=== PATIENT | male | born 1955 | race African-American/Black ===

== ENCOUNTER 2018-07-22 20:23 | Emergency (ER) | payer OTHER ==
--- OUTSIDE RECORDS SUMMARY | 2018-07-22 20:32 | XMS REPORT | Clinical Summary ---
:1955 Author Organization [facility] Address [address] [place] [address] Care Team Providers Name Role Phone Sharpless Primary Care Provider Allergies No Known Allergies Medications Medication Sig Dispensed Refills Start End Status Date Date PROCTOSOL HC 2.5 % . 0 02/08/20 Active rectal cream 16 amLODIPine (NORVASC) 5 Take 1 tablet 90 tablet 3 03/11/20 Active MG tablet (5 mg total) by 16 mouth daily. atorvastatin (LIPITOR) Take 1 tablet 90 tablet 3 03/11/20 Active 40 MG tablet (40 mg total) 16 by mouth daily. clopidogrel (PLAVIX) Take 1 tablet 90 tablet 3 03/11/20 Active 75 mg tablet (75 mg total) 16 by mouth daily. ranitidine (ZANTAC) Take 1 capsule 180 capsule 3 03/11/20 Active 150 MG capsule (150 mg total) 16 by mouth 2 (two) times daily. carvedilol (COREG) Take 1 tablet 180 tablet 3 03/11/20 Active 12.5 MG tablet (12.5 mg total) 16 by mouth 2 (two) times daily with breakfast and dinner. losartan (COZAAR) 100 Take 1 tablet 90 tablet 3 03/11/20 Active MG tablet (100 mg total) 16 by mouth daily. clopidogrel bisulfate Take 75 mg by 0 Active (PLAVIX ORAL) mouth daily . ranitidine (ZANTAC) Take 150 mg by 0 Active 150 MG tablet mouth 2 (two) times daily. aspirin 81 MG EC Take 81 mg by 0 Active tablet mouth daily. memantine (NAMENDA) 10 Take 10 mg by 0 Active MG tablet mouth 2 (two) times daily. losartan (COZAAR) 100 Take 100 mg by 0 Active MG tablet mouth daily. OXcarbazepine Take 300 mg by 0 Active (TRILEPTAL) 300 MG mouth 2 (two) tablet times daily. cephalexin (KEFLEX) Take 500 mg by 0 Active 500 MG capsule mouth daily Pt. Uses to prevent UTI for chronic catheter use. . QUEtiapine (SEROQUEL) Take 25 mg by 0 Active 25 MG tablet mouth nightly. amLODIPine (NORVASC) Take 10 mg by 0 Active 10 MG tablet mouth daily. levETIRAcetam (KEPPRA) Take 1,000 mg 0 Active 1000 MG tablet by mouth 2 (two) times daily. atorvastatin (LIPITOR) Take 40 mg by 0 Active 40 MG tablet mouth daily At bedtime . hydroCHLOROthiazide Take 1 tablet 0 05/28/20 Active (HYDRODIURIL) 25 MG (25 mg total) 18 019 tablet by mouth daily. carvedilol (COREG) Take 1 tablet 0 05/27/20 Active 3.125 MG tablet (3.125 mg 18 019 total) by mouth 2 (two) times daily. ipratropium-albuterol Take 3 mLs by 0 05/27/20 Active (DUO-NEB) 0.5 mg-3 nebulization 18 019 mg(2.5 mg base)/3 mL every 4 (four) nebulizer solution hours as needed for Wheezing for up to 360 days. cloNIDine HCl Take 0.3 mg by 0 Discontinued (CATAPRES) 0.3 MG mouth 3 (three) 018 tablet times daily. 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, without status epilepticus Essential hypertension 05/20/2018 Acute cystitis without hematuria 05/20/2018 Acute ischemic stroke 05/18/2018 Aphasia as late effect of cerebrovascular accident 03/06/2016 Uncomplicated alcohol dependence 03/06/2016 Focal epilepsy 03/06/2016 VITALY (acute kidney injury) 03/06/2016 Status epilepticus 02/28/2016 Acute encephalopathy 02/28/2016 Stroke (cerebrum) 02/27/2016 Stroke 12/22/2014 Gait disturbance 12/22/2014 STEMI (ST elevation myocardial infarction) 09/23/2014 Encounters Date Type Specialty Care Team Description 05/26/2018 Anesthesia Event Gastroenterology Yvon Sanchez MD 05/26/2018 Surgery Gastroenterology Aleksandr, UPPER ENDOSCOPY,PEG Chandu King MD 05/20/2018 Travel 05/19/2018 Travel 05/18/2018 Hospital General Internal VuKaia, Cerebrovascular accident (CVA), unspecified mechanism (HCC) (Primary Dx); - Encounter Medicine Hypertension, unspecified type; 05/28/2018 Zeynep Dong History of CVA (cerebrovascular accident); MD Aixa Renal insufficiency; Changela, Acute cystitis without hematuria; Laurel Lester MD Aspiration pneumonia, unspecified aspiration pneumonia type, unspecified laterality, unspecified part of lung (HCC); [facility] Essential hypertension; Vita Anthony Stage 3 chronic kidney disease (HCC); Patrizia Chronic systolic congestive heart failure ([facility]) MD 05/18/2018 Orders Only General Internal Medicine after 07/21/2017 Social History Tobacco Use Types Packs/Day Years Used Date Former Smoker Smokeless Tobacco: Never Used Alcohol Use Drinks/Week oz/Week Comments Yes 6 CANS OF BEER A DAY. Sex Assigned at Date Recorded Not on file Job Start Date Occupation Industry Not on file Not on file Not on file Travel History Travel Start Travel End No recent travel history available. Last Filed Vital Signs Vital Sign Reading Time Taken Blood Pressure 125/83 05/28/2018 11:42 AM [facility] Pulse 74 05/28/2018 11:42 AM [facility] Temperature 36.4 C (97.5 F) 05/28/2018 11:42 AM [facility] Respiratory Rate 18 05/28/2018 11:42 AM [facility] Oxygen Saturation 98% 05/28/2018 11:42 AM [facility] Inhaled Oxygen Concentration 30% 05/28/2018 5:00 AM [facility] Weight 109.2 kg (240 lb 11.9 oz) 05/21/2018 6:00 AM CDT Height 180.3 cm (5' 11") 05/19/2018 6:24 PM CDT Body Mass Index 33.58 05/21/2018 6:00 AM CDT Plan of Treatment Not on file Implants Implanted Type Area Broadcast Engineer Device Shelf Model / Identifier Expiration Date Serial / Lot Multi-Link Vision KAY 04/20/2017 [id number] / Implanted: Qty: 1 on 09/23/2014 [facility] / [id number] Procedures Procedure Name Priority Date/Time Associated Comments Diagnosis ARRYTHMIA IMPLANT 05/29/2018 1:00 REPORT - SCAN PM [facility] [employer] [facility] RHYTHM STRIP - SCAN 05/29/2018 1:00 PM [employer] [employer] RHYTHM STRIP - SCAN 05/29/2018 7:01 AM [facility] [employer] ECHOCARDIOGRAM REPORT - 05/29/2018 7:01 SCAN AM [facility] [employer] VASCULAR DIAGRAM -SCAN 05/29/2018 7:01 AM [employer] RHYTHM STRIP - SCAN 05/29/2018 7:01 AM [employer] CARDIAC CATH REPORT - 05/29/2018 7:00 SCAN AM [employer] ECHOCARDIOGRAM REPORT - 05/29/2018 7:00 SCAN AM [employer] RHYTHM STRIP - SCAN 05/29/2018 7:00 AM [employer] RHYTHM STRIP - SCAN 05/29/2018 7:00 AM [facility] [employer] CARDIAC CATH REPORT - 05/29/2018 7:00 SCAN AM [facility] [employer] REPORT OF PROCEDURE - 05/29/2018 7:00 ENDOSCOPY SCAN AM [facility] [employer] VASCULAR DIAGRAM -SCAN 05/29/2018 7:00 AM [facility] [employer] RHYTHM STRIP - SCAN 05/29/2018 7:00 AM [facility] [employer] ECHOCARDIOGRAM REPORT - 05/29/2018 7:00 SCAN AM [facility] [employer] [facility] POCT-GLUCOSE METER Routine 05/28/2018 12:25 Results for this PM [facility] [employer] procedure are in the results section. POCT-GLUCOSE METER Routine 05/28/2018 5:49 Results for this AM [facility] [employer] procedure are in the results section. POCT-GLUCOSE METER Routine 05/27/2018 11:45 Results for this PM [facility] [employer] procedure are in the results section. POCT-GLUCOSE METER Routine 05/27/2018 5:41 Results for this PM [facility] [employer] procedure are in the results section. POCT-GLUCOSE METER Routine 05/27/2018 12:38 Results for this PM [employer] [employer] procedure are in the results section. POCT-GLUCOSE METER Routine 05/27/2018 6:49 Results for this AM [facility] [employer] procedure are in the results section. POCT-GLUCOSE METER Routine 05/27/2018 12:53 Results for this AM [facility] [employer] procedure are in the results section. POCT-GLUCOSE METER Routine 05/26/2018 4:54 Results for this PM [facility] [employer] procedure are in the results section. REPORT OF PROCEDURE - 05/26/2018 11:42 ENDOSCOPY URL AM [facility] [employer] [facility] UPPER ENDOSCOPY,PEG 05/26/2018 11:00 Dysphagia, AM [facility] [employer] unspecified type POCT-GLUCOSE METER Routine 05/26/2018 5:33 Results for this AM [facility] [employer] procedure are in the results section. PHOSPHORUS Routine 05/26/2018 4:37 Results for this AM [facility] [employer] procedure are in the results section. VANCOMYCIN LEVEL, Timed 05/26/2018 4:37 Results for this TROUGH AM [facility] [employer] procedure are in the results section. POCT-GLUCOSE METER Routine 05/25/2018 11:20 Results for this PM [facility] [employer] procedure are in the results section. XR ABDOMEN 1 VIEW Routine 05/25/2018 5:58 Results for this PM [facility] [employer] procedure are in the results section. POCT-GLUCOSE METER Routine 05/25/2018 4:06 Results for this PM [facility] [employer] procedure are in the results section. POCT-GLUCOSE METER Routine 05/25/2018 6:28 Results for this AM [facility] [employer] procedure are in the results section. BASIC METABOLIC PANEL Routine 05/25/2018 5:58 Results for this (7) AM [facility] [employer] [facility] procedure are in the results section. PHOSPHORUS Routine 05/25/2018 5:58 Results for this AM [facility] [employer] [facility] procedure are in the results section. POCT-GLUCOSE METER Routine 05/25/2018 12:03 Results for this AM CDT procedure are in the results section. ECG 12-LEAD Routine 05/24/2018 4:56 Results for this PM CDT procedure are in the results section. ECG 12-LEAD Routine 05/24/2018 4:56 PM CDT Procedure Note - Interface, External Ris In - 05/24/2018 5:14 PM CDT Ventricular Rate 84 BPM Atrial Rate 84 BPM P-R Interval 122 ms QRS Duration 116 ms Q-T Interval 394 ms QTC Calculation(Bazett) 465 ms P Dickens 102 degrees R Dickens -44 degrees T Dickens 216 degrees Normal sinus rhythm Left axis deviation Left ventricular hypertrophy with QRS widening and repolarization abnormality Inferior infarct (cited on or before 18-MAY-2018) Abnormal ECG When compared with ECG of 21-MAY-2018 11:02, Premature ventricular complexes are no longer Present T wave inversion more evident in Inferior leads POCT-GLUCOSE METER Routine 05/24/2018 12:20 PM CDT PHOSPHORUS Routine 05/24/2018 5:40 AM CDT POCT-GLUCOSE METER Routine 05/24/2018 5:29 AM CDT POCT-GLUCOSE METER Routine 05/23/2018 11:30 PM CDT ECHOCARDIOGRAM REPORT - 05/23/2018 4:21 PM CDT SCAN POCT-GLUCOSE METER Routine 05/23/2018 11:45 AM CDT 2D ECHO W/ DOPPLER Routine 05/23/2018 10:50 AM CDT Results for this (CW/PW/COLOR) procedure are in the results section. POCT-GLUCOSE METER Routine 05/23/2018 6:33 AM CDT CBC W/PLT COUNT & AUTO Routine 05/23/2018 3:38 AM CDT Results for this DIFFERENTIAL procedure are in the results section. BASIC METABOLIC PANEL (7) Routine 05/23/2018 3:38 AM CDT CBC W/PLT COUNT & AUTO Routine 05/23/2018 3:38 AM CDT Results for this DIFFERENTIAL procedure are in the results section. POCT-GLUCOSE METER Routine 05/23/2018 12:00 AM CDT SPUTUM CULTURE + GRAM STAIN Routine 05/22/2018 8:19 PM CDT VANCOMYCIN LEVEL, TROUGH Timed 05/22/2018 7:02 PM CDT POCT-GLUCOSE METER Routine 05/22/2018 6:31 PM CDT POCT-GLUCOSE METER Routine 05/22/2018 1:26 PM CDT VITAMIN B12 Routine 05/22/2018 11:08 AM CDT TSH/FREE T4 IF INDICATED Routine 05/22/2018 11:08 AM CDT BLOOD GAS, ARTERIAL Routine 05/22/2018 10:10 AM CDT XR CHEST 1 VIEW Routine 05/22/2018 9:38 AM CDT Results for this PORTABLE/BEDSIDE procedure are in the results section. POCT-GLUCOSE METER Routine 05/22/2018 6:22 AM CDT CBC W/PLT COUNT & AUTO Routine 05/22/2018 3:48 AM CDT Results for this DIFFERENTIAL procedure are in the results section. BASIC METABOLIC PANEL (7) Routine 05/22/2018 3:48 AM CDT CBC W/PLT COUNT & AUTO Routine 05/22/2018 3:48 AM CDT Results for this DIFFERENTIAL procedure are in the results section. POCT-GLUCOSE METER Routine 05/22/2018 12:40 AM CDT POCT-GLUCOSE METER Routine 05/21/2018 6:27 PM CDT POCT-GLUCOSE METER Routine 05/21/2018 12:17 PM CDT ECG 12-LEAD Routine 05/21/2018 11:02 AM CDT CBC W/PLT COUNT & AUTO Routine 05/21/2018 3:15 AM CDT Results for this DIFFERENTIAL procedure are in the results section. CBC W/PLT COUNT & AUTO Routine 05/21/2018 3:15 AM CDT Results for this DIFFERENTIAL procedure are in the results section. BASIC METABOLIC PANEL (7) Routine 05/21/2018 3:15 AM CDT POCT-GLUCOSE METER Routine 05/20/2018 10:14 PM CDT XR ABDOMEN 1 VIEW STAT 05/20/2018 10:13 PM CDT XR ABDOMEN 1 VIEW STAT 05/20/2018 10:13 PM CDT XR ABDOMEN 1 VIEW STAT 05/20/2018 10:13 PM CDT POCT-GLUCOSE METER Routine 05/20/2018 6:10 PM CDT POCT-GLUCOSE METER Routine 05/20/2018 12:47 PM CDT SPUTUM CULTURE + GRAM STAIN STAT 05/20/2018 8:40 AM CDT POCT-GLUCOSE METER Routine 05/20/2018 8:16 AM CDT BLOOD GAS, ARTERIAL STAT 05/20/2018 4:39 AM CDT URINALYSIS W/ REFLEX URINE STAT 05/20/2018 4:07 AM CDT Results for this CULTURE procedure are in the results section. URINE CULTURE STAT 05/20/2018 4:07 AM CDT XR ABDOMEN 1 VIEW Routine 05/20/2018 4:05 AM CDT BLOOD CULTURE Routine 05/20/2018 2:30 AM CDT (CELLAVISION MANUAL DIFF) Routine 05/20/2018 2:18 AM CDT CBC W/PLT COUNT & AUTO Routine 05/20/2018 2:18 AM CDT Results for this DIFFERENTIAL procedure are in the results section. BASIC METABOLIC PANEL (7) Routine 05/20/2018 2:18 AM CDT CBC W/PLT COUNT & AUTO Routine 05/20/2018 2:18 AM CDT Results for this DIFFERENTIAL procedure are in the results section. BLOOD CULTURE Routine 05/20/2018 2:18 AM CDT BLOOD GAS, ARTERIAL STAT 05/20/2018 12:15 AM CDT POCT-GLUCOSE METER Routine 05/19/2018 9:43 PM CDT POCT-GLUCOSE METER Routine 05/19/2018 5:59 PM CDT XR ABDOMEN 1 VIEW STAT 05/19/2018 5:30 PM CDT XR ABDOMEN 1 VIEW STAT 05/19/2018 3:51 PM CDT XR ABDOMEN 1 VIEW STAT 05/19/2018 1:36 PM CDT POCT-GLUCOSE METER Routine 05/19/2018 12:37 PM CDT XR CHEST 1 VIEW Routine 05/19/2018 12:16 PM CDT Results for this PORTABLE/BEDSIDE procedure are in the results section. POCT-GLUCOSE METER Routine 05/19/2018 8:59 AM CDT TROPONIN I Routine 05/19/2018 8:19 AM CDT LIPID PANEL Routine 05/19/2018 5:55 AM CDT POCT-GLUCOSE METER Routine 05/19/2018 1:55 AM CDT CAROTID DOPPLER BILATERAL Routine 05/19/2018 1:12 AM CDT TROPONIN I Routine 05/19/2018 12:00 AM CDT PHOSPHORUS STAT 05/18/2018 6:56 PM CDT CALCIUM, IONIZED STAT 05/18/2018 6:56 PM CDT RPR Routine 05/18/2018 6:49 PM CDT HEMOGLOBIN A1C AP Routine 05/18/2018 6:41 PM CDT URINALYSIS W/ REFLEX URINE STAT 05/18/2018 6:37 PM CDT Results for this CULTURE procedure are in the results section. URINE CULTURE STAT 05/18/2018 6:37 PM CDT MR BRAIN WITHOUT IV STAT 05/18/2018 4:26 PM CDT Results for this CONTRAST procedure are in the results section. MR MRA NECK WITHOUT IV STAT 05/18/2018 4:26 PM CDT Results for this CONTRAST procedure are in the results section. MR MRA HEAD WITHOUT STAT 05/18/2018 4:26 PM CDT Results for this CONTRAST procedure are in the results section. CT/CTA CAROTID STAT 05/18/2018 1:[address]/CTA BRAIN STAT 05/18/2018 1:12 PM CDT CREATINE KINASE (CK), TOTAL STAT 05/18/2018 12:27 PM CDT Results for this AND MB procedure are in the results section. TROPONIN I STAT 05/18/2018 12:27 PM CDT MAGNESIUM STAT 05/18/2018 12:27 PM CDT BASIC METABOLIC PANEL (7) STAT 05/18/2018 12:27 PM CDT ECG 12-LEAD Routine 05/18/2018 11:39 AM CDT Procedure Note - Interface, External Ris In - 05/18/2018 5:21 PM CDT Ventricular Rate 89 BPM Atrial Rate 89 BPM P-R Interval 102 ms QRS Duration 134 ms Q-T Interval 408 ms QTC Calculation(Bazett) 496 ms P Dickens 70 degrees R Dickens -50 degrees T Dickens 263 degrees Sinus rhythm with sinus arrhythmia with short WA with occasional Premature ventricular complexes Left axis deviation Left ventricular hypertrophy with QRS widening Inferior infarct , age undetermined Anterolateral infarct , age undetermined Abnormal ECG No previous ECGs available ECG 12-LEAD STAT 05/18/2018 11:39 AM CDT POCT-GLUCOSE METER Routine 05/18/2018 11:[address] BRAIN WITHOUT IV CONTRAST STAT 05/18/2018 11:37 AM CDT ED ECG INTERPRETATION Routine 05/18/2018 11:30 AM CDT CRITICAL CARE Routine 05/18/2018 11:30 AM CDT CBC W/PLT COUNT & AUTO STAT 05/18/2018 11:18 AM CDT Results for this DIFFERENTIAL procedure are in the results section. PT/APTT STAT 05/18/2018 11:18 AM CDT CBC W/PLT COUNT & AUTO STAT 05/18/2018 11:18 AM CDT Results for this DIFFERENTIAL procedure are in the results section. XR CHEST 1 VIEW STAT 05/18/2018 11:18 AM CDT Results for this PORTABLE/BEDSIDE procedure are in the results section. after 07/21/2017 Results ARRYTHMIA IMPLANT REPORT - SCAN (05/29/2018 1:00 PM [facility]) Narrative Performed At RHYTHM STRIP - SCAN (05/29/2018 1:00 PM [facility] [employer] [facility])Only the most recent of6 resultswithin the time period is included. Narrative Performed At ECHOCARDIOGRAM REPORT - SCAN (05/29/2018 7:01 AM [facility] [employer] [facility]) Narrative Performed At VASCULAR DIAGRAM -SCAN (05/29/2018 7:01 AM [facility] [employer] [facility])Only the most recent of2 resultswithin the time period is included. Narrative Performed At CARDIAC CATH REPORT - SCAN (05/29/2018 7:00 AM [facility] [employer] [facility]) Narrative Performed At ECHOCARDIOGRAM REPORT - SCAN (05/29/2018 7:00 AM [facility] [employer] [facility]) Narrative Performed At CARDIAC CATH REPORT - SCAN (05/29/2018 7:00 AM [facility] [employer] [facility]) Narrative Performed At EKG-SCANNED (05/29/2018 7:00 AM [facility] [employer] [facility]) Narrative Performed At ECHOCARDIOGRAM REPORT - SCAN (05/29/2018 7:00 AM [facility] [employer] [facility]) Narrative Performed At POC-Glucose meter (05/28/2018 12:25 PM [facility] [employer] [facility])Only the most recent of35 resultswithin the time period is included. POC-Glucose Meter 130 (H)Comment: TESTED AT 70 - 110 mg/dL [address] [address] Specimen Blood Performing Organization Address City/[facility]/Zipcode Phone Number [address] [address] [phone] [facility] REPORT OF PROCEDURE - ENDOSCOPY URL (05/26/2018 11:42 AM [facility] [employer] [facility]) Narrative Performed At Phosphorus (05/26/2018 4:37 AM [facility])Only the most recent of4 resultswithin the time period is included. Phosphorus 4.0 2.3 - 4.7 mg/dL [facility] Specimen Blood - Arm, Right Narrative Performed At Check Serum Phosphorus level 4 hours after IV [facility] phosphorus replacement or 8 hours after PO replacement completed. Performing Organization Address City/[facility]/Zipcode Phone Number [address] [address] CENTER Vancomycin level, trough (05/26/2018 4:37 AM [facility] [employer] [facility])Only the most recent of2 resultswithin the time period is included. Vancomycin Tr 17.8 10.0 - 20.0 ug/mL [facility] Specimen Blood - Arm, Right Narrative Performed At Wait for result before giving dose. HOLD [facility] vancomycin if trough >20 Performing Organization Address City/State/Zipcode Phone Number [facility] [address] [place] [address] CENTER XR abdomen / KUB 1 view (05/25/2018 5:58 PM [facility] [employer] [facility])Only the most recent of8 resultswithin the time period is included. Narrative Performed At FINAL REPORT GE RIS INDICATION: Abdominal pain and distention. Evaluate for ileus. COMPARISON: May 20, 2018 TECHNIQUE: Abdomen radiograph one view. FINDINGS / IMPRESSION: There is a feeding tube that courses to the stomach with the tip projecting over the expected location of the duodenal bulb, probably postpyloric. Bowel gas pattern is unremarkable (no ileus or obstruction). Right total hip arthroplasty partially imaged. Signed: Andrea Barrera MD Report Verified Date/Time:05/25/2018 18:05:40 Reading Location: [address] Ortho Consult Reading Room Procedure Note Interface, External Ris In - 05/25/2018 6:07 PM [facility] [employer] [facility] FINAL REPORT INDICATION: Abdominal pain and distention. Evaluate for ileus. COMPARISON: May 20, 2018 TECHNIQUE: Abdomen radiograph one view. FINDINGS / IMPRESSION: There is a feeding tube that courses to the stomach with the tip projecting over the expected location of the duodenal bulb, probably postpyloric. Bowel gas pattern is unremarkable (no ileus or obstruction). Right total hip arthroplasty partially imaged. Signed: Andrea Barrera MD Report Verified Date/Time: 05/25/2018 18:05:40 Reading Location: [facility] B1 [id number] Ortho Consult Reading Room Performing Organization Address City/State/Zipcode Phone Number GE RIS Basic Metabolic Panel (05/25/2018 5:58 AM [facility] [employer] [facility])Only the most recent of6 resultswithin the time period is included. Sodium 137 136 - 145 meq/L [facility] Potassium 4.1 3.5 - 5.1 meq/L [facility] Chloride 102 98 - 107 meq/L [facility] CO2 26 22 - 29 meq/L [facility] BUN 31 (H) 7 - 21 mg/dL [facility] Creatinine 1.71 (H) 0.57 - 1.25 mg/dL [facility] Glucose 110 (H) 70 - 105 mg/dL [facility] Calcium 8.9 8.4 - 10.2 mg/dL [facility] EGFR 49Comment: ESTIMATED GFR IS mL/min/1.73 sq m [facility] NOT ACCURATE CREATININE [facility] CLEARANCE IN PREDICTING GLOMERULAR FILTRATION RATE. ESTIMATED GFR IS NOT APPLICABLE FOR DIALYSIS PATIENTS. Specimen Blood Narrative Performed At Check Serum Phosphorus level 4 hours after IV [facility] phosphorus replacement or 8 hours after PO replacement completed. Performing Organization Address City/State/Zipcode Phone Number [facility] [address] [place] [address] CENTER ECG 12 lead (05/24/2018 4:56 PM CDT)Only the most recent of3 resultswithin the time period is included. Narrative Performed At Ventricular Rate 84 BPM GE MUSE Atrial Rate 84 BPM P-R Interval 122 ms QRS Duration 116 ms Q-T Interval 394 ms QTC Calculation(Bazett) 465 ms P Dickens 102 degrees R Dickens -44 degrees T Dickens 216 degrees Normal sinus rhythmwith short WA interval Left axis deviation Left ventricular hypertrophy with QRS widening and repolarization abnormality Inferior infarct (cited on or before 18-MAY-2018) Nonspecific T wave abnormality Prolonged QT When compared with ECG of 21-MAY-2018 11:02, Premature ventricular complexes are no longer Present T waves no longer negative in V2-V3 Confirmed by MD ALICIA, CHANNING ([id number]) on 05/26/2018 6:51:16 AM Procedure Note Interface, External Ris In - 05/26/2018 6:51 AM [facility] Ventricular Rate 84 BPM Atrial Rate 84 BPM P-R Interval 122 ms QRS Duration 116 ms Q-T Interval 394 ms QTC Calculation(Bazett) 465 ms P Dickens 102 degrees R Dickens -44 degrees T Dickens 216 degrees Normal sinus rhythm with short WA interval Left axis deviation Left ventricular hypertrophy with QRS widening and repolarization abnormality Inferior infarct (cited on or before 18-MAY-2018) Nonspecific T wave abnormality Prolonged QT When compared with ECG of 21-MAY-2018 11:02, Premature ventricular complexes are no longer Present T waves no longer negative in V2-V3 Confirmed by MD ALICIA, CHANNING ([id number]) on 05/26/2018 6:51:16 AM Performing Organization Address City/State/Zipcode Phone Number [email or web address] ECHOCARDIOGRAM REPORT - SCAN (05/23/2018 4:21 PM CDT) Narrative Performed At 2D Echo W/Doppler(CW/PW/Color) (05/23/2018 10:50 AM CDT) Ejection Fraction [facility] Narrative Performed At Transthoracic Echocardiography Report (TTE) [facility] Demographics Patient Name Vinay BOLAÑOS of Study 05/23/2018 [id number] GenderMale Visit Number [id number] RaceUnknown [id number] Room Number 7511 Number Date of Birth1955 Referring Physician Pedro Garrison Age62 year(s) Manager Programming Miguelito Miranda AnalystAlex ZadeInterpreting Royal Winkler Physician Procedure Type of Study TTE procedure:2DECHO W DOPPLER(CW/PW/COLOR) (Routine) Indications:Stroke work up. Clinical History HGB 16.4 HCT 49.7 % PNEUMONIA HTN Height: 71 inches Weight: 108.86 kg (240 lbs) BSA: 2.28 m^2 BMI: 33.47 kg/m^2 HR: 91 bpm BP: 141/91 mmHg Summary IV saline contrast injection was negative for a PFO (patent foramen ovale) at rest and post Valsalva . The left ventricle is chamber size (by vol index) is normal (male - LVED vol - 34-74ml/m2). Normal LV wall thickness. The following segment(s) appear akinetic: basal inferior, inferolateral . The other segments contract normally. Global LV systolic function mildly reduced . Estimated LVEF by qualitative assessment is mildly reduced (40-44%) . Estimated peak systolic PA pressure is 25-30 mmHg . No evidence of pericardial effusion. Signature Findings Technical Quality: Technically adequate exam. Left Ventricle The left ventricle is chamber size (by vol index) is normal (male - LVED vol - 34-74ml/m2). Normal LV wa ll thickness. The following segment(s) appear ak inetic: basal inferior, inferolateral . The other se gments contract normally. Global LV systolic fu nction mildly reduced . Estimated LVEF by qu alitative assessment is mildly reduced (40-44%) . Left AtriumLA size is normal . Right VentricleNormal right ventricle structure and function. Right Atrium Normal right atrium. Atrial SeptumIV saline contrast injection was negative for a PFO (p atent foramen ovale) at rest and post Valsalva . Aortic Valve Mild AoV cusp thickening. A trace of aortic regurgitation. Mitral Valve Mild mitral regurgitation. Mild MV leaflet th ickening. Tricuspid ValveA trace of tricuspid regurgitation. A trace of tricuspid regurgitation. Es timated peak systolic PA pressure is 25-30 mmHg . Pulmonic Valve Normal PV structure and function by limited views an d Doppler. AortaAortic root size (SInus of Valsalva diameter) is no rmal . PericardiumNo evidence of pericardial effusion. IVC/SVC/PA/PV/PleuralThe estimated RA pressure by IVC dynamics 0-5mmHg . Chambers/Structures Left Atrium LA Dimension: 3.04 cmLA Area: 19.98 cm^2 LA Volume: 57.18 ml LA Vol. Index: 25 ml/m^2 Left Ventricle LVIDd: 6.47 cm LVEDV:177.54 ml LV Septum Diastolic: 1.11 cmLVEF 2D Cube: 55.8 % LV PW Diastolic: 1.07 cm LVEDV Gant's:134.16 ml LV Length: 8.29 cm LVESV Gant's:74.2 ml LVEF Gant's: 44.9 %LVEDV I: 59 ml/m^2 LVESVI: 33 ml/m^2 LVOT Diameter: 2.12 cm Aorta Ao Root S of Opal.: 3.3 cm Doppler/Quantitative Measurements Mitral Valve MV Peak E-Wave: 0.56 m/s MV Peak A-Wave: 0.73 m/s E/A Ratio: 0.77 Peak Gradient: 1.26 mmHg Deceleration Time: 139.5 msec MV Sb. Peak: Aortic Valve Peak Velocity: 1.4 m/s Mean Velocity: 0.94 m/s Peak Gradient: 7.85 mmHg Mean Gradient: 3.99 mmHg AV Area (continuity): 2.66 cm^2 AV VTI: 21.9 cm AV DVI: 0.75 LVOT Peak Velocity: 1.03 m/s Peak Gradient: 4.29 mmHg Mean Velocity: 0.66 m/s Mean Gradient: 2.08 mmHg LVOT Diameter: 2.12 cmLVOT VTI: 16.5 cm LVOT Area: 3.53 cm^2LVOT SV:58.21 ml LVOT CO: 5.3 l/minLVOT CI: 2.32 l/min/m^2 Procedure Note Interface, External Ris In - 05/23/2018 3:31 PM CDT Transthoracic Echocardiography Report (TTE) Demographics Patient Name DAKOTAH BOLAÑOS Date of Study 05/23/2018 Gender Male Visit Number [id number] Race Unknown Room Number 7511 Number Date of 1955 Referring Physician Pedro Garrison Age 62 year(s) 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 Clinical History HGB 16.4 HCT 49.7 % PNEUMONIA HTN Height: 71 inches Weight: 108.86 kg (240 lbs) BSA: 2.28 m^2 BMI: 33.47 kg/m^2 HR: 91 bpm BP: 141/91 mmHg Summary IV saline contrast injection was negative for a PFO (patent foramen ovale) at rest and post Valsalva . The left ventricle is chamber size (by vol index) is normal (male - LVED vol - 34-74ml/m2). Normal LV wall thickness. The following segment(s) appear akinetic: basal inferior, inferolateral . The other segments contract normally. Global LV systolic function mildly reduced . Estimated LVEF by qualitative assessment is mildly reduced (40-44%) . Estimated peak systolic PA pressure is 25-30 mmHg . No evidence of pericardial effusion. Signature Findings Technical Quality: Technically adequate exam. Left Ventricle The left ventricle is chamber size (by vol index) is normal (male - LVED vol - 34-74ml/m2). Normal LV wall thickness. The following segment(s) appear akinetic: basal inferior, inferolateral . The other segments contract normally. Global LV systolic function mildly reduced . Estimated LVEF by qualitative assessment is mildly reduced (40-44%) . Left Atrium LA size is normal . Right Ventricle Normal right ventricle structure and function. Right Atrium Normal right atrium. Atrial Septum IV saline contrast injection was negative for a PFO (patent foramen ovale) at rest and post Valsalva . Aortic Valve Mild AoV cusp thickening. A trace of aortic regurgitation. Mitral Valve Mild mitral regurgitation. Mild MV leaflet thickening. Tricuspid Valve A trace of tricuspid regurgitation. A trace of tricuspid regurgitation. Estimated peak systolic PA pressure is 25-30 mmHg . Pulmonic Valve Normal PV structure and function by limited views and Doppler. Aorta Aortic root size (SInus of Valsalva diameter) is normal . Pericardium No evidence of pericardial effusion. IVC/SVC/PA/PV/Pleural The estimated RA pressure by IVC dynamics 0-5mmHg . Chambers/Structures Left Atrium LA Dimension: 3.04 cm LA Area: 19.98 cm^2 LA Volume: 57.18 ml LA Vol. Index: 25 ml/m^2 Left Ventricle LVIDd: 6.47 cm LVEDV:177.54 ml LV Septum Diastolic: 1.11 cm LVEF 2D Cube: 55.8 % LV PW Diastolic: 1.07 cm LVEDV Gant's:134.16 ml LV Length: 8.29 cm LVESV Gant's:74.2 ml LVEF Gant's: 44.9 % LVEDVI: 59 ml/m^2 LVESVI: 33 ml/m^2 LVOT Diameter: 2.12 cm Aorta Ao Root S of Opal.: 3.3 cm Doppler/Quantitative Measurements Mitral Valve MV Peak E-Wave: 0.56 m/s MV Peak A-Wave: 0.73 m/s E/A Ratio: 0.77 Peak Gradient: 1.26 mmHg Deceleration Time: 139.5 msec MV Sb. Peak: Aortic Valve Peak Velocity: 1.4 m/s Mean Velocity: 0.94 m/s Peak Gradient: 7.85 mmHg Mean Gradient: 3.99 mmHg AV Area (continuity): 2.66 cm^2 AV VTI: 21.9 cm AV DVI: 0.75 LVOT Peak Velocity: 1.03 m/s Peak Gradient: 4.29 mmHg Mean Velocity: 0.66 m/s Mean Gradient: 2.08 mmHg LVOT Diameter: 2.12 cm LVOT VTI: 16.5 cm LVOT Area: 3.53 cm^2 LVOT SV:58.21 ml LVOT CO: 5.3 l/min LVOT CI: 2.32 l/min/m^2 Performing Organization Address City/State/Zipcode Phone Number [facility] CBC with platelet count + automated diff (05/23/2018 3:38 AM CDT)Only the most recent of5 resultswithin the time period is included. WBC 9.3 3.5 - 10.5 K/L [facility] RBC 5.23 4.63 - 6.08 M/L [facility] Hemoglobin 16.4 13.7 - 17.5 GM/DL [facility] Hematocrit 49.7 40.1 - 51.0 % [facility] MCV 95.0 (H) 79.0 - 92.2 fL [facility] MCH 31.4 25.7 - 32.2 pg [facility] MCHC 33.0 32.3 - 36.5 GM/DL [facility] RDW 13.2 11.6 - 14.4 % [facility] Platelets 123 (L) 150 - 450 K/CU MM [facility] MPV 11.9 9.4 - 12.4 fL [facility] nRBC 0 0 - 0 /100 WBC [facility] % Neutros 63 % [facility] % Lymphs 17 % [facility] % Monos 15 % [facility] % Eos 3 % [facility] % Baso 1 % [facility] # Neutros 5.86 (H) 1.78 - 5.38 K/L [facility] # Lymphs 1.61 1.32 - 3.57 K/L [facility] # Monos 1.37 (H) 0.30 - 0.82 K/L [facility] # Eos 0.32 0.04 - 0.54 K/L [facility] # Baso 0.07 0.01 - 0.08 K/L [facility] Immature Granulocytes-Relative 1 0 - 1 % [facility] Specimen Blood - Arm, Left Performing Organization Address [facility] Phone Number [address] [address] [place] Sputum Culture + Gram Stain (05/22/2018 8:19 PM CDT)Only the most recent of2 resultswithin the time period is included. Result <1+ Normal respiratory paxton [facility] Gram Stain Result 1+ WBCs [facility] Gram Stain Result >25 epithelial cells [facility] Gram Stain Result No organisms seen [facility] Specimen Sputum - Suctioned Performing Organization Address [facility] Phone Number [address] [address] [place] TSH/Free T4 If Indicated (05/22/2018 11:08 AM CDT) TSH 0.53 0.35 - 4.94 uIU/mL [facility] Specimen Blood Performing Organization Address City/[facility] Phone Number [address] [address] [place] Vitamin B12 (05/22/2018 11:08 AM CDT) Vitamin B12 815 213 - 816 pg/mL [facility] Specimen Blood Performing Organization Address City/[facility] Phone Number [address] [address] [place] Blood gas, arterial (05/22/2018 10:10 AM CDT)Only the most recent of3 resultswithin the time period is included. pH, Arterial 7.45 7.35 - 7.45 [facility] pCO2, Arterial 36 35 - 45 mmHg [facility] pO2, Arterial 110 (H) 80 - 90 mmHg [facility] O2 Sat, Arterial 98.2 (H) 96.0 - 97.0 % [facility] HCO3, Arterial 24 21 - 29 mmol/L [facility] Base Excess, Arterial 0.6 -2.0 - 3.0 mmol/L [facility] Patient Temperature 36.9 C [facility] FIO2 28.0 % [facility] Specimen Blood, Arterial - Arm, Right Performing Organization Address City/State/Zipcode Phone Number [facility] [address] [place], [place] [phone] CENTER XR chest 1 view portable / bedside (05/22/2018 9:38 AM CDT)Only the most recent of3 resultswithin the time period is included. Narrative Performed At FINAL REPORT [facility] Chest one view compared to May 19 Discussion: Cardiac prominence and pulmonary congestion are similar in appearance to the prior study. No focal infiltrate. No effusion or pneumothorax. Feeding tube extends into stomach. Signed: Adin Dumont MD Report Verified Date/Time:05/22/2018 10:34:10 Reading Location: [facility] Radiology Reading Room Procedure Note Interface, External Ris In - 05/22/2018 10:36 AM CDT FINAL REPORT Chest one view compared to May 19 Discussion: Cardiac prominence and pulmonary congestion are similar in appearance to the prior study. No focal infiltrate. No effusion or pneumothorax. Feeding tube extends into stomach. Signed: Adin Dumont MD Report Verified Date/Time: 05/22/2018 10:34:10 Reading Location: [facility] Radiology Reading Room Performing Organization Address City/State/Zipcode Phone Number [facility] Urinalysis w/Microscopic + Reflex to Culture (05/20/2018 4:07 AM CDT)Only the most recent of2 resultswithin the time period is included. Color, UA Yellow [facility] Clarity, UA Hazy [facility] Specific [place], UA 1.023 1.001 - 1.035 [facility] pH, UA 5.5 5.0 - 8.0 [facility] Protein, UA 20 mg/dL (A) Negative [facility] Glucose, UA Negative Negative [facility] Ketones, UA Negative Negative [facility] Bilirubin, UA Negative Negative [facility] Blood, UA Moderate (A) Negative [facility] Nitrite, UA Positive (A) Negative [facility] Leukocytes, UA Large (A) Negative [facility] Urobilinogen, UA 0.2 0.2 - 1.0 mg/dL [facility] RBC, UA 71 /HPF [facility] WBC, UA 88 /HPF [facility] Mucus Rare [facility] Hyaline Casts, UA 4 /LPF [facility] Granular Casts, UA 1 /LPF [facility] Specimen Source [facility] Specimen Urine - Urine, Hernandez Performing Organization Address City/[facility] Phone Number [address] [address] CENTER Urine culture (05/20/2018 4:07 AM CDT)Only the most recent of2 resultswithin the time period is included. Result >100,000 col/mL Same organism has been isolated from cultures(s) of the same body site within 3 days. Repeat identification and susceptibility testing performed only after consultation with the clinical microbiology laboratory. (A) [facility] Comment: [facility] Refer to previous culture of Serratia marcescens Specimen Urine - Urine, Hernandez Performing Organization Address City/[facility] Phone Number [address] [place] [address] [phone] CENTER Blood culture (05/20/2018 2:30 AM CDT)Only the most recent of2 resultswithin the time period is included. Result No growth in 5 days [facility] Specimen Blood - Arm, Left Performing Organization Address City/[facility]/Zipcode Phone Number [address] [address] [phone] [place] Manual Differential (05/20/2018 2:18 AM CDT) % Neutros 77 % [facility] % Lymphs 6 % [facility] % Monos 15 % [facility] % Bands 1 0 - 10 % [facility] % Atypical Lymphs 1 (H) 0 - 0 % [facility] # Neutros 8.78 (H) 1.78 - 5.38 K/ul [facility] # Lymphs 0.68 (L) 1.32 - 3.57 K/ul [facility] # Monos 1.71 (H) 0.30 - 0.82 K/uL [facility] # Bands 0.11 0.00 - 0.80 K/uL [facility] # Atypical Lymphs 0.11 (H) 0.00 - 0.00 K/uL [facility] Total Counted 100 [facility] RBC Morphology Normal [facility] WBC Morphology Normal [facility] Platelet Morphology Normal [facility] Platelet Conc Decreased [facility] Specimen Blood - Arm, Right Narrative Performed At Received comment: [facility] User comments: Slide comments: Performing Organization Address City/[facility]/Zipcode Phone Number [address] [address] [phone] CENTER Troponin I (05/19/2018 8:19 AM CDT)Only the most recent of3 resultswithin the time period is included. Troponin I 0.01 0.00 - 0.03 ng/mL [facility] Specimen Blood - Arm, Left Narrative Performed At Troponin I (TnI) levels must be interpreted [facility] in the context of the presenting symptoms and the clinical findings. Elevated TnI levels indicate myocardial damage, but are not specific for ischemic heart disease. Elevated TnI levels are seen in patients with other cardiac conditions (including myocarditis and congestive heart failure), and slight TnI elevations occur in patients with other conditions, including sepsis, renal failure, acidosis, acute neurological disease, and persistent tachyarrhythmia. Performing Organization Address City/[facility] Phone Number [address] [address] [place] Fasting lipid panel (05/19/2018 5:55 AM CDT) Triglycerides 55Comment: Specimen slightly mg/dL [facility] Cholesterol 131Comment: Specimen slightly mg/dL [facility] HDL 40 mg/dL [facility] LDL Calculated 80 mg/dL [facility] Specimen Blood Narrative Performed At Triglyceride Reference Range: [facility] Low Risk <150 [id number] High Risk 200-499 Very High Risk>=500 Cholesterol Reference Range: Low Risk <200 [id number] High Risk>240 HDL Cholesterol Reference Range: Low Risk >=60 High Risk <40 LDL Cholesterol Reference Range: Optimal<100 Near [id number] Very High >=190 Fasting Performing Organization Address City/[facility] Phone Number [address] [address] [place] Carotid doppler bilateral (05/19/2018 1:12 AM CDT) Ejection Fraction [facility] Impressions Performed At Right Impression [facility] 1. There is <50% diameter reduction (approximately 29% by 2-D measurement) in the internal carotid artery with a peak velocity of 70.3/18.9 cm/sec and heterogeneous plaque. 2. There is non-occluding plaque in the external carotid artery. 3. There is non-occluding plaque in the common carotid artery. 4. The vertebral artery flow is antegrade . 5. The subclavian artery is within normal limits where visualized. Left Impression 1. There is <50% diameter reduction (approximately 23% by 2-D measurement) in the internal carotid artery with a peak velocity of 27.8/8.25 cm/sec and heterogeneous plaque. 2. There is non-occluding plaque in the external carotid artery. 3. There is non-occluding plaque in the common carotid artery. 4. The vertebral artery flow is antegrade . 5. The subclavian artery is within normal limits where visualized. Conclusions Summary Carotid duplex scanning and color flow imaging were performed bilaterally. The exam was technically difficult and the arteries were not well visualized due to patient deep breathing, movement and patient body habitus. The bilateral internal carotid arteries had <50% hemodynamically insignificant stenosis (approximately 29% by 2-D measurement on the right, approximately 23% by 2-D measurement on the left) with heterogeneous plaque. The vertebral artery flow was antegrade where visualized. The subclavian arteries were patent with normal flow bilaterally where visualized. Signature Velocities are measured in cm/s ; Diameters are measured in cm Carotid Right Measurements + +----+----+-----+ +---- + + !Location !PSV !EDV !Angle!%Stenosis 2D!%Stenosis Doppler!Tortuosity ! + +----+----+-----+ +---- + + !Prox CCA !67.4!18.8!60 !! ! ! + +----+----+-----+ +---- + + !Dist CCA !82.1!17!60 !! ! ! + +----+----+-----+ +---- + + !Prox ICA !70.3!18.9!60 !29% !<50% ! ! + +----+----+-----+ +---- + + !Dist ICA !66.8!22.3!60 !! ! ! + +----+----+-----+ +---- + + !Prox ECA !137 !22.8!60 !! ! ! + +----+----+-----+ +---- + + !Vertebral!40!14.1!60 !! ! ! + +----+----+-----+ +---- + + !Prox Subclavian!80.1!!60 !! ! ! + +----+----+-----+ +---- + + - There is antegrade vertebral flow noted on the right side. - Additional Measurements:ICAPSV/CCAPSV 0.86.ICAEDV/CCAEDV 1.19. Carotid Left Measurements + +----+----+-----+ +---- + + !Location !PSV !EDV !Angle!%Stenosis 2D!%Stenosis Doppler!Tortuosity ! + +----+----+-----+ +---- + + !Prox CCA !96.7!21!60 !! ! ! + +----+----+-----+ +---- + + !Dist CCA !60.5!15.7!60 !! ! ! + +----+----+-----+ +---- + + !Prox ICA !27.8!8.25!60 !23% !<50% ! ! + +----+----+-----+ +---- + + !Dist ICA !53.8!20.4!60 !! ! ! + +----+----+-----+ +---- + + !Prox ECA !52.6!11.6!60 !! ! ! + +----+----+-----+ +---- + + !Vertebral!22.3!6.72!60 !! ! ! + +----+----+-----+ +---- + + !Prox Subclavian!138 !!60 !! ! ! + +----+----+-----+ +---- + + - There is antegrade vertebral flow noted on the left side. - Additional Measurements:ICAPSV/CCAPSV 0.89.ICAEDV/CCAEDV 0.97. Narrative Performed At LAB - Carotid Duplex Study [facility] Demographics Patient Name DAKOTAH BOLAÑOS JR.Date of Study 05/19/2018 [id number] Age 62 Visit Number [id number] GenderMale Accession Number [id number] Date of [address] [facility] PRoom Number [id number] Alex SonographerChristoph June Physician Procedure Type of Study: Cerebral: Carotid, CAROTID DOPPLER, BILATERAL. Indications for Study:Cerebrovascular accident . Patient Status:Routine. Study Location:Portable. Technical Quality:Technically Difficult. Risk Factors History of Disease + +----+ + !Diagnosis!Date!Comments ! + +----+ + !History/Risk Factors:!!Obesity, HTN, CAD, HLD, DM, Bipolar, Seizures! + +----+ + Procedure Note Interface, External Ris In - 05/19/2018 8:03 AM CDT [facility] - Carotid Duplex Study Demographics Patient Name DAKOTAH BOLAÑOS JR. Date of Study 05/19/2018 Age 62 Visit Number [id number] Gender Male Accession Number [id number] Date of 1955 Referring VITA Burns Room Number 7511 Physician MECHE Manager Programming Christoph Mera Interpreting Keisha June Physician Procedure Type of Study: Cerebral: Carotid, CAROTID DOPPLER, BILATERAL. Indications for Study:Cerebrovascular accident . Patient Status:Routine. Study Location:Portable. Technical Quality:Technically Difficult. Risk Factors History of Disease + +----+ + !Diagnosis !Date!Comments ! + +----+ + !History/Risk Factors:! !Obesity, HTN, CAD, HLD, DM, Bipolar, Seizures ! + +----+ + Impressions Right Impression 1. There is <50% diameter reduction (approximately 29% by 2-D measurement) in the internal carotid artery with a peak velocity of 70.3/18.9 cm/sec and heterogeneous plaque. 2. There is non-occluding plaque in the external carotid artery. 3. There is non-occluding plaque in the common carotid artery. 4. The vertebral artery flow is antegrade . 5. The subclavian artery is within normal limits where visualized. Left Impression 1. There is <50% diameter reduction (approximately 23% by 2-D measurement) in the internal carotid artery with a peak velocity of 27.8/8.25 cm/sec and heterogeneous plaque. 2. There is non-occluding plaque in the external carotid artery. 3. There is non-occluding plaque in the common carotid artery. 4. The vertebral artery flow is antegrade . 5. The subclavian artery is within normal limits where visualized. Conclusions Summary Carotid duplex scanning and color flow imaging were performed bilaterally. The exam was technically difficult and the arteries were not well visualized due to patient deep breathing, movement and patient body habitus. The bilateral internal carotid arteries had <50% hemodynamically insignificant stenosis (approximately 29% by 2-D measurement on the right, approximately 23% by 2-D measurement on the left) with heterogeneous plaque. The vertebral artery flow was antegrade where visualized. The subclavian arteries were patent with normal flow bilaterally where visualized. Signature Velocities are measured in cm/s ; Diameters are measured in cm Carotid Right Measurements + +----+----+-----+ + + + !Location !PSV !EDV !Angle!%Stenosis 2D!%Stenosis Doppler!Tortuosity ! + +----+----+-----+ + + + !Prox CCA !67.4!18.8!60 ! ! ! ! + +----+----+-----+ + + + !Dist CCA !82.1!17 !60 ! ! ! ! + +----+----+-----+ + + + !Prox ICA !70.3!18.9!60 !29% !<50% ! ! + +----+----+-----+ + + + !Dist ICA !66.8!22.3!60 ! ! ! ! + +----+----+-----+ + + + !Prox ECA !137 !22.8!60 ! ! ! ! + +----+----+-----+ + + + !Vertebral !40 !14.1!60 ! ! ! ! + +----+----+-----+ + + + !Prox Subclavian!80.1! !60 ! ! ! ! + +----+----+-----+ + + + - There is antegrade vertebral flow noted on the right side. - Additional Measurements:ICAPSV/CCAPSV 0.86.ICAEDV/CCAEDV 1.19. Carotid Left Measurements + +----+----+-----+ + + + !Location !PSV !EDV !Angle!%Stenosis 2D!%Stenosis Doppler!Tortuosity ! + +----+----+-----+ + + + !Prox CCA !96.7!21 !60 ! ! ! ! + +----+----+-----+ + + + !Dist CCA !60.5!15.7!60 ! ! ! ! + +----+----+-----+ + + + !Prox ICA !27.8!8.25!60 !23% !<50% ! ! + +----+----+-----+ + + + !Dist ICA !53.8!20.4!60 ! ! ! ! + +----+----+-----+ + + + !Prox ECA !52.6!11.6!60 ! ! ! ! + +----+----+-----+ + + + !Vertebral !22.3!6.72!60 ! ! ! ! + +----+----+-----+ + + + !Prox Subclavian!138 ! !60 ! ! ! ! + +----+----+-----+ + + + - There is antegrade vertebral flow noted on the left side. - Additional Measurements:ICAPSV/CCAPSV 0.89.ICAEDV/CCAEDV 0.97. Performing Organization Address [facility] Hospitalcode Phone Number [facility] [employer] [facility]ART[facility] MKCKESSON CPACS Calcium, Ionized (05/18/2018 6:56 PM CDT) Calcium, Ion 1.09 (L) 1.12 - 1.27 mmol/L [facility] pH, Blood 7.39 [facility] Specimen Blood - Arm, Right Performing Organization Address [facility]/Zipcode Phone Number [address] [address] CENTER RPR (05/18/2018 6:49 PM CDT) RPR Nonreactive Nonreactive [facility] Specimen Blood - Arm, Right Performing Organization Address [facility]/[employer] Phone Number [address] [address] CENTER Hemoglobin A1c (05/18/2018 6:41 PM CDT) Hemoglobin A1C 5.8 4.3 - 6.1 % [facility] Specimen Blood - Arm, Right Performing Organization Address City/State/Zipcode Phone Number AB [facility] [address] [place] [address] [phone] CENTER MR brain without IV contrast (05/18/2018 4:26 PM CDT) Narrative Performed At FINAL REPORT [facility] MRI Brain without contrast Clinical History: Stroke Technique: MRI of the brain utilizing axial T2, FLAIR, GRE, DWI; sagittal and coronal T1-weighted images. Comparisons: CT 05/18/2018 Findings: As noted on the head CT, there is acute infarction of the right frontal lobe with involvement of the insula and operculum. There is no evidence for hemorrhage. A chronic encephalomalacic left temporoparietal infarct is again seen. Chronic left anterior frontal encephalomalacia is again seen. There is a punctate chronic right cerebellar infarct. There is periventricular and subcortical white matter T2 hyperintensity, which is nonspecific but compatible with chronic microvascular ischemic change. There is generalized parenchymal volume loss without hydrocephalus, midline shift, or apparent mass effect. There are no extra-axial fluid collections. The craniocervical junction is preserved. IMPRESSION: Acute right frontal opercular and insular infarct without hemorrhage. Chronic left temporoparietal infarct. Chronic left anterior frontal encephalomalacia. Punctate chronic right cerebellar infarct. Signed: Keith Montiel MD Report Verified Date/Time:05/18/2018 16:21:49 Reading Location: [address] Neuro Reading Room Procedure Note Interface, External Ris In - 05/18/2018 4:27 PM CDT FINAL REPORT MRI Brain without contrast Clinical History: Stroke Technique: MRI of the brain utilizing axial T2, FLAIR, GRE, DWI; sagittal and coronal T1-weighted images. Comparisons: CT 05/18/2018 Findings: As noted on the head CT, there is acute infarction of the right frontal lobe with involvement of the insula and operculum. There is no evidence for hemorrhage. A chronic encephalomalacic left temporoparietal infarct is again seen. Chronic left anterior frontal encephalomalacia is again seen. There is a punctate chronic right cerebellar infarct. There is periventricular and subcortical white matter T2 hyperintensity, which is nonspecific but compatible with chronic microvascular ischemic change. There is generalized parenchymal volume loss without hydrocephalus, midline shift, or apparent mass effect. There are no extra-axial fluid collections. The craniocervical junction is preserved. IMPRESSION: Acute right frontal opercular and insular infarct without hemorrhage. Chronic left temporoparietal infarct. Chronic left anterior frontal encephalomalacia. Punctate chronic right cerebellar infarct. Signed: Keith Montiel MD Report Verified Date/Time: 05/18/2018 16:21:49 Reading Location: [address] Neuro Reading Room Performing Organization Address City/State/Zipcode Phone Number [facility] MRA neck without IV contrast (05/18/2018 4:26 PM CDT) Narrative Performed At FINAL REPORT [facility] MRA Head CLINICAL HISTORY: Stroke TECHNIQUE: MRA of the head utilizing 3-D vkww-wm-nrkifx technique, with 3-D reconstructions. COMPARISON: CTA 05/18/2018 FINDINGS: As on the CTA, there is loss of a few right middle cerebral artery anterior division branch vessels compatible with the distribution of acute infarction. Loss of the left middle cerebral artery posterior division branch vessels is again seen compatible the distribution of chronic infarction. There is no other evidence for a [place] proximal branch vessel occlusion. A right posterior communicating artery is again seen. The left vertebral artery essentially terminates in the posterior inferior cerebellar artery. IMPRESSION: Loss of a few right MCA anterior division M2 distal branch vessels again noted. Loss of the left MCA posterior division branch vessels again noted. MRA Neck CLINICAL HISTORY: Stroke TECHNIQUE: MRA of the neck utilizing 2-D and 3-D hkjf-ea-fbrosf technique, with 3-D reconstructions. COMPARISON: CTA 05/18/2018 FINDINGS: There is mild non-hemodynamically significant atherosclerotic disease of the bilateral carotid bifurcations by NASCET criteria. There is antegrade flow in the vertebral arteries in the neck. IMPRESSION: No evidence of hemodynamically significant stenosis in the cervical carotid or vertebral arteries by NASCET criteria. Signed: Keith Montiel MD Report Verified Date/Time:05/18/2018 16:28:01 Reading Location: [address] Neuro Reading Room Procedure Note Interface, External Ris In - 05/18/2018 4:30 PM CDT FINAL REPORT MRA Head CLINICAL HISTORY: Stroke TECHNIQUE: MRA of the head utilizing 3-D wdxs-hp-sqfkce technique, with 3-D reconstructions. COMPARISON: CTA 05/18/2018 FINDINGS: As on the CTA, there is loss of a few right middle cerebral artery anterior division branch vessels compatible with the distribution of acute infarction. Loss of the left middle cerebral artery posterior division branch vessels is again seen compatible the distribution of chronic infarction. There is no other evidence for a [place] proximal branch vessel occlusion. A right posterior communicating artery is again seen. The left vertebral artery essentially terminates in the posterior inferior cerebellar artery. IMPRESSION: Loss of a few right MCA anterior division M2 distal branch vessels again noted. Loss of the left MCA posterior division branch vessels again noted. MRA Neck CLINICAL HISTORY: Stroke TECHNIQUE: MRA of the neck utilizing 2-D and 3-D iqsl-bh-oireks technique, with 3-D reconstructions. COMPARISON: CTA 05/18/2018 FINDINGS: There is mild non-hemodynamically significant atherosclerotic disease of the bilateral carotid bifurcations by NASCET criteria. There is antegrade flow in the vertebral arteries in the neck. IMPRESSION: No evidence of hemodynamically significant stenosis in the cervical carotid or vertebral arteries by NASCET criteria. Signed: Keith Montiel MD Report Verified Date/Time: 05/18/2018 16:28:01 Reading Location: [address] Neuro Reading Room Performing Organization Address City/State/Zipcode Phone Number [facility] MRA head without IV contrast (05/18/2018 4:26 PM CDT) Narrative Performed At FINAL REPORT [facility] MRA Head CLINICAL HISTORY: Stroke TECHNIQUE: MRA of the head utilizing 3-D ttjv-en-zckwlh technique, with 3-D reconstructions. COMPARISON: CTA 05/18/2018 FINDINGS: As on the CTA, there is loss of a few right middle cerebral artery anterior division branch vessels compatible with the distribution of acute infarction. Loss of the left middle cerebral artery posterior division branch vessels is again seen compatible the distribution of chronic infarction. There is no other evidence for a [place] proximal branch vessel occlusion. A right posterior communicating artery is again seen. The left vertebral artery essentially terminates in the posterior inferior cerebellar artery. IMPRESSION: Loss of a few right MCA anterior division M2 distal branch vessels again noted. Loss of the left MCA posterior division branch vessels again noted. MRA Neck CLINICAL HISTORY: Stroke TECHNIQUE: MRA of the neck utilizing 2-D and 3-D urni-zp-riabnc technique, with 3-D reconstructions. COMPARISON: CTA 05/18/2018 FINDINGS: There is mild non-hemodynamically significant atherosclerotic disease of the bilateral carotid bifurcations by NASCET criteria. There is antegrade flow in the vertebral arteries in the neck. IMPRESSION: No evidence of hemodynamically significant stenosis in the cervical carotid or vertebral arteries by NASCET criteria. Signed: Keith Montiel MD Report Verified Date/Time:05/18/2018 16:28:01 Reading Location: [address] Neuro Reading Room Procedure Note Interface, External Ris In - 05/18/2018 4:30 PM CDT FINAL REPORT MRA Head CLINICAL HISTORY: Stroke TECHNIQUE: MRA of the head utilizing 3-D vngw-gc-bxkrgp technique, with 3-D reconstructions. COMPARISON: CTA 05/18/2018 FINDINGS: As on the CTA, there is loss of a few right middle cerebral artery anterior division branch vessels compatible with the distribution of acute infarction. Loss of the left middle cerebral artery posterior division branch vessels is again seen compatible the distribution of chronic infarction. There is no other evidence for a [place] proximal branch vessel occlusion. A right posterior communicating artery is again seen. The left vertebral artery essentially terminates in the posterior inferior cerebellar artery. IMPRESSION: Loss of a few right MCA anterior division M2 distal branch vessels again noted. Loss of the left MCA posterior division branch vessels again noted. MRA Neck CLINICAL HISTORY: Stroke TECHNIQUE: MRA of the neck utilizing 2-D and 3-D unct-ea-zlzthu technique, with 3-D reconstructions. COMPARISON: CTA 05/18/2018 FINDINGS: There is mild non-hemodynamically significant atherosclerotic disease of the bilateral carotid bifurcations by NASCET criteria. There is antegrade flow in the vertebral arteries in the neck. IMPRESSION: No evidence of hemodynamically significant stenosis in the cervical carotid or vertebral arteries by NASCET criteria. Signed: Keith Montiel MD Report Verified Date/Time: 05/18/2018 16:28:01 Reading Location: [facility] [id number] Neuro Reading Room Performing Organization Address City/State/Zipcode Phone Number [facility] CTA carotid (05/18/2018 1:12 PM CDT) Narrative Performed At FINAL REPORT [facility]SEPH CLINICAL HISTORY: Cerebrovascular malformations, high flow, evaluation Symptoms onset less than 6 hours and NIHSS 6 or greater TECHNIQUE: Initially, noncontrast head CT images were performed. Contiguous contrast-enhanced axial images through the neck followed by axial images through the head with coronal and sagittal reformations to assess the arterial circulation. 3-D reconstructions were performed using a volume rendered technique separately on a workstation. This exam was performed according to the departmental dose optimization program which includes automated exposure control, adjustment of the mA and/or kV according to the patient size, and/or use of an iterative reconstruction technique. COMPARISON: Noncontrast head CT 05/18/2018 FINDINGS: Acute infarct of the right frontal lobe is again seen without hemorrhagic transformation. Chronic left frontal and temporoparietal encephalomalacia is again seen. A small chronic right cerebellar infarct is again seen. There is loss of a few right middle cerebral artery anterior division distal branch vessels, compatible with the distribution of acute infarction. There is moderate atherosclerotic disease of the right MCA M1 segment. There is loss of the left middle cerebral artery posterior division branch vessels, compatible with the chronic infarction. There is a right posterior communicating artery. The major intradural venous sinuses are patent. There is a 33% stenosis of the proximal right internal carotid artery by NASCET criteria. There is no focal significant stenosis of the proximal left internal artery. There is moderate stenosis at the origin of the right vertebral artery. There is a severe stenosis of the right intradural vertebral artery. There is severe stenosis of the origin of the nondominant left vertebral artery which essentially terminates in the posterior inferior cerebellar artery. There are dorsal spondylitic changes in the cervical spine. There are scattered subcentimeter lymph nodes in the neck. The visualized lung apices are clear. IMPRESSION: Acute right MCA distribution infarct without hemorrhage. Right MCA M1 atherosclerotic disease with loss of a few superior division M2 distal branch vessels. 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 Findings were discussed with the neuro interventional service at approximately 1:40 PM Signed: Keith Montiel MD Report Verified Date/Time:05/18/2018 13:51:11 Reading Location: [facility] [id number] Neuro Reading Room Procedure Note Interface, External Ris In - 05/18/2018 1:53 PM CDT FINAL REPORT CLINICAL HISTORY: Cerebrovascular malformations, high flow, evaluation Symptoms onset less than 6 hours and NIHSS 6 or greater TECHNIQUE: Initially, noncontrast head CT images were performed. Contiguous contrast-enhanced axial images through the neck followed by axial images through the head with coronal and sagittal reformations to assess the arterial circulation. 3-D reconstructions were performed using a volume rendered technique separately on a workstation. This exam was performed according to the departmental dose optimization program which includes automated exposure control, adjustment of the mA and/or kV according to the patient size, and/or use of an iterative reconstruction technique. COMPARISON: Noncontrast head CT 05/18/2018 FINDINGS: Acute infarct of the right frontal lobe is again seen without hemorrhagic transformation. Chronic left frontal and temporoparietal encephalomalacia is again seen. A small chronic right cerebellar infarct is again seen. There is loss of a few right middle cerebral artery anterior division distal branch vessels, compatible with the distribution of acute infarction. There is moderate atherosclerotic disease of the right MCA M1 segment. There is loss of the left middle cerebral artery posterior division branch vessels, compatible with the chronic infarction. There is a right posterior communicating artery. The major intradural venous sinuses are patent. There is a 33% stenosis of the proximal right internal carotid artery by NASCET criteria. There is no focal significant stenosis of the proximal left internal artery. There is moderate stenosis at the origin of the right vertebral artery. There is a severe stenosis of the right intradural vertebral artery. There is severe stenosis of the origin of the nondominant left vertebral artery which essentially terminates in the posterior inferior cerebellar artery. There are dorsal spondylitic changes in the cervical spine. There are scattered subcentimeter lymph nodes in the neck. The visualized lung apices are clear. IMPRESSION: Acute right MCA distribution infarct without hemorrhage. Right MCA M1 atherosclerotic disease with loss of a few superior division M2 distal branch vessels. 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 Findings were discussed with the neuro interventional service at approximately 1:40 PM Signed: Keith Montiel MD Report Verified Date/Time: 05/18/2018 13:51:11 Reading Location: [facility] [id number] Neuro Reading Room Performing Organization Address City/State/Zipcode Phone Number [employer] RIS CTA brain (05/18/2018 1:12 PM CDT) Narrative Performed At FINAL REPORT [facility]IS CLINICAL HISTORY: Cerebrovascular malformations, high flow, evaluation Symptoms onset less than 6 hours and NIHSS 6 or greater TECHNIQUE: Initially, noncontrast head CT images were performed. Contiguous contrast-enhanced axial images through the neck followed by axial images through the head with coronal and sagittal reformations to assess the arterial circulation. 3-D reconstructions were performed using a volume rendered technique separately on a workstation. This exam was performed according to the departmental dose optimization program which includes automated exposure control, adjustment of the mA and/or kV according to the patient size, and/or use of an iterative reconstruction technique. COMPARISON: Noncontrast head CT 05/18/2018 FINDINGS: Acute infarct of the right frontal lobe is again seen without hemorrhagic transformation. Chronic left frontal and temporoparietal encephalomalacia is again seen. A small chronic right cerebellar infarct is again seen. There is loss of a few right middle cerebral artery anterior division distal branch vessels, compatible with the distribution of acute infarction. There is moderate atherosclerotic disease of the right MCA M1 segment. There is loss of the left middle cerebral artery posterior division branch vessels, compatible with the chronic infarction. There is a right posterior communicating artery. The major intradural venous sinuses are patent. There is a 33% stenosis of the proximal right internal carotid artery by NASCET criteria. There is no focal significant stenosis of the proximal left internal artery. There is moderate stenosis at the origin of the right vertebral artery. There is a severe stenosis of the right intradural vertebral artery. There is severe stenosis of the origin of the nondominant left vertebral artery which essentially terminates in the posterior inferior cerebellar artery. There are dorsal spondylitic changes in the cervical spine. There are scattered subcentimeter lymph nodes in the neck. The visualized lung apices are clear. IMPRESSION: Acute right MCA distribution infarct without hemorrhage. Right MCA M1 atherosclerotic disease with loss of a few superior division M2 distal branch vessels. 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 Findings were discussed with the neuro interventional service at approximately 1:40 PM Signed: Keith Montiel MD Report Verified Date/Time:05/18/2018 13:51:11 Reading Location: [facility] [id number] Neuro Reading Room Procedure Note Interface, External Ris In - 05/18/2018 1:53 PM CDT FINAL REPORT CLINICAL HISTORY: Cerebrovascular malformations, high flow, evaluation Symptoms onset less than 6 hours and NIHSS 6 or greater TECHNIQUE: Initially, noncontrast head CT images were performed. Contiguous contrast-enhanced axial images through the neck followed by axial images through the head with coronal and sagittal reformations to assess the arterial circulation. 3-D reconstructions were performed using a volume rendered technique separately on a workstation. This exam was performed according to the departmental dose optimization program which includes automated exposure control, adjustment of the mA and/or kV according to the patient size, and/or use of an iterative reconstruction technique. COMPARISON: Noncontrast head CT 05/18/2018 FINDINGS: Acute infarct of the right frontal lobe is again seen without hemorrhagic transformation. Chronic left frontal and temporoparietal encephalomalacia is again seen. A small chronic right cerebellar infarct is again seen. There is loss of a few right middle cerebral artery anterior division distal branch vessels, compatible with the distribution of acute infarction. There is moderate atherosclerotic disease of the right MCA M1 segment. There is loss of the left middle cerebral artery posterior division branch vessels, compatible with the chronic infarction. There is a right posterior communicating artery. The major intradural venous sinuses are patent. There is a 33% stenosis of the proximal right internal carotid artery by NASCET criteria. There is no focal significant stenosis of the proximal left internal artery. There is moderate stenosis at the origin of the right vertebral artery. There is a severe stenosis of the right intradural vertebral artery. There is severe stenosis of the origin of the nondominant left vertebral artery which essentially terminates in the posterior inferior cerebellar artery. There are dorsal spondylitic changes in the cervical spine. There are scattered subcentimeter lymph nodes in the neck. The visualized lung apices are clear. IMPRESSION: Acute right MCA distribution infarct without hemorrhage. Right MCA M1 atherosclerotic disease with loss of a few superior division M2 distal branch vessels. 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 Findings were discussed with the neuro interventional service at approximately 1:40 PM Signed: Keith Montiel MD Report Verified Date/Time: 05/18/2018 13:51:11 Reading Location: [facility] [id number] Neuro Reading Room Performing Organization Address City/[facility] Phone Number GE RIS Magnesium (05/18/2018 12:27 PM CDT) Magnesium 2.1 1.6 - 2.6 mg/dL [facility] Specimen Blood - Arm, Right Performing Organization Address [facility] Hospitalcoar Phone Number [address] [address] CENTER Creatine Kinase (CK), Total and MB (not available at [facility] [place]) (2017 12:27 PM CDT) Total CK 162 29 - 200 U/L [facility] CK-MB 2.3 0.0 - 6.6 ng/mL [facility] MB Relative Index 1.4 % [facility] Specimen Blood - Arm, Right Narrative Performed At CK-MB Reference Range: [facility] <6.7Normal 6.7-10.0Borderline >10.0 Abnormal Performing Organization Address [facility] Phone Number [address] brain without IV contrast (05/18/2018 11:37 AM CDT) Narrative Performed At FINAL REPORT GE RIS CT Head without contrast CLINICAL HISTORY: Confusion/delirium, altered LOC, unexplained altered mental status TECHNIQUE: Contiguous axial images through the head without contrast. This exam was performed according to the departmental dose optimization program which includes automated exposure control, adjustment of the mA and/or kV according to the patient size, and/or use of an iterative reconstruction technique. COMPARISON: None FINDINGS: There is hypodensity in the right frontal operculum and anterior insula suspicious for an acute infarct. There is no hemorrhage. There is a chronic right orbital roof fracture deformity involving the outer table of the right frontal sinus. There is chronic left anterior inferior frontal lobe encephalomalacia. There is chronic left temporoparietal encephalomalacia. There is a small chronic right cerebellar infarct. There is generalized parenchymal volume loss without hydrocephalus or midline shift. There are atherosclerotic calcifications of the intracranial circulation. IMPRESSION: Acute right frontal opercular and insular infarct. Chronic right facial fracture deformities. Chronic left anterior frontal and temporal parietal encephalomalacia. Small chronic right cerebellar infarct. The findings were discussed with Dr. KAIA COLON at the time of dictation. Signed: Keith Montiel MD Report Verified Date/Time:05/18/2018 11:46:09 Reading Location: [address] Neuro Reading Room Procedure Note Interface, External Ris In - 05/18/2018 11:48 AM CDT FINAL REPORT CT Head without contrast CLINICAL HISTORY: Confusion/delirium, altered LOC, unexplained altered mental status TECHNIQUE: Contiguous axial images through the head without contrast. This exam was performed according to the departmental dose optimization program which includes automated exposure control, adjustment of the mA and/or kV according to the patient size, and/or use of an iterative reconstruction technique. COMPARISON: None FINDINGS: There is hypodensity in the right frontal operculum and anterior insula suspicious for an acute infarct. There is no hemorrhage. There is a chronic right orbital roof fracture deformity involving the outer table of the right frontal sinus. There is chronic left anterior inferior frontal lobe encephalomalacia. There is chronic left temporoparietal encephalomalacia. There is a small chronic right cerebellar infarct. There is generalized parenchymal volume loss without hydrocephalus or midline shift. There are atherosclerotic calcifications of the intracranial circulation. IMPRESSION: Acute right frontal opercular and insular infarct. Chronic right facial fracture deformities. Chronic left anterior frontal and temporal parietal encephalomalacia. Small chronic right cerebellar infarct. The findings were discussed with Dr. KAIA COLON at the time of dictation. Signed: Keith Montiel MD Report Verified Date/Time: 05/18/2018 11:46:09 Reading Location: [address] Neuro Reading Room Performing Organization Address City/State/Zipcode Phone Number [facility] ECG/EKG Interpretation (05/18/2018 11:30 AM CDT) Narrative Performed At Kaia Colon MD 05/18/2018 10:39 PM ECG/EKG Interpretation Date/Time: 05/18/2018 1:47 PM Performed by: Kaia Colon MD Authorized by: Kaia Colon MD The ECG was interpreted by ED physician. This ECG was not compared with previous ECG(s).The ECG is interpreted as sinus rhythm. Rate is normal rate. Conduction: conduction normal. ST segments abnormal. T waves normal. Dickens is normal. Other findings: no other findings. Clinical Impression: non-specific ECG and abnormal ECG CRITICAL CARE (05/18/2018 11:30 AM CDT) Narrative Performed At Kaia Colon MD 05/18/2018 10:39 PM Critical Care Performed by: Kaia Colon MD Authorized by: Kaia Colon MD Total critical care time: 45 minutes Critical care time was exclusive of separately billable procedures and treating other patients. Critical care was necessary to treat or prevent imminent or life-threatening deterioration of the following conditions: [employer] failure or compromise. Critical care was time spent personally by me on the following activities: blood draw for specimens, discussions with consultants, evaluation of patient's response to treatment, obtaining history from patient or surrogate, pulse oximetry, ordering and review of laboratory studies, review of old charts, development of treatment plan with patient or surrogate, discussions with primary provider, examination of patient, ordering and performing treatments and interventions, ordering and review of radiographic studies and re-evaluation of patient's condition. PT/PTT (05/18/2018 11:18 AM CDT) Protime 13.7 11.7 - 14.7 seconds [facility] INR 1.0 <=5.9 [facility] PTT 26.3 22.5 - 36.0 seconds [facility] Specimen Blood - Arm, Right Narrative Performed At RECOMMENDED COUMADIN/WARFARIN INR THERAPY [facility] RANGES STANDARD DOSE: 2.0 - 3.0 Includes: PROPHYLAXIS for venous thrombosis, systemic embolization; TREATMENT for venous thrombosis and/or pulmonary embolus. HIGH RISK: Target INR is 2.5-3.5 for patients with mechanical heart valves. Performing Organization Address City/State/Zipcode Phone Number [facility] [address] [place] [address] CENTER after 07/21/2017 Insurance Payer Benefit Plan / Group Subscriber ID Type Phone Address MEDICARE MEDICARE A B xxxxxxxxxx Medicare MEDICARE MEDICARE A B xxxxxxxxxxx Medicare (Home) [address] [place] [phone] Advance Directives For more information, please contact:[facility] [place] [id number] [place], [place] [phone] Code Status Date Activated Date Inactivated Comments Full Code 05/18/2018 5:29 PM This code status was determined by: Patient Full Code 03/03/2016 7:13 PM 03/11/2016 8:26 PM This code status was determined by: Patient Full Code 02/27/2016 8:01 PM 03/02/2016 6:03 PM This code status was determined by: Patient Full Code 12/24/2014 2:47 PM 12/24/2014 4:01 PM This code status was determined by: Patient Full Code 12/22/2014 5:08 PM 12/24/2014 2:47 PM This code status was determined by: Patient
--- OUTSIDE RECORDS SUMMARY | 2018-07-22 20:35 | XMS REPORT | Continuity of Care Document ---
:1955 Author Organization Interface Problems Problem Status Onset Classification Date Comments Source Date Reported STROKE Active 016 [facility] CVA Active 016 [facility] SUSPECTED CVA (R Active SIDED WEAKNESS), 016 [facility] NEW ON ISCHEMIC CVA Active 016 [facility] ISCHEMIC Active [facility] STROKE/SUBACUTE 015 [facility] Anemia<sup>1</sup> Resolved Problem 11/21/2015 TRANSFER [facility]15 [facility] [place] Cerebrovascular Resolved Problem 11/21/2015 D/C 12/06 [facility] accident (<span 015 Medical ID="[id number]">C [place], onfirmed</span>)<s [facility] up>2</sup> Dyslipidemia Active Problem 11/21/2015 [facility] Hypertension Resolved Problem 11/21/2015 [facility] Loss of vision of Resolved Problem 11/21/2015 [facility] right eye [facility] [place] (<span Resolved Problem 11/21/2015 [facility] ID="[id number]"> Medical onfirmed</span>) [facility] ISCHEMIC OPTIC Active [facility] NEUROPTHY [facility] CEREBRAL Active INFARCTION, [facility] UNSPECIFIED OTHER Active CEREBROVASCULAR [facility] DISEASE Medications Medication Details Route Status Patient Ordering Order Source Instructions Provider Date Lovenox 40 mg, 0.4 mL, No Longer Route: SUB-Q, Active 2015 [facility] Drug form: INJ, [id number], Dosing Weight 80.5, kg, Start date: 11/19/15 9:00:00 CDT, Duration: 30 day, Stop date: 12/18/15 9:00:00 CDTNotes: (Same as: Lovenox) Ritalin 5 mg, 1 tab, No Longer Route: PO, Active 2015 [facility] Drug form: TAB, BID, Dosing Weight 87.443, kg, Start date: 11/18/15 7:00:00 CDT, Duration: 30 day, Stop date: 12/17/15 12:00:00 CDTNotes: (Same as:Ritalin) gabapentin 100 mg, 1 cap, No Longer Route: PO, Active 2015 [facility] Drug form: CAP, Q8H, Dosing Weight 87.443, kg, Start date: 11/18/15 0:00:00 CDT, Duration: 30 day, Stop date: 12/17/15 16:00:00 CDTNotes: (Same as: Neurontin) gabapentin 100 MG 100 mg=1 cap, Active Oral Capsule PO, Q8H-06, # 2015 [facility] 90 cap, 0 Refill(s) docusate sodium 100 mg=1 cap, Active 100 mg oral PO, BID, # 60 2015 [facility] capsule cap, 0 Refill(s) Phenytoin sodium 300 mg=3 cap, Active 100 MG Extended PO, QPM, # 90 2015 [facility] Release Capsule cap, 0 [Dilantin] Refill(s) lisinopril 20 mg 20 mg=1 tab, Active oral tablet PO, Daily, # 2015 [facility] 30 tab, 0 Refill(s) amLODIPine 5 mg 5 mg=1 tab, Active oral tablet PO, Daily, # 2015 [facility] 30 tab, 0 Refill(s) Famotidine 20 MG 20 mg=1 tab, Active Oral Tablet PO, Q12H, # 60 2015 [facility] [Pepcid] tab, 0 Refill(s) clopidogrel 75 mg 75 mg=1 tab, Active oral tablet PO, Daily, # 2015 [facility] 30 tab, 0 Refill(s) atorvastatin 40 40 mg=1 tab, Active mg oral tablet PO, Bedtime, # 2015 [facility] 30 tab, 0 Refill(s) Aspirin 81 MG 81 mg=1 tab, Active Enteric Coated PO, Daily, # 2015 [facility] Tablet 30 tab, 0 Refill(s) carvedilol 25 mg 25 mg=1 tab, Active oral tablet PO, Q12H, # 60 2015 tab, 0 Refill(s) Amlodipine 5 mg, 1 tab, No Longer Route: PO, Active 2015 [facility] Drug form: TAB, Daily, Dosing Weight 87.443, kg, Priority: NOW, Start date: 11/17/15 9:20:00 CDT, Duration: 30 day, Stop date: 12/17/15 9:00:00 CDTNotes: (Same as: Norvasc) NS 0.45% IV 1,000 1,000 mL, No Longer mL Rate: 75 2015 [facility] ml/hr, Infuse over: 13.3 hr, Route: IV, Dosing Weight 87.443 kg, Total Volume: 1,000, Start date: 11/16/15 14:08:00 CDT, Duration: 30 day, Stop date: 12/16/15 14:07:00 CDT Ritalin 2.5 mg, 0.5 No Longer tab, Route: Active 2015 [facility] PO, Drug form: TAB, BID, Dosing Weight 87.443, kg, Start date: 11/16/15 7:00:00 CDT, Duration: 30 day, Stop date: 12/15/15 12:00:00 CDTNotes: (Same as:Ritalin) gabapentin 100 mg, Route: No Longer PO, Drug form: Active 2015 [facility] CAP, Q8H, Dosing Weight 87.443, kg, Start date: 11/16/15 0:00:00 CDT, Stop date: 11/18/15 16:00:00 CDT gabapentin 100 mg, 1 cap, No Longer Route: PO, Active 2015 [facility] Drug form: CAP, Q8H-06, Dosing Weight 87.443, kg, Start date: 11/15/15 22:00:00 CDT, Duration: 30 day, Stop date: 12/15/15 14:00:00 CDTNotes: (Same as: Neurontin) Hydralazine 10 mg, 1 tab, No Longer Route: PO, Active 2015 [facility] Drug form: TAB, Q6H, Dosing Weight 87.443, kg, PRN Hypertension, Start date: 11/15/15 17:01:00 CDT, Duration: 30 day, Stop date: 12/15/15 17:00:00 CDTNotes: (Same as: Apresoline) May interfere w/enteral feedings. Take With Food Sodium Chloride 1,000 mL, No Longer 0.154 MEQ/ML Rate: 100 Active 2015 [facility] Injectable ml/hr, Infuse Solution over: 10 hr, Route: IV, Dosing Weight 87.443 kg, Total Volume: 1,000, Start date: 11/14/15 9:42:00 CDT, Duration: 30 day, Stop date: 12/14/15 9:41:00 CDT Coreg 25 mg, 1 tab, No Longer Route: PO, Active 2015 [facility] Drug form: TAB, Q12H, Dosing Weight 92.813, kg, Start date: 11/13/15 21:00:00 CDT, Duration: 30 day, Stop date: 12/13/15 9:00:00 CDTNotes: Give with food. (Same As: Coreg) Coreg 12.5 mg, 1 No Longer tab, Route: Active 2015 [facility] PO, Drug form: TAB, Q12H, Dosing Weight 92.813, kg, Start date: 11/12/15 21:00:00 CDT, Duration: 30 day, Stop date: 12/12/15 9:00:00 CDTNotes: Give with food. (Same As: Coreg) Dilantin 300 mg, 3 cap, No Longer Route: PO, Active 2015 [facility] Drug form: ERCAP, QPM, Dosing Weight 92.813, kg, Start date: 11/12/15 17:00:00 CDT, Duration: 30 day, Stop date: 12/11/15 17:00:00 CDTNotes: (Same as: Dilantin) Do not open, crush, or chew. cloNIDine 0.1 mg 0.1 mg, 1 tab, Inactive oral tablet Route: PO, 2015 [facility] Drug form: TAB, ONCE, Start date: 11/12/15 15:00:00 CDT, Stop date: 11/12/15 15:00:00 CDTNotes: (Same As: Catapres) Clonidine 0.1 mg, 1 tab, No Longer Hydrochloride 0.1 Route: PO, Active 2015 [facility] MG Oral Tablet Drug form: TAB, TID, Dosing Weight 87.443, kg, PRN Elevated BP, SBP > 180 or DBP > 100, Start date: 11/12/15 14:46:00 CDT, Duration: 30 day, Stop date: 12/12/15 14:45:00 CDTNotes: (Same As: Catapres) Lovenox 40 mg, 0.4 mL, No Longer Route: SUB-Q, 2015 [facility] Drug form: INJ, [id number], Dosing Weight 80.5, kg, Start date: 11/12/15 9:00:00 CDT, Duration: 30 day, Stop date: 12/11/15 9:00:00 CDTNotes: (Same as: Lovenox) Docusate 100 mg, 1 cap, No Longer Route: PO, 2015 [facility] Drug form: CAP, BID, Dosing Weight 88.182, kg, Start date: 11/12/15 9:00:00 CDT, Duration: 30 day, Stop date: 12/11/15 17:00:00 CDTNotes: (Same as: Colace) (Do Not Crush) Plavix 75 mg, 1 tab, No Longer Route: PO, 2015 [facility] Drug form: TAB, Daily, Dosing Weight 92.813, kg, Start date: 11/12/15 9:00:00 CDT, Duration: 30 day, Stop date: 12/11/15 9:00:00 CDTNotes: (Same As: Plavix) aspirin 81 mg 81 mg, 1 tab, No Longer tablet, enteric Route: PO, 2015 [facility] coated Drug form: ECTAB, Daily, Dosing Weight 80.5, kg, Start date: 11/12/15 9:00:00 CDT, Duration: 30 day, Stop date: 12/11/15 9:00:00 CDTNotes: Do not crush or chew. (Same As: Ecotrin) Prinivil 20 mg, 1 tab, No Longer Route: PO, 2015 [facility] Drug form: TAB, Daily, Dosing Weight 92.813, kg, Start date: 11/12/15 9:00:00 CDT, Duration: 30 day, Stop date: 12/11/15 9:00:00 CDTNotes: (Same as: Prinivil, Zestril) Saline Flush 0.9% 10 ml, Route: No Longer IVP, Drug Active 2015 [facility] Form: INJ, Dosing Weight 88.182, kg, Q12H, Start date: 11/11/15 21:00:00 CDT, Duration: 30 day, Stop date: 12/11/15 9:00:00 CDTNotes: (Same as: BD Posiflush) Cipro 500 mg, 1 tab, No Longer Route: PO, Active 2015 [facility] Drug form: TAB, [id number], Dosing Weight 92.813, kg, Start date: 11/11/15 21:00:00 CDT, Duration: 7 day, Stop date: 11/18/15 9:00:00 CDTNotes: May interfere w/enteral feedings - Take 1 hr before or 2 hrs after antacids, dairy pdt & minerals. On empty stomach. Pepcid 20 mg, 1 tab, No Longer Route: PO, Active 2015 [facility] Drug form: TAB, Q12H, Dosing Weight 92.813, kg, Start date: 11/11/15 21:00:00 CDT, Duration: 30 day, Stop date: 12/11/15 9:00:00 CDTNotes: (Same as: Pepcid) Coreg 6.25 mg, 1 No Longer tab, Route: 2015 [facility] PO, Drug form: TAB, Q12H, Dosing Weight 92.813, kg, Start date: 11/11/15 21:00:00 CDT, Duration: 30 day, Stop date: 12/11/15 9:00:00 CDTNotes: Give with food. (Same As: Coreg) Lipitor 40 mg, 1 tab, No Longer Route: PO, Active 2015 [facility] Drug form: TAB, Bedtime, Dosing Weight 92.813, kg, Start date: 11/11/15 21:00:00 CDT, Duration: 30 day, Stop date: 12/10/15 21:00:00 CDTNotes: (Same as: Lipitor) Saline Flush 0.9% 10 ml, Route: No Longer IVP, Drug Active 2015 [facility] Form: INJ, Dosing Weight 88.182, kg, PRN, PRN Line Flush, Start date: 11/11/15 20:47:00 CDT, Duration: 30 day, Stop date: 12/11/15 20:46:00 CDTNotes: (Same as: BD Posiflush) Dulcolax Laxative 10 mg, 1 supp, No Longer Route: AK, Active 2015 [facility] Drug form: SUPP, Daily, Dosing Weight 80.5, kg, PRN Constipation, Start date: 11/11/15 19:59:00 CDT, Duration: 30 day, Stop date: 12/11/15 19:58:00 CDTNotes: (Same As: Dulcolax, Bisco-Lax) Tylenol 650 mg, 2 tab, No Longer Route: PO, Active 2015 [facility] Drug form: TAB, Q4H, Dosing Weight 80.5, kg, PRN For Temp > 100.4 F, Start date: 11/11/15 19:58:00 CDT, Duration: 30 day, Stop date: 12/11/15 19:57:00 CDTNotes: Do not exceed 4 gm/day. (Same as: Tylenol) Robitussin-DM 10 mL, Route: No Longer PO, Drug Form: Active 2015 [facility] SYRP, Dosing Weight 80.5, kg, Q4H, PRN Cough, Start date: 11/11/15 19:54:00 CDT, Duration: 30 day, Stop date: 12/11/15 19:53:00 CDTNotes: (dextromethorp krause-guaifenesi n 10-100mg/5ml 10 ml oral SOLN ud) (Same as: Robitussin DM) Phenytoin sodium 300 mg, 3 cap, Inactive 100 MG Extended Route: PO, 2015 [facility] Release Capsule Drug form: [Dilantin] ERCAP, QPM, Dosing Weight 92.813, kg, Start date: 11/11/15 17:00:00 CDT, Duration: 30 day, Stop date: 12/10/15 17:00:00 CDTNotes: (Same as: Dilantin) Do not open, crush, or chew. Aspirin 81 MG 81 mg=1 tab, Active Enteric Coated PO, Daily, 0 2015 [facility] Tablet Refill(s) simethicone 80 mg 80 mg=1 tab, Active oral tablet, PO, Q6H, PRN 2015 [facility] chewable Gas, 0 Refill(s) Phenytoin sodium 300 mg=3 cap, Active 100 MG Extended PO, QPM, 0 2015 [facility] Release Capsule Refill(s) [Dilantin] Famotidine 20 MG 20 mg=1 tab, Active Oral Tablet PO, Q12H, 0 2015 [facility] [Pepcid] Refill(s) Enoxaparin 40 mg=0.4 mL, Active SUB-Q, 2015 [facility] [id number], 0 Refill(s) bisacodyl 10 mg 10 mg=1 supp, Active rectal [place], Daily, PRN 2015 [facility] suppository Constipation, 0 Refill(s) benzonatate 100 100 mg=1 cap, Active mg oral capsule PO, Q8H, PRN 2015 [facility] Cough, 0 Refill(s) acetaminophen 325 650 mg=2 tab, Active mg oral tablet PO, Q4H, PRN 2015 [facility] For Temp > 100.4 F, 0 Refill(s) lisinopril 20 mg 20 mg=1 tab, Active oral tablet PO, Daily, 0 2015 [facility] Refill(s) clopidogrel 75 mg 75 mg=1 tab, Active oral tablet PO, Daily, 0 2015 [facility] Refill(s) carvedilol 6.25 6.25 mg=1 tab, Active mg oral tablet PO, Q12H, 0 2015 [facility] Refill(s) atorvastatin 40 40 mg=1 tab, Active mg oral tablet PO, Bedtime, 0 2015 [facility] Refill(s) Ciprofloxacin 500 mg, 1 tab, Inactive Route: PO, 2015 [facility] Drug form: TAB, [id number], Dosing Weight 92.813, kg, Start date: 11/11/15 12:00:00 CDT, Duration: 30 day, Stop date: 12/11/15 0:00:00 CDTNotes: May interfere w/enteral feedings - Take 1 hr before or 2 hrs after antacids, dairy pdt & minerals. On empty stomach. Lisinopril 20 mg, 1 tab, No Longer Route: PO, Active 2015 [facility] Drug form: TAB, Daily, Dosing Weight 92.813, kg, Start date: 11/10/15 9:30:00 CDT, Duration: 30 day, Stop date: 12/10/15 9:00:00 CDTNotes: (Same as: Prinivil, Zestril) Lipitor 40 mg, 1 tab, No Longer Route: PO, Active 2015 [facility] Drug form: TAB, Bedtime, Dosing Weight 92.813, kg, Start date: 11/09/15 21:00:00 CDT, Duration: 30 day, Stop date: 12/08/15 21:00:00 CDTNotes: (Same as: Lipitor) Zyprexa 5 mg, Route: Inactive IM, Drug form: 2015 [facility] INJ, ONCALL, Dosing Weight 92.813, kg, FOR MRI, Priority: NOW, Start date: 11/09/15 13:58:00 CDTNotes: (Same As: ZyPREXA IM). Reconstitute with 2.1 ml sterile water for injection; use within 1 hour after reconstitution . For IM use only; do not administer IV or SUB-Q. Famotidine 20 MG 20 mg, 1 tab, No Longer Oral Tablet Route: PO, Active 2015 [facility] [Pepcid] Drug form: TAB, Q12H, Dosing Weight 92.813, kg, Start date: 11/09/15 9:00:00 CDT, Duration: 30 day, Stop date: 12/08/15 21:00:00 CDTNotes: (Same as: Pepcid) Plavix 75 mg, 1 tab, No Longer Route: PO, Active 2015 [facility] Drug form: TAB, Daily, Dosing Weight 92.813, kg, Start date: 11/09/15 9:00:00 CDT, Duration: 30 day, Stop date: 12/08/15 9:00:00 CDTNotes: (Same As: Plavix) Coreg 6.25 mg, 1 No Longer tab, Route: Active 2015 [facility] PO, Drug form: TAB, Q12H, Dosing Weight 92.813, kg, Start date: 11/09/15 9:00:00 CDT, Duration: 30 day, Stop date: 12/08/15 21:00:00 CDTNotes: Give with food. (Same As: Coreg) Ativan 1 mg, 0.5 mL, Inactive Route: IVP, 2015 [facility] Drug form: INJ, ONCE, Dosing Weight 92.813, kg, PRN Agitation, Start date: 11/09/15 2:26:00 CDTNotes: (Same as: Ativan) Ciprofloxacin 400 mg, 200 No Longer mL, Route: Active 2015 [facility] IVPB, Drug form: INJ, [id number], Dosing Weight 92.813, kg, Start date: 11/08/15 13:00:00 CDT, Duration: 30 day, Stop date: 12/08/15 1:00:00 CDTNotes: Do not refrigerate Morphine 2 mg, 1 mL, Inactive Route: IVP2015 [facility] Drug form: INJ, ONCE, Dosing Weight 92.813, kg, Start date: 11/08/15 11:22:00 CDT, Stop date: 11/08/15 11:22:00 CDTNotes: (Same as:MORPhine Sulfate) Lorazepam 1 mg, 0.5 mL, Inactive Route: IV, 2015 [facility] Drug form: INJ, ONCE, Dosing Weight 92.813, kg, Priority: NOW, Start date: 11/08/15 10:29:00 CDT, Stop date: 11/08/15 10:29:00 CDTNotes: (Same as: Ativan) Saline Flush 0.9% 10 ml, Route: No Longer IVP, Drug Active 2015 [facility] Form: INJ, Dosing Weight 80.5, kg, Q12H, Start date: 11/08/15 9:00:00 CDT, Duration: 30 day, Stop date: 12/07/15 21:00:00 CDTNotes: (Same as: BD Posiflush) Aspirin 81 MG 81 mg, 1 tab, No Longer Enteric Coated Route: PO, Active 2015 [facility] Tablet Drug form: ECTAB, Daily, Dosing Weight 80.5, kg, Start date: 11/08/15 9:00:00 CDT, Duration: 30 day, Stop date: 12/07/15 9:00:00 CDTNotes: Do not crush or chew. (Same As: Ecotrin) Ativan 1 mg, 0.5 mL, Inactive Route: IV, 2015 [facility] Drug form: INJ, ONCE, Start date: 11/08/15 8:30:00 CDT, Stop date: 11/08/15 8:30:00 CDTNotes: (Same as: Ativan) Dilantin 100 mg, 2 mL, No Longer Route: IVP, Active 2015 [facility] Drug form: INJ, Q8H, Dosing Weight 80.5, kg, Start date: 11/08/15 8:00:00 CDT, Duration: 30 day, Stop date: 12/08/15 0:00:00 CDTNotes: (Same as: Dilantin) Do not infuse greater than 50 mg/min. MEDICATION WASTE Product Size: 100 mg Product Wasted: ___ mg Enoxaparin 40 mg, 0.4 mL, No Longer Route: SUB-Q, Active 2015 [facility] Drug form: INJ, [id number], Dosing Weight 80.5, kg, Start date: 11/08/15 1:00:00 CDT, Stop date: 12/07/15 1:00:00 CDTNotes: (Same as: Lovenox) 1/2 NS 1,000 mL 1,000 mL, No Longer Rate: 100 Active 2015 [facility] ml/hr, Infuse over: 10 hr, Route: IV, Dosing Weight 92.813 kg, Total Volume: 1,000, Start date: 11/08/15 0:55:00 CDT, Duration: 30 day, Stop date: 12/08/15 0:54:00 CDT Sodium Chloride 250 mL, Route: No Longer 0.9% IV IVPB, Start Active 2015 [facility] date: 11/08/15 0:08:00 CDT, Duration: 30 day, Stop date: 12/08/15 0:07:00 CDT, PRN Line Flush BD Normal Saline 10 mL, Route: No Longer Flush IVP, Drug Active 2015 [facility] Form: INJ, PRN, PRN Line Flush, Start date: 11/08/15 0:08:00 CDT, Duration: 30 day, Stop date: 12/08/15 0:07:00 CDTNotes: (Same as: BD Posiflush) Acetaminophen 650 mg, 2 tab, No Longer Route: PO, Active 2015 [facility] Drug form: TAB, Q4H, Dosing Weight 80.5, kg, PRN For Temp > 100.4 F, Start date: 11/08/15 0:04:00 CDT, Duration: 30 day, Stop date: 12/08/15 0:03:00 CDTNotes: Do not exceed 4 gm/day. (Same as: Tylenol) dextromethorphan- 10 mL, Route: No Longer guaiFENesin 10 PO, Drug Form: Active 2015 [facility] mg-100 mg/5 mL SYRP, Dosing oral liquid Weight 80.5, kg, Q4H, PRN Cough, Start date: 11/08/15 0:04:00 CDT, Duration: 30 day, Stop date: 12/08/15 0:03:00 CDTNotes: (dextromethorp krause-guaifenesi n 10-100mg/5ml 10 ml oral SOLN ud) (Same as: Robitussin DM) Diphenhydramine 25 mg, 1 cap, No Longer Route: PO, Active 2015 [facility] Drug form: CAP, Q6H, Dosing Weight 80.5, kg, PRN Itching, Start date: 11/08/15 0:04:00 CDT, Duration: 30 day, Stop date: 12/08/15 0:03:00 CDTNotes: (Same as: Benadryl) Tessalon Perles 100 mg, 1 cap, No Longer Route: PO, Active 2015 [facility] Drug form: CAP, Q8H, Dosing Weight 80.5, kg, PRN Cough, Start date: 11/08/15 0:04:00 CDT, Duration: 30 day, Stop date: 12/08/15 0:03:00 CDTNotes: (Same As: Robinson Colon) "Do Not Crush" Ondansetron 4 mg, 2 mL, No Longer Route: IVP, Active 2015 [facility] Drug form: INJ, Q8H, Dosing Weight 80.5, kg, PRN Nausea & Vomiting, Start date: 11/08/15 0:04:00 CDT, Duration: 30 day, Stop date: 12/08/15 0:03:00 CDTNotes: (Same as: Zofran) MEDICATION WASTE Product Size: 4 mg Product Wasted: ___ mg Simethicone 80 mg, 1 tab, No Longer Route: PO, Active 2015 [facility] Drug form: CHEWTAB, Q6H, Dosing Weight 80.5, kg, PRN Gas, Start date: 11/08/15 0:04:00 CDT, Duration: 2 doses or times, Stop date: Limited # of timesNotes: (Same as: Mylicon) Bisacodyl 10 mg, 1 supp, No Longer Route: AK, 2015 [facility] Drug form: SUPP, Daily, Dosing Weight 80.5, kg, PRN Constipation, Start date: 11/08/15 0:04:00 CDT, Duration: 30 day, Stop date: 12/08/15 0:03:00 CDTNotes: (Same As: Dulcolax, Bisco-Lax) Saline Flush 0.9% 10 ml, Route: No Longer IVP, Drug Active 2015 [facility] Form: INJ, Dosing Weight 80.5, kg, PRN, PRN Line Flush, Start date: 11/08/15 0:02:00 CDT, Duration: 30 day, Stop date: 12/08/15 0:01:00 CDTNotes: (Same as: BD Posiflush) enalapril 0.625 mg, 0.5 No Longer mL, Route: 2015 [facility] IVP, Drug form: INJ, Q6H, Dosing Weight 80.5, kg, PRN Hypertension, Start date: 11/08/15 0:02:00 CDT, Stop date: 12/08/15 0:01:00 CDT, For SBP > 180mmHg and/or DBP > 105mmHgNotes: (Same as: Vasotec-IV) Labetalol 10 mg, 2 mL, No Longer Route: IVP, Active 2015 [facility] form: INJ, Q10Min, Dosing Weight 80.5, kg, PRN Hypertension, For SBP > 180 mmHg and/or DBP > 105 mmHg, Priority: Routine, Start date: 11/08/15 0:02:00 CDT, Duration: 30 day, Stop date: 12/08/15 0:01:00 CDTNotes: (Same as: Normodyne, Trandate) Push over 2 minutes Give bolus over 2-3 minutes. Docusate Sodium 100 mg=1 cap, Active [place] 100 MG Oral PO, BID, # 60 2015 [facility] Capsule [Colace] cap, 0 Center Refill(s) pantoprazole 40 40 mg=1 tab, Active [place] MG Enteric Coated PO, BID, # 30 2015 [facility] Tablet [Protonix] tab, 0 Center Refill(s) Sucralfate 100 1 gm=10 mL, Active [place] MG/ML Oral PO, QID-Before 2015 [facility] Suspension Meals, # 1200 Center mL, 0 Refill(s) Folic Acid 1 MG 1 mg=1 tab, Active [place] Oral Tablet PO, Daily, # 2015 [facility] 30 tab, 0 Center Refill(s) ferrous sulfate 325 mg=1 tab, Active [place] 325 mg oral PO, BID-Meals, 2015 [facility] enteric coated # 60 tab, 0 Center tablet Refill(s) Lipitor 40 mg, 1 tab, No Longer [place] Route: PO, Active 2014 [facility] Drug form: Center TAB, Bedtime, Dosing Weight 80.5, kg, Start date: 01/09/15 21:00:00, Duration: 30 day, Stop date: 02/07/15 21:00:00Notes: (Same as: Lipitor) Carafate 1 gm, 10 mL, No Longer [place] Route: PO, Active 2014 [facility] Drug form: Center SUSP, QID-Before Meals, Dosing Weight 80.5, kg, Start date: 01/09/15 13:00:00, Duration: 30 day, Stop date: 02/08/15 11:30:00Notes: Enteral feeds may interfere with the absorption of this medication. Shake well. Take 1 hr before or 2 hrs after antacids, dairy pdt, minerals & meals. (Same As: Carafate) pneumococcal 0.5 mL, Route: Inactive [facility] capsular IM, Drug Form: 2014 [facility] polysaccharide INJ, Daily, [place] type 1 vaccine / Start date: pneumococcal 01/09/15 capsular 9:00:00, polysaccharide Duration: 1 type 10A vaccine doses or / pneumococcal times, Stop capsular date: 01/09/15 polysaccharide 9:00:00Notes: type 11A vaccine (Same as: / pneumococcal Pneumovax 23) capsular Refrigerate polysaccharide type 12F vaccine / pneumococcal capsular polysacchar pantoprazole 40 mg, Route: No Longer [place] IVP, Drug Active 2014 [facility] form: INJ, [place] Q12H, Dosing Weight 80.5, kg, Start date: 01/09/15 9:00:00, Duration: 30 day, Stop date: 02/07/15 21:00:00Notes: For IV push reconstitute with 10 ml 0.9% sodium chloride and push over 2 minutes. (Same as: Protonix) Docusate Sodium 100 mg, 1 cap, No Longer [place] 100 MG Oral Route: PO, Active 2014 [facility] Capsule [Colace] Drug form: [place] CAP, BID, Dosing Weight 80.5, kg, Start date: 01/09/15 9:00:00, Duration: 30 day, Stop date: 02/07/15 17:00:00Notes: (Same as: Colace) (Do Not Crush) Folic Acid 1 mg, 1 tab, No Longer [place] Route: PO, Active 2014 [facility] Drug form: [place] TAB, Daily, Dosing Weight 80.5, kg, Start date: 01/09/15 9:00:00, Duration: 30 day, Stop date: 02/07/15 9:00:00Notes: (Same as: Folvite) Lisinopril 20 mg, 1 tab, No Longer [place] Route: PO, Active 2014 [facility] Drug form: [place] TAB, Daily, Dosing Weight 80.5, kg, Start date: 01/09/15 9:00:00, Duration: 30 day, Stop date: 02/07/15 9:00:00Notes: (Same as: Prinivil, Zestril) Plavix 75 mg, 1 tab, No Longer [place] Route: PO, Active 2014 [facility] Drug form: [place] TAB, Daily, Dosing Weight 80.5, kg, Start date: 01/09/15 9:00:00, Duration: 30 day, Stop date: 02/07/15 9:00:00Notes: (Same As: Plavix) Aspirin 81 MG 81 mg, 1 tab, No Longer [place] Enteric Coated Route: PO, Active 2014 [facility] Tablet Drug form: [place] ECTAB, Daily, Dosing Weight 80.5, kg, Start date: 01/09/15 9:00:00, Duration: 30 day, Stop date: 02/07/15 9:00:00Notes: Do not crush or chew. (Same As: Ecotrin) ferrous sulfate 325 mg, 1 tab, No Longer [place] Route: PO, Active 2014 [facility] Drug form: [place] ECTAB, BID-Meals, Dosing Weight 80.5, kg, Start date: 01/09/15 8:00:00, Stop date: 02/07/15 17:00:00Notes: Give with food. "Do Not Crush" Coreg 6.25 mg, 1 No Longer [place] tab, Route: Active 2014 [facility] PO, Drug form: [place] TAB, BID-Meals, Dosing Weight 80.5, kg, Start date: 01/09/15 8:00:00, Duration: 30 day, Stop date: 02/07/15 17:00:00Notes: Give with food. (Same As: Coreg) NS 1,000 mL 1,000 mL, No Longer [place] Rate: 75 Active 2014 Medical ml/hr, [facility] over: 13.3 hr, Route: IV, Dosing Weight 80.5 kg, Total Volume: 1,000, Start date: 01/09/15 2:08:00, Duration: 30 day, Stop date: 02/08/15 2:07:00 Acetaminophen 325 mg, 1 tab, No Longer [place] Route: PO, Active 2014 Medical Drug form: Center TAB, Q6H, Dosing Weight 80.5, kg, PRN Pain Score 1-3, Start date: 01/09/15 0:24:00, Duration: 30 day, Stop date: 02/08/15 0:23:00Notes: Do not exceed 4 gm/day. (Same as: Tylenol) Zofran 4 mg, 2 mL, No Longer [place] Route: IVP, Active 2014 Medical Drug form: Center INJ, Q4H, Dosing Weight 80.5, kg, PRN Nausea, Start date: 01/09/15 0:23:00, Duration: 30 day, Stop date: 02/08/15 0:22:00Notes: (Same as: Zofran) MEDICATION WASTE Product Size: 4 mg Product Wasted: ___ mg Ranitidine 150 MG 150 mg=1 cap, No Longer [facility] Oral Capsule PO, BID, # 60 Active 2014 Medical cap, 0 Center Refill(s) lisinopril 20 mg 20 mg=1 tab, Active [facility] oral tablet PO, Daily, # 2014 Medical 30 tab, 0 Center Refill(s) atorvastatin 40 40 mg=1 tab, Active [facility] MG Oral Tablet PO, Bedtime, # 2015 Medical [Lipitor] 30 tab, 0 Center Refill(s) carvedilol 6.25 6.25 mg=1 tab, Active [facility] MG Oral Tablet PO, BID, # 60 2015 Medical [Coreg] tab, 0 Center Refill(s) clopidogrel 75 MG 75 mg=1 tab, Active [facility] Oral Tablet PO, Daily, # 2015 Medical [Plavix] 30 tab, 0 Center Refill(s) Aspirin 81 MG 81 mg=1 tab, Active [facility] Enteric Coated PO, Daily, # 2014 Medical Tablet 90 tab, 3 Center Refill(s) Allergies, Adverse Reactions, Alerts Substance Category Reaction Severity Reaction Status Date Comments Source type Reported Immunizations Immunization Date Site Status Last Comments Source Given Updated pneumococcal Right completed Rolando [facility] 23-valent 5 deltoid Medical vaccine Center,[facility] Results Order Name Results Value Reference Date Interpretation Comments Source Range CHEM PANEL Calcium Lvl 7.9 mg/dL 8.5 - 10.5 11/17 [facility] CHEM PANEL Potassium 3.9 meq/L 3.5 - 5.1 11/17 MH Lvl [facility] CHEM PANEL Chloride Lvl 109 meq/L 95 - 109 11/17 [facility] CHEM PANEL CO2 24 meq/L 24 - 32 11/17 [facility] CHEM PANEL Creatinine 1.60 mg/dL 0.50 - 11/17 MH Lvl 1.40 [facility] CHEM PANEL Sodium Lvl 140 meq/L 135 - 145 11/17 [facility] CHEM PANEL eGFR 46 11/17 Result Comment: The eGFR is calculated using the CKD-EPI formula. In most young, healthy individuals the eGFR will be >90 mL/ min/1.73m2. The eGFR declines with age. An eGFR of 60-89 may be normal in mL/min/1. some populations, particularly the elderly, for whom the CKD-EPI formula has not been extensively validated. Use of the eGFR is not recommended in the following populations: [address] Individuals with unstable creatinine concentrations, including patients and those with serious co-morbid conditions. Patients with extremes in muscle mass or diet. The data above are obtained from the National Kidney Disease Education Program (NKDEP) which additionally recommends that when the eGFR is used in patients with extremes of body mass index for purposes of drug dosing, the eGFR should be multiplied by the estimated BMI. CHEM PANEL Glucose Lvl 88 mg/dL 70 - 99 11/17 [facility] CHEM PANEL BUN 21 mg/dL 7 - 22 11/17 [facility] CHEM PANEL AGAP 10.9 meq/L 10.0 - 11/17 MH 20. [facility] HEMATOLOGY Hgb 14.4 g/dL 14.0 - 11/17 MH 18.0 [facility] HEMATOLOGY RBC 4.50 M/CMM 4.70 - 11/17 MH 6.10 [facility] HEMATOLOGY WBC 5.0 K/CMM 3.7 - 10.4 11/17 [facility] HEMATOLOGY MCHC 33.6 g/dL 32.0 - 11/17 MH 36.0 [facility] HEMATOLOGY RDW 13.7 % 11.5 - 11/17 MH 14. [facility] HEMATOLOGY MCV 95.2 fL 80.0 - 11/17 MH 94.0 [facility] HEMATOLOGY MCH 32.0 pg 27.0 - 11/17 MH 31.0 [facility] HEMATOLOGY Hct 42.8 % 42.0 - 11/17 MH 54.0 [facility] HEMATOLOGY MPV 10.3 fL 7.4 - 10.4 11/17 [facility] HEMATOLOGY Platelet 144 K/CMM 133 - 450 11/17 [facility] HEMATOLOGY Plt Morph Normal 11/17 [facility] (11/18/15 5:49 AM) HEMATOLOGY Segs 44.7 % 45.0 - 11/17 MH 75.0 [facility] HEMATOLOGY Eosinophils 0.2 K/CMM 0.0 - 0.5 11/17 [facility] HEMATOLOGY Monocytes 10.0 % 2.0 - 12.0 11/17 [facility] HEMATOLOGY Eosinophils 3.5 % 0.0 - 4.0 11/17 [facility] HEMATOLOGY Monocytes # 0.5 K/CMM 0.0 - 0.8 11/17 [facility] HEMATOLOGY Lymphocytes 2.0 K/CMM 1.0 - 5.5 11/17 [facility] HEMATOLOGY Segs-Bands # 2.2 K/CMM 1.5 - 8.1 11/17 [facility] HEMATOLOGY Lymphocytes 40.4 % 20.0 - 11/17 MH 40.0 [facility] HEMATOLOGY Basophils 1.4 % 0.0 - 1.0 11/17 [facility] HEMATOLOGY Basophils # 0.1 K/CMM 0.0 - 0.2 11/17 [facility] CHEM PANEL eGFR 50 11/16 Result Comment: The eGFR is calculated using the CKD-EPI formula. In most young, healthy individuals the eGFR will be >90 mL/ min/1.73m2. The eGFR declines with age. An eGFR of 60-89 may be normal in mL/min/1 some populations, particularly the elderly, for whom the CKD-EPI formula has not been extensively validated. Use of the eGFR is not recommended in the following populations: [facility] 3m2 Individuals with unstable creatinine concentrations, including patients and those with serious co-morbid conditions. Patients with extremes in muscle mass or diet. The data above are obtained from the National Kidney Disease Education Program (NKDEP) which additionally recommends that when the eGFR is used in patients with extremes of body mass index for purposes of drug dosing, the eGFR should be multiplied by the estimated BMI. CHEM PANEL Glucose Lvl 84 mg/dL 70 - 99 11/16 [facility] CHEM PANEL Calcium Lvl 8.4 mg/dL 8.5 - 10.5 11/16 [facility] CHEM PANEL AGAP 13.3 meq/L 10.0 - 11/16 MH 20.0 [facility] CHEM PANEL CO2 22 meq/L 24 - 32 11/16 [facility] CHEM PANEL Potassium 4.3 meq/L 3.5 - 5.1 11/16 Lvl [facility] CHEM PANEL Chloride Lvl 109 meq/L 95 - 109 11/16 [facility] CHEM PANEL Sodium Lvl 140 meq/L 135 - 145 11/16 [facility] CHEM PANEL BUN 23 mg/dL 7 - 22 11/16 [facility] CHEM PANEL Creatinine 1.50 mg/dL 0.50 - 11/16 Lvl 1.40 [facility] Retroperit Retroperiton The right kidney coxclvhu66.0 x 4.5 x 5.4 cm. The left kidney measures 10.2 x 5.6 x 5.3 cm. Accentuation of the corticomedullary differentiation is noted at the kidneys bilaterally. The urinary bladder [facility] complete is unremarkable sonographically. Neither ureteral jet is identified within the urinary bladder lumen. [facility] w w Doppler US Doppler US The renal veins are patent bilaterally. Color flow and Doppler arterial flow are noted at the aorta, renal arteries and kidneys bilaterally. Read by: Helio Stanton MD Dictated Date/time: 11/16/15 23:00 Electronically Signed by: Helio Stanton MD 11/16/15 23:11 Peak systolic flow velocity at the abdominal aorta is 58 cm/sec. The resistive index at the abdominal aorta is 0.83. FINAL REPORT Peak systolic flow velocity at the right renal artery is 89 cm/sec. The resistive index at the right renal artery is 0.85. The resistive indices at the arcuate arteries at the right kidney at the superi or, mid and inferior poles are 0.6, 0.77, and 0.56, respectively. Peak systolic flow velocity at the left renal artery is 16.2 cm/sec. The resistive index at the left renal artery is 0.67. The resistive indices at the arcuate arteries at the left kidney at the superio r, mid and inferior poles are 0.49, 0.50, and 0.54, respectively. IMPRESSION: 1. Bilateral medical renal disease. 2. Renal Doppler findings do not suggest renal arterial stenosis; however, there is nonspecific asymmetry of the peak systolic flow velocities at the renal arteries bilaterally. If clinically indicated, abdominal CTA might be helpful for further evaluation. ELECTROLYT Chloride Lvl 110 meq/L 95 - 109 11/15 [facility] ELECTROLYT Sodium Lvl 139 meq/L 135 - 145 11/15 [facility] ELECTROLYT Creatinine 1.80 mg/dL 0.50 - 11/15 ES Lvl 1.40 /2015 [facility] ELECTROLYT eGFR 40 11/15 Result Comment: The eGFR is calculated using the CKD-EPI formula. In most young, healthy individuals the eGFR will be >90 mL/ min/1.73m2. The eGFR declines with age. An eGFR of 60-89 may be normal in [facility] mL/min/1.7 some populations, particularly the elderly, for whom the CKD-EPI formula has not been extensively validated. Use of the eGFR is not recommended in the following populations: [facility] 3m2 Individuals with unstable creatinine concentrations, including patients and those with serious co-morbid conditions. Patients with extremes in muscle mass or diet. The data above are obtained from the National Kidney Disease Education Program (NKDEP) which additionally recommends that when the eGFR is used in patients with extremes of body mass index for purposes of drug dosing, the eGFR should be multiplied by the estimated BMI. ELECTROLYT CO2 22 meq/L 24 - 32 11/15 [facility] ELECTROLYT Calcium Lvl 8.0 mg/dL 8.5 - 10.5 11/15 ES [facility] ELECTROLYT AGAP 11.3 meq/L 10.0 - 11/15 ES 20.0 [facility] ELECTROLYT Potassium 4.3 meq/L 3.5 - 5.1 11/15 ES Lvl [facility] ELECTROLYT BUN 28 mg/dL 7 - 22 11/15 ES [facility] ELECTROLYT Glucose Lvl 87 mg/dL 70 - 99 11/15 [facility] HEMATOLOGY Hct 48.9 % 42.0 - 11/15 54.0 [facility] HEMATOLOGY WBC 6.6 K/CMM 3.7 - 10.4 11/15 /2015 [facility] HEMATOLOGY RBC 5.05 M/CMM 4.70 - 11/15 6.10 /2015 [facility] HEMATOLOGY Hgb 16.2 g/dL 14.0 - 11/15 18.0 /2015 [facility] HEMATOLOGY MPV 10.6 fL 7.4 - 10.4 11/15 [facility] HEMATOLOGY MCH 32.2 pg 27.0 - 11/15 31.0 /2015 [facility] HEMATOLOGY MCHC 33.2 g/dL 32.0 - 11/15 36.0 /2015 [facility] HEMATOLOGY RDW 13.9 % 11.5 - 11/15 14.5 /2015 [facility] HEMATOLOGY Platelet 144 K/CMM 133 - 450 11/15 [facility] HEMATOLOGY MCV 96.9 fL 80.0 - 11/15 94.0 [facility] HEMATOLOGY Eosinophils 4.6 % 0.0 - 4.0 11/15 [facility] HEMATOLOGY Monocytes 15.7 % 2.0 - 12.0 11/15 [facility] HEMATOLOGY Segs-Bands # 2.2 K/CMM 1.5 - 8.1 11/15 [facility] HEMATOLOGY Basophils 1.3 % 0.0 - 1.0 11/15 [facility] HEMATOLOGY Lymphocytes 3.0 K/CMM 1.0 - 5.5 11/15 /2015 [facility] HEMATOLOGY Monocytes # 1.0 K/CMM 0.0 - 0.8 11/15 [facility] HEMATOLOGY Eosinophils 0.3 K/CMM 0.0 - 0.5 11/15 # /2015 [facility] HEMATOLOGY Basophils # 0.1 K/CMM 0.0 - 0.2 11/15 [facility] HEMATOLOGY Lymphocytes 45.6 % 20.0 - 11/15 40.0 /2015 [facility] HEMATOLOGY Segs 32.8 % 45.0 - 11/15 75.0 [facility] URINE AND UA null 0.1 - 1.0 11/15 STOOL Urobilinogen /2015 [facility] URINE AND UA Sq Epi Occasional Few /LPF 11/15 STOOL /LPF /2015 [facility] URINE AND UA WBC 2 /HPF 0 - 5 11/15 STOOL /2015 [facility] URINE AND UA Nitrite Negative Negative 11/15 STOOL /2015 [facility] (11/16/15 1:57 AM) URINE AND UA Leuk Est Negative Negative 11/15 STOOL [facility] (11/16/15 1:57 AM) URINE AND UA RBC 1 /HPF 0 - 2 11/15 STOOL [facility] URINE AND UA Mucus Few /LPF None Seen 11/15 STOOL /LPF /2015 [facility] URINE AND UA Hyal Cast 9 /LPF 0 - 2 11/15 STOOL [facility] URINE AND UA Bacteria Occasional None Seen 11/15 STOOL /HPF /HPF [facility] URINE AND UA Turbidity Clear Clear 11/15 STOOL [facility] (11/16/15 1:57 AM) URINE AND UA pH 5.0 5.0 - 8.0 11/15 STOOL [facility] URINE AND UA Spec Grav 1.015 <=1.030 11/15 STOOL [facility] URINE AND UA Bili Negative Negative 11/15 STOOL [facility] *NA* (11/16/15 1:57 AM) URINE AND UA Protein Negative Negative 11/15 STOOL mg/dL mg/dL [facility] URINE AND UA Glucose 50 mg/dL Negative 11/15 STOOL mg/dL [facility] URINE AND UA Blood Small Negative 11/15 STOOL [facility] *ABN* (11/16/15 1:57 AM) URINE AND UA Ketones Negative Negative 11/15 STOOL mg/dL mg/dL [facility] URINE AND UA Color Light Yellow Yellow 11/15 [facility] *NA* (11/16/15 1:57 AM) URINE CHEM U Prot/Creat 0.2 11/15 [facility] URINE CHEM U Eos None Seen None Seen 11/15 [facility] (11/16/15 1:57 AM) URINE CHEM U Creatinine 140.00 11/15 mg/dL [facility] URINE CHEM U Protein 32.2 mg/dL 11/15 [facility] TOXICOLOGY Phenytoin 0.92 ug/ml 1.00 - 11/14 Free 2.00 [facility] CHEM PANEL Phosphorus 3.5 mg/dL 2.5 - 4.5 11/13 [facility] CHEM PANEL A/G Ratio 0.7 0.7 - 1.6 11/13 [facility] CHEM PANEL Globulin 4.2 g/dL 2.0 - 4.0 11/13 [facility] CHEM PANEL B/C Ratio 16 6 - 25 11/13 [facility] CHEM PANEL ASPARTATE 22 unit/L 0 - 37 11/13 TRANSAMINASE /2015 [facility] CHEM PANEL ALANINE 31 unit/L 0 - 65 11/13 AMINOTRANSFE /2015 [facility] RASE CHEM PANEL Albumin Lvl 3.1 g/dL 3.5 - 5.0 11/13 [facility] CHEM PANEL Total 7.3 g/dL 6.4 - 8.4 11/13 Protein [facility] CHEM PANEL Bili Total 0.4 mg/dL 0.2 - 1.3 11/13 [facility] CHEM PANEL Alk Phos 46 unit/L 39 - 136 11/13 [facility] CHEM PANEL Magnesium 2.1 mg/dL 1.8 - 2.4 11/13 Lvl /2015 [facility] HEMATOLOGY MPV 11.1 fL 7.4 - 10.4 11/13 [facility] HEMATOLOGY MCH 31.9 pg 27.0 - 11/13 31.0 [facility] HEMATOLOGY MCHC 33.1 g/dL 32.0 - 11/13 36.0 [facility] HEMATOLOGY Platelet 99 K/CMM 133 - 450 11/13 [facility] HEMATOLOGY RDW 13.7 % 11.5 - 11/13 14.5 [facility] HEMATOLOGY WBC 4.4 K/CMM 3.7 - 10.4 11/13 [facility] HEMATOLOGY MCV 96.4 fL 80.0 - 11/13 94.0 [facility] HEMATOLOGY RBC 5.03 M/CMM 4.70 - 11/13 MH 6.10 /2015 [facility] HEMATOLOGY Hgb 16.1 g/dL 14.0 - 11/13 18.0 [facility] HEMATOLOGY Hct 48.5 % 42.0 - 11/13 54.0 [facility] HEMATOLOGY Monocytes # 1.0 K/CMM 0.0 - 0.8 11/13 [facility] HEMATOLOGY Eosinophils 0.3 K/CMM 0.0 - 0.5 11/13 MH # /2015 [facility] HEMATOLOGY Lymphocytes 1.0 K/CMM 1.0 - 5.5 11/13 MH # /2015 [facility] HEMATOLOGY Basophils 1.2 % 0.0 - 1.0 11/13 [facility] HEMATOLOGY Eosinophils 6.6 % 0.0 - 4.0 11/13 [facility] HEMATOLOGY Monocytes 23.6 % 2.0 - 12.0 11/13 [facility] HEMATOLOGY Basophils # 0.1 K/CMM 0.0 - 0.2 11/13 [facility] HEMATOLOGY Segs-Bands # 2.1 K/CMM 1.5 - 8.1 11/13 [facility] HEMATOLOGY Segs 46.6 % 45.0 - 11/13 MH 75.0 /2016 [facility] HEMATOLOGY Lymphocytes 22.0 % 20.0 - 11/13 MH 40.0 /2016 [facility] IMMUNOLOGY Prealbumin 21.8 mg/dL 18.0 - 11/13 45.0 2016 [facility] Carotid Carotid Study: Carotid artery Doppler bilat US ; Age: 59 years y/o Male 11/09 - artery - [facility] Doppler Doppler Clinical Indication: Transient cerebral ischem; bilat US bilat US Comparison: None Read by: Severo Alex MD Dictated Date/time: 11/10/15 21:14 Electronically Signed by: Severo Alex MD 11/10/15 21:16 FINAL REPORT TECHNIQUE: Pringle-scale, color Doppler and spectral Doppler of the carotid arteries was performed. Any reported ICA stenoses indirectly reference the distal internal carotid diameter as the denominator f or the stenosis measurement, utilizing consensus panel criteria. FINDINGS: RIGHT: Mild atherosclerotic plaque formation present in the proximal internal carotid artery. ICA PSV 61 cm/sec CCA PSV 100 cm/sec ICA/CCA ratio 0.61 Vertebral flow is antegrade. External carotid artery is patent. LEFT: Mild plaque formation at the carotid bifurcation and carotid bulb region. No significant stenosis suspected. ICA PSV 48 cm/sec CCA PSV 104 cm/sec ICA/CCA ratio 0.46 Vertebral flow is not identified. Area of scan obscured by IV site.. External carotid artery is patent. IMPRESSION: 1. RIGHT: ICA stenosis <50 % by velocity criteria. 1. LEFT: ICA stenosis <50 % by velocity criteria. Consensus panel Doppler US criteria for diagnosis of ICA stenosis: Stenosis (%) ICA PSV (cm/sec) ICA/CCA ratio -- <50 <125 <2.0 50-69 125-230 2.0-4.0 >70 but less than >230 >4.0 near occlusion Near occlusion High, low, or Variable undetectable SL: [id number] CHEM PANEL Phosphorus 3.0 mg/dL 2.5 - 4.5 11/08 [facility] CHEM PANEL eGFR 63 11/08 Result Comment: The eGFR is calculated using the CKD-EPI formula. In most young, healthy individuals the eGFR will be >90 mL/ min/1.73m2. The eGFR declines with age. An eGFR of 60-89 may be normal in mL/min/1.7 some populations, particularly the elderly, for whom the CKD-EPI formula has not been extensively validated. Use of the eGFR is not recommended in the following populations: [place] [address] Individuals with unstable creatinine concentrations, including patients and those with serious co-morbid conditions. Patients with extremes in muscle mass or diet. The data above are obtained from the National Kidney Disease Education Program (NKDEP) which additionally recommends that when the eGFR is used in patients with extremes of body mass index for purposes of drug dosing, the eGFR should be multiplied by the estimated BMI. CHEM PANEL Glucose Lvl 90 mg/dL 70 - 99 11/08 [facility] CHEM PANEL BUN 12 mg/dL 7 - 22 11/08 [facility] CHEM PANEL Albumin Lvl 3.0 g/dL 3.5 - 5.0 11/08 [facility] CHEM PANEL CO2 23 meq/L 24 - 32 11/08 [facility] CHEM PANEL Chloride Lvl 107 meq/L 95 - 109 11/08 [facility] CHEM PANEL Total 7.0 g/dL 6.4 - 8.4 11/08 [facility] CHEM PANEL Calcium Lvl 8.4 mg/dL 8.5 - 10.5 11/08 [facility] CHEM PANEL Creatinine 1.40 mg/dL 0.50 - 11/08 Lvl 1.40 [facility] CHEM PANEL Sodium Lvl 141 meq/L 135 - 145 11/08 [facility] CHEM PANEL Potassium 3.6 meq/L 3.5 - 5.1 11/08 Lvl [facility] CHEM PANEL ASPARTATE 19 unit/L 0 - 37 11/08 TRANSAMINASE [facility] CHEM PANEL ALANINE 18 unit/L 0 - 65 11/08 AMINOTRANSFE /2015 [facility] RASE CHEM PANEL Bili Total 1.2 mg/dL 0.2 - 1.3 11/08 [facility] CHEM PANEL Alk Phos 50 unit/L 39 - 136 11/08 [facility] CHEM PANEL B/C Ratio 9 6 - 25 11/08 [facility] CHEM PANEL A/G Ratio 0.8 0.7 - 1.6 11/08 [facility] CHEM PANEL Globulin 4.0 g/dL 2.0 - 4.0 11/08 [facility] CHEM PANEL AGAP 14.6 meq/L 10.0 - 11/08 MH 20.0 [facility] CHEM PANEL Magnesium 1.8 mg/dL 1.8 - 2.4 11/08 Lvl /2015 [facility] HEMATOLOGY Lymphocytes 31.3 % 20.0 - 11/08 MH 40.0 [facility] HEMATOLOGY Monocytes 12.1 % 2.0 - 12.0 11/08 [facility] HEMATOLOGY Segs 54.5 % 45.0 - 11/08 MH 75.0 [facility] HEMATOLOGY Basophils 0.5 % 0.0 - 1.0 11/08 [facility] HEMATOLOGY Eosinophils 1.6 % 0.0 - 4.0 11/08 [facility] HEMATOLOGY Segs-Bands # 3.5 K/CMM 1.5 - 8.1 11/08 [facility] HEMATOLOGY Eosinophils 0.1 K/CMM 0.0 - 0.5 11/08 MH /2015 [facility] HEMATOLOGY Basophils # 0.0 K/CMM 0.0 - 0.2 11/08 [facility] HEMATOLOGY Monocytes # 0.8 K/CMM 0.0 - 0.8 11/08 [facility] HEMATOLOGY Lymphocytes 2.0 K/CMM 1.0 - 5.5 11/08 MH [facility] HEMATOLOGY Platelet 78 K/CMM 133 - 450 11/08 [facility] HEMATOLOGY MPV 12.0 fL 7.4 - 10.4 11/08 [facility] HEMATOLOGY RDW 14.1 % 11.5 - 11/08 MH 14. [facility] HEMATOLOGY MCH 32.2 pg 27.0 - 11/08 MH 31.0 [facility] HEMATOLOGY MCHC 33.2 g/dL 32.0 - 11/08 MH 36.0 [facility] HEMATOLOGY Hgb 16.3 g/dL 14.0 - 11/08 18.0 /2015 [facility] HEMATOLOGY Hct 49.0 % 42.0 - 11/08 54.0 [facility] HEMATOLOGY MCV 96.9 fL 80.0 - 11/08 94.0 [facility] HEMATOLOGY WBC 6.5 K/CMM 3.7 - 10.4 11/08 [facility] HEMATOLOGY RBC 5.06 M/CMM 4.70 - 11/08 6.10 /2015 [facility] Brain wo Brain wo EXAM: MRI BRAIN WITHOUT CONTRAST 11/08 - contrast contrast MRI /2015 - [facility] MRI DATE: 11/08/2015 12:02 AM CDT Read by: Royal Chi MD Dictated Date/time: 11/09/15 21:31 Electronically Signed by: Royal Chi MD 11/09/15 21:35 FINAL REPORT INDICATION: Facial numbness COMPARISON: None. TECHNIQUE: Multiplanar, mutisequence MRI of the brain without contrast. IV contrast: None. FINDINGS: Marked motion artifact degrades image quality. Diffusion weighted images demonstrate no focal signal abnormality. 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 There are multiple scattered nonspecific foci of T2/FLAIR signal abnormality likely reflecting moderate chronic small vessel ischemic change. No acut e intracranial hemorrhage detected. The ventricles are normal in size and symmetric. No extra-axial fluid collection identified. Pringle-white distinction is preserved. No mass lesion or midline shift detected. The intracranial arterial and venous structures demonstrate normal flow voids. The visible paranasal sinuses and skull base are unremarkable. IMPRESSION: 1. Severely limited study nearly nondiagnostic as above. No definite acute infarct or gross intracranial hemorrhage detected. 2. 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 3. Moderate chronic small vessel ischemic change. SL: JNGUYEN-PC CARDIAC Troponin-I 0.03 ng/mL 0.00 - 11/07 ENZYMES 0.40 /2016 [facility] ELECTROLYT AGAP 14.7 meq/L 10.0 - 11/07 ES 20.0 [facility] ELECTROLYT eGFR 58 11/07 Result Comment: The eGFR is calculated using the CKD-EPI formula. In most young, healthy individuals the eGFR will be >90 mL/ min/1.73m2. The eGFR declines with age. An eGFR of 60-89 may be normal in ES mL/min/1.7 /2015 some populations, particularly the elderly, for whom the CKD-EPI formula has not been extensively validated. Use of the eGFR is not recommended in the following populations: [facility] 3m2 Individuals with unstable creatinine concentrations, including patients and those with serious co-morbid conditions. Patients with extremes in muscle mass or diet. The data above are obtained from the National Kidney Disease Education Program (NKDEP) which additionally recommends that when the eGFR is used in patients with extremes of body mass index for purposes of drug dosing, the eGFR should be multiplied by the estimated BMI. ELECTROLYT Chloride Lvl 110 meq/L 95 - 109 11/07 [facility] ELECTROLYT BUN 18 mg/dL 7 - 22 11/07 [facility] ELECTROLYT Sodium Lvl 143 meq/L 135 - 145 11/07 [facility] ELECTROLYT Creatinine 1.50 mg/dL 0.50 - 11/[address] [facility] Lvl 1.40 [facility] ELECTROLYT Potassium 3.7 meq/L 3.5 - 5.1 11/[address] [facility] Lv [facility] ELECTROLYT CO2 22 meq/L 24 - 32 11/07 [facility] ELECTROLYT Calcium Lvl 8.5 mg/dL 8.5 - 10.5 11/07 [facility] ELECTROLYT Glucose Lvl 96 mg/dL 70 - 99 11/07 [facility] HEMATOLOGY MCH 32.0 pg 27.0 - 11/07 31.0 [facility] HEMATOLOGY RDW 14.0 % 11.5 - 11/07 14. [facility] HEMATOLOGY MCHC 33.2 g/dL 32.0 - 11/07 36.0 [facility] HEMATOLOGY MCV 96.6 fL 80.0 - 11/07 94.0 [facility] HEMATOLOGY Hct 44.4 % 42.0 - 11/07 54.0 [facility] HEMATOLOGY WBC 9.0 K/CMM 3.7 - 10.4 11/07 [facility] HEMATOLOGY Hgb 14.7 g/dL 14.0 - 11/07 18.0 [facility] HEMATOLOGY RBC 4.60 M/CMM 4.70 - 11/07 6.10 [facility] HEMATOLOGY MPV 12.1 fL 7.4 - 10.4 11/07 [facility] HEMATOLOGY Platelet 91 K/CMM 133 - 450 11/07 [facility] HEMATOLOGY Basophils 0.7 % 0.0 - 1.0 11/07 [facility] HEMATOLOGY Eosinophils 0.4 % 0.0 - 4.0 11/07 [facility] HEMATOLOGY Monocytes 8.9 % 2.0 - 12.0 11/07 [facility] HEMATOLOGY RBC Morph Normal 11/07 [facility] (11/08/15 6:00 AM) HEMATOLOGY Plt Morph Normal 11/07 [facility] (11/08/15 6:00 AM) HEMATOLOGY Lymphocytes 1.7 K/CMM 1.0 - 5.5 11/07 MH # /2016 [facility] HEMATOLOGY Monocytes # 0.8 K/CMM 0.0 - 0.8 11/07 [facility] HEMATOLOGY Basophils # 0.1 K/CMM 0.0 - 0.2 11/07 [facility] HEMATOLOGY Segs-Bands # 6.4 K/CMM 1.5 - 8.1 11/07 [facility] HEMATOLOGY Lymphocytes 19.1 % 20.0 - 11/07 40.0 [facility] HEMATOLOGY Segs 70.9 % 45.0 - 11/07 75.0 [facility] CARDIAC Troponin-I 0.03 ng/mL 0.00 - 11/07 ENZYMES 0.40 [facility] CHEM PANEL eGFR 53 11/07 Result Comment: The eGFR is calculated using the CKD-EPI formula. In most young, healthy individuals the eGFR will be >90 mL/ min/1.73m2. The eGFR declines with age. An eGFR of 60-89 may be normal in [facility] mL/min/1. some populations, particularly the elderly, for whom the CKD-EPI formula has not been extensively validated. Use of the eGFR is not recommended in the following populations: [address] Individuals with unstable creatinine concentrations, including patients and those with serious co-morbid conditions. Patients with extremes in muscle mass or diet. The data above are obtained from the National Kidney Disease Education Program (NKDEP) which additionally recommends that when the eGFR is used in patients with extremes of body mass index for purposes of drug dosing, the eGFR should be multiplied by the estimated BMI. CHEM PANEL Calcium Lvl 8.3 mg/dL 8.5 - 10.5 11/07 [facility] CHEM PANEL Chloride Lvl 109 meq/L 95 - 109 11/07 [facility] CHEM PANEL CO2 23 meq/L 24 - 32 11/07 [facility] CHEM PANEL BUN 19 mg/dL 7 - 22 11/07 /2015 [facility] CHEM PANEL Glucose Lvl 100 mg/dL 70 - 99 11/07 /2015 [facility] CHEM PANEL Sodium Lvl 142 meq/L 135 - 145 11/07 [facility] CHEM PANEL Potassium 4.0 meq/L 3.5 - 5.1 11/07 Result MH Lvl /2015 Comment: [facility] Specimen Slightly Hemolyzed. CHEM PANEL Creatinine 1.60 mg/dL 0.50 - 11/07 Lvl 1.40 /2015 [facility] CHEM PANEL AGAP 14.0 meq/L 10.0 - 11/07 MH 20.0 /2015 [facility] DRUG U Benzodia Negative Negative 11/07 SCREEN Scr [facility] *NA* (11/08/15 3:02 AM) DRUG U Dian Scr Negative Negative 11/07 SCREEN [facility] *NA* (11/08/15 3:02 AM) DRUG U Amph Scr Negative Negative 11/07 SCREEN [facility] *NA* (11/08/15 3:02 AM) DRUG U Cannab Scr Positive Negative 11/07 SCREEN [facility] *ABN* (11/08/15 3:02 AM) DRUG U Cocaine Negative Negative 11/07 SCREEN Scr [facility] *NA* (11/08/15 3:02 AM) DRUG U Phencyc Negative Negative 11/07 SCREEN Scr [facility] *NA* (11/08/15 3:02 AM) DRUG U Opiate Scr Negative Negative 11/07 SCREEN [facility] *NA* (11/08/15 3:02 AM) DRUG UDS Note See Note 11/07 SCREEN /2015 [facility] (11/08/15 3:02 AM) IMMUNOLOGY Treponemal Non Reactive Non 11/07 Scr Reactive /2015 [facility] *NA* (11/08/15 3:02 AM) LIPIDS Trig 46 mg/dL <=149 11/07 mg/dL [facility] LIPIDS Chol 88 mg/dL <=199 11/07 mg/dL [facility] LIPIDS HDL 42 mg/dL >=61 mg/dL 11/07 [facility] LIPIDS LDL 37 mg/dL <=99 mg/dL 11/07 (Calculated) /2015 [facility] LIPIDS VLDL 9 11/07 /2015 [facility] LIPIDS CHD Risk 2.10 4.00 - 11/07 7.30 /2015 [facility] SPECIAL Hgb A1C 5.7 % <=5.6 % 11/07 CHEMISTRY [facility] URINE AND UA Ketones Negative Negative 11/07 STOOL mg/dL mg/dL [facility] URINE AND UA Glucose 50 mg/dL Negative 11/07 STOOL mg/dL [facility] URINE AND UA Protein Negative Negative 11/07 STOOL mg/dL mg/dL [facility] URINE AND UA pH 6.0 5.0 - 8.0 11/07 STOOL [facility] URINE AND UA Spec Grav 1.012 <=1.030 11/07 STOOL [facility] URINE AND UA Turbidity Clear Clear 11/07 STOOL [facility] (11/08/15 3:02 AM) URINE AND UA Color Light Yellow Yellow 11/07 STOOL [facility] *NA* (11/08/15 3:02 AM) URINE AND UA Mucus Few /LPF None Seen 11/07 STOOL /LPF [facility] URINE AND UA Bacteria Occasional None Seen 11/07 STOOL /HPF /HPF [facility] URINE AND UA RBC 21 /HPF 0 - 2 11/07 STOOL [facility] URINE AND UA WBC 25 /HPF 0 - 5 11/07 STOOL [facility] URINE AND UA Sq Epi Occasional Few /LPF 11/07 STOOL /LPF [facility] URINE AND UA Leuk Est Negative Negative 11/07 STOOL [facility] (11/08/15 3:02 AM) URINE AND UA Nitrite Negative Negative 11/07 STOOL [facility] (11/08/15 3:02 AM) URINE AND UA Blood Moderate Negative 11/07 [facility] *ABN* (11/08/15 3:02 AM) URINE AND UA Bili Negative Negative 11/07 STOOL [facility] *NA* (11/08/15 3:02 AM) URINE AND UA null 0.1 - 1.0 11/07 [facility] Urobilinogen [facility] CHEM PANEL Magnesium 1.8 mg/dL 1.8 - 2.4 01/10 [facility] Lvl /2014 [facility] CHEM PANEL Phosphorus 3.1 mg/dL 2.5 - 4.5 01/10 [facility]2014 [facility] CHEM PANEL eGFR 84 01/10 1Result Comment: The eGFR is calculated using the CKD-EPI formula. In most young, healthy individuals the eGFR will be >90 mL/ min/1.73m2. The eGFR declines with age. An eGFR of 60-89 may be normal in [facility] mL/min/1. some populations, particularly the elderly, for whom the CKD-EPI formula has not been extensively validated. Use of the eGFR is not recommended in the following populations: [address] Individuals with unstable creatinine concentrations, including patients and those with serious co-morbid conditions. Patients with extremes in muscle mass or diet. The data above are obtained from the National Kidney Disease Education Program (NKDEP) which additionally recommends that when the eGFR is used in patients with extremes of body mass index for purposes of drug dosing, the eGFR should be multiplied by the estimated BMI. CHEM PANEL Creatinine 1.1 mg/dL 0.5 - 1.4 01/10 [facility] CHEM PANEL Potassium 3.6 meq/L 3.5 - 5.1 01/10 [facility] CHEM PANEL Sodium Lvl 141 meq/L 135 - 145 01/10 [facility]2014 [facility] CHEM PANEL Calcium Lvl 8.2 mg/dL 8.5 - 10.5 01/10 [facility]2014 [facility] CHEM PANEL CO2 28 meq/L 24 - 32 01/10 [facility] CHEM PANEL Chloride Lvl 106 meq/L 95 - 109 01/10 [facility] CHEM PANEL AGAP 10.6 meq/L 10.0 - 01/10 [facility] 20.0 [facility] CHEM PANEL Glucose Lvl 87 mg/dL 70 - 99 01/10 3Interpretive Data: Adult reference range values reflect the clinical guidelines of the [place] [employer]. [facility] CHEM PANEL BUN 6 mg/dL - 01/10 [facility] HEMATOLOGY Tear Cell Moderate None Seen 01/10 [facility] [place] (01/10/15 3:59 AM) HEMATOLOGY Basophils # 0.1 K/CMM 0.0 - 0.2 01/10 [facility]2014 [facility] HEMATOLOGY Anisocyte 1+ None Seen 01/10 [facility] [place] (01/10/15 3:59 AM) HEMATOLOGY Microcyte 2+ None Seen 01/10 [facility] (01/10/15 3:59 AM) HEMATOLOGY Hypochrom 1+ None Seen 01/10 [facility] (01/10/15 3:59 AM) Center HEMATOLOGY Polychrom Moderate None Seen 01/10 [facility] *ABN* Center (01/10/15 3:59 AM) HEMATOLOGY Plt Morph Normal 01/10 [facility] (01/10/15 3:59 AM) [place] HEMATOLOGY Segs 68.8 % 45.0 - 01/10 [place] 75.0 /2014 [facility] HEMATOLOGY Lymphocytes 15.6 % 20.0 - 01/10 [place] 40.0 [facility] HEMATOLOGY Eosinophils 0.2 K/CMM 0.0 - 0.5 01/10 # /2014 [facility] HEMATOLOGY Basophils 1.4 % 0.0 - 1.0 01/10 [facility] HEMATOLOGY Segs-Bands # 5.5 K/CMM 1.5 - 8.1 01/10 [facility] HEMATOLOGY Lymphocytes 1.3 K/CMM 1.0 - 5.5 01/10 /2014 [facility] HEMATOLOGY Monocytes # 0.9 K/CMM 0.0 - 0.8 01/10 [facility] HEMATOLOGY Monocytes 11.1 % 2.0 - 12.0 01/10 [facility] HEMATOLOGY Eosinophils 3.1 % 0.0 - 4.0 01/10 [facility] HEMATOLOGY MCHC 31.5 g/dL 32.0 - 01/10 [place] 36.0 [facility] HEMATOLOGY Hct 29.2 % 42.0 - 01/10 54.0 /2014 [facility] HEMATOLOGY MCH 21.7 pg 27.0 - 01/10 [place] 31.0 [facility] HEMATOLOGY Hgb 9.2 g/dL 14.0 - 01/10 [place] 18.0 [facility] HEMATOLOGY MCV 69.0 fL 80.0 - 01/10 [place] 94.0 [facility] HEMATOLOGY WBC 8.0 K/CMM 3.7 - 10.4 01/10 [facility] HEMATOLOGY RBC 4.23 M/CMM 4.70 - 01/10 [place] 6.10 [facility] HEMATOLOGY MPV 9.0 fL 7.4 - 10.4 01/10 [facility] HEMATOLOGY Platelet 288 K/CMM 133 - 450 01/10 [facility] HEMATOLOGY RDW 25.9 % 11.5 - 01/10 14. [facility] HEMATOLOGY Hct 29.1 % 42.0 - 01/09 .0 [facility] HEMATOLOGY Hgb 9.1 g/dL 14.0 - 01/09 . [facility] HEMATOLOGY Hgb 8.8 g/dL 14.0 - 01/09 .0 [facility] HEMATOLOGY Hct 29.0 % 42.0 - 01/09 .0 [facility] CHEM PANEL Magnesium 2.0 mg/dL 1.8 - 2.4 01/09 [facility] ELECTROLYT AGAP 11.7 meq/L 10.0 - 01/09 [facility] . [facility] ELECTROLYT CO2 28 meq/L 24 - 32 01/09 [facility] ELECTROLYT Calcium Lvl 8.3 mg/dL 8.5 - 10.5 01/09 [facility] ELECTROLYT Chloride Lvl 104 meq/L 95 - 109 01/09 [facility] ELECTROLYT eGFR 94 01/09 2Result Comment: The eGFR is calculated using the CKD-EPI formula. In most young, healthy individuals the eGFR will be >90 mL/ min/1.73m2. The eGFR declines with age. An eGFR of 60-89 may be normal in [facility] mL/min/1. some populations, particularly the elderly, for whom the CKD-EPI formula has not been extensively validated. Use of the eGFR is not recommended in the following populations: [address] Individuals with unstable creatinine concentrations, including patients and those with serious co-morbid conditions. Patients with extremes in muscle mass or diet. The data above are obtained from the National Kidney Disease Education Program (NKDEP) which additionally recommends that when the eGFR is used in patients with extremes of body mass index for purposes of drug dosing, the eGFR should be multiplied by the estimated BMI. ELECTROLYT Glucose Lvl 88 mg/dL 70 - 99 01/09 4Interpretive Data: Adult reference range values reflect the clinical guidelines [facility] of the [place] [employer]. [facility] ELECTROLYT Sodium Lvl 140 meq/L 135 - 145 01/09 [facility] ELECTROLYT Potassium 3.7 meq/L 3.5 - 5.1 01/09 [facility] ES Lvl [facility] ELECTROLYT Creatinine 1.0 mg/dL 0.5 - 1.4 01/09 [facility] ES Lv [facility] ELECTROLYT BUN 10 mg/dL 7 - 01/09 [facility] ES [facility] HEMATOLOGY PT 13.9 s 12.0 - 01/09 [place] 14.7 /2014 [facility] HEMATOLOGY PTT 34.2 s 22.9 - 01/09 6Interpretive [facility] 35.8 Data: [facility] Range: 57 - 92 [facility] HEMATOLOGY INR 1.07 0.85 - 01/09 5Interpretive Data: RECOMMENDED RANGES FOR PROTIME INR: [facility] 1. 2.0-3.0 for most medical and surgical thromboembolic states. Medical 2.5-3.5 for artificial heart valves and recurrent embolism. Center INR SHOULD BE USED ONLY FOR PATIENTS ON STABLE ANTICOAGULANT THERAPY. HEMATOLOGY RBC 4.24 M/CMM 4.70 - 01/09 6.10 [facility] HEMATOLOGY MCH 21.2 pg 27.0 - 01/09 31.0 [facility] HEMATOLOGY MCV 68.3 fL 80.0 - 01/09 [place] 94.0 [facility] HEMATOLOGY Platelet 312 K/CMM 133 - 450 01/09 [facility] HEMATOLOGY RDW 25.6 % 11.5 - 01/09 14.5 [facility] HEMATOLOGY MCHC 31.1 g/dL 32.0 - 01/09 [place] 36.0 /2014 [facility] HEMATOLOGY MPV 8.8 fL 7.4 - 10.4 01/09 [facility] HEMATOLOGY WBC 9.9 K/CMM 3.7 - 10.4 01/09 [facility] HEMATOLOGY Hypochrom 1+ None Seen 01/09 /2014 [facility] (01/09/15 1:35 AM) Center HEMATOLOGY Lymphocytes 1.6 K/CMM 1.0 - 5.5 01/09 # /2014 [facility] HEMATOLOGY Lymphocytes 16.6 % 20.0 - 01/09 [place] 40.0 /2014 [facility] HEMATOLOGY Monocytes 9.5 % 2.0 - 12.0 01/09 [facility] HEMATOLOGY Segs 71.1 % 45.0 - 01/09 [place] 75.0 /2014 [facility] HEMATOLOGY Plt Morph Normal 01/09 [facility] (01/09/15 1:35 AM) [place] HEMATOLOGY Segs-Bands # 7.0 K/CMM 1.5 - 8.1 01/09 [facility]2014 [facility] HEMATOLOGY Eosinophils 1.6 % 0.0 - 4.0 01/09 [facility]2014 [facility] HEMATOLOGY Anisocyte 1+ None Seen 01/09 [facility] *ABN* Center (01/09/15 1:35 AM) HEMATOLOGY Basophils 1.2 % 0.0 - 1.0 01/09 2014 [facility] HEMATOLOGY Eosinophils 0.2 K/CMM 0.0 - 0.5 01/09 [facility] /2014 [facility] HEMATOLOGY Microcyte 3+ None Seen 01/09 [facility] *NA* Center (01/09/15 1:35 AM) HEMATOLOGY Basophils # 0.1 K/CMM 0.0 - 0.2 01/09 2014 [facility] HEMATOLOGY Monocytes # 0.9 K/CMM 0.0 - 0.8 01/[address] Vital Signs Vital Sign Value Date Comments Source Heart Rate 66 11/18/2015 [facility] Systolic (mm Hg) 152 11/18/2015 [facility] Diastolic (mm Hg) 108 11/18/2015 [facility] Temperature Oral (F) 98.0 F 11/18/2015 [facility] Respitory Rate 20 11/18/2015 [facility] Diastolic (mm Hg) 107 11/18/2015 [facility] Systolic (mm Hg) 159 11/18/2015 [facility] Heart Rate 64 11/18/2015 [facility] Respitory Rate 20 11/18/2015 [facility] Diastolic (mm Hg) 99 11/18/2015 [facility] Systolic (mm Hg) 150 11/18/2015 [facility] Heart Rate 59 11/18/2015 [facility] Temperature Oral (F) 98.0 F 11/18/2015 [facility] Respitory Rate 20 11/18/2015 [facility] Temperature Oral (F) 98.6 F 11/17/2015 [facility] BMI Calculated 28.47 11/12/2015 [facility] Weight 87.443 11/12/2015 [facility] Height 175.26 cm 11/12/2015 [facility] Systolic (mm Hg) 140 11/11/2015 [facility] Diastolic (mm Hg) 103 11/11/2015 [facility] Temperature Oral (F) 99.2 F 11/11/2015 [facility] Respitory Rate 18 11/11/2015 [facility] Heart Rate 73 11/11/2015 [facility] Respitory Rate 18 11/11/2015 [facility] Systolic (mm Hg) 153 11/11/2015 [facility] Diastolic (mm Hg) 111 11/11/2015 [facility] Heart Rate 73 11/11/2015 [facility] Temperature Oral (F) 98.3 F 11/11/2015 [facility] Temperature Oral (F) 98.4 F 11/11/2015 [facility] Respitory Rate 18 11/11/2015 [facility] Systolic (mm Hg) 136 11/11/2015 [facility] Diastolic (mm Hg) 97 11/11/2015 [facility] Heart Rate 73 11/11/2015 [facility] BMI Calculated 34.05 11/08/2015 [facility] Height 165.1 cm 11/08/2015 [facility] Weight 92.813 11/08/2015 [facility] Temperature Oral (F) 96.6 F 01/10/2015 [facility] Respitory Rate 21 01/10/2015 [facility] Respitory Rate 24 01/10/2015 [facility] Systolic (mm Hg) 127 01/10/2015 [facility] Diastolic (mm Hg) 79 01/10/2015 [facility] Systolic (mm Hg) 157 01/10/2015 [facility] Diastolic (mm Hg) 113 01/10/2015 [facility] Respitory Rate 26 01/10/2015 [facility] Systolic (mm Hg) 144 01/10/2015 [facility] Diastolic (mm Hg) 98 01/10/2015 [facility] Temperature Oral (F) 97.6 F 01/10/2015 [facility] Temperature Oral (F) 95.9 F 01/10/2015 [facility] Height 182.88 cm 01/09/2015 [facility] BMI Calculated 24.07 01/09/2015 [facility] Weight 80.5 01/09/2015 [facility] Encounters Location Location Encounter Encounter Reason Attending ADM DC Status Source Details Type Number For Provider Date Date Visit [facility] [id number] Tobias 01/10 01/10 Melba Lara Observation 1 Jacey /2014 [facility] [id number] Jameel 11/07 11/10 Marco Machado /2015 [facility] Inpatient [id number] Carlos Enrique Allam 11/10 11/17 [facility] Rehabilita ion Procedures Procedure Code Date Perfomer Comments Source Hip replacement [id number] 07/22/2010 [facility] Hip replacement [id number] 07/22/2010 [facility] Stent [id number] 1CARDIAC [facility] placement<sup>1</ [facility] sup> Stent [id number] CARDIAC [facility] placement<sup>1</ sup>
--- OUTSIDE RECORDS SUMMARY | 2018-07-22 20:36 | XMS REPORT | Summary of Care ---
:1955 Author Organization [facility] Address [address] [place] [id number]- Encounter [facility] [employer](SHANNAN) [id number] Date(s): 11/11/15 - 11/18/[address] [address]- [facility] Discharge Disposition: Home Attending Physician: Carlos Enrique Boo MD Admitting Physician: Carlos Enrique Boo MD Vital Signs Most recent to oldest 1 2 3 [Reference Range]: Height 175.26 cm (11/11/15 8:11 PM) Temperature Oral [96.4-99.1 98.0 DegF 98.0 DegF 98.6 DegF DegF] (11/18/15 8:00 AM) (11/18/15 12:00 AM) (11/17/15 4:00 PM) Blood Pressure [90-140/60-90 152/108 mmHg mmHg] *HI* (11/18/15 12:10 PM) Systolic Blood Pressure 159 mmHg 150 mmHg [90-140 mmHg] *HI* *HI* (11/18/15 8:00 AM) (11/18/15 12:00 AM) Diastolic Blood Pressure 107 mmHg 99 mmHg [60-90 mmHg] *HI* *HI* (11/18/15 8:00 AM) (11/18/15 12:00 AM) Respiratory Rate [14-20 20 BRMIN 20 BRMIN 20 BRMIN BRMIN] (11/18/15 8:00 AM) (11/18/15 12:00 AM) (11/17/15 8:00 PM) Peripheral Pulse Rate 66 bpm 64 bpm 59 bpm [60-100 bpm] (11/18/15 12:10 PM) (11/18/15 8:00 AM) *LOW* (11/18/15 12:00 AM) Weight 87.443 kg (11/11/15 8:11 PM) Body Mass Index 28.47 m2 (11/11/15 8:11 PM) Problem List Condition Effective Dates Status Health Status Informant Anemia(Confirmed)1 01/07/15 Resolved Cerebrovascular accident 12/17/14 Resolved (stroke)(Confirmed)2 Dyslipidemia(Confirmed) Active Hypertension(Confirmed) Resolved Hypertension(Confirmed) Active 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) CT (myocardial Resolved infarction)(Confirmed) 1TRANSFER FROM [facility]D/C 12/06 Allergies, Adverse Reactions, Alerts Substance Reaction Severity Status NKDA Active Medications amLODIPine 5 mg, 1 tab, Route: PO, Drug form: TAB, Daily, Dosing Weight 87.443, kg, Priority: NOW, Start date: 11/17/15 9:20:00 CDT, Duration: 30 day, Stop date: 9:00:00 CDT Notes: (Same as: Norvasc) Start Date: 11/17/15 Stop Date: 11/18/15 Status: DiscontinuedamLODIPine 5 mg oral tablet 5 mg=1 tab, PO, Daily, # 30 tab, 0 Refill(s) Start Date: 11/17/15 Status: Orderedaspirin 81 mg tablet, enteric coated 81 mg, 1 tab, Route: PO, Drug form: ECTAB, Daily, Dosing Weight 80.5, kg, Start date: 11/12/15 9:00:00 CDT, Duration: 30 day, Stop date: 12/11/15 9:00:00 CDT Notes: Do not crush or chew.(Same As: Ecotrin) Start Date: 11/12/15 Stop Date: 11/18/15 Status: Discontinuedaspirin 81 mg tablet, enteric coated 81 mg=1 tab, PO, Daily, # 30 tab, 0 Refill(s) Start Date: 11/17/15 Status: Orderedatorvastatin 40 mg oral tablet 40 mg=1 tab, PO, Bedtime, # 30 tab, 0 Refill(s) Start Date: 11/17/15 Status: Orderedcarvedilol 25 mg oral tablet 25 mg=1 tab, PO, Q12H, # 60 tab, 0 Refill(s) Start Date: 11/17/15 Status: OrderedCipro 500 mg, 1 tab, Route: PO, Drug form: TAB, [id number], Dosing Weight 92.813, kg, Start date: 11/11/15 21:00:00 CDT, Duration: 7 day, Stop date: 11/18/15 9:00:00 CDT Notes: May interfere w/enteral feedings - Take 1 hr before or 2 hrs after antacids, dairy pdt & minerals. On empty stomach. Start Date: 11/11/15 Stop Date: 11/14/15 Status: DiscontinuedcloNIDine 0.1 mg oral tablet 0.1 mg, 1 tab, Route: PO, Drug form: TAB, TID, Dosing Weight 87.443, kg, PRN Elevated BP, SBP > 180 or DBP > 100, Start date: 11/12/15 14:46:00 CDT, Duration : 30 day, Stop date: 12/12/15 14:45:00 CDT Notes: (Same As: Ashwin) Start Date: 11/12/15 Stop Date: 11/18/15 Status: DiscontinuedcloNIDine 0.1 mg oral tablet 0.1 mg, 1 tab, Route: PO, Drug form: TAB, ONCE, Start date: 11/12/15 15:00:00 CDT, Stop date: 11/12/15 15:00:00 CDT Notes: (Same As: Ashwin) Start Date: 11/12/15 Stop Date: 11/12/15 Status: Completedclopidogrel 75 mg oral tablet 75 mg=1 tab, PO, Daily, # 30 tab, 0 Refill(s) Start Date: 11/17/15 Status: OrderedCoreg 6.25 mg, 1 tab, Route: PO, Drug form: TAB, Q12H, Dosing Weight 92.813, kg, Start date: 11/11/15 21:00:00 CDT, Duration: 30 day, Stop date: 12/11/15 9:00: 00 CDT Notes: Give with food. (Same As: Patricia) Start Date: 11/11/15 Stop Date: 11/12/15 Status: DiscontinuedCoreg 25 mg, 1 tab, Route: PO, Drug form: TAB, Q12H, Dosing Weight 92.813, kg, Start date: 11/13/15 21:00:00 CDT, Duration: 30 day, Stop date: 12/13/15 9:00:00 CDT Notes: Give with food. (Same As: Coreg) Start Date: 11/13/15 Stop Date: 11/18/15 Status: DiscontinuedCoreg 12.5 mg, 1 tab, Route: PO, Drug form: TAB, Q12H, Dosing Weight 92.813, kg, Start date: 11/12/15 21:00:00 CDT, Duration: 30 day, Stop date: 12/12/15 9:00: 00 CDT Notes: Give with food. (Same As: Coreg) Start Date: 11/12/15 Stop Date: 11/13/15 Status: DiscontinuedDilantin 300 mg, 3 cap, Route: PO, Drug form: ERCAP, QPM, Dosing Weight 92.813, kg, Start date: 11/12/15 17:00:00 CDT, Duration: 30 day, Stop date: 12/11/15 17:00: 00 CDT Notes: (Same as: Dilantin) Do not open, crush, or chew. Start Date: 11/12/15 Stop Date: 11/18/15 Status: DiscontinuedDilantin 100 mg oral capsule, extended release 300 mg=3 cap, PO, QPM, # 90 cap, 0 Refill(s) Start Date: 11/17/15 Status: Ordereddocusate 100 mg, 1 cap, Route: PO, Drug form: CAP, BID, Dosing Weight 88.182, kg, Start date: 11/12/15 9:00:00 CDT, Duration: 30 day, Stop date: 12/11/15 17:00:00 CDT Notes: (Same as: Colace) (Do Not Crush) Start Date: 11/12/15 Stop Date: 11/18/15 Status: Discontinueddocusate sodium 100 mg oral capsule 100 mg=1 cap, PO, BID, # 60 cap, 0 Refill(s) Start Date: 11/17/15 Status: OrderedDulcolax Laxative 10 mg, 1 supp, Route: WA, Drug form: SUPP, Daily, Dosing Weight 80.5, kg, PRN Constipation, Start date: 11/11/15 19:59:00 CDT, Duration: 30 day, Stop date: 19:58:00 CDT Notes: (Same As: Dulcolax, Bisco-Lax) Start Date: 11/11/15 Stop Date: 11/18/15 Status: Discontinuedgabapentin 100 mg, 1 cap, Route: PO, Drug form: CAP, Q8H, Dosing Weight 87.443, kg, Start date: 11/18/15 0:00:00 CDT, Duration: 30 day, Stop date: 12/17/15 16:00:00 CDT Notes: (Same as: Neurontin) Start Date: 11/18/15 Stop Date: 11/15/15 Status: Canceledgabapentin 100 mg, Route: PO, Drug form: CAP, Q8H, Dosing Weight 87.443, kg, Start date: 0:00:00 CDT, Stop date: 11/18/15 16:00:00 CDT Start Date: 11/16/15 Stop Date: 11/15/15 Status: Canceledgabapentin 100 mg, 1 cap, Route: PO, Drug form: CAP, Q8H-06, Dosing Weight 87.443, kg, Start date: 11/15/15 22:00:00 CDT, Duration: 30 day, Stop date: 12/15/15 14:00: 00 CDT Notes: (Same as: Neurontin) Start Date: 11/15/15 Stop Date: 11/18/15 Status: Discontinuedgabapentin 100 mg oral capsule 100 mg=1 cap, PO, Q8H-06, # 90 cap, 0 Refill(s) Start Date: 11/17/15 Status: OrderedhydrALAZINE 10 mg, 1 tab, Route: PO, Drug form: TAB, Q6H, Dosing Weight 87.443, kg, PRN Hypertension, Start date: 11/15/15 17:01:00 CDT, Duration: 30 day, Stop date: 17:00:00 CDT Notes: (Same as: Apresoline) May interfere w/enteral feedings.Take With Food Start Date: 11/15/15 Stop Date: 11/18/15 Status: DiscontinuedLipitor 40 mg, 1 tab, Route: PO, Drug form: TAB, Bedtime, Dosing Weight 92.813, kg, Start date: 11/11/15 21:00:00 CDT, Duration: 30 day, Stop date: 12/10/15 21:00: 00 CDT Notes: (Same as: Lipitor) Start Date: 11/11/15 Stop Date: 11/18/15 Status: Discontinuedlisinopril 20 mg oral tablet 20 mg=1 tab, PO, Daily, # 30 tab, 0 Refill(s) Start Date: 11/17/15 Status: OrderedLovenox 40 mg, 0.4 mL, Route: SUB-Q, Drug form: INJ, [id number], Dosing Weight 80.5, kg, Start date: 11/12/15 9:00:00 CDT, Duration: 30 day, Stop date: 12/11/15 9:00:00 CDT Notes: (Same as: Lovenox) Start Date: 11/12/15 Stop Date: 11/18/15 Status: DiscontinuedLovenox 40 mg, 0.4 mL, Route: SUB-Q, Drug form: INJ, [id number], Dosing Weight 80.5, kg, Start date: 11/19/15 9:00:00 CDT, Duration: 30 day, Stop date: 12/18/15 9:00:00 CDT Notes: (Same as: Lovenox) Start Date: 11/19/15 Stop Date: 11/18/15 Status: CanceledNS 0.45% IV 1,000 mL 1,000 mL, Rate: 75 ml/hr, Infuse over: 13.3 hr, Route: IV, Dosing Weight 87.443 kg, Total Volume: 1,000, Start date: 11/16/15 14:08:00 CDT, Duration: 30 day, Stop date: 12/16/15 14:07:00 CDT Start Date: 11/16/15 Stop Date: 11/18/15 Status: DiscontinuedPepcid 20 mg, 1 tab, Route: PO, Drug form: TAB, Q12H, Dosing Weight 92.813, kg, Start date: 11/11/15 21:00:00 CDT, Duration: 30 day, Stop date: 12/11/15 9:00:00 CDT Notes: (Same as: Pepcid) Start Date: 11/11/15 Stop Date: 11/18/15 Status: DiscontinuedPepcid 20 mg oral tablet 20 mg=1 tab, PO, Q12H, # 60 tab, 0 Refill(s) Start Date: 11/17/15 Status: OrderedPlavix 75 mg, 1 tab, Route: PO, Drug form: TAB, Daily, Dosing Weight 92.813, kg, Start date: 11/12/15 9:00:00 CDT, Duration: 30 day, Stop date: 12/11/15 9:00:00 CDT Notes: (Same As: Plavix) Start Date: 11/12/15 Stop Date: 11/18/15 Status: DiscontinuedPrinivil 20 mg, 1 tab, Route: PO, Drug form: TAB, Daily, Dosing Weight 92.813, kg, Start date: 11/12/15 9:00:00 CDT, Duration: 30 day, Stop date: 12/11/15 9:00:00 CDT Notes: (Same as: Prinivil, Zestril) Start Date: 11/12/15 Stop Date: 11/18/15 Status: DiscontinuedRitalin 5 mg, 1 tab, Route: PO, Drug form: TAB, BID-01-30, Dosing Weight 87.443, kg, Start date: 11/18/15 7:00:00 CDT, Duration: 30 day, Stop date: 12/17/15 12:00: 00 CDT Notes: (Same as:Ritalin) Start Date: 11/18/15 Stop Date: 11/17/15 Status: CanceledRitalin 2.5 mg, 0.5 tab, Route: PO, Drug form: TAB, BID-01-30, Dosing Weight 87.443, kg , Start date: 11/16/15 7:00:00 CDT, Duration: 30 day, Stop date: 12/15/15 12:00: 00 CDT Notes: (Same as:Ritalin) Start Date: 11/16/15 Stop Date: 11/17/15 Status: DiscontinuedRobitussin-DM 10 mL, Route: PO, Drug Form: SYRP, Dosing Weight 80.5, kg, Q4H, PRN Cough, Start date: 11/11/15 19:54:00 CDT, Duration: 30 day, Stop date: 12/11/15 19:53: 00 CDT Notes: (dextromethorphan-guaifenesin 10-100mg/5ml 10 ml oral SOLN ud) (Same as: Robitussin DM) Start Date: 11/11/15 Stop Date: 11/18/15 Status: DiscontinuedSaline Flush 0.9% 10 ml, Route: IVP, Drug Form: INJ, Dosing Weight 88.182, kg, PRN, PRN Line Flush , Start date: 11/11/15 20:47:00 CDT, Duration: 30 day, Stop date: 12/11/15 20:46 :00 CDT Notes: (Same as: BD Posiflush) Start Date: 11/11/15 Stop Date: 11/18/15 Status: DiscontinuedSaline Flush 0.9% 10 ml, Route: IVP, Drug Form: INJ, Dosing Weight 88.182, kg, Q12H, Start date: 11/11/15 21:00:00 CDT, Duration: 30 day, Stop date: 12/11/15 9:00:00 CDT Notes: (Same as: BD Posiflush) Start Date: 11/11/15 Stop Date: 11/18/15 Status: DiscontinuedSodium Chloride 0.9% IV 1,000 mL 1,000 mL, Rate: 100 ml/hr, Infuse over: 10 hr, Route: IV, Dosing Weight 87.443 kg, Total Volume: 1,000, Start date: 11/14/15 9:42:00 CDT, Duration: 30 day, Stop date: 12/14/15 9:41:00 CDT Start Date: 11/14/15 Stop Date: 11/16/15 Status: DiscontinuedTylenol 650 mg, 2 tab, Route: PO, Drug form: TAB, Q4H, Dosing Weight 80.5, kg, PRN For Temp > 100.4 F, Start date: 11/11/15 19:58:00 CDT, Duration: 30 day, Stop date: 12/11/15 19:57:00 CDT Notes: Do not exceed 4 gm/day. (Same as: Tylenol) Start Date: 11/11/15 Stop Date: 11/18/15 Status: Discontinued Results ELECTROLYTES Most recent to oldest 1 2 3 [Reference Range]: Sodium Lvl [135-145 mEq/L] 140 mEq/L 140 mEq/L 139 mEq/L (11/18/15 5:49 AM) (11/17/15 2:46 PM) (11/16/15 12:52 PM) Potassium Lvl [3.5-5.1 3.9 mEq/L 4.3 mEq/L 4.3 mEq/L mEq/L] (11/18/15 5:49 AM) (11/17/15 2:46 PM) (11/16/15 12:52 PM) Chloride Lvl [95-109 mEq/L] 109 mEq/L 109 mEq/L 110 mEq/L (11/18/15 5:49 AM) (11/17/15 2:46 PM) *HI* (11/16/15 12:52 PM) CO2 [24-32 mEq/L] 24 mEq/L 22 mEq/L 22 mEq/L (11/18/15 5:49 AM) *LOW* *LOW* (11/17/15 2:46 PM) (11/16/15 12:52 PM) AGAP [10.0-20.0 mEq/L] 10.9 mEq/L 13.3 mEq/L 11.3 mEq/L (11/18/15 5:49 AM) (11/17/15 2:46 PM) (11/16/15 12:52 PM) CHEM PANEL Most recent to oldest 1 2 3 [Reference Range]: Creatinine Lvl [0.50-1.40 1.60 mg/dL 1.50 mg/dL 1.80 mg/dL mg/dL] *HI* *HI* *HI* (11/18/15 5:49 AM) (11/17/15 2:46 PM) (11/16/15 12:52 PM) eGFR 46 mL/min/1.73m2 1 50 mL/min/1.73m2 2 40 mL/min/1.73m2 3 *NA* *NA* *NA* (11/18/15 5:49 AM) (11/17/15 2:46 PM) (11/16/15 12:52 PM) BUN [7-22 mg/dL] 21 mg/dL 23 mg/dL 28 mg/dL (11/18/15 5:49 AM) *HI* *HI* (4/28/16 2:46 PM) (11/16/15 12:52 PM) B/C Ratio [6-25] 16 (11/14/15 6:31 AM) Glucose Lvl [70-99 mg/dL] 88 mg/dL 84 mg/dL 87 mg/dL (11/18/15 5:49 AM) (11/17/15 2:46 PM) (11/16/15 12:52 PM) Total Protein [6.4-8.4 g/dL] 7.3 g/dL (11/14/15 6:31 AM) Albumin Lvl [3.5-5.0 g/dL] 3.1 g/dL *LOW* (11/14/15 6:31 AM) Globulin [2.0-4.0 g/dL] 4.2 g/dL *HI* (11/14/15 6:31 AM) A/G Ratio [0.7-1.6] 0.7 (11/14/15 6:31 AM) Calcium Lvl [8.5-10.5 mg/dL] 7.9 mg/dL 8.4 mg/dL 8.0 mg/dL *LOW* *LOW* *LOW* (11/18/15 5:49 AM) (11/17/15 2:46 PM) (11/16/15 12:52 PM) Phosphorus [2.5-4.5 mg/dL] 3.5 mg/dL (11/14/15 6:31 AM) Magnesium Lvl [1.8-2.4 2.1 mg/dL mg/dL] (11/14/15 6:31 AM) ALT [0-65 unit/L] 31 unit/L (11/14/15 6:31 AM) AST [0-37 unit/L] 22 unit/L (11/14/15 6:31 AM) Alk Phos [39-136 unit/L] 46 unit/L (11/14/15 6:31 AM) Bili Total [0.2-1.3 mg/dL] 0.4 mg/dL (11/14/15 6:31 AM) 1Result Comment: The eGFR is calculated using the CKD-EPI formula. In most young , healthy individualsthe eGFR will be >90 mL/min/1.73m2. The eGFR declines with age. An eGFR of 60-89 may be normal in some populations, particularly the elderly, for whom the CKD-EPI formula has not been extensively validated. Use of the eGFR is not recommended in the following populations: Individuals with unstable creatinine concentrations, including patients and those with serious co-morbid conditions. Patients with extremes in muscle mass or diet. The data above are obtained from the National Kidney Disease Education Program ( NKDEP) which additionally recommends that when the eGFR is used in patients with extremes of body mass index for purposesof drug dosing, the eGFR should be multiplied by the estimated BMI.2Result Comment: The eGFR is calculated using the CKD-EPI formula. In most young, healthy individualsthe eGFR will be >90 mL/ min/1.73m2. The eGFR declines with age. An eGFR of 60-89 may be normal in some populations, particularly the elderly, for whom the CKD-EPI formula has not been extensively validated. Use of the eGFR is not recommended in the following populations: Individuals with unstable creatinine concentrations, including patients and those with serious co-morbid conditions. Patients with extremes in muscle mass or diet. The data above are obtained from the National Kidney Disease Education Program ( NKDEP) which additionally recommends that when the eGFR is used in patients with extremes of body mass index for purposesof drug dosing, the eGFR should be multiplied by the estimated BMI.3Result Comment: The eGFR is calculated using the CKD-EPI formula. In most young, healthy individualsthe eGFR will be >90 mL/ min/1.73m2. The eGFR declines with age. An eGFR of 60-89 may be normal in some populations, particularly the elderly, for whom the CKD-EPI formula has not been extensively validated. Use of the eGFR is not recommended in the following populations: Individuals with unstable creatinine concentrations, including patients and those with serious co-morbid conditions. Patients with extremes in muscle mass or diet. The data above are obtained from the National Kidney Disease Education Program ( NKDEP) which additionally recommends that when the eGFR is used in patients with extremes of body mass index for purposesof drug dosing, the eGFR should be multiplied by the estimated BMI.TOXICOLOGY Most recent to oldest [Reference Range]: 1 2 3 Phenytoin Free [1.00-2.00 ug/ml] 0.92 ug/ml *LOW* (11/15/15 6:17 AM) URINE CHEM Most recent to oldest [Reference Range]: 1 2 3 U Creatinine 140.00 mg/dL *NA* (11/16/15 1:57 AM) U Protein 32.2 mg/dL *NA* (11/16/15 1:57 AM) U Prot/Creat 0.2 *NA* (11/16/15 1:57 AM) U Eos [None Seen] None Seen (11/16/15 1:57 AM) URINE AND STOOL Most recent to oldest [Reference Range]: 1 2 3 UA Turbidity [Clear] Clear (11/16/15 1:57 AM) UA Color [Yellow] Light Yellow *NA* (11/16/15 1:57 AM) UA pH [5.0-8.0] 5.0 (11/16/15 1:57 AM) UA Spec Grav [<=1.030] 1.015 (11/16/15 1:57 AM) UA Glucose [Negative mg/dL] 50 mg/dL *ABN* (11/16/15 1:57 AM) UA Blood [Negative] Small *ABN* (11/16/15 1:57 AM) UA Ketones [Negative mg/dL] Negative mg/dL *NA* (11/16/15 1:57 AM) UA Protein [Negative mg/dL] Negative mg/dL (11/16/15 1:57 AM) UA Urobilinogen [0.1-1.0 mg/dL] <=1.0 mg/dL *NA* (11/16/15 1:57 AM) UA Bili [Negative] Negative *NA* (11/16/15 1:57 AM) UA Leuk Est [Negative] Negative (11/16/15 1:57 AM) UA Nitrite [Negative] Negative (11/16/15 1:57 AM) UA WBC [0-5 /HPF] 2 /HPF (11/16/15 1:57 AM) UA RBC [0-2 /HPF] 1 /HPF (11/16/15 1:57 AM) UA Bacteria [None Seen /HPF] Occasional /HPF *NA* (11/16/15 1:57 AM) UA Sq Epi [Few /LPF] Occasional /LPF *NA* (11/16/15 1:57 AM) UA Hyal Cast [0-2 /LPF] 9 /LPF *HI* (11/16/15 1:57 AM) UA Mucus [None Seen /LPF] Few /LPF *NA* (11/16/15 1:57 AM) IMMUNOLOGY Most recent to oldest [Reference Range]: 1 2 3 Prealbumin [18.0-45.0 mg/dL] 21.8 mg/dL (11/14/15 6:31 AM) HEMATOLOGY Most recent to oldest 1 2 3 [Reference Range]: WBC [3.7-10.4 K/CMM] 5.0 K/CMM 6.6 K/CMM 4.4 K/CMM (11/18/15 5:49 AM) (11/16/15 7:55 AM) (11/14/15 6:31 AM) RBC [4.70-6.10 M/CMM] 4.50 M/CMM 5.05 M/CMM 5.03 M/CMM *LOW* (11/16/15 7:55 AM) (11/14/15 6:31 AM) (11/18/15 5:49 AM) Hgb [14.0-18.0 g/dL] 14.4 g/dL 16.2 g/dL 16.1 g/dL (11/18/15 5:49 AM) (11/16/15 7:55 AM) (11/14/15 6:31 AM) Hct [42.0-54.0 %] 42.8 % 48.9 % 48.5 % (11/18/15 5:49 AM) (11/16/15 7:55 AM) (11/14/15 6:31 AM) MCV [80.0-94.0 fL] 95.2 fL 96.9 fL 96.4 fL *HI* *HI* *HI* (11/18/15 5:49 AM) (11/16/15 7:55 AM) (11/14/15 6:31 AM) MCH [27.0-31.0 pg] 32.0 pg 32.2 pg 31.9 pg *HI* *HI* *HI* (11/18/15 5:49 AM) (11/16/15 7:55 AM) (11/14/15 6:31 AM) MCHC [32.0-36.0 g/dL] 33.6 g/dL 33.2 g/dL 33.1 g/dL (11/18/15 5:49 AM) (11/16/15 7:55 AM) (11/14/15 6:31 AM) RDW [11.5-14.5 %] 13.7 % 13.9 % 13.7 % (11/18/15 5:49 AM) (11/16/15 7:55 AM) (11/14/15 6:31 AM) Platelet [133-450 K/CMM] 144 K/CMM 144 K/CMM 99 K/CMM (11/18/15 5:49 AM) (11/16/15 7:55 AM) *LOW* (11/14/15 6:31 AM) MPV [7.4-10.4 fL] 10.3 fL 10.6 fL 11.1 fL (11/18/15 5:49 AM) *HI* *HI* (11/16/15 7:55 AM) (11/14/15 6:31 AM) Segs [45.0-75.0 %] 44.7 % 32.8 % 46.6 % *LOW* *LOW* (11/14/15 6:31 AM) (11/18/15 5:49 AM) (11/16/15 7:55 AM) Lymphocytes [20.0-40.0 %] 40.4 % 45.6 % 22.0 % *HI* *HI* (11/14/15 6:31 AM) (11/18/15 5:49 AM) (11/16/15 7:55 AM) Monocytes [2.0-12.0 %] 10.0 % 15.7 % 23.6 % (11/18/15 5:49 AM) *HI* *HI* (11/16/15 7:55 AM) (11/14/15 6:31 AM) Eosinophils [0.0-4.0 %] 3.5 % 4.6 % 6.6 % (11/18/15 5:49 AM) *HI* *HI* (11/16/15 7:55 AM) (11/14/15 6:31 AM) Basophils [0.0-1.0 %] 1.4 % 1.3 % 1.2 % *HI* *HI* *HI* (11/18/15 5:49 AM) (11/16/15 7:55 AM) (11/14/15 6:31 AM) Segs-Bands # [1.5-8.1 K/CMM] 2.2 K/CMM 2.2 K/CMM 2.1 K/CMM (11/18/15 5:49 AM) (11/16/15 7:55 AM) (11/14/15 6:31 AM) Lymphocytes # [1.0-5.5 2.0 K/CMM 3.0 K/CMM 1.0 K/CMM K/CMM] (11/18/15 5:49 AM) (11/16/15 7:55 AM) (11/14/15 6:31 AM) Monocytes # [0.0-0.8 K/CMM] 0.5 K/CMM 1.0 K/CMM 1.0 K/CMM (11/18/15 5:49 AM) *HI* *HI* (11/16/15 7:55 AM) (11/14/15 6:31 AM) Eosinophils # [0.0-0.5 0.2 K/CMM 0.3 K/CMM 0.3 K/CMM K/CMM] (11/18/15 5:49 AM) (11/16/15 7:55 AM) (11/14/15 6:31 AM) Basophils # [0.0-0.2 K/CMM] 0.1 K/CMM 0.1 K/CMM 0.1 K/CMM (11/18/15 5:49 AM) (11/16/15 7:55 AM) (11/14/15 6:31 AM) Plt Morph Normal (11/18/15 5:49 AM) Immunizations Vaccine Date Refusal Reason pneumococcal 23-valent vaccine 01/09/15 Procedures Procedure Date Related Diagnosis Body Site Hip replacement 2011 Stent placement1 1CARDIAC Social History Social History Type Response Substance Abuse Use: Current. Type: Marijuana. Recreational Drug Route: Inhaled. Previous Treatment: None. IV drug use: No. Ready to change: No.1 Alcohol Current, Type Beer. Alcohol use interferes with work or home: No. Drinks more than intended: No. Others hurt by drinking: No. Household alcohol concerns: No. Smoking Status Never smoker; Type: Cigarettes; Previous treatment: None; Ready to change: Yes; Concerns about tobacco use in household: No; Exposure to Tobacco Smoke None; Cigarette Smoking Last 365 Days No; Reg Smoking Cessation Counseling Yes 1USES MARIJUANA Assessment and Plan Extracted from: Title: Rehab Discharge Summary Author: Armani Barker MD Date: 11/18/15 Patient: DAKOTAH JAEGER JR Age: 59 years Sex: Male : 1955 Associated Diagnoses: None Author: Armani Barker MD Discharge Information DISCHARGE DIAGNOSIS CVA History of Present Illness 59yo right hand dominant M with history of CVA and admission for right side weakness and concern for CVA. PMH: CVA, CT, htn, hyperlipidemia # CVA, acute. Patient also reports prior CVA 2014 but regardless he has not been working for many years. 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 On my examination, he has no focal weakness in the muscles I tested. # R hip pain. Patient reports he had a R hip replacement 2011. Follow up possible functional deficits due R hip pain. 11/11 - Patient reports his right hip pain is only occasional, but is not bothering him at present. # Abnormality of gait. Patient with functional deficits due to several impairments. Follow up therapy interventions. 11/11 - Patient noted yesterday to require CGA for ambulating 200 feet with RW. Continue PT to improve gait quality and distance. # Abnormality of posture: 11/11 - Patient noted yesterday to require Min A - CGA for transfers, and Min A for grooming and upper body dressing. Continue PT and OT to improve postural control to improve transfers and ADLs. # Seizure disorder. On dilantin. Follow up transition to [facility] if OK by neurology or primary team. # Cognitive impairment / Aphasia: 11/11 - Patient not oriented to type of building nor the year. He also have impaired fluency > comprehension of speech. Additionally, he has significant difficulty following two-step commands on examination. ST to work on evaluating/treating cognition and aphasia. # GI/: 11/11 - Patient denies incontinence of bowel/bladder, and reports his last BM was this morning. He may, however, have neurogenic bowel/bladder. If noted to be incontinent of bladder, would sta rt timed voids q4h while awake and check PVRs with bladder scanner, with straight catheterization for PVRs > 250 mL. # DVT PPx: 11/11 - Continue Lovenox. Patient has an increased risk for DVT while hospitalized given limited mobility. Histories Past Medical History: Resolved Anemia ([id number]): Onset on 01/07/2015 at 59 years. Resolved. Comments: 01/08/2015 CDT 23:25 Ernesto Alston RN TRANSFER FROM [facility] Cerebrovascular accident (stroke) ([id number]): Onset on 12/17/2014 at 59 years. Resolved. Comments: 01/08/2015 CDT 23:21 Ernesto Alston RN D/C 12/06 CT (myocardial infarction) ([id number]): Resolved. Loss of vision of right eye ([id number]): Resolved. Hypertension ([id number]): Resolved. Family History: Type 1 diabetes mellitus Mother High blood pressure Father Renal disease Mother Procedure history: Hip replacement ([id number]) in 2010 at 55 Years. Stent placement ([id number]). Comments: 01/08/2015 23:33 - Ernesto Jin RN CARDIAC Social History Social & Psychosocial Habits Alcohol 11/11/2015 Use: Current Type: Beer Has alcohol use interfered with work or home life? No Do you ever drink more than intended? No Has anyone been hurt or at risk by your drinking? No Concerns about alcohol use in household: No Substance Abuse 11/11/2015 Use: Current Type: Marijuana Route Inhaled Previous treatment: None IV drug use: No Ready to change: No Comment: USES MARIJUANA - 01/08/2015 23:38 - Ernesto Jin RN Tobacco 11/11/2015 Use: Never smoker Type: Cigarettes Previous treatment: None Ready to change: Yes Concerns about tobacco use in household: No Exposure to Tobacco Smoke None Cigarette Smoking Last 365 Days No Reg Smoking Cessation Counseling Yes . Reviewed as documented in chart. No interval change. Physical Examination VS/Measurements Vital Signs (last 24 hrs) Last Charted Temp Oral 98.0 DegF (NOV 17:) Heart Rate Peripheral 64 bpm (NOV 17:) Resp Rate 20 BRMIN (NOV 17:) SBP H 159mmHg (NOV 17:) DBP H 107mmHg (NOV 17:) General: No acute distress, Lying in bed. HENT: Normocephalic, Moist oral mucosa. Respiratory: Lungs are clear to auscultation, Respirations are non-labored. Cardiovascular: Normal rate, Regular rhythm. Gastrointestinal: Soft, Non-tender, Non-distended. Integumentary: Clean, Dry, Warm, No rash. Psychiatric: Cooperative, Appropriate mood & affect. MSK: 11/23 with bilateral EF, WE, KE and ADF. He has good muscle bulk in the major muscle groups of the limbs. Neuro: Awake and alert, speech with impaired fluency > comprehension. He does not recall seeing me last weekend. Hospital Course # CVA, acute. Patient also reports prior CVA 2014 but regardless he has not been working for many years. # R hip pain. Patient reports he had a R hip replacement 2011. Follow up possible functional deficits due R hip pain. # Hallucinations. 11/13 - Discussed case with psychology and patient. It seems that patient has been seeing persons on his right side that do not exist. Also having some sensory changes. Will consult psychiatry for assistance. 11/14 - Appreciate Psych recs. Will add ritalin low dose. 11/15 - Follow up participation with therapies. # Abnormal sensation. 11/14 - Will add gabapentin. # Renal Failure. 11/14 - Will consult renal for rising Creatinine. 11/15 - Appreciate renal recs. 11/17 - Creatinine stable. Per RN's discussion with NUSRAT Ochoa to discontinue IV fluids. Encouraged patient to drink fluids and to follow up with his primary care physician within one week after discharge for follow up of kidney function. # Abnormality of gait. Patient with functional deficits due to several impairments. Follow up therapy interventions. 11/17 - Most recently noted to be Independent with ambulating 769 feet without assistive device, and Mod I for negotiating 16 steps with bilateral handrails. # Seizure disorder. On dilantin. Follow up transition to [facility] if OK by neurology or primary team. 11/16 - Since patient had witnessed seizure prior to admission, but EEG negative will continue dilantin for now. Patient to follow up with outpatient neurology (Bhaskar) and adjust as tolerated. # Blood in stool: 11/17 - Per my discussion with RN this morning, patient apparently had blood in stool, but patient reports this is ongoing and is due to his hemorrhoids. He denies any lightheadedness. CBC this morning showed Hgb 14.4. Discussed with him to follow up with his primary care physician regarding this within one week after discharge. # HTN: 11/17 - Uncontrolled at times, has occasionally received PRN clonidine, but per my discussion with RN, this was due to him watching "scary movies on TV, " as his BP otherwise has been controlled. Patient will need to follow up with his primary care physician within one week after discharge regarding his BP. # Disposition. Patient will benefit from aggressive inpatient rehab prior to returning home with family support. They live in [facility]. Follow up inpatient rehab choice and approval process. Will likely be a short rehab stay. 11/14 - Impaired sensation and illogical thought patterns. Needing cues for most tasks. Good strength. "Walking wounded". Has word finding. Serious word finding and anomia. Will remain at supervision lev due to cognitive deficits. If 24h care is available, can d/c soon. Impulsive with poor safety awareness. Plan d/c date 11/17. D/c with nurse, TEREOT, HHST, ADMISSIONS ASSISTANT. DME: [facility]. Follow up possibility of capacity assessment. Poor reliability. 11/16 - Appears that patient will have 24h supervision at home. Results Review Admission FIM Scores: OT Current Status OT Treatment Recommendations OT Treatment Recommendations: Pt is a 59 year old male with PMH of CVAs, HTN, CT, vision impairments, and R hip replacement who recently experienced a CVA and tonic clonic seizures and now presents with aphasia, apraxia, and cognitive deficits. Pt was not oriented to date or situation and had difficulty following several testing commands (demonstrations , explanations, WRANGELL assist). Pt is suspected to h ave pre-morbid right homonymous hemianopsia; saccades and smooth pursuits testing WNL and pt denies glasses. Pt was able to perform most ADLs with close supervision/setup and min cueing while using RW w ith CGA to ambulate. Due to persistent hypertension during the evaluation, the RN suggested a bed bath versus shower. Prior to most recent CVA, pt was not working and lives in a 1SH with his son-in-law, responsible for some IADLs and reports that he sometimes drives. Pt to benefit from education regarding vision requirements for driving and mandatory waiting period following seizure activity. BUE AROM and strength WFL. Pt to benefit from skilled OT services to address the above listed impairements in preparation for return to independent living and IADLs. Performed: 11/12/15 11:40 ADL Eating: Supervision or Setup Performed: 11/14/15 15:17 Grooming: Supervision or Setup Performed: 11/14/15 15:17 Grooming Descriptors: Standing Performed: 11/14/15 15:17 Bathing: Supervision or Setup Performed: 11/14/15 15:17 Bathing Descriptors: Standing without support, Supported short sit Performed: 11/14/15 15:17 Bathing Equipment: Grab bars, Hand held shower, Shower chair w/back Performed : 11/14/15 15:17 Upper Extremity Dressing: Supervision or Setup Performed: 11/14/15 15:17 Lower Extremity Dressing: Supervision or Setup Performed: 11/14/15 15:17 Dressing Descriptors: Standing, Unsupported short sit Performed: 11/14/15 15: 17 Toileting: Supervision or Setup Performed: 11/14/15 15:17 Toileting Descriptors: Sitting without back support Performed: 11/14/15 15:17 Toilet Transfer: Supervision or Setup Performed: 11/14/15 15:17 Shower Transfer: Supervision or Setup Performed: 11/14/15 15:17 Vision Vision Status: Impaired Performed: 11/12/15 11:40 PT Current Status PT Treatment Recommendations PT Treatment Recommendations: patient will benefit from skilled P.T. services to improve function prior to d/c home with home health P.T. Performed: 11:30 Mobility Transfer Bed to and From Chair: Minimal contact assistance Performed: 11:30 Ambulation Level Surfaces Ambulation Device: Walker, rolling Performed: 11/14/15 09:43 Ambulation Distance: 356 ft Performed: 11/14/15 09:43 Ambulation Uneven Surfaces Locomotion Walk: Minimal contact assistance Performed: 11/14/15 09:43 Stairs Technique: Step over step Performed: 11/14/15 09:43 Number of Stairs Performed: 12 Performed: 11/14/15 09:43 Locomotion Stair: Minimal contact assistance Performed: 11/14/15 09:43 Bed,Chair,Wheelchair: Supervision or Setup Performed: 11/14/15 09:43 SENIOR ENVIRONMENTAL ENGINEER Current Status Severity Level Comprehension: Maximal prompting Performed: 11/14/15 10:49 Comprehension Mode: Auditory Performed: 11/14/15 10:49 Expression: Moderate prompting Performed: 11/14/15 10:49 Expression Mode: Vocal Performed: 11/14/15 10:49 Memory: Moderate prompting Performed: 11/14/15 10:49 Problem Solving: Maximal prompting Performed: 11/14/15 10:49 Social Interaction: Moderate prompting Performed: 11/14/15 10:49 Discharge FIM Scores: OT Current Status OT Treatment Recommendations OT Treatment Recommendations: Pt is a 59 year old male with PMH of CVAs, HTN, CT, vision impairments, and R hip replacement who recently experienced a CVA and tonic clonic seizures and now presents with aphasia, apraxia, and cognitive deficits. Pt was not oriented to date or situation and had difficulty following several testing commands (demonstrations , explanations, WRANGELL assist). Pt is suspected to h ave pre-morbid right homonymous hemianopsia; saccades and smooth pursuits testing WNL and pt denies glasses. Pt was able to perform most ADLs with close supervision/setup and min cueing while using RW w ith CGA to ambulate. Due to persistent hypertension during the evaluation, the RN suggested a bed bath versus shower. Prior to most recent CVA, pt was not working and lives in a 1SH with his son-in-law, responsible for some IADLs and reports that he sometimes drives. Pt to benefit from education regarding vision requirements for driving and mandatory waiting period following seizure activity. BUE AROM and strength WFL. Pt to benefit from skilled OT services to address the above listed impairements in preparation for return to independent living and IADLs. Performed: 11/12/15 11:40 ADL Eating: Complete independence Performed: 11/17/15 15:09 Grooming: Supervision or Setup Performed: 11/17/15 15:09 Grooming Descriptors: Standing Performed: 11/17/15 15:09 Bathing: Supervision or Setup Performed: 11/17/15 15:09 Bathing Descriptors: Standing without support, Supported short sit Performed: 11/17/15 15:09 Bathing Equipment: Grab bars, Hand held shower, Shower chair w/back Performed : 11/17/15 15:09 Upper Extremity Dressing: Supervision or Setup Performed: 11/17/15 15:09 Lower Extremity Dressing: Supervision or Setup Performed: 11/17/15 15:09 Dressing Descriptors: Standing, Unsupported short sit Performed: 11/17/15 15: 09 Toileting: Supervision or Setup Performed: 11/17/15 15:09 Toileting Descriptors: Sitting without back support Performed: 11/17/15 15:09 Toilet Transfer: Supervision or Setup Performed: 11/17/15 15:09 Shower Transfer: Supervision or Setup Performed: 11/17/15 15:09 Vision Vision Status: Impaired Performed: 11/12/15 11:40 PT Current Status PT Treatment Recommendations PT Treatment Recommendations: patient will benefit from skilled P.T. services to improve function prior to d/c home with home health P.T. Performed: 11:30 Mobility Transfer Bed to and From Chair: Modified independence Performed: 11/17/15 15: 24 Ambulation Level Surfaces Ambulation Device: None Performed: 11/17/15 15:24 Ambulation Distance: 769 ft Performed: 11/17/15 15:24 Ambulation Uneven Surfaces Locomotion Walk: Complete independence Performed: 11/17/15 15:24 Stairs Technique: Step over step Performed: 11/17/15 15:24 Number of Stairs Performed: 16 Performed: 11/17/15 15:24 Locomotion Stair: Modified independence Performed: 11/17/15 15:24 Bed,Chair,Wheelchair: Modified independence Performed: 11/17/15 15:24 SENIOR ENVIRONMENTAL ENGINEER Current Status Severity Level Comprehension: Maximal prompting Performed: 11/17/15 14:24 Comprehension Mode: Auditory Performed: 11/17/15 14:24 Expression: Moderate prompting Performed: 11/17/15 14:24 Expression Mode: Vocal Performed: 11/17/15 14:24 Memory: Moderate prompting Performed: 11/17/15 14:24 Problem Solving: Maximal prompting Performed: 11/17/15 14:24 Social Interaction: Modified independence Performed: 11/17/15 14:24 Discharge Plan Discharge Summary Plan Discharge Status: stable. Discharge instructions given: to patient. Discharge disposition: discharge to home with home health care. Prescriptions: reviewed with patient, written and given to patient. Instructions to patient Physical activity: Activity Allowed : Activity as tolerated, Ambulation allowed, Ambulation as tolerated Discharge Driving : None Discharge Stairs : Other: Permitted using bilateral handrails Discharge Lifting : No heavy lifting. Diet: Diet Adult Regular. Follow-up appt/ continued care: Follow-up with Primary Care Physician within : 1 Week Provider : Irwin Jackson MD PHD Follow-up with Provider within : Other: 4 weeks for stroke rehabilitation needs (call [facility] outpatient medical clinic at [phone]) Provider #2 : Kathleen Muro MD Follow-up with Provider #2 within : 4 Weeks . Go to appropriate followups, take medications as directed. Seek medical attention for severe concerns of fever, chills, pain, new found weakness or numbness, new difficulty speaking or thinking, new di fficulty swallowing, increasing lethargy, or any other concerns. Discharge disposition: Discharge to home: with family. Post discharge services: occupational therapy, speech-language pathology, services provided via home health, director social service. Course Improving. Progressing as expected. Education and Follow-up Counseled: patient, regarding diagnosis, regarding treatment, regarding medications. Discharge Planning: Followup with primary care physician in one week and other follow-ups as above. Addendum by Armani Barker MD on I am covering today for Dr. Boo. I 11/18/2015 09:16 discussed this patient's case with Dr. Boo briefly this morning. Extracted from: Title: Hospitalist Progress Note Author: Shannan Dalal MD Date: 11/18/15 Impression and Plan 59 yo male stroke 1. Hypertension- controlled on meds 2. left parietal temporal infarct-- in rehab for PT. PMR managing-aspirin and plavix 3. Seizure disorder-continue Dilantin 4. Hyperlipidemia-continue Lipitor thrombocytopenia--- plt inc to 144-- continue lovenox hypocalcemia--- need to be oscal daily dvt ppx ARF-- cr trending down--renal on consult nursing was not able to collect stool, appears more to be constipation-- The patient was seen and examined by me with the resident/CALL OR CONTACT CENTRE COACH/PA and I agree with the History/Exam documented. Extracted from: Title: Initial/Consult: Rehab Author: Armani Barker MD Date: Impression and Plan 59yo right hand dominant M with history of CVA and admission for right side weakness and concern for CVA. PMH: CVA, CT, htn, hyperlipidemia # CVA, acute. Patient also reports prior CVA 2014 but regardless he has not been working for many years. 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 On my examination, he has no focal weakness in the muscles I tested. # R hip pain. Patient reports he had a R hip replacement 2011. Follow up possible functional deficits due R hip pain. 11/11 - Patient reports his right hip pain is only occasional, but is not bothering him at present. # Abnormality of gait. Patient with functional deficits due to several impairments. Follow up therapy interventions. 11/11 - Patient noted yesterday to require CGA for ambulating 200 feet with RW. Continue PT to improve gait quality and distance. # Abnormality of posture: 11/11 - Patient noted yesterday to require Min A - CGA for transfers, and Min A for grooming and upper body dressing. Continue PT and OT to improve postural control to improve transfers and ADLs. # Seizure disorder. On dilantin. Follow up transition to [facility] if OK by neurology or primary team. # Cognitive impairment / Aphasia: 11/11 - Patient not oriented to type of building nor the year. He also have impaired fluency > comprehension of speech. Additionally, he has significant difficulty following two-step commands on examination. ST to work on evaluating/treating cognition and aphasia. # GI/: 11/11 - Patient denies incontinence of bowel/bladder, and reports his last BM was this morning. He may, however, have neurogenic bowel/bladder. If noted to be incontinent of bladder, would sta rt timed voids q4h while awake and check PVRs with bladder scanner, with straight catheterization for PVRs > 250 mL. # DVT PPx: 11/11 - Continue Lovenox. Patient has an increased risk for DVT while hospitalized given limited mobility. # Disposition. Patient will benefit from aggressive inpatient rehab prior to returning home with family support. They live in [facility]. Follow up inpatient rehab choice and approval process. Will likely be a short rehab stay. 11/11 - Patient admitted to acute inpatient rehabilitation last night after medical and financial clearance, arriving in stable medical condition. Will discuss discharge planning at initial team conference scheduled for next Saturday. Post Admission Physician Evaluation: Documentation Reviewed: I have reviewed the Preadmission Screen. Functional status documented at preadmission: I agree with the patient's current functional status as documented in the preadmission screening. Risk for complications: I agree with the risk for clinical complications documented in the preadmission screening. Medical conditions: The patient's medical conditions can be managed in the rehab hospital, The plan of treatment is documented above in the history and physical. Patient participation in therapy: The patient can participate in, and will benefit from an intense therapy program at least 3 hours per day / 5 days per week. Therapies/services include:, Physical therapy, Occupational therapy, Speech language pathology, Rehabilitation Nursing, Psychology, Case Management, Felt Cutter.
--- OUTSIDE RECORDS SUMMARY | 2018-07-22 20:36 | XMS REPORT | Summary of Care ---
:1955 Author Encounter LEELA Denis(SHANNAN) [id number] Date(s): 01/10/15 - 01/10/15 [facility] [address] [place] [address] Professional Services provided by [facility] [place] [address]- Discharge Disposition: Home Physician Attending: Kingsley Inman MD Physician Admitting: Kingsley Inman MD Physician_Referring: Tobias Kirby MD Vital Signs Most recent to oldest 1 2 3 [Reference Range]: Height 182.88 cm (01/09/15 12:13 AM) Temperature Oral [96.4-99.1 96.6 DegF 97.6 DegF 95.9 DegF DegF] (01/10/15 12:00 PM) (01/10/15 8:00 AM) *LOW* (01/10/15 4:28 AM) Blood Pressure [90-140/60-90 127/79 mmHg 157/113 mmHg 144/98 mmHg mmHg] (01/10/15 11:00 AM) *HI* *HI* (01/10/15 10:00 AM) (01/10/15 9:00 AM) Respiratory Rate [14-20 21 BRMIN 24 BRMIN 26 BRMIN BRMIN] *HI* *HI* *HI* (01/10/15 11:28 AM) (01/10/15 11:00 AM) (01/10/15 10:00 AM) Weight 80.5 kg (01/09/15 12:13 AM) Body Mass Index 24.07 m2 (01/09/15 12:13 AM) Problem List Condition Effective Dates Status Health Status Informant Anemia(Confirmed)1 01/07/15 Resolved Cerebrovascular accident 12/17/14 Resolved (stroke)(Confirmed)2 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) [place] (myocardial Resolved infarction)(Confirmed) 1[facility]/C 12/06 Allergies, Adverse Reactions, Alerts Substance Reaction Severity Status NKDA Active Medications acetaminophen 325 mg, 1 tab, Route: PO, Drug form: TAB, Q6H, Dosing Weight 80.5, kg, PRN Pain Score 1-3, Start date: 01/09/15 0:24:00, Duration: 30 day, Stop date: 02/08/15 0 :23:00 Notes: Do not exceed 4 gm/day. (Same as: Tylenol) Start Date: 01/09/15 Stop Date: 01/10/15 Status: Discontinuedaspirin 81 mg tablet, enteric coated 81 mg, 1 tab, Route: PO, Drug form: ECTAB, Daily, Dosing Weight 80.5, kg, Start date: 01/09/15 9:00:00, Duration: 30 day, Stop date: 02/07/15 9:00:00 Notes: Do not crush or chew.(Same As: Ecotrin) Start Date: 01/09/15 Stop Date: 01/10/15 Status: Discontinuedaspirin 81 mg tablet, enteric coated 81 mg=1 tab, PO, Daily, # 90 tab, 3 Refill(s) Start Date: 01/09/15 Status: OrderedCarafate 1 gm, 10 mL, Route: PO, Drug form: SUSP, QID-Before Meals, Dosing Weight 80.5, kg, Start date: 01/09/15 13:00:00, Duration: 30 day, Stop date: 02/08/15 11:30: 00 Notes: Enteral feeds may interfere with the absorption of this medication. Shake well. Take 1 hr before or 2 hrs after antacids, dairy pdt, minerals & meals. (Same As: Carafate) Start Date: 01/09/15 Stop Date: 01/10/15 Status: DiscontinuedColace 100 mg oral capsule 100 mg=1 cap, PO, BID, # 60 cap, 0 Refill(s) Start Date: 01/10/15 Status: OrderedColace 100 mg oral capsule 100 mg, 1 cap, Route: PO, Drug form: CAP, BID, Dosing Weight 80.5, kg, Start date: 01/09/15 9:00:00,Duration: 30 day, Stop date: 02/07/15 17:00:00 Notes: (Same as: Colace) (Do Not Crush) Start Date: 01/09/15 Stop Date: 01/10/15 Status: DiscontinuedCoreg 6.25 mg, 1 tab, Route: PO, Drug form: TAB, BID-Meals, Dosing Weight 80.5, kg, Start date: 01/09/15 8:00:00, Duration: 30 day, Stop date: 02/07/15 17:00:00 Notes: Give with food. (Same As: Coreg) Start Date: 01/09/15 Stop Date: 01/10/15 Status: DiscontinuedCoreg 6.25 mg oral tablet 6.25 mg=1 tab, PO, BID, # 60 tab, 0 Refill(s) Start Date: 01/09/15 Status: Orderedferrous sulfate 325 mg, 1 tab, Route: PO, Drug form: ECTAB, BID-Meals, Dosing Weight 80.5, kg, Start date: 01/09/15 8:00:00, Stop date: 02/07/15 17:00:00 Notes: Give with food. "Do Not Crush" Start Date: 01/09/15 Stop Date: 01/10/15 Status: Discontinuedferrous sulfate 325 mg oral enteric coated tablet 325 mg=1 tab, PO, BID-Meals, # 60 tab, 0 Refill(s) Start Date: 01/10/15 Stop Date: 02/09/15 Status: Orderedfolic acid 1 mg, 1 tab, Route: PO, Drug form: TAB, Daily, Dosing Weight 80.5, kg, Start date: 01/09/15 9:00:00,Duration: 30 day, Stop date: 02/07/15 9:00:00 Notes: (Same as: Folvite) Start Date: 01/09/15 Stop Date: 01/10/15 Status: Discontinuedfolic acid 1 mg oral tablet 1 mg=1 tab, PO, Daily, # 30 tab, 0 Refill(s) Start Date: 01/10/15 Stop Date: 02/09/15 Status: OrderedLipitor 40 mg, 1 tab, Route: PO, Drug form: TAB, Bedtime, Dosing Weight 80.5, kg, Start date: 01/09/15 21:00:00, Duration: 30 day, Stop date: 02/07/15 21:00:00 Notes: (Same as: Lipitor) Start Date: 01/09/15 Stop Date: 01/10/15 Status: DiscontinuedLipitor 40 mg oral tablet 40 mg=1 tab, PO, Bedtime, # 30 tab, 0 Refill(s) Start Date: 01/09/15 Status: Orderedlisinopril 20 mg, 1 tab, Route: PO, Drug form: TAB, Daily, Dosing Weight 80.5, kg, Start date: 01/09/15 9:00:00, Duration: 30 day, Stop date: 02/07/15 9:00:00 Notes: (Same as: Prinivil, Zestril) Start Date: 01/09/15 Stop Date: 01/10/15 Status: Discontinuedlisinopril 20 mg oral tablet 20 mg=1 tab, PO, Daily, # 30 tab, 0 Refill(s) Start Date: 01/09/15 Status: OrderedNS 1,000 mL 1,000 mL, Rate: 75 ml/hr, Infuse over: 13.3 hr, Route: IV, Dosing Weight 80.5 kg , Total Volume: 1,000, Start date: 01/09/15 2:08:00, Duration: 30 day, Stop date : 02/08/15 2:07:00 Start Date: 01/09/15 Stop Date: 01/10/15 Status: Discontinuedpantoprazole 40 mg, Route: IVP, Drug form: INJ, Q12H, Dosing Weight 80.5, kg, Start date: 9:00:00, Duration: 30 day, Stop date: 02/07/15 21:00:00 Notes: For IV push reconstitute with 10 ml 0.9% sodium chloride and push over 2 minutes. (Same as: Protonix) Start Date: 01/09/15 Stop Date: 01/10/15 Status: DiscontinuedPlavix 75 mg, 1 tab, Route: PO, Drug form: TAB, Daily, Dosing Weight 80.5, kg, Start date: 01/09/15 9:00:00, Duration: 30 day, Stop date: 02/07/15 9:00:00 Notes: (Same As: Plavix) Start Date: 01/09/15 Stop Date: 01/10/15 Status: DiscontinuedPlavix 75 mg oral tablet 75 mg=1 tab, PO, Daily, # 30 tab, 0 Refill(s) Start Date: 01/09/15 Status: Orderedpneumococcal 23-valent vaccine 0.5 mL, Route: IM, Drug Form: INJ, Daily, Start date: 01/09/15 9:00:00, Duration : 1 doses or times, Stop date: 01/09/15 9:00:00 Notes: (Same as: Pneumovax 23) Refrigerate Start Date: 01/09/15 Stop Date: 01/09/15 Status: CompletedProtonix 40 mg oral enteric coated tablet 40 mg=1 tab, PO, BID, # 30 tab, 0 Refill(s) Start Date: 01/10/15 Status: Orderedranitidine 150 mg oral capsule 150 mg=1 cap, PO, BID, # 60 cap, 0 Refill(s) Start Date: 01/09/15 Stop Date: 01/10/15 Status: Discontinuedsucralfate 1 g/10 mL oral suspension 1 gm=10 mL, PO, QID-Before Meals, # 1200 mL, 0 Refill(s) Start Date: 01/10/15 Stop Date: 02/09/15 Status: OrderedZofran 4 mg, 2 mL, Route: IVP, Drug form: INJ, Q4H, Dosing Weight 80.5, kg, PRN Nausea , Start date: 01/09/15 0:23:00, Duration: 30 day, Stop date: 02/08/15 0:22:00 Notes: (Same as: Zofran) MEDICATION WASTE Product Size: 4 mgProduct Wasted: ___ mg Start Date: 01/09/15 Stop Date: 01/10/15 Status: Discontinued Results ELECTROLYTES Most recent to oldest [Reference Range]: 1 2 3 Sodium Lvl [135-145 mEq/L] 141 mEq/L 140 mEq/L (01/10/15 3:59 AM) (01/09/15 1:35 AM) Potassium Lvl [3.5-5.1 mEq/L] 3.6 mEq/L 3.7 mEq/L (01/10/15 3:59 AM) (01/09/15 1:35 AM) Chloride Lvl [95-109 mEq/L] 106 mEq/L 104 mEq/L (01/10/15 3:59 AM) (01/09/15 1:35 AM) CO2 [24-32 mEq/L] 28 mEq/L 28 mEq/L (01/10/15 3:59 AM) (01/09/15 1:35 AM) AGAP [10.0-20.0 mEq/L] 10.6 mEq/L 11.7 mEq/L (01/10/15 3:59 AM) (01/09/15 1:35 AM) CHEM PANEL Most recent to oldest [Reference Range]: 1 2 3 Creatinine Lvl [0.5-1.4 mg/dL] 1.1 mg/dL 1.0 mg/dL (01/10/15 3:59 AM) (01/09/15 1:35 AM) eGFR 84 mL/min/1.73m2 1 94 mL/min/1.73m2 2 *NA* *NA* (01/10/15 3:59 AM) (01/09/15 1:35 AM) BUN [7-22 mg/dL] 6 mg/dL 10 mg/dL *LOW* (01/09/15 1:35 AM) (01/10/15 3:59 AM) Glucose Lvl [70-99 mg/dL] 87 mg/dL 3 88 mg/dL 4 (01/10/15 3:59 AM) (01/09/15 1:35 AM) Calcium Lvl [8.5-10.5 mg/dL] 8.2 mg/dL 8.3 mg/dL *LOW* *LOW* (01/10/15 3:59 AM) (01/09/15 1:35 AM) Phosphorus [2.5-4.5 mg/dL] 3.1 mg/dL (01/10/15 3:59 AM) Magnesium Lvl [1.8-2.4 mg/dL] 1.8 mg/dL 2.0 mg/dL (01/10/15 3:59 AM) (01/09/15 1:35 AM) 1Result Comment: The eGFR is calculated [...] eGFR should be multiplied by the estimated BMI.3Interpretive Data: Adult reference range values reflect the clinical guidelines of the [place] [employer].4Interpretive Data: Adult reference range values reflect the clinical guidelines of the [place] [employer].HEMATOLOGY Most recent to oldest 1 2 3 [Reference Range]: WBC [3.7-10.4 K/CMM] 8.0 K/CMM 9.9 K/CMM (01/10/15 3:59 AM) (01/09/15 1:35 AM) RBC [4.70-6.10 M/CMM] 4.23 M/CMM 4.24 M/CMM *LOW* *LOW* (01/10/15 3:59 AM) (01/09/15 1:35 AM) Hgb [14.0-18.0 g/dL] 9.2 g/dL 9.1 g/dL 8.8 g/dL *LOW* *LOW* *LOW* (01/10/15 3:59 AM) (01/09/15 3:41 PM) (01/09/15 8:08 AM) Hct [42.0-54.0 %] 29.2 % 29.1 % 29.0 % *LOW* *LOW* *LOW* (01/10/15 3:59 AM) (01/09/15 3:41 PM) (01/09/15 8:08 AM) MCV [80.0-94.0 fL] 69.0 fL 68.3 fL *LOW* *LOW* (01/10/15 3:59 AM) (01/09/15 1:35 AM) MCH [27.0-31.0 pg] 21.7 pg 21.2 pg *LOW* *LOW* (01/10/15 3:59 AM) (01/09/15 1:35 AM) MCHC [32.0-36.0 g/dL] 31.5 g/dL 31.1 g/dL *LOW* *LOW* (01/10/15 3:59 AM) (01/09/15 1:35 AM) RDW [11.5-14.5 %] 25.9 % 25.6 % *HI* *HI* (01/10/15 3:59 AM) (01/09/15 1:35 AM) Platelet [133-450 K/CMM] 288 K/CMM 312 K/CMM (01/10/15 3:59 AM) (01/09/15 1:35 AM) MPV [7.4-10.4 fL] 9.0 fL 8.8 fL (01/10/15 3:59 AM) (01/09/15 1:35 AM) Segs [45.0-75.0 %] 68.8 % 71.1 % (01/10/15 3:59 AM) (01/09/15 1:35 AM) Lymphocytes [20.0-40.0 %] 15.6 % 16.6 % *LOW* *LOW* (01/10/15 3:59 AM) (01/09/15 1:35 AM) Monocytes [2.0-12.0 %] 11.1 % 9.5 % (01/10/15 3:59 AM) (01/09/15 1:35 AM) Eosinophils [0.0-4.0 %] 3.1 % 1.6 % (01/10/15 3:59 AM) (01/09/15 1:35 AM) Basophils [0.0-1.0 %] 1.4 % 1.2 % *HI* *HI* (01/10/15 3:59 AM) (01/09/15 1:35 AM) Segs-Bands # [1.5-8.1 K/CMM] 5.5 K/CMM 7.0 K/CMM (01/10/15 3:59 AM) (01/09/15 1:35 AM) Lymphocytes # [1.0-5.5 K/CMM] 1.3 K/CMM 1.6 K/CMM (01/10/15 3:59 AM) (01/09/15 1:35 AM) Monocytes # [0.0-0.8 K/CMM] 0.9 K/CMM 0.9 K/CMM *HI* *HI* (01/10/15 3:59 AM) (01/09/15 1:35 AM) Eosinophils # [0.0-0.5 K/CMM] 0.2 K/CMM 0.2 K/CMM (01/10/15 3:59 AM) (01/09/15 1:35 AM) Basophils # [0.0-0.2 K/CMM] 0.1 K/CMM 0.1 K/CMM (01/10/15 3:59 AM) (01/09/15 1:35 AM) Anisocyte [None Seen] 1+ 1+ *ABN* *ABN* (01/10/15 3:59 AM) (01/09/15 1:35 AM) Polychrom [None Seen] Moderate *ABN* (01/10/15 3:59 AM) Hypochrom [None Seen] 1+ 1+ (01/10/15 3:59 AM) (01/09/15 1:35 AM) Microcyte [None Seen] 2+ 3+ *ABN* *NA* (01/10/15 3:59 AM) (01/09/15 1:35 AM) Tear Cell [None Seen] Moderate *ABN* (01/10/15 3:59 AM) Plt Morph Normal Normal (01/10/15 3:59 AM) (01/09/15 1:35 AM) PT [12.0-14.7 seconds] 13.9 seconds (01/09/15 1:35 AM) INR [0.85-1.17] 1.07 5 (01/09/15 1:35 AM) PTT [22.9-35.8 seconds] 34.2 seconds 6 (01/09/15 1:35 AM) 5Interpretive Data: RECOMMENDED RANGES FOR PROTIME INR: 2.0-3.0 for most medical and surgical thromboembolic states. 2.5-3.5 for artificial heart valves and recurrent embolism. INR SHOULD BE USED ONLY FOR PATIENTS ON STABLE ANTICOAGULANT THERAPY.6Interpretive Data: Heparin Therapeutic Range: 57 - 92 Seconds Immunizations Vaccine Date Refusal Reason pneumococcal 23-valent vaccine 01/09/15 Procedures Procedure Date Related Diagnosis Body Site Hip replacement 2011 Stent placement1 1CARDIAC Social History Social History Type Response Substance Abuse Use: Current. Type: Cocaine. Recreational Drug Route: Inhaled. Previous Treatment: None. IV drug use: No. Ready to change: Yes.1 Alcohol Past Smoking Status Never smoker; Type: Cigarettes; Previous treatment: None; Ready to change: Yes; Concerns about tobacco use in household: No; Exposure to Tobacco Smoke None; Cigarette Smoking Last 365 Days No; Reg Smoking Cessation Counseling No 1USES MARIJUANA Assessment and Plan Extracted from: Title: Hospitalist Progress Note Author: Cynthia Zhang MD Date: 01/09/15 Assessment/Plan 1.Upper GI bleed s/p EGD showed duodenal ulcer PPI, carafate started 2.Duodenal ulcer as above 3.Duodenitis as above 4.Acute blood loss anemia h/h unchanged, no further bleeding cbc in am 5.Iron deficiency continue iron 6.Deficiency of folic acid continue FA 7.CVA (cerebral infarction), SubAcute Left MCA territory known, continue ASA/PLAVIX/statin 8.CAD (coronary artery disease) s/p stents, asa, bb, acei, statin 9.HTN (hypertension) bb/acei 10.Hyperlipidemia statin 11.Chronic CHF euvolemic, compensated Orders: MD to Nurse Order, Misc Prophylaxis scd 2 to GI bleed Disposition pending clinical stability on anti coagulation therapy
--- OUTSIDE RECORDS SUMMARY | 2018-07-22 20:37 | XMS REPORT | Summary of Care ---
:1955 Author Name Elfego Jo R.N. Address Unavailable Unavailable , Care Team Providers Name Role Phone GARO Portillo, MARIA ELENA Unavailable Unavailable GARO LIU, MARIA ELENA Unavailable Unavailable Unavailable Unavailable Unavailable Functional Status Name Dates Details Functional status health issues are not documented Status: Name Dates Details Cognitive status health issues are not documented Status: Problems Name Dates Details Hypertension (401.9, I10) Status: Active Type 2 diabetes mellitus with other neurologic complication, with long-term current use of insulin (250.60, E11.49) Status: Active Diabetes (250.00, E11.9) Status: Active Dementia (294.20, F03.90) Status: Active CVA (cerebral vascular accident) (434.91, I63.9) Status: Active Peripheral vascular disease (443.9, I73.9) Status: Active Coronary artery disease (414.00, I25.10) Status: Active Indwelling Hernandez catheter present (V53.6, Z96.0) Status: Active Status post placement of implantable loop recorder (V45.09, Z95.818) Status : Active Medications Name Dates Details HydroCHLOROthiazide 25 MG Oral Tablet TAKE 1 TABLET DAILY Quantity: 90 Refills: 0 Active Carvedilol 3.125 MG Oral Tablet TAKE 1 TABLET TWICE DAILY Refills: 0 Active Tamsulosin HCl - 0.4 MG Oral Capsule Take one tablet daily Quantity: 90 Refills: 3 Active Cephalexin 500 MG Oral Capsule Take one capsule daily Refills: 0 Active AmLODIPine Besylate 10 MG Oral Tablet TAKE 1 TABLET DAILY Quantity: 90 Refills: 0 Active LevETIRAcetam 1000 MG Oral Tablet TAKE 1 TABLET TWICE DAILY. Refills: 0 Active Memantine HCl - 10 MG Oral Tablet TAKE 1 TABLET TWICE DAILY Refills: 0 Active Atorvastatin Calcium 20 MG Oral Tablet TAKE 1 TABLET AT BEDTIME. Quantity: 90 Refills: 1 Active Aspirin 81 MG TABS Refills: 0 Active Losartan Potassium 100 MG Oral Tablet TAKE 1 TABLET DAILY Quantity: 90 Refills: 3 Active Allergies and Adverse Reactions Name Dates Details No Known Drug Allergies (Allergy) Status: Active Past Medical History Name Dates Details History of Heart disease (429.9, I51.9) Status: Resolved History of myocardial infarction (412, I25.2) Status: Resolved History of Stroke (434.91, I63.9) Status: Resolved Procedures Procedure Dates Details History of Total Hip Replacement Right Completed History of Total Hip Replacement Left Completed History of Percutaneous endoscopic gastrostomy tube insertion Completed Immunization Name Dates Details Immunizations not documented Social History Name Dates Details - Status: Name Dates Details Unknown if ever smoked Vital Signs Date Test Result Details 28-Jun-20189:53 BP Systolic 96 mm[Hg] Status: Comments: Location: RUE; Position: Sitting BP Diastolic 66 mm[Hg] Status: Comments: Location: RUE; Position: Sitting Height 70 in Status: Weight 215 lb Status: Body Mass Index Calculated 30.85 kg/m2 Status: Body Surface Area Calculated 2.15 m2 Status: Temperature 98.1 f Status: Comments: Method: Oral Heart Rate 87 /min Status: Comments: Location: R Brachial Artery; Results Date Description Value Details Results not documented Plan of Care Name Dates Details Planned Observations Planned Goals not documented Planned Encounters Appointment; MARIA ELENA WYMAN M.D. On: 30-Sep-2018 9:20 Interventions Provided Plan-- Need his records from [facility] to determine his medical history . Will not change care at this time-- Refer to for loop recorder interrogation and follow up-- He want to transfer care to [place] - needs to establish Neurology Primary-- follow up in 3 months Instructions Name Dates Details Instructions not documented Encounters Appointment; MARIA ELENA WYMAN M.D. On: 28-Jun-2018 9:20 Encounter Diagnosis: Problem not documented
--- OUTSIDE RECORDS SUMMARY | 2018-07-22 20:37 | XMS REPORT | Summary of Care ---
:1955 Author Organization [facility] Address [address] [place] [id number]- Encounter [facility](SHANNAN) [id number] Date(s): 11/07/15 - 11/11/[address] [address]- Discharge Disposition: DC/DISC TO REHAB Attending Physician: Jameel Teran MD Admitting Physician: Jameel Teran MD Vital Signs Most recent to oldest 1 2 3 [Reference Range]: Height 165.1 cm (11/08/15 12:27 AM) Temperature Oral [96.4-99.1 99.2 DegF 98.3 DegF 98.4 DegF DegF] *HI* (11/11/15 12:03 PM) (11/11/15 8:21 AM) (11/11/15 4:18 PM) Blood Pressure [90-140/60-90 140/103 mmHg 153/111 mmHg 136/97 mmHg mmHg] (11/11/15 4:18 PM) *HI* (11/11/15 8:21 AM) (11/11/15 12:03 PM) Respiratory Rate [14-20 18 BRMIN 18 BRMIN 18 BRMIN BRMIN] (11/11/15 4:18 PM) (11/11/15 12:03 PM) (11/11/15 8:21 AM) Peripheral Pulse Rate [60-100 73 bpm 73 bpm 73 bpm bpm] (11/11/15 4:18 PM) (11/11/15 12:03 PM) (11/11/15 8:21 AM) Weight 92.813 kg (11/08/15 12:27 AM) Body Mass Index 34.05 m2 (11/08/15 12:27 AM) Problem List Condition Effective Dates Status Health Status Informant Anemia(Confirmed)1 01/07/15 Resolved Cerebrovascular accident 12/17/14 Resolved (stroke)(Confirmed)2 Dyslipidemia(Confirmed) Active Hypertension(Confirmed) Resolved Hypertension(Confirmed) Active 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) [place] (myocardial Resolved infarction)(Confirmed) 1TRANSFER [facility]/C 12/06 Allergies, Adverse Reactions, Alerts Substance Reaction Severity Status NKDA Active Medications 1/2 NS 1,000 mL 1,000 mL, Rate: 100 ml/hr, Infuse over: 10 hr, Route: IV, Dosing Weight 92.813 kg, Total Volume: 1,000, Start date: 11/08/15 0:55:00 CDT, Duration: 30 day, Stop date: 12/08/15 0:54:00 CDT Start Date: 11/08/15 Stop Date: 11/09/15 Status: Discontinuedacetaminophen 650 mg, 2 tab, Route: PO, Drug form: TAB, Q4H, Dosing Weight 80.5, kg, PRN For Temp > 100.4 F, Start date: 11/08/15 0:04:00 CDT, Duration: 30 day, Stop date: 12/08/15 0:03:00 CDT Notes: Do not exceed 4 gm/day. (Same as: Tylenol) Start Date: 11/08/15 Stop Date: 11/11/15 Status: Discontinuedacetaminophen 325 mg oral tablet 650 mg=2 tab, PO, Q4H, PRN For Temp > 100.4 F, 0 Refill(s) Start Date: 11/11/15 Status: Orderedaspirin 81 mg tablet, enteric coated 81 mg=1 tab, PO, Daily, 0 Refill(s) Start Date: 11/11/15 Status: Orderedaspirin 81 mg tablet, enteric coated 81 mg, 1 tab, Route: PO, Drug form: ECTAB, Daily, Dosing Weight 80.5, kg, Start date: 11/08/15 9:00:00 CDT, Duration: 30 day, Stop date: 12/07/15 9:00:00 CDT Notes: Do not crush or chew.(Same As: Ecotrin) Start Date: 11/08/15 Stop Date: 11/11/15 Status: DiscontinuedAtivan 1 mg, 0.5 mL, Route: IVP, Drug form: INJ, ONCE, Dosing Weight 92.813, kg, PRN Agitation, Start date:11/09/15 2:26:00 CDT Notes: (Same as: Ativan) Start Date: 11/09/15 Stop Date: 11/09/15 Status: CompletedAtivan 1 mg, 0.5 mL, Route: IV, Drug form: INJ, ONCE, Start date: 11/08/15 8:30:00 CDT , Stop date: 168:30:00 CDT Notes: (Same as: Ativan) Start Date: 11/08/15 Stop Date: 11/08/15 Status: Completedatorvastatin 40 mg oral tablet 40 mg=1 tab, PO, Bedtime, 0 Refill(s) Start Date: 11/11/15 Status: OrderedBD Normal Saline Flush 10 mL, Route: IVP, Drug Form: INJ, PRN, PRN Line Flush, Start date: 11/08/15 0: 08:00 CDT, Duration: 30 day, Stop date: 12/08/15 0:07:00 CDT Notes: (Same as: BD Posiflush) Start Date: 11/08/15 Stop Date: 11/11/15 Status: Discontinuedbenzonatate 100 mg oral capsule 100 mg=1 cap, PO, Q8H, PRN Cough, 0 Refill(s) Start Date: 11/11/15 Status: Orderedbisacodyl 10 mg, 1 supp, Route: NH, Drug form: SUPP, Daily, Dosing Weight 80.5, kg, PRN Constipation, Start date: 11/08/15 0:04:00 CDT, Duration: 30 day, Stop date: 0:03:00 CDT Notes: (Same As: Dulcolax, Bisco-Lax) Start Date: 11/08/15 Stop Date: 11/11/15 Status: Discontinuedbisacodyl 10 mg rectal suppository 10 mg=1 supp, NH, Daily, PRN Constipation, 0 Refill(s) Start Date: 11/11/15 Status: Orderedcarvedilol 6.25 mg oral tablet 6.25 mg=1 tab, PO, Q12H, 0 Refill(s) Start Date: 11/11/15 Status: Orderedciprofloxacin 500 mg, 1 tab, Route: PO, Drug form: TAB, [id number], Dosing Weight 92.813, kg, Start date: 11/11/15 12:00:00 CDT, Duration: 30 day, Stop date: 12/11/15 0:00: 00 CDT Notes: May interfere w/enteral feedings - Take 1 hr before or 2 hrs after antacids, dairy pdt & minerals. On empty stomach. Start Date: 11/11/15 Stop Date: 11/11/15 Status: Discontinuedciprofloxacin 400 mg, 200 mL, Route: IVPB, Drug form: INJ, [id number], Dosing Weight 92.813, kg, Start date: 11/07/1612:00:00 CDT, Duration: 30 day, Stop date: 12/08/15 1:00:00 CDT Notes: Do not refrigerate Start Date: 11/08/15 Stop Date: 11/11/15 Status: Discontinuedclopidogrel 75 mg oral tablet 75 mg=1 tab, PO, Daily, 0 Refill(s) Start Date: 11/11/15 Status: OrderedCoreg 6.25 mg, 1 tab, Route: PO, Drug form: TAB, Q12H, Dosing Weight 92.813, kg, Start date: 11/09/15 9:00:00 CDT, Duration: 30 day, Stop date: 12/08/15 21:00: 00 CDT Notes: Give with food. (Same As: Coreg) Start Date: 11/09/15 Stop Date: 11/11/15 Status: Discontinueddextromethorphan-guaiFENesin 10 mg-100 mg/5 mL oral liquid 10 mL, Route: PO, Drug Form: SYRP, Dosing Weight 80.5, kg, Q4H, PRN Cough, Start date: 11/08/15 0:04:00 CDT, Duration: 30 day, Stop date: 12/08/15 0:03:00 CDT Notes: (dextromethorphan-guaifenesin 10-100mg/5ml 10 ml oral SOLN ud) (Same as: Robitussin DM) Start Date: 11/08/15 Stop Date: 11/11/15 Status: DiscontinuedDilantin 100 mg, 2 mL, Route: IVP, Drug form: INJ, Q8H, Dosing Weight 80.5, kg, Start date: 11/08/15 8:00:00 CDT, Duration: 30 day, Stop date: 12/08/15 0:00:00 CDT Notes: (Same as: Dilantin) Do not infuse greater than 50 mg/min. MEDICATION WASTE Product Size: 100 mgProduct Wasted: ___ mg Start Date: 11/08/15 Stop Date: 11/10/15 Status: DiscontinuedDilantin 100 mg oral capsule, extended release 300 mg=3 cap, PO, QPM, 0 Refill(s) Start Date: 11/11/15 Status: OrderedDilantin 100 mg oral capsule, extended release 300 mg, 3 cap, Route: PO, Drug form: ERCAP, QPM, Dosing Weight 92.813, kg, Start date: 11/11/15 17:00:00 CDT, Duration: 30 day, Stop date: 12/10/15 17:00: 00 CDT Notes: (Same as: Dilantin) Do not open, crush, or chew. Start Date: 11/11/15 Stop Date: 11/11/15 Status: DiscontinueddiphenhydrAMINE 25 mg, 1 cap, Route: PO, Drug form: CAP, Q6H, Dosing Weight 80.5, kg, PRN Itching, Start date: 11/08/15 0:04:00 CDT, Duration: 30 day, Stop date: 0:03:00 CDT Notes: (Same as: Benadryl) Start Date: 11/08/15 Stop Date: 11/11/15 Status: Discontinuedenalapril 0.625 mg, 0.5 mL, Route: IVP, Drug form: INJ, Q6H, Dosing Weight 80.5, kg, PRN Hypertension, Start date: 11/08/15 0:02:00 CDT, Stop date: 12/08/15 0:01:00 CDT , For SBP > 180mmHg and/or DBP > 105mmHg Notes: (Same as: Vasotec-IV) Start Date: 11/08/15 Stop Date: 11/11/15 Status: Discontinuedenoxaparin 40 mg, 0.4 mL, Route: SUB-Q, Drug form: INJ, [id number], Dosing Weight 80.5, kg, Start date: 11/08/15 1:00:00 CDT, Stop date: 12/07/15 1:00:00 CDT Notes: (Same as: Lovenox) Start Date: 11/08/15 Stop Date: 11/11/15 Status: Discontinuedenoxaparin 40 mg=0.4 mL, SUB-Q, [id number], 0 Refill(s) Start Date: 11/11/15 Status: Orderedlabetalol 10 mg, 2 mL, Route: IVP, Drug form: INJ, Q10Min, Dosing Weight 80.5, kg, PRN Hypertension, For SBP > 180 mmHg and/or DBP > 105 mmHg, Priority: Routine, Start date: 11/08/15 0:02:00 CDT, Duration: 30 day, Stop date: 12/08/15 0:01:00 CDT Notes: (Same as: Normodyne, Trandate)Push over 2 minutes Give bolus over 2-3 minutes. Start Date: 11/08/15 Stop Date: 11/11/15 Status: DiscontinuedLipitor 40 mg, 1 tab, Route: PO, Drug form: TAB, Bedtime, Dosing Weight 92.813, kg, Start date: 11/09/15 21:00:00 CDT, Duration: 30 day, Stop date: 12/08/15 21:00: 00 CDT Notes: (Same as: Lipitor) Start Date: 11/09/15 Stop Date: 11/11/15 Status: Discontinuedlisinopril 20 mg, 1 tab, Route: PO, Drug form: TAB, Daily, Dosing Weight 92.813, kg, Start date: 11/10/15 9:30:00 CDT, Duration: 30 day, Stop date: 12/10/15 9:00:00 CDT Notes: (Same as: Prinivil, Zestril) Start Date: 11/10/15 Stop Date: 11/11/15 Status: Discontinuedlisinopril 20 mg oral tablet 20 mg=1 tab, PO, Daily, 0 Refill(s) Start Date: 11/11/15 Status: OrderedLORazepam 1 mg, 0.5 mL, Route: IV, Drug form: INJ, ONCE, Dosing Weight 92.813, kg, Priority: NOW, Start date: 11/08/15 10:29:00 CDT, Stop date: 11/08/15 10:29:00 CDT Notes: (Same as: Ativan) Start Date: 11/08/15 Stop Date: 11/08/15 Status: Completedmorphine Sulfate 2 mg, 1 mL, Route: IVP, Drug form: INJ, ONCE, Dosing Weight 92.813, kg, Start date: 11/08/15 11:22:00 CDT, Stop date: 11/08/15 11:22:00 CDT Notes: (Same as:MORPhine Sulfate) Start Date: 11/08/15 Stop Date: 11/08/15 Status: Completedondansetron 4 mg, 2 mL, Route: IVP, Drug form: INJ, Q8H, Dosing Weight 80.5, kg, PRN Nausea & Vomiting, Start date: 11/08/15 0:04:00 CDT, Duration: 30 day, Stop date: 12/08/15 0:03:00 CDT Notes: (Same as: Elisabeth) MEDICATION WASTE Product Size: 4 mgProduct Wasted: ___ mg Start Date: 11/08/15 Stop Date: 11/11/15 Status: DiscontinuedPepcid 20 mg oral tablet 20 mg, 1 tab, Route: PO, Drug form: TAB, Q12H, Dosing Weight 92.813, kg, Start date: 11/09/15 9:00:00 CDT, Duration: 30 day, Stop date: 12/08/15 21:00:00 CDT Notes: (Same as: Pepcid) Start Date: 11/09/15 Stop Date: 11/11/15 Status: DiscontinuedPepcid 20 mg oral tablet 20 mg=1 tab, PO, Q12H, 0 Refill(s) Start Date: 11/11/15 Status: OrderedPlavix 75 mg, 1 tab, Route: PO, Drug form: TAB, Daily, Dosing Weight 92.813, kg, Start date: 11/09/15 9:00:00 CDT, Duration: 30 day, Stop date: 12/08/15 9:00:00 CDT Notes: (Same As: Plavix) Start Date: 11/09/15 Stop Date: 11/11/15 Status: DiscontinuedSaline Flush 0.9% 10 ml, Route: IVP, Drug Form: INJ, Dosing Weight 80.5, kg, Q12H, Start date: 9:00:00 CDT, Duration: 30 day, Stop date: 12/07/15 21:00:00 CDT Notes: (Same as: BD Posiflush) Start Date: 11/08/15 Stop Date: 11/11/15 Status: DiscontinuedSaline Flush 0.9% 10 ml, Route: IVP, Drug Form: INJ, Dosing Weight 80.5, kg, PRN, PRN Line Flush, Start date: 160:02:00 CDT, Duration: 30 day, Stop date: 12/08/15 0:01:00 CDT Notes: (Same as: BD Posiflush) Start Date: 11/08/15 Stop Date: 11/11/15 Status: Discontinuedsimethicone 80 mg, 1 tab, Route: PO, Drug form: CHEWTAB, Q6H, Dosing Weight 80.5, kg, PRN Gas, Start date: 11/08/15 0:04:00 CDT, Duration: 2 doses or times, Stop date: Limited # of times Notes: (Same as: Mylicon) Start Date: 11/08/15 Stop Date: 11/11/15 Status: Discontinuedsimethicone 80 mg oral tablet, chewable 80 mg=1 tab, PO, Q6H, PRN Gas, 0 Refill(s) Start Date: 11/11/15 Status: OrderedSodium Chloride 0.9% IV 250 mL, Route: IVPB, Start date: 11/08/15 0:08:00 CDT, Duration: 30 day, Stop date: 12/08/15 0:07:00CDT, PRN Line Flush Start Date: 11/08/15 Stop Date: 11/11/15 Status: DiscontinuedTessalon Perles 100 mg, 1 cap, Route: PO, Drug form: CAP, Q8H, Dosing Weight 80.5, kg, PRN Cough , Start date: 11/08/15 0:04:00 CDT, Duration: 30 day, Stop date: 12/08/15 0:03: 00 CDT Notes: (Same As: Robinson Colon)"Do Not Crush" Start Date: 11/08/15 Stop Date: 11/11/15 Status: DiscontinuedZyPREXA 5 mg, Route: IM, Drug form: INJ, ONCALL, Dosing Weight 92.813, kg, FOR MRI, Priority: NOW, Start date: 11/09/15 13:58:00 CDT Notes: (Same As: ZyPREXA IM). Reconstitute with 2.1 ml sterile water for injection; use within 1 hour after reconstitution. For IM use only; do not administer IV or SUB-Q. Start Date: 11/09/15 Stop Date: 11/09/15 Status: Completed Results ELECTROLYTES Most recent to oldest 1 2 3 [Reference Range]: Sodium Lvl [135-145 mEq/L] 141 mEq/L 143 mEq/L 142 mEq/L (11/09/15 6:33 AM) (11/08/15 6:00 AM) (11/08/15 3:02 AM) Potassium Lvl [3.5-5.1 3.6 mEq/L 3.7 mEq/L 4.0 mEq/L 1 mEq/L] (11/09/15 6:33 AM) (11/08/15 6:00 AM) (11/08/15 3:02 AM) Chloride Lvl [95-109 mEq/L] 107 mEq/L 110 mEq/L 109 mEq/L (11/09/15 6:33 AM) *HI* (11/08/15 3:02 AM) (11/08/15 6:00 AM) CO2 [24-32 mEq/L] 23 mEq/L 22 mEq/L 23 mEq/L *LOW* *LOW* *LOW* (11/09/15 6:33 AM) (11/08/15 6:00 AM) (11/08/15 3:02 AM) AGAP [10.0-20.0 mEq/L] 14.6 mEq/L 14.7 mEq/L 14.0 mEq/L (11/09/15 6:33 AM) (11/08/15 6:00 AM) (11/08/15 3:02 AM) 1Result Comment: Specimen Slightly Hemolyzed.CHEM PANEL Most recent to oldest 1 2 3 [Reference Range]: Creatinine Lvl [0.50-1.40 1.40 mg/dL 1.50 mg/dL 1.60 mg/dL mg/dL] (11/09/15 6:33 AM) *HI* *HI* (11/08/15 6:00 AM) (11/08/15 3:02 AM) eGFR 63 mL/min/1.73m2 1 58 mL/min/1.73m2 2 53 mL/min/1.73m2 3 *NA* *NA* *NA* (11/09/15 6:33 AM) (11/08/15 6:00 AM) (11/08/15 3:02 AM) BUN [7-22 mg/dL] 12 mg/dL 18 mg/dL 19 mg/dL (11/09/15 6:33 AM) (11/08/15 6:00 AM) (11/08/15 3:02 AM) B/C Ratio [6-25] 9 (11/09/15 6:33 AM) Glucose Lvl [70-99 mg/dL] 90 mg/dL 96 mg/dL 100 mg/dL (11/09/15 6:33 AM) (11/08/15 6:00 AM) *HI* (11/08/15 3:02 AM) Total Protein [6.4-8.4 g/dL] 7.0 g/dL (11/09/15 6:33 AM) Albumin Lvl [3.5-5.0 g/dL] 3.0 g/dL *LOW* (11/09/15 6:33 AM) Globulin [2.0-4.0 g/dL] 4.0 g/dL (11/09/15 6:33 AM) A/G Ratio [0.7-1.6] 0.8 (11/09/15 6:33 AM) Calcium Lvl [8.5-10.5 mg/dL] 8.4 mg/dL 8.5 mg/dL 8.3 mg/dL *LOW* (11/08/15 6:00 AM) *LOW* (11/09/15 6:33 AM) (11/08/15 3:02 AM) Phosphorus [2.5-4.5 mg/dL] 3.0 mg/dL (11/09/15 6:33 AM) Magnesium Lvl [1.8-2.4 1.8 mg/dL mg/dL] (11/09/15 6:33 AM) ALT [0-65 unit/L] 18 unit/L (11/09/15 6:33 AM) AST [0-37 unit/L] 19 unit/L (11/09/15 6:33 AM) Alk Phos [39-136 unit/L] 50 unit/L (11/09/15 6:33 AM) Bili Total [0.2-1.3 mg/dL] 1.2 mg/dL (11/09/15 6:33 AM) 1Result Comment: The eGFR is calculated [...] eGFR should be multiplied by the estimated BMI.CARDIAC ENZYMES Most recent to oldest [Reference Range]: 1 2 3 Troponin-I [0.00-0.40 ng/mL] 0.03 ng/mL 0.03 ng/mL (11/08/15 1:47 PM) (11/08/15 3:02 AM) LIPIDS Most recent to oldest [Reference Range]: 1 2 3 CHD Risk [4.00-7.30] 2.10 *LOW* (11/08/15 3:02 AM) Chol [<=199 mg/dL] 88 mg/dL (11/08/15 3:02 AM) Trig [<=149 mg/dL] 46 mg/dL (11/08/15 3:02 AM) HDL [>=61 mg/dL] 42 mg/dL *LOW* (11/08/15 3:02 AM) LDL (Calculated) [<=99 mg/dL] 37 mg/dL (11/08/15 3:02 AM) VLDL 9 *NA* (11/08/15 3:02 AM) SPECIAL CHEMISTRY Most recent to oldest [Reference Range]: 1 2 3 Hgb A1C [<=5.6 %] 5.7 % *HI* (11/08/15 3:02 AM) DRUG SCREEN Most recent to oldest [Reference Range]: 1 2 3 U Amph Scr [Negative] Negative *NA* (11/08/15 3:02 AM) U Dian Scr [Negative] Negative *NA* (11/08/15 3:02 AM) U Benzodia Scr [Negative] Negative *NA* (11/08/15 3:02 AM) U Cocaine Scr [Negative] Negative *NA* (11/08/15 3:02 AM) U Opiate Scr [Negative] Negative *NA* (11/08/15 3:02 AM) U Phencyc Scr [Negative] Negative *NA* (11/08/15 3:02 AM) U Cannab Scr [Negative] Positive *ABN* (11/08/15 3:02 AM) UDS Note See Note (11/08/15 3:02 AM) URINE AND STOOL Most recent to oldest [Reference Range]: 1 2 3 UA Turbidity [Clear] Clear (11/08/15 3:02 AM) UA Color [Yellow] Light Yellow *NA* (11/08/15 3:02 AM) UA pH [5.0-8.0] 6.0 (11/08/15 3:02 AM) UA Spec Grav [<=1.030] 1.012 (11/08/15 3:02 AM) UA Glucose [Negative mg/dL] 50 mg/dL *ABN* (11/08/15 3:02 AM) UA Blood [Negative] Moderate *ABN* (11/08/15 3:02 AM) UA Ketones [Negative mg/dL] Negative mg/dL *NA* (11/08/15 3:02 AM) UA Protein [Negative mg/dL] Negative mg/dL (11/08/15 3:02 AM) UA Urobilinogen [0.1-1.0 mg/dL] <=1.0 mg/dL *NA* (11/08/15 3:02 AM) UA Bili [Negative] Negative *NA* (11/08/15 3:02 AM) UA Leuk Est [Negative] Negative (11/08/15 3:02 AM) UA Nitrite [Negative] Negative (11/08/15 3:02 AM) UA WBC [0-5 /HPF] 25 /HPF *HI* (11/08/15 3:02 AM) UA RBC [0-2 /HPF] 21 /HPF *HI* (11/08/15 3:02 AM) UA Bacteria [None Seen /HPF] Occasional /HPF *NA* (11/08/15 3:02 AM) UA Sq Epi [Few /LPF] Occasional /LPF *NA* (11/08/15 3:02 AM) UA Mucus [None Seen /LPF] Few /LPF *NA* (11/08/15 3:02 AM) IMMUNOLOGY Most recent to oldest [Reference Range]: 1 2 3 Treponemal Scr [Non Reactive] Non Reactive *NA* (11/08/15 3:02 AM) HEMATOLOGY Most recent to oldest [Reference Range]: 1 2 3 WBC [3.7-10.4 K/CMM] 6.5 K/CMM 9.0 K/CMM (11/09/15 6:33 AM) (11/08/15 6:00 AM) RBC [4.70-6.10 M/CMM] 5.06 M/CMM 4.60 M/CMM (11/09/15 6:33 AM) *LOW* (11/08/15 6:00 AM) Hgb [14.0-18.0 g/dL] 16.3 g/dL 14.7 g/dL (11/09/15 6:33 AM) (11/08/15 6:00 AM) Hct [42.0-54.0 %] 49.0 % 44.4 % (11/09/15 6:33 AM) (11/08/15 6:00 AM) MCV [80.0-94.0 fL] 96.9 fL 96.6 fL *HI* *HI* (11/09/15 6:33 AM) (11/08/15 6:00 AM) MCH [27.0-31.0 pg] 32.2 pg 32.0 pg *HI* *HI* (11/09/15 6:33 AM) (11/08/15 6:00 AM) MCHC [32.0-36.0 g/dL] 33.2 g/dL 33.2 g/dL (11/09/15 6:33 AM) (11/08/15 6:00 AM) RDW [11.5-14.5 %] 14.1 % 14.0 % (11/09/15 6:33 AM) (11/08/15 6:00 AM) Platelet [133-450 K/CMM] 78 K/CMM 91 K/CMM *LOW* *LOW* (11/09/15 6:33 AM) (11/08/15 6:00 AM) MPV [7.4-10.4 fL] 12.0 fL 12.1 fL *HI* *HI* (11/09/15 6:33 AM) (11/08/15 6:00 AM) Segs [45.0-75.0 %] 54.5 % 70.9 % (11/09/15 6:33 AM) (11/08/15 6:00 AM) Lymphocytes [20.0-40.0 %] 31.3 % 19.1 % (11/09/15 6:33 AM) *LOW* (11/08/15 6:00 AM) Monocytes [2.0-12.0 %] 12.1 % 8.9 % *HI* (11/08/15 6:00 AM) (11/09/15 6:33 AM) Eosinophils [0.0-4.0 %] 1.6 % 0.4 % (11/09/15 6:33 AM) (11/08/15 6:00 AM) Basophils [0.0-1.0 %] 0.5 % 0.7 % (11/09/15 6:33 AM) (11/08/15 6:00 AM) Segs-Bands # [1.5-8.1 K/CMM] 3.5 K/CMM 6.4 K/CMM (11/09/15 6:33 AM) (11/08/15 6:00 AM) Lymphocytes # [1.0-5.5 K/CMM] 2.0 K/CMM 1.7 K/CMM (11/09/15 6:33 AM) (11/08/15 6:00 AM) Monocytes # [0.0-0.8 K/CMM] 0.8 K/CMM 0.8 K/CMM (11/09/15 6:33 AM) (11/08/15 6:00 AM) Eosinophils # [0.0-0.5 K/CMM] 0.1 K/CMM (11/09/15 6:33 AM) Basophils # [0.0-0.2 K/CMM] 0.0 K/CMM 0.1 K/CMM (11/09/15 6:33 AM) (11/08/15 6:00 AM) RBC Morph Normal (11/08/15 6:00 AM) Plt Morph Normal (11/08/15 6:00 AM) Immunizations Vaccine Date Refusal Reason pneumococcal [...] MARIJUANA Assessment and Plan Extracted from: Title: Progress Note Author: Kathleen Muro MD Date: 11/11/15 Assessment/Plan A 59-year-old -[place] woman with past medical history significant for hypertension, hyperlipidemia, coronary artery disease, CVA with mild right- sided weakness as residual presented with acu te onset of right-sided weakness and slurred speech and seizure. Recommendations: - Possible TIA -Cotninue with ASA 81 mg PO daily and Plavix 75 mg daily - Telemetry and Neurocheck Per protocol - MRI of the brain: Negative for acute stroke - Cardiac ECHO: EF45% - PT/OT, Speech consults. - HTN: - Management per primary team recommendations. - Seizure: -Continue with Dilantin 300 QHS - EEG: No seizure. - LDL: 37, no indication for statin at this time. - DM: - A1C : 5.9, - Prophylaxis: - Lovenox, PPI Thank you. I have no further recommendation at this point. Please call with questions. Extracted from: Title: PM&R Consult Note Author: Carlos Enrique Boo MD Date: 11/11/15 Assessment/Plan Cerebrovascular accident (stroke) Seizure 59yo M with history ofCVAand admission for right side weakness and concern forCVA. PMH:CVA,KS,htn, hyperlipidemia #CVA, acute. Patient also reports [id number] but regardless he has not been working for many years. # R hip pain. Patient reports he had a R hip replacement 2011. Follow up possible functional deficits due R hip pain. # Abnormality of gait. Patient with functional deficits due to several impairments. Follow up therapy interventions. # Seizure disorder. On dilantin. Follow up transition tokeppraif [place] by neurology or primary team. # Disposition. Patient will benefit from aggressive inpatientrehabprior to returning home with [place] support[place] [facility] [place] Follow up inpatientrehabchoice and approval process. Will likely be a shortrehab stay. Thank you for allowing us to participate in the care of this patient. Please do not hesitate to call with questions or concerns. Carlos Enrique Boo MD Physical Medicine & Rehabilitation
[2018-07-22 22:15] LABS: Absolute Lymphocytes (CBC) 1.9 K/uL (0.7-4.9); Absolute Monocytes 0.7 K/uL (0.1-1.3); Absolute Neutrophil 3.4 K/uL (1.8-8.0); Basophils % 1.2 % (0-1.3); Eosinophils % 2.3 % (0-4.4); Hematocrit 46.2 % (39.6-49.0); Lymphocytes % 30.3 % (15.3-44.8); MPV 10.1 fL (7.6-11.3); Monocytes % 10.6 % (3.3-12.3); RBC Red Blood Cell Count 4.88 M/uL (4.33-5.43)
[2018-07-22 22:33] LABS: Albumin 3.6 g/dL (3.4-5.0); Bilirubin Direct 0.2 mg/dL (0-0.2); Bilirubin Total 0.7 mg/dL (0.2-1.0); Potassium 3.9 mmol/L (3.5-5.1); Protein, Total 7.2 g/dL (6.4-8.2)
--- NOTE | 2018-07-23 00:11 | EDPHYS ---
Physician Documentation [facility] Name: Francheska Bolaños Jr Age: 62 yrs Sex: Male : 1955 Arrival Date: 07/22/2018 Time: 20:26 Bed 15 Private MD: Alexandre Cannon V ED Physician Carroll Amin HPI: 07/22 21:07 This 62 yrs old Black Male presents to ER via Ambulatory with complaints of Problem jmm With Feeding Tube. 21:07 The patient presents with abdominal pain. Onset: The symptoms/episode began/occurred jmm gradually, today. The symptoms do not radiate. Associated signs and symptoms: Pertinent negatives: fever, vomiting. This is a 62 year old male with a history of CVA, GERD, HLP that presents to the ED with abdominal pain, drainage from feeding tube beginning today. Denies vomiting, fever. . Historical: - Allergies: 20:31 No Known Allergies; jb4 - Home Meds: 20:31 memantine 10 mg Oral tab 1 tab 2 times per day [Active]; aspirin 81 mg Oral TbEC 1 tab jb4 once daily [Active]; carvedilol 3.125 mg oral tab 1 tab 2 times per day [Active]; atorvastatin 20 mg oral tab 1 tab once daily [Active]; levetiracetam 1,000 mg Oral tab 1 tab every 12 hours [Active]; hydrochlorothiazide 25 mg Oral tab [Active]; tamsulosin 0.4 mg oral cp24 1 cap once daily [Active]; amlodipine 10 mg tab 1 tab once daily [Active]; losartan 100 mg oral tab 1 tab once daily [Active]; cephalexin 800mg Oral cap 1 tab [Active]; - PMHx: 20:31 CVA; GERD; High Cholesterol; Seizures; Hypertension; jb4 - PSHx: 20:31 RICARDA hip replacement; Leg stents; Loop recorder; jb4 - Immunization history:: Adult Immunizations up to date, Flu vaccine is up to date. - Social history:: Smoking status: Patient/guardian denies using tobacco, Patient/guardian denies using alcohol. - Ebola Screening: : No symptoms or risks identified at this time. ROS: 21:07 Constitutional: Negative for fever, chills, and weight loss, Cardiovascular: Negative jmm for chest pain, palpitations, and edema, Respiratory: Negative for shortness of breath, cough, wheezing, and pleuritic chest pain. 21:07 Abdomen/GI: Positive for abdominal pain. 21:07 All other systems are negative. Exam: 21:07 Head/Face: atraumatic. Chest/axilla: Normal chest wall appearance and motion. [facility] Cardiovascular: Regular rate and rhythm. No edema appreciated Respiratory: Normal respirations, no respiratory distress appreciated 21:07 Constitutional: The patient appears in no acute distress, alert, awake. 21:07 Abdomen/GI: Inspection: PEG tube noted with drainage, non purulent. No bleeding is appreciated. Abdomen is soft, non gaurding or rebound is appreciated. . 21:07 Back: ROM is normal. 21:07 Musculoskeletal/extremity: ROM: intact in all extremities. 21:07 Skin: Appearance: Color: normal in color, drainage noted from the PEG tube site. 21:07 Neuro: Orientation: is normal, Mentation: is normal, Memory: is normal. 21:07 Psych: Behavior/mood is pleasant, cooperative. Vital Signs: 20:31 BP 124 / 90; Pulse 77; Resp 16; Temp 98.5(O); Pulse Ox 100% on R/A; Weight 98.88 kg jb4 (R); Height 5 ft. 11 in. (180.34 cm) (R); Pain 2/10; 22:30 BP 115 / 86; Pulse 62; Resp 16; Pulse Ox 98% on R/A; jb4 23:21 BP 114 / 81; Pulse 76; Resp 16; Pulse Ox 98% on R/A; [facility] 07/23 00:00 BP 109 / 67; Pulse 69; Resp 16; Pulse Ox 99% on R/A; 4 07/22 20:31 Body Mass Index 30.40 (98.88 kg, 180.34 cm) [facility] MDM: 07/22 20:58 Patient medically screened. [facility] 07/23 00:00 Data reviewed: radiologic studies, CT scan. [facility] 00:00 Counseling: I had a detailed discussion with the patient and/or guardian regarding: lab [facility] results, radiology results. ED course: Will follow up with GI tomorrow. 00:07 Data reviewed: vital signs, nurses notes, lab test result(s). Counseling: I had a [facility] detailed discussion with the patient and/or guardian regarding: the historical points, exam findings, and any diagnostic results supporting the discharge/admit diagnosis, the need for outpatient follow up, to return to the emergency department if symptoms worsen or persist or if there are any questions or concerns that arise at home. 07/22 21:06 Order name: Basic Metabolic Panel; Complete Time: 22:37 [facility] 07/22 21:06 Order name: CBC with Diff; Complete Time: 22:33 [facility] 07/22 21:06 Order name: Creatinine for Radiology; Complete Time: 22:33 [facility] 07/22 21:06 Order name: Hepatic Function; Complete Time: 22:37 [facility] 07/22 21:06 Order name: Lipase; Complete Time: 22:37 [facility] 07/22 21:06 Order name: IV Saline Lock; Complete Time: 21:47 [facility] 07/22 21:06 Order name: Labs collected and sent; Complete Time: 22:01 [facility] 07/22 22:35 Order name: Abdomen EDNJ Administered Medications: No medications were administered Disposition: :36 Co-signature as Attending Physician, Carroll Amin MD. maria esther Disposition: 07/23/18 00:09 Discharged to Home. Impression: Encounter for attention to gastrostomy. - Condition is Stable. - Discharge Instructions: Gastrostomy Tube Home Guide, Adult. - Medication Reconciliation Form, Thank You Letter, Antibiotic Education, Prescription Opioid Use form. - Follow up: Private Physician; When: 1 - 2 days; Reason: Recheck today's complaints, Continuance of care, Re-evaluation by your physician. Signatures: Dispatcher [facility] Carroll Amin MD MD pkl Mickail, Joel, PA PA Ryder Montesinos, RN RN jb4 Corrections: (The following items were deleted from the chart) 07/22 22:35 21:06 Abdomen Pelvis W Con+CT.RAD.BRZ ordered. [facility] 07/23 00:31 00:09 07/23/2018 00:09 Discharged to Home. Impression: Encounter for attention to jb4 gastrostomy. Condition is Stable. Forms are Medication Reconciliation Form, Thank You Letter, Antibiotic Education, Prescription Opioid Use. Follow up: Private Physician; When: 1 - 2 days; Reason: Recheck today's complaints, Continuance of care, Re-evaluation by your physician. paula
--- NOTE | 2018-07-23 00:11 | ER ---
Nurse's Notes [facility] Name: Francheska Bolaños Jr Age: 62 yrs Sex: Male : 1955 Arrival Date: 07/22/2018 Time: 20:26 Bed 15 Private MD: Alexandre Cannon V Diagnosis: Encounter for attention to gastrostomy Presentation: 07/22 20:31 Presenting complaint: He has had drainage coming from his feeding tube that is bloody jb4 and started complaining of pain today, and it is bleeding around the tube. 20:31 Transition of care: patient was not received from another setting of care. Onset of jb4 symptoms was July 22, 2018. Risk Assessment: Do you want to hurt yourself or someone else? Patient reports no desire to harm self or others. Initial Sepsis Screen: Does the patient meet any 2 criteria? No. Patient's initial sepsis screen is negative. Does the patient have a suspected source of infection? No. Patient's initial sepsis screen is negative. Care prior to arrival: None. 20:31 Method Of Arrival: Ambulatory jb4 20:31 Acuity: MAGI 3 jb4 Historical: - Allergies: 20:31 No Known Allergies; jb4 - Home Meds: 20:31 memantine 10 mg Oral tab 1 tab 2 times per day [Active]; aspirin 81 mg Oral TbEC 1 tab jb4 once daily [Active]; carvedilol 3.125 mg oral tab 1 tab 2 times per day [Active]; atorvastatin 20 mg oral tab 1 tab once daily [Active]; levetiracetam 1,000 mg Oral tab 1 tab every 12 hours [Active]; hydrochlorothiazide 25 mg Oral tab [Active]; tamsulosin 0.4 mg oral cp24 1 cap once daily [Active]; amlodipine 10 mg tab 1 tab once daily [Active]; losartan 100 mg oral tab 1 tab once daily [Active]; cephalexin 800mg Oral cap 1 tab [Active]; - PMHx: 20:31 CVA; GERD; High Cholesterol; Seizures; Hypertension; jb4 - PSHx: 20:31 RICARDA hip replacement; Leg stents; Loop recorder; jb4 - Immunization history:: Adult Immunizations up to date, Flu vaccine is up to date. - Social history:: Smoking status: Patient/guardian denies using tobacco, Patient/guardian denies using alcohol. - Ebola Screening: : No symptoms or risks identified at this time. Screenin:31 Abuse screen: Denies threats or abuse. Nutritional screening: No deficits noted. jb4 Tuberculosis screening: No symptoms or risk factors identified. Fall Risk None identified. Assessment: 21:31 General: Appears in no apparent distress. comfortable, Behavior is calm, cooperative, jb4 appropriate for age. Pain: Complains of pain in abdomen Pain does not radiate. Pain currently is 2 out of 10 on a pain scale. Neuro: Level of Consciousness is awake, alert, obeys commands, Oriented to person, place, time, situation. Cardiovascular: Patient's skin is warm and dry. Respiratory: Airway is patent Respiratory effort is even, unlabored, Respiratory pattern is regular, symmetrical. GI: PEG tube in place, clamped. Bowel sounds present X 4 quads. Abd is soft X 4 quads Abd is non tender in right upper quadrant and right lower quadrant Abdomen is tender to palpation in left upper quadrant and left lower quadrant. : Hernandez in place. EENT: No signs and/or symptoms were reported regarding the EENT system. Derm: Skin is intact, Skin is dry, Skin is normal, Skin temperature is warm. Musculoskeletal: Circulation, motion, and sensation intact. 22:34 Reassessment: Patient appears in no apparent distress at this time. Patient and/or jb4 family updated on plan of care and expected duration. Pain level reassessed. Patient is alert, oriented x 3, equal unlabored respirations, skin warm/dry/pink. 23:21 Reassessment: Patient appears in no apparent distress at this time. Patient and/or jb4 family updated on plan of care and expected duration. Pain level reassessed. Patient is alert, oriented x 3, equal unlabored respirations, skin warm/dry/pink. 07/23 00:28 Reassessment: Patient appears in no apparent distress at this time. Patient and/or jb4 family updated on plan of care and expected duration. Pain level reassessed. Patient is alert, oriented x 3, equal unlabored respirations, skin warm/dry/pink. Vital Signs: 07/22 20:31 BP 124 / 90; Pulse 77; Resp 16; Temp 98.5(O); Pulse Ox 100% on R/A; Weight 98.88 kg jb4 (R); Height 5 ft. 11 in. (180.34 cm) (R); Pain 2/10; 22:30 BP 115 / 86; Pulse 62; Resp 16; Pulse Ox 98% on R/A; jb4 23:21 BP 114 / 81; Pulse 76; Resp 16; Pulse Ox 98% on R/A; jb4 07/23 00:00 BP 109 / 67; Pulse 69; Resp 16; Pulse Ox 99% on R/A; jb4 07/22 20:31 Body Mass Index 30.40 (98.88 kg, 180.34 cm) jb4 ED Course: 07/22 20:26 Patient arrived in ED. dl4 20:26 Alexandre Cannon MD is Private Physician. dl4 20:31 Arm band placed on left wrist. jb4 20:31 Patient has correct armband on for positive identification. Bed in low position. Call jb4 light in reach. Side rails up X 1. Pulse ox on. NIBP on. 20:47 Ryder Esparza, RN is Primary Nurse. jb4 20:49 Triage completed. jb4 20:50 Inserted saline lock: 22 gauge in right hand, using aseptic technique. jb4 20:55 Lucius Forrest PA is PHCP. jmm 20:55 Carroll Amin MD is Attending Physician. jmm 21:08 Radiology exam delayed due to lab results not completed at this time. (BUN/Creatinine). vr 21:59 Radiology exam delayed due to lab results not completed at this time. (BUN/Creatinine). vm2 22:28 Radiology exam delayed due to lab results not completed at this time. (BUN/Creatinine). vm2 22:30 Inserted saline lock: 20 gauge in right antecubital area, using aseptic technique. bb Missed attempt(s): 20 gauge in left antecubital area. Bleeding controlled, band aid applied, catheter tip intact. 23:00 Abdomen In Process Unspecified. EDMS 07/23 00:00 No provider procedures requiring assistance completed. IV discontinued, intact, jb4 bleeding controlled. Administered Medications: No medications were administered Outcome: 00:09 Discharge ordered by . [facility] 00:30 Discharged to home via wheelchair. jb4 00:30 Condition: stable 00:30 Discharge instructions given to patient, family, Instructed on discharge instructions, follow up and referral plans. Demonstrated understanding of instructions, follow-up care. 00:31 Patient left the ED. jb4 Signatures: Dispatcher [employer] EDMS Lucius Forrest PA PA jmm Ballard, Brenda, RN RN bb Davis, Victoria vr Bryson, James, RN RN jb4 McGuire, Victoria vm2 Luna, David [facility]
[2018-07-23 01:12] VITALS: TEMP 98.5
[2018-07-23 01:16] VITALS: BP 109/67; O2SAT 99
--- NOTE | 2018-07-23 08:09 | RAD REPORT ---
EXAM DESCRIPTION: CT - Abdomen Pelvis Wo Contrast - 07/23/2018 5:40 am CLINICAL HISTORY: Abdominal pain, drainage from feeding tube A preliminary report was provided at the time of the study and reviewed prior to final report. COMPARISON: CT study March 2017 TECHNIQUE: Axial [address] imaging of the abdomen and pelvis was performed without IV contrast. No IV contrast was given because of allergy, abnormal renal function, patient refusal or physician re quest. Approximately 60 cc of diluted Gastrografin injected via the feeding tube All CT scans are performed using dose optimization technique as appropriate and may include automated exposure control or mA/KV adjustment according to patient size. FINDINGS: No suspicious findings in the lung bases. The liver, spleen and pancreas show no suspicious findings on non-contrast imaging. Gallbladder and b iliary tree are also without suspicious finding. No hydronephrosis or suspicious renal mass. Approximately 2 centimeter round low-density mass lateral mid right kidney is most likely a cyst. Full assessment is limited in the absence of IV contrast. No significant adrenal finding. Isodense renal masses and pyelonephritis cannot be excluded in the abse nce of IV contrast. No gross abnormality of the urinary bladder. Hernandez catheter is in place. No gastric dilatation or wall thickening. No extravasation of the injected contrast. No abnormalities seen along the course of the PEG tube. No dilated large or small bowel. Stool distends the rectum. N o free air, free fluid or inflammatory stranding. No hernia, mass or bulky lymphadenopathy. Disc and bony degenerative changes are present. Right hip surgical changes are noted. Prominent lower lumbar facet degenerative change is present. No pathologic bone process. IMPRESSION: No abscess or inflammatory changes along the course of the PEG tube and there is no extr avasation of the injected contrast. The remainder the study, as detailed above, is without acute or emergent finding. Full assessment is limited is the absence of IV contrast.
== END 2018-07-23 00:31 | disposition home or self-care (01) ==
LOC: ER 20:23
DX: Z43.1 Encounter for attention to gastrostomy (principal); I10 Essential (primary) hypertension; K21.9 Gastro-esophageal reflux disease without esophagitis; G40.909 Epilepsy, unspecified, not intractable, without status epilepticus; E78.00 Pure hypercholesterolemia, unspecified; Z79.82 Long term (current) use of aspirin; Z86.73 Personal history of transient ischemic attack (TIA), and cerebral infarction without residual deficits
CPT/HCPCS: 36415; 74176; 80048; 80076; 83690; 85025; 99284

== ENCOUNTER 2018-08-29 12:03 | Emergency (ER) | payer OTHER ==
--- OUTSIDE RECORDS SUMMARY | 2018-08-29 12:10 | XMS REPORT | Continuity of Care Document ---
:1955 Author Organization Interface Problems Problem Status Onset Classification Date Comments Source Date Reported STROKE Active 016 [facility] CVA Active 016 [facility] ISCHEMIC CVA Active [address] SUSPECTED CVA (R Active SIDED WEAKNESS), 016 [facility] NEW ON ISCHEMIC Active [facility] STROKE/SUBACUTE 015 [facility] Anemia<sup>1</sup> Resolved Problem 11/21/2015 TRANSFER [facility] [place] Cerebrovascular Resolved Problem 11/21/2015 D/C 12/06 [facility] accident (<span 015 Medical ID="[id number]">C [facility] onfirmed</span>)<s [facility] up>2</sup> Dyslipidemia Active Problem 11/21/2015 [facility] Hypertension Resolved Problem 11/21/2015 [facility] Loss of vision of Resolved Problem 11/21/2015 [facility] right eye [facility] [place] (<span Resolved Problem 11/21/2015 [facility] ID="[id number]"> Medical onfirmed</span>) [facility] ISCHEMIC OPTIC Active [facility] NEUROPTHY [facility] CEREBRAL Active INFARCTION, [facility] UNSPECIFIED OTHER Active CEREBROVASCULAR [facility] DISEASE Medications Medication Details Route Status Patient Ordering Order Source Instructions Provider Date Lovenox 40 mg, 0.4 mL, No Longer Route: SUB-Q, Active 2015 [facility] Drug form: INJ, [id number], Dosing Weight 80.5, kg, Start date: 11/19/15 9:00:00 CDT, Duration: 30 day, Stop date: 12/18/15 9:00:00 CDTNotes: (Same as: Lovenox) Ritalin 5 mg, 1 tab, No Longer Route: PO, Active 2015 [facility] Drug form: TAB, BID, Dosing Weight 87.443, kg, Start date: 11/18/15 7:00:00 CDT, Duration: 30 day, Stop date: 12/17/15 12:00:00 CDTNotes: (Same as:Ritalin) gabapentin 100 mg, 1 cap, No Longer Route: PO, Active 2015 [facility] Drug form: CAP, Q8H, Dosing Weight 87.443, kg, Start date: 11/18/15 0:00:00 CDT, Duration: 30 day, Stop date: 12/17/15 16:00:00 CDTNotes: (Same as: Neurontin) gabapentin 100 MG 100 mg=1 cap, Active Oral Capsule PO, Q8H-06, # 2015 [facility] 90 cap, 0 Refill(s) docusate sodium 100 mg=1 cap, Active 100 mg oral PO, BID, # 60 2015 [facility] capsule cap, 0 Refill(s) Phenytoin sodium 300 mg=3 cap, Active 100 MG Extended PO, QPM, # 90 2015 [facility] Release Capsule cap, 0 [Dilantin] Refill(s) lisinopril 20 mg 20 mg=1 tab, Active oral tablet PO, Daily, # 2015 [facility] 30 tab, 0 Refill(s) amLODIPine 5 mg 5 mg=1 tab, Active oral tablet PO, Daily, # 2015 [facility] 30 tab, 0 Refill(s) Famotidine 20 MG 20 mg=1 tab, Active Oral Tablet PO, Q12H, # 60 2015 [facility] [Pepcid] tab, 0 Refill(s) clopidogrel 75 mg 75 mg=1 tab, Active oral tablet PO, Daily, # 2015 [facility] 30 tab, 0 Refill(s) atorvastatin 40 40 mg=1 tab, Active mg oral tablet PO, Bedtime, # 2015 [facility] 30 tab, 0 Refill(s) Aspirin 81 MG 81 mg=1 tab, Active Enteric Coated PO, Daily, # 2015 [facility] Tablet 30 tab, 0 Refill(s) carvedilol 25 mg 25 mg=1 tab, Active oral tablet PO, Q12H, # 60 2015 tab, 0 Refill(s) Amlodipine 5 mg, 1 tab, No Longer Route: PO, Active 2015 [facility] Drug form: TAB, Daily, Dosing Weight 87.443, kg, Priority: NOW, Start date: 11/17/15 9:20:00 CDT, Duration: 30 day, Stop date: 12/17/15 9:00:00 CDTNotes: (Same as: Norvasc) NS 0.45% IV 1,000 1,000 mL, No Longer mL Rate: 75 2015 [facility] ml/hr, Infuse over: 13.3 hr, Route: IV, Dosing Weight 87.443 kg, Total Volume: 1,000, Start date: 11/16/15 14:08:00 CDT, Duration: 30 day, Stop date: 12/16/15 14:07:00 CDT Ritalin 2.5 mg, 0.5 No Longer tab, Route: Active 2015 [facility] PO, Drug form: TAB, BID, Dosing Weight 87.443, kg, Start date: 11/16/15 7:00:00 CDT, Duration: 30 day, Stop date: 12/15/15 12:00:00 CDTNotes: (Same as:Ritalin) gabapentin 100 mg, Route: No Longer PO, Drug form: Active 2015 [facility] CAP, Q8H, Dosing Weight 87.443, kg, Start date: 11/16/15 0:00:00 CDT, Stop date: 11/18/15 16:00:00 CDT gabapentin 100 mg, 1 cap, No Longer Route: PO, Active 2015 [facility] Drug form: CAP, Q8H-06, Dosing Weight 87.443, kg, Start date: 11/15/15 22:00:00 CDT, Duration: 30 day, Stop date: 12/15/15 14:00:00 CDTNotes: (Same as: Neurontin) Hydralazine 10 mg, 1 tab, No Longer Route: PO, Active 2015 [facility] Drug form: TAB, Q6H, Dosing Weight 87.443, kg, PRN Hypertension, Start date: 11/15/15 17:01:00 CDT, Duration: 30 day, Stop date: 12/15/15 17:00:00 CDTNotes: (Same as: Apresoline) May interfere w/enteral feedings. Take With Food Sodium Chloride 1,000 mL, No Longer 0.154 MEQ/ML Rate: 100 Active 2015 [facility] Injectable ml/hr, Infuse Solution over: 10 hr, Route: IV, Dosing Weight 87.443 kg, Total Volume: 1,000, Start date: 11/14/15 9:42:00 CDT, Duration: 30 day, Stop date: 12/14/15 9:41:00 CDT Coreg 25 mg, 1 tab, No Longer Route: PO, Active 2015 [facility] Drug form: TAB, Q12H, Dosing Weight 92.813, kg, Start date: 11/13/15 21:00:00 CDT, Duration: 30 day, Stop date: 12/13/15 9:00:00 CDTNotes: Give with food. (Same As: Coreg) Coreg 12.5 mg, 1 No Longer tab, Route: Active 2015 [facility] PO, Drug form: TAB, Q12H, Dosing Weight 92.813, kg, Start date: 11/12/15 21:00:00 CDT, Duration: 30 day, Stop date: 12/12/15 9:00:00 CDTNotes: Give with food. (Same As: Coreg) Dilantin 300 mg, 3 cap, No Longer Route: PO, Active 2015 [facility] Drug form: ERCAP, QPM, Dosing Weight 92.813, kg, Start date: 11/12/15 17:00:00 CDT, Duration: 30 day, Stop date: 12/11/15 17:00:00 CDTNotes: (Same as: Dilantin) Do not open, crush, or chew. cloNIDine 0.1 mg 0.1 mg, 1 tab, Inactive oral tablet Route: PO, 2015 [facility] Drug form: TAB, ONCE, Start date: 11/12/15 15:00:00 CDT, Stop date: 11/12/15 15:00:00 CDTNotes: (Same As: Catapres) Clonidine 0.1 mg, 1 tab, No Longer Hydrochloride 0.1 Route: PO, Active 2015 [facility] MG Oral Tablet Drug form: TAB, TID, Dosing Weight 87.443, kg, PRN Elevated BP, SBP > 180 or DBP > 100, Start date: 11/12/15 14:46:00 CDT, Duration: 30 day, Stop date: 12/12/15 14:45:00 CDTNotes: (Same As: Catapres) Lovenox 40 mg, 0.4 mL, No Longer Route: SUB-Q, 2015 [facility] Drug form: INJ, [id number], Dosing Weight 80.5, kg, Start date: 11/12/15 9:00:00 CDT, Duration: 30 day, Stop date: 12/11/15 9:00:00 CDTNotes: (Same as: Lovenox) Docusate 100 mg, 1 cap, No Longer Route: PO, 2015 [facility] Drug form: CAP, BID, Dosing Weight 88.182, kg, Start date: 11/12/15 9:00:00 CDT, Duration: 30 day, Stop date: 12/11/15 17:00:00 CDTNotes: (Same as: Colace) (Do Not Crush) Plavix 75 mg, 1 tab, No Longer Route: PO, 2015 [facility] Drug form: TAB, Daily, Dosing Weight 92.813, kg, Start date: 11/12/15 9:00:00 CDT, Duration: 30 day, Stop date: 12/11/15 9:00:00 CDTNotes: (Same As: Plavix) aspirin 81 mg 81 mg, 1 tab, No Longer tablet, enteric Route: PO, 2015 [facility] coated Drug form: ECTAB, Daily, Dosing Weight 80.5, kg, Start date: 11/12/15 9:00:00 CDT, Duration: 30 day, Stop date: 12/11/15 9:00:00 CDTNotes: Do not crush or chew. (Same As: Ecotrin) Prinivil 20 mg, 1 tab, No Longer Route: PO, 2015 [facility] Drug form: TAB, Daily, Dosing Weight 92.813, kg, Start date: 11/12/15 9:00:00 CDT, Duration: 30 day, Stop date: 12/11/15 9:00:00 CDTNotes: (Same as: Prinivil, Zestril) Saline Flush 0.9% 10 ml, Route: No Longer IVP, Drug Active 2015 [facility] Form: INJ, Dosing Weight 88.182, kg, Q12H, Start date: 11/11/15 21:00:00 CDT, Duration: 30 day, Stop date: 12/11/15 9:00:00 CDTNotes: (Same as: BD Posiflush) Cipro 500 mg, 1 tab, No Longer Route: PO, Active 2015 [facility] Drug form: TAB, [id number], Dosing Weight 92.813, kg, Start date: 11/11/15 21:00:00 CDT, Duration: 7 day, Stop date: 11/18/15 9:00:00 CDTNotes: May interfere w/enteral feedings - Take 1 hr before or 2 hrs after antacids, dairy pdt & minerals. On empty stomach. Pepcid 20 mg, 1 tab, No Longer Route: PO, Active 2015 [facility] Drug form: TAB, Q12H, Dosing Weight 92.813, kg, Start date: 11/11/15 21:00:00 CDT, Duration: 30 day, Stop date: 12/11/15 9:00:00 CDTNotes: (Same as: Pepcid) Coreg 6.25 mg, 1 No Longer tab, Route: 2015 [facility] PO, Drug form: TAB, Q12H, Dosing Weight 92.813, kg, Start date: 11/11/15 21:00:00 CDT, Duration: 30 day, Stop date: 12/11/15 9:00:00 CDTNotes: Give with food. (Same As: Coreg) Lipitor 40 mg, 1 tab, No Longer Route: PO, Active 2015 [facility] Drug form: TAB, Bedtime, Dosing Weight 92.813, kg, Start date: 11/11/15 21:00:00 CDT, Duration: 30 day, Stop date: 12/10/15 21:00:00 CDTNotes: (Same as: Lipitor) Saline Flush 0.9% 10 ml, Route: No Longer IVP, Drug Active 2015 [facility] Form: INJ, Dosing Weight 88.182, kg, PRN, PRN Line Flush, Start date: 11/11/15 20:47:00 CDT, Duration: 30 day, Stop date: 12/11/15 20:46:00 CDTNotes: (Same as: BD Posiflush) Dulcolax Laxative 10 mg, 1 supp, No Longer Route: UT, Active 2015 [facility] Drug form: SUPP, Daily, Dosing Weight 80.5, kg, PRN Constipation, Start date: 11/11/15 19:59:00 CDT, Duration: 30 day, Stop date: 12/11/15 19:58:00 CDTNotes: (Same As: Dulcolax, Bisco-Lax) Tylenol 650 mg, 2 tab, No Longer Route: PO, Active 2015 [facility] Drug form: TAB, Q4H, Dosing Weight 80.5, kg, PRN For Temp > 100.4 F, Start date: 11/11/15 19:58:00 CDT, Duration: 30 day, Stop date: 12/11/15 19:57:00 CDTNotes: Do not exceed 4 gm/day. (Same as: Tylenol) Robitussin-DM 10 mL, Route: No Longer PO, Drug Form: Active 2015 [facility] SYRP, Dosing Weight 80.5, kg, Q4H, PRN Cough, Start date: 11/11/15 19:54:00 CDT, Duration: 30 day, Stop date: 12/11/15 19:53:00 CDTNotes: (dextromethorp krause-guaifenesi n 10-100mg/5ml 10 ml oral SOLN ud) (Same as: Robitussin DM) Phenytoin sodium 300 mg, 3 cap, Inactive 100 MG Extended Route: PO, 2015 [facility] Release Capsule Drug form: [Dilantin] ERCAP, QPM, Dosing Weight 92.813, kg, Start date: 11/11/15 17:00:00 CDT, Duration: 30 day, Stop date: 12/10/15 17:00:00 CDTNotes: (Same as: Dilantin) Do not open, crush, or chew. Aspirin 81 MG 81 mg=1 tab, Active Enteric Coated PO, Daily, 0 2015 [facility] Tablet Refill(s) simethicone 80 mg 80 mg=1 tab, Active oral tablet, PO, Q6H, PRN 2015 [facility] chewable Gas, 0 Refill(s) Phenytoin sodium 300 mg=3 cap, Active 100 MG Extended PO, QPM, 0 2015 [facility] Release Capsule Refill(s) [Dilantin] Famotidine 20 MG 20 mg=1 tab, Active Oral Tablet PO, Q12H, 0 2015 [facility] [Pepcid] Refill(s) Enoxaparin 40 mg=0.4 mL, Active SUB-Q, 2015 [facility] [id number], 0 Refill(s) bisacodyl 10 mg 10 mg=1 supp, Active rectal UT, Daily, PRN 2015 [facility] suppository Constipation, 0 Refill(s) benzonatate 100 100 mg=1 cap, Active mg oral capsule PO, Q8H, PRN 2015 [facility] Cough, 0 Refill(s) acetaminophen 325 650 mg=2 tab, Active mg oral tablet PO, Q4H, PRN 2015 [facility] For Temp > 100.4 F, 0 Refill(s) lisinopril 20 mg 20 mg=1 tab, Active oral tablet PO, Daily, 0 2015 [facility] Refill(s) clopidogrel 75 mg 75 mg=1 tab, Active oral tablet PO, Daily, 0 2015 [facility] Refill(s) carvedilol 6.25 6.25 mg=1 tab, Active mg oral tablet PO, Q12H, 0 2015 [facility] Refill(s) atorvastatin 40 40 mg=1 tab, Active mg oral tablet PO, Bedtime, 0 2015 [facility] Refill(s) Ciprofloxacin 500 mg, 1 tab, Inactive Route: PO, 2015 [facility] Drug form: TAB, [id number], Dosing Weight 92.813, kg, Start date: 11/11/15 12:00:00 CDT, Duration: 30 day, Stop date: 12/11/15 0:00:00 CDTNotes: May interfere w/enteral feedings - Take 1 hr before or 2 hrs after antacids, dairy pdt & minerals. On empty stomach. Lisinopril 20 mg, 1 tab, No Longer Route: PO, Active 2015 [facility] Drug form: TAB, Daily, Dosing Weight 92.813, kg, Start date: 11/10/15 9:30:00 CDT, Duration: 30 day, Stop date: 12/10/15 9:00:00 CDTNotes: (Same as: Prinivil, Zestril) Lipitor 40 mg, 1 tab, No Longer Route: PO, Active 2015 [facility] Drug form: TAB, Bedtime, Dosing Weight 92.813, kg, Start date: 11/09/15 21:00:00 CDT, Duration: 30 day, Stop date: 12/08/15 21:00:00 CDTNotes: (Same as: Lipitor) Zyprexa 5 mg, Route: Inactive IM, Drug form: 2015 [facility] INJ, ONCALL, Dosing Weight 92.813, kg, FOR MRI, Priority: NOW, Start date: 11/09/15 13:58:00 CDTNotes: (Same As: ZyPREXA IM). Reconstitute with 2.1 ml sterile water for injection; use within 1 hour after reconstitution . For IM use only; do not administer IV or SUB-Q. Famotidine 20 MG 20 mg, 1 tab, No Longer Oral Tablet Route: PO, Active 2015 [facility] [Pepcid] Drug form: TAB, Q12H, Dosing Weight 92.813, kg, Start date: 11/09/15 9:00:00 CDT, Duration: 30 day, Stop date: 12/08/15 21:00:00 CDTNotes: (Same as: Pepcid) Plavix 75 mg, 1 tab, No Longer Route: PO, Active 2015 [facility] Drug form: TAB, Daily, Dosing Weight 92.813, kg, Start date: 11/09/15 9:00:00 CDT, Duration: 30 day, Stop date: 12/08/15 9:00:00 CDTNotes: (Same As: Plavix) Coreg 6.25 mg, 1 No Longer tab, Route: Active 2015 [facility] PO, Drug form: TAB, Q12H, Dosing Weight 92.813, kg, Start date: 11/09/15 9:00:00 CDT, Duration: 30 day, Stop date: 12/08/15 21:00:00 CDTNotes: Give with food. (Same As: Coreg) Ativan 1 mg, 0.5 mL, Inactive Route: IVP, 2015 [facility] Drug form: INJ, ONCE, Dosing Weight 92.813, kg, PRN Agitation, Start date: 11/09/15 2:26:00 CDTNotes: (Same as: Ativan) Ciprofloxacin 400 mg, 200 No Longer mL, Route: Active 2015 [facility] IVPB, Drug form: INJ, [id number], Dosing Weight 92.813, kg, Start date: 11/08/15 13:00:00 CDT, Duration: 30 day, Stop date: 12/08/15 1:00:00 CDTNotes: Do not refrigerate Morphine 2 mg, 1 mL, Inactive Route: IVP2015 [facility] Drug form: INJ, ONCE, Dosing Weight 92.813, kg, Start date: 11/08/15 11:22:00 CDT, Stop date: 11/08/15 11:22:00 CDTNotes: (Same as:MORPhine Sulfate) Lorazepam 1 mg, 0.5 mL, Inactive Route: IV, 2015 [facility] Drug form: INJ, ONCE, Dosing Weight 92.813, kg, Priority: NOW, Start date: 11/08/15 10:29:00 CDT, Stop date: 11/08/15 10:29:00 CDTNotes: (Same as: Ativan) Saline Flush 0.9% 10 ml, Route: No Longer IVP, Drug Active 2015 [facility] Form: INJ, Dosing Weight 80.5, kg, Q12H, Start date: 11/08/15 9:00:00 CDT, Duration: 30 day, Stop date: 12/07/15 21:00:00 CDTNotes: (Same as: BD Posiflush) Aspirin 81 MG 81 mg, 1 tab, No Longer Enteric Coated Route: PO, Active 2015 [facility] Tablet Drug form: ECTAB, Daily, Dosing Weight 80.5, kg, Start date: 11/08/15 9:00:00 CDT, Duration: 30 day, Stop date: 12/07/15 9:00:00 CDTNotes: Do not crush or chew. (Same As: Ecotrin) Ativan 1 mg, 0.5 mL, Inactive Route: IV, 2015 [facility] Drug form: INJ, ONCE, Start date: 11/08/15 8:30:00 CDT, Stop date: 11/08/15 8:30:00 CDTNotes: (Same as: Ativan) Dilantin 100 mg, 2 mL, No Longer Route: IVP, Active 2015 [facility] Drug form: INJ, Q8H, Dosing Weight 80.5, kg, Start date: 11/08/15 8:00:00 CDT, Duration: 30 day, Stop date: 12/08/15 0:00:00 CDTNotes: (Same as: Dilantin) Do not infuse greater than 50 mg/min. MEDICATION WASTE Product Size: 100 mg Product Wasted: ___ mg Enoxaparin 40 mg, 0.4 mL, No Longer Route: SUB-Q, Active 2015 [facility] Drug form: INJ, [id number], Dosing Weight 80.5, kg, Start date: 11/08/15 1:00:00 CDT, Stop date: 12/07/15 1:00:00 CDTNotes: (Same as: Lovenox) 1/2 NS 1,000 mL 1,000 mL, No Longer Rate: 100 Active 2015 [facility] ml/hr, Infuse over: 10 hr, Route: IV, Dosing Weight 92.813 kg, Total Volume: 1,000, Start date: 11/08/15 0:55:00 CDT, Duration: 30 day, Stop date: 12/08/15 0:54:00 CDT Sodium Chloride 250 mL, Route: No Longer 0.9% IV IVPB, Start Active 2015 [facility] date: 11/08/15 0:08:00 CDT, Duration: 30 day, Stop date: 12/08/15 0:07:00 CDT, PRN Line Flush BD Normal Saline 10 mL, Route: No Longer Flush IVP, Drug Active 2015 [facility] Form: INJ, PRN, PRN Line Flush, Start date: 11/08/15 0:08:00 CDT, Duration: 30 day, Stop date: 12/08/15 0:07:00 CDTNotes: (Same as: BD Posiflush) Acetaminophen 650 mg, 2 tab, No Longer Route: PO, Active 2015 [facility] Drug form: TAB, Q4H, Dosing Weight 80.5, kg, PRN For Temp > 100.4 F, Start date: 11/08/15 0:04:00 CDT, Duration: 30 day, Stop date: 12/08/15 0:03:00 CDTNotes: Do not exceed 4 gm/day. (Same as: Tylenol) dextromethorphan- 10 mL, Route: No Longer guaiFENesin 10 PO, Drug Form: Active 2015 [facility] mg-100 mg/5 mL SYRP, Dosing oral liquid Weight 80.5, kg, Q4H, PRN Cough, Start date: 11/08/15 0:04:00 CDT, Duration: 30 day, Stop date: 12/08/15 0:03:00 CDTNotes: (dextromethorp krause-guaifenesi n 10-100mg/5ml 10 ml oral SOLN ud) (Same as: Robitussin DM) Diphenhydramine 25 mg, 1 cap, No Longer Route: PO, Active 2015 [facility] Drug form: CAP, Q6H, Dosing Weight 80.5, kg, PRN Itching, Start date: 11/08/15 0:04:00 CDT, Duration: 30 day, Stop date: 12/08/15 0:03:00 CDTNotes: (Same as: Benadryl) Tessalon Perles 100 mg, 1 cap, No Longer Route: PO, Active 2015 [facility] Drug form: CAP, Q8H, Dosing Weight 80.5, kg, PRN Cough, Start date: 11/08/15 0:04:00 CDT, Duration: 30 day, Stop date: 12/08/15 0:03:00 CDTNotes: (Same As: Robinson Colon) "Do Not Crush" Ondansetron 4 mg, 2 mL, No Longer Route: IVP, Active 2015 [facility] Drug form: INJ, Q8H, Dosing Weight 80.5, kg, PRN Nausea & Vomiting, Start date: 11/08/15 0:04:00 CDT, Duration: 30 day, Stop date: 12/08/15 0:03:00 CDTNotes: (Same as: Zofran) MEDICATION WASTE Product Size: 4 mg Product Wasted: ___ mg Simethicone 80 mg, 1 tab, No Longer Route: PO, Active 2015 [facility] Drug form: CHEWTAB, Q6H, Dosing Weight 80.5, kg, PRN Gas, Start date: 11/08/15 0:04:00 CDT, Duration: 2 doses or times, Stop date: Limited # of timesNotes: (Same as: Mylicon) Bisacodyl 10 mg, 1 supp, No Longer Route: UT, 2015 [facility] Drug form: SUPP, Daily, Dosing Weight 80.5, kg, PRN Constipation, Start date: 11/08/15 0:04:00 CDT, Duration: 30 day, Stop date: 12/08/15 0:03:00 CDTNotes: (Same As: Dulcolax, Bisco-Lax) Saline Flush 0.9% 10 ml, Route: No Longer IVP, Drug Active 2015 [facility] Form: INJ, Dosing Weight 80.5, kg, PRN, PRN Line Flush, Start date: 11/08/15 0:02:00 CDT, Duration: 30 day, Stop date: 12/08/15 0:01:00 CDTNotes: (Same as: BD Posiflush) enalapril 0.625 mg, 0.5 No Longer mL, Route: 2015 [facility] IVP, Drug form: INJ, Q6H, Dosing Weight [...] Lipitor 40 mg, 1 tab, No Longer [place] Route: PO, Active 2014 [facility] Drug form: Center TAB, Bedtime, Dosing Weight 80.5, kg, Start date: 01/09/15 21:00:00, Duration: 30 day, Stop date: 02/07/15 21:00:00Notes: (Same as: Lipitor) Carafate 1 gm, 10 mL, No Longer [place] Route: PO, Active 2014 [facility] Drug form: [...] Drug Form: 2014 [facility] polysaccharide INJ, Daily, [place] type 1 vaccine / Start date: pneumococcal 01/09/15 capsular 9:00:00, polysaccharide Duration: 1 type 10A vaccine doses or / pneumococcal times, Stop capsular date: 01/09/15 polysaccharide 9:00:00Notes: type 11A vaccine (Same as: / pneumococcal Pneumovax 23) capsular Refrigerate polysaccharide type 12F vaccine / pneumococcal capsular polysacchar pantoprazole 40 mg, Route: No Longer Melba IVP, Drug Active 2014 [facility] form: INJ, [place] Q12H, Dosing Weight 80.5, kg, Start date: 01/09/15 9:00:00, Duration: 30 day, Stop date: 02/07/15 21:00:00Notes: For IV push reconstitute with 10 ml 0.9% sodium chloride and push over 2 minutes. (Same as: Protonix) Docusate Sodium 100 mg, 1 cap, No Longer Melba 100 MG Oral Route: PO, Active 2014 [facility] Capsule [Colace] Drug form: [place] CAP, BID, Dosing Weight 80.5, kg, Start date: 01/09/15 9:00:00, Duration: 30 day, Stop date: 02/07/15 17:00:00Notes: (Same as: Colace) (Do Not Crush) Folic Acid 1 mg, 1 tab, No Longer [place] Route: PO, Active 2014 [facility] Drug form: [place] TAB, Daily, Dosing Weight 80.5, kg, Start date: 01/09/15 9:00:00, Duration: 30 day, Stop date: 02/07/15 9:00:00Notes: (Same as: Folvite) Lisinopril 20 mg, 1 tab, No Longer [place] Route: PO, Active 2014 [facility] Drug form: [place] TAB, Daily, Dosing Weight 80.5, kg, Start date: 01/09/15 9:00:00, Duration: 30 day, Stop date: 02/07/15 9:00:00Notes: (Same as: Prinivil, Zestril) Plavix 75 mg, 1 tab, No Longer [place] Route: PO, Active 2014 [facility] Drug form: [place] TAB, Daily, Dosing Weight 80.5, kg, Start date: 01/09/15 9:00:00, Duration: 30 day, Stop date: 02/07/15 9:00:00Notes: (Same As: Plavix) Aspirin 81 MG 81 mg, 1 tab, No Longer [place] Enteric Coated Route: PO, Active 2014 [facility] Tablet Drug form: [place] ECTAB, Daily, Dosing Weight 80.5, kg, Start date: 01/09/15 9:00:00, Duration: 30 day, Stop date: 02/07/15 9:00:00Notes: Do not crush or chew. (Same As: Ecotrin) ferrous sulfate 325 mg, 1 tab, No Longer [place] Route: PO, Active 2014 [facility] Drug form: [place] ECTAB, BID-Meals, Dosing Weight 80.5, kg, Start date: 01/09/15 8:00:00, Stop date: 02/07/15 17:00:00Notes: Give with food. "Do Not Crush" Coreg 6.25 mg, 1 No Longer [place] tab, Route: Active 2014 [facility] PO, Drug form: [place] TAB, BID-Meals, Dosing Weight 80.5, kg, Start date: 01/09/15 8:00:00, Duration: 30 day, Stop date: 02/07/15 17:00:00Notes: Give with food. (Same As: Coreg) NS 1,000 mL 1,000 mL, No Longer [place] Rate: 75 Active 2014 [facility] ml/hr, Infuse Center over: 13.3 hr, Route: IV, Dosing Weight 80.5 kg, Total Volume: 1,000, Start date: 01/09/15 2:08:00, Duration: 30 day, Stop date: 02/08/15 2:07:00 Acetaminophen 325 mg, 1 tab, No Longer [place] Route: PO, Active 2014 [facility] Drug form: Center TAB, Q6H, Dosing Weight 80.5, kg, PRN Pain Score 1-3, Start date: 01/09/15 0:24:00, Duration: 30 day, Stop date: 02/08/15 0:23:00Notes: Do not exceed 4 gm/day. (Same as: Tylenol) Zofran 4 mg, 2 mL, No Longer [place] Route: IVP, Active 2014 [facility] Drug form: Center INJ, Q4H, Dosing Weight 80.5, kg, PRN Nausea, Start date: 01/09/15 0:23:00, Duration: 30 day, Stop date: 02/08/15 0:22:00Notes: (Same as: Zofran) MEDICATION WASTE Product Size: 4 mg Product Wasted: ___ mg Ranitidine 150 MG 150 mg=1 cap, No Longer [facility] Oral Capsule PO, BID, # 60 Active 2014 [facility] cap, 0 Center Refill(s) lisinopril 20 mg 20 mg=1 tab, Active [facility] oral tablet PO, Daily, # 2014 [facility] 30 tab, 0 [facility] Refill(s) atorvastatin 40 40 mg=1 tab, Active [facility] MG Oral Tablet PO, Bedtime, # 2015 [facility] [Lipitor] 30 tab, 0 [facility] Refill(s) carvedilol 6.25 6.25 mg=1 tab, Active [facility] MG Oral Tablet PO, BID, # 60 2015 [facility] [Coreg] tab, 0 Center Refill(s) clopidogrel 75 MG 75 mg=1 tab, Active [facility] Oral Tablet PO, Daily, # 2015 [facility] [Plavix] 30 tab, 0 [facility] Refill(s) Aspirin 81 MG 81 mg=1 tab, Active [facility] Enteric Coated PO, Daily, # 2014 Medical Tablet 90 tab, 3 Center Refill(s) Allergies, Adverse Reactions, Alerts Substance Category Reaction Severity Reaction Status Date Comments Source type Reported Immunizations Immunization Date Site Status Last Comments Source Given Updated pneumococcal Right completed Rolando [facility] 23-valent 5 deltoid Medical vaccine Center,[facility] Results Order Name Results Value Reference Date Interpretation Comments Source Range CHEM PANEL Calcium Lvl 7.9 mg/dL 8.5 - 10.5 11/17 [facility] CHEM PANEL Potassium 3.9 meq/L 3.5 - 5.1 11/17 [facility] CHEM PANEL Chloride Lvl 109 meq/L 95 - 109 11/17 [facility] CHEM PANEL CO2 24 meq/L 24 - 32 11/17 [facility] CHEM PANEL Creatinine 1.60 mg/dL 0.50 - 11/17 [facility] 1.40 [facility] CHEM PANEL Sodium Lvl 140 meq/L 135 - 145 11/17 [facility] CHEM PANEL eGFR 46 11/17 Result Comment: [...] is not recommended in the following populations: [address] Individuals with unstable creatinine concentrations, including [...] Lvl 88 mg/dL 70 - 99 11/17 [facility] CHEM PANEL BUN 21 mg/dL 7 - 22 11/17 [facility] CHEM PANEL AGAP 10.9 meq/L 10.0 - 11/17 MH 20. [facility] HEMATOLOGY Hgb 14.4 g/dL 14.0 - 11/17 MH 18.0 [facility] HEMATOLOGY RBC 4.50 M/CMM 4.70 - 11/17 MH 6.10 [facility] HEMATOLOGY WBC 5.0 K/CMM 3.7 - 10.4 11/17 [facility] HEMATOLOGY MCHC 33.6 g/dL 32.0 - 11/17 MH 36.0 [facility] HEMATOLOGY RDW 13.7 % 11.5 - 11/17 MH 14. [facility] HEMATOLOGY MCV 95.2 fL 80.0 - 11/17 MH 94.0 [facility] HEMATOLOGY MCH 32.0 pg 27.0 - 11/17 MH 31.0 [facility] HEMATOLOGY Hct 42.8 % 42.0 - 11/17 MH 54.0 [facility] HEMATOLOGY MPV 10.3 fL 7.4 - 10.4 11/17 [facility] HEMATOLOGY Platelet 144 K/CMM 133 - 450 11/17 [facility] HEMATOLOGY Plt Morph Normal 11/17 [facility] (11/18/15 5:49 AM) HEMATOLOGY Segs 44.7 % 45.0 - 11/17 MH 75.0 [facility] HEMATOLOGY Eosinophils 0.2 K/CMM 0.0 - 0.5 11/17 [facility] HEMATOLOGY Monocytes 10.0 % 2.0 - 12.0 11/17 [facility] HEMATOLOGY Eosinophils 3.5 % 0.0 - 4.0 11/17 [facility] HEMATOLOGY Monocytes # 0.5 K/CMM 0.0 - 0.8 11/17 [facility] HEMATOLOGY Lymphocytes 2.0 K/CMM 1.0 - 5.5 11/17 [facility] HEMATOLOGY Segs-Bands # 2.2 K/CMM 1.5 - 8.1 11/17 [facility] HEMATOLOGY Lymphocytes 40.4 % 20.0 - 11/17 MH 40.0 [facility] HEMATOLOGY Basophils 1.4 % 0.0 - 1.0 11/17 [facility] HEMATOLOGY Basophils # 0.1 K/CMM 0.0 - 0.2 11/17 [facility] CHEM PANEL eGFR 50 11/16 Result Comment: [...] is not recommended in the following populations: [facility] 3m2 Individuals with unstable creatinine concentrations, including [...] Lvl 84 mg/dL 70 - 99 11/16 [facility] CHEM PANEL Calcium Lvl 8.4 mg/dL 8.5 - 10.5 11/16 [facility] CHEM PANEL AGAP 13.3 meq/L 10.0 - 11/16 MH 20.0 [facility] CHEM PANEL CO2 22 meq/L 24 - 32 11/16 [facility] CHEM PANEL Potassium 4.3 meq/L 3.5 - 5.1 11/16 Lvl [facility] CHEM PANEL Chloride Lvl 109 meq/L 95 - 109 11/16 [facility] CHEM PANEL Sodium Lvl 140 meq/L 135 - 145 11/16 [facility] CHEM PANEL BUN 23 mg/dL 7 - 22 11/16 [facility] CHEM PANEL Creatinine 1.50 mg/dL 0.50 - 11/16 Lvl 1.40 [facility] Retroperit Retroperiton The right kidney [id number] x 4.5 x 5.4 cm. The left kidney measures 10.2 x 5.6 x 5.3 cm. Accentuation of the corticomedullary differentiation is noted at the kidneys bilaterally. The urinary bladder [facility] complete is unremarkable sonographically. Neither ureteral jet is identified within the urinary bladder lumen. [facility] w w Doppler US Doppler US The [...] Lvl 110 meq/L 95 - 109 11/15 [facility] ELECTROLYT Sodium Lvl 139 meq/L 135 - 145 11/15 [facility] ELECTROLYT Creatinine 1.80 mg/dL 0.50 - 11/15 ES Lvl 1.40 /2015 [facility] ELECTROLYT eGFR 40 11/15 Result Comment: The eGFR is calculated using the CKD-EPI formula. In most young, healthy individuals the eGFR will be >90 mL/ min/1.73m2. The eGFR declines with age. An eGFR of 60-89 may be normal in [facility] mL/min/1.7 some populations, particularly the elderly, for whom the CKD-EPI formula has not been extensively validated. Use of the eGFR is not recommended in the following populations: [facility] 3m2 Individuals with unstable creatinine concentrations, including [...] CO2 22 meq/L 24 - 32 11/15 [facility] ELECTROLYT Calcium Lvl 8.0 mg/dL 8.5 - 10.5 11/15 ES [facility] ELECTROLYT AGAP 11.3 meq/L 10.0 - 11/15 ES 20.0 [facility] ELECTROLYT Potassium 4.3 meq/L 3.5 - 5.1 11/15 ES Lvl [facility] ELECTROLYT BUN 28 mg/dL 7 - 22 11/15 ES [facility] ELECTROLYT Glucose Lvl 87 mg/dL 70 - 99 11/15 [facility] HEMATOLOGY Hct 48.9 % 42.0 - 11/15 54.0 [facility] HEMATOLOGY WBC 6.6 K/CMM 3.7 - 10.4 11/15 /2015 [facility] HEMATOLOGY RBC 5.05 M/CMM 4.70 - 11/15 6.10 /2015 [facility] HEMATOLOGY Hgb 16.2 g/dL 14.0 - 11/15 18.0 /2015 [facility] HEMATOLOGY MPV 10.6 fL 7.4 - 10.4 11/15 [facility] HEMATOLOGY MCH 32.2 pg 27.0 - 11/15 31.0 /2015 [facility] HEMATOLOGY MCHC 33.2 g/dL 32.0 - 11/15 36.0 /2015 [facility] HEMATOLOGY RDW 13.9 % 11.5 - 11/15 14.5 /2015 [facility] HEMATOLOGY Platelet 144 K/CMM 133 - 450 11/15 [facility] HEMATOLOGY MCV 96.9 fL 80.0 - 11/15 94.0 [facility] HEMATOLOGY Eosinophils 4.6 % 0.0 - 4.0 11/15 [facility] HEMATOLOGY Monocytes 15.7 % 2.0 - 12.0 11/15 [facility] HEMATOLOGY Segs-Bands # 2.2 K/CMM 1.5 - 8.1 11/15 [facility] HEMATOLOGY Basophils 1.3 % 0.0 - 1.0 11/15 [facility] HEMATOLOGY Lymphocytes 3.0 K/CMM 1.0 - 5.5 11/15 /2015 [facility] HEMATOLOGY Monocytes # 1.0 K/CMM 0.0 - 0.8 11/15 [facility] HEMATOLOGY Eosinophils 0.3 K/CMM 0.0 - 0.5 11/15 # /2015 [facility] HEMATOLOGY Basophils # 0.1 K/CMM 0.0 - 0.2 11/15 [facility] HEMATOLOGY Lymphocytes 45.6 % 20.0 - 11/15 40.0 /2015 [facility] HEMATOLOGY Segs 32.8 % 45.0 - 11/15 75.0 [facility] URINE AND UA null 0.1 - 1.0 11/15 STOOL Urobilinogen /2015 [facility] URINE AND UA Sq Epi Occasional Few /LPF 11/15 STOOL /LPF /2015 [facility] URINE AND UA WBC 2 /HPF 0 - 5 11/15 STOOL /2015 [facility] URINE AND UA Nitrite Negative Negative 11/15 STOOL /2015 [facility] (11/16/15 1:57 AM) URINE AND UA Leuk Est Negative Negative 11/15 STOOL [facility] (11/16/15 1:57 AM) URINE AND UA RBC 1 /HPF 0 - 2 11/15 STOOL [facility] URINE AND UA Mucus Few /LPF None Seen 11/15 STOOL /LPF /2015 [facility] URINE AND UA Hyal Cast 9 /LPF 0 - 2 11/15 STOOL [facility] URINE AND UA Bacteria Occasional None Seen 11/15 STOOL /HPF /HPF [facility] URINE AND UA Turbidity Clear Clear 11/15 STOOL [facility] (11/16/15 1:57 AM) URINE AND UA pH 5.0 5.0 - 8.0 11/15 STOOL [facility] URINE AND UA Spec Grav 1.015 <=1.030 11/15 STOOL [facility] URINE AND UA Bili Negative Negative 11/15 STOOL [facility] *NA* (11/16/15 1:57 AM) URINE AND UA Protein Negative Negative 11/15 STOOL mg/dL mg/dL [facility] URINE AND UA Glucose 50 mg/dL Negative 11/15 STOOL mg/dL [facility] URINE AND UA Blood Small Negative 11/15 STOOL [facility] *ABN* (11/16/15 1:57 AM) URINE AND UA Ketones Negative Negative 11/15 STOOL mg/dL mg/dL [facility] URINE AND UA Color Light Yellow Yellow 11/15 [facility] *NA* (11/16/15 1:57 AM) URINE CHEM U Prot/Creat 0.2 11/15 [facility] URINE CHEM U Eos None Seen None Seen 11/15 [facility] (11/16/15 1:57 AM) URINE CHEM U Creatinine 140.00 11/15 mg/dL [facility] URINE CHEM U Protein 32.2 mg/dL 11/15 [facility] TOXICOLOGY Phenytoin 0.92 ug/ml 1.00 - 11/14 Free 2.00 [facility] CHEM PANEL Phosphorus 3.5 mg/dL 2.5 - 4.5 11/13 [facility] CHEM PANEL A/G Ratio 0.7 0.7 - 1.6 11/13 [facility] CHEM PANEL Globulin 4.2 g/dL 2.0 - 4.0 11/13 [facility] CHEM PANEL B/C Ratio 16 6 - 25 11/13 [facility] CHEM PANEL ASPARTATE 22 unit/L 0 - 37 11/13 TRANSAMINASE /2015 [facility] CHEM PANEL ALANINE 31 unit/L 0 - 65 11/13 AMINOTRANSFE /2015 [facility] RASE CHEM PANEL Albumin Lvl 3.1 g/dL 3.5 - 5.0 11/13 [facility] CHEM PANEL Total 7.3 g/dL 6.4 - 8.4 11/13 Protein [facility] CHEM PANEL Bili Total 0.4 mg/dL 0.2 - 1.3 11/13 [facility] CHEM PANEL Alk Phos 46 unit/L 39 - 136 11/13 [facility] CHEM PANEL Magnesium 2.1 mg/dL 1.8 - 2.4 11/13 Lvl /2015 [facility] HEMATOLOGY MPV 11.1 fL 7.4 - 10.4 11/13 [facility] HEMATOLOGY MCH 31.9 pg 27.0 - 11/13 31.0 [facility] HEMATOLOGY MCHC 33.1 g/dL 32.0 - 11/13 36.0 [facility] HEMATOLOGY Platelet 99 K/CMM 133 - 450 11/13 [facility] HEMATOLOGY RDW 13.7 % 11.5 - 11/13 14.5 [facility] HEMATOLOGY WBC 4.4 K/CMM 3.7 - 10.4 11/13 [facility] HEMATOLOGY MCV 96.4 fL 80.0 - 11/13 94.0 [facility] HEMATOLOGY RBC 5.03 M/CMM 4.70 - 11/13 MH 6.10 /2015 [facility] HEMATOLOGY Hgb 16.1 g/dL 14.0 - 11/13 18.0 [facility] HEMATOLOGY Hct 48.5 % 42.0 - 11/13 54.0 [facility] HEMATOLOGY Monocytes # 1.0 K/CMM 0.0 - 0.8 11/13 [facility] HEMATOLOGY Eosinophils 0.3 K/CMM 0.0 - 0.5 11/13 MH # /2015 [facility] HEMATOLOGY Lymphocytes 1.0 K/CMM 1.0 - 5.5 11/13 MH # /2015 [facility] HEMATOLOGY Basophils 1.2 % 0.0 - 1.0 11/13 [facility] HEMATOLOGY Eosinophils 6.6 % 0.0 - 4.0 11/13 [facility] HEMATOLOGY Monocytes 23.6 % 2.0 - 12.0 11/13 [facility] HEMATOLOGY Basophils # 0.1 K/CMM 0.0 - 0.2 11/13 [facility] HEMATOLOGY Segs-Bands # 2.1 K/CMM 1.5 - 8.1 11/13 [facility] HEMATOLOGY Segs 46.6 % 45.0 - 11/13 MH 75.0 /2016 [facility] HEMATOLOGY Lymphocytes 22.0 % 20.0 - 11/13 MH 40.0 /2016 [facility] IMMUNOLOGY Prealbumin 21.8 mg/dL 18.0 - 11/13 45.0 2016 [facility] Carotid Carotid Study: Carotid artery Doppler bilat US ; Age: 59 years y/o Male 11/09 - artery - [facility] Doppler Doppler Clinical Indication: Transient cerebral ischem; [...] occlusion High, low, or Variable undetectable SL: [id number] CHEM PANEL Phosphorus 3.0 mg/dL 2.5 - 4.5 11/08 [facility] CHEM PANEL eGFR 63 11/08 Result Comment: [...] is not recommended in the following populations: [place] [address] Individuals with unstable creatinine concentrations, including patients [...] Lvl 90 mg/dL 70 - 99 11/08 [facility] CHEM PANEL BUN 12 mg/dL 7 - 22 11/08 [facility] CHEM PANEL Albumin Lvl 3.0 g/dL 3.5 - 5.0 11/08 [facility] CHEM PANEL CO2 23 meq/L 24 - 32 11/08 [facility] CHEM PANEL Chloride Lvl 107 meq/L 95 - 109 11/08 [facility] CHEM PANEL Total 7.0 g/dL 6.4 - 8.4 11/08 [facility] CHEM PANEL Calcium Lvl 8.4 mg/dL 8.5 - 10.5 11/08 [facility] CHEM PANEL Creatinine 1.40 mg/dL 0.50 - 11/08 Lvl 1.40 [place] CHEM PANEL Sodium Lvl 141 meq/L 135 - 145 11/08 [facility] CHEM PANEL Potassium 3.6 meq/L 3.5 - 5.1 11/08 Lvl [facility] CHEM PANEL ASPARTATE 19 unit/L 0 - 37 11/08 TRANSAMINASE [facility] CHEM PANEL ALANINE 18 unit/L 0 - 65 11/08 AMINOTRANSFE /2015 [facility] RASE CHEM PANEL Bili Total 1.2 mg/dL 0.2 - 1.3 11/08 [facility] CHEM PANEL Alk Phos 50 unit/L 39 - 136 11/08 [facility] CHEM PANEL B/C Ratio 9 6 - 25 11/08 [facility] CHEM PANEL A/G Ratio 0.8 0.7 - 1.6 11/08 [facility] CHEM PANEL Globulin 4.0 g/dL 2.0 - 4.0 11/08 [facility] CHEM PANEL AGAP 14.6 meq/L 10.0 - 11/08 MH 20.0 [facility] CHEM PANEL Magnesium 1.8 mg/dL 1.8 - 2.4 11/08 Lvl /2015 [facility] HEMATOLOGY Lymphocytes 31.3 % 20.0 - 11/08 MH 40.0 [facility] HEMATOLOGY Monocytes 12.1 % 2.0 - 12.0 11/08 [facility] HEMATOLOGY Segs 54.5 % 45.0 - 11/08 MH 75.0 [facility] HEMATOLOGY Basophils 0.5 % 0.0 - 1.0 11/08 [facility] HEMATOLOGY Eosinophils 1.6 % 0.0 - 4.0 11/08 [facility] HEMATOLOGY Segs-Bands # 3.5 K/CMM 1.5 - 8.1 11/08 [facility] HEMATOLOGY Eosinophils 0.1 K/CMM 0.0 - 0.5 11/08 MH /2015 [facility] HEMATOLOGY Basophils # 0.0 K/CMM 0.0 - 0.2 11/08 [facility] HEMATOLOGY Monocytes # 0.8 K/CMM 0.0 - 0.8 11/08 [facility] HEMATOLOGY Lymphocytes 2.0 K/CMM 1.0 - 5.5 11/08 MH [facility] HEMATOLOGY Platelet 78 K/CMM 133 - 450 11/08 [facility] HEMATOLOGY MPV 12.0 fL 7.4 - 10.4 11/08 [facility] HEMATOLOGY RDW 14.1 % 11.5 - 11/08 MH 14. [facility] HEMATOLOGY MCH 32.2 pg 27.0 - 11/08 MH 31.0 [facility] HEMATOLOGY MCHC 33.2 g/dL 32.0 - 11/08 MH 36.0 [facility] HEMATOLOGY Hgb 16.3 g/dL 14.0 - 11/08 18.0 /2015 [facility] HEMATOLOGY Hct 49.0 % 42.0 - 11/08 54.0 [facility] HEMATOLOGY MCV 96.9 fL 80.0 - 11/08 94.0 [facility] HEMATOLOGY WBC 6.5 K/CMM 3.7 - 10.4 11/08 [facility] HEMATOLOGY RBC 5.06 M/CMM 4.70 - 11/08 6.10 /2015 [facility] Brain wo Brain wo EXAM: MRI BRAIN WITHOUT CONTRAST 11/08 - contrast contrast MRI /2015 - [facility] MRI DATE: 11/08/2015 12:02 AM CDT Read [...] ng/mL 0.00 - 11/07 ENZYMES 0.40 /2016 [facility] ELECTROLYT AGAP 14.7 meq/L 10.0 - 11/07 ES 20.0 [facility] ELECTROLYT eGFR 58 11/07 Result Comment: The [...] is not recommended in the following populations: [facility] 3m2 Individuals with unstable creatinine concentrations, including [...] Lvl 110 meq/L 95 - 109 11/07 [facility] ELECTROLYT BUN 18 mg/dL 7 - 22 11/07 [facility] ELECTROLYT Sodium Lvl 143 meq/L 135 - 145 11/07 [facility] ELECTROLYT Creatinine 1.50 mg/dL 0.50 - 11/07 [facility] Lvl 1.40 [facility] ELECTROLYT Potassium 3.7 meq/L 3.5 - 5.1 11/07 [facility] Lv [facility] ELECTROLYT CO2 22 meq/L 24 - 32 11/07 [facility] ELECTROLYT Calcium Lvl 8.5 mg/dL 8.5 - 10.5 11/07 [facility] ELECTROLYT Glucose Lvl 96 mg/dL 70 - 99 11/07 [facility] HEMATOLOGY MCH 32.0 pg 27.0 - 11/07 31.0 [facility] HEMATOLOGY RDW 14.0 % 11.5 - 11/07 14. [facility] HEMATOLOGY MCHC 33.2 g/dL 32.0 - 11/07 36.0 [facility] HEMATOLOGY MCV 96.6 fL 80.0 - 11/07 94.0 [facility] HEMATOLOGY Hct 44.4 % 42.0 - 11/07 54.0 [facility] HEMATOLOGY WBC 9.0 K/CMM 3.7 - 10.4 11/07 [facility] HEMATOLOGY Hgb 14.7 g/dL 14.0 - 11/07 18.0 [facility] HEMATOLOGY RBC 4.60 M/CMM 4.70 - 11/07 6.10 [facility] HEMATOLOGY MPV 12.1 fL 7.4 - 10.4 11/07 [facility] HEMATOLOGY Platelet 91 K/CMM 133 - 450 11/07 [facility] HEMATOLOGY Basophils 0.7 % 0.0 - 1.0 11/07 [facility] HEMATOLOGY Eosinophils 0.4 % 0.0 - 4.0 11/07 [facility] HEMATOLOGY Monocytes 8.9 % 2.0 - 12.0 11/07 [facility] HEMATOLOGY RBC Morph Normal 11/07 [facility] (11/08/15 6:00 AM) HEMATOLOGY Plt Morph Normal 11/07 [facility] (11/08/15 6:00 AM) HEMATOLOGY Lymphocytes 1.7 K/CMM 1.0 - 5.5 11/07 MH # /2016 [facility] HEMATOLOGY Monocytes # 0.8 K/CMM 0.0 - 0.8 11/07 [facility] HEMATOLOGY Basophils # 0.1 K/CMM 0.0 - 0.2 11/07 [facility] HEMATOLOGY Segs-Bands # 6.4 K/CMM 1.5 - 8.1 11/07 [facility] HEMATOLOGY Lymphocytes 19.1 % 20.0 - 11/07 40.0 [facility] HEMATOLOGY Segs 70.9 % 45.0 - 11/07 75.0 [facility] CARDIAC Troponin-I 0.03 ng/mL 0.00 - 11/07 ENZYMES 0.40 [facility] CHEM PANEL eGFR 53 11/07 Result Comment: [...] is not recommended in the following populations: [address] Individuals with unstable creatinine concentrations, including [...] Lvl 8.3 mg/dL 8.5 - 10.5 11/07 [facility] CHEM PANEL Chloride Lvl 109 meq/L 95 - 109 11/07 [facility] CHEM PANEL CO2 23 meq/L 24 - 32 11/07 [facility] CHEM PANEL BUN 19 mg/dL 7 - 22 11/07 /2015 [facility] CHEM PANEL Glucose Lvl 100 mg/dL 70 - 99 11/07 /2015 [facility] CHEM PANEL Sodium Lvl 142 meq/L 135 - 145 11/07 [facility] CHEM PANEL Potassium 4.0 meq/L 3.5 - 5.1 11/07 Result MH Lvl /2015 Comment: [facility] Specimen Slightly Hemolyzed. CHEM PANEL Creatinine 1.60 mg/dL 0.50 - 11/07 Lvl 1.40 /2015 [facility] CHEM PANEL AGAP 14.0 meq/L 10.0 - 11/07 MH 20.0 /2015 [facility] DRUG U Benzodia Negative Negative 11/07 SCREEN Scr [facility] *NA* (11/08/15 3:02 AM) DRUG U Dian Scr Negative Negative 11/07 SCREEN [facility] *NA* (11/08/15 3:02 AM) DRUG U Amph Scr Negative Negative 11/07 SCREEN [facility] *NA* (11/08/15 3:02 AM) DRUG U Cannab Scr Positive Negative 11/07 SCREEN [facility] *ABN* (11/08/15 3:02 AM) DRUG U Cocaine Negative Negative 11/07 SCREEN Scr [facility] *NA* (11/08/15 3:02 AM) DRUG U Phencyc Negative Negative 11/07 SCREEN Scr [facility] *NA* (11/08/15 3:02 AM) DRUG U Opiate Scr Negative Negative 11/07 SCREEN [facility] *NA* (11/08/15 3:02 AM) DRUG UDS Note See Note 11/07 SCREEN /2015 [facility] (11/08/15 3:02 AM) IMMUNOLOGY Treponemal Non Reactive Non 11/07 Scr Reactive /2015 [facility] *NA* (11/08/15 3:02 AM) LIPIDS Trig 46 mg/dL <=149 11/07 mg/dL [facility] LIPIDS Chol 88 mg/dL <=199 11/07 mg/dL [facility] LIPIDS HDL 42 mg/dL >=61 mg/dL 11/07 [facility] LIPIDS LDL 37 mg/dL <=99 mg/dL 11/07 (Calculated) /2015 [facility] LIPIDS VLDL 9 11/07 /2015 [facility] LIPIDS CHD Risk 2.10 4.00 - 11/07 7.30 /2015 [facility] SPECIAL Hgb A1C 5.7 % <=5.6 % 11/07 CHEMISTRY [facility] URINE AND UA Ketones Negative Negative 11/07 STOOL mg/dL mg/dL [facility] URINE AND UA Glucose 50 mg/dL Negative 11/07 STOOL mg/dL [facility] URINE AND UA Protein Negative Negative 11/07 STOOL mg/dL mg/dL [facility] URINE AND UA pH 6.0 5.0 - 8.0 11/07 STOOL [facility] URINE AND UA Spec Grav 1.012 <=1.030 11/07 STOOL [facility] URINE AND UA Turbidity Clear Clear 11/07 STOOL [facility] (11/08/15 3:02 AM) URINE AND UA Color Light Yellow Yellow 11/07 STOOL [facility] *NA* (11/08/15 3:02 AM) URINE AND UA Mucus Few /LPF None Seen 11/07 STOOL /LPF [facility] URINE AND UA Bacteria Occasional None Seen 11/07 STOOL /HPF /HPF [facility] URINE AND UA RBC 21 /HPF 0 - 2 11/07 STOOL [facility] URINE AND UA WBC 25 /HPF 0 - 5 11/07 STOOL [facility] URINE AND UA Sq Epi Occasional Few /LPF 11/07 STOOL /LPF [facility] URINE AND UA Leuk Est Negative Negative 11/07 STOOL [facility] (11/08/15 3:02 AM) URINE AND UA Nitrite Negative Negative 11/07 STOOL [facility] (11/08/15 3:02 AM) URINE AND UA Blood Moderate Negative 11/07 [facility] *ABN* (11/08/15 3:02 AM) URINE AND UA Bili Negative Negative 11/07 STOOL [facility] *NA* (11/08/15 3:02 AM) URINE AND UA null 0.1 - 1.0 11/07 [facility] Urobilinogen [facility] CHEM PANEL Magnesium 1.8 mg/dL 1.8 - 2.4 01/10 [facility] Lvl /2014 [facility] CHEM PANEL Phosphorus 3.1 mg/dL 2.5 - 4.5 01/10 [facility]2014 [facility] CHEM PANEL eGFR 84 01/10 1Result Comment: The eGFR is calculated using the CKD-EPI formula. In most young, healthy individuals the eGFR will be >90 mL/ min/1.73m2. The eGFR declines with age. An eGFR of 60-89 may be normal in [facility] mL/min/1. some populations, particularly the elderly, for whom the CKD-EPI formula has not been extensively validated. Use of the eGFR is not recommended in the following populations: [address] Individuals with unstable creatinine concentrations, including [...] Creatinine 1.1 mg/dL 0.5 - 1.4 01/10 [facility] CHEM PANEL Potassium 3.6 meq/L 3.5 - 5.1 01/10 [facility] CHEM PANEL Sodium Lvl 141 meq/L 135 - 145 01/10 [facility]2014 [facility] CHEM PANEL Calcium Lvl 8.2 mg/dL 8.5 - 10.5 01/10 [facility]2014 [facility] CHEM PANEL CO2 28 meq/L 24 - 32 01/10 [facility] CHEM PANEL Chloride Lvl 106 meq/L 95 - 109 01/10 [facility] CHEM PANEL AGAP 10.6 meq/L 10.0 - 01/10 [facility] 20.0 [facility] CHEM PANEL Glucose Lvl 87 mg/dL 70 - 99 01/10 3Interpretive Data: Adult reference range values reflect the clinical guidelines of the [place] [employer]. [facility] CHEM PANEL BUN 6 mg/dL - 01/10 [facility] HEMATOLOGY Tear Cell Moderate None Seen 01/10 [facility] [place] (01/10/15 3:59 AM) HEMATOLOGY Basophils # 0.1 K/CMM 0.0 - 0.2 01/10 [facility]2014 [facility] HEMATOLOGY Anisocyte 1+ None Seen 01/10 [facility] [place] (01/10/15 3:59 AM) HEMATOLOGY Microcyte 2+ None Seen 01/10 [facility] (01/10/15 3:59 AM) HEMATOLOGY Hypochrom 1+ None Seen 01/10 MH [facility] (01/10/15 3:59 AM) Center HEMATOLOGY Polychrom Moderate None Seen 01/10 [facility] *ABN* Center (01/10/15 3:59 AM) HEMATOLOGY Plt Morph Normal 01/10 [facility] (01/10/15 3:59 AM) [place] HEMATOLOGY Segs 68.8 % 45.0 - 01/10 [place] 75.0 /2014 [facility] HEMATOLOGY Lymphocytes 15.6 % 20.0 - 01/10 [place] 40.0 [facility] HEMATOLOGY Eosinophils 0.2 K/CMM 0.0 - 0.5 01/10 # /2014 [facility] HEMATOLOGY Basophils 1.4 % 0.0 - 1.0 01/10 [facility] HEMATOLOGY Segs-Bands # 5.5 K/CMM 1.5 - 8.1 01/10 [facility] HEMATOLOGY Lymphocytes 1.3 K/CMM 1.0 - 5.5 01/10 /2014 [facility] HEMATOLOGY Monocytes # 0.9 K/CMM 0.0 - 0.8 01/10 [facility] HEMATOLOGY Monocytes 11.1 % 2.0 - 12.0 01/10 [facility] HEMATOLOGY Eosinophils 3.1 % 0.0 - 4.0 01/10 [facility] HEMATOLOGY MCHC 31.5 g/dL 32.0 - 01/10 [place] 36.0 [facility] HEMATOLOGY Hct 29.2 % 42.0 - 01/10 54.0 /2014 [facility] HEMATOLOGY MCH 21.7 pg 27.0 - 01/10 [place] 31.0 [facility] HEMATOLOGY Hgb 9.2 g/dL 14.0 - 01/10 [place] 18.0 [facility] HEMATOLOGY MCV 69.0 fL 80.0 - 01/10 [place] 94.0 [facility] HEMATOLOGY WBC 8.0 K/CMM 3.7 - 10.4 01/10 [facility] HEMATOLOGY RBC 4.23 M/CMM 4.70 - 01/10 [place] 6.10 [facility] HEMATOLOGY MPV 9.0 fL 7.4 - 10.4 01/10 [facility] HEMATOLOGY Platelet 288 K/CMM 133 - 450 01/10 [facility] HEMATOLOGY RDW 25.9 % 11.5 - 01/10 14. [facility] HEMATOLOGY Hct 29.1 % 42.0 - 01/09 .0 [facility] HEMATOLOGY Hgb 9.1 g/dL 14.0 - 01/09 . [facility] HEMATOLOGY Hgb 8.8 g/dL 14.0 - 01/09 .0 [facility] HEMATOLOGY Hct 29.0 % 42.0 - 01/09 .0 [facility] CHEM PANEL Magnesium 2.0 mg/dL 1.8 - 2.4 01/09 [facility] ELECTROLYT AGAP 11.7 meq/L 10.0 - 01/09 [facility] . [facility] ELECTROLYT CO2 28 meq/L 24 - 32 01/09 [facility] ELECTROLYT Calcium Lvl 8.3 mg/dL 8.5 - 10.5 01/09 [facility] ELECTROLYT Chloride Lvl 104 meq/L 95 - 109 01/09 [facility] ELECTROLYT eGFR 94 01/09 2Result Comment: The eGFR is calculated using the CKD-EPI formula. In most young, healthy individuals the eGFR will be >90 mL/ min/1.73m2. The eGFR declines with age. An eGFR of 60-89 may be normal in [facility] mL/min/1. some populations, particularly the elderly, for whom the CKD-EPI formula has not been extensively validated. Use of the eGFR is not recommended in the following populations: [address] Individuals with unstable creatinine concentrations, including [...] reference range values reflect the clinical guidelines [facility] of the [place] [employer]. [facility] ELECTROLYT Sodium Lvl 140 meq/L 135 - 145 01/09 [facility] ELECTROLYT Potassium 3.7 meq/L 3.5 - 5.1 01/09 [facility] ES Lvl [facility] ELECTROLYT Creatinine 1.0 mg/dL 0.5 - 1.4 01/09 [facility] ES Lv [facility] ELECTROLYT BUN 10 mg/dL 7 - 01/09 [facility] ES [facility] HEMATOLOGY PT 13.9 s 12.0 - 01/09 [place] 14.7 /2014 [facility] HEMATOLOGY PTT 34.2 s 22.9 - 01/09 6Interpretive [facility] 35.8 Data: [facility] Range: 57 - 92 [facility] HEMATOLOGY INR 1.07 0.85 - 01/09 5Interpretive Data: RECOMMENDED RANGES FOR PROTIME INR: [facility] 1. 2.0-3.0 for most medical and surgical thromboembolic states. Medical 2.5-3.5 for artificial heart valves and recurrent embolism. Center INR SHOULD BE USED ONLY FOR PATIENTS ON STABLE ANTICOAGULANT THERAPY. HEMATOLOGY RBC 4.24 M/CMM 4.70 - 01/09 6.10 [facility] HEMATOLOGY MCH 21.2 pg 27.0 - 01/09 31.0 [facility] HEMATOLOGY MCV 68.3 fL 80.0 - 01/09 [place] 94.0 [facility] HEMATOLOGY Platelet 312 K/CMM 133 - 450 01/09 [facility] HEMATOLOGY RDW 25.6 % 11.5 - 01/09 14.5 [facility] HEMATOLOGY MCHC 31.1 g/dL 32.0 - 01/09 [place] 36.0 /2014 [facility] HEMATOLOGY MPV 8.8 fL 7.4 - 10.4 01/09 [facility] HEMATOLOGY WBC 9.9 K/CMM 3.7 - 10.4 01/09 [facility] HEMATOLOGY Hypochrom 1+ None Seen 01/09 /2014 [facility] (01/09/15 1:35 AM) Center HEMATOLOGY Lymphocytes 1.6 K/CMM 1.0 - 5.5 01/09 # /2014 [facility] HEMATOLOGY Lymphocytes 16.6 % 20.0 - 01/09 [place] 40.0 /2014 [facility] HEMATOLOGY Monocytes 9.5 % 2.0 - 12.0 01/09 [facility] HEMATOLOGY Segs 71.1 % 45.0 - 01/09 [place] 75.0 /2014 [facility] HEMATOLOGY Plt Morph Normal 01/09 [facility] (01/09/15 1:35 AM) [place] HEMATOLOGY Segs-Bands # 7.0 K/CMM 1.5 - 8.1 01/09 [facility]2014 [facility] HEMATOLOGY Eosinophils 1.6 % 0.0 - 4.0 01/09 [facility]2014 [facility] HEMATOLOGY Anisocyte 1+ None Seen 01/09 [facility] *ABN* Center (01/09/15 1:35 AM) HEMATOLOGY Basophils 1.2 % 0.0 - 1.0 01/09 2014 [facility] HEMATOLOGY Eosinophils 0.2 K/CMM 0.0 - 0.5 01/09 [facility] /2014 [facility] HEMATOLOGY Microcyte 3+ None Seen 01/09 [facility] *NA* Center (01/09/15 1:35 AM) HEMATOLOGY Basophils # 0.1 K/CMM 0.0 - 0.2 01/09 2014 [facility] HEMATOLOGY Monocytes # 0.9 K/CMM 0.0 - 0.8 01/[address] Vital Signs Vital Sign Value Date Comments Source Heart Rate 66 11/18/2015 [facility] Systolic (mm Hg) 152 11/18/2015 [facility] Diastolic (mm Hg) 108 11/18/2015 [facility] Temperature Oral (F) 98.0 F 11/18/2015 [facility] Respitory Rate 20 11/18/2015 [facility] Diastolic (mm Hg) 107 11/18/2015 [facility] Systolic (mm Hg) 159 11/18/2015 [facility] Heart Rate 64 11/18/2015 [facility] Respitory Rate 20 11/18/2015 [facility] Diastolic (mm Hg) 99 11/18/2015 [facility] Systolic (mm Hg) 150 11/18/2015 [facility] Heart Rate 59 11/18/2015 [facility] Temperature Oral (F) 98.0 F 11/18/2015 [facility] Respitory Rate 20 11/18/2015 [facility] Temperature Oral (F) 98.6 F 11/17/2015 [facility] BMI Calculated 28.47 11/12/2015 [facility] Weight 87.443 11/12/2015 [facility] Height 175.26 cm 11/12/2015 [facility] Systolic (mm Hg) 140 11/11/2015 [facility] Diastolic (mm Hg) 103 11/11/2015 [facility] Temperature Oral (F) 99.2 F 11/11/2015 [facility] Respitory Rate 18 11/11/2015 [facility] Heart Rate 73 11/11/2015 [facility] Respitory Rate 18 11/11/2015 [facility] Systolic (mm Hg) 153 11/11/2015 [facility] Diastolic (mm Hg) 111 11/11/2015 [facility] Heart Rate 73 11/11/2015 [facility] Temperature Oral (F) 98.3 F 11/11/2015 [facility] Temperature Oral (F) 98.4 F 11/11/2015 [facility] Respitory Rate 18 11/11/2015 [facility] Systolic (mm Hg) 136 11/11/2015 [facility] Diastolic (mm Hg) 97 11/11/2015 [facility] Heart Rate 73 11/11/2015 [facility] BMI Calculated 34.05 11/08/2015 [facility] Height 165.1 cm 11/08/2015 [facility] Weight 92.813 11/08/2015 [facility] Temperature Oral (F) 96.6 F 01/10/2015 [facility] Respitory Rate 21 01/10/2015 [facility] Respitory Rate 24 01/10/2015 [facility] Systolic (mm Hg) 127 01/10/2015 [facility] Diastolic (mm Hg) 79 01/10/2015 [facility] Systolic (mm Hg) 157 01/10/2015 [facility] Diastolic (mm Hg) 113 01/10/2015 [facility] Respitory Rate 26 01/10/2015 [facility] Systolic (mm Hg) 144 01/10/2015 [facility] Diastolic (mm Hg) 98 01/10/2015 [facility] Temperature Oral (F) 97.6 F 01/10/2015 [facility] Temperature Oral (F) 95.9 F 01/10/2015 [facility] Height 182.88 cm 01/09/2015 [facility] BMI Calculated 24.07 01/09/2015 [facility] Weight 80.5 01/09/2015 [facility] Encounters Location Location Encounter Encounter Reason Attending ADM DC Status Source Details Type Number For Provider Date Date Visit [facility] [id number] Tobias 01/10 01/10 Melba Lara Observation 1 Jacey /2014 [facility] [id number] Jameel 11/07 11/10 Marco Machado /2015 [facility] Inpatient [id number] Carlos Enrique Allam 11/10 11/17 [facility] Rehab [facility] Rehabilita ion Procedures Procedure Code Date Perfomer Comments Source Hip replacement [id number] 07/22/2010 [facility] Hip replacement [id number] 07/22/2010 [facility] Stent [id number] 1CARDIAC [facility] placement<sup>1</ [facility] sup> Stent [id number] CARDIAC [facility] placement<sup>1</ sup>
--- NOTE | 2018-08-29 13:03 | RAD REPORT ---
EXAM DESCRIPTION: CT - Head Brain Wo Cont - 08/29/2018 12:51 pm CLINICAL HISTORY: Seizure, transient alteration of awareness COMPARISON: March 2017 TECHNIQUE: Axial 5 mm thick images of the head were obtained without IV contrast. All CT scans are performed using dose optimization technique as appropriate and may include automated exposure control or mA/KV adjustment according to patient size. FINDINGS: No intracranial hemorrhage is present. No mass, edema or shift of midline structures. Ther e is a large area of encephalomalacia involving the left parietal lobe extending into the left tempor al lobe. This is stable from the comparison. Left lateral ventricle has enlarged in proportion to thi s volume loss. There is a 3 centimeter area of diminished attenuation now present in the lateral righ t frontal lobe. This was not present in 2017. Diminished attenuation would support a subacute infarct ion. Acute component along the margin cannot be excluded. Underlying atrophy and chronic ischemic emerson nges are present with ventricles in proportion. Dense arterial tree calcifications are present. Mastoid air cells and visualized portions of the paranasal sinuses are clear. No acute bony findings. IMPRESSION: No intracranial hemorrhage, mass or edema. Approximately 3 centimeter area of diminished attenuation lateral right frontal lobe favored to be ham bacute nonhemorrhagic infarction. Acute components are possible and MR could be used for confirmation or exclusion of acute CVA. 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
--- NOTE | 2018-08-29 13:17 | RAD REPORT ---
EXAM DESCRIPTION: Shira Single View08/29/2018 1:08 pm CLINICAL HISTORY: Seizure COMPARISON: 2017 FINDINGS: The lungs appear clear of acute infiltrate. The heart is normal size IMPRESSION: No acute abnormalities displayed
[2018-08-29 13:58] LABS: Potassium 4.1 mmol/L (3.5-5.1)
[2018-08-29 14:23] LABS: Absolute Lymphocytes (CBC) 1.3 K/uL (0.7-4.9); Absolute Monocytes 0.8 K/uL (0.1-1.3); Absolute Neutrophil 4.7 K/uL (1.8-8.0); Basophils % 1.2 % (0-1.3); Eosinophils % 1.3 % (0-4.4); Hematocrit 47.3 % (39.6-49.0); Lymphocytes % 19.3 % (15.3-44.8); MPV 10.9 fL (7.6-11.3); Monocytes % 11.1 % (3.3-12.3); RBC Red Blood Cell Count 5.04 M/uL (4.33-5.43)
--- NOTE | 2018-08-29 15:48 | RAD REPORT ---
EXAM DESCRIPTION: MRI - Brain Wo Cont - 08/29/2018 3:24 pm CLINICAL HISTORY: Seizure, stroke-like symptoms, abnormal CT study COMPARISON: CT scan August 29, MR brain December 2016 TECHNIQUE: Sagittal T1-weighted images were obtained along with axial PD, heavily T2-weighted and T2 -FLAIR images. Axial DWI and ADC mapping sequences were also obtained along with coronal heavily T2-w eighted images. FINDINGS: The 3 centimeter area of abnormal attenuation in the lateral right frontal lobe on the CT study is seen has predominantly hyperintense on diffusion-weighted imaging as well as hyperintense on ADC mapping sequence. Proton density, T2 and T2 FLAIR signal is hyperintense in this region. T1 sign al is hypointense. Old left parietal and temporal CVA changes are present as detailed on prior imaging. Atrophy and quality control analyst radha ischemic changes are noted as a baseline. There is no edema or shift of midline structures. Signa l voids are seen as a normal finding in the major intracranial vessels. No globe or orbital content acute abnormality. Mastoid air cells and paranasal sinuses are clear. IMPRESSION: Approximately 3 centimeter area of subacute nonhemorrhagic infarction lateral right fron rafael lobe, superior margin of the sylvian fissure. No intracranial hemorrhage. No acute CVA changes.
--- NOTE | 2018-08-29 16:11 | ER ---
Nurse's Notes [facility] Name: Francheska Bolaños Jr Age: 62 yrs Sex: Male : 1955 Arrival Date: 08/29/2018 Time: 12:06 Bed 19 Private MD: Diagnosis: Epilepsy and recurrent seizures Presentation: 08/29 12:06 Presenting complaint: EMS states: Sister on scene reports generalized seizure lasting hb approx 2 minutes. Hx seizures, CVA w/left sided weakness. Last seizure was 06/1018. Upon arrival pt was post ictal, BGL 114, BP 136/86, HR 92, SPO2 100% on RA. Transition of care: patient was not received from another setting of care. Onset of symptoms was August 29, 2018. Risk Assessment: Do you want to hurt yourself or someone else? Patient reports no desire to harm self or others. Care prior to arrival: None. 12:06 Method Of Arrival: EMS: [facility] hb 12:06 Acuity: MAGI 3 hb 12:18 Initial Sepsis Screen: Does the patient meet any 2 criteria? No. Patient's initial em sepsis screen is negative. Does the patient have a suspected source of infection? No. Patient's initial sepsis screen is negative. Historical: - Allergies: 12:12 No Known Drug Allergies; hb - Home Meds: 12:12 amlodipine 10 mg tab 1 tab once daily [Active]; aspirin 81 mg Oral TbEC 1 tab once hb daily [Active]; atorvastatin 20 mg Oral tab 1 tab once daily [Active]; carvedilol 3.125 mg Oral tab 1 tab 2 times per day [Active]; cephalexin 800mg Oral cap 1 tab [Active]; citalopram 20 mg tab 1 tab once daily [Active]; clonidine HCl 0.1 mg Oral tab 1 tab 2 times per day [Active]; clopidogrel 75 mg Oral tab 1 tab once daily [Active]; hydralazine 100 mg Oral tab 1 tab 2 times per day [Active]; hydrochlorothiazide 25 mg Oral tab [Active]; Keppra 1,000 mg Oral tab 1 tab every 12 hours [Active]; levetiracetam 1,000 mg Oral tab 1 tab every 12 hours [Active]; losartan 100 mg Oral tab 1 tab once daily [Active]; losartan potassium 100 mg daily [Active]; memantine 10 mg Oral tab 1 tab 2 times per day [Active]; oxycarbazepine 300 mg BID [Active]; ranitidine HCl 150 mg Oral tab 1 tab 2 times per day [Active]; quietap fum 25 mg bedtime [Active]; tamsulosin 0.4 mg Oral cp24 1 cap once daily [Active]; vit B-1 100 mg daily [Active]; - PMHx: 12:12 CVA; High Cholesterol; GERD; Hypertension; Seizures; hb - PSHx: 12:12 RICARDA hip replacement; Leg stents; Loop recorder; hb - Immunization history:: Adult Immunizations up to date. - Social history:: Smoking status: Patient/guardian denies using tobacco. - Ebola Screening: : No symptoms or risks identified at this time. Screenin:12 Abuse screen: Denies threats or abuse. Denies injuries from another. Nutritional hb screening: No deficits noted. Tuberculosis screening: No symptoms or risk factors identified. Fall Risk None identified. Assessment: 12:18 General: Appears comfortable, Behavior is calm, flat. Pain: Denies pain. Neuro: Level em of Consciousness is awake, alert, obeys commands, Oriented to person, place, Roustabout Supervisor are weak on left Weakness hand(s) Speech is slurred, Facial symmetry appears normal, Pupils are PERRLA, Denies headache. Cardiovascular: Patient's skin is warm and dry. Respiratory: Airway is patent Respiratory effort is even, unlabored, Respiratory pattern is regular, symmetrical. GI: PEG tube in place, clamped. Site clean. Derm: Skin is intact, Skin is pink, warm \T\ dry. Musculoskeletal: Range of motion: intact in all extremities. 12:18 Reassessment: I agree with assessment completed by Arias Vick LVN. aa5 13:30 Reassessment: Patient appears in no apparent distress at this time. Patient and/or em family updated on plan of care and expected duration. Pain level reassessed. Patient is alert, oriented x 3, equal unlabored respirations, skin warm/dry/pink. 14:21 Reassessment: Patient and/or family updated on plan of care and expected duration. Pain em level reassessed. pt wheeled to MRI via stretcher, sister reports pt symptoms are from previous stroke, reports she thinks he sounds better, provider notified. 15:45 Reassessment: Patient appears in no apparent distress at this time. returned from MRI. em 16:12 Reassessment: Patient appears in no apparent distress at this time. Patient and/or em family updated on plan of care and expected duration. Pain level reassessed. Patient is alert, oriented x 3, equal unlabored respirations, skin warm/dry/pink. Vital Signs: 12:21 BP 140 / 98; Pulse 81; Resp 18; Temp 97.8(O); Pulse Ox 100% on R/A; Pain 0/10; em 13:30 BP 124 / 82; Pulse 78; Resp 16; Pulse Ox 99% on R/A; Pain 0/10; em 15:45 BP 129 / 94; Pulse 78; Resp 18; Pulse Ox 99% on R/A; em 16:30 BP 134 / 95; Pulse 74; Resp 18; Pulse Ox 99% on R/A; Pain 0/10; em ED Course: 12:06 Patient arrived in ED. hb 12:09 Scott Kellogg MD is Attending Physician. kdr 12:09 Triage completed. hb 12:09 Arm band placed on. hb 12:19 Arias Vick LVN is Primary Nurse. em 12:22 Patient has correct armband on for positive identification. Placed in gown. Bed in low em position. Call light in reach. security monitor on. Pulse ox on. NIBP on. 12:22 Seizure precautions initiated. em 12:[address] via stretcher. em2 12:52 CT completed. Patient tolerated procedure well. Patient moved to radiology. em2 12:52 CT Head Brain wo Cont In Process Unspecified. EDMS 13:08 CXR XRAY In Process Unspecified. EDMS 13:30 Missed attempt(s): 24 gauge in left hand. Bleeding controlled, band aid applied, em catheter tip intact. 14:17 Patient moved to MRI via stretcher. em2 15:08 Brain Wo Cont In Process Unspecified. EDMS 15:40 MRI completed. Patient tolerated well. Patient moved back from MRI. em2 17:12 No provider procedures requiring assistance completed. Patient did not have IV access em during this emergency room visit. Administered Medications: No medications were administered Point of Care Testing: Blood Glucose: 12:21 Blood Glucose: 92 mg/dL; em Ranges: Outcome: 16:10 Discharge ordered by . kdr 17:14 Discharged to home via wheelchair. em 17:14 Condition: good 17:14 Discharge instructions given to patient, family, Instructed on discharge instructions, follow up and referral plans. Demonstrated understanding of instructions, follow-up care. 17:16 Patient left the ED. em Signatures: Dispatcher [employer] Scott Cosby MD MD kdr Arias Vick, EDUCATIONAL PSYCHOLOGY TEACHER EDUCATIONAL PSYCHOLOGY TEACHER em Verito Stock RN RN aa5 Artur Townsend em2 Kelly Gonzales RN RN Corrections: (The following items were deleted from the chart) 12:52 12:51 Patient moved to [place] via stretcher. em2 em2
--- NOTE | 2018-08-29 16:11 | EDPHYS ---
Physician Documentation [facility] Name: Francheska Bolaños Jr Age: 62 yrs Sex: Male : 1955 Arrival Date: 08/29/2018 Time: 12:06 Bed 19 Private MD: ED Physician Scott Kellogg HPI: 08/29 15:55 This 62 yrs old Black Male presents to ER via EMS with complaints of Seizure. kdr 15:55 The patient presents after having a single isolated seizure, that lasted an unknown kdr period of time, the episode(s) was witnessed, by a bystander. Character of seizure(s): Motor activity: generalized. Seizure onset: just prior to arrival. Context: the seizure(s) was witnessed, by a bystander, occurred at home, occurred while the patient was. Seizure Hx: Cause: previous CVA. Associated injury: The patient did not suffer any apparent associated injury. EMS care: none. The patient has experienced similar episodes in the past, multiple times. It is unknown whether or not the patient has recently seen a physician. Historical: - Allergies: 12:12 No Known Drug Allergies; hb - Home Meds: 12:12 amlodipine 10 mg tab 1 tab once daily [Active]; aspirin 81 mg Oral TbEC 1 tab once hb daily [Active]; atorvastatin 20 mg Oral tab 1 tab once daily [Active]; carvedilol 3.125 mg Oral tab 1 tab 2 times per day [Active]; cephalexin 800mg Oral cap 1 tab [Active]; citalopram 20 mg tab 1 tab once daily [Active]; clonidine HCl 0.1 mg Oral tab 1 tab 2 times per day [Active]; clopidogrel 75 mg Oral tab 1 tab once daily [Active]; hydralazine 100 mg Oral tab 1 tab 2 times per day [Active]; hydrochlorothiazide 25 mg Oral tab [Active]; Keppra 1,000 mg Oral tab 1 tab every 12 hours [Active]; levetiracetam 1,000 mg Oral tab 1 tab every 12 hours [Active]; losartan 100 mg Oral tab 1 tab once daily [Active]; losartan potassium 100 mg daily [Active]; memantine 10 mg Oral tab 1 tab 2 times per day [Active]; oxycarbazepine 300 mg BID [Active]; ranitidine HCl 150 mg Oral tab 1 tab 2 times per day [Active]; quietap fum 25 mg bedtime [Active]; tamsulosin 0.4 mg Oral cp24 1 cap once daily [Active]; vit B-1 100 mg daily [Active]; - PMHx: 12:12 CVA; High Cholesterol; GERD; Hypertension; Seizures; hb - PSHx: 12:12 RICARDA hip replacement; Leg stents; Loop recorder; hb - Immunization history:: Adult Immunizations up to date. - Social history:: Smoking status: Patient/guardian denies using tobacco. - Ebola Screening: : No symptoms or risks identified at this time. ROS: 15:55 Constitutional: Negative for fever, chills, and weight loss, Eyes: Negative for injury, kdr pain, redness, and discharge, Neck: Negative for injury, pain, and swelling, Cardiovascular: Negative for chest pain, palpitations, and edema, Respiratory: Negative for shortness of breath, cough, wheezing, and pleuritic chest pain, Abdomen/GI: Negative for abdominal pain, nausea, vomiting, diarrhea, and constipation, Back: Negative for injury and pain, : Negative for injury, bleeding, discharge, and swelling, MS/Extremity: Negative for injury and deformity, Skin: Negative for injury, rash, and discoloration, Allergy/Immunology: Negative for hives, rash, and allergies, Endocrine: Negative for neck swelling, polydipsia, polyuria, polyphagia, and marked weight changes, Hematologic/Lymphatic: Negative for swollen nodes, abnormal bleeding, and unusual bruising. 15:55 Neuro: Positive for No changes from baseline per family. Exam: 15:55 Constitutional: This is a well developed, well nourished patient who is awake, alert, kdr and in no acute distress. Head/Face: Normocephalic, atraumatic. Eyes: Pupils equal round and reactive to light, extra-ocular motions intact. Lids and lashes normal. Conjunctiva and sclera are non-icteric and not injected. Cornea within normal limits. Periorbital areas with no swelling, redness, or edema. Neck: Trachea midline, no thyromegaly or masses palpated, and no cervical lymphadenopathy. Supple, full range of motion without nuchal rigidity, or vertebral point tenderness. No Meningismus. Chest/axilla: Normal chest wall appearance and motion. Nontender with no deformity. No lesions are appreciated. Cardiovascular: Regular rate and rhythm with a normal S1 and S2. No gallops, murmurs, or rubs. Normal PMI, no JVD. No pulse deficits. Respiratory: Lungs have equal breath sounds bilaterally, clear to auscultation and percussion. No rales, rhonchi or wheezes noted. No increased work of breathing, no retractions or nasal flaring. Back: No spinal tenderness. No costovertebral tenderness. Full range of motion. Skin: Warm, dry with normal turgor. Normal color with no rashes, no lesions, and no evidence of cellulitis. 15:55 Neuro: At base line per family - follows commands and moves everything. Vital Signs: 12:21 BP 140 / 98; Pulse 81; Resp 18; Temp 97.8(O); Pulse Ox 100% on R/A; Pain 0/10; em 13:30 BP 124 / 82; Pulse 78; Resp 16; Pulse Ox 99% on R/A; Pain 0/10; em 15:45 BP 129 / 94; Pulse 78; Resp 18; Pulse Ox 99% on R/A; em 16:30 BP 134 / 95; Pulse 74; Resp 18; Pulse Ox 99% on R/A; Pain 0/10; em MDM: 15:55 Data reviewed: vital signs, nurses notes, lab test result(s), radiologic studies. kdr Counseling: I had a detailed discussion with the patient and/or guardian regarding: the historical points, exam findings, and any diagnostic results supporting the discharge/admit diagnosis, lab results, radiology results, the need for outpatient follow up. 16:10 Patient medically screened. [facility] 08/29 12:30 Order name: CBC with Diff; Complete Time: 15:33 kdr 08/29 12:30 Order name: Chem 7; Complete Time: 15:33 kdr 08/29 12:30 Order name: CT Head Brain wo Cont; Complete Time: 13:23 kdr 08/29 12:30 Order name: CXR XRAY; Complete Time: 13:23 kdr 08/29 13:54 Order name: Brain Wo Cont; Complete Time: 15:55 EDMS 08/29 12:30 Order name: EKG - Nurse/Tech; Complete Time: 16:00 kdr 08/29 13:33 Order name: Labs - recollect needed; Complete Time: 16:00 eb Administered Medications: No medications were administered Point of Care Testing: Blood Glucose: 12:21 Blood Glucose: 92 mg/dL; em Ranges: Critical Glucose Levels:Adult <50 mg/dl or >400 mg/dl <40 mg/dl or >180 mg/dl Disposition: 08/29/18 16:10 Discharged to Home. Impression: Epilepsy and recurrent seizures. - Condition is Stable. - Discharge Instructions: Seizure, Adult, [id number]. - Medication Reconciliation Form, Thank You Letter form. - Follow up: Private Physician; When: 2 - 3 days; Reason: If symptoms return, Further diagnostic work-up, Recheck today's complaints, Continuance of care, Re-evaluation by your physician. - Problem is an acute exacerbation. - Symptoms have improved. Signatures: Dispatcher [employer] [facility] Scott Kellogg MD MD kdr Arias Vick, PLUMBING AND HEATING MECHANIC PLUMBING AND HEATING MECHANIC em Kelly Gonzales, RN RN Nancy Red Corrections: (The following items were deleted from the chart) 13:53 13:28 MR STROKE PROTOCOL+MRI.RAD.BRZ ordered. [facility] 17:16 16:10 08/29/2018 16:10 Discharged to Home. Impression: Epilepsy and recurrent seizures. em Condition is Stable. Forms are Medication Reconciliation Form, Thank You Letter, Antibiotic Education, Prescription Opioid Use. Follow up: Private Physician; When: 2 - 3 days; Reason: If symptoms return, Further diagnostic work-up, Recheck today's complaints, Continuance of care, Re-evaluation by your physician. Problem is an acute exacerbation. Symptoms have improved. kdr
[2018-08-29 17:36] VITALS: TEMP 97.8
[2018-08-29 17:40] VITALS: O2SAT 99
[2018-08-29 17:43] VITALS: BP 134/95
--- NOTE | 2018-08-30 06:34 | EKG ---
Test Date: 2018-08-29 Test Time: 15:41:28 [employer]: BABAR MEASUREMENT RESULTS: Intervals: Rate: 73 [place]: 130 QRSD: 96 QT: 418 QTc: 460 [place]: P: 62 [place]: 130 QRS: -24 T: -60 INTERPRETIVE STATEMENTS: Normal sinus rhythm Minimal voltage criteria for LVH, may be normal variant Inferior infarct, age undetermined T wave abnormality, consider lateral ischemia Abnormal ECG Compared to ECG 04/06/2017 06:40:28 T-wave abnormality now present Sinus tachycardia no longer present Atrial premature complex(es) no longer present Ventricular premature complex(es) no longer present Short [place] interval no longer present Myocardial infarct finding still present Electronically Signed On 08-30-18 06:29:08 [employer] by You Corrales
== END 2018-08-29 17:16 | disposition home or self-care (01) ==
LOC: ER 12:03
DX: G40.802 Other epilepsy, not intractable, without status epilepticus (principal); I10 Essential (primary) hypertension; K21.9 Gastro-esophageal reflux disease without esophagitis; E78.00 Pure hypercholesterolemia, unspecified; Z79.82 Long term (current) use of aspirin; Z86.73 Personal history of transient ischemic attack (TIA), and cerebral infarction without residual deficits
CPT/HCPCS: 36415; 70450; 70551; 71045; 80048; 82962; 85025; 93005; 99285

== ENCOUNTER 2019-01-03 15:28 | Inpatient (IN) | payer OTHER ==
--- OUTSIDE RECORDS SUMMARY | 2019-01-03 15:36 | XMS REPORT | Continuity of Care Document ---
:1955 Author Organization Interface Problems Problem Status Onset Classification Date Comments Source Date Reported STROKE Active 016 [facility] CVA Active 016 [facility] ISCHEMIC CVA Active [address] SUSPECTED CVA (R Active SIDED WEAKNESS), 016 [facility] NEW ON ISCHEMIC Active [facility] STROKE/SUBACUTE 015 [facility] Anemia<sup>1</sup> Resolved Problem 11/21/2015 [facility]ER [facility] [place] Cerebrovascular Resolved Problem 11/21/2015 D/C 12/06 [facility] accident (<span 015 Medical ID="[id number]">C [facility] onfirmed</span>)<s [facility] up>2</sup> Dyslipidemia Active Problem 11/21/2015 [facility] Hypertension Resolved Problem 11/21/2015 [facility] Loss of vision of Resolved Problem 11/21/2015 [facility] right eye [facility] [place] (<span Resolved Problem 11/21/2015 [facility] ID="[id number]"> Medical onfirmed</span>) [facility] ISCHEMIC OPTIC Active [facility] NEUROPTHY [facility] CEREBRAL Active INFARCTION, [facility] UNSPECIFIED OTHER Active CEREBROVASCULAR [facility] DISEASE Medications Medication Details Route Status Patient Ordering Order Source Instructions Provider Date Lovenox 40 mg, 0.4 mL, No Longer Route: SUB-Q, Active 2015 [facility] Drug form: INJ, [id number], Dosing Weight 80.5, kg, Start date: 11/19/15 9:00:00 CDT, Duration: 30 day, Stop date: 12/18/15 9:00:00 CDTNotes: (Same as: Lovenox) Ritalin 5 mg, 1 tab, No Longer Route: PO, Active 2015 [facility] Drug form: TAB, BID, Dosing Weight 87.443, kg, Start date: 11/18/15 7:00:00 CDT, Duration: 30 day, Stop date: 12/17/15 12:00:00 CDTNotes: (Same as:Ritalin) gabapentin 100 mg, 1 cap, No Longer Route: PO, Active 2015 [facility] Drug form: CAP, Q8H, Dosing Weight 87.443, kg, Start date: 11/18/15 0:00:00 CDT, Duration: 30 day, Stop date: 12/17/15 16:00:00 CDTNotes: (Same as: Neurontin) gabapentin 100 MG 100 mg=1 cap, Active Oral Capsule PO, Q8H-06, # 2015 [facility] 90 cap, 0 Refill(s) docusate sodium 100 mg=1 cap, Active 100 mg oral PO, BID, # 60 2015 [facility] capsule cap, 0 Refill(s) Phenytoin sodium 300 mg=3 cap, Active 100 MG Extended PO, QPM, # 90 2015 [facility] Release Capsule cap, 0 [Dilantin] Refill(s) lisinopril 20 mg 20 mg=1 tab, Active oral tablet PO, Daily, # 2015 [facility] 30 tab, 0 Refill(s) amLODIPine 5 mg 5 mg=1 tab, Active oral tablet PO, Daily, # 2015 [facility] 30 tab, 0 Refill(s) Famotidine 20 MG 20 mg=1 tab, Active Oral Tablet PO, Q12H, # 60 2015 [facility] [Pepcid] tab, 0 Refill(s) clopidogrel 75 mg 75 mg=1 tab, Active oral tablet PO, Daily, # 2015 [facility] 30 tab, 0 Refill(s) atorvastatin 40 40 mg=1 tab, Active mg oral tablet PO, Bedtime, # 2015 [facility] 30 tab, 0 Refill(s) Aspirin 81 MG 81 mg=1 tab, Active Enteric Coated PO, Daily, # 2015 [facility] Tablet 30 tab, 0 Refill(s) carvedilol 25 mg 25 mg=1 tab, Active oral tablet PO, Q12H, # 60 2015 tab, 0 Refill(s) Amlodipine 5 mg, 1 tab, No Longer Route: PO, Active 2015 [facility] Drug form: TAB, Daily, Dosing Weight 87.443, kg, Priority: NOW, Start date: 11/17/15 9:20:00 CDT, Duration: 30 day, Stop date: 12/17/15 9:00:00 CDTNotes: (Same as: Norvasc) NS 0.45% IV 1,000 1,000 mL, No Longer mL Rate: 75 2015 [facility] ml/hr, Infuse over: 13.3 hr, Route: IV, Dosing Weight 87.443 kg, Total Volume: 1,000, Start date: 11/16/15 14:08:00 CDT, Duration: 30 day, Stop date: 12/16/15 14:07:00 CDT Ritalin 2.5 mg, 0.5 No Longer tab, Route: Active 2015 [facility] PO, Drug form: TAB, BID, Dosing Weight 87.443, kg, Start date: 11/16/15 7:00:00 CDT, Duration: 30 day, Stop date: 12/15/15 12:00:00 CDTNotes: (Same as:Ritalin) gabapentin 100 mg, Route: No Longer PO, Drug form: Active 2015 [facility] CAP, Q8H, Dosing Weight 87.443, kg, Start date: 11/16/15 0:00:00 CDT, Stop date: 11/18/15 16:00:00 CDT gabapentin 100 mg, 1 cap, No Longer Route: PO, Active 2015 [facility] Drug form: CAP, Q8H-06, Dosing Weight 87.443, kg, Start date: 11/15/15 22:00:00 CDT, Duration: 30 day, Stop date: 12/15/15 14:00:00 CDTNotes: (Same as: Neurontin) Hydralazine 10 mg, 1 tab, No Longer Route: PO, Active 2015 [facility] Drug form: TAB, Q6H, Dosing Weight 87.443, kg, PRN Hypertension, Start date: 11/15/15 17:01:00 CDT, Duration: 30 day, Stop date: 12/15/15 17:00:00 CDTNotes: (Same as: Apresoline) May interfere w/enteral feedings. Take With Food Sodium Chloride 1,000 mL, No Longer 0.154 MEQ/ML Rate: 100 Active 2015 [facility] Injectable ml/hr, Infuse Solution over: 10 hr, Route: IV, Dosing Weight 87.443 kg, Total Volume: 1,000, Start date: 11/14/15 9:42:00 CDT, Duration: 30 day, Stop date: 12/14/15 9:41:00 CDT Coreg 25 mg, 1 tab, No Longer Route: PO, Active 2015 [facility] Drug form: TAB, Q12H, Dosing Weight 92.813, kg, Start date: 11/13/15 21:00:00 CDT, Duration: 30 day, Stop date: 12/13/15 9:00:00 CDTNotes: Give with food. (Same As: Coreg) Coreg 12.5 mg, 1 No Longer tab, Route: Active 2015 [facility] PO, Drug form: TAB, Q12H, Dosing Weight 92.813, kg, Start date: 11/12/15 21:00:00 CDT, Duration: 30 day, Stop date: 12/12/15 9:00:00 CDTNotes: Give with food. (Same As: Coreg) Dilantin 300 mg, 3 cap, No Longer Route: PO, Active 2015 [facility] Drug form: ERCAP, QPM, Dosing Weight 92.813, kg, Start date: 11/12/15 17:00:00 CDT, Duration: 30 day, Stop date: 12/11/15 17:00:00 CDTNotes: (Same as: Dilantin) Do not open, crush, or chew. cloNIDine 0.1 mg 0.1 mg, 1 tab, Inactive oral tablet Route: PO, 2015 [facility] Drug form: TAB, ONCE, Start date: 11/12/15 15:00:00 CDT, Stop date: 11/12/15 15:00:00 CDTNotes: (Same As: Catapres) Clonidine 0.1 mg, 1 tab, No Longer Hydrochloride 0.1 Route: PO, Active 2015 [facility] MG Oral Tablet Drug form: TAB, TID, Dosing Weight 87.443, kg, PRN Elevated BP, SBP > 180 or DBP > 100, Start date: 11/12/15 14:46:00 CDT, Duration: 30 day, Stop date: 12/12/15 14:45:00 CDTNotes: (Same As: Catapres) Lovenox 40 mg, 0.4 mL, No Longer Route: SUB-Q, 2015 [facility] Drug form: INJ, [id number], Dosing Weight 80.5, kg, Start date: 11/12/15 9:00:00 CDT, Duration: 30 day, Stop date: 12/11/15 9:00:00 CDTNotes: (Same as: Lovenox) Docusate 100 mg, 1 cap, No Longer Route: PO, 2015 [facility] Drug form: CAP, BID, Dosing Weight 88.182, kg, Start date: 11/12/15 9:00:00 CDT, Duration: 30 day, Stop date: 12/11/15 17:00:00 CDTNotes: (Same as: Colace) (Do Not Crush) Plavix 75 mg, 1 tab, No Longer Route: PO, 2015 [facility] Drug form: TAB, Daily, Dosing Weight 92.813, kg, Start date: 11/12/15 9:00:00 CDT, Duration: 30 day, Stop date: 12/11/15 9:00:00 CDTNotes: (Same As: Plavix) aspirin 81 mg 81 mg, 1 tab, No Longer tablet, enteric Route: PO, 2015 [facility] coated Drug form: ECTAB, Daily, Dosing Weight 80.5, kg, Start date: 11/12/15 9:00:00 CDT, Duration: 30 day, Stop date: 12/11/15 9:00:00 CDTNotes: Do not crush or chew. (Same As: Ecotrin) Prinivil 20 mg, 1 tab, No Longer Route: PO, 2015 [facility] Drug form: TAB, Daily, Dosing Weight 92.813, kg, Start date: 11/12/15 9:00:00 CDT, Duration: 30 day, Stop date: 12/11/15 9:00:00 CDTNotes: (Same as: Prinivil, Zestril) Saline Flush 0.9% 10 ml, Route: No Longer IVP, Drug Active 2015 [facility] Form: INJ, Dosing Weight 88.182, kg, Q12H, Start date: 11/11/15 21:00:00 CDT, Duration: 30 day, Stop date: 12/11/15 9:00:00 CDTNotes: (Same as: BD Posiflush) Cipro 500 mg, 1 tab, No Longer Route: PO, Active 2015 [facility] Drug form: TAB, [id number], Dosing Weight 92.813, kg, Start date: 11/11/15 21:00:00 CDT, Duration: 7 day, Stop date: 11/18/15 9:00:00 CDTNotes: May interfere w/enteral feedings - Take 1 hr before or 2 hrs after antacids, dairy pdt & minerals. On empty stomach. Pepcid 20 mg, 1 tab, No Longer Route: PO, Active 2015 [facility] Drug form: TAB, Q12H, Dosing Weight 92.813, kg, Start date: 11/11/15 21:00:00 CDT, Duration: 30 day, Stop date: 12/11/15 9:00:00 CDTNotes: (Same as: Pepcid) Coreg 6.25 mg, 1 No Longer tab, Route: 2015 [facility] PO, Drug form: TAB, Q12H, Dosing Weight 92.813, kg, Start date: 11/11/15 21:00:00 CDT, Duration: 30 day, Stop date: 12/11/15 9:00:00 CDTNotes: Give with food. (Same As: Coreg) Lipitor 40 mg, 1 tab, No Longer Route: PO, Active 2015 [facility] Drug form: TAB, Bedtime, Dosing Weight 92.813, kg, Start date: 11/11/15 21:00:00 CDT, Duration: 30 day, Stop date: 12/10/15 21:00:00 CDTNotes: (Same as: Lipitor) Saline Flush 0.9% 10 ml, Route: No Longer IVP, Drug Active 2015 [facility] Form: INJ, Dosing Weight 88.182, kg, PRN, PRN Line Flush, Start date: 11/11/15 20:47:00 CDT, Duration: 30 day, Stop date: 12/11/15 20:46:00 CDTNotes: (Same as: BD Posiflush) Dulcolax Laxative 10 mg, 1 supp, No Longer Route: AR, Active 2015 [facility] Drug form: SUPP, Daily, Dosing Weight 80.5, kg, PRN Constipation, Start date: 11/11/15 19:59:00 CDT, Duration: 30 day, Stop date: 12/11/15 19:58:00 CDTNotes: (Same As: Dulcolax, Bisco-Lax) Tylenol 650 mg, 2 tab, No Longer Route: PO, Active 2015 [facility] Drug form: TAB, Q4H, Dosing Weight 80.5, kg, PRN For Temp > 100.4 F, Start date: 11/11/15 19:58:00 CDT, Duration: 30 day, Stop date: 12/11/15 19:57:00 CDTNotes: Do not exceed 4 gm/day. (Same as: Tylenol) Robitussin-DM 10 mL, Route: No Longer PO, Drug Form: Active 2015 [facility] SYRP, Dosing Weight 80.5, kg, Q4H, PRN Cough, Start date: 11/11/15 19:54:00 CDT, Duration: 30 day, Stop date: 12/11/15 19:53:00 CDTNotes: (dextromethorp krause-guaifenesi n 10-100mg/5ml 10 ml oral SOLN ud) (Same as: Robitussin DM) Phenytoin sodium 300 mg, 3 cap, Inactive 100 MG Extended Route: PO, 2015 [facility] Release Capsule Drug form: [Dilantin] ERCAP, QPM, Dosing Weight 92.813, kg, Start date: 11/11/15 17:00:00 CDT, Duration: 30 day, Stop date: 12/10/15 17:00:00 CDTNotes: (Same as: Dilantin) Do not open, crush, or chew. Aspirin 81 MG 81 mg=1 tab, Active Enteric Coated PO, Daily, 0 2015 [facility] Tablet Refill(s) simethicone 80 mg 80 mg=1 tab, Active oral tablet, PO, Q6H, PRN 2015 [facility] chewable Gas, 0 Refill(s) Phenytoin sodium 300 mg=3 cap, Active 100 MG Extended PO, QPM, 0 2015 [facility] Release Capsule Refill(s) [Dilantin] Famotidine 20 MG 20 mg=1 tab, Active Oral Tablet PO, Q12H, 0 2015 [facility] [Pepcid] Refill(s) Enoxaparin 40 mg=0.4 mL, Active SUB-Q, 2015 [facility] [id number], 0 Refill(s) bisacodyl 10 mg 10 mg=1 supp, Active rectal AR, Daily, PRN 2015 [facility] suppository Constipation, 0 Refill(s) benzonatate 100 100 mg=1 cap, Active mg oral capsule PO, Q8H, PRN 2015 [facility] Cough, 0 Refill(s) acetaminophen 325 650 mg=2 tab, Active mg oral tablet PO, Q4H, PRN 2015 [facility] For Temp > 100.4 F, 0 Refill(s) lisinopril 20 mg 20 mg=1 tab, Active oral tablet PO, Daily, 0 2015 [facility] Refill(s) clopidogrel 75 mg 75 mg=1 tab, Active oral tablet PO, Daily, 0 2015 [facility] Refill(s) carvedilol 6.25 6.25 mg=1 tab, Active mg oral tablet PO, Q12H, 0 2015 [facility] Refill(s) atorvastatin 40 40 mg=1 tab, Active mg oral tablet PO, Bedtime, 0 2015 [facility] Refill(s) Ciprofloxacin 500 mg, 1 tab, Inactive Route: PO, 2015 [facility] Drug form: TAB, [id number], Dosing Weight 92.813, kg, Start date: 11/11/15 12:00:00 CDT, Duration: 30 day, Stop date: 12/11/15 0:00:00 CDTNotes: May interfere w/enteral feedings - Take 1 hr before or 2 hrs after antacids, dairy pdt & minerals. On empty stomach. Lisinopril 20 mg, 1 tab, No Longer Route: PO, Active 2015 [facility] Drug form: TAB, Daily, Dosing Weight 92.813, kg, Start date: 11/10/15 9:30:00 CDT, Duration: 30 day, Stop date: 12/10/15 9:00:00 CDTNotes: (Same as: Prinivil, Zestril) Lipitor 40 mg, 1 tab, No Longer Route: PO, Active 2015 [facility] Drug form: TAB, Bedtime, Dosing Weight 92.813, kg, Start date: 11/09/15 21:00:00 CDT, Duration: 30 day, Stop date: 12/08/15 21:00:00 CDTNotes: (Same as: Lipitor) Zyprexa 5 mg, Route: Inactive IM, Drug form: 2015 [facility] INJ, ONCALL, Dosing Weight 92.813, kg, FOR MRI, Priority: NOW, Start date: 11/09/15 13:58:00 CDTNotes: (Same As: ZyPREXA IM). Reconstitute with 2.1 ml sterile water for injection; use within 1 hour after reconstitution . For IM use only; do not administer IV or SUB-Q. Famotidine 20 MG 20 mg, 1 tab, No Longer Oral Tablet Route: PO, Active 2015 [facility] [Pepcid] Drug form: TAB, Q12H, Dosing Weight 92.813, kg, Start date: 11/09/15 9:00:00 CDT, Duration: 30 day, Stop date: 12/08/15 21:00:00 CDTNotes: (Same as: Pepcid) Plavix 75 mg, 1 tab, No Longer Route: PO, Active 2015 [facility] Drug form: TAB, Daily, Dosing Weight 92.813, kg, Start date: 11/09/15 9:00:00 CDT, Duration: 30 day, Stop date: 12/08/15 9:00:00 CDTNotes: (Same As: Plavix) Coreg 6.25 mg, 1 No Longer tab, Route: Active 2015 [facility] PO, Drug form: TAB, Q12H, Dosing Weight 92.813, kg, Start date: 11/09/15 9:00:00 CDT, Duration: 30 day, Stop date: 12/08/15 21:00:00 CDTNotes: Give with food. (Same As: Coreg) Ativan 1 mg, 0.5 mL, Inactive Route: IVP, 2015 [facility] Drug form: INJ, ONCE, Dosing Weight 92.813, kg, PRN Agitation, Start date: 11/09/15 2:26:00 CDTNotes: (Same as: Ativan) Ciprofloxacin 400 mg, 200 No Longer mL, Route: Active 2015 [facility] IVPB, Drug form: INJ, [id number], Dosing Weight 92.813, kg, Start date: 11/08/15 13:00:00 CDT, Duration: 30 day, Stop date: 12/08/15 1:00:00 CDTNotes: Do not refrigerate Morphine 2 mg, 1 mL, Inactive Route: IVP2015 [facility] Drug form: INJ, ONCE, Dosing Weight 92.813, kg, Start date: 11/08/15 11:22:00 CDT, Stop date: 11/08/15 11:22:00 CDTNotes: (Same as:MORPhine Sulfate) Lorazepam 1 mg, 0.5 mL, Inactive Route: IV, 2015 [facility] Drug form: INJ, ONCE, Dosing Weight 92.813, kg, Priority: NOW, Start date: 11/08/15 10:29:00 CDT, Stop date: 11/08/15 10:29:00 CDTNotes: (Same as: Ativan) Saline Flush 0.9% 10 ml, Route: No Longer IVP, Drug Active 2015 [facility] Form: INJ, Dosing Weight 80.5, kg, Q12H, Start date: 11/08/15 9:00:00 CDT, Duration: 30 day, Stop date: 12/07/15 21:00:00 CDTNotes: (Same as: BD Posiflush) Aspirin 81 MG 81 mg, 1 tab, No Longer Enteric Coated Route: PO, Active 2015 [facility] Tablet Drug form: ECTAB, Daily, Dosing Weight 80.5, kg, Start date: 11/08/15 9:00:00 CDT, Duration: 30 day, Stop date: 12/07/15 9:00:00 CDTNotes: Do not crush or chew. (Same As: Ecotrin) Ativan 1 mg, 0.5 mL, Inactive Route: IV, 2015 [facility] Drug form: INJ, ONCE, Start date: 11/08/15 8:30:00 CDT, Stop date: 11/08/15 8:30:00 CDTNotes: (Same as: Ativan) Dilantin 100 mg, 2 mL, No Longer Route: IVP, Active 2015 [facility] Drug form: INJ, Q8H, Dosing Weight 80.5, kg, Start date: 11/08/15 8:00:00 CDT, Duration: 30 day, Stop date: 12/08/15 0:00:00 CDTNotes: (Same as: Dilantin) Do not infuse greater than 50 mg/min. MEDICATION WASTE Product Size: 100 mg Product Wasted: ___ mg Enoxaparin 40 mg, 0.4 mL, No Longer Route: SUB-Q, Active 2015 [facility] Drug form: INJ, [id number], Dosing Weight 80.5, kg, Start date: 11/08/15 1:00:00 CDT, Stop date: 12/07/15 1:00:00 CDTNotes: (Same as: Lovenox) 1/2 NS 1,000 mL 1,000 mL, No Longer Rate: 100 Active 2015 [facility] ml/hr, Infuse over: 10 hr, Route: IV, Dosing Weight 92.813 kg, Total Volume: 1,000, Start date: 11/08/15 0:55:00 CDT, Duration: 30 day, Stop date: 12/08/15 0:54:00 CDT Sodium Chloride 250 mL, Route: No Longer 0.9% IV IVPB, Start Active 2015 [facility] date: 11/08/15 0:08:00 CDT, Duration: 30 day, Stop date: 12/08/15 0:07:00 CDT, PRN Line Flush BD Normal Saline 10 mL, Route: No Longer Flush IVP, Drug Active 2015 [facility] Form: INJ, PRN, PRN Line Flush, Start date: 11/08/15 0:08:00 CDT, Duration: 30 day, Stop date: 12/08/15 0:07:00 CDTNotes: (Same as: BD Posiflush) Acetaminophen 650 mg, 2 tab, No Longer Route: PO, Active 2015 [facility] Drug form: TAB, Q4H, Dosing Weight 80.5, kg, PRN For Temp > 100.4 F, Start date: 11/08/15 0:04:00 CDT, Duration: 30 day, Stop date: 12/08/15 0:03:00 CDTNotes: Do not exceed 4 gm/day. (Same as: Tylenol) dextromethorphan- 10 mL, Route: No Longer guaiFENesin 10 PO, Drug Form: Active 2015 [facility] mg-100 mg/5 mL SYRP, Dosing oral liquid Weight 80.5, kg, Q4H, PRN Cough, Start date: 11/08/15 0:04:00 CDT, Duration: 30 day, Stop date: 12/08/15 0:03:00 CDTNotes: (dextromethorp krause-guaifenesi n 10-100mg/5ml 10 ml oral SOLN ud) (Same as: Robitussin DM) Diphenhydramine 25 mg, 1 cap, No Longer Route: PO, Active 2015 [facility] Drug form: CAP, Q6H, Dosing Weight 80.5, kg, PRN Itching, Start date: 11/08/15 0:04:00 CDT, Duration: 30 day, Stop date: 12/08/15 0:03:00 CDTNotes: (Same as: Benadryl) Tessalon Perles 100 mg, 1 cap, No Longer Route: PO, Active 2015 [facility] Drug form: CAP, Q8H, Dosing Weight 80.5, kg, PRN Cough, Start date: 11/08/15 0:04:00 CDT, Duration: 30 day, Stop date: 12/08/15 0:03:00 CDTNotes: (Same As: Robinson Colon) "Do Not Crush" Ondansetron 4 mg, 2 mL, No Longer Route: IVP, Active 2015 [facility] Drug form: INJ, Q8H, Dosing Weight 80.5, kg, PRN Nausea & Vomiting, Start date: 11/08/15 0:04:00 CDT, Duration: 30 day, Stop date: 12/08/15 0:03:00 CDTNotes: (Same as: Zofran) MEDICATION WASTE Product Size: 4 mg Product Wasted: ___ mg Simethicone 80 mg, 1 tab, No Longer Route: PO, Active 2015 [facility] Drug form: CHEWTAB, Q6H, Dosing Weight 80.5, kg, PRN Gas, Start date: 11/08/15 0:04:00 CDT, Duration: 2 doses or times, Stop date: Limited # of timesNotes: (Same as: Mylicon) Bisacodyl 10 mg, 1 supp, No Longer Route: AR, 2015 [facility] Drug form: SUPP, Daily, Dosing Weight 80.5, kg, PRN Constipation, Start date: 11/08/15 0:04:00 CDT, Duration: 30 day, Stop date: 12/08/15 0:03:00 CDTNotes: (Same As: Dulcolax, Bisco-Lax) Saline Flush 0.9% 10 ml, Route: No Longer IVP, Drug Active 2015 [facility] Form: INJ, Dosing Weight 80.5, kg, PRN, PRN Line Flush, Start date: 11/08/15 0:02:00 CDT, Duration: 30 day, Stop date: 12/08/15 0:01:00 CDTNotes: (Same as: BD Posiflush) enalapril 0.625 mg, 0.5 No Longer mL, Route: 2015 [facility] IVP, Drug form: INJ, Q6H, Dosing Weight [...] Lipitor 40 mg, 1 tab, No Longer [place] Route: PO, Active 2014 [facility] Drug form: Center TAB, Bedtime, Dosing Weight 80.5, kg, Start date: 01/09/15 21:00:00, Duration: 30 day, Stop date: 02/07/15 21:00:00Notes: (Same as: Lipitor) Carafate 1 gm, 10 mL, No Longer [place] Route: PO, Active 2014 [facility] Drug form: [...] Drug Form: 2014 [facility] polysaccharide INJ, Daily, [place] type 1 vaccine / Start date: pneumococcal 01/09/15 capsular 9:00:00, polysaccharide Duration: 1 type 10A vaccine doses or / pneumococcal times, Stop capsular date: 01/09/15 polysaccharide 9:00:00Notes: type 11A vaccine (Same as: / pneumococcal Pneumovax 23) capsular Refrigerate polysaccharide type 12F vaccine / pneumococcal capsular polysacchar pantoprazole 40 mg, Route: No Longer [place] IVP, Drug Active 2014 [facility] form: INJ, [place] Q12H, Dosing Weight 80.5, kg, Start date: 01/09/15 9:00:00, Duration: 30 day, Stop date: 02/07/15 21:00:00Notes: For IV push reconstitute with 10 ml 0.9% sodium chloride and push over 2 minutes. (Same as: Protonix) Docusate Sodium 100 mg, 1 cap, No Longer [place] 100 MG Oral Route: PO, Active 2014 [facility] Capsule [Colace] Drug form: [place] CAP, BID, Dosing Weight 80.5, kg, Start date: 01/09/15 9:00:00, Duration: 30 day, Stop date: 02/07/15 17:00:00Notes: (Same as: Colace) (Do Not Crush) Folic Acid 1 mg, 1 tab, No Longer [place] Route: PO, Active 2014 [facility] Drug form: [place] TAB, Daily, Dosing Weight 80.5, kg, Start date: 01/09/15 9:00:00, Duration: 30 day, Stop date: 02/07/15 9:00:00Notes: (Same as: Folvite) Lisinopril 20 mg, 1 tab, No Longer [place] Route: PO, Active 2014 [facility] Drug form: [place] TAB, Daily, Dosing Weight 80.5, kg, Start date: 01/09/15 9:00:00, Duration: 30 day, Stop date: 02/07/15 9:00:00Notes: (Same as: Prinivil, Zestril) Plavix 75 mg, 1 tab, No Longer [place] Route: PO, Active 2014 [facility] Drug form: [place] TAB, Daily, Dosing Weight 80.5, kg, Start date: 01/09/15 9:00:00, Duration: 30 day, Stop date: 02/07/15 9:00:00Notes: (Same As: Plavix) Aspirin 81 MG 81 mg, 1 tab, No Longer [place] Enteric Coated Route: PO, Active 2014 [facility] Tablet Drug form: [place] ECTAB, Daily, Dosing Weight 80.5, kg, Start date: 01/09/15 9:00:00, Duration: 30 day, Stop date: 02/07/15 9:00:00Notes: Do not crush or chew. (Same As: Ecotrin) ferrous sulfate 325 mg, 1 tab, No Longer [place] Route: PO, Active 2014 [facility] Drug form: [place] ECTAB, BID-Meals, Dosing Weight 80.5, kg, Start date: 01/09/15 8:00:00, Stop date: 02/07/15 17:00:00Notes: Give with food. "Do Not Crush" Coreg 6.25 mg, 1 No Longer [place] tab, Route: Active 2014 [facility] PO, Drug form: [place] TAB, BID-Meals, Dosing Weight 80.5, kg, Start date: 01/09/15 8:00:00, Duration: 30 day, Stop date: 02/07/15 17:00:00Notes: Give with food. (Same As: Coreg) NS 1,000 mL 1,000 mL, No Longer [place] Rate: 75 Active 2014 [facility] ml/hr, Infuse Center over: 13.3 hr, Route: IV, Dosing Weight 80.5 kg, Total Volume: 1,000, Start date: 01/09/15 2:08:00, Duration: 30 day, Stop date: 02/08/15 2:07:00 Acetaminophen 325 mg, 1 tab, No Longer [place] Route: PO, Active 2014 [facility] Drug form: [facility] TAB, Q6H, Dosing Weight 80.5, kg, PRN Pain Score 1-3, Start date: 01/09/15 0:24:00, Duration: 30 day, Stop date: 02/08/15 0:23:00Notes: Do not exceed 4 gm/day. (Same as: Tylenol) Zofran 4 mg, 2 mL, No Longer [place] Route: IVP, Active 2014 [facility] Drug form: [facility] INJ, Q4H, Dosing Weight 80.5, kg, PRN Nausea, Start date: 01/09/15 0:23:00, Duration: 30 day, Stop date: 02/08/15 0:22:00Notes: (Same as: Zofran) MEDICATION WASTE Product Size: 4 mg Product Wasted: ___ mg Ranitidine 150 MG 150 mg=1 cap, No Longer [facility] Oral Capsule PO, BID, # 60 Active 2014 Medical cap, 0 Center Refill(s) lisinopril 20 mg 20 mg=1 tab, Active [facility] oral tablet PO, Daily, # 2014 [facility] 30 tab, 0 Center Refill(s) atorvastatin 40 40 mg=1 tab, Active [facility] MG Oral Tablet PO, Bedtime, # 2015 Medical [Lipitor] 30 tab, 0 Center Refill(s) carvedilol 6.25 6.25 mg=1 tab, Active [facility] MG Oral Tablet PO, BID, # 60 2015 [facility] [Coreg] tab, 0 Center Refill(s) clopidogrel 75 MG 75 mg=1 tab, Active [facility] Oral Tablet PO, Daily, # 2015 [facility] [Plavix] 30 tab, 0 Center Refill(s) Aspirin 81 MG 81 mg=1 tab, Active [facility] Enteric Coated PO, Daily, # 2014 Medical Tablet 90 tab, 3 Center Refill(s) Allergies, Adverse Reactions, Alerts Substance Category Reaction Severity Reaction Status Date Comments Source type Reported Immunizations Immunization Date Site Status Last Comments Source Given Updated pneumococcal Right completed [facility] 23-valent 5 [facility] Results Order Name Results Value Reference Date Interpretation Comments Source Range CHEM PANEL Calcium Lvl 7.9 mg/dL 8.5 - 10.5 11/17 [facility] CHEM PANEL Potassium 3.9 meq/L 3.5 - 5.1 11/17 MH Lvl [facility] CHEM PANEL Chloride Lvl 109 meq/L 95 - 109 11/17 [facility] CHEM PANEL CO2 24 meq/L 24 - 32 11/17 [facility] CHEM PANEL Creatinine 1.60 mg/dL 0.50 - 11/17 MH Lvl 1.40 [facility] CHEM PANEL Sodium Lvl 140 meq/L 135 - 145 11/17 [facility] CHEM PANEL eGFR 46 11/17 Result Comment: [...] is not recommended in the following populations: [address] Individuals with unstable creatinine concentrations, including [...] Lvl 88 mg/dL 70 - 99 11/17 [facility] CHEM PANEL BUN 21 mg/dL 7 - 22 11/17 [facility] CHEM PANEL AGAP 10.9 meq/L 10.0 - 11/17 MH 20. [facility] HEMATOLOGY Hgb 14.4 g/dL 14.0 - 11/17 MH 18.0 [facility] HEMATOLOGY RBC 4.50 M/CMM 4.70 - 11/17 MH 6.10 [facility] HEMATOLOGY WBC 5.0 K/CMM 3.7 - 10.4 11/17 [facility] HEMATOLOGY MCHC 33.6 g/dL 32.0 - 11/17 MH 36.0 [facility] HEMATOLOGY RDW 13.7 % 11.5 - 11/17 MH 14. [facility] HEMATOLOGY MCV 95.2 fL 80.0 - 11/17 MH 94.0 [facility] HEMATOLOGY MCH 32.0 pg 27.0 - 11/17 MH 31.0 [facility] HEMATOLOGY Hct 42.8 % 42.0 - 11/17 MH 54.0 [facility] HEMATOLOGY MPV 10.3 fL 7.4 - 10.4 11/17 [facility] HEMATOLOGY Platelet 144 K/CMM 133 - 450 11/17 [facility] HEMATOLOGY Plt Morph Normal 11/17 [facility] (11/18/15 5:49 AM) HEMATOLOGY Segs 44.7 % 45.0 - 11/17 MH 75.0 [facility] HEMATOLOGY Eosinophils 0.2 K/CMM 0.0 - 0.5 11/17 [facility] HEMATOLOGY Monocytes 10.0 % 2.0 - 12.0 11/17 [facility] HEMATOLOGY Eosinophils 3.5 % 0.0 - 4.0 11/17 [facility] HEMATOLOGY Monocytes # 0.5 K/CMM 0.0 - 0.8 11/17 [facility] HEMATOLOGY Lymphocytes 2.0 K/CMM 1.0 - 5.5 11/17 [facility] HEMATOLOGY Segs-Bands # 2.2 K/CMM 1.5 - 8.1 11/17 [facility] HEMATOLOGY Lymphocytes 40.4 % 20.0 - 11/17 MH 40.0 [facility] HEMATOLOGY Basophils 1.4 % 0.0 - 1.0 11/17 [facility] HEMATOLOGY Basophils # 0.1 K/CMM 0.0 - 0.2 11/17 [facility] CHEM PANEL eGFR 50 11/16 Result Comment: [...] is not recommended in the following populations: [facility] 3m2 Individuals with unstable creatinine concentrations, including [...] Lvl 84 mg/dL 70 - 99 11/16 [facility] CHEM PANEL Calcium Lvl 8.4 mg/dL 8.5 - 10.5 11/16 [facility] CHEM PANEL AGAP 13.3 meq/L 10.0 - 11/16 MH 20.0 [facility] CHEM PANEL CO2 22 meq/L 24 - 32 11/16 [facility] CHEM PANEL Potassium 4.3 meq/L 3.5 - 5.1 11/16 Lvl [facility] CHEM PANEL Chloride Lvl 109 meq/L 95 - 109 11/16 [facility] CHEM PANEL Sodium Lvl 140 meq/L 135 - 145 11/16 [facility] CHEM PANEL BUN 23 mg/dL 7 - 22 11/16 [facility] CHEM PANEL Creatinine 1.50 mg/dL 0.50 - 11/16 Lvl 1.40 [facility] Retroperit Retroperiton The right kidney [id number] x 4.5 x 5.4 cm. The left kidney measures 10.2 x 5.6 x 5.3 cm. Accentuation of the corticomedullary differentiation is noted at the kidneys bilaterally. The urinary bladder [facility] complete is unremarkable sonographically. Neither ureteral jet is identified within the urinary bladder lumen. [facility] w w Doppler US Doppler US [...] Lvl 110 meq/L 95 - 109 11/15 [facility] ELECTROLYT Sodium Lvl 139 meq/L 135 - 145 11/15 [facility] ELECTROLYT Creatinine 1.80 mg/dL 0.50 - 11/15 ES Lvl 1.40 /2015 [facility] ELECTROLYT eGFR 40 11/15 Result Comment: The eGFR is calculated using the CKD-EPI formula. In most young, healthy individuals the eGFR will be >90 mL/ min/1.73m2. The eGFR declines with age. An eGFR of 60-89 may be normal in [facility] mL/min/1.7 some populations, particularly the elderly, for whom the CKD-EPI formula has not been extensively validated. Use of the eGFR is not recommended in the following populations: [facility] 3m2 Individuals with unstable creatinine concentrations, including [...] CO2 22 meq/L 24 - 32 11/15 [facility] ELECTROLYT Calcium Lvl 8.0 mg/dL 8.5 - 10.5 11/15 ES [facility] ELECTROLYT AGAP 11.3 meq/L 10.0 - 11/15 ES 20.0 [facility] ELECTROLYT Potassium 4.3 meq/L 3.5 - 5.1 11/15 ES Lvl [facility] ELECTROLYT BUN 28 mg/dL 7 - 22 11/15 ES [facility] ELECTROLYT Glucose Lvl 87 mg/dL 70 - 99 11/15 [facility] HEMATOLOGY Hct 48.9 % 42.0 - 11/15 54.0 [facility] HEMATOLOGY WBC 6.6 K/CMM 3.7 - 10.4 11/15 /2015 [facility] HEMATOLOGY RBC 5.05 M/CMM 4.70 - 11/15 6.10 /2015 [facility] HEMATOLOGY Hgb 16.2 g/dL 14.0 - 11/15 18.0 /2015 [facility] HEMATOLOGY MPV 10.6 fL 7.4 - 10.4 11/15 [facility] HEMATOLOGY MCH 32.2 pg 27.0 - 11/15 31.0 /2015 [facility] HEMATOLOGY MCHC 33.2 g/dL 32.0 - 11/15 36.0 /2015 [facility] HEMATOLOGY RDW 13.9 % 11.5 - 11/15 14.5 /2015 [facility] HEMATOLOGY Platelet 144 K/CMM 133 - 450 11/15 [facility] HEMATOLOGY MCV 96.9 fL 80.0 - 11/15 94.0 [facility] HEMATOLOGY Eosinophils 4.6 % 0.0 - 4.0 11/15 [facility] HEMATOLOGY Monocytes 15.7 % 2.0 - 12.0 11/15 [facility] HEMATOLOGY Segs-Bands # 2.2 K/CMM 1.5 - 8.1 11/15 [facility] HEMATOLOGY Basophils 1.3 % 0.0 - 1.0 11/15 [facility] HEMATOLOGY Lymphocytes 3.0 K/CMM 1.0 - 5.5 11/15 /2015 [facility] HEMATOLOGY Monocytes # 1.0 K/CMM 0.0 - 0.8 11/15 [facility] HEMATOLOGY Eosinophils 0.3 K/CMM 0.0 - 0.5 11/15 # /2015 [facility] HEMATOLOGY Basophils # 0.1 K/CMM 0.0 - 0.2 11/15 [facility] HEMATOLOGY Lymphocytes 45.6 % 20.0 - 11/15 40.0 /2015 [facility] HEMATOLOGY Segs 32.8 % 45.0 - 11/15 75.0 [facility] URINE AND UA null 0.1 - 1.0 11/15 STOOL Urobilinogen /2015 [facility] URINE AND UA Sq Epi Occasional Few /LPF 11/15 STOOL /LPF /2015 [facility] URINE AND UA WBC 2 /HPF 0 - 5 11/15 STOOL /2015 [facility] URINE AND UA Nitrite Negative Negative 11/15 STOOL /2015 [facility] (11/16/15 1:57 AM) URINE AND UA Leuk Est Negative Negative 11/15 STOOL [facility] (11/16/15 1:57 AM) URINE AND UA RBC 1 /HPF 0 - 2 11/15 STOOL [facility] URINE AND UA Mucus Few /LPF None Seen 11/15 STOOL /LPF /2015 [facility] URINE AND UA Hyal Cast 9 /LPF 0 - 2 11/15 STOOL [facility] URINE AND UA Bacteria Occasional None Seen 11/15 STOOL /HPF /HPF [facility] URINE AND UA Turbidity Clear Clear 11/15 STOOL [facility] (11/16/15 1:57 AM) URINE AND UA pH 5.0 5.0 - 8.0 11/15 STOOL [facility] URINE AND UA Spec Grav 1.015 <=1.030 11/15 STOOL [facility] URINE AND UA Bili Negative Negative 11/15 STOOL [facility] *NA* (11/16/15 1:57 AM) URINE AND UA Protein Negative Negative 11/15 STOOL mg/dL mg/dL [facility] URINE AND UA Glucose 50 mg/dL Negative 11/15 STOOL mg/dL [facility] URINE AND UA Blood Small Negative 11/15 STOOL [facility] *ABN* (11/16/15 1:57 AM) URINE AND UA Ketones Negative Negative 11/15 STOOL mg/dL mg/dL [facility] URINE AND UA Color Light Yellow Yellow 11/15 [facility] *NA* (11/16/15 1:57 AM) URINE CHEM U Prot/Creat 0.2 11/15 [facility] URINE CHEM U Eos None Seen None Seen 11/15 [facility] (11/16/15 1:57 AM) URINE CHEM U Creatinine 140.00 11/15 mg/dL [facility] URINE CHEM U Protein 32.2 mg/dL 11/15 [facility] TOXICOLOGY Phenytoin 0.92 ug/ml 1.00 - 11/14 Free 2.00 [facility] CHEM PANEL Phosphorus 3.5 mg/dL 2.5 - 4.5 11/13 [facility] CHEM PANEL A/G Ratio 0.7 0.7 - 1.6 11/13 [facility] CHEM PANEL Globulin 4.2 g/dL 2.0 - 4.0 11/13 [facility] CHEM PANEL B/C Ratio 16 6 - 25 11/13 [facility] CHEM PANEL ASPARTATE 22 unit/L 0 - 37 11/13 TRANSAMINASE /2015 [facility] CHEM PANEL ALANINE 31 unit/L 0 - 65 11/13 AMINOTRANSFE /2015 [facility] RASE CHEM PANEL Albumin Lvl 3.1 g/dL 3.5 - 5.0 11/13 [facility] CHEM PANEL Total 7.3 g/dL 6.4 - 8.4 11/13 Protein [facility] CHEM PANEL Bili Total 0.4 mg/dL 0.2 - 1.3 11/13 [facility] CHEM PANEL Alk Phos 46 unit/L 39 - 136 11/13 [facility] CHEM PANEL Magnesium 2.1 mg/dL 1.8 - 2.4 11/13 Lvl /2015 [facility] HEMATOLOGY MPV 11.1 fL 7.4 - 10.4 11/13 [facility] HEMATOLOGY MCH 31.9 pg 27.0 - 11/13 31.0 [facility] HEMATOLOGY MCHC 33.1 g/dL 32.0 - 11/13 36.0 [facility] HEMATOLOGY Platelet 99 K/CMM 133 - 450 11/13 [facility] HEMATOLOGY RDW 13.7 % 11.5 - 11/13 14.5 [facility] HEMATOLOGY WBC 4.4 K/CMM 3.7 - 10.4 11/13 [facility] HEMATOLOGY MCV 96.4 fL 80.0 - 11/13 94.0 [facility] HEMATOLOGY RBC 5.03 M/CMM 4.70 - 11/13 MH 6.10 /2015 [facility] HEMATOLOGY Hgb 16.1 g/dL 14.0 - 11/13 18.0 [facility] HEMATOLOGY Hct 48.5 % 42.0 - 11/13 54.0 [facility] HEMATOLOGY Monocytes # 1.0 K/CMM 0.0 - 0.8 11/13 [facility] HEMATOLOGY Eosinophils 0.3 K/CMM 0.0 - 0.5 11/13 MH # /2015 [facility] HEMATOLOGY Lymphocytes 1.0 K/CMM 1.0 - 5.5 11/13 MH # /2015 [facility] HEMATOLOGY Basophils 1.2 % 0.0 - 1.0 11/13 [facility] HEMATOLOGY Eosinophils 6.6 % 0.0 - 4.0 11/13 [facility] HEMATOLOGY Monocytes 23.6 % 2.0 - 12.0 11/13 [facility] HEMATOLOGY Basophils # 0.1 K/CMM 0.0 - 0.2 11/13 [facility] HEMATOLOGY Segs-Bands # 2.1 K/CMM 1.5 - 8.1 11/13 [facility] HEMATOLOGY Segs 46.6 % 45.0 - 11/13 MH 75.0 /2016 [facility] HEMATOLOGY Lymphocytes 22.0 % 20.0 - 11/13 MH 40.0 /2016 [facility] IMMUNOLOGY Prealbumin 21.8 mg/dL 18.0 - 11/13 45.0 2016 [facility] Carotid Carotid Study: Carotid artery Doppler bilat US ; Age: 59 years y/o Male 11/09 - artery - [facility] Doppler Doppler Clinical Indication: Transient cerebral ischem; [...] occlusion High, low, or Variable undetectable SL: [id number] CHEM PANEL Phosphorus 3.0 mg/dL 2.5 - 4.5 11/08 [facility] CHEM PANEL eGFR 63 11/08 Result Comment: [...] is not recommended in the following populations: [place] [address] Individuals with unstable creatinine concentrations, including patients [...] Lvl 90 mg/dL 70 - 99 11/08 [facility] CHEM PANEL BUN 12 mg/dL 7 - 22 11/08 [facility] CHEM PANEL Albumin Lvl 3.0 g/dL 3.5 - 5.0 11/08 [facility] CHEM PANEL CO2 23 meq/L 24 - 32 11/08 [facility] CHEM PANEL Chloride Lvl 107 meq/L 95 - 109 11/08 [facility] CHEM PANEL Total 7.0 g/dL 6.4 - 8.4 11/08 [facility] CHEM PANEL Calcium Lvl 8.4 mg/dL 8.5 - 10.5 11/08 [facility] CHEM PANEL Creatinine 1.40 mg/dL 0.50 - 11/08 Lvl 1.40 [facility] CHEM PANEL Sodium Lvl 141 meq/L 135 - 145 11/08 [facility] CHEM PANEL Potassium 3.6 meq/L 3.5 - 5.1 11/08 Lvl [facility] CHEM PANEL ASPARTATE 19 unit/L 0 - 37 11/08 TRANSAMINASE [facility] CHEM PANEL ALANINE 18 unit/L 0 - 65 11/08 AMINOTRANSFE /2015 [facility] RASE CHEM PANEL Bili Total 1.2 mg/dL 0.2 - 1.3 11/08 [facility] CHEM PANEL Alk Phos 50 unit/L 39 - 136 11/08 [facility] CHEM PANEL B/C Ratio 9 6 - 25 11/08 [facility] CHEM PANEL A/G Ratio 0.8 0.7 - 1.6 11/08 [facility] CHEM PANEL Globulin 4.0 g/dL 2.0 - 4.0 11/08 [facility] CHEM PANEL AGAP 14.6 meq/L 10.0 - 11/08 MH 20.0 [facility] CHEM PANEL Magnesium 1.8 mg/dL 1.8 - 2.4 11/08 Lvl /2015 [facility] HEMATOLOGY Lymphocytes 31.3 % 20.0 - 11/08 MH 40.0 [facility] HEMATOLOGY Monocytes 12.1 % 2.0 - 12.0 11/08 [facility] HEMATOLOGY Segs 54.5 % 45.0 - 11/08 MH 75.0 [facility] HEMATOLOGY Basophils 0.5 % 0.0 - 1.0 11/08 [facility] HEMATOLOGY Eosinophils 1.6 % 0.0 - 4.0 11/08 [facility] HEMATOLOGY Segs-Bands # 3.5 K/CMM 1.5 - 8.1 11/08 [facility] HEMATOLOGY Eosinophils 0.1 K/CMM 0.0 - 0.5 11/08 MH /2015 [facility] HEMATOLOGY Basophils # 0.0 K/CMM 0.0 - 0.2 11/08 [facility] HEMATOLOGY Monocytes # 0.8 K/CMM 0.0 - 0.8 11/08 [facility] HEMATOLOGY Lymphocytes 2.0 K/CMM 1.0 - 5.5 11/08 MH [facility] HEMATOLOGY Platelet 78 K/CMM 133 - 450 11/08 [facility] HEMATOLOGY MPV 12.0 fL 7.4 - 10.4 11/08 [facility] HEMATOLOGY RDW 14.1 % 11.5 - 11/08 MH 14. [facility] HEMATOLOGY MCH 32.2 pg 27.0 - 11/08 MH 31.0 [facility] HEMATOLOGY MCHC 33.2 g/dL 32.0 - 11/08 MH 36.0 [facility] HEMATOLOGY Hgb 16.3 g/dL 14.0 - 11/08 18.0 /2015 [facility] HEMATOLOGY Hct 49.0 % 42.0 - 11/08 54.0 [facility] HEMATOLOGY MCV 96.9 fL 80.0 - 11/08 94.0 [facility] HEMATOLOGY WBC 6.5 K/CMM 3.7 - 10.4 11/08 [facility] HEMATOLOGY RBC 5.06 M/CMM 4.70 - 11/08 6.10 /2015 [facility] Brain wo Brain wo EXAM: MRI BRAIN WITHOUT CONTRAST 11/08 - contrast contrast MRI /2015 - [facility] MRI DATE: 11/08/2015 12:02 AM CDT Read [...] ng/mL 0.00 - 11/07 ENZYMES 0.40 /2016 [facility] ELECTROLYT AGAP 14.7 meq/L 10.0 - 11/07 ES 20.0 [facility] ELECTROLYT eGFR 58 11/07 Result Comment: The [...] is not recommended in the following populations: [facility] 3m2 Individuals with unstable creatinine concentrations, including [...] Lvl 110 meq/L 95 - 109 11/07 [facility] ELECTROLYT BUN 18 mg/dL 7 - 22 11/07 [facility] ELECTROLYT Sodium Lvl 143 meq/L 135 - 145 11/07 [facility] ELECTROLYT Creatinine 1.50 mg/dL 0.50 - 11/07 [facility] Lvl 1.40 [facility] ELECTROLYT Potassium 3.7 meq/L 3.5 - 5.1 11/07 [facility] Lv [facility] ELECTROLYT CO2 22 meq/L 24 - 32 11/07 [facility] ELECTROLYT Calcium Lvl 8.5 mg/dL 8.5 - 10.5 11/07 [facility] ELECTROLYT Glucose Lvl 96 mg/dL 70 - 99 11/07 [facility] HEMATOLOGY MCH 32.0 pg 27.0 - 11/07 31.0 [facility] HEMATOLOGY RDW 14.0 % 11.5 - 11/07 14. [facility] HEMATOLOGY MCHC 33.2 g/dL 32.0 - 11/07 36.0 [facility] HEMATOLOGY MCV 96.6 fL 80.0 - 11/07 94.0 [facility] HEMATOLOGY Hct 44.4 % 42.0 - 11/07 54.0 [facility] HEMATOLOGY WBC 9.0 K/CMM 3.7 - 10.4 11/07 [facility] HEMATOLOGY Hgb 14.7 g/dL 14.0 - 11/07 18.0 [facility] HEMATOLOGY RBC 4.60 M/CMM 4.70 - 11/07 6.10 [facility] HEMATOLOGY MPV 12.1 fL 7.4 - 10.4 11/07 [facility] HEMATOLOGY Platelet 91 K/CMM 133 - 450 11/07 [facility] HEMATOLOGY Basophils 0.7 % 0.0 - 1.0 11/07 [facility] HEMATOLOGY Eosinophils 0.4 % 0.0 - 4.0 11/07 [facility] HEMATOLOGY Monocytes 8.9 % 2.0 - 12.0 11/07 [facility] HEMATOLOGY RBC Morph Normal 11/07 [facility] (11/08/15 6:00 AM) HEMATOLOGY Plt Morph Normal 11/07 [facility] (11/08/15 6:00 AM) HEMATOLOGY Lymphocytes 1.7 K/CMM 1.0 - 5.5 11/07 MH # /2016 [facility] HEMATOLOGY Monocytes # 0.8 K/CMM 0.0 - 0.8 11/07 [facility] HEMATOLOGY Basophils # 0.1 K/CMM 0.0 - 0.2 11/07 [facility] HEMATOLOGY Segs-Bands # 6.4 K/CMM 1.5 - 8.1 11/07 [facility] HEMATOLOGY Lymphocytes 19.1 % 20.0 - 11/07 40.0 [facility] HEMATOLOGY Segs 70.9 % 45.0 - 11/07 75.0 [facility] CARDIAC Troponin-I 0.03 ng/mL 0.00 - 11/07 ENZYMES 0.40 [facility] CHEM PANEL eGFR 53 11/07 Result Comment: [...] is not recommended in the following populations: [address] Individuals with unstable creatinine concentrations, including [...] Lvl 8.3 mg/dL 8.5 - 10.5 11/07 [facility] CHEM PANEL Chloride Lvl 109 meq/L 95 - 109 11/07 [facility] CHEM PANEL CO2 23 meq/L 24 - 32 11/07 [facility] CHEM PANEL BUN 19 mg/dL 7 - 22 11/07 /2015 [facility] CHEM PANEL Glucose Lvl 100 mg/dL 70 - 99 11/07 /2015 [facility] CHEM PANEL Sodium Lvl 142 meq/L 135 - 145 11/07 [facility] CHEM PANEL Potassium 4.0 meq/L 3.5 - 5.1 11/07 Result MH Lvl /2015 Comment: [facility] Specimen Slightly Hemolyzed. CHEM PANEL Creatinine 1.60 mg/dL 0.50 - 11/07 Lvl 1.40 /2015 [facility] CHEM PANEL AGAP 14.0 meq/L 10.0 - 11/07 MH 20.0 /2015 [facility] DRUG U Benzodia Negative Negative 11/07 SCREEN Scr [facility] *NA* (11/08/15 3:02 AM) DRUG U Dian Scr Negative Negative 11/07 SCREEN [facility] *NA* (11/08/15 3:02 AM) DRUG U Amph Scr Negative Negative 11/07 SCREEN [facility] *NA* (11/08/15 3:02 AM) DRUG U Cannab Scr Positive Negative 11/07 SCREEN [facility] *ABN* (11/08/15 3:02 AM) DRUG U Cocaine Negative Negative 11/07 SCREEN Scr [facility] *NA* (11/08/15 3:02 AM) DRUG U Phencyc Negative Negative 11/07 SCREEN Scr [facility] *NA* (11/08/15 3:02 AM) DRUG U Opiate Scr Negative Negative 11/07 SCREEN [facility] *NA* (11/08/15 3:02 AM) DRUG UDS Note See Note 11/07 SCREEN /2015 [facility] (11/08/15 3:02 AM) IMMUNOLOGY Treponemal Non Reactive Non 11/07 Scr Reactive /2015 [facility] *NA* (11/08/15 3:02 AM) LIPIDS Trig 46 mg/dL <=149 11/07 mg/dL [facility] LIPIDS Chol 88 mg/dL <=199 11/07 mg/dL [facility] LIPIDS HDL 42 mg/dL >=61 mg/dL 11/07 [facility] LIPIDS LDL 37 mg/dL <=99 mg/dL 11/07 (Calculated) /2015 [facility] LIPIDS VLDL 9 11/07 /2015 [facility] LIPIDS CHD Risk 2.10 4.00 - 11/07 7.30 /2015 [facility] SPECIAL Hgb A1C 5.7 % <=5.6 % 11/07 CHEMISTRY [facility] URINE AND UA Ketones Negative Negative 11/07 STOOL mg/dL mg/dL [facility] URINE AND UA Glucose 50 mg/dL Negative 11/07 STOOL mg/dL [facility] URINE AND UA Protein Negative Negative 11/07 STOOL mg/dL mg/dL [facility] URINE AND UA pH 6.0 5.0 - 8.0 11/07 STOOL [facility] URINE AND UA Spec Grav 1.012 <=1.030 11/07 STOOL [facility] URINE AND UA Turbidity Clear Clear 11/07 STOOL [facility] (11/08/15 3:02 AM) URINE AND UA Color Light Yellow Yellow 11/07 STOOL [facility] *NA* (11/08/15 3:02 AM) URINE AND UA Mucus Few /LPF None Seen 11/07 STOOL /LPF [facility] URINE AND UA Bacteria Occasional None Seen 11/07 STOOL /HPF /HPF [facility] URINE AND UA RBC 21 /HPF 0 - 2 11/07 STOOL [facility] URINE AND UA WBC 25 /HPF 0 - 5 11/07 STOOL [facility] URINE AND UA Sq Epi Occasional Few /LPF 11/07 STOOL /LPF [facility] URINE AND UA Leuk Est Negative Negative 11/07 STOOL [facility] (11/08/15 3:02 AM) URINE AND UA Nitrite Negative Negative 11/07 STOOL [facility] (11/08/15 3:02 AM) URINE AND UA Blood Moderate Negative 11/07 [facility] *ABN* (11/08/15 3:02 AM) URINE AND UA Bili Negative Negative 11/07 STOOL [facility] *NA* (11/08/15 3:02 AM) URINE AND UA null 0.1 - 1.0 11/07 [facility] Urobilinogen [facility] CHEM PANEL Magnesium 1.8 mg/dL 1.8 - 2.4 01/10 [facility] Lvl /2014 [facility] CHEM PANEL Phosphorus 3.1 mg/dL 2.5 - 4.5 01/10 [facility]2014 [facility] CHEM PANEL eGFR 84 01/10 1Result Comment: The eGFR is calculated using the CKD-EPI formula. In most young, healthy individuals the eGFR will be >90 mL/ min/1.73m2. The eGFR declines with age. An eGFR of 60-89 may be normal in [facility] mL/min/1. some populations, particularly the elderly, for whom the CKD-EPI formula has not been extensively validated. Use of the eGFR is not recommended in the following populations: [address] Individuals with unstable creatinine concentrations, including [...] Creatinine 1.1 mg/dL 0.5 - 1.4 01/10 [facility] CHEM PANEL Potassium 3.6 meq/L 3.5 - 5.1 01/10 [facility] CHEM PANEL Sodium Lvl 141 meq/L 135 - 145 01/10 [facility]2014 [facility] CHEM PANEL Calcium Lvl 8.2 mg/dL 8.5 - 10.5 01/10 [facility]2014 [facility] CHEM PANEL CO2 28 meq/L 24 - 32 01/10 [facility] CHEM PANEL Chloride Lvl 106 meq/L 95 - 109 01/10 [facility] CHEM PANEL AGAP 10.6 meq/L 10.0 - 01/10 [facility] 20.0 [facility] CHEM PANEL Glucose Lvl 87 mg/dL 70 - 99 01/10 3Interpretive Data: Adult reference range values reflect the clinical guidelines of the [employer]. [facility] CHEM PANEL BUN 6 mg/dL - 01/10 [facility] HEMATOLOGY Tear Cell Moderate None Seen 01/10 [facility] [place] (01/10/15 3:59 AM) HEMATOLOGY Basophils # 0.1 K/CMM 0.0 - 0.2 01/10 [facility]2014 [facility] HEMATOLOGY Anisocyte 1+ None Seen 01/10 [facility] [place] (01/10/15 3:59 AM) HEMATOLOGY Microcyte 2+ None Seen 01/10 [facility] (01/10/15 3:59 AM) HEMATOLOGY Hypochrom 1+ None Seen 01/10 [facility] (01/10/15 3:59 AM) Center HEMATOLOGY Polychrom Moderate None Seen 01/10 [facility] *ABN* Center (01/10/15 3:59 AM) HEMATOLOGY Plt Morph Normal 01/10 [facility] (01/10/15 3:59 AM) [place] HEMATOLOGY Segs 68.8 % 45.0 - 01/10 [place] 75.0 /2014 [facility] HEMATOLOGY Lymphocytes 15.6 % 20.0 - 01/10 [place] 40.0 [facility] HEMATOLOGY Eosinophils 0.2 K/CMM 0.0 - 0.5 01/10 # /2014 [facility] HEMATOLOGY Basophils 1.4 % 0.0 - 1.0 01/10 [facility] HEMATOLOGY Segs-Bands # 5.5 K/CMM 1.5 - 8.1 01/10 [facility] HEMATOLOGY Lymphocytes 1.3 K/CMM 1.0 - 5.5 01/10 /2014 [facility] HEMATOLOGY Monocytes # 0.9 K/CMM 0.0 - 0.8 01/10 [facility] HEMATOLOGY Monocytes 11.1 % 2.0 - 12.0 01/10 [facility] HEMATOLOGY Eosinophils 3.1 % 0.0 - 4.0 01/10 [facility] HEMATOLOGY MCHC 31.5 g/dL 32.0 - 01/10 [place] 36.0 [facility] HEMATOLOGY Hct 29.2 % 42.0 - 01/10 54.0 /2014 [facility] HEMATOLOGY MCH 21.7 pg 27.0 - 01/10 [place] 31.0 [facility] HEMATOLOGY Hgb 9.2 g/dL 14.0 - 01/10 [place] 18.0 [facility] HEMATOLOGY MCV 69.0 fL 80.0 - 01/10 [place] 94.0 [facility] HEMATOLOGY WBC 8.0 K/CMM 3.7 - 10.4 01/10 [facility] HEMATOLOGY RBC 4.23 M/CMM 4.70 - 01/10 [place] 6.10 [facility] HEMATOLOGY MPV 9.0 fL 7.4 - 10.4 01/10 [facility] HEMATOLOGY Platelet 288 K/CMM 133 - 450 01/10 [facility] HEMATOLOGY RDW 25.9 % 11.5 - 01/10 14. [facility] HEMATOLOGY Hct 29.1 % 42.0 - 01/09 .0 [facility] HEMATOLOGY Hgb 9.1 g/dL 14.0 - 01/09 . [facility] HEMATOLOGY Hgb 8.8 g/dL 14.0 - 01/09 .0 [facility] HEMATOLOGY Hct 29.0 % 42.0 - 01/09 .0 [facility] CHEM PANEL Magnesium 2.0 mg/dL 1.8 - 2.4 01/09 [facility] ELECTROLYT AGAP 11.7 meq/L 10.0 - 01/09 [facility] . [facility] ELECTROLYT CO2 28 meq/L 24 - 32 01/09 [facility] ELECTROLYT Calcium Lvl 8.3 mg/dL 8.5 - 10.5 01/09 [facility] ELECTROLYT Chloride Lvl 104 meq/L 95 - 109 01/09 [facility] ELECTROLYT eGFR 94 01/09 2Result Comment: The eGFR is calculated using the CKD-EPI formula. In most young, healthy individuals the eGFR will be >90 mL/ min/1.73m2. The eGFR declines with age. An eGFR of 60-89 may be normal in [facility] mL/min/1. some populations, particularly the elderly, for whom the CKD-EPI formula has not been extensively validated. Use of the eGFR is not recommended in the following populations: [address] Individuals with unstable creatinine concentrations, including [...] reference range values reflect the clinical guidelines [facility] of the [employer]. [facility] ELECTROLYT Sodium Lvl 140 meq/L 135 - 145 01/09 [facility] ELECTROLYT Potassium 3.7 meq/L 3.5 - 5.1 01/09 [facility] ES Lvl [facility] ELECTROLYT Creatinine 1.0 mg/dL 0.5 - 1.4 01/09 [facility] ES Lv [facility] ELECTROLYT BUN 10 mg/dL 7 - 01/09 [facility] ES [facility] HEMATOLOGY PT 13.9 s 12.0 - 01/09 [place] 14.7 /2014 [facility] HEMATOLOGY PTT 34.2 s 22.9 - 01/09 6Interpretive [facility] 35.8 Data: [facility] Range: 57 - 92 [facility] HEMATOLOGY INR 1.07 0.85 - 01/09 5Interpretive Data: RECOMMENDED RANGES FOR PROTIME INR: [facility] 1. 2.0-3.0 for most medical and surgical thromboembolic states. Medical 2.5-3.5 for artificial heart valves and recurrent embolism. Center INR SHOULD BE USED ONLY FOR PATIENTS ON STABLE ANTICOAGULANT THERAPY. HEMATOLOGY RBC 4.24 M/CMM 4.70 - 01/09 6.10 [facility] HEMATOLOGY MCH 21.2 pg 27.0 - 01/09 31.0 [facility] HEMATOLOGY MCV 68.3 fL 80.0 - 01/09 [place] 94.0 [facility] HEMATOLOGY Platelet 312 K/CMM 133 - 450 01/09 [facility] HEMATOLOGY RDW 25.6 % 11.5 - 01/09 14.5 [facility] HEMATOLOGY MCHC 31.1 g/dL 32.0 - 01/09 [place] 36.0 /2014 [facility] HEMATOLOGY MPV 8.8 fL 7.4 - 10.4 01/09 [facility] HEMATOLOGY WBC 9.9 K/CMM 3.7 - 10.4 01/09 [facility] HEMATOLOGY Hypochrom 1+ None Seen 01/09 /2014 Medical (01/09/15 1:35 AM) Center HEMATOLOGY Lymphocytes 1.6 K/CMM 1.0 - 5.5 01/09 # /2014 [facility] HEMATOLOGY Lymphocytes 16.6 % 20.0 - 01/09 [place] 40.0 /2014 [facility] HEMATOLOGY Monocytes 9.5 % 2.0 - 12.0 01/09 [facility] HEMATOLOGY Segs 71.1 % 45.0 - 01/09 [place] 75.0 /2014 [facility] HEMATOLOGY Plt Morph Normal 01/09 [facility] (01/09/15 1:35 AM) [place] HEMATOLOGY Segs-Bands # 7.0 K/CMM 1.5 - 8.1 01/09 [facility]2014 [facility] HEMATOLOGY Eosinophils 1.6 % 0.0 - 4.0 01/09 [facility]2014 [facility] HEMATOLOGY Anisocyte 1+ None Seen 01/09 [facility] *ABN* Center (01/09/15 1:35 AM) HEMATOLOGY Basophils 1.2 % 0.0 - 1.0 01/09 2014 [facility] HEMATOLOGY Eosinophils 0.2 K/CMM 0.0 - 0.5 01/09 [facility] /2014 [facility] HEMATOLOGY Microcyte 3+ None Seen 01/09 [facility] *NA* Center (01/09/15 1:35 AM) HEMATOLOGY Basophils # 0.1 K/CMM 0.0 - 0.2 01/09 2014 [facility] HEMATOLOGY Monocytes # 0.9 K/CMM 0.0 - 0.8 01/[address] Vital Signs Vital Sign Value Date Comments Source Heart Rate 66 11/18/2015 [facility] Systolic (mm Hg) 152 11/18/2015 [facility] Diastolic (mm Hg) 108 11/18/2015 [facility] Temperature Oral (F) 98.0 F 11/18/2015 [facility] Respitory Rate 20 11/18/2015 [facility] Diastolic (mm Hg) 107 11/18/2015 [facility] Systolic (mm Hg) 159 11/18/2015 [facility] Heart Rate 64 11/18/2015 [facility] Respitory Rate 20 11/18/2015 [facility] Diastolic (mm Hg) 99 11/18/2015 [facility] Systolic (mm Hg) 150 11/18/2015 [facility] Heart Rate 59 11/18/2015 [facility] Temperature Oral (F) 98.0 F 11/18/2015 [facility] Respitory Rate 20 11/18/2015 [facility] Temperature Oral (F) 98.6 F 11/17/2015 [facility] BMI Calculated 28.47 11/12/2015 [facility] Weight 87.443 11/12/2015 [facility] Height 175.26 cm 11/12/2015 [facility] Systolic (mm Hg) 140 11/11/2015 [facility] Diastolic (mm Hg) 103 11/11/2015 [facility] Temperature Oral (F) 99.2 F 11/11/2015 [facility] Respitory Rate 18 11/11/2015 [facility] Heart Rate 73 11/11/2015 [facility] Respitory Rate 18 11/11/2015 [facility] Systolic (mm Hg) 153 11/11/2015 [facility] Diastolic (mm Hg) 111 11/11/2015 [facility] Heart Rate 73 11/11/2015 [facility] Temperature Oral (F) 98.3 F 11/11/2015 [facility] Temperature Oral (F) 98.4 F 11/11/2015 [facility] Respitory Rate 18 11/11/2015 [facility] Systolic (mm Hg) 136 11/11/2015 [facility] Diastolic (mm Hg) 97 11/11/2015 [facility] Heart Rate 73 11/11/2015 [facility] BMI Calculated 34.05 11/08/2015 [facility] Height 165.1 cm 11/08/2015 [facility] Weight 92.813 11/08/2015 [facility] Temperature Oral (F) 96.6 F 01/10/2015 [facility] Respitory Rate 21 01/10/2015 [facility] Respitory Rate 24 01/10/2015 [facility] Systolic (mm Hg) 127 01/10/2015 [facility] Diastolic (mm Hg) 79 01/10/2015 [facility] Systolic (mm Hg) 157 01/10/2015 [facility] Diastolic (mm Hg) 113 01/10/2015 [facility] Respitory Rate 26 01/10/2015 [facility] Systolic (mm Hg) 144 01/10/2015 [facility] Diastolic (mm Hg) 98 01/10/2015 [facility] Temperature Oral (F) 97.6 F 01/10/2015 [facility] Temperature Oral (F) 95.9 F 01/10/2015 [facility] Height 182.88 cm 01/09/2015 [facility] BMI Calculated 24.07 01/09/2015 [facility] Weight 80.5 01/09/2015 [facility] Encounters Location Location Encounter Encounter Reason Attending ADM DC Status Source Details Type Number For Provider Date Date Visit [facility] [id number] Tobias 01/10 01/10 Mel[facility] L[facility] Observation 1 Jacey /2014 [facility] [id number] Jameel 11/07 11/10 Marco Machado /2015 Pending sale to [facility] Inpatient [id number] Carlos Enrique Allam 11/10 11/17 [facility] ion Procedures Procedure Code Date Perfomer Comments Source Hip replacement [id number] 07/22/2010 [facility] Hip replacement [id number] 07/22/2010 [facility] Stent [id number] 1CARDIAC [facility] placement<sup>1</ [facility] sup> Stent [id number] CARDIAC [facility] placement<sup>1</ sup>
[2019-01-03 16:49] LABS: Urine Amorphous Sediment 2+ /HPF (NONE SEEN); Urine Bacteria LOADED /HPF (NONE SEEN); Urine Culture Reflex Order NOT NEEDED; Urine RBC TNTC /HPF (NONE SEEN)
[2019-01-03 17:13] LABS: Absolute Lymphocytes (CBC) 0.7 K/uL (0.7-4.9); Basophils % 0.5 % (0-1.3); Hematocrit 53.1 % (39.6-49.0); Lymphocytes % 7.3 % (15.3-44.8); MPV 10.8 fL (7.6-11.3); Monocytes % 4.3 % (3.3-12.3); RBC Red Blood Cell Count 5.62 M/uL (4.33-5.43)
[2019-01-03] MEDS ORDERED: CIPROFLOXACIN HCL 500 MG TAB ONE (17:30)
[2019-01-03 17:52] LABS: Arterial Blood Carboxyhemoglob 0.9 % (0-1.5); Blood Gas Oxyhemoglobin 95.1 % (94-97); Blood O2 Saturation 96.6 % (92-98.5)
[2019-01-03] MEDS ORDERED: NA CHLORIDE 0.9% 1,000 ML ONE (18:05)
--- NOTE | 2019-01-03 18:05 | RAD REPORT ---
EXAM DESCRIPTION: US - Renal Ultrasound-Complete - 01/03/2019 5:25 pm CLINICAL HISTORY: blocked duncan;Pain Flank pain COMPARISON: Abdomen Pelvis Wo Contrast dated 07/22/2018 FINDINGS: Both kidneys are normal in size, shape and echotexture. The right kidney measures 10.7 x 5.6 x 5.3 cm. Mild right hydronephrosis. Small benign right renal cy sts. The left kidney measures 10.5 x 4.5 x 4.5 cm. No hydronephrosis, focal mass or perinephric fluid. The urinary bladder is incompletely distended without gross abnormality seen. IMPRESSION: Mild right hydronephrosis.
[2019-01-03 18:38] LABS: Albumin 3.3 g/dL (3.4-5.0); Bilirubin Direct 0.6 mg/dL (0-0.2); Bilirubin Total 1.8 mg/dL (0.2-1.0); Protein, Total 7.5 g/dL (6.4-8.2)
[2019-01-03] MEDS ORDERED: ACETAMINOPHEN 500 MG TAB ONE (19:03)
[2019-01-03 19:27] LABS: Platelet Estimate ADEQ; Urine White Blood Cell Casts OK
[2019-01-03 19:28] LABS: Blood Morphology Comment NOT SEEN (NOT SEEN)
--- NOTE | 2019-01-03 19:32 | ER ---
Nurse's Notes [facility] Name: Francheska Bolaños Jr Age: 63 yrs Sex: Male : 1955 Arrival Date: 01/03/2019 Time: 15:32 Bed 19 Private MD: Alexandre Cannon V Diagnosis: Retention of urine;Renal failure from postobstructive process, catheter malfunction;Dehydration;Urinary tract infection, site not specified Presentation: 01/03 16:03 Presenting complaint: Child states: had catheter placed on at Dr. Beltran's iw office, has not been having much urine out and has seemed to be in a lot of pain, daughter states pt has needed intermittent duncan placement since he had his stroke. 16:04 Transition of care: patient was not received from another setting of care. Onset of iw symptoms was January 03, 2019. Risk Assessment: Do you want to hurt yourself or someone else? Patient reports no desire to harm self or others. Initial Sepsis Screen: Does the patient meet any 2 criteria? No. Patient's initial sepsis screen is negative. Does the patient have a suspected source of infection? No. Patient's initial sepsis screen is negative. Care prior to arrival: None. 16:04 Method Of Arrival: Wheelchair iw 16:04 Acuity: MAGI 3 iw Historical: - Allergies: 16:26 No Known Allergies; iw - Home Meds: 16:28 aspirin 81 mg Oral TbEC 1 tab once daily [Active]; losartan 100 mg oral tab 1 tab once iw daily [Active]; carvedilol 3.125 mg oral tab 1 tab 2 times per day [Active]; atorvastatin 20 mg oral tab 1 tab once daily [Active]; cephalexin 500 mg Oral cap daily [Active]; levetiracetam 1,000 mg oral tab 1 tab every 12 hours [Active]; - PMHx: 16:28 CVA; High Cholesterol; Hypertension; GERD; Seizures; iw - PSHx: 16:28 RICARDA hip replacement; Leg stents; Loop recorder; iw - Immunization history:: Adult Immunizations unknown. - Social history:: Smoking status: unknown. - Ebola Screening: : Patient negative for fever greater than or equal to 101.5 degrees Fahrenheit, and additional compatible Ebola Virus Disease symptoms Patient denies exposure to infectious person Patient denies travel to an Ebola-affected area in the 21 days before illness onset No symptoms or risks identified at this time. Screenin:00 Abuse screen: Denies threats or abuse. Nutritional screening: No deficits noted. em Tuberculosis screening: No symptoms or risk factors identified. Fall Risk Secondary diagnosis (15 points) impaired mobility, CVA, Ambulatory Aid- None/Bed Rest/Nurse Assist (0 pts). Gait- Weak (10 pts.). Mental Status- Overestimates/Forgets Limitations (15 pts.). Total Thomas Fall Scale indicates High Risk Score (45 or more points). Side Rails Up X 2 Placed Close to Nursing Station Frequent Obs/Assessments Occuring. Assessment: 16:00 General: Appears in no apparent distress. uncomfortable, Behavior is calm, cooperative, em Denies fever. Pain: Complains of pain in suprapubic area. Neuro: Level of Consciousness is awake, alert, obeys commands, Oriented to person, place, time, situation, Weakness Gait is unsteady, Speech is slurred, Facial symmetry appears normal. Cardiovascular: Capillary refill < 3 seconds Patient's skin is warm and dry. Respiratory: Airway is patent Respiratory effort is even, unlabored, Respiratory pattern is regular, symmetrical. : Duncan in place Parent/caregiver report the patient having inability to void. Derm: Skin is intact, is healthy with good turgor, Skin is pink, warm \T\ dry. Musculoskeletal: Capillary refill < 3 seconds, Range of motion: intact in all extremities. 17:00 Reassessment: Patient appears in no apparent distress at this time. I agree with above iw assessment by Arias Vick LVN. 17:25 Reassessment: Patient appears in no apparent distress at this time. Patient and/or em family updated on plan of care and expected duration. Pain level reassessed. Patient is alert, oriented x 3, equal unlabored respirations, skin warm/dry/pink. unable to get IV at this time, provider notified, will hold medications until lab work returns. 18:25 Reassessment: Patient appears in no apparent distress at this time. Patient and/or em family updated on plan of care and expected duration. Pain level reassessed. Patient is alert, oriented x 3, equal unlabored respirations, skin warm/dry/pink. family at bedside. 20:08 Reassessment: Patient and/or family updated on plan of care and expected duration. Pain ed1 level reassessed. Neuro: Level of Consciousness is awake, alert, obeys commands, Oriented to person. 21:07 Reassessment: Patient appears in no apparent distress at this time. Patient and/or ed1 family updated on plan of care and expected duration. Pain level reassessed. [place] [phone]; [place] [phone]. 21:07 Neuro: Level of Consciousness is awake, alert, obeys commands, Oriented to person, ed1 place, situation. 22:42 Reassessment: Attempted to notify family member Kathy of patients admission. No ed1 answer when called. 22:44 Reassessment: Patient appears in no apparent distress at this time. Patient and/or ed1 family updated on plan of care and expected duration. Pain level reassessed. Patient denies pain at this time. Neuro: Level of Consciousness is awake, alert, obeys commands, Oriented to person, place, time, situation, pt answers yes or no to questions asked. Respiratory: Airway is patent Respiratory effort is even, unlabored, Respiratory pattern is regular, symmetrical, Breath sounds are clear bilaterally. : 3-way catheter in place to gravity drainage Urine is cloudy. Vital Signs: 16:05 BP 179 / 116; Pulse 110; Resp 30 S; Pulse Ox 96% on R/A; Weight 98.88 kg; Height 5 ft. iw 11 in. (180.34 cm); Pain 10/10; 16:28 BP 139 / 98; Pulse 100; Resp 20 S; Temp 98.6(TE); Pulse Ox 98% on R/A; iw 16:29 BP 139 / 98; Pulse 112; Resp 20; Temp 98.6(TE); Pulse Ox 98% on R/A; mh5 17:10 BP 123 / 87; Pulse 111; Resp 16; Pulse Ox 96% on R/A; em 18:36 BP 108 / 88; Pulse 115; Resp 18; Temp 98.3(TE); Pulse Ox 98% on R/A; mh5 18:46 Temp 100.6(O); em 19:36 BP 107 / 61; Pulse 104; Resp 20; Pulse Ox 99% on R/A; mt 20:08 BP 88 / 64; Pulse 95; Resp 28; Temp 99.8; Pulse Ox 98% on R/A; Pain 0/10; ed1 20:32 BP 99 / 70; Pulse 85; Resp 23; Pulse Ox 98% on R/A; ed1 21:00 BP 97 / 76; Pulse 83; Resp 23; Temp 98.9(O); Pulse Ox 99% on R/A; Pain 0/10; ed1 22:08 BP 101 / 71; Pulse 94; Resp 17; Temp 97.8(TE); Pulse Ox 96% on R/A; Pain 0/10; ed1 22:44 BP 98 / 67; Pulse 86; Resp 27; Temp 97.9(TE); Pulse Ox 98% on R/A; Pain 0/10; ed1 16:05 Body Mass Index 30.40 (98.88 kg, 180.34 cm) iw 16:05 . iw 20:08 Dr. Romero notified, new orders received. ed1 ED Course: 15:32 Patient arrived in ED. ag5 15:33 Alexandre Cannon MD is Private Physician. ag5 15:44 Katherin Talley [facility]-C [facility] snw 15:44 Guero Cedillo MD is Attending Physician. snw 15:47 Arias Vick LVN is Primary Nurse. em 16:00 Arm band placed on. em 16:05 Triage completed. iw 16:25 Patient tolerated well. 3-way catheter Returned cloudy urine. bloody urine. iw 16:27 Urine collected: Duncan catheter specimen, michael colored, Amount Returned: 240mL. mh5 16:28 Patient has correct armband on for positive identification. Placed in gown. Bed in low mh5 position. Call light in reach. Side rails up X2. Adult w/ patient. Warm blanket given. Pulse ox on. NIBP on. 17:25 Ultrasound completed. Patient tolerated well. Notified GRIEF COUNSELOR/YOVANNY carrasco. sg3 17:25 US Rp Exam Complete In Process Unspecified. EDMS 17:45 Lab(s) recollected, by ED staff, sent to lab. iw 19:08 Primary Nurse role handed off by Arias Vick LVN ed1 19:08 Meme Mendoza, RN is Primary Nurse. ed1 19:26 Alexandre Cannon MD is Hospitalizing Provider. snw 19:27 Tammie Valenzuela MD is Hospitalizing Provider. snw 20:31 No provider procedures requiring assistance completed. Patient admitted, IV remains in ed1 place. intact, No redness/swelling at site. Administered Medications: 17:22 Drug: Cipro 500 mg Route: PO; em 19:29 Follow up: Response: No adverse reaction ed1 18:24 Drug: NS 0.9% 1000 ml Route: IV; Rate: 75 ml/hr; Site: right jugular; iw 19:38 Follow up: Rate change 100 ml/hr ed1 22:52 Follow up: IV Status: Infusion continued upon admission ed1 18:38 Not Given (Physician Discretion): fentaNYL (PF) 50 mcg IVP once em 18:53 Drug: Tylenol 1000 mg Route: PO; em 21:01 Follow up: Response: No adverse reaction; Temperature is decreased ed1 19:00 Drug: NS 0.9% 250 ml Route: IV; Rate: bolus; Site: right jugular; ed1 19:40 Follow up: IV Status: Completed infusion; IV Intake: 250ml ed1 20:08 Drug: NS 0.9% 500 ml Route: IV; Rate: bolus; Site: right jugular; ed1 21:01 Follow up: IV Status: Completed infusion; IV Intake: 500ml ed1 Intake: 19:40 IV: 250ml; Total: 250ml. ed1 21:01 IV: 500ml; Total: 750ml. ed1 Output: 16:31 Urine: 1300ml (Duncan); Total: 1300ml. iw 22:40 Urine: 800ml (Duncan); Total: 2100ml. ed1 Outcome: 19:30 Decision to Hospitalize by Provider. snw 22:40 Admitted to Med/surg accompanied by tech, via stretcher, room 221, with chart, Report ed1 called to LINDY Farnsworth 22:40 Condition: stable 22:40 Discharge instructions given to patient, family, Instructed on the need for admit, Demonstrated understanding of instructions. 22:51 Patient left the ED. ed1 Signatures: Dispatcher [employer] EDMS Katherin Talley, GISELA-C CLOTH DYE RANGE OPERATOR-Csnw Arias Vick, POSTAL TRANSPORTATION CLERK POSTAL TRANSPORTATION CLERK em Danielle Galan RN RN iw Riggs, Erika RN RN ed1 Leni Olmos 5 [place], [place] mt Isaac, Deborah sg3 Leisa Tran 5 Corrections: (The following items were deleted from the chart) 16:30 16:28 BP 139 / 98; Pulse 100bpm; Resp 26bpm; Spontaneous; Pulse Ox 98% RA; Temp 98.6F iw Temporal; iw 16:30 16:28 BP 139 / 98; Pulse 100bpm; Resp 22bpm; Spontaneous; Pulse Ox 98% RA; Temp 98.6F iw Temporal; iw 19:40 16:05 BP 179 / 116; Pulse 110bpm; Resp 30bpm; Spontaneous; Pulse Ox 96% RA; Pain 10/10; iw .; iw 19:41 16:10 Reassessment: Patient appears in no apparent distress at this time. I agree with iw above assessment by Arias Vick LVN iw 22:43 21:07 Reassessment: [place] [phone]; [place] [phone] ed1 ed1
--- NOTE | 2019-01-03 19:32 | EDPHYS ---
Physician Documentation [facility] Name: Francheska Bolaños Jr Age: 63 yrs Sex: Male : 1955 Arrival Date: 01/03/2019 Time: 15:32 Bed 19 Private MD: Alexandre Cannon V ED Physician Guero Cedillo HPI: 01/03 19:22 This 63 yrs old Black Male presents to ER via Wheelchair with complaints of Problem snw With Urinary Catheter. 19:22 The patient presents with a Duncan catheter problem, is not draining. Onset: The snw symptoms/episode began/occurred gradually, 3 day(s) ago, and became persistent. Associated signs and symptoms: Pertinent positives: abdominal pain. Severity of symptoms: At their worst the symptoms were severe, earlier today. The patient has not experienced similar symptoms in the past. Historical: - Allergies: 16:26 No Known Allergies; iw - Home Meds: 16:28 aspirin 81 mg Oral TbEC 1 tab once daily [Active]; losartan 100 mg oral tab 1 tab once iw daily [Active]; carvedilol 3.125 mg oral tab 1 tab 2 times per day [Active]; atorvastatin 20 mg oral tab 1 tab once daily [Active]; cephalexin 500 mg Oral cap daily [Active]; levetiracetam 1,000 mg oral tab 1 tab every 12 hours [Active]; - PMHx: 16:28 CVA; High Cholesterol; Hypertension; GERD; Seizures; iw - PSHx: 16:28 RICARDA hip replacement; Leg stents; Loop recorder; iw - Immunization history:: Adult Immunizations unknown. - Social history:: Smoking status: unknown. - Ebola Screening: : Patient negative for fever greater than or equal to 101.5 degrees Fahrenheit, and additional compatible Ebola Virus Disease symptoms Patient denies exposure to infectious person Patient denies travel to an Ebola-affected area in the 21 days before illness onset No symptoms or risks identified at this time. ROS: 19:21 Constitutional: Negative for fever, chills, and weight loss, Eyes: Negative for injury, snw pain, redness, and discharge, ENT: Negative for injury, pain, and discharge, Neck: Negative for injury, pain, and swelling, Cardiovascular: Negative for chest pain, palpitations, and edema, Respiratory: Negative for shortness of breath, cough, wheezing, and pleuritic chest pain, Abdomen/GI: Negative for abdominal pain, nausea, vomiting, diarrhea, and constipation, Back: Negative for injury and pain, MS/Extremity: Negative for injury and deformity, Skin: Negative for injury, rash, and discoloration, Neuro: Negative for headache, weakness, numbness, tingling, and seizure. 19:21 : Positive for small amounts, hematuria. Exam: 19:17 Constitutional: This is a well developed, well nourished patient who is awake, alert, snw and in no acute distress. Head/Face: Normocephalic, atraumatic. Eyes: Pupils equal round and reactive to light, extra-ocular motions intact. Lids and lashes normal. Conjunctiva and sclera are non-icteric and not injected. Cornea within normal limits. Periorbital areas with no swelling, redness, or edema. ENT: Nares patent. No nasal discharge, no septal abnormalities noted. Tympanic membranes are normal and external auditory canals are clear. Oropharynx with no redness, swelling, or masses, exudates, or evidence of obstruction, uvula midline. Mucous membranes moist. Neck: Trachea midline, no thyromegaly or masses palpated, and no cervical lymphadenopathy. Supple, full range of motion without nuchal rigidity, or vertebral point tenderness. No Meningismus. Chest/axilla: Normal chest wall appearance and motion. Nontender with no deformity. No lesions are appreciated. Cardiovascular: Tachycardic rate and rhythm with a normal S1 and S2. No gallops, murmurs, or rubs. Normal PMI, no JVD. No pulse deficits. Respiratory: Lungs have equal breath sounds bilaterally, clear to auscultation and percussion. No rales, rhonchi or wheezes noted. No increased work of breathing, no retractions or nasal flaring. Abdomen/GI: Distended -tender, with normal bowel sounds. No guarding or rebound. + evidence of tenderness throughout. +bladder scanner of 850ml in bladder Back: No spinal tenderness. No costovertebral tenderness. Full range of motion. Male : Normal genitalia with no discharge or lesions. Cath in place without urine. Changed in ED to three way, large clot expressed with removal and cath placed with return of watermelon colored urine. Skin: Warm, dry with normal turgor. Normal color with no rashes, no lesions, and no evidence of cellulitis. MS/ Extremity: Pulses equal, no cyanosis. Neurovascular intact. Full, normal range of motion. Neuro: Awake, slow to respond, GCS 15, oriented to person, place, time. S/p CVA, able to swallow but has a g-tube, has been having urinary retention and was intermittently being cathed for urine output. Vital Signs: 16:05 BP 179 / 116; Pulse 110; Resp 30 S; Pulse Ox 96% on R/A; Weight 98.88 kg; Height 5 ft. iw 11 in. (180.34 cm); Pain 10/10; 16:28 BP 139 / 98; Pulse 100; Resp 20 S; Temp 98.6(TE); Pulse Ox 98% on R/A; iw 16:29 BP 139 / 98; Pulse 112; Resp 20; Temp 98.6(TE); Pulse Ox 98% on R/A; mh5 17:10 BP 123 / 87; Pulse 111; Resp 16; Pulse Ox 96% on R/A; em 18:36 BP 108 / 88; Pulse 115; Resp 18; Temp 98.3(TE); Pulse Ox 98% on R/A; mh5 18:46 Temp 100.6(O); em 19:36 BP 107 / 61; Pulse 104; Resp 20; Pulse Ox 99% on R/A; mt 20:08 BP 88 / 64; Pulse 95; Resp 28; Temp 99.8; Pulse Ox 98% on R/A; Pain 0/10; ed1 20:32 BP 99 / 70; Pulse 85; Resp 23; Pulse Ox 98% on R/A; ed1 21:00 BP 97 / 76; Pulse 83; Resp 23; Temp 98.9(O); Pulse Ox 99% on R/A; Pain 0/10; ed1 22:08 BP 101 / 71; Pulse 94; Resp 17; Temp 97.8(TE); Pulse Ox 96% on R/A; Pain 0/10; ed1 22:44 BP 98 / 67; Pulse 86; Resp 27; Temp 97.9(TE); Pulse Ox 98% on R/A; Pain 0/10; ed1 16:05 Body Mass Index 30.40 (98.88 kg, 180.34 cm) iw 16:05 . iw 20:08 Dr. Romero notified, new orders received. ed1 MDM: 16:08 Patient medically screened. snw 19:31 Data reviewed: vital signs, nurses notes. Data interpreted: Pulse oximetry: on room air snw is 98 %. Interpretation: normal. Counseling: I had a detailed discussion with the patient and/or guardian regarding: the historical points, exam findings, and any diagnostic results supporting the discharge/admit diagnosis, the presence of at least one elevated blood pressure reading (>120/80) during this emergency department visit, lab results, radiology results, the need for further work-up and treatment in the hospital. Response to treatment: the patient's symptoms have markedly improved after treatment. Physician consultation: Tammie Valenzuela MD was called at 19:32, was contacted at 19:32, regarding admission, to the telemetry unit. 01/03 16:08 Order name: Basic Metabolic Panel snw 01/03 16:08 Order name: CBC with Diff snw 01/03 16:08 Order name: Creatinine for Radiology snw 01/03 16:08 Order name: Hepatic Function snw 01/03 16:08 Order name: Lipase; Complete Time: 18:55 snw 01/03 16:08 Order name: Urine Culture snw 01/03 16:08 Order name: Urine Microscopic Only; Complete Time: 16:57 snw 01/03 16:08 Order name: Blood Culture Adult (2) snw 01/03 16:11 Order name: Basic Metabolic Panel; Complete Time: 18:55 EDMS 01/03 16:11 Order name: CBC with Automated Diff; Complete Time: 19:33 EDMS 01/03 16:11 Order name: Creatinine (Radiology Only); Complete Time: 17:56 EDMS 01/03 16:11 Order name: Liver (Hepatic) Function; Complete Time: 18:55 EDMS 01/03 16:28 Order name: Urine Dipstick--Ancillary (enter results); Complete Time: 21:46 ms 01/03 17:39 Order name: Phosphorus; Complete Time: 18:28 iw 01/03 16:08 Order name: IV Saline Lock; Complete Time: 18:27 snw 01/03 16:08 Order name: Labs collected and sent; Complete Time: 17:04 snw 01/03 16:08 Order name: Duncan-Three way; Complete Time: 16:29 snw 01/03 16:08 Order name: Misc. Order: replace duncan; Complete Time: 16:29 snw 01/03 16:08 Order name: US Rp Exam Complete; Complete Time: 18:10 snw 01/03 17:48 Order name: ABG; Complete Time: 17:56 em 01/03 18:22 Order name: Lactic Dehydrogenase; Complete Time: 18:55 EDMS 01/03 19:29 Order name: CBC Smear Scan; Complete Time: 19:33 EDMS 01/03 16:08 Order name: Urine Dipstick-Ancillary (obtain specimen); Complete Time: 16:29 snw 01/03 19:33 Order name: Misc. Order: please change IVF rate to 100ml/hr; Complete Time: 19:38 snw Administered Medications: 17:22 Drug: Cipro 500 mg Route: PO; em 19:29 Follow up: Response: No adverse reaction ed1 18:24 Drug: NS 0.9% 1000 ml Route: IV; Rate: 75 ml/hr; Site: right jugular; iw 19:38 Follow up: Rate change 100 ml/hr ed1 22:52 Follow up: IV Status: Infusion continued upon admission ed1 18:38 Not Given (Physician Discretion): fentaNYL (PF) 50 mcg IVP once em 18:53 Drug: Tylenol 1000 mg Route: PO; em 21:01 Follow up: Response: No adverse reaction; Temperature is decreased ed1 19:00 Drug: NS 0.9% 250 ml Route: IV; Rate: bolus; Site: right jugular; ed1 19:40 Follow up: IV Status: Completed infusion; IV Intake: 250ml ed1 20:08 Drug: NS 0.9% 500 ml Route: IV; Rate: bolus; Site: right jugular; ed1 21:01 Follow up: IV Status: Completed infusion; IV Intake: 500ml ed1 Disposition: 01/04 12:52 Co-signature as Attending Physician, Guero Cedillo MD. Disposition: 01/03/19 19:30 Hospitalization ordered by Tammie Valenzuela for Inpatient Admission. Preliminary diagnosis are Retention of urine, Renal failure from postobstructive process, catheter malfunction, Dehydration, Urinary tract infection, site not specified. - Bed requested for Telemetry/MedSurg (Inpatient). - Status is Inpatient Admission. ed1 - Condition is Stable. - Problem is new. - Symptoms have improved. UTI on Admission? Yes Signatures: Dispatcher [employer] [facility] Katherin Talley, SCALE ATTENDANT-C SCALE ATTENDANT-Csnw Vick, Arias, HAND PACKER HAND PACKER em Danielle Galan, RN RN Meme Mendoza RN RN ed1 Amanda Mesa RN RN Guero Cedillo MD MD Corrections: (The following items were deleted from the chart) 01/03 18:23 18:00 LACTIC DEHYDROGENASE+C.LAB.BRZ ordered. [facility] EDPR 19:03 18:00 ACUTE HEPATITIS PANEL+R.LAB.BRZ ordered. [facility] 19:54 19:30 Hospitalization Ordered by Tammie Valenzuela MD for Inpatient Admission. Preliminary cg diagnosis is Retention of urine; Renal failure from postobstructive process, catheter malfunction; Dehydration; Urinary tract infection, site not specified. Bed requested for Telemetry/MedSurg (Inpatient). Status is Inpatient Admission. Condition is Stable. Problem is new. Symptoms have improved. UTI on Admission? Yes. sn 22:51 19:54 01/03/2019 19:30 Hospitalization Ordered by Tammie Valenzuela MD for Inpatient ed1 Admission. Preliminary diagnosis is Retention of urine; Renal failure from postobstructive process, catheter malfunction; Dehydration; Urinary tract infection, site not specified. Bed requested for Telemetry/MedSurg (Inpatient). Status is Inpatient Admission. Condition is Stable. Problem is new. Symptoms have improved. UTI on Admission? Yes. cg
--- NOTE | 2019-01-03 20:02 | P.HP ---
Certification for Inpatient Patient admitted to: Inpatient With expected LOS: >2 Midnights Practitioner: I am a practitioner with admitting privileges, knowledge of patient current condition, hospital course, and medical plan of care. Services: Services provided to patient in accordance with Admission requirements found in Title 42 Section 412.3 of the Code of Federal Regulations Patient History Date of Service: 01/03/19 Reason for admission: urinary retention, catheter related UTI, acute renal injury History of Present Illness: Mr Bolaños is a 63 years old male with history of HTN, CVA with residual aphasia and dysphagia, S/P PEG tube placement, BPH, with history of urinary retention, S/P Chronic indwelling catheter placement, who start about 3 days ago with progressive abdominal pain and low urine output. No history of fever or chills. At arrival hi had a bladder scan, showing about 800 cc of urine. His Duncan catheter was removed, it was noted to have a clot obstructing its flow. A new duncan catheter was replaced, then, removing more than 800 ml of urine. Abdominal US shows incomplete bladder distention, with mild right hydronephrosis. Lab work remarkable shows normal WBC, creatinine 5.35, ( previous 1.53). fever 100.6. UA abnormal. Allergies No Known Drug Allergies Allergy (Verified 01/07/17 02:30) Unknown No Allergy (Uncoded 01/07/17 02:30) Unknown No K Allergy (Uncoded 04/05/17 03:20) Unknown No Known Al Allergy (Uncoded 03/17/17 21:00) Unknown No Known Allerg Allergy (Uncoded 01/07/17 02:43) Unknown Home medications list reviewed: Yes Home Medications: Amlodipine [Norvasc*] 10 mg PO DAILY 01/07/17 Atorvastatin Calcium 40 mg PO BEDTIME 01/07/17 Carvedilol 25 mg PO Q12HR 01/07/17 Citalopram [Celexa*] 20 mg PO DAILY 01/07/17 Clopidogrel Bisulfate [Plavix*] 75 mg PO DAILY 01/07/17 Losartan Potassium 100 mg PO DAILY 01/07/17 Memantine HCl 10 mg PO BID 01/07/17 Oxcarbazepine [Trileptal] 300 mg PO BID 01/07/17 Quetiapine [Seroquel*] 25 mg PO BEDTIME 01/07/17 cloNIDine HCl [Clonidine HCl] 0.1 mg PO BID 01/07/17 levETIRAcetam [Levetiracetam] 1,000 mg PO Q12HR 01/07/17 raNITIdine HCl [Ranitidine HCl] 150 mg PO BID 01/07/17 Thiamine HCl [Vitamin B-1] 100 mg PO DAILY 04/05/17 Cephalexin [Keflex] 500 mg PO BID #60 cap 04/09/17 Tamsulosin [Flomax*] 0.4 mg PO BEDTIME #30 cap 04/09/17 - Past Medical/Surgical History Diabetic: No -: CVA -: HTN -: high Cholesterol -: Seizures -: GERD -: Femoral stent - Family History Mother -: Stroke, Kidney disease Notes: On Dialysis - Social History Alcohol use: No CD- Drugs: No Caffeine use: No Place of Residence: Home Review of Systems 10-point ROS is otherwise unremarkable Physical Examination - Physical Exam General: Alert, In no apparent distress HEENT: Atraumatic, PERRLA, Mucous membr. moist/pink, EOMI, Sclerae nonicteric Neck: Supple, 2+ carotid pulse no bruit, No LAD, Without JVD or thyroid abnormality Respiratory: Clear to auscultation bilaterally, Normal air movement Cardiovascular: Regular rate/rhythm, Normal S1 S2 Gastrointestinal: Normal bowel sounds, Other (PEG tube in place) Musculoskeletal: No tenderness Integumentary: No rashes Neurological: Normal tone, Normal affect, Abnormal speech (aphasia) Lymphatics: No axilla or inguinal lymphadenopathy - Studies Laboratory Data (last 24 hrs) 01/03/19 17:45: Phosphorus 2.4 L 01/03/19 17:45: Sodium 146 H, Potassium 4.0, BUN 47 H, Creatinine 4.79 H, Glucose 116 H, Total Bilirubin 1.8 H, AST 34, ALT 23, Alkaline Phosphatase 55, Lipase 59 L 01/03/19 16:45: Creatinine 5.35 H* 01/03/19 16:45: WBC 10.2, Hgb 17.6, Hct 53.1 H, Plt Count 130 L Assessment and Plan - Problems (Diagnosis) (1) History of CVA (cerebrovascular accident) Current Visit: Yes Status: Acute (2) VITALY (acute kidney injury) Onset Date: ~04/05/17 Current Visit: No Status: Acute (3) UTI (urinary tract infection) Onset Date: ~04/05/17 Current Visit: No Status: Acute Qualifiers: Urinary tract infection type: urethritis Qualified Code(s): N34.2 - Other urethritis (4) Urinary retention Current Visit: No Status: Acute (5) Hypertension Onset Date: Unknown Current Visit: No Status: Chronic Qualifiers: Hypertension type: essential hypertension Qualified Code(s): I10 - Essential (primary) hypertension - Plan The patient will be admitted to the hospital due to acute on chronic renal injury secondary to Duncan catheter obstruction, also indwelling catheter induce UTI. Duncan catheter already replaced, and has a good flow. Will continue with aggressive volume replacement, start empiric antibiotic treatment. Urine and blood culture in process. - Advance Directives Does patient have a Living Will: No Does patient have a Durable POA for Healthcare: No - Code Status/Comfort Care Code Status Assessed: Yes Code Status: Full Code
[2019-01-03 21:06] LABS: Urine Blood 3+ (NEG); Urine Glucose NEGATIVE (NEG); Urine Protein 3+ (NEG); Urine Specific Gravity 1.015 (1.005-1.030); Urine pH >8.5 (5.0-7.0)
[2019-01-03] MEDS ORDERED: OXcarbazepine 150 MG TAB PO SCH (23:07)
[2019-01-03] MEDS: QUETIAPINE 25 MG TAB PO SCH (23:07)
[2019-01-03] MEDS ORDERED: ONDANSETRON 4 MG/2 ML VIAL IV PRN (23:07)
[2019-01-04 00:08] VITALS: BMI 30.4
[2019-01-04] MEDS: TAMSULOSIN 0.4 MG SR CAP PO SCH ×2 (00:35→20:53)
[2019-01-04] MEDS: NA CHLORIDE 0.9% 1,000 ML IV SCH ×3 (00:35→16:57)
[2019-01-04] MEDS: QUETIAPINE 25 MG TAB PO SCH (00:35)
[2019-01-04] MEDS: ATORVASTATIN 40 MG TAB PO SCH ×2 (00:35→20:54)
[2019-01-04] MEDS: PIPER/TAZO/NS 2.25gm 2.25 GM/50 ML BAG IVPB SCH ×2 (01:00→09:14)
[2019-01-04] MEDS ORDERED: PIPERACIL/TAZO 2.25 GM VIAL IV ONE (02:01)
[2019-01-04] MEDS: levETIRAcetam 500 MG TAB PO SCH ×3 (02:05→20:53)
[2019-01-04] MEDS ORDERED: NA CHLORIDE 0.9% 100 ML ONE (02:12)
[2019-01-04 05:31] LABS: Absolute Lymphocytes (CBC) 1.6 K/uL (0.7-4.9); Basophils % 0.3 % (0-1.3); Eosinophils % 0.1 % (0-4.4); Hematocrit 44.2 % (39.6-49.0); MPV 10.3 fL (7.6-11.3); Monocytes % 15.7 % (3.3-12.3); RBC Red Blood Cell Count 4.65 M/uL (4.33-5.43)
[2019-01-04 05:55] LABS: Potassium 4.1 mmol/L (3.5-5.1)
--- NOTE | 2019-01-04 10:30 | EKG ---
Test Date: 2019-01-04 Test Time: 04:48:46 Coat Fitter: RT-O MEASUREMENT RESULTS: Intervals: Rate: 84 NH: QRSD: 110 QT: 446 QTc: 527 [place]: P: NH: QRS: -15 T: 224 INTERPRETIVE STATEMENTS: Sinus rhythm with frequent premature atrial complexes Inferior infarct, age undetermined ST & T wave abnormality, consider lateral ischemia Prolonged QT Abnormal ECG Compared to ECG 08/29/2018 15:41:28 Prolonged QT interval now present Myocardial infarct finding still present Electronically Signed On 01-04-19 10:29:50 CDT by You Corrales
[2019-01-04 12:32] LABS: Blood Morphology Comment NOT SEEN (NOT SEEN); Platelet Estimate DECR
[2019-01-04] MEDS: ENOXAPARIN 30 MG/0.3 ML SQ SCH (16:57)
[2019-01-04] MEDS: Meropenem 500 MG in NA CHLORIDE 0.9% 100 ML IV SCH ×2 (16:57→20:54)
--- NOTE | 2019-01-04 17:15 | PN ---
Date of Progress Note: 01/04/2019 Subjective: The patient seen and examined. Chart reviewed and case discussed with RN. The patient is not greatest historian due to his past medical history of cerebrovascular accident. Does not report any complaints. Per nursing staff the patient had Hernandez catheter change in the ER with good urinary output due to catheter exchange due to obstruction. Medications: List reviewed. Code Status: Full. Physical Examination: Vital Signs: Temperature 97.3, heart rate 20, blood pressure 104/65, respirations 18, O2 93% on room air. General: Awake, alert x1. Some mild distress, ill-appearing male. CV: S1, S2. Regular rate and rhythm. Peripheral pulses present. Respiratory: Moving air well bilaterally. No wheezing or stridor. Gastrointestinal: Abdomen is soft, nontender, nondistended. Positive bowel sounds. No guarding or rigidity. Extremities: No clubbing, cyanosis, or edema. Neuro: The patient has minimally abnormal speech, however, it is comprehensible. Laboratory Data: Sodium 142, potassium 4.1, chloride 115, CO2 21, BUN 46, creatinine 3.8, glucose 120, calcium 7.8. WBC 14.4, H and H 14.8 and 44.2, platelets 103, neutrophils 72%. UA is positive. Blood culture is pending. Urine culture greater than 100,000 colony-forming units of gram-negative rods. Assessment And Plan: 1. Acute metabolic encephalopathy, likely due to urinary tract infection. 2. Acute cystitis with hematuria secondary to gram-negative rods. The patient has history of multi drug-resistant Klebsiella. We will switch to meropenem. 3. Acute kidney injury with hydronephrosis. The patient's creatinine is improving. We will follow up with Nephrology recommendations. Continue IV fluid hydration likely secondary to obstruction. 4. Urinary retention. The patient's Hernandez catheter has been changed out, making good urinary output. 5. Essential hypertension. We will resume home medications as appropriate. 6. History of cerebrovascular accident with dysphagia and aphagia. 7. Mixed hyperlipidemia, continue statin. 8. History of seizure disorders. Continue Keppra. 9. Gastroesophageal reflux disease, on ranitidine. 10. Deep vein thrombosis prophylaxis with Lovenox renally dosed. Plan: We will continue to monitor for signs of sepsis. Follow up on urine cultures and blood cultures. ID and sensitivities pending. Continue to monitor kidney function. Dr. Cannon to resume care of the patient in am. /KALLIE Voice ID: [id number] Report ID: [id number] MTDD
[2019-01-04] MEDS: CARVEDILOL 3.125 MG TAB PO SCH (20:54)
[2019-01-04] MEDS ORDERED: Meropenem 500 MG VIAL IV SCH (21:00)
[2019-01-05] MEDS: NA CHLORIDE 0.9% 1,000 ML IV SCH ×4 (00:02→22:30)
[2019-01-05 04:17] LABS: Absolute Lymphocytes (CBC) 1.5 K/uL (0.7-4.9); Basophils % 0.4 % (0-1.3); Eosinophils % 1.5 % (0-4.4); Hematocrit 40.9 % (39.6-49.0); Lymphocytes % 14.7 % (15.3-44.8); MPV 10.9 fL (7.6-11.3); RBC Red Blood Cell Count 4.32 M/uL (4.33-5.43)
[2019-01-05 04:35] LABS: Albumin 2.3 g/dL (3.4-5.0); Bilirubin Total 1.1 mg/dL (0.2-1.0); Magnesium 2.1 mg/dL (1.8-2.4); Potassium 3.9 mmol/L (3.5-5.1); Protein, Total 5.8 g/dL (6.4-8.2)
[2019-01-05] MEDS: levETIRAcetam 500 MG TAB PO SCH ×2 (08:26→20:33)
[2019-01-05] MEDS: LOSARTAN POTASSIUM 50 MG TABLET PO SCH (08:27)
[2019-01-05] MEDS: CARVEDILOL 3.125 MG TAB PO SCH ×2 (08:27→20:33)
[2019-01-05] MEDS: Meropenem 500 MG in NA CHLORIDE 0.9% 100 ML IV SCH ×2 (08:27→20:33)
[2019-01-05] MEDS: ASPIRIN EC 81 MG TAB PO SCH (08:27)
[2019-01-05] MEDS ORDERED: POTASSIUM CL SA 10 MEQ TAB PO ONE (09:00)
[2019-01-05] MEDS ORDERED: HOME MED 1 EA UNK (Losartan Potassium [Losartan Potassium] 100 MG) PO SCH (09:00)
[2019-01-05] MEDS: ACETAMINOPHEN 500 MG TAB PO PRN (12:32)
[2019-01-05] MEDS: ENOXAPARIN 30 MG/0.3 ML SQ SCH (16:35)
[2019-01-05] MEDS: ATORVASTATIN 40 MG TAB PO SCH (20:33)
[2019-01-05] MEDS: TAMSULOSIN 0.4 MG SR CAP PO SCH (20:34)
--- NOTE | 2019-01-05 21:36 | P.PN ---
Subjective Date of Service: 01/05/19 Chief Complaint: urinary retention, catheter related UTI, acute renal injury Subjective: Improving MR. JAEGER LOOKS GOOD AND STABLE. HE DENIES ANY CHEST PAIN. Review of Systems 10-point ROS is otherwise unremarkable General: Weakness, Malaise Physical Examination - Vital Signs Temperature: 98.7 F Blood Pressure: 136/90 Pulse: 76 Respirations: 17 Pulse Ox (%): 96 - Physical Exam General: Alert, In no apparent distress HEENT: Atraumatic, PERRLA, EOMI Neck: Supple, JVD not distended Respiratory: Clear to auscultation bilaterally, Normal air movement Cardiovascular: Regular rate/rhythm, Normal S1 S2 Gastrointestinal: Normal bowel sounds, No tenderness Musculoskeletal: No tenderness Integumentary: No rashes Neurological: Abnormal speech (CHRONIC, UNCHAGED APHASIA SINCE MANY STROKES.) Lymphatics: No axilla or inguinal lymphadenopathy - Studies Microbiology Data (last 24 hrs): 01/03/19 16:35 Blood - Blood Anaerobic Blood Culture - Final 01/03/19 16:50 Blood - Blood Anaerobic Blood Culture - Final Medications List Reviewed: Yes Assessment And Plan - Current Problems (Diagnosis) (1) Obstructed, uropathy Current Visit: Yes Status: Acute Plan: MARY CLOGGED. HE HAD OB UROPATHY. HE IS ALMOST BACK TO HIS BASELINE. I AM NOT SURE ABOUT INFECTION. ALL CATHETERIZED PATIENTS WILL COLONISE WITH BACTERI. I WILL BE MORE SPECIFIC WITH LOWER SPECTRUM ABX LIKE CIPRO. (2) CVA (cerebral vascular accident) Onset Date: Unknown Current Visit: No Status: Chronic Plan: OLD, NO CHANGES. SEIZURES BY HISTORY. Qualifiers: CVA mechanism: embolism Precerebral and cerebral artery: unspecified precerebral artery Qualified Code(s): I63.10 - Cerebral infarction due to embolism of unspecified precerebral artery
--- NOTE | 2019-01-05 22:44 | P.CNS ---
Date of Consult: 01/05/19 Reason for Consult: VITALY Requesting Physician: Alexandre Cannon V Chief Complaint: urinary retention, catheter related UTI, acute renal injury History of Present Illness: Mr Bolaños is a 63 years old male with history of HTN, CVA with residual aphasia and dysphagia, S/P PEG tube placement, BPH, with history of urinary retention, S/P Chronic indwelling catheter placement, who start about 3 days ago with progressive abdominal pain and low urine output. No history of fever or chills. At arrival hi had a bladder scan, showing about 800 cc of urine. His Duncan catheter was removed, it was noted to have a clot obstructing its flow. A new duncan catheter was replaced, then, removing more than 800 ml of urine. Abdominal US shows incomplete bladder distention, with mild right hydronephrosis. Lab work remarkable shows normal WBC, creatinine 5.35, ( previous 1.53). fever 100.6. UA abnormal. 19:22 This 63 yrs old Black Male presents to ER via Wheelchair with complaints of Problem snw With Urinary Catheter. 19:22 The patient presents with a Duncan catheter problem, is not draining. Onset : The snw symptoms/episode began/occurred gradually, 3 day(s) ago, and became persistent. Associated signs and symptoms: Pertinent positives: abdominal pain. Severity of symptoms: At their worst the symptoms were severe, earlier today. The patient has not experienced similar symptoms in the past. Allergies No Known Drug Allergies Allergy (Verified 01/07/17 02:30) Unknown No Allergy (Uncoded 01/07/17 02:30) Unknown No K Allergy (Uncoded 04/05/17 03:20) Unknown No Known Al Allergy (Uncoded 03/17/17 21:00) Unknown No Known Allerg Allergy (Uncoded 01/07/17 02:43) Unknown Home medications list reviewed: Yes Home Medications: Atorvastatin Calcium 20 mg PO BEDTIME 01/07/17 Losartan Potassium 100 mg PO DAILY 01/07/17 levETIRAcetam [Levetiracetam] 1,000 mg PO Q12HR 01/07/17 Cephalexin [Keflex] 500 mg PO BID #60 cap 04/09/17 Aspirin [Aspirin EC 81 MG] 1 tab PO DAILY 01/04/19 Carvedilol 1 tab PO BID 01/04/19 - Past Medical/Surgical History Diabetic: No -: CVA -: HTN -: high Cholesterol -: Seizures -: GERD -: Femoral stent -: peg tube placement - Family History Mother Medical History: Stroke, Kidney disease Notes: On Dialysis - Social History Smoking Status: Unknown if ever smoked Alcohol use: No CD- Drugs: No Caffeine use: No Place of Residence: Home Review of Systems 10-point ROS is otherwise unremarkable General: Weakness, Malaise Neurological: Weakness, Change in Speech Physical Examination Temp Pulse Resp BP Pulse Ox 98.7 F 76 17 136/90 96 01/05/19 21:38 01/05/19 21:38 01/05/19 21:38 01/05/19 21:38 01/05/19 21:38 General: In no apparent distress, Oriented x3, Cooperative HEENT: Atraumatic, Mucous membr. moist/pink Neck: Supple Respiratory: Clear to auscultation bilaterally Cardiovascular: No edema, Regular rate/rhythm Gastrointestinal: Soft and benign, Non-distended Musculoskeletal: No clubbing, No contractures Integumentary: No rashes, No cyanosis Neurological: Abnormal speech Blood work reviewed in the chart. Cr 5.35 Imagings Data: EXAM DESCRIPTION: US - Renal Ultrasound-Complete - 01/03/2019 5:25 pm CLINICAL HISTORY: blocked duncan;Pain Flank pain COMPARISON: Abdomen Pelvis Wo Contrast dated 07/22/2018 FINDINGS: Both kidneys are normal in size, shape and echotexture. The right kidney measures 10.7 x 5.6 x 5.3 cm. Mild right hydronephrosis. Small benign right renal cysts. The left kidney measures 10.5 x 4.5 x 4.5 cm. No hydronephrosis, focal mass or perinephric fluid. The urinary bladder is incompletely distended without gross abnormality seen. IMPRESSION: Mild right hydronephrosis. Conclusions/Impression: A/ VITALY due to obstructive uropathy sp duncan. Hypernatremia. CKD III with proteinuria. Hypocalcemia. HypoPO4. Thrombocytopenia. Moderate malnutrition. Proteus Bacteremia/ Sepsis. Acute/ Chronic cystitis, Morganella & Entercoccus. P/ Continue current POC and Medications. Agree with duncan. Follow up with urology. Agree with Abx. Replete potassium as needed. No NSAIDs. AM labs. Daily weight. Thank you kindly for the consultation.
[2019-01-06] MEDS: NA CHLORIDE 0.9% 1,000 ML IV SCH ×2 (05:12→18:00)
[2019-01-06 06:29] LABS: Potassium 3.8 mmol/L (3.5-5.1)
[2019-01-06] MEDS ORDERED: CIPROFLOXACIN HCL 250 MG TAB PO SCH (09:00)
[2019-01-06] MEDS ORDERED: POTASSIUM CL SA 10 MEQ TAB PO ONE (09:00)
[2019-01-06] MEDS: ASPIRIN EC 81 MG TAB PO SCH (09:25)
[2019-01-06] MEDS: CARVEDILOL 3.125 MG TAB PO SCH ×2 (09:25→21:43)
[2019-01-06] MEDS: levETIRAcetam 500 MG TAB PO SCH ×2 (09:25→21:43)
[2019-01-06] MEDS: LOSARTAN POTASSIUM 50 MG TABLET PO SCH (09:26)
[2019-01-06] MEDS: Meropenem 500 MG in NA CHLORIDE 0.9% 100 ML IV SCH ×2 (09:26→21:43)
[2019-01-06] MEDS: ENOXAPARIN 30 MG/0.3 ML SQ SCH (19:41)
--- NOTE | 2019-01-06 21:32 | P.PN ---
Subjective Date of Service: 01/06/19 Chief Complaint: urinary retention, catheter related UTI, acute renal injury Subjective: Improving MR. JAEGER LOOKS GOOD AND STABLE. HE DENIES ANY CHEST PAIN. HE HAS NO NEW ISSUES. HE HAS HAD MANY STROKES IN THE PAST. Review of Systems 10-point ROS is otherwise unremarkable General: Weakness Physical Examination - Vital Signs Temperature: 98.4 F Blood Pressure: 139/96 Pulse: 72 Respirations: 16 Pulse Ox (%): 98 - Physical Exam General: Alert, In no apparent distress HEENT: Atraumatic, PERRLA, EOMI Neck: Supple, JVD not distended Respiratory: Clear to auscultation bilaterally, Normal air movement Cardiovascular: Regular rate/rhythm, Normal S1 S2 Gastrointestinal: Normal bowel sounds, No tenderness Musculoskeletal: No tenderness Integumentary: No rashes Neurological: Abnormal speech (UNCHANGE.) Lymphatics: No axilla or inguinal lymphadenopathy - Studies Microbiology Data (last 24 hrs): 01/03/19 16:25 Catheterized Urine [place] Count - Final >100,000 CFU/ML. 01/03/19 16:25 Catheterized Urine - Final Morganella Morganii Enterococcus Faecalis 01/03/19 16:50 Blood - Blood Aerobic Blood Culture - Final Proteus Mirabilis Esbl 01/03/19 16:50 Blood - Blood Gram Stain - Final 01/03/19 16:50 Blood - Blood Anaerobic Blood Culture - Final 01/03/19 16:35 Blood - Blood Aerobic Blood Culture - Final Proteus Mirabilis Esbl 01/03/19 16:35 Blood - Blood Gram Stain - Final 01/03/19 16:35 Blood - Blood Anaerobic Blood Culture - Final Medications List Reviewed: Yes Assessment And Plan - Current Problems (Diagnosis) (1) Obstructed, uropathy Current Visit: Yes Status: Acute Plan: MARY CLOGGED. HE HAD OB UROPATHY. HE IS ALMOST BACK TO HIS BASELINE. I AM NOT SURE ABOUT INFECTION. ALL CATHETERIZED PATIENTS WILL COLONISE WITH BACTERI. I WILL BE MORE SPECIFIC WITH LOWER SPECTRUM ABX LIKE CIPRO. (2) CVA (cerebral vascular accident) Onset Date: Unknown Current Visit: No Status: Chronic Plan: OLD, NO CHANGES. SEIZURES BY HISTORY. Qualifiers: CVA mechanism: embolism Precerebral and cerebral artery: unspecified precerebral artery Qualified Code(s): I63.10 - Cerebral infarction due to embolism of unspecified precerebral artery (3) Proteus septicemia Current Visit: Yes Status: Acute Plan: IT IS UNCLEAR ABOUT THE SOURCE OF THIS BACTERIA. HIS URINE DOES NOT GROW THIS ONE. I WILL ORDER CT CHEST ABDOMEN AND PELVIS TO FIND A GRAM NEGATIVE SOURCE. ALSO ECHO. ORDER PICC LINE AND 2 WEEKS OF TOTAL ABX.
[2019-01-06] MEDS: ATORVASTATIN 40 MG TAB PO SCH (21:43)
[2019-01-06] MEDS: TAMSULOSIN 0.4 MG SR CAP PO SCH (21:43)
--- NOTE | 2019-01-06 22:39 | P.PN ---
Date of Service: 01/06/19 Vital Signs Temp Pulse Resp BP Pulse Ox 98.4 F 80 16 133/87 98 01/06/19 21:32 01/06/19 21:43 01/06/19 21:32 01/06/19 21:43 01/06/19 21:32 Medications Acetaminophen (Tylenol -Extra Strength) 500 mg PO Q4HP PRN PRN Reason: TEMP > 100' F Stop: 02/02/19 23:08 Last Admin: 01/05/19 12:32 Dose: 500 mg Aspirin (Aspirin Ec) 81 mg PO DAILY YO Stop: 02/04/19 09:01 Last Admin: 01/06/19 09:25 Dose: 81 mg Atorvastatin Calcium (Lipitor) 40 mg PO BEDTIME YO Stop: 02/02/19 23:08 Last Admin: 01/06/19 21:43 Dose: 40 mg Carvedilol (Coreg) 3.125 mg PO BID YO Stop: 02/03/19 21:01 Last Admin: 01/06/19 21:43 Dose: 3.125 mg Enoxaparin Sodium (Lovenox 30 Mg Inj) 30 mg SQ DAILY 5 PM YO Stop: 02/03/19 17:01 Last Admin: 01/06/19 19:41 Dose: 30 mg Sodium Chloride (Ns 1000 Ml Ivbag) 1,000 mls @ 50 mls/hr IV .Q20H YO Stop: 02/04/19 22:01 Last Admin: 01/06/19 05:12 Dose: 1,000 mls Meropenem 500 mg/ Sodium (Chloride) 100 mls @ 100 mls/hr IV Q12HR YO Stop: 02/05/19 09:01 Last Admin: 01/06/19 21:43 Dose: 100 mls Levetiracetam (Keppra Tab) 1,000 mg PO Q12HR YO Stop: 02/03/19 09:01 Last Admin: 01/06/19 21:43 Dose: 1,000 mg Losartan Potassium (Cozaar) 100 mg PO DAILY YO Stop: 02/04/19 09:01 Last Admin: 01/06/19 09:26 Dose: 100 mg Ondansetron HCl (Zofran) 4 mg IV Q6HP PRN PRN Reason: NAUSEA / VOMITING Stop: 02/02/19 23:08 Sodium Chloride (Normal Saline Flush) 10 ml IV BID YO Stop: 02/02/19 23:08 Last Admin: 01/06/19 21:00 Dose: Not Given Tamsulosin HCl (Flomax) 0.4 mg PO BEDTIME YO Stop: 02/02/19 23:08 Last Admin: 01/06/19 21:43 Dose: 0.4 mg Microbiology Results 01/03/19 16:25 Catheterized Urine [place] Count - Final >100,000 CFU/ML. 01/03/19 16:25 Catheterized Urine - Final Morganella Morganii Enterococcus Faecalis 01/03/19 16:50 Blood - Blood Aerobic Blood Culture - Final Proteus Mirabilis Esbl 01/03/19 16:50 Blood - Blood Gram Stain - Final 01/03/19 16:50 Blood - Blood Anaerobic Blood Culture - Final 01/03/19 16:35 Blood - Blood Aerobic Blood Culture - Final Proteus Mirabilis Esbl 01/03/19 16:35 Blood - Blood Gram Stain - Final 01/03/19 16:35 Blood - Blood Anaerobic Blood Culture - Final Assessment/ Plan: Nephrology. Feeling better today. CPS improved without CP or SOB. No acute events overnight. Case discussed with his . Vitals, medications, blood work and imaging reviewed in the chart. General: In no apparent distress, Oriented x3, Cooperative HEENT: Atraumatic, Mucous membr. moist/pink Neck: Supple Respiratory: Clear to auscultation bilaterally Cardiovascular: No edema, Regular rate/rhythm Gastrointestinal: Soft and benign, Non-distended Musculoskeletal: No clubbing, No contractures Integumentary: No rashes, No cyanosis Neurological: Abnormal speech Blood work reviewed in the chart. Cr 5.35 Imagings Data: EXAM DESCRIPTION: US - Renal Ultrasound-Complete - 01/03/2019 5:25 pm CLINICAL HISTORY: blocked duncan;Pain Flank pain COMPARISON: Abdomen Pelvis Wo Contrast dated 07/22/2018 FINDINGS: Both kidneys are normal in size, shape and echotexture. The right kidney measures 10.7 x 5.6 x 5.3 cm. Mild right hydronephrosis. Small benign right renal cysts. The left kidney measures 10.5 x 4.5 x 4.5 cm. No hydronephrosis, focal mass or perinephric fluid. The urinary bladder is incompletely distended without gross abnormality seen. IMPRESSION: Mild right hydronephrosis. Conclusions/Impression: A/ VITALY due to obstructive uropathy sp duncan. Hypernatremia. CKD III with proteinuria. Hypocalcemia. HypoPO4. Thrombocytopenia. Moderate malnutrition. CVD. Hx CVA. Proteus Bacteremia/ Sepsis. Acute/ Chronic cystitis, Morganella & Entercoccus. P/ Continue current POC and Medications. Agree with duncan. Follow up with urology. Agree with Abx. Encourage nutrition. No NSAIDs. AM labs. Daily weight. Plan for CT scan.
[2019-01-07] MEDS: ACETAMINOPHEN 500 MG TAB PO PRN ×3 (00:29→17:04)
[2019-01-07] MEDS: NA CHLORIDE 0.9% 1,000 ML IV SCH ×2 (00:30→14:00)
[2019-01-07 05:57] LABS: Absolute Lymphocytes (CBC) 1.8 K/uL (0.7-4.9); Basophils % 0.6 % (0-1.3); Eosinophils % 2.2 % (0-4.4); Hematocrit 41.4 % (39.6-49.0); Lymphocytes % 18.5 % (15.3-44.8); MPV 9.9 fL (7.6-11.3); Monocytes % 12.4 % (3.3-12.3)
[2019-01-07 06:05] LABS: Urine Appearance CLEAR; Urine Bilirubin NEGATIVE (NEG); Urine Blood 3+ (NEG); Urine Color YELLOW; Urine Glucose NEGATIVE (NEG); Urine Protein NEGATIVE (NEG)
[2019-01-07 06:08] LABS: UR MICROALBUMIN 5.7 mg/dL (< 1.9); Urine Culture Reflex Order NOT NEEDED; Urine Volume 1 ML
[2019-01-07 06:09] LABS: Urine Bacteria <20 /HPF (NONE SEEN)
[2019-01-07 06:12] LABS: Phosphorus 3.2 mg/dL (2.5-4.9); Potassium 3.9 mmol/L (3.5-5.1); Uric Acid 3.9 mg/dL (3.5-7.2)
[2019-01-07] MEDS ORDERED: POTASSIUM CL SA 10 MEQ TAB PO ONE (09:00)
[2019-01-07] MEDS: ASPIRIN EC 81 MG TAB PO SCH (09:35)
[2019-01-07] MEDS: CALCITROL 0.25 MCG CAP PO SCH (09:35)
[2019-01-07] MEDS: levETIRAcetam 500 MG TAB PO SCH ×2 (09:35→21:18)
[2019-01-07] MEDS: Meropenem 500 MG in NA CHLORIDE 0.9% 100 ML IV SCH ×2 (09:36→21:18)
[2019-01-07] MEDS: CARVEDILOL 3.125 MG TAB PO SCH ×2 (09:36→21:19)
[2019-01-07] MEDS: LOSARTAN POTASSIUM 50 MG TABLET PO SCH (09:36)
[2019-01-07] MEDS: VITAMIN D 5,000 UNIT CAP PO SCH (09:37)
--- NOTE | 2019-01-07 10:50 | RAD REPORT ---
EXAM DESCRIPTION: CT - Chest Abdomen Pelvis W Cont - 01/07/2019 9:30 am CLINICAL HISTORY: Chest and abdomen pain. UNCLEAR SOURCE OF PROTEUS COMPARISON: Abdomen Pelvis Wo Contrast dated 07/22/2018; Abdomen Pelvis Wo Contrast dated 7 TECHNIQUE: Approximately 100 mL nonionic IV contrast was administered to the patient. All CT scans are performed using dose optimization technique as appropriate and may include automated exposure control or mA/KV adjustment according to patient size. FINDINGS: Mild linear subsegmental atelectasis is seen in both posterior lung bases.No focal pulmona ry nodule, mass or infiltrate.No pleural or pericardial effusion.Mild bilateral pleural thickening.No intrathoracic adenopathy. The liver, spleen, pancreas, adrenal glands and kidneys are within normal limits. 14 mm cyst is prese nt mid-pole right kidney. No bowel obstruction, free air, free fluid or abscess. Normal appendix. No pathologic lymphadenopath y in the abdomen or pelvis. Urinary bladder is decompressed by means of a Hernandez catheter with air wit hin the urinary bladder. Sclerotic changes with small erosions noted involving both sacroiliac joints suggesting sacroiliitis. No lytic or blastic bone lesion. IMPRESSION: Mild bilateral sacroiliitis is suspected. Elsewhere, no pathologic finding discerned.
--- NOTE | 2019-01-07 11:38 | RAD REPORT ---
EXAM DESCRIPTION: XR Chest, 1 View CLINICAL HISTORY: The patient is 63 years old and is Male; picc line placement TECHNIQUE: Frontal view of the chest. COMPARISON: No relevant prior studies available. FINDINGS: LUNGS: There are low lung volumes. No lobar consolidation. PLEURAL SPACE: Unremarkable. No pneumothorax. HEART: Unremarkable. No cardiomegaly. MEDIASTINUM: Unremarkable. BONES/JOINTS: Unremarkable. TUBES, LINES AND DEVICES: A right upper extremity PICC is present with the tip at the superior a spect of the SVC. A loop recorder is noted. IMPRESSION: A right upper extremity PICC is present with the tip at the superior aspect of the SVC. Electronically signed by: Whit Alcala MD 01/07/2019 12:37 AM CDT Due to temporary technical issues with the PACS/Fluency reporting system, reports are being signed by the in house radiologist as a courtesy to ensure prompt reporting. The interpreting radiologist is f ully responsible for the content of the report.
--- NOTE | 2019-01-07 12:57 | ECHO ---
HEIGHT: 5 ft 11 in WEIGHT: 217 lb 13.067 oz DATE OF STUDY: 01/07/[address]: Alexandre Cannon MD 2-DIMENSIONAL: YES M.MODE: YES DOPPLER: YES COLOR FLOW: YES TDS: NO PORTABLE: NO DEFINITY: NO BUBBLE STUDY: NO DIAGNOSIS: SEPTICEMIA SOURCE CARDIAC HISTORY: CATHERIZATION: NO SURGERY: NO PROSTHETIC VALVE: NO PACEMAKER: NO MEASUREMENTS (cm) DIASTOLIC (NORMALS) SYSTOLIC (NORMALS) IVSd 1.0 (0.6-1.2) LA Diam 3.4 (1.9-4.0) LVEF 50-55% LVIDd 5.1 (3.5-5.7) LVIDs 4.1 (2.0-3.5) %FS 19% LVPWd 1.1 (0.6-1.2) Ao Diam 2.9 (2.0-3.7) 2 DIMENSIONAL ASSESSMENT: RIGHT ATRIUM: NORMAL LEFT ATRIUM: NORMAL RIGHT VENTRICLE: NORMAL LEFT VENTRICLE: NORMAL TRICUSPID VALVE: NORMAL MITRAL VALVE: NORMAL PULMONIC VALVE: NORMAL AORTIC VALVE: NORMAL PERICARDIAL EFFUSION: NONE AORTIC ROOT: NORMAL LEFT VENTRICULAR WALL MOTION: HYPOKINESIS OF POSTERO BASAL SEGMENT. DOPPLER/COLOR FLOW: MILD MITRAL AND TRICUSPID REGURGITATION. RIGHT VENTRICULAR SYSTOLIC PRESSURE. COMMENTS: NORMAL LEFT VENTRICULAR EJECTION FRACTION WITH WALL MOTION ABNORMALITY. MILD MITRAL AND TRICUSPID REGURGITATION. TECHNOLOGIST: SIDDHARTH BOBBY
[2019-01-07] MEDS: ENOXAPARIN 30 MG/0.3 ML SQ SCH (17:04)
[2019-01-07] MEDS: ATORVASTATIN 40 MG TAB PO SCH (21:18)
[2019-01-07] MEDS: TAMSULOSIN 0.4 MG SR CAP PO SCH (21:18)
--- NOTE | 2019-01-07 21:24 | P.PN ---
Subjective Date of Service: 01/07/19 Chief Complaint: urinary retention, catheter related UTI, acute renal injury Subjective: Improving MR. JAEGER LOOKS GOOD AND STABLE. HE DENIES ANY CHEST PAIN. HE HAS NO NEW ISSUES. HE HAS HAD MANY STROKES IN THE PAST. HE IS LAYING IN BED , HAS NO CMPLAINTS. Review of Systems 10-point ROS is otherwise unremarkable General: Weakness, Malaise Physical Examination - Vital Signs Temperature: 99.8 F Blood Pressure: 133/81 Pulse: 75 Respirations: 20 Pulse Ox (%): 97 - Physical Exam General: In no apparent distress HEENT: Atraumatic, PERRLA, EOMI Neck: Supple, JVD not distended Respiratory: Clear to auscultation bilaterally, Normal air movement Cardiovascular: Regular rate/rhythm, Normal S1 S2 Gastrointestinal: Normal bowel sounds, No tenderness Musculoskeletal: No tenderness Integumentary: No rashes Neurological: Other (NEURO DEFICITS AT BASELINE.) Lymphatics: No axilla or inguinal lymphadenopathy - Studies Medications List Reviewed: Yes Assessment And Plan - Current Problems (Diagnosis) (1) Obstructed, uropathy Current Visit: Yes Status: Acute Plan: MARY CLOGGED. HE HAD OB UROPATHY. HE IS ALMOST BACK TO HIS BASELINE. I AM NOT SURE ABOUT INFECTION. ALL CATHETERIZED PATIENTS WILL COLONISE WITH BACTERI. I WILL BE MORE SPECIFIC WITH LOWER SPECTRUM ABX LIKE CIPRO. (2) CVA (cerebral vascular accident) Onset Date: Unknown Current Visit: No Status: Chronic Plan: OLD, NO CHANGES. SEIZURES BY HISTORY. Qualifiers: CVA mechanism: embolism Precerebral and cerebral artery: unspecified precerebral artery Qualified Code(s): I63.10 - Cerebral infarction due to embolism of unspecified precerebral artery (3) Proteus septicemia Current Visit: Yes Status: Acute Plan: IT IS UNCLEAR ABOUT THE SOURCE OF THIS BACTERIA. HIS URINE DOES NOT GROW THIS ONE. I WILL ORDER CT CHEST ABDOMEN AND PELVIS TO FIND A GRAM NEGATIVE SOURCE. ALSO ECHO. ORDER PICC LINE AND 2 WEEKS OF TOTAL ABX. THIS AM I HAD LEFT A MESSAGE TO CALL ME IF ABX AT HOME OR NH HAVE BEEN APPROVED. I DID NOTGET A CALL FROM NURSE. LOOKING AT NOTES HE CAN HAVE ABX AT HOME. CT SCANS SHOW NO SIGNS OF ORIGIN OF SEPSIS. MOST LIKELY THIS BACTERIA CAN COME FROM URINE BUT URINE CULTURE DOES NOT SHOW THE SAME BACTERIA.
--- NOTE | 2019-01-07 22:13 | P.PN ---
Date of Service: 01/07/19 Vital Signs Temp Pulse Resp BP Pulse Ox 99.8 F 75 20 133/81 97 01/07/19 21:24 01/07/19 21:24 01/07/19 21:24 01/07/19 21:24 01/07/19 21:24 Medications Acetaminophen (Tylenol -Extra Strength) 500 mg PO Q4HP PRN PRN Reason: TEMP > 100' F Stop: 02/02/19 23:08 Last Admin: 01/07/19 17:04 Dose: 500 mg Aspirin (Aspirin Ec) 81 mg PO DAILY YO Stop: 02/04/19 09:01 Last Admin: 01/07/19 09:35 Dose: 81 mg Atorvastatin Calcium (Lipitor) 40 mg PO BEDTIME YO Stop: 02/02/19 23:08 Last Admin: 01/07/19 21:18 Dose: 40 mg Calcitriol (Rocaltrol) 0.5 mcg PO DAILY YO Stop: 02/06/19 09:01 Last Admin: 01/07/19 09:35 Dose: 0.5 mcg Carvedilol (Coreg) 3.125 mg PO BID YO Stop: 02/03/19 21:01 Last Admin: 01/07/19 21:19 Dose: 3.125 mg Cholecalciferol (Vitamin D 5,000 Iu Cap) 5,000 unit PO DAILY YO Stop: 02/06/19 09:01 Last Admin: 01/07/19 09:37 Dose: 5,000 unit Enoxaparin Sodium (Lovenox 30 Mg Inj) 30 mg SQ DAILY 5 PM YO Stop: 02/03/19 17:01 Last Admin: 01/07/19 17:04 Dose: 30 mg Sodium Chloride (Ns 1000 Ml Ivbag) 1,000 mls @ 50 mls/hr IV .Q20H YO Stop: 02/04/19 22:01 Last Admin: 01/07/19 00:30 Dose: 1,000 mls Meropenem 500 mg/ Sodium (Chloride) 100 mls @ 100 mls/hr IV Q12HR YO Stop: 02/05/19 09:01 Last Admin: 01/07/19 21:18 Dose: 100 mls Levetiracetam (Keppra Tab) 1,000 mg PO Q12HR YO Stop: 02/03/19 09:01 Last Admin: 01/07/19 21:18 Dose: 1,000 mg Losartan Potassium (Cozaar) 100 mg PO DAILY YO Stop: 02/04/19 09:01 Last Admin: 01/07/19 09:36 Dose: 100 mg Ondansetron HCl (Zofran) 4 mg IV Q6HP PRN PRN Reason: NAUSEA / VOMITING Stop: 02/02/19 23:08 Sodium Chloride (Normal Saline Flush) 10 ml IV BID YO Stop: 02/02/19 23:08 Last Admin: 01/07/19 21:19 Dose: 10 ml Tamsulosin HCl (Flomax) 0.4 mg PO BEDTIME YO Stop: 02/02/19 23:08 Last Admin: 01/07/19 21:18 Dose: 0.4 mg Microbiology Results 01/03/19 16:25 Catheterized Urine [place] Count - Final >100,000 CFU/ML. 01/03/19 16:25 Catheterized Urine - Final Morganella Morganii Enterococcus Faecalis 01/03/19 16:50 Blood - Blood Aerobic Blood Culture - Final Proteus Mirabilis Esbl 01/03/19 16:50 Blood - Blood Gram Stain - Final 01/03/19 16:50 Blood - Blood Anaerobic Blood Culture - Final 01/03/19 16:35 Blood - Blood Aerobic Blood Culture - Final Proteus Mirabilis Esbl 01/03/19 16:35 Blood - Blood Gram Stain - Final 01/03/19 16:35 Blood - Blood Anaerobic Blood Culture - Final Assessment/ Plan: Nephrology. Doing well. CPS improved without CP or SOB. No acute events overnight. Vitals, medications, blood work and imaging reviewed in the chart. General: In no apparent distress, Oriented x3, Cooperative HEENT: Atraumatic, Mucous membr. moist/pink Neck: Supple Respiratory: Clear to auscultation bilaterally Cardiovascular: No edema, Regular rate/rhythm Gastrointestinal: Soft and benign, Non-distended Musculoskeletal: No clubbing, No contractures Integumentary: No rashes, No cyanosis Neurological: Abnormal speech Blood work reviewed in the chart. Cr 5.35 Imagings Data: EXAM DESCRIPTION: US - Renal Ultrasound-Complete - 01/03/2019 5:25 pm CLINICAL HISTORY: blocked duncan;Pain Flank pain COMPARISON: Abdomen Pelvis Wo Contrast dated 07/22/2018 FINDINGS: Both kidneys are normal in size, shape and echotexture. The right kidney measures 10.7 x 5.6 x 5.3 cm. Mild right hydronephrosis. Small benign right renal cysts. The left kidney measures 10.5 x 4.5 x 4.5 cm. No hydronephrosis, focal mass or perinephric fluid. The urinary bladder is incompletely distended without gross abnormality seen. IMPRESSION: Mild right hydronephrosis. Conclusions/Impression: A/ VITALY due to obstructive uropathy sp duncan. Hypernatremia. CKD III with proteinuria. Hypocalcemia. HypoPO4. Thrombocytopenia. Moderate malnutrition. CVD. Hx multiple CVA. ESBL Proteus Bacteremia/ Sepsis. Acute/ Chronic cystitis, Morganella & Entercoccus. P/ Continue current POC and Medications. Agree with duncan. Follow up with urology. Agree with Abx. Gentle IVF. Encourage nutrition. No NSAIDs. AM labs. Daily weight. EXAM DESCRIPTION: CT - Chest Abdomen Pelvis W Cont - 01/07/2019 9:30 am CLINICAL HISTORY: Chest and abdomen pain. UNCLEAR SOURCE OF PROTEUS COMPARISON: Abdomen Pelvis Wo Contrast dated 07/22/2018; Abdomen Pelvis Wo Contrast dated 04/05/2017 TECHNIQUE: Approximately 100 mL nonionic IV contrast was administered to the patient. All CT scans are performed using dose optimization technique as appropriate and may include automated exposure control or mA/KV adjustment according to patient size. FINDINGS: Mild linear subsegmental atelectasis is seen in both posterior lung bases.No focal pulmonary nodule, mass or infiltrate.No pleural or pericardial effusion.Mild bilateral pleural thickening.No intrathoracic adenopathy. The liver, spleen, pancreas, adrenal glands and kidneys are within normal limits. 14 mm cyst is present mid-pole right kidney. No bowel obstruction, free air, free fluid or abscess. Normal appendix. No pathologic lymphadenopathy in the abdomen or pelvis. Urinary bladder is decompressed by means of a Duncan catheter with air within the urinary bladder. Sclerotic changes with small erosions noted involving both sacroiliac joints suggesting sacroiliitis. No lytic or blastic bone lesion. IMPRESSION: Mild bilateral sacroiliitis is suspected.
[2019-01-08] MEDS: NA CHLORIDE 0.9% 1,000 ML IV SCH (03:55)
[2019-01-08 05:27] LABS: Absolute Lymphocytes (CBC) 1.8 K/uL (0.7-4.9); Basophils % 0.8 % (0-1.3); Eosinophils % 2.1 % (0-4.4); Hematocrit 41.9 % (39.6-49.0); MPV 9.7 fL (7.6-11.3); Monocytes % 12.7 % (3.3-12.3)
[2019-01-08] MEDS: Meropenem 500 MG in NA CHLORIDE 0.9% 100 ML IV SCH ×2 (09:27→20:52)
[2019-01-08] MEDS: levETIRAcetam 500 MG TAB PO SCH ×2 (09:28→20:49)
[2019-01-08] MEDS: VITAMIN D 5,000 UNIT CAP PO SCH (09:28)
[2019-01-08] MEDS: CARVEDILOL 3.125 MG TAB PO SCH ×2 (09:28→20:49)
[2019-01-08] MEDS: CALCITROL 0.25 MCG CAP PO SCH (09:28)
[2019-01-08] MEDS: LOSARTAN POTASSIUM 50 MG TABLET PO SCH (09:29)
[2019-01-08] MEDS: ASPIRIN EC 81 MG TAB PO SCH (09:29)
[2019-01-08] MEDS: ENOXAPARIN 30 MG/0.3 ML SQ SCH (17:27)
--- NOTE | 2019-01-08 20:04 | P.PN ---
Date of Service: 01/08/19 Vital Signs Temp Pulse Resp BP Pulse Ox 98.4 F 85 20 139/80 95 01/08/19 16:00 01/08/19 16:00 01/08/19 16:00 01/08/19 16:00 01/08/19 16:00 Medications Acetaminophen (Tylenol -Extra Strength) 500 mg PO Q4HP PRN PRN Reason: TEMP > 100' F Stop: 02/02/19 23:08 Last Admin: 01/07/19 17:04 Dose: 500 mg Aspirin (Aspirin Ec) 81 mg PO DAILY YO Stop: 02/04/19 09:01 Last Admin: 01/08/19 09:29 Dose: 81 mg Atorvastatin Calcium (Lipitor) 40 mg PO BEDTIME YO Stop: 02/02/19 23:08 Last Admin: 01/07/19 21:18 Dose: 40 mg Calcitriol (Rocaltrol) 0.5 mcg PO DAILY YO Stop: 02/06/19 09:01 Last Admin: 01/08/19 09:28 Dose: 0.5 mcg Carvedilol (Coreg) 3.125 mg PO BID YO Stop: 02/03/19 21:01 Last Admin: 01/08/19 09:28 Dose: 3.125 mg Cholecalciferol (Vitamin D 5,000 Iu Cap) 5,000 unit PO DAILY YO Stop: 02/06/19 09:01 Last Admin: 01/08/19 09:28 Dose: 5,000 unit Enoxaparin Sodium (Lovenox 30 Mg Inj) 30 mg SQ DAILY 5 PM OY Stop: 02/03/19 17:01 Last Admin: 01/08/19 17:27 Dose: 30 mg Sodium Chloride (Ns 1000 Ml Ivbag) 1,000 mls @ 50 mls/hr IV .Q20H YO Stop: 02/04/19 22:01 Last Admin: 01/08/19 03:55 Dose: 1,000 mls Meropenem 500 mg/ Sodium (Chloride) 100 mls @ 100 mls/hr IV Q12HR YO Stop: 02/05/19 09:01 Last Admin: 01/08/19 09:27 Dose: 100 mls Levetiracetam (Keppra Tab) 1,000 mg PO Q12HR YO Stop: 02/03/19 09:01 Last Admin: 01/08/19 09:28 Dose: 1,000 mg Losartan Potassium (Cozaar) 100 mg PO DAILY YO Stop: 02/04/19 09:01 Last Admin: 01/08/19 09:29 Dose: 100 mg Ondansetron HCl (Zofran) 4 mg IV Q6HP PRN PRN Reason: NAUSEA / VOMITING Stop: 02/02/19 23:08 Sodium Chloride (Normal Saline Flush) 10 ml IV BID YO Stop: 02/02/19 23:08 Last Admin: 01/08/19 09:29 Dose: 10 ml Tamsulosin HCl (Flomax) 0.4 mg PO BEDTIME YO Stop: 02/02/19 23:08 Last Admin: 01/07/19 21:18 Dose: 0.4 mg Microbiology Results 01/03/19 16:25 Catheterized Urine [place]innatus Count - Final >100,000 CFU/ML. 01/03/19 16:25 Catheterized Urine - Final Morganella Morganii Enterococcus Faecalis 01/03/19 16:50 Blood - Blood Aerobic Blood Culture - Final Proteus Mirabilis Esbl 01/03/19 16:50 Blood - Blood Gram Stain - Final 01/03/19 16:50 Blood - Blood Anaerobic Blood Culture - Final 01/03/19 16:35 Blood - Blood Aerobic Blood Culture - Final Proteus Mirabilis Esbl 01/03/19 16:35 Blood - Blood Gram Stain - Final 01/03/19 16:35 Blood - Blood Anaerobic Blood Culture - Final Assessment/ Plan: Nephrology. Doing well. CPS stable without CP or SOB. No acute events overnight. Vitals, medications, blood work and imaging reviewed in the chart. General: In no apparent distress, Oriented x3, Cooperative HEENT: Atraumatic, Mucous membr. moist/pink Neck: Supple Respiratory: Clear to auscultation bilaterally Cardiovascular: No edema, Regular rate/rhythm Gastrointestinal: Soft and benign, Non-distended Musculoskeletal: No clubbing, No contractures Integumentary: No rashes, No cyanosis Neurological: Abnormal speech Blood work reviewed in the chart. Cr 5.35 Imagings Data: EXAM DESCRIPTION: US - Renal Ultrasound-Complete - 01/03/2019 5:25 pm CLINICAL HISTORY: blocked duncan;Pain Flank pain COMPARISON: Abdomen Pelvis Wo Contrast dated 07/22/2018 FINDINGS: Both kidneys are normal in size, shape and echotexture. The right kidney measures 10.7 x 5.6 x 5.3 cm. Mild right hydronephrosis. Small benign right renal cysts. The left kidney measures 10.5 x 4.5 x 4.5 cm. No hydronephrosis, focal mass or perinephric fluid. The urinary bladder is incompletely distended without gross abnormality seen. IMPRESSION: Mild right hydronephrosis. Conclusions/Impression: A/ VITALY due to obstructive uropathy sp duncan. Hypernatremia. CKD III with proteinuria. Hypocalcemia. HypoPO4. Thrombocytopenia. Moderate malnutrition. CVD. Hx multiple CVA. ESBL Proteus Bacteremia/ Sepsis. Acute/ Chronic cystitis, Morganella & Entercoccus. P/ Continue current POC and Medications. Continue duncan. Follow up with urology. Agree with Abx. Gentle IVF. Encourage nutrition. No NSAIDs. AM labs. Daily weight. EXAM DESCRIPTION: CT - Chest Abdomen Pelvis W Cont - 01/07/2019 9:30 am CLINICAL HISTORY: Chest and abdomen pain. UNCLEAR SOURCE OF PROTEUS COMPARISON: Abdomen Pelvis Wo Contrast dated 07/22/2018; Abdomen Pelvis Wo Contrast dated 04/05/2017 TECHNIQUE: Approximately 100 mL nonionic IV contrast was administered to the patient. All CT scans are performed using dose optimization technique as appropriate and may include automated exposure control or mA/KV adjustment according to patient size. FINDINGS: Mild linear subsegmental atelectasis is seen in both posterior lung bases.No focal pulmonary nodule, mass or infiltrate.No pleural or pericardial effusion.Mild bilateral pleural thickening.No intrathoracic adenopathy. The liver, spleen, pancreas, adrenal glands and kidneys are within normal limits. 14 mm cyst is present mid-pole right kidney. No bowel obstruction, free air, free fluid or abscess. Normal appendix. No pathologic lymphadenopathy in the abdomen or pelvis. Urinary bladder is decompressed by means of a Duncan catheter with air within the urinary bladder. Sclerotic changes with small erosions noted involving both sacroiliac joints suggesting sacroiliitis. No lytic or blastic bone lesion. IMPRESSION: Mild bilateral sacroiliitis is suspected.
[2019-01-08] MEDS: ATORVASTATIN 40 MG TAB PO SCH (20:49)
[2019-01-08] MEDS: TAMSULOSIN 0.4 MG SR CAP PO SCH (20:49)
--- NOTE | 2019-01-08 21:32 | P.DS ---
Admission Date: 01/03/19 Discharge Date: 01/08/19 Disposition: DC HOME/HOME HEALTH CARE Discharge Condition: FAIR Reason for Admission: urinary retention, catheter related UTI, acute renal injury - Problems (1) Obstructed, uropathy Current Visit: Yes Status: Acute (2) CVA (cerebral vascular accident) Onset Date: Unknown Current Visit: No Status: Chronic Qualifiers: CVA mechanism: embolism Precerebral and cerebral artery: unspecified precerebral artery Qualified Code(s): I63.10 - Cerebral infarction due to embolism of unspecified precerebral artery (3) Proteus septicemia Current Visit: Yes Status: Acute Hospital Course: MR. JAEGER IS DOING GREAT. I WAITING FOR TWO DAYS FOR PLANNING FOR HOME ANTIBIOTICS BY [employer] INSURANCE COMPANY. I ADVISED HALFWAY BUT FAMILY CHOSE HOME ANTIBIOTICS. HE HAS PROTEUS ESBL SEPTICEMIA . I SUSPECT MOST LIKLEY TO BE URINE IN ORIGIN. HIS CT SCANS OF CHEST , ABDOMEN ARE NEGATIVE AND ECHO IS NEGATIVE. PROTEUS IS A BACTERIA USUALLY FROM GI OR URINARY TRACT. HE HAS NO SIGNS OF ENDOCARDITIS. I WILL GIVE ABX FOR 14 DAYS AND THEN WATCH HIM CLINICALLY. Vital Signs/Physical Exam: Temp Pulse Resp BP Pulse Ox 97.8 F 74 18 120/59 L 96 01/08/19 20:00 01/08/19 20:49 01/08/19 20:00 01/08/19 20:49 01/08/19 20:00 General: Alert, In no apparent distress HEENT: Atraumatic, PERRLA, EOMI Neck: Supple, JVD not distended Respiratory: Clear to auscultation bilaterally, Normal air movement Cardiovascular: Regular rate/rhythm, Normal S1 S2 Gastrointestinal: Normal bowel sounds, No tenderness Musculoskeletal: No tenderness Integumentary: No rashes Neurological: Normal speech, Normal tone, Normal affect Lymphatics: No axilla or inguinal lymphadenopathy Laboratory Data at Discharge: WBC 10.8 K/uL (4.3-10.9) 01/08/19 05:05 Hgb 14.2 g/dL (13.6-17.9) 01/08/19 05:05 Hct 41.9 % (39.6-49.0) 01/08/19 05:05 Plt Count 168 K/uL (152-406) D 01/08/19 05:05 Sodium 140 mmol/L (136-145) 01/08/19 05:05 Potassium 4.0 mmol/L (3.5-5.1) 01/08/19 05:05 BUN 15 mg/dL (7-18) 01/08/19 05:05 Creatinine 1.18 mg/dL (0.55-1.3) 01/08/19 05:05 Glucose 97 mg/dL (74-106) 01/08/19 05:05 Uric Acid 3.9 mg/dL (3.5-7.2) 01/07/19 04:32 Phosphorus 3.2 mg/dL (2.5-4.9) 01/07/19 04:32 Magnesium Cancelled 01/05/19 05:00 Total Bilirubin 1.1 mg/dL (0.2-1.0) H 01/05/19 03:40 AST 27 U/L (15-37) 01/05/19 03:40 ALT 27 U/L (12-78) 01/05/19 03:40 Alkaline Phosphatase 47 U/L (45-117) 01/05/19 03:40 Lipase 59 U/L (73-393) L 01/03/19 17:45 Home Medications: Atorvastatin Calcium 20 mg PO BEDTIME 01/07/17 Losartan Potassium 100 mg PO DAILY 01/07/17 levETIRAcetam [Levetiracetam] 1,000 mg PO Q12HR 01/07/17 Aspirin [Aspirin EC 81 MG] 1 tab PO DAILY 01/04/19 Carvedilol 1 tab PO BID 01/04/19 Diet: [facility] Followup: Alexandre Cannon MD [Primary Care Provider] - (follow up with Dr. Cannon in 10 days. )
[2019-01-09] MEDS: NA CHLORIDE 0.9% 1,000 ML IV SCH (02:21)
[2019-01-09 05:07] LABS: Basophils % 0.7 % (0-1.3); Eosinophils % 1.9 % (0-4.4); Hematocrit 39.7 % (39.6-49.0); Lymphocytes % 20.2 % (15.3-44.8); MPV 10.2 fL (7.6-11.3); Monocytes % 12.1 % (3.3-12.3); RBC Red Blood Cell Count 4.23 M/uL (4.33-5.43)
[2019-01-09] MEDS: CARVEDILOL 3.125 MG TAB PO SCH (08:24)
[2019-01-09] MEDS: Meropenem 500 MG in NA CHLORIDE 0.9% 100 ML IV SCH (08:24)
[2019-01-09] MEDS: levETIRAcetam 500 MG TAB PO SCH (08:25)
[2019-01-09] MEDS: VITAMIN D 5,000 UNIT CAP PO SCH (08:25)
[2019-01-09] MEDS: CALCITROL 0.25 MCG CAP PO SCH (08:25)
[2019-01-09] MEDS: LOSARTAN POTASSIUM 50 MG TABLET PO SCH (08:25)
[2019-01-09] MEDS: ASPIRIN EC 81 MG TAB PO SCH (08:26)
[2019-01-09 12:51] VITALS: O2SAT 97
[2019-01-09 13:13] VITALS: BP 113/71; TEMP 98.4
--- NOTE | 2019-01-09 14:34 | P.DS ---
Admission Date: 01/03/19 Discharge Date: 01/09/19 Disposition: DC HOME/HOME HEALTH CARE Discharge Condition: FAIR Reason for Admission: urinary retention, catheter related UTI, acute renal injury - Problems (1) Obstructed, uropathy Current Visit: Yes Status: Acute (2) CVA (cerebral vascular accident) Onset Date: Unknown Current Visit: No Status: Chronic Qualifiers: CVA mechanism: embolism Precerebral and cerebral artery: unspecified precerebral artery Qualified Code(s): I63.10 - Cerebral infarction due to embolism of unspecified precerebral artery (3) Proteus septicemia Current Visit: Yes Status: Acute Hospital Course: MR. JAEGER IS DOING GREAT. I WAITING FOR TWO DAYS FOR PLANNING FOR HOME ANTIBIOTICS BY [employer]. I ADVISED RESIDENTIAL BUT FAMILY CHOSE HOME ANTIBIOTICS. HE HAS PROTEUS ESBL SEPTICEMIA . I SUSPECT MOST LIKLEY TO BE URINE IN ORIGIN. HIS CT SCANS OF CHEST , ABDOMEN ARE NEGATIVE AND ECHO IS NEGATIVE. PROTEUS IS A BACTERIA USUALLY FROM GI OR URINARY TRACT. HE HAS NO SIGNS OF ENDOCARDITIS. I WILL GIVE ABX FOR 14 DAYS AND THEN WATCH HIM CLINICALLY. MR. JAEGER HAS PROTEUS SEPSIS. SOURCE IS UNCLEAR ON FULL INESTIGATION BUT POINTS TOWARDS UTI EVENTHOUGH URINE CULTURE DOES NOT GROW THIS BACTERIA. HE HAD POST OBST UROPATHY. HE HAS IMPROVED CLINICALLY BACK TO BASELINE. I SAW THE DAUGHTER TODAY. I EXPLAINED THAT HE NEEDS PROSTATECTOMY PER DR. BURNS BUT HE DOES NOT WANT TO DO IT. WITH INDWE[facility]ING MARY HE WILL GET INFECTION SOMETIME. GIVING KEFLEX ORALLY TO PREVENT, DOES WORK FOR SOME TIME BUT LATER PATIENT GETS RESISTANT INFECTION. THAT IS WHAT HAPPEND TO HIM. THEY WILL GO BACK TO DR. BURNS AND DISCUSS SURGERY. I CALLED DR. BURNS AND DISCUSSED. HE TOLD ME THAT HE HAS ASKED HIM AND FAMILY TO CONSIDER SURGERY MULTIPLE TIMES BUT THEY HAVE REFUSED TO DO SO. Vital Signs/Physical Exam: Temp Pulse Resp BP Pulse Ox 98.4 F 85 16 113/71 97 01/09/19 12:00 01/09/19 12:00 01/09/19 12:00 01/09/19 12:00 01/09/19 12:00 Laboratory Data at Discharge: WBC 9.8 K/uL (4.3-10.9) 01/09/19 04:10 Hgb 13.4 g/dL (13.6-17.9) L 01/09/19 04:10 Hct 39.7 % (39.6-49.0) 01/09/19 04:10 Plt Count 179 K/uL (152-406) 01/09/19 04:10 Sodium 140 mmol/L (136-145) 01/08/19 05:05 Potassium 4.0 mmol/L (3.5-5.1) 01/08/19 05:05 BUN 15 mg/dL (7-18) 01/08/19 05:05 Creatinine 1.18 mg/dL (0.55-1.3) 01/08/19 05:05 Glucose 97 mg/dL (74-106) 01/08/19 05:05 Uric Acid 3.9 mg/dL (3.5-7.2) 01/07/19 04:32 Phosphorus 3.2 mg/dL (2.5-4.9) 01/07/19 04:32 Magnesium Cancelled 01/05/19 05:00 Total Bilirubin 1.1 mg/dL (0.2-1.0) H 01/05/19 03:40 AST 27 U/L (15-37) 01/05/19 03:40 ALT 27 U/L (12-78) 01/05/19 03:40 Alkaline Phosphatase 47 U/L (45-117) 01/05/19 03:40 Lipase 59 U/L (73-393) L 01/03/19 17:45 Home Medications: Atorvastatin Calcium 20 mg PO BEDTIME 01/07/17 Losartan Potassium 100 mg PO DAILY 01/07/17 levETIRAcetam [Levetiracetam] 1,000 mg PO Q12HR 01/07/17 Aspirin [Aspirin EC 81 MG] 1 tab PO DAILY 01/04/19 Carvedilol 1 tab PO BID 01/04/19 Diet: [facility] Followup: Alexandre Cannon MD [Primary Care Provider] - (follow up with Dr. Cannon in 10 days. )
--- NOTE | 2019-01-09 22:52 | P.PN ---
Date of Service: 01/09/19 Vital Signs Temp Pulse Resp BP Pulse Ox 98.4 F 85 16 113/71 97 01/09/19 12:00 01/09/19 12:00 01/09/19 12:00 01/09/19 12:00 01/09/19 12:00 Microbiology Results 01/03/19 16:25 Catheterized Urine [place] Count - Final >100,000 CFU/ML. 01/03/19 16:25 Catheterized Urine - Final Morganella Morganii Enterococcus Faecalis 01/03/19 16:50 Blood - Blood Aerobic Blood Culture - Final Proteus Mirabilis Esbl 01/03/19 16:50 Blood - Blood Gram Stain - Final 01/03/19 16:50 Blood - Blood Anaerobic Blood Culture - Final 01/03/19 16:35 Blood - Blood Aerobic Blood Culture - Final Proteus Mirabilis Esbl 01/03/19 16:35 Blood - Blood Gram Stain - Final 01/03/19 16:35 Blood - Blood Anaerobic Blood Culture - Final Assessment/ Plan: Nephrology. Doing well. CPS stable without CP or SOB. No acute events overnight. Vitals, medications, blood work and imaging reviewed in the chart. General: In no apparent distress, Oriented x3, Cooperative HEENT: Atraumatic, Mucous membr. moist/pink Neck: Supple Respiratory: Clear to auscultation bilaterally Cardiovascular: No edema, Regular rate/rhythm Gastrointestinal: Soft and benign, Non-distended Musculoskeletal: No clubbing, No contractures Integumentary: No rashes, No cyanosis Neurological: Abnormal speech Blood work reviewed in the chart. Cr 5.35 Imagings Data: EXAM DESCRIPTION: US - Renal Ultrasound-Complete - 01/03/2019 5:25 pm CLINICAL HISTORY: blocked duncan;Pain Flank pain COMPARISON: Abdomen Pelvis Wo Contrast dated 07/22/2018 FINDINGS: Both kidneys are normal in size, shape and echotexture. The right kidney measures 10.7 x 5.6 x 5.3 cm. Mild right hydronephrosis. Small benign right renal cysts. The left kidney measures 10.5 x 4.5 x 4.5 cm. No hydronephrosis, focal mass or perinephric fluid. The urinary bladder is incompletely distended without gross abnormality seen. IMPRESSION: Mild right hydronephrosis. Conclusions/Impression: A/ VITALY due to obstructive uropathy sp duncan. Hypernatremia. CKD III with proteinuria. Hypocalcemia. HypoPO4. Thrombocytopenia. Moderate malnutrition. CVD. Hx multiple CVA. ESBL Proteus Bacteremia/ Sepsis. Acute/ Chronic cystitis, Morganella & Entercoccus. P/ Continue current POC and Medications. Continue duncan. Follow up with urology. Agree with Abx. Discontinue IVF. Encourage nutrition. No NSAIDs. AM labs. Daily weight. EXAM DESCRIPTION: CT - Chest Abdomen Pelvis W Cont - 01/07/2019 9:30 am CLINICAL HISTORY: Chest and abdomen pain. UNCLEAR SOURCE OF PROTEUS COMPARISON: Abdomen Pelvis Wo Contrast dated 07/22/2018; Abdomen Pelvis Wo Contrast dated 04/05/2017 TECHNIQUE: Approximately 100 mL nonionic IV contrast was administered to the patient. All CT scans are performed using dose optimization technique as appropriate and may include automated exposure control or mA/KV adjustment according to patient size. FINDINGS: Mild linear subsegmental atelectasis is seen in both posterior lung bases.No focal pulmonary nodule, mass or infiltrate.No pleural or pericardial effusion.Mild bilateral pleural thickening.No intrathoracic adenopathy. The liver, spleen, pancreas, adrenal glands and kidneys are within normal limits. 14 mm cyst is present mid-pole right kidney. No bowel obstruction, free air, free fluid or abscess. Normal appendix. No pathologic lymphadenopathy in the abdomen or pelvis. Urinary bladder is decompressed by means of a Duncan catheter with air within the urinary bladder. Sclerotic changes with small erosions noted involving both sacroiliac joints suggesting sacroiliitis. No lytic or blastic bone lesion. IMPRESSION: Mild bilateral sacroiliitis is suspected.
== END 2019-01-09 15:30 | disposition home health service (06) | DRG 698 ==
LOC: ER 15:28 → ERHOLD 20:18 → 2ND 22:26
PROVIDERS: ADMIT Family Medicine; ATTEND Internal Medicine
PROC: 02HV33Z Insertion of Infusion Device into Superior Vena Cava, Percutaneous Approach (ICD-10-PCS; principal; 2019-01-06)
DX: T83.511A Infection and inflammatory reaction due to indwelling urethral catheter, initial encounter (principal); A41.59 Other Gram-negative sepsis; G93.41 Metabolic encephalopathy; N17.9 Acute kidney failure, unspecified; N13.6 Pyonephrosis; E44.0 Moderate protein-calorie malnutrition; E87.0 Hyperosmolality and hypernatremia; T83.098A Other mechanical complication of other urinary catheter, initial encounter; N34.2 Other urethritis; Y84.6 Urinary catheterization as the cause of abnormal reaction of the patient, or of later complication, without mention of misadventure at the time of the procedure; R33.9 Retention of urine, unspecified; I12.9 Hypertensive chronic kidney disease with stage 1 through stage 4 chronic kidney disease, or unspecified chronic kidney disease; N18.3 Chronic kidney disease, stage 3 (moderate); B95.2 Enterococcus as the cause of diseases classified elsewhere; Z16.12 Extended spectrum beta lactamase (ESBL) resistance; E78.2 Mixed hyperlipidemia; E78.00 Pure hypercholesterolemia, unspecified; G40.909 Epilepsy, unspecified, not intractable, without status epilepticus; D69.6 Thrombocytopenia, unspecified; E83.51 Hypocalcemia; K21.9 Gastro-esophageal reflux disease without esophagitis; Z68.30 Body mass index [BMI] 30.0-30.9, adult; Z86.73 Personal history of transient ischemic attack (TIA), and cerebral infarction without residual deficits
CPT/HCPCS: 36415; 71045; 71260; 74177; 76770; 80048; 80053; 80076; 81001; 81003; 81015; 82043; 82570; 82805; 83615; 83690; 83735; 84100; 84145; 84550; 85025; 85652; 86335; 87040; 87077; 87086; 87088; 87186; 87205; 93005; 93306; 96360; 96361; 97116; 97163; 99285; J1650; J2543; J7030; Q9967

== ENCOUNTER 2019-10-30 12:12 | Emergency (ER) | payer OTHER ==
[2019-10-30 15:07] LABS: Urine Bacteria <20 /HPF (NONE SEEN)
[2019-10-30 15:08] LABS: Urine Blood 3+ (NEG); Urine Glucose NEGATIVE (NEG); Urine Protein 1+ (NEG); Urine Specific Gravity 1.025 (1.005-1.030)
[2019-10-30 15:08] LABS: Urine Culture Reflex Order NOT NEEDED
--- NOTE | 2019-10-30 15:47 | ER ---
Nurse's Notes [facility] Name: Francheska Bolaños Jr Age: 63 yrs Sex: Male : 1955 Arrival Date: 10/30/2019 Time: 12:18 Bed 8 Private MD: Alexandre Cannon V Diagnosis: Obstructed duncan Catheter - resolved Presentation: 10/29 12:18 Chief complaint: Patient's son or daughter states: "normally he gets his duncan replaced aa5 at Dr. Beltran's office but since all this virus thing is going on yesterday a nurse came to the house to change it but instead of the 19Fr that he normally gets the nurse placed a 18Fr and it hasn't been draining urine since she put it in yesterday around 5pm". Pt's daughter states "this happened before and he had a UTI". Upon assessment Duncan catheter was noted to be without a duncan bag and with an anti-reflux valve preventing urine flow, placed Duncan bag and small amount of urine started to flow. 12:18 Coronavirus screen: Proceed with normal triage. Ebola Screen: Patient negative for aa5 fever greater than or equal to 101.5 degrees Fahrenheit, and additional compatible Ebola Virus Disease symptoms. Risk Assessment: Do you want to hurt yourself or someone else? Unable to obtain. Onset of symptoms was October 30, 2019. 12:18 Acuity: MAGI 3 aa5 12:18 Method Of Arrival: Wheelchair aa5 12:18 Initial Sepsis Screen: Does the patient meet any 2 criteria? No. Patient's initial aa5 sepsis screen is negative. Does the patient have a suspected source of infection? Yes:. Historical: - Allergies: 12:42 No Known Allergies; aa5 - Home Meds: 12:18 aspirin 81 mg Oral TbEC 1 tab once daily [Active]; atorvastatin 20 mg Oral tab 1 tab aa5 once daily [Active]; carvedilol 3.125 mg Oral tab 1 tab 2 times per day [Active]; cephalexin 500 mg Oral cap daily [Active]; levetiracetam 1,000 mg Oral tab 1 tab every 12 hours [Active]; losartan 100 mg Oral tab 1 tab once daily [Active]; - PMHx: 12:18 CVA; GERD; High Cholesterol; Hypertension; Seizures; aa5 - PSHx: 12:18 RICARDA hip replacement; Leg stents; Loop recorder; aa5 Screenin:13 Abuse screen: Denies threats or abuse. Nutritional screening: No deficits noted. em Tuberculosis screening: No symptoms or risk factors identified. Fall Risk None identified. Assessment: 13:07 Reassessment: notified 2nd floor to bring bladder scanner to ED. em 13:12 General: Appears in no apparent distress. comfortable, Behavior is calm, cooperative, em appropriate for age, Denies fever. Pain: Denies pain. Neuro: Level of Consciousness is awake, alert, obeys commands, Oriented to person, place, time, situation, Appropriate for age Speech is slurred, pt reports hx of CVA. Cardiovascular: Capillary refill < 3 seconds Patient's skin is warm and dry. Respiratory: Airway is patent Respiratory effort is even, unlabored, Respiratory pattern is regular, symmetrical. GI: Abdomen is flat, PEG tube in place, clamped. Site clean. Site with drainage. Abd is soft and non tender X 4 quads. Patient currently denies abdominal pain. : Duncan in place to gravity drainage Urine is clear, and tea color Genitalia appear normal. Derm: Skin is intact, is healthy with good turgor, Skin is pink, warm \\T\\ dry. Musculoskeletal: Capillary refill < 3 seconds, Range of motion: intact in all extremities. 14:20 Reassessment: Patient appears in no apparent distress at this time. Patient and/or em family updated on plan of care and expected duration. Pain level reassessed. Patient is alert, oriented x 3, equal unlabored respirations, skin warm/dry/pink. 15:45 Reassessment: Patient appears in no apparent distress at this time. Patient and/or em family updated on plan of care and expected duration. Pain level reassessed. Patient is alert, oriented x 3, equal unlabored respirations, skin warm/dry/pink. Vital Signs: 12:18 BP 168 / 110; Pulse 83; Resp 18 S; Temp 98.3(O); Pulse Ox 98% on R/A; aa5 13:15 BP 123 / 95; Pulse 84; Resp 18; Pulse Ox 97% on R/A; em 14:45 BP 126 / 94; Pulse 70; Resp 18; Pulse Ox 98% on R/A; em 16:02 BP 127 / 96; Pulse 68; Resp 18; Pulse Ox 98% on R/A; em ED Course: 12:18 Patient arrived in ED. am2 12:18 Alexandre Cannon MD is Private Physician. am2 12:18 Arm band placed on. aa5 12:19 Scott Kellogg MD is Attending Physician. kdr 12:21 Arias Vick, RN is Primary Nurse. em 12:40 Triage completed. aa5 13:13 Patient has correct armband on for positive identification. Bed in low position. Call em light in reach. Side rails up X2. Pulse ox on. NIBP on. 14:08 Bladder scan completed. 303 mL after Duncan irrigation, flushed with NS, pt tolerated em well, provider notified, received new orders. 14:26 Duncan cath removed intact, balloon deflated. em 14:30 Duncan cath inserted, using sterile technique, 18 Fr., by ky, balloon inflated, returned em clear yellow urine. Patient tolerated well. 14:34 Bladder scan completed. 36 mL after reinsertion of new Duncan catheter, Dr. Kellogg em notified. 15:41 Alexandre Cannon MD is Referral Physician. kdr 16:40 No provider procedures requiring assistance completed. Patient did not have IV access aa5 during this emergency room visit. Administered Medications: 15:49 Not Given (Physician Discretion): Cipro 500 mg PO once em Outcome: 15:47 Discharge ordered by . kdr 16:40 Discharged to home via wheelchair, with daughter aa5 16:40 Condition: improved 16:40 Discharge instructions given to Pt's daughter Instructed on discharge instructions, follow up and referral plans. Demonstrated understanding of instructions, follow-up care. 16:43 Patient left the ED. aa5 Addendum: 11/03/2019 08:53 Addendum: Culture Results: Positive urine culture. Phone call Attempt #1 Unable to a a5 leave voicemail. Faxed results to Dr. Cannon (pt's PCP). Signatures: Scott Kellogg MD MD kdr Arias Vick, RN RN em Verito Stock RN RN aa5 Andreia Arroyo am2 Corrections: (The following items were deleted from the chart) 10/29 12:45 12:18 Chief complaint: Patient's son or daughter states: "normally he gets his duncan aa[address] Beltran's office but since all this virus thing is going on yesterday a nurse came to the house to change it but instead of the 19Fr that he normally gets the nurse placed a 18Fr and it hasn't been draining urine since she put it in yesterday around 5pm". aa5 14:33 13:12 GI: Abdomen is flat, Abd is soft and non tender X 4 quads. Patient currently em denies abdominal pain, em
--- NOTE | 2019-10-30 15:47 | EDPHYS ---
Physician Documentation [facility] Name: Francheska Bolaños Jr Age: 63 yrs Sex: Male : 1955 Arrival Date: 10/30/2019 Time: 12:18 Bed 8 Private MD: Alexandre Cannon V ED Physician Scott Kellogg HPI: 10/29 13:58 This 63 yrs old Black Male presents to ER via Wheelchair with complaints of Problem kdr With Urinary Catheter, Urinary Retention. 13:58 The patient presents with a Duncan catheter problem, is not draining, states that kdr he had his Duncan was changed out yesterday and that he has c/o pain in the suprapubic area. states that the Duncan they repacked the prior cath with was a 18F, one sise to small. Onset: The symptoms/episode began/occurred gradually, today. Modifying factors: The symptoms are alleviated by nothing, the symptoms are aggravated by nothing. Associated signs and symptoms: Pertinent positives: abdominal pain, Pertinent negatives: constipation, diarrhea, dysuria, fever, hematuria, nausea, vomiting. Severity of symptoms: At their worst the symptoms were mild, in the emergency department the symptoms are unchanged. The patient has not experienced similar symptoms in the past. The patient has not recently seen a physician. Historical: - Allergies: 12:42 No Known Allergies; aa5 - Home Meds: 12:18 aspirin 81 mg Oral TbEC 1 tab once daily [Active]; atorvastatin 20 mg Oral tab 1 tab aa5 once daily [Active]; carvedilol 3.125 mg Oral tab 1 tab 2 times per day [Active]; cephalexin 500 mg Oral cap daily [Active]; levetiracetam 1,000 mg Oral tab 1 tab every 12 hours [Active]; losartan 100 mg Oral tab 1 tab once daily [Active]; - PMHx: 12:18 CVA; GERD; High Cholesterol; Hypertension; Seizures; aa5 - PSHx: 12:18 RICARDA hip replacement; Leg stents; Loop recorder; aa5 ROS: 13:58 Constitutional: Negative for fever, chills, and weight loss, Eyes: Negative for injury, kdr pain, redness, and discharge, Neck: Negative for injury, pain, and swelling, Cardiovascular: Negative for chest pain, palpitations, and edema, Respiratory: Negative for shortness of breath, cough, wheezing, and pleuritic chest pain, Back: Negative for injury and pain, : Negative for injury, bleeding, discharge, and swelling, MS/Extremity: Negative for injury and deformity, Skin: Negative for injury, rash, and discoloration, Neuro: Negative for headache, weakness, numbness, tingling, and seizure activity. Psych: Negative for depression, anxiety, suicide ideation, homicidal ideation, and hallucinations, Allergy/Immunology: Negative for hives, rash, and allergies, Endocrine: Negative for neck swelling, polydipsia, polyuria, polyphagia, and marked weight changes, Hematologic/Lymphatic: Negative for swollen nodes, abnormal bleeding, and unusual bruising. 13:58 Abdomen/GI: Positive for abdominal pain, Suprapubic pain. Exam: 13:58 Constitutional: This is a well developed, well nourished patient who is awake, alert, kdr and in no acute distress. Head/Face: Normocephalic, atraumatic. Eyes: Pupils equal round and reactive to light, extra-ocular motions intact. Lids and lashes normal. Conjunctiva and sclera are non-icteric and not injected. Cornea within normal limits. Periorbital areas with no swelling, redness, or edema. Neck: Trachea midline, no thyromegaly or masses palpated, and no cervical lymphadenopathy. Supple, full range of motion without nuchal rigidity, or vertebral point tenderness. No Meningismus. Chest/axilla: Normal chest wall appearance and motion. Nontender with no deformity. No lesions are appreciated. Cardiovascular: Regular rate and rhythm with a normal S1 and S2. No gallops, murmurs, or rubs. Normal PMI, no JVD. No pulse deficits. Respiratory: Lungs have equal breath sounds bilaterally, clear to auscultation and percussion. No rales, rhonchi or wheezes noted. No increased work of breathing, no retractions or nasal flaring. Back: No spinal tenderness. No costovertebral tenderness. Full range of motion. Skin: Warm, dry with normal turgor. Normal color with no rashes, no lesions, and no evidence of cellulitis. MS/ Extremity: Pulses equal, no cyanosis. Neurovascular intact. Full, normal range of motion. 13:58 Neuro: Mentation: lucid, able to follow commands, slow to respond, Appears to be at baseline. Vital Signs: 12:18 BP 168 / 110; Pulse 83; Resp 18 S; Temp 98.3(O); Pulse Ox 98% on R/A; aa5 13:15 BP 123 / 95; Pulse 84; Resp 18; Pulse Ox 97% on R/A; em 14:45 BP 126 / 94; Pulse 70; Resp 18; Pulse Ox 98% on R/A; em 16:02 BP 127 / 96; Pulse 68; Resp 18; Pulse Ox 98% on R/A; em MDM: 15:47 Patient medically screened. kdr 16:08 Data reviewed: vital signs, nurses notes, lab test result(s). Counseling: I had a kdr detailed discussion with the patient and/or guardian regarding: the historical points, exam findings, and any diagnostic results supporting the discharge/admit diagnosis, lab results, the need for outpatient follow up. 16:10 Physician consultation: Alexandre Cannon MD regarding consult, patient's condition, kdr outpatient follow-up, next week, No abx. 10/29 14:49 Order name: Urine Microscopic Only; Complete Time: 15:38 em 10/29 14:49 Order name: Urine Culture em 10/29 14:15 Order name: Misc. Order: replace duncan; Complete Time: 14:32 em 10/29 15:06 Order name: Urine Dipstick--Ancillary (enter results); Complete Time: 15:38 eb Administered Medications: 15:49 Not Given (Physician Discretion): Cipro 500 mg PO once em Disposition: 10/30/19 15:47 Discharged to Home. Impression: Obstructed duncan Catheter - resolved. - Condition is Stable. - Medication Reconciliation Form, Thank You Letter, Antibiotic Education, Prescription Opioid Use form. - Follow up: Alexandre Cannon MD; When: 2 - 3 days; Reason: If symptoms return, Further diagnostic work-up, Recheck today's complaints, Continuance of care, Re-evaluation by your physician. - Problem is new. - Symptoms have improved. Signatures: Dispatcher [employer] EDMS Scott Kellogg MD MD [facility] Arias Vick RN RN Verito Stock RN RN aa5 Corrections: (The following items were deleted from the chart) 16:43 15:47 10/30/2019 15:47 Discharged to Home. Impression: Obstructed duncan Catheter - aa5 resolved. Condition is Stable. Forms are Medication Reconciliation Form, Thank You Letter, Antibiotic Education, Prescription Opioid Use. Follow up: Alexandre Cannon; When: 2 - 3 days; Reason: If symptoms return, Further diagnostic work-up, Recheck today's complaints, Continuance of care, Re-evaluation by your physician. Problem is new. Symptoms have improved. kdr
[2019-10-30 16:58] VITALS: TEMP 98.3
[2019-10-30 17:01] VITALS: O2SAT 98
[2019-10-30 17:02] VITALS: BP 127/96
== END 2019-10-30 16:43 | disposition home or self-care (01) ==
LOC: ER 12:12
PROC: 0T2BX0Z Change Drainage Device in Bladder, External Approach (ICD-10-PCS; principal; 2019-10-30)
DX: T83.098A Other mechanical complication of other urinary catheter, initial encounter (principal); I10 Essential (primary) hypertension; E78.00 Pure hypercholesterolemia, unspecified; G40.909 Epilepsy, unspecified, not intractable, without status epilepticus; Z79.82 Long term (current) use of aspirin
CPT/HCPCS: 51702; 81003; 81015; 87077; 87086; 87088; 87186; 99284

== ENCOUNTER 2020-11-23 17:30 | Inpatient (IN) | payer OTHER ==
[2020-11-23] MEDS ORDERED: NA CHLORIDE 0.9% 1,000 ML ONE (18:42)
[2020-11-23] MEDS ORDERED: ONDANSETRON 4 MG/2 ML VIAL ONE (18:42)
[2020-11-23] MEDS ORDERED: FAMOTIDINE 20 MG/2 ML VIAL IV ONE (18:42)
--- NOTE | 2020-11-23 18:59 | RAD REPORT ---
EXAM DESCRIPTION: RAD - Chest Single View - 11/23/2020 6:52 pm CLINICAL HISTORY: nausea/vomiting COMPARISON: Portable December 2018 TECHNIQUE: AP portable chest image was obtained 11/23/2020 6:52 pm . FINDINGS: Patient is in lordotic positioning and shallow inspiration. Interstitial pattern is simila r to comparison. No peripheral mass or consolidation. Cardiac device overlies the lower left chest. H eart and vasculature are normal. No measurable pleural effusion and no pneumothorax. No acute bony ab normality seen. No acute aortic findings suspected. IMPRESSION: Limited portable chest with no acute cardiopulmonary process.
[2020-11-23 20:16] LABS: Absolute Lymphocytes (CBC) 0.9 K/uL (0.7-4.9); Basophils % 0.1 % (0-1.3); Lymphocytes % 5.7 % (15.3-44.8); MPV 11.1 fL (7.6-11.3); RBC Red Blood Cell Count 4.97 M/uL (4.33-5.43)
[2020-11-23 20:18] LABS: Protime INR 1.28
[2020-11-23 20:35] LABS: Albumin 2.8 g/dL (3.4-5.0); Bilirubin Direct 1.3 mg/dL (0-0.2); Bilirubin Total 2.4 mg/dL (0.2-1.0); Magnesium 2.2 mg/dL (1.8-2.4); Potassium 4.7 mmol/L (3.5-5.1); Protein, Total 7.3 g/dL (6.4-8.2); Troponin (Emerg Dept Use Only) 0.04 ng/mL (0.0-0.045)
--- NOTE | 2020-11-23 21:13 | RAD REPORT ---
EXAM DESCRIPTION: CT - Head Brain Wo Cont - 11/23/2020 8:48 pm CLINICAL HISTORY: WEAKNESS, CVA, seizures COMPARISON: Head Brain Wo Cont dated 08/29/2018 TECHNIQUE: Axial 5 mm thick images of the head were obtained without IV contrast. All CT scans are performed using dose optimization technique as appropriate and may include automated exposure control or mA/KV adjustment according to patient size. FINDINGS: No intracranial hemorrhage, mass, edema or shift of mid-line structures. No acute cortical based infarction. Advanced for age atrophy changes are present. Large area of gliosis from old CVA i nvolving the left parietal lobe and lateral temporal lobe. posterolateral right frontal lobe old CVA changes are present. There is old CVA changed in the deep periventricular white matter left frontal l obe. Ventricles are in proportion to volume loss. Very dense arterial tree calcifications are present . No abnormal extra-axial fluid collections. Intracranial findings are similar to comparison. Mastoid air cells and visualized portions of the paranasal sinuses are clear. No acute bony findings. IMPRESSION: Negative non-contrast CT head examination for acute finding. Multifocal old infarction changes are present along with advanced for age atrophy. Intracranial findi ngs are similar to 2019.
--- NOTE | 2020-11-23 21:18 | RAD REPORT ---
EXAM DESCRIPTION: CT - Abdomen Pelvis Wo Contrast - 11/23/2020 8:50 pm CLINICAL HISTORY: nausea/vomiting/diarrhea COMPARISON: Abdomen Pelvis Wo Contrast dated 07/22/2018 TECHNIQUE: Axial [address] imaging of the abdomen and pelvis was performed without IV contrast. No IV contrast was given because of allergy, abnormal renal function, patient refusal or physician re quest. No oral contrast administered. All CT scans are performed using dose optimization technique as appropriate and may include automated exposure control or mA/KV adjustment according to patient size. FINDINGS: No suspicious findings in the lung bases. Borderline cardiomegaly is present with no lul cardial effusion. The liver, spleen and pancreas show no suspicious findings on non-contrast imaging. Gallbladder and b iliary tree are also without suspicious finding. Moderate severity bilateral hydronephrosis present. No obstructing or nonobstructing calculi seen. Re nal cyst present lateral mid right kidney unchanged from comparison. Bilateral perinephric stranding is present. No significant adrenal finding. Isodense renal masses and pyelonephritis cannot be exclu ded in the absence of IV contrast. Hernandez catheter present within the urinary bladder. No bladder ston e identified. No UVJ mass identifiable. Pelvic floor assessment is limited somewhat by right hip pros thesis spray artifact. No dilated bowel loops or bowel wall thickening. Appendicitis is not suspected. There is limitation i n bowel assessment due to the extent of motion. No free air, free fluid or inflammatory stranding. No hernia, mass or bulky lymphadenopathy. Bony degenerative changes are present. Advanced degenerative changes are present at the L1-2 and L3-4 disc spaces. IMPRESSION: Moderate severity bilateral hydronephrosis and hydroureter down to the UVJ level. No obs tructing calculus or mass identifiable. Perinephric stranding is present. Pyelonephritis is certainly a possibility. There could be blood or inflammatory debris is a source for the hydronephrosis. Hernandez catheter is in place in the bladder. No bladder wall thickening or mass identifiable. No acute GI process identifiable though assessment is limited due to the extent of motion. There is n o free air. Full assessment is limited is the absence of IV contrast.
[2020-11-23] MEDS ORDERED: CEFEPIME 2 GM VIAL ONE (21:50)
[2020-11-23] MEDS ORDERED: NA CHLORIDE 0.9% 500 ML ONE (21:51)
[2020-11-23] MEDS ORDERED: NA CHLORIDE 0.9% 2,000 ML ONE (21:51)
[2020-11-23 21:54] LABS: Urine Bacteria LOADED /HPF (NONE SEEN)
[2020-11-23 21:55] LABS: Urine RBC <5 /HPF (NONE SEEN); Urine Urothelial Cells <5 /HPF (NONE SEEN)
--- NOTE | 2020-11-23 22:21 | EDPHYS ---
Physician Documentation [facility] Name: Francheska Bolaños Jr Age: 65 yrs Sex: Male : 1955 Arrival Date: 11/23/2020 Time: 18:02 Bed 20 Private MD: ED Physician Kane Floyd HPI: 11/23 18:15 This 65 yrs old Black Male presents to ER via EMS with complaints of cp Nausea/Vomiting/Diarrhea. 18:15 The patient presents to the emergency department with vomiting, that is intermittent, 2 cp times since yesterday, diarrhea, that is intermittent. 18:15 Onset: The symptoms/episode began/occurred yesterday. Possible causes: unknown. cp Associated signs and symptoms: Pertinent positives: altered mental status, Pertinent negatives: constipation, fever, active vomiting. Unable to obtain HPI due to baseline dementia. Historical: - Allergies: 20:28 No Known Allergies; jm8 - PMHx: 20:28 CVA; GERD; High Cholesterol; Hypertension; Seizures; jm8 - Immunization history:: Adult Immunizations up to date. - Social history:: Smoking status: unknown. ROS: 18:20 Constitutional: Positive for poor PO intake, Negative for fever. cp 18:20 Neuro: Positive for altered mental status. 18:20 Cardiovascular: Negative for chest pain. cp 18:20 Respiratory: Negative for wheezing. 18:20 Abdomen/GI: Positive for vomiting, diarrhea. 18:20 Unable to obtain ROS due to altered mental status, baseline dementia. Exam: 20:20 Constitutional: The patient appears in no acute distress, non-toxic, well developed, cp well nourished. 20:20 Head/Face: Normocephalic, atraumatic. cp 20:20 Eyes: Periorbital structures: appear normal, Pupils: equal, round, and reactive to light and accomodation, Conjunctiva: normal, no exudate, no injection, Sclera: no appreciated abnormality, Lids and lashes: appear normal, bilaterally. 20:20 ENT: External ear(s): are unremarkable, Nose: is normal, Mouth: Lips: dry, Oral mucosa: dry, Posterior pharynx: Airway: no evidence of obstruction, patent. 20:20 Neck: ROM/movement: Meningeal signs: are not present, nuchal rigidity, is not appreciated. 20:20 Chest/axilla: Inspection: normal, Palpation: is normal, no crepitus, no tenderness. 20:20 Cardiovascular: Rate: normal, Rhythm: regular, Edema: is not appreciated, JVD: is not appreciated. 20:20 Respiratory: the patient does not display signs of respiratory distress, Respirations: normal, no use of accessory muscles, no retractions, labored breathing, is not present, Breath sounds: are clear throughout, no decreased breath sounds, no stridor, no wheezing. 20:20 Abdomen/GI: Inspection: gastrostomy tube noted LUQ, Bowel sounds: active, all quadrants, Palpation: soft, in all quadrants, nontender, in all quadrants, rebound tenderness, is not appreciated, involuntary guarding, is not appreciated. 20:20 Musculoskeletal/extremity: Exam is negative for decreased range of motion, deformity, injury. 20:20 Skin: cellulitis, is not appreciated, no rash present. 20:20 Neuro: Mentation: responsive to voice sleepy, Motor: moves all fours. 20:24 ECG was reviewed by the Attending Physician. Vital Signs: 18:24 BP 100 / 66; Pulse 89; Resp 20; Pulse Ox 100% ; 6 19:30 BP 75 / 65; Pulse 94; Resp 16; Pulse Ox 100% on R/A; [facility] 20:07 BP 109 / 77; Pulse 83; Resp 16; Pulse Ox 100% ; [facility] 21:27 BP 110 / 79; Pulse 74; Resp 16; Temp 98.1(O); Pulse Ox 98% on R/A; Weight 81.65 kg; [facility] Height 5 ft. 11 in. (180.34 cm); 21:27 Body Mass Index 25.10 (81.65 kg, 180.34 cm) [facility] MDM: 18:03 Patient medically screened. emerson 19:00 Differential diagnosis: gastritis, pancreatitis, viral gastroenteritis, cp gastroenteritis, dehydration, sepsis, UTI. 22:15 Data reviewed: vital signs, nurses notes, lab test result(s), EKG, radiologic studies, cp CT scan, plain films. 22:15 Test interpretation: by ED physician or midlevel provider: ECG, plain radiologic cp studies. Physician consultation: Alexandre Cannon MD was called at 22:15, was contacted at 22:15, regarding admission, to the medical/surgical unit. patient's condition. 11/23 18:10 Order name: Urine Microscopic Only; Complete Time: 22:13 cp 05/ 00:38 Interpretation: Normal except: UWBC 5-10; UBACT LOADED. cp 05/05 18:10 Order name: Basic Metabolic Panel; Complete Time: 20:47 cp 05/05 20:47 Interpretation: Normal except: CL 113; GLUC 137; BUN 61; CRE 6.07; GFR 11; CA 8.3. cp 05/05 18:10 Order name: CBC with Diff; Complete Time: 20:26 cp 05/05 21:24 Interpretation: Normal except: WBC 16.10; PLT 89; CONNOR% 83.0; LYM% 5.7; NEUT A 13.3; MNA cp 1.8. 05/ 18:10 Order name: LFT's; Complete Time: 20:47 cp / 21:49 Interpretation: Normal except: AST 129; ALT 82; BILIT 2.4; BILID 1.3; ALB 2.8; GLOB cp 4.5; A/G 0.6. 05/ 18:10 Order name: Magnesium; Complete Time: 20:47 cp 05/05 18:10 Order name: NT PRO-BNP; Complete Time: 20:47 cp 05/05 21:49 Interpretation: Abnormal: NT PRO-BNP 4993. cp 05/05 18:10 Order name: PT-INR; Complete Time: 20:26 cp 05/05 21:50 Interpretation: Abnormal: PT 14.8. cp 05/05 18:10 Order name: Troponin (emerg Dept Use Only); Complete Time: 20:47 cp 05/05 18:10 Order name: Lactate; Complete Time: 20:47 cp 05/05 21:50 Interpretation: Abnormal: LAC 3.0. cp 05/05 18:10 Order name: Procalcitonin; Complete Time: 21:21 cp 05/05 21:21 Interpretation: Abnormal: Procalcitonin 131.31. cp 05/05 18:10 Order name: Blood Culture Adult (2) cp 05/05 20:27 Order name: Occult Blood cp 05/05 20:27 Order name: Fecal Leukocyte Stain cp 05/05 20:27 Order name: Rotavirus Antigen cp 05/05 18:10 Order name: CT Head Brain wo Cont; Complete Time: 21:21 cp 05/05 18:10 Order name: XRAY Chest (1 view); Complete Time: 20:26 11/23 20:27 Order name: Stool Culture 11/23 20:27 Order name: CDIFF 11/23 20:37 Order name: Abdomen ; Complete Time: 21:21 [facility] 11/23 22:12 Order name: COVID-19 : Document "Date of Symptom Onset" if Symptomatic. 11/23 22:12 Order name: Urine Culture [facility] 11/23 22:13 Order name: CORONAVIRUS [facility] 11/24 00:26 Order name: Lactate Sepsis 2 HR Follow-up; Complete Time: 00:38 EDAR 11/24 00:38 Interpretation: Abnormal: LACTATE SEPSIS 2.7. 11/24 00:56 Order name: SARS-COV-2 RT PCR [facility] 11/23 18:10 Order name: Urine Dipstick-Ancillary (obtain specimen) 11/23 18:10 Order name: EKG; Complete Time: 18:12 11/23 18:10 Order name: Cardiac monitoring; Complete Time: 18:21 11/23 18:10 Order name: EKG - Nurse/Tech; Complete Time: 20:27 11/23 18:10 Order name: IV Saline Lock; Complete Time: 18:24 11/23 18:10 Order name: Labs collected and sent; Complete Time: 20:27 11/23 18:10 Order name: O2 Per Protocol; Complete Time: 18:21 11/23 18:10 Order name: O2 Sat Monitoring; Complete Time: 18:21 11/23 20:49 Order name: Hernandez; Complete Time: 21:25 cp EC:24 Rate is 80 beats/min. Rhythm is regular. ND interval is normal. QRS interval is normal. cp QT interval is prolonged at 408 msec. T waves are Inverted in leads II, III, aVF, V4, V5, V6. Interpreted by me. Reviewed by me. Administered Medications: Discontinued: NS 0.9% 1000 ml IV at 1 bolus Per protocol; 1000 mL bolus 18:28 Drug: NS 0.9% 1000 ml Route: IV; Rate: 1 bolus; Site: right forearm; tr6 18:28 Drug: Zofran (Ondansetron) 4 mg Route: IVP; Site: right forearm; tr6 21:40 Follow up: Response: No adverse reaction; Nausea is decreased 8 18:28 Drug: Pepcid (famotidine) 20 mg Route: IVP; Site: right forearm; tr6 21:39 Follow up: Response: No adverse reaction 8 21:38 Drug: NS 0.9% (30 ml/kg) 30 ml/kg Route: IV; Rate: bolus; Site: right antecubital; jm8 21:38 Drug: Cefepime 2 grams Route: IVPB; Rate: 200 ml/hr; Infused Over: 30 mins; Site: right jm8 antecubital; Disposition: 22:30 Chart complete. 11/24 09:30 Co-signature as Attending Physician, Kane Floyd MD I agree with the assessment and emerson plan of care. Disposition: 11/23/20 22:20 Hospitalization ordered by Alexandre Cannon for Inpatient Admission. Preliminary diagnosis are Acute tubulo-interstitial nephritis, Other sepsis, Altered mental status, unspecified, Acute kidney failure. - Bed requested for Telemetry/MedSurg (Inpatient). - Status is Inpatient Admission. 8 - Condition is Stable. - Problem is new. - Symptoms have improved. Signatures: Dispatcher [employer] EDMS Kane Floyd MD MD cha Lasagna, Tonya RN RN tl1 Kane Chacon PA PA Royal Castillo RN RN jm8 Renee Soto RN RN tr6 Corrections: (The following items were deleted from the chart) 11/23 20:37 18:12 Abdomen Pelvis W Con+CT.RAD.BRZ ordered. EDAR EDMS 20:47 20:47 Normal except: CL 113; GLUC 137; BUN 61; CRE 6.07; GFR 11. cp cp 21:24 20:26 Normal except: WBC 16.10; PLT 89; CONNOR% 83.0; LYM% 5.7; NEUT A 13.3. cp cp 21:49 21:49 Normal except: AST 129; ALT 82; BILIT 2.4; BILID 1.3; ALB 2.8; GLOB 4.5. cp cp 11/24 01:52 11/23 22:20 Hospitalization Ordered by Alexandre Cannon MD for Inpatient Admission. tl1 Preliminary diagnosis is Acute tubulo-interstitial nephritis; Other sepsis; Altered mental status, unspecified; Acute kidney failure. Bed requested for Telemetry/MedSurg (Inpatient). Status is Inpatient Admission. Condition is Stable. Problem is new. Symptoms have improved. cp 11/24 01:59 01:52 11/23/2020 22:20 Hospitalization Ordered by Alexandre Cannon MD for Inpatient tl1 Admission. Preliminary diagnosis is Acute tubulo-interstitial nephritis; Other sepsis; Altered mental status, unspecified; Acute kidney failure. Bed requested for Telemetry/MedSurg (Inpatient). Status is Inpatient Admission. Condition is Stable. Problem is new. Symptoms have improved. tl1 02:34 01:59 11/23/2020 22:20 Hospitalization Ordered by Alexandre Cannon MD for Inpatient jm8 Admission. Preliminary diagnosis is Acute tubulo-interstitial nephritis; Other sepsis; Altered mental status, unspecified; Acute kidney failure. Bed requested for Telemetry/MedSurg (Inpatient). Status is Inpatient Admission. Condition is Stable. Problem is new. Symptoms have improved. tl1
--- NOTE | 2020-11-23 22:21 | ER ---
Nurse's Notes [facility] Name: Francheska Bolaños Jr Age: 65 yrs Sex: Male : 1955 Arrival Date: 11/23/2020 Time: 18:02 Bed 20 Private MD: Diagnosis: Acute tubulo-interstitial nephritis;Other sepsis;Altered mental status, unspecified;Acute kidney failure Presentation: 11/23 18:24 Chief complaint: EMS states: n/v/d x2days. Coronavirus screen: Client denies travel out tr6 of the [place] in the last 14 days. Ebola Screen: Patient negative for fever greater than or equal to 101.5 degrees Fahrenheit, and additional compatible Ebola Virus Disease symptoms Patient denies exposure to infectious person. Patient denies travel to an Ebola-affected area in the 21 days before illness onset. Initial Sepsis Screen: Does the patient meet any 2 criteria? No. Patient's initial sepsis screen is negative. Does the patient have a suspected source of infection? No. Patient's initial sepsis screen is negative. Risk Assessment: Do you want to hurt yourself or someone else? Unable to obtain. 18:24 Method Of Arrival: EMS: [facility] tr6 18:24 Acuity: MAGI 3 tr6 20:06 Onset of symptoms was November 21, 2020. jm8 Triage Assessment: 18:24 General: Appears in no apparent distress. Behavior is calm, cooperative, appropriate tr6 for age. Pain: Unable to use pain scale. GI: Reports pt nonverbal per EMS report pt c/o n/v/d. Historical: - Allergies: 20:28 No Known Allergies; jm8 - PMHx: 20:28 CVA; GERD; High Cholesterol; Hypertension; Seizures; jm8 - Immunization history:: Adult Immunizations up to date. - Social history:: Smoking status: unknown. Screenin:34 Abuse screen: Denies threats or abuse. Denies injuries from another. Nutritional jm8 screening: No deficits noted. Tuberculosis screening: No symptoms or risk factors identified. Fall Risk Secondary diagnosis (15 points) impaired mobility, IV access (20 points). Assessment: 18:27 General: Appears see triage assessment. tr6 20:03 General: Appears in no apparent distress. comfortable, Behavior is calm, cooperative, jm8 appropriate for age. Pain: Denies pain. Neuro: Level of Consciousness is awake, Oriented to Reports nonverbal. Cardiovascular: No deficits noted. Respiratory: No deficits noted. Airway is patent Trachea midline Respiratory effort is even, unlabored. GI: Abdomen is round PEG tube in place, Site clean. Bowel sounds present X 4 quads. GI: Reports lower abdominal pain, upper abdominal pain, nausea, vomiting. Vital Signs: 18:24 BP 100 / 66; Pulse 89; Resp 20; Pulse Ox 100% ; tr6 19:30 BP 75 / 65; Pulse 94; Resp 16; Pulse Ox 100% on R/A; jm8 20:07 BP 109 / 77; Pulse 83; Resp 16; Pulse Ox 100% ; jm8 21:27 BP 110 / 79; Pulse 74; Resp 16; Temp 98.1(O); Pulse Ox 98% on R/A; Weight 81.65 kg; jm8 Height 5 ft. 11 in. (180.34 cm); 21:27 Body Mass Index 25.10 (81.65 kg, 180.34 cm) 8 ED Course: 18:02 Patient arrived in ED. aa5 18:03 Kane Floyd MD is Attending Physician. emerson 18:06 Kane Chacon PA is PHCP. cp 18:25 Triage completed. tr6 18:46 No provider procedures requiring assistance completed. Inserted saline lock: 24 gauge tr6 in left hand, using aseptic technique. 18:52 XRAY Chest (1 view) In Process Unspecified. EDMS 19:35 Arm band placed on right wrist. jm8 20:02 Inserted saline lock: 18 gauge in right upper arm, using aseptic technique. jm8 20:02 Patient has correct armband on for positive identification. Bed in low position. Call 8 light in reach. Side rails up X2. 20:27 EKG done, by ED staff, reviewed by Kane HAIRSTON. jm8 20:48 CT Head Brain wo Cont In Process Unspecified. EDMS 20:49 Abdomen In Process Unspecified. EDMS 21:00 Hernandez cath inserted, using sterile technique, 16 Fr., by ar, balloon inflated, to jm8 gravity drainage, urine specimen collected. 22:16 Alexandre Cannon MD is Hospitalizing Provider. cp 11/24 02:33 Patient admitted, IV remains in place. jm8 Administered Medications: Discontinued: NS 0.9% 1000 ml IV at 1 bolus Per protocol; 1000 mL bolus 11/23 18:28 Drug: NS 0.9% 1000 ml Route: IV; Rate: 1 bolus; Site: right forearm; tr6 18:28 Drug: Zofran (Ondansetron) 4 mg Route: IVP; Site: right forearm; tr6 21:40 Follow up: Response: No adverse reaction; Nausea is decreased [facility] 18:28 Drug: Pepcid (famotidine) 20 mg Route: IVP; Site: right forearm; tr6 21:39 Follow up: Response: No adverse reaction [facility] 21:38 Drug: NS 0.9% (30 ml/kg) 30 ml/kg Route: IV; Rate: bolus; Site: right antecubital; jm8 21:38 Drug: Cefepime 2 grams Route: IVPB; Rate: 200 ml/hr; Infused Over: 30 mins; Site: right 8 antecubital; Outcome: 22:20 Decision to Hospitalize by Provider. [place] 11/24 02:32 Admitted to Med/surg accompanied by nurse, via stretcher, with chart, Report called to chris Fernandez RN Condition: good Instructed on the need for admit. 02:34 Patient left the ED. chris Signatures: Dispatcher [employer] EDMS Kane Floyd MD MD cha Calderon, Audri, RN RN [email or web address] Kane Chacon PA PA Royal Fraire, RN RN [email or web address] Renee Soto RN RN tr6
[2020-11-23] MEDS ORDERED: ONDANSETRON 4 MG/2 ML VIAL IV PRN (22:25)
[2020-11-23] MEDS: NA CHLORIDE 0.9% 1,000 ML IV SCH (23:00)
[2020-11-24] MEDS ORDERED: NA CHLORIDE 0.9% 1,000 ML ONE (01:32)
[2020-11-24] MEDS: NA CHLORIDE 0.9% 1,000 ML IV SCH (03:21)
[2020-11-24 06:01] LABS: Absolute Lymphocytes (CBC) 0.7 K/uL (0.7-4.9); Basophils % 0.1 % (0-1.3); Hematocrit 46.8 % (39.6-49.0); Lymphocytes % 5.8 % (15.3-44.8); MPV 11.1 fL (7.6-11.3); RBC Red Blood Cell Count 4.77 M/uL (4.33-5.43)
[2020-11-24 06:26] LABS: Albumin 2.3 g/dL (3.4-5.0); Bilirubin Direct 1.4 mg/dL (0-0.2); Bilirubin Total 2.5 mg/dL (0.2-1.0); Potassium 4.8 mmol/L (3.5-5.1); Protein, Total 6.3 g/dL (6.4-8.2)
[2020-11-24] MEDS: D5W 1,000 ML IV SCH ×3 (06:47→21:06)
[2020-11-24 06:51] VITALS: BMI 29.2
[2020-11-24] MEDS ORDERED: D5W 1,000 ML IV ONE (07:05)
--- NOTE | 2020-11-24 07:18 | EKG ---
Test Date: 2020-11-23 Test Time: 20:19:37 Research Investigator: MEASUREMENT RESULTS: Intervals: Rate: 80 KS: 118 QRSD: 90 QT: 408 QTc: 470 [place]: P: 66 KS: 118 QRS: 3 T: -84 INTERPRETIVE STATEMENTS: * Pediatric ECG analysis * Sinus bradycardia with premature atrial complexes Left axis deviation Low voltage QRS Possible Inferior infarct T wave inversion in Lateral leads Borderline Prolonged QT Compared to ECG 01/04/2019 04:48:46 Left-axis deviation now present Low QRS voltage now present T-wave abnormality now present Sinus rhythm no longer present ST (T wave) deviation no longer present Possible ischemia no longer present Myocardial infarct finding still present Electronically Signed On 11-24-20 07:17:31 CDT by Ernesto Blue
[2020-11-24 08:39] LABS: Blood Morphology Comment NOT SEEN (NOT SEEN); Platelet Estimate DECR; White Blood Cell Scan OK (OK)
[2020-11-24] MEDS ORDERED: CEFEPIME 1 GM/10 ML SYR IV SCH (09:00)
[2020-11-24] MEDS: CEFEPIME/SWI 1gm 10 ML IV SCH (09:41)
--- NOTE | 2020-11-24 10:09 | P.CNS ---
Date of Consult: 11/24/20 Reason for Consult: VITALY Requesting Physician: Alexandre Cannon V Chief Complaint: N/V and Diarrhea History of Present Illness: 18:15 This 65 yrs old Black Male presents to ER via EMS with complaints of Nausea/Vomiting/Diarrhea. Allergies No Known Drug Allergies Allergy (Verified 01/07/17 02:30) Unknown Home medications list reviewed: Yes Home Medications: Aspirin [Aspirin EC 81 MG] 81 mg PO DAILY 11/24/20 Atorvastatin Calcium [Lipitor*] 20 mg PO DAILY 11/24/20 Carvedilol [Coreg] 3.125 mg PO BID 11/24/20 Cephalexin [Keflex*] 500 mg PO DAILY 11/24/20 Donepezil [Aricept*] 5 mg PO DAILY 11/24/20 Levetiracetam [Keppra] 1,000 mg PO BID 11/24/20 Losartan Potassium [Cozaar] 100 mg PO DAILY 11/24/20 Memantine HCl [Namenda*] 10 mg PO BID 11/24/20 - Past Medical/Surgical History Diabetic: No -: CVA -: HTN -: high Cholesterol -: Seizures -: GERD -: Femoral stent -: peg tube placement - Family History Mother Medical History: Stroke, Kidney disease Notes: On Dialysis - Social History Smoking Status: Unknown if ever smoked Alcohol use: No CD- Drugs: No Caffeine use: No Place of Residence: Home Review of Systems General: Weakness, Malaise Neurological: Weakness Physical Examination Temp Pulse Resp BP Pulse Ox 98.6 F 88 16 126/80 99 11/24/20 04:00 11/24/20 04:00 11/24/20 04:00 11/24/20 04:00 11/24/20 04:00 General: In no apparent distress, Cooperative HEENT: Atraumatic Neck: Supple Respiratory: Clear to auscultation bilaterally Cardiovascular: No edema, Regular rate/rhythm Gastrointestinal: Soft and benign, Non-distended Musculoskeletal: No clubbing, No contractures Integumentary: No rashes, No cyanosis Laboratory Data (last 24 hrs) 11/23/20 19:56: PT 14.8 H, INR 1.28 11/23/20 19:56: WBC 16.10 H, Hgb 16.2, Hct 48.0, Plt Count 89 L 11/23/20 19:56: Sodium 144, Potassium 4.7, BUN 61 H, Creatinine 6.07 H*, Glucose 137 H, Magnesium 2.2, Total Bilirubin 2.4 H, AST 129 H, ALT 82 H, Alkaline Phosphatase 54 Imagings Data: EXAM DESCRIPTION: RAD - Chest Single View - 11/23/2020 6:52 pm CLINICAL HISTORY: nausea/vomiting COMPARISON: Portable December 2018 TECHNIQUE: AP portable chest image was obtained 11/23/2020 6:52 pm . FINDINGS: Patient is in lordotic positioning and shallow inspiration. Interstitial pattern is similar to comparison. No peripheral mass or consolidation. Cardiac device overlies the lower left chest. Heart and vasculature are normal. No measurable pleural effusion and no pneumothorax. No acute bony abnormality seen. No acute aortic findings suspected. IMPRESSION: Limited portable chest with no acute cardiopulmonary process. EXAM DESCRIPTION: CT - Abdomen Pelvis Wo Contrast - 11/23/2020 8:50 pm CLINICAL HISTORY: nausea/vomiting/diarrhea COMPARISON: Abdomen Pelvis Wo Contrast dated 07/22/2018 TECHNIQUE: Axial [address] imaging of the abdomen and pelvis was performed without IV contrast. No IV contrast was given because of allergy, abnormal renal function, patient refusal or physician request. No oral contrast administered. All CT scans are performed using dose optimization technique as appropriate and may include automated exposure control or mA/KV adjustment according to patient size. FINDINGS: No suspicious findings in the lung bases. Borderline cardiomegaly is present with no pericardial effusion. The liver, spleen and pancreas show no suspicious findings on non-contrast imaging. Gallbladder and biliary tree are also without suspicious finding. Moderate severity bilateral hydronephrosis present. No obstructing or nonobstructing calculi seen. Renal cyst present lateral mid right kidney unchanged from comparison. Bilateral perinephric stranding is present. No significant adrenal finding. Isodense renal masses and pyelonephritis cannot be excluded in the absence of IV contrast. Duncan catheter present within the urinary bladder. No bladder stone identified. No UVJ mass identifiable. Pelvic floor assessment is limited somewhat by right hip prosthesis spray artifact. No dilated bowel loops or bowel wall thickening. Appendicitis is not suspected. There is limitation in bowel assessment due to the extent of motion. No free air, free fluid or inflammatory stranding. No hernia, mass or bulky lymphadenopathy. Bony degenerative changes are present. Advanced degenerative changes are present at the L1-2 and L3-4 disc spaces. IMPRESSION: Moderate severity bilateral hydronephrosis and hydroureter down to the UVJ level. No obstructing calculus or mass identifiable. Perinephric stranding is present. Pyelonephritis is certainly a possibility. There could be blood or inflammatory debris is a source for the hydronephrosis. Duncan catheter is in place in the bladder. No bladder wall thickening or mass identifiable. No acute GI process identifiable though assessment is limited due to the extent of motion. There is no free air. Full assessment is limited is the absence of IV contrast. Conclusions/Impression: VITALY likely due to obstruction CKD III BL Hydronephosis and hydroureter. Case reviewed with radiology and appears to be a bladder outlet obstruction. -No NSAIDs -Continue IVF -Continue duncan -May benefit from a urology evaluation Hypernatremia -Change IVF D5W Acidosis Hypocalcemia -Start Vitamin D Moderate malnutritrion -NPO -Advance diet as tolerated Acute cystitis Pyelonephritis -Continue Cefepime -Follow up culture Thank you kindly for the consultation.
[2020-11-24] MEDS: LACTOBACILLUS/ACIDOPHILUS TAB PO SCH ×3 (14:00→20:59)
[2020-11-24] MEDS: MEMANTINE HCL 10 MG TABLET PO SCH (20:59)
[2020-11-24] MEDS: levETIRAcetam 500 MG TAB PO SCH (20:59)
[2020-11-24] MEDS: carvediloL 3.125 MG TAB PO SCH (20:59)
--- NOTE | 2020-11-24 21:17 | P.HP ---
Certification for Inpatient Patient admitted to: Inpatient With expected LOS: >2 Midnights Practitioner: I am a practitioner with admitting privileges, knowledge of patient current condition, hospital course, and medical plan of care. Services: Services provided to patient in accordance with Admission requirements found in Title 42 Section 412.3 of the Code of Federal Regulations Patient History Date of Service: 11/24/20 Reason for admission: N/V and Diarrhea History of Present Illness: MR. JAEGER COMES WITH NAUSEA, VOMITING, DIARRHEA AND WEAKNESS. HIS CREATNINE IS 6.4 NOW DOWN TO 4.4. ON SCAN HE SHOWS HYDRONEPHROSIS. HE HAS LOW GRADE PROSTATE CANCER. HIS PSA HAS BEEN 5.5. DR. BURNS IS NOT ABLE TO DO BIOSPY OR SURGERY BECAUSE OF HIS POOR GENERAL CONDITION WITH HISTORY OF STROKE, SEIZURE AND RELATED DEEMNTIA. HE HAS A G TUBE AND GI DOCTOR WAS TO REMOVE IT BUT IT HAS NOT HAPPENED YET. HE HAS RETENTION OF URINE AND DR. BURNS HAS MARY CATHETER FOR HIM LIFETIME AND GIVES HIM KEFLEX ON DAILY BASIS TO PREVENT INFECTION. Allergies No Known Drug Allergies Allergy (Verified 01/07/17 02:30) Unknown Home medications list reviewed: Yes Home Medications: Aspirin [Aspirin EC 81 MG] 81 mg PO DAILY 11/24/20 Atorvastatin Calcium [Lipitor*] 20 mg PO DAILY 11/24/20 Carvedilol [Coreg] 3.125 mg PO BID 11/24/20 Cephalexin [Keflex*] 500 mg PO DAILY 11/24/20 Donepezil [Aricept*] 5 mg PO DAILY 11/24/20 Levetiracetam [Keppra] 1,000 mg PO BID 11/24/20 Losartan Potassium [Cozaar] 100 mg PO DAILY 11/24/20 Memantine HCl [Namenda*] 10 mg PO BID 11/24/20 - Past Medical/Surgical History Diabetic: No -: CVA -: HTN -: high Cholesterol -: Seizures -: GERD -: Femoral stent -: peg tube placement - Family History Mother -: Stroke, Kidney disease Notes: On Dialysis - Social History Smoking Status: Unknown if ever smoked Alcohol use: No CD- Drugs: No Caffeine use: No Place of Residence: Home Review of Systems 10-point ROS is otherwise unremarkable General: Weakness, Malaise Physical Examination - Vital Signs Temperature: 100.2 F Blood Pressure: 111/61 Pulse: 79 Respirations: 20 Pulse Ox (%): 100 - Physical Exam General: Oriented x2, Mild distress HEENT: Atraumatic, PERRLA, Mucous membr. moist/pink, EOMI, Sclerae nonicteric Neck: Supple, 2+ carotid pulse no bruit, No LAD, Without JVD or thyroid abnormality Respiratory: Clear to auscultation bilaterally, Normal air movement Cardiovascular: Regular rate/rhythm, Normal S1 S2 Gastrointestinal: Normal bowel sounds, No tenderness Musculoskeletal: No tenderness Integumentary: No rashes Neurological: Normal gait, Normal speech, Normal strength at 5/5 x4 extr, Normal tone, Normal affect Lymphatics: No axilla or inguinal lymphadenopathy - Studies Microbiology Data (last 24 hrs): 11/23/20 19:40 Blood - Blood Blood Culture Gram Stain - Final 11/23/20 19:40 Blood - Blood Gram Stain - Final 11/23/20 19:56 Blood - Blood Blood Culture Gram Stain - Final 11/23/20 19:56 Blood - Blood Gram Stain - Final 11/23/20 20:27 Stool Stool Occult Blood (EZEQUIEL) - Final SENIOR STAFF PSYCHOLOGIST Assessment and Plan - Problems (Diagnosis) (1) Acute on chronic renal failure Current Visit: Yes Status: Acute Plan: HIS BASE LINE CREATININE IS ABOUT 1.62 IN JUL 2020. IT HAS NOW RAISED TO 6 AND DOWN TO 4.4 NOW. 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 HE WILL BEENEFIT BY SUPRAPUBIC CATHTER. DR. BURNS IS NO MORE WORKING HERE. HE MAY BENEFIT BY DR. Jose J PANDYA UROLOGY. Qualifiers: Chronic kidney disease stage: stage 4 (severe) (2) Elevated PSA Current Visit: Yes Status: Acute Plan: CHRONIC AND MAY HAVE LOW GRADE CANCER. DR. BURNS AND FAMILY DID NOT PURSUE THIS FURTHER HIS CONDITION IS POOR. (3) Urinary retention Current Visit: No Status: Chronic (4) CVA (cerebral vascular accident) Onset Date: Unknown Current Visit: No Status: Chronic Plan: STABLE. NO SEIZURES HE TAKES MEDS. Qualifiers: CVA mechanism: embolism Precerebral and cerebral artery: unspecified precerebral artery Qualified Code(s): I63.10 - Cerebral infarction due to embolism of unspecified precerebral artery (5) Seizure Onset Date: 01/07/17 Current Visit: No Status: Chronic Plan: CONTINUE KEPPRA. - Advance Directives Does patient have a Living Will: No Does patient have a Durable POA for Healthcare: No
[2020-11-25] MEDS: D5W 1,000 ML IV SCH ×4 (02:10→23:00)
[2020-11-25] MEDS: DONEPEZIL HCL 5 MG TAB PO SCH (09:00)
[2020-11-25] MEDS: MEMANTINE HCL 10 MG TABLET PO SCH ×2 (09:27→21:01)
[2020-11-25] MEDS: carvediloL 3.125 MG TAB PO SCH ×2 (09:27→21:01)
[2020-11-25] MEDS: CEFEPIME/SWI 1gm 10 ML IV SCH (09:27)
[2020-11-25] MEDS: VITAMIN D 5,000 UNIT CAP PO SCH (09:28)
[2020-11-25] MEDS: ATORVASTATIN 20 MG TAB PO SCH (09:28)
[2020-11-25] MEDS: LACTOBACILLUS/ACIDOPHILUS TAB PO SCH ×3 (09:28→21:01)
[2020-11-25] MEDS: levETIRAcetam 500 MG TAB PO SCH ×2 (09:30→21:01)
[2020-11-25] MEDS: CALCITROL 0.25 MCG CAP PO SCH (09:30)
--- NOTE | 2020-11-25 19:35 | P.PN ---
Subjective Date of Service: 11/25/20 Chief Complaint: N/V and Diarrhea Subjective: Improving HE IS MUCH MORE AWAKE. HE IS TOLERATING FOOD. FAMILY IS TRYING TO GET G TUBE REMOVAL BUT GI CENTER NEEDED COVID TEST BEFORE THE VISIT THEY NEVER WENT THERE. I TALKED TO DR. GOMEZ AND HE WILL DO SO ON SATURDAY. HE IS ABLE TO EAT FOR LONG DURATION. HIS DAUGHTER IS AWARE OF G TUBE REMOVAL. THEY ALSO HAS BEEN TO DR. BURNS FOR YEARS AND DECISION WAS TO CONTINUE MARY BUT I SUSPECT SUPRAPUBIC CATH WILL BE A BETTER IDEA. I WILL CONSULT DR. PANDYA TO GET SECOND OPINION. Review of Systems General: Weakness Physical Examination - Vital Signs Temperature: 99.2 F Blood Pressure: 110/70 Pulse: 72 Respirations: 16 Pulse Ox (%): 99 - Physical Exam General: Oriented x2, Mild distress, Confused (AT BASELINE SINCE MANY STROKES. ) HEENT: Atraumatic, PERRLA, EOMI Neck: Supple, JVD not distended Respiratory: Clear to auscultation bilaterally, Normal air movement Cardiovascular: Regular rate/rhythm, Normal S1 S2 Gastrointestinal: Normal bowel sounds, No tenderness Musculoskeletal: No tenderness Integumentary: No rashes Neurological: Normal speech, Normal tone, Normal affect Lymphatics: No axilla or inguinal lymphadenopathy - Studies Microbiology Data (last 24 hrs): 11/23/20 19:40 Blood - Blood Blood Culture Gram Stain - Final 11/23/20 19:40 Blood - Blood Gram Stain - Final 11/23/20 19:56 Blood - Blood Blood Culture Gram Stain - Final 11/23/20 19:56 Blood - Blood Gram Stain - Final Medications List Reviewed: Yes Assessment And Plan - Current Problems (Diagnosis) (1) Acute on chronic renal failure Current Visit: Yes Status: Acute Plan: HIS BASE LINE CREATININE IS ABOUT 1.62 IN JUL 2020. IT HAS NOW RAISED TO 6 AND DOWN TO 4.4 NOW. 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 HE WILL BEENEFIT BY SUPRAPUBIC CATHTER. DR. BURNS IS NO MORE WORKING HERE. HE MAY BENEFIT BY DR. Jose J PANDYA UROLOGY. FAMILY IS TRYING TO GET G TUBE REMOVAL BUT GI CENTER NEEDED COVID TEST BEFORE THE VISIT THEY NEVER WENT THERE. I TALKED TO DR. GOMEZ AND HE WILL DO SO ON SATURDAY. HE IS ABLE TO EAT FOR LONG DURATION. HIS DAUGHTER IS AWARE OF G TUBE REMOVAL. THEY ALSO HAS BEEN TO DR. BURNS FOR YEARS AND DECISION WAS TO CONTINUE MARY BUT I SUSPECT SUPRAPUBIC CATH WILL BE A BETTER IDEA. I WILL CONSULT DR. PANDYA TO GET SECOND OPINION Qualifiers: Chronic kidney disease stage: stage 4 (severe) (2) Elevated PSA Current Visit: Yes Status: Acute Plan: CHRONIC AND MAY HAVE LOW GRADE CANCER. DR. BURNS AND FAMILY DID NOT PURSUE THIS FURTHER HIS CONDITION IS POOR. (3) Urinary retention Current Visit: No Status: Chronic (4) CVA (cerebral vascular accident) Onset Date: Unknown Current Visit: No Status: Chronic Plan: STABLE. NO SEIZURES HE TAKES MEDS. Qualifiers: CVA mechanism: embolism Precerebral and cerebral artery: unspecified precerebral artery Qualified Code(s): I63.10 - Cerebral infarction due to embolism of unspecified precerebral artery (5) Seizure Onset Date: 01/07/17 Current Visit: No Status: Chronic Plan: CONTINUE KEPPRA.
--- NOTE | 2020-11-25 21:25 | P.PN ---
Date of Service: 11/25/20 Vital Signs Temp Pulse Resp BP Pulse Ox 98.8 F 71 18 111/66 94 11/25/20 20:00 11/25/20 21:01 11/25/20 20:00 11/25/20 21:01 11/25/20 20:00 Medications Atorvastatin Calcium (Atorvastatin 20 Mg Tab) 20 mg PO DAILY [facility] Last Admin: 11/25/20 09:28 Dose: 20 mg Documented by: Calcitriol (Calcitrol 0.25 Mcg Cap) 0.5 mcg PO DAILY [facility] Last Admin: 11/25/20 09:30 Dose: 0.5 mcg Documented by: Carvedilol (Carvedilol 3.125 Mg Tab) 3.125 mg PO BID [facility] Last Admin: 11/25/20 21:01 Dose: 3.125 mg Documented by: Cholecalciferol (Vitamin D 5,000 Unit Cap) 5,000 unit PO DAILY [facility] Last Admin: 11/25/20 09:28 Dose: 5,000 unit Documented by: Donepezil HCl (Donepezil Hcl 5 Mg Tab) 5 mg PO DAILY [facility] Last Admin: 11/25/20 09:00 Dose: 5 mg Documented by: Enoxaparin Sodium (Enoxaparin 30 Mg/0.3 Ml) 30 mg SQ DAILY 5 PM [facility] Dextrose/Water (Dextrose In Water (1-Liter)) 1,000 mls @ 100 mls/hr IV .Q10H [facility] Last Admin: 11/25/20 19:52 Dose: 1,000 mls Documented by: Cefepime HCl (Maxipime 1 Gm/10 Ml Ivp) 10 mls @ 200 mls/hr IV DAILY [facility] Last Admin: 11/25/20 09:27 Dose: 10 mls Documented by: Lactobacillus Acidoph/Bulgaricus (Lactobacillus/Acidophilus Tab) 1 tab PO TID [facility] Last Admin: 11/25/20 21:01 Dose: 1 tab Documented by: Levetiracetam (Levetiracetam 500 Mg Tab) 1,000 mg PO BID [facility] Last Admin: 11/25/20 21:01 Dose: 1,000 mg Documented by: Memantine (Memantine Hcl 10 Mg Tablet) 10 mg PO BID [facility] Last Admin: 11/25/20 21:01 Dose: 10 mg Documented by: Ondansetron HCl (Ondansetron 4 Mg/2 Ml Vial) 4 mg IV Q6H PRN PRN Reason: NAUSEA / VOMITING Microbiology Results 11/23/20 21:17 Clean Catch Urine [place] Count - Preliminary >100,000 CFU/ML. 11/23/20 21:17 Clean Catch Urine - Preliminary 11/23/20 19:40 Blood - Blood Aerobic Blood Culture - Preliminary 11/23/20 19:40 Blood - Blood Blood Culture Gram Stain - Final 11/23/20 19:40 Blood - Blood Anaerobic Blood Culture - Preliminary 11/23/20 19:40 Blood - Blood Gram Stain - Final 11/23/20 19:56 Blood - Blood Aerobic Blood Culture - Preliminary 11/23/20 19:56 Blood - Blood Blood Culture Gram Stain - Final 11/23/20 19:56 Blood - Blood Anaerobic Blood Culture - Preliminary 11/23/20 19:56 Blood - Blood Gram Stain - Final 11/23/20 20:27 Stool Stool Occult Blood (EZEQUIEL) - Final RN REHABILITATION Assessment/ Plan: Nephrology No acute cardiac or pulmonary complaints. No CP or SOB. No acute events overnight. Vitals, medications, blood work and imaging reviewed in the chart. General: In no apparent distress, Cooperative HEENT: Atraumatic Neck: Supple Respiratory: Clear to auscultation bilaterally Cardiovascular: No edema, Regular rate/rhythm Gastrointestinal: Soft and benign, Non-distended Musculoskeletal: No clubbing, No contractures Integumentary: No rashes, No cyanosis Laboratory Data (last 24 hrs) 11/23/20 19:56: PT 14.8 H, INR 1.28 11/23/20 19:56: WBC 16.10 H, Hgb 16.2, Hct 48.0, Plt Count 89 L 11/23/20 19:56: Sodium 144, Potassium 4.7, BUN 61 H, Creatinine 6.07 H*, Glucose 137 H, Magnesium 2.2, Total Bilirubin 2.4 H, AST 129 H, ALT 82 H, Alkaline Phosphatase 54 Imagings Data: EXAM DESCRIPTION: RAD - Chest Single View - 11/23/2020 6:52 pm CLINICAL HISTORY: nausea/vomiting COMPARISON: Portable December 2018 TECHNIQUE: AP portable chest image was obtained 11/23/2020 6:52 pm . FINDINGS: Patient is in lordotic positioning and shallow inspiration. Interstitial pattern is similar to comparison. No peripheral mass or consolidation. Cardiac device overlies the lower left chest. Heart and vasculature are normal. No measurable pleural effusion and no pneumothorax. No acute bony abnormality seen. No acute aortic findings suspected. IMPRESSION: Limited portable chest with no acute cardiopulmonary process. EXAM DESCRIPTION: CT - Abdomen Pelvis Wo Contrast - 11/23/2020 8:50 pm CLINICAL HISTORY: nausea/vomiting/diarrhea COMPARISON: Abdomen Pelvis Wo Contrast dated 07/22/2018 TECHNIQUE: Axial [address] imaging of the abdomen and pelvis was performed without IV contrast. No IV contrast was given because of allergy, abnormal renal function, patient refusal or physician request. No oral contrast administered. All CT scans are performed using dose optimization technique as appropriate and may include automated exposure control or mA/KV adjustment according to patient size. FINDINGS: No suspicious findings in the lung bases. Borderline cardiomegaly is present with no pericardial effusion. The liver, spleen and pancreas show no suspicious findings on non-contrast imaging. Gallbladder and biliary tree are also without suspicious finding. Moderate severity bilateral hydronephrosis present. No obstructing or nonobstructing calculi seen. Renal cyst present lateral mid right kidney unchanged from comparison. Bilateral perinephric stranding is present. No significant adrenal finding. Isodense renal masses and pyelonephritis cannot be excluded in the absence of IV contrast. Duncan catheter present within the urinary bladder. No bladder stone identified. No UVJ mass identifiable. Pelvic floor assessment is limited somewhat by right hip prosthesis spray artifact. No dilated bowel loops or bowel wall thickening. Appendicitis is not suspected. There is limitation in bowel assessment due to the extent of motion. No free air, free fluid or inflammatory stranding. No hernia, mass or bulky lymphadenopathy. Bony degenerative changes are present. Advanced degenerative changes are present at the L1-2 and L3-4 disc spaces. IMPRESSION: Moderate severity bilateral hydronephrosis and hydroureter down to the UVJ level. No obstructing calculus or mass identifiable. Perinephric stranding is present. Pyelonephritis is certainly a possibility. There could be blood or inflammatory debris is a source for the hydronephrosis. Duncan catheter is in place in the bladder. No bladder wall thickening or mass identifiable. No acute GI process identifiable though assessment is limited due to the extent of motion. There is no free air. Full assessment is limited is the absence of IV contrast. Conclusions/Impression: VITALY likely due to obstruction CKD III BL Hydronephosis and hydroureter. Case reviewed with radiology and appears to be a bladder outlet obstruction. -No NSAIDs -Continue IVF -Continue duncan -May benefit from a urology evaluation Hypernatremia -Continue IVF Acidosis Hypocalcemia -Continue Vitamin D Moderate malnutritrion -Advance diet as tolerated Acute cystitis Pyelonephritis -Continue Cefepime -Follow up culture
[2020-11-26 06:12] LABS: Absolute Lymphocytes (CBC) 1.4 K/uL (0.7-4.9); Basophils % 0.6 % (0-1.3); Hematocrit 43.4 % (39.6-49.0); Lymphocytes % 12.2 % (15.3-44.8); MPV 11.2 fL (7.6-11.3); RBC Red Blood Cell Count 4.51 M/uL (4.33-5.43)
[2020-11-26 06:30] LABS: Albumin 2.1 g/dL (3.4-5.0); Bilirubin Direct 0.4 mg/dL (0-0.2); Bilirubin Total 1.4 mg/dL (0.2-1.0); Potassium 3.6 mmol/L (3.5-5.1); Protein, Total 6.5 g/dL (6.4-8.2); Uric Acid 5.6 mg/dL (3.5-7.2)
[2020-11-26] MEDS: DONEPEZIL HCL 5 MG TAB PO SCH (09:00)
[2020-11-26] MEDS: D5W 1,000 ML IV SCH ×2 (09:00→17:25)
[2020-11-26] MEDS: ATORVASTATIN 20 MG TAB PO SCH (10:28)
[2020-11-26] MEDS: levETIRAcetam 500 MG TAB PO SCH ×2 (10:28→20:26)
[2020-11-26] MEDS: VITAMIN D 5,000 UNIT CAP PO SCH (10:28)
[2020-11-26] MEDS ORDERED: POTASSIUM CL SA 10 MEQ TAB PO ONE (10:28)
[2020-11-26] MEDS: carvediloL 3.125 MG TAB PO SCH ×2 (10:29→20:26)
[2020-11-26] MEDS: MEMANTINE HCL 10 MG TABLET PO SCH ×2 (10:29→20:26)
[2020-11-26] MEDS: LACTOBACILLUS/ACIDOPHILUS TAB PO SCH ×3 (10:29→20:26)
[2020-11-26] MEDS: CEFEPIME/SWI 1gm 10 ML IV SCH ×2 (10:29→20:26)
[2020-11-26] MEDS: CALCITROL 0.25 MCG CAP PO SCH (10:29)
--- NOTE | 2020-11-26 10:31 | P.PN ---
Date of Service: 11/26/20 Vital Signs Temp Pulse Resp BP Pulse Ox 98.0 F 64 24 H 107/80 100 11/26/20 08:00 11/26/20 08:00 11/26/20 08:00 11/26/20 08:00 11/26/20 08:00 Medications Atorvastatin Calcium (Atorvastatin 20 Mg Tab) 20 mg PO DAILY [facility] Last Admin: 11/25/20 09:28 Dose: 20 mg Documented by: Calcitriol (Calcitrol 0.25 Mcg Cap) 0.5 mcg PO DAILY [facility] Last Admin: 11/25/20 09:30 Dose: 0.5 mcg Documented by: Carvedilol (Carvedilol 3.125 Mg Tab) 3.125 mg PO BID [facility] Last Admin: 11/25/20 21:01 Dose: 3.125 mg Documented by: Cholecalciferol (Vitamin D 5,000 Unit Cap) 5,000 unit PO DAILY [facility] Last Admin: 11/25/20 09:28 Dose: 5,000 unit Documented by: Donepezil HCl (Donepezil Hcl 5 Mg Tab) 5 mg PO DAILY [facility] Last Admin: 11/25/20 09:00 Dose: 5 mg Documented by: Enoxaparin Sodium (Enoxaparin 30 Mg/0.3 Ml) 30 mg SQ DAILY 5 PM [facility] Dextrose/Water (Dextrose In Water (1-Liter)) 1,000 mls @ 100 mls/hr IV .Q10H [facility] Last Admin: 11/25/20 23:00 Dose: Not Given Documented by: Cefepime HCl (Maxipime 1 Gm/10 Ml Ivp) 10 mls @ 200 mls/hr IV DAILY [facility] Last Admin: 11/25/20 09:27 Dose: 10 mls Documented by: Lactobacillus Acidoph/Bulgaricus (Lactobacillus/Acidophilus Tab) 1 tab PO TID [facility] Last Admin: 11/25/20 21:01 Dose: 1 tab Documented by: Levetiracetam (Levetiracetam 500 Mg Tab) 1,000 mg PO BID [facility] Last Admin: 11/25/20 21:01 Dose: 1,000 mg Documented by: Memantine (Memantine Hcl 10 Mg Tablet) 10 mg PO BID [facility] Last Admin: 11/25/20 21:01 Dose: 10 mg Documented by: Ondansetron HCl (Ondansetron 4 Mg/2 Ml Vial) 4 mg IV Q6H PRN PRN Reason: NAUSEA / VOMITING Microbiology Results 11/23/20 21:17 Clean Catch Urine [place] Count - Final >100,000 CFU/ML. 11/23/20 21:17 Clean Catch Urine - Final Proteus Mirabilis 11/23/20 19:40 Blood - Blood Aerobic Blood Culture - Final Proteus Mirabilis 11/23/20 19:40 Blood - Blood Blood Culture Gram Stain - Final 11/23/20 19:40 Blood - Blood Anaerobic Blood Culture - Final Proteus Mirabilis 11/23/20 19:40 Blood - Blood Gram Stain - Final 11/23/20 19:56 Blood - Blood Aerobic Blood Culture - Final Proteus Mirabilis 11/23/20 19:56 Blood - Blood Blood Culture Gram Stain - Final 11/23/20 19:56 Blood - Blood Anaerobic Blood Culture - Final Proteus Mirabilis 11/23/20 19:56 Blood - Blood Gram Stain - Final 11/23/20 20:27 Stool Stool Occult Blood (EZEQUIEL) - Final [employer] Assessment/ Plan: Nephrology No acute cardiac or pulmonary complaints. No CP or SOB. No acute events overnight. Vitals, medications, blood work and imaging reviewed in the chart. General: In no apparent distress, Cooperative HEENT: Atraumatic Neck: Supple Respiratory: Clear to auscultation bilaterally Cardiovascular: No edema, Regular rate/rhythm Gastrointestinal: Soft and benign, Non-distended Musculoskeletal: No clubbing, No contractures Integumentary: No rashes, No cyanosis Laboratory Data (last 24 hrs) 11/23/20 19:56: PT 14.8 H, INR 1.28 11/23/20 19:56: WBC 16.10 H, Hgb 16.2, Hct 48.0, Plt Count 89 L 11/23/20 19:56: Sodium 144, Potassium 4.7, BUN 61 H, Creatinine 6.07 H*, Glucose 137 H, Magnesium 2.2, Total Bilirubin 2.4 H, AST 129 H, ALT 82 H, Alkaline Phosphatase 54 Imagings Data: EXAM DESCRIPTION: RAD - Chest Single View - 11/23/2020 6:52 pm CLINICAL HISTORY: nausea/vomiting COMPARISON: Portable December 2018 TECHNIQUE: AP portable chest image was obtained 11/23/2020 6:52 pm . FINDINGS: Patient is in lordotic positioning and shallow inspiration. Interstitial pattern is similar to comparison. No peripheral mass or consolidation. Cardiac device overlies the lower left chest. Heart and vasculature are normal. No measurable pleural effusion and no pneumothorax. No acute bony abnormality seen. No acute aortic findings suspected. IMPRESSION: Limited portable chest with no acute cardiopulmonary process. EXAM DESCRIPTION: CT - Abdomen Pelvis Wo Contrast - 11/23/2020 8:50 pm CLINICAL HISTORY: nausea/vomiting/diarrhea COMPARISON: Abdomen Pelvis Wo Contrast dated 07/22/2018 TECHNIQUE: Axial [address] imaging of the abdomen and pelvis was performed without IV contrast. No IV contrast was given because of allergy, abnormal renal function, patient refusal or physician request. No oral contrast administered. All CT scans are performed using dose optimization technique as appropriate and may include automated exposure control or mA/KV adjustment according to patient size. FINDINGS: No suspicious findings in the lung bases. Borderline cardiomegaly is present with no pericardial effusion. The liver, spleen and pancreas show no suspicious findings on non-contrast imaging. Gallbladder and biliary tree are also without suspicious finding. Moderate severity bilateral hydronephrosis present. No obstructing or nonobstructing calculi seen. Renal cyst present lateral mid right kidney unchanged from comparison. Bilateral perinephric stranding is present. No significant adrenal finding. Isodense renal masses and pyelonephritis cannot be excluded in the absence of IV contrast. Duncan catheter present within the urinary bladder. No bladder stone identified. No UVJ mass identifiable. Pelvic floor assessment is limited somewhat by right hip prosthesis spray artifact. No dilated bowel loops or bowel wall thickening. Appendicitis is not suspected. There is limitation in bowel assessment due to the extent of motion. No free air, free fluid or inflammatory stranding. No hernia, mass or bulky lymphadenopathy. Bony degenerative changes are present. Advanced degenerative changes are present at the L1-2 and L3-4 disc spaces. IMPRESSION: Moderate severity bilateral hydronephrosis and hydroureter down to the UVJ level. No obstructing calculus or mass identifiable. Perinephric stranding is present. Pyelonephritis is certainly a possibility. There could be blood or inflammatory debris is a source for the hydronephrosis. Duncan catheter is in place in the bladder. No bladder wall thickening or mass identifiable. No acute GI process identifiable though assessment is limited due to the extent of motion. There is no free air. Full assessment is limited is the absence of IV contrast. Conclusions/Impression: VITALY likely due to obstruction CKD III BL Hydronephosis and hydroureter. Case reviewed with radiology and appears to b e a bladder outlet obstruction. -No NSAIDs -Continue IVF -Continue duncan -May benefit from a urology evaluation Hypernatremia -Continue IVF Hypokalemia -Replete oral potassium Acidosis Hypocalcemia -Continue Vitamin D Moderate malnutritrion -Advance diet as tolerated -Continue probiotic Acute cystitis Pyelonephritis Proteus Mirabilis bacteremia -Increase Cefepime 1g q12 due to improving renal fx
--- NOTE | 2020-11-26 10:44 | P.PN ---
Subjective Date of Service: 11/26/20 Chief Complaint: N/V and Diarrhea Subjective: Improving HE IS MUCH MORE AWAKE. HE IS TOLERATING FOOD. FAMILY IS TRYING TO GET G TUBE REMOVAL BUT GI [facility]ENTER NEEDED COVID TEST BEFORE THE VISIT THEY NEVER WENT THERE. I TALKED TO DR. GOMEZ AND HE WILL DO SO ON SATURDAY. HE IS ABLE TO EAT FOR LONG DURATION. HIS DAUGHTER IS AWARE OF G TUBE REMOVAL. THEY ALSO HAS BEEN TO DR. BURNS FOR YEARS AND DECISION WAS TO CONTINUE MARY BUT I SUSPECT SUPRAPUBIC CATH WILL BE A BETTER IDEA. I WILL CONSULT DR. PANDYA TO GET SECOND OPINION. 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 NO ACUTE COMPLAINTS. CAN'T COME UNTIL SATURDAY. Review of Systems 10-point ROS is otherwise unremarkable General: Weakness Physical Examination - Vital Signs Temperature: 98.0 F Blood Pressure: 107/80 Pulse: 64 Respirations: 24 Pulse Ox (%): 100 - Physical Exam General: Oriented x2, Mild distress, Obese HEENT: Atraumatic, PERRLA, EOMI Neck: Supple, JVD not distended Respiratory: Clear to auscultation bilaterally, Normal air movement Cardiovascular: Regular rate/rhythm, Normal S1 S2 Gastrointestinal: Normal bowel sounds, No tenderness, Other (G TUBE IN PLACE, NOT FUNCTIONAL FOR YEARS. NEEDS TO COME OUT.) Musculoskeletal: No tenderness Integumentary: No rashes Neurological: Normal speech, Normal tone, Normal affect Lymphatics: No axilla or inguinal lymphadenopathy - Studies Microbiology Data (last 24 hrs): 11/23/20 21:17 Clean Catch Urine [place] Count - Final >100,000 CFU/ML. 11/23/20 21:17 Clean Catch Urine - Final Proteus Mirabilis 11/23/20 19:40 Blood - Blood Aerobic Blood Culture - Final Proteus Mirabilis 11/23/20 19:40 Blood - Blood Blood Culture Gram Stain - Final 11/23/20 19:40 Blood - Blood Anaerobic Blood Culture - Final Proteus Mirabilis 11/23/20 19:40 Blood - Blood Gram Stain - Final 11/23/20 19:56 Blood - Blood Aerobic Blood Culture - Final Proteus Mirabilis 11/23/20 19:56 Blood - Blood Blood Culture Gram Stain - Final 11/23/20 19:56 Blood - Blood Anaerobic Blood Culture - Final Proteus Mirabilis 11/23/20 19:56 Blood - Blood Gram Stain - Final Medications List Reviewed: Yes Assessment And Plan - Current Problems (Diagnosis) (1) Acute on chronic renal failure Current Visit: Yes Status: Acute Plan: HIS BASE LINE CREATININE IS ABOUT 1.62 IN JUL 2020. IT HAS NOW RAISED TO 6 AND DOWN TO 4.4 NOW. 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 HE WILL BEENEFIT BY SUPRAPUBIC CATHTER. DR. BURNS IS NO MORE WORKING HERE. HE MAY BENEFIT BY DR. Jose J PANDYA UROLOGY. FAMILY IS TRYING TO GET G TUBE REMOVAL BUT GI CENTER NEEDED COVID TEST BEFORE THE VISIT THEY NEVER WENT THERE. I TALKED TO DR. GOMEZ AND HE WILL DO SO ON SATURDAY. HE IS ABLE TO EAT FOR LONG DURATION. HIS DAUGHTER IS AWARE OF G TUBE REMOVAL. THEY ALSO HAS BEEN TO DR. BURNS FOR YEARS AND DECISION WAS TO CONTINUE MARY BUT I SUSPECT SUPRAPUBIC CATH WILL BE A BETTER IDEA. I WILL CONSULT DR. PANDYA TO GET SECOND OPINION CREAT DOWN TO 2.1. WILL DO OUTPATIENT SUPRAPUBIC CATH OR HERE IF DR. PANDYA CAN DO THIS WEEK. Qualifiers: Chronic kidney disease stage: stage 4 (severe) (2) Elevated PSA Current Visit: Yes Status: Acute Plan: CHRONIC AND MAY HAVE LOW GRADE CANCER. DR. BURNS AND FAMILY DID NOT PURSUE THIS FURTHER HIS CONDITION IS POOR. (3) Urinary retention Current Visit: No Status: Chronic (4) CVA (cerebral vascular accident) Onset Date: Unknown Current Visit: No Status: Chronic Plan: STABLE. NO SEIZURES HE TAKES MEDS. PROGNOSIS IS OVERALL GUARDED WITH MULTIPLE ISSUES. Qualifiers: CVA mechanism: embolism Precerebral and cerebral artery: unspecified precerebral artery Qualified Code(s): I63.10 - Cerebral infarction due to embolism of unspecified precerebral artery (5) Seizure Onset Date: 01/07/17 Current Visit: No Status: Chronic Plan: CONTINUE KEPPRA.
[2020-11-26 11:44] LABS: Urine Appearance CLEAR (Clear); Urine Bilirubin NEGATIVE (Negative); Urine Blood 2+ (Negative); Urine Color YELLOW (Yellow); Urine Glucose NEGATIVE (Negative); Urine Protein TRACE (Negative); Urine Specific Gravity 1.015 (1.005-1.030); Urine pH 5.5 (5.0-7.0)
[2020-11-26 11:53] LABS: Urine Bacteria <20 /HPF (NONE SEEN); Urine RBC <5 /HPF (NONE SEEN)
[2020-11-26] MEDS: ENOXAPARIN 30 MG/0.3 ML SQ SCH (17:23)
[2020-11-27] MEDS: D5W 1,000 ML IV SCH ×2 (03:25→16:01)
[2020-11-27 07:04] LABS: Absolute Lymphocytes (CBC) 1.5 K/uL (0.7-4.9); Basophils % 0.5 % (0-1.3); Hematocrit 44.9 % (39.6-49.0); Lymphocytes % 12.6 % (15.3-44.8); MPV 11.1 fL (7.6-11.3); RBC Red Blood Cell Count 4.61 M/uL (4.33-5.43)
[2020-11-27 07:21] LABS: Potassium 3.5 mmol/L (3.5-5.1); Uric Acid 4.9 mg/dL (3.5-7.2)
[2020-11-27] MEDS: levETIRAcetam 500 MG TAB PO SCH ×2 (08:42→21:19)
[2020-11-27] MEDS: VITAMIN D 5,000 UNIT CAP PO SCH (08:42)
[2020-11-27] MEDS: LACTOBACILLUS/ACIDOPHILUS TAB PO SCH ×3 (08:42→21:20)
[2020-11-27] MEDS: carvediloL 3.125 MG TAB PO SCH ×2 (08:42→21:19)
[2020-11-27] MEDS: ATORVASTATIN 20 MG TAB PO SCH (08:42)
[2020-11-27] MEDS: CALCITROL 0.25 MCG CAP PO SCH (08:42)
[2020-11-27] MEDS: MEMANTINE HCL 10 MG TABLET PO SCH ×2 (08:42→21:25)
[2020-11-27] MEDS: DONEPEZIL HCL 5 MG TAB PO SCH (08:42)
[2020-11-27] MEDS: CEFEPIME/SWI 1gm 10 ML IV SCH (08:43)
[2020-11-27] MEDS: POTASS/SODIUM PHOSPHATE 1 PKT POWD.PACK PO SCH ×3 (12:31→14:35)
--- NOTE | 2020-11-27 14:21 | P.PN ---
Subjective Date of Service: 11/27/20 Chief Complaint: N/V and Diarrhea Subjective: Improving HE IS MUCH MORE AWAKE. HE IS TOLERATING FOOD. FAMILY IS TRYING TO GET G TUBE REMOVAL BUT GI CENTER NEEDED COVID TEST BEFORE THE VISIT THEY NEVER WENT THERE. I TALKED TO DR. GOMEZ AND HE WILL DO SO ON SATURDAY. HE IS ABLE TO EAT FOR LONG DURATION. HIS DAUGHTER IS AWARE OF G TUBE REMOVAL. THEY ALSO HAS BEEN TO DR. BURNS FOR YEARS AND DECISION WAS TO CONTINUE MARY BUT I SUSPECT SUPRAPUBIC CATH WILL BE A BETTER IDEA. I WILL CONSULT DR. PANDYA TO GET SECOND OPINION. 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 NO ACUTE COMPLAINTS. CAN'T COME UNTIL SATURDAY. HE IS AWAKE,HAS NO NEW COMPLAINTS. EATING WELL. Physical Examination - Vital Signs Temperature: 98.2 F Blood Pressure: 128/82 Pulse: 64 Respirations: 17 Pulse Ox (%): 93 - Physical Exam General: Oriented x3, Mild distress HEENT: Atraumatic, PERRLA, EOMI Neck: Supple, JVD not distended Respiratory: Clear to auscultation bilaterally, Normal air movement Cardiovascular: Regular rate/rhythm, Normal S1 S2 Gastrointestinal: Normal bowel sounds, No tenderness, Other (G TUBE NOT FUNCTIONAL.) Musculoskeletal: No tenderness Integumentary: No rashes Neurological: Normal speech, Normal tone, Normal affect Lymphatics: No axilla or inguinal lymphadenopathy - Studies Microbiology Data (last 24 hrs): 11/23/20 21:17 Clean Catch Urine [place] Count - Final >100,000 CFU/ML. 11/23/20 21:17 Clean Catch Urine - Final Proteus Mirabilis Medications List Reviewed: Yes Assessment And Plan - Current Problems (Diagnosis) (1) Acute on chronic renal failure Current Visit: Yes Status: Acute Plan: HIS BASE LINE CREATININE IS ABOUT 1.62 IN JUL 2020. IT HAS NOW RAISED TO 6 AND DOWN TO 4.4 NOW. 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 HE WILL BEENEFIT BY SUPRAPUBIC CATHTER. DR. BURNS IS NO MORE WORKING HERE. HE MAY BENEFIT BY DR. Jose J PANDYA [facility]OLOGY. FAMILY IS TRYING TO GET G TUBE REMOVAL BUT GI CENTER NEEDED COVID TEST BEFORE THE VISIT THEY NEVER WENT THERE. I TALKED TO DR. GOMEZ AND HE WILL DO SO ON SATURDAY. HE IS ABLE TO EAT FOR LONG DURATION. HIS DAUGHTER IS AWARE OF G TUBE RE MOVAL. THEY ALSO HAS BEEN TO DR. BURNS FOR YEARS AND DECISION WAS TO CONTINUE MARY BUT I SUSPECT SUPRAPUBIC CATH WILL BE A BETTER IDEA. I WILL CONSULT DR. PANDYA TO GET SECOND OPINION CREAT DOWN TO 2.1. WILL DO OUTPATIENT SUPRAPUBIC CATH OR HERE IF DR. PANDYA CAN DO THIS WEEK. CREAT CAME DOWN TO 1.8. Qualifiers: Chronic kidney disease stage: stage 4 (severe) (2) Elevated PSA Current Visit: Yes Status: Acute Plan: CHRONIC AND MAY HAVE LOW GRADE CANCER. DR. BURNS AND FAMILY DID NOT PURSUE THIS FURTHER HIS CONDITION IS POOR. (3) Urinary retention Current Visit: No Status: Chronic (4) CVA (cerebral vascular accident) Onset Date: Unknown Current Visit: No Status: Chronic Plan: STABLE. NO SEIZURES HE TAKES MEDS. PROGNOSIS IS OVERALL GUARDED WITH MULTIPLE ISSUES. Qualifiers: CVA mechanism: embolism Precerebral and cerebral artery: unspecified precerebral artery Qualified Code(s): I63.10 - Cerebral infarction due to embolism of unspecified precerebral artery (5) Seizure Onset Date: 01/07/17 Current Visit: No Status: Chronic Plan: CONTINUE KEPPRA. (6) Dementia, vascular Current Visit: Yes Status: Acute (7) Urinary tract infection due to Proteus Current Visit: Yes Status: Acute Plan: CHANGED FROM CEFEPIME TO ROCEPHIN [address] RD GENERATION ABX. HE HAS PROTEUS SEPSIS. (8) Positive blood culture Current Visit: Yes Status: Acute
[2020-11-27] MEDS: ENOXAPARIN 30 MG/0.3 ML SQ SCH (17:01)
[2020-11-28] MEDS: D5W 1,000 ML IV SCH ×2 (01:00→03:06)
[2020-11-28 06:06] LABS: Absolute Lymphocytes (CBC) 1.7 K/uL (0.7-4.9); Basophils % 0.6 % (0-1.3); Hematocrit 43.7 % (39.6-49.0); Lymphocytes % 15.2 % (15.3-44.8); MPV 11.1 fL (7.6-11.3); RBC Red Blood Cell Count 4.54 M/uL (4.33-5.43)
[2020-11-28 06:31] LABS: Potassium 3.7 mmol/L (3.5-5.1)
[2020-11-28] MEDS: LACTOBACILLUS/ACIDOPHILUS TAB PO SCH ×3 (09:00→20:17)
[2020-11-28] MEDS: DONEPEZIL HCL 5 MG TAB PO SCH (09:00)
[2020-11-28] MEDS: CALCITROL 0.25 MCG CAP PO SCH ×2 (09:00→09:12)
[2020-11-28] MEDS: levETIRAcetam 500 MG TAB PO SCH ×3 (09:00→20:17)
[2020-11-28] MEDS: VITAMIN D 5,000 UNIT CAP PO SCH ×2 (09:00→09:14)
[2020-11-28] MEDS: carvediloL 3.125 MG TAB PO SCH ×2 (09:00→20:18)
[2020-11-28] MEDS: ATORVASTATIN 20 MG TAB PO SCH ×2 (09:00→09:13)
[2020-11-28] MEDS: MEMANTINE HCL 10 MG TABLET PO SCH ×3 (09:00→20:18)
[2020-11-28] MEDS: CEFTRIAXONE/SWI 1gm 1 GM/10 ML SYR IV SCH (09:11)
[2020-11-28] MEDS: D5 0.45 NS 1,000 ML IV SCH ×2 (11:00→20:16)
--- NOTE | 2020-11-28 14:51 | PN ---
Date of Progress Note: 11/28/2020 Subjective: The patient is alert, awake, but not able to answer questions, question is baseline vasc ular dementia. The patient is unable to tell where he is or his name. He seems to be stable. Objective: Vital Signs: His blood pressure is 122/75 on last check, pulse is 77, respirations aroun d 14. He is afebrile, O2 sats are between 93% and 98% without oxygen. Lungs: Clear to auscultation. Abdomen: Soft. Extremities: Revealed trace edema. Heart: Sounds are regular. Laboratory Data: Reviewed. WBC count is improved from 16.1 on November 23 to 11.4, hemoglobin and hemat ocrit are 14.9 and 43.7, platelet count is 146. Chemistry shows sodium 140, potassium 3.7, chloride 107, bicarb is 25, BUN is 22, creatinine 1.43, calcium level of 8.0, phosphorus 2.4. Assessment And Plan: The patient is looking overall stable. His level of mentation seems to be clos e to baseline. He does seem to have documented dementia. On evaluation today, he seems to be improv ed in his hydration. His sodium level has improved down to 140. He does not have hyponatremia at th is point. We will go ahead and change his IV fluids to D5 half-normal saline at 50 mL an hour for ab out another L or so for tonight to reassess with chem-7 tomorrow. May not need further hydration as his kidney function is close to baseline. If he continues to take proper p.o. intake, further plans for nutrition as per Dr. Cannon. Dr. Cannon is also planning on getting evaluation with Dr. Oshea to evaluate the patient's future status with a Hernandez catheter versus a suprapubic catheter. In summary ; acute kidney injury improved baseline chronic kidney disease, urinary tract infection with Rocephin seems to be proper antibiotic as the sensitivities are good with that. The patient is clinically im proving. We will do D5 half-normal saline at 50 mL an hour and plan on may be discontinuing tomorrow. His breathing status is good right now and he seems to be close to euvolemic and improved. /KALLIE Voice ID: [id number] Report ID: [id number]
--- NOTE | 2020-11-28 20:44 | P.PN ---
Subjective Date of Service: 11/28/20 Chief Complaint: N/V and Diarrhea Subjective: Improving HE IS MUCH MORE AWAKE. HE IS TOLERATING FOOD. FAMILY IS TRYING TO GET G TUBE REMOVAL BUT GI CENTER NEEDED COVID TEST BEFORE THE VISIT THEY NEVER WENT THERE. I TALKED TO DR. GOMEZ AND HE WILL DO SO ON SATURDAY. HE IS ABLE TO EAT FOR LONG DURATION. HIS DAUGHTER IS AWARE OF G TUBE REMOVAL. THEY ALSO HAS BEEN TO DR. BURNS FOR YEARS AND DECISION WAS TO CONTINUE MARY BUT I SUSPECT SUPRAPUBIC CATH WILL BE A BETTER IDEA. I WILL CONSULT DR. PANDYA TO GET SECOND OPINION. 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 NO ACUTE COMPLAINTS. CAN'T COME UNTIL SATURDAY. HE IS AWAKE,HAS NO NEW COMPLAINTS. EATING WELL. SECONDS HANDLER HAS CALLED FAMILY TO FIND NH AND NOT ABLE TO FIND DAUGHTER YET. Physical Examination - Vital Signs Temperature: 99.1 F Blood Pressure: 118/70 Pulse: 86 Respirations: 16 Pulse Ox (%): 96 - Physical Exam General: Oriented x3, Mild distress HEENT: Atraumatic, PERRLA, EOMI Neck: Supple, JVD not distended Respiratory: Clear to auscultation bilaterally, Normal air movement Cardiovascular: Regular rate/rhythm, Normal S1 S2 Gastrointestinal: Normal bowel sounds, No tenderness Musculoskeletal: No tenderness Integumentary: No rashes Neurological: Normal speech, Normal tone, Normal affect Lymphatics: No axilla or inguinal lymphadenopathy - Studies Medications List Reviewed: Yes Assessment And Plan - Current Problems (Diagnosis) (1) Acute on chronic renal failure Current Visit: Yes Status: Acute Plan: HIS BASE LINE CREATININE IS ABOUT 1.62 IN JUL 2020. IT HAS NOW RAISED TO 6 AND DOWN TO 4.4 NOW. 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 HE WILL BEENEFIT BY SUPRAPUBIC CATHTER. DR. BURNS IS NO MORE WORKING HERE. HE MAY BENEFIT BY DR. Jose J PANDYA UROLOGY. FAMILY IS TRYING TO GET G TUBE REMOVAL BUT GI CENTER NEEDED COVID TEST BEFORE THE VISIT THEY NEVER WENT THERE. I TALKED TO DR. GOMEZ AND HE WILL DO SO ON SATURDAY. HE IS ABLE TO EAT FOR LONG DURATION. HIS DAUGHTER IS AWARE OF G TUBE REMOVAL. THEY ALSO HAS BEEN TO DR. BURNS FOR YEARS AND DECISION WAS TO CONTINUE MARY BUT I SUSPECT SUPRAPUBIC CATH WILL BE A BETTER IDEA. I WILL CONSULT DR. PANDYA TO GET SECOND OPINION CREAT DOWN TO 2.1. WILL DO OUTPATIENT SUPRAPUBIC CATH OR HERE IF DR. PANDYA CAN DO THIS WEEK. CREAT CAME DOWN TO 1.8. Qualifiers: Chronic kidney disease stage: stage 4 (severe) (2) Elevated PSA Current Visit: Yes Status: Acute Plan: CHRONIC AND MAY HAVE LOW GRADE CANCER. DR. BURNS AND FAMILY DID NOT PURSUE THIS FURTHER HIS CONDITION IS POOR. (3) Urinary retention Current Visit: No Status: Chronic (4) CVA (cerebral vascular accident) Onset Date: Unknown Current Visit: No Status: Chronic Plan: STABLE. NO SEIZURES HE TAKES MEDS. PROGNOSIS IS OVERALL GUARDED WITH MULTIPLE ISSUES. Qualifiers: CVA mechanism: embolism Precerebral and cerebral artery: unspecified precerebral artery Qualified Code(s): I63.10 - Cerebral infarction due to embolism of unspecified precerebral artery (5) Seizure Onset Date: 01/07/17 Current Visit: No Status: Chronic Plan: CONTINUE KEPPRA. (6) Dementia, vascular Current Visit: Yes Status: Acute (7) Urinary tract infection due to Proteus Current Visit: Yes Status: Acute Plan: CHANGED FROM CEFEPIME TO ROCEPHIN [address] RD GENERATION ABX. HE HAS PROTEUS SEPSIS. (8) Positive blood culture Current Visit: Yes Status: Acute
[2020-11-29 05:55] LABS: Hematocrit 44.3 % (39.6-49.0); Lymphocytes % 18.9 % (15.3-44.8); MPV 10.4 fL (7.6-11.3); RBC Red Blood Cell Count 4.66 M/uL (4.33-5.43)
[2020-11-29 06:07] LABS: Potassium 3.7 mmol/L (3.5-5.1)
[2020-11-29] MEDS: D5 0.45 NS 1,000 ML IV SCH (06:23)
[2020-11-29 06:52] LABS: Blood Morphology Comment NOT SEEN (NOT SEEN); Platelet Estimate ADEQ
[2020-11-29] MEDS: DONEPEZIL HCL 5 MG TAB PO SCH (09:00)
[2020-11-29] MEDS: CALCITROL 0.25 MCG CAP PO SCH (09:13)
[2020-11-29] MEDS: LACTOBACILLUS/ACIDOPHILUS TAB PO SCH ×2 (09:13→15:00)
[2020-11-29] MEDS: carvediloL 3.125 MG TAB PO SCH (09:14)
[2020-11-29] MEDS: MEMANTINE HCL 10 MG TABLET PO SCH (09:14)
[2020-11-29] MEDS: CEFTRIAXONE/SWI 1gm 1 GM/10 ML SYR IV SCH (09:14)
[2020-11-29] MEDS: VITAMIN D 5,000 UNIT CAP PO SCH (09:14)
[2020-11-29] MEDS: levETIRAcetam 500 MG TAB PO SCH (09:14)
[2020-11-29] MEDS: ATORVASTATIN 20 MG TAB PO SCH (09:14)
[2020-11-29 09:28] VITALS: O2SAT 97
--- NOTE | 2020-11-29 12:14 | P.DS ---
Admission Date: 11/23/20 Discharge Date: 11/29/20 Disposition: TRANSFER TO RETIREMENT Reason for Admission: N/V and Diarrhea - Problems (1) Acute on chronic renal failure Current Visit: Yes Status: Acute Qualifiers: Chronic kidney disease stage: stage 4 (severe) (2) Elevated PSA Current Visit: Yes Status: Acute (3) Urinary retention Current Visit: No Status: Chronic (4) CVA (cerebral vascular accident) Onset Date: Unknown Current Visit: No Status: Chronic Qualifiers: CVA mechanism: embolism Precerebral and cerebral artery: unspecified precerebral artery Qualified Code(s): I63.10 - Cerebral infarction due to embolism of unspecified precerebral artery (5) Seizure Onset Date: 01/07/17 Current Visit: No Status: Chronic (6) Dementia, vascular Current Visit: Yes Status: Acute (7) Urinary tract infection due to Proteus Current Visit: Yes Status: Acute (8) Positive blood culture Current Visit: Yes Status: Acute Brief History of Present Illness: MR. JAEGER COMES WITH NAUSEA, VOMITING, DIARRHEA AND WEAKNESS. HIS CREATNINE IS 6.4 NOW DOWN TO 4.4. ON SCAN HE SHOWS HYDRONEPHROSIS. HE HAS LOW GRADE PROSTATE CANCER. HIS PSA HAS BEEN 5.5. DR. BURNS IS NOT ABLE TO DO BIOSPY OR SURGERY BECAUSE OF HIS POOR GENERAL CONDITION WITH HISTORY OF STROKE, SEIZURE AND RELATED DEEMNTIA. HE HAS A G TUBE AND GI DOCTOR WAS TO REMOVE IT BUT IT HAS NOT HAPPENED YET. HE HAS RETENTION OF URINE AND DR. BURNS HAS MARY CATHETER FOR HIM LIFETIME AND GIVES HIM KEFLEX ON DAILY BASIS TO PREVENT INFECTION. Hospital Course: MR JAEGER CAME WITH DEHYDRATION, OBTUNDATION, IMPROVED ON HYDRATION AND IV ABX. HE HAD ACUTE ON CHRONIC RENAL FAILURE, POST OBSTRUCTIVE UTOPATHY. HE IS STABLE TO GO TO [place]. G TUBE WAS TAKEN OUT. HIS RENAL FUNCTION HAS IMPROVED. CRATININE CAME DOWN FROM 6 TO 1.4. HE WILL FU WITH DR. Jose J PANDYA FOR CATHTER FU. HE HAS PROTEUS UTI AND I STOPPED KEFLEX HE WAS ON FOR LIFE TIME IT JUST CREATES RESISTANT BUGS. FAMILY UNDERSTANDS. Vital Signs/Physical Exam: Temp Pulse Resp BP Pulse Ox 97.2 F 64 18 117/73 97 11/29/20 08:00 11/29/20 09:14 11/29/20 08:00 11/29/20 09:14 11/29/20 08:00 Laboratory Data at Discharge: WBC 10.40 K/uL (4.3-10.9) 11/29/20 05:22 Hgb 15.0 g/dL (13.6-17.9) 11/29/20 05:22 Hct 44.3 % (39.6-49.0) 11/29/20 05:22 Plt Count 182 K/uL (152-406) D 11/29/20 05:22 PT 14.8 SECONDS (9.5-12.5) H 11/23/20 19:56 INR 1.28 11/23/20 19:56 Sodium Cancelled 11/29/20 Unknown Potassium Cancelled 11/29/20 Unknown BUN Cancelled 11/29/20 Unknown Creatinine Cancelled 11/29/20 Unknown Glucose Cancelled 11/29/20 Unknown Uric Acid 4.9 mg/dL (3.5-7.2) 11/27/20 05:30 Phosphorus Cancelled 11/29/20 06:30 Magnesium 2.2 mg/dL (1.8-2.4) 11/23/20 19:56 Total Bilirubin 1.4 mg/dL (0.2-1.0) H 11/26/20 05:49 AST 70 U/L (15-37) H 11/26/20 05:49 ALT 82 U/L (12-78) H 11/26/20 05:49 Alkaline Phosphatase 57 U/L (45-117) 11/26/20 05:49 Lipase 577 U/L (73-393) H 11/24/20 05:36 Home Medications: Aspirin [Aspirin EC 81 MG] 81 mg PO DAILY 11/24/20 Atorvastatin Calcium [Lipitor*] 20 mg PO DAILY 11/24/20 Carvedilol [Coreg] 3.125 mg PO BID 11/24/20 Donepezil [Aricept*] 5 mg PO DAILY 11/24/20 Levetiracetam [Keppra] 1,000 mg PO BID 11/24/20 Losartan Potassium [Cozaar] 100 mg PO DAILY 11/24/20 Memantine HCl [Namenda*] 10 mg PO BID 11/24/20 Followup: NONE,NONE [Primary Care Provider] -
--- NOTE | 2020-11-29 16:00 | PN ---
Date of Progress Note: 11/29/2020 Subjective: The patient is alert, awake, unable to answer questions which seems to be his baseline. He does not look like he is in any pain. He seems well hydrated. When asked if he has been eating food, he nods in affirmative and answers yes. He is able to follow some basic commands, but not able to answer any questions or give me any history which seems to be his baseline. Objective: Vital Signs: His blood pressure is 117/73 last, before that 123/80, before that 134/69. His pulse is about 60 to 70 on my examination, about 65 and regular. His respirations are around 14 on my examination. Temperature 97.2. O2 sats are in mid 90s on last, 197% on room air. Lungs: Clear to auscultation. Abdomen: Soft. Extremities: Reveal no edema. Heart: Sounds are regular. The patient is listed to be taking p.o. intake in the range of about 1500 to 2000 mL comfortably ever y 24 hours. His oral p.o. intake has been about 400 to 720 mL. His IV fluid intake has been about 1 200 mL with 50 mL an hour. Laboratory Data: Reviewed. WBC count 10.4, hemoglobin and hematocrit 15 and 44.3, platelet count of 182. Sodium 140, potassium 3.7, chloride 108, bicarb is 26, BUN and creatinine are 19/1.4, glucose 123, calcium 7.9. Assessment And Plan: A 65-year-old male with vascular dementia. At this point, he is looking comfor table. He seems to be reasonably well hydrated. He still does not seem to be taking any good p.o. i ntake, but has been eating and drinking much better overall. His labs have improved. His kidney fun ction seems to have stabilized. At this point, continue with D5 half-normal saline at 50 mL an hour for 1 more day and reassess tomorrow. May be able to discontinue his IV fluids completely tomorrow a s the patient is improving his p.o. intake and eating and drinking well, his renal function seems to have stabilized. For a long-term plan of his bladder and his p.o. intake, will need outpatient follo wup perhaps with Dr. Oshea and also plan for encouraging p.o. intake and monitoring that closely in a monitored setting. From the kidney point of view, his renal function seems to have stabilized. Annita brock does seem to have some chronic kidney disease, which needs to be monitored. Once his acute issues are completely resolved or stabilized renal function is, going forward he may need a supra pubic catheter and Dr. Oshea is going to plan on that if that would be a feasible option going forw ruben for this patient. /KALLIE Voice ID: [id number] Report ID: [id number]
[2020-11-29] MEDS: ENOXAPARIN 30 MG/0.3 ML SQ SCH (16:26)
[2020-11-29 16:59] VITALS: BP 120/69; TEMP 98.4
[2020-11-29 18:06] LABS: HBsAG Nonreactive (Nonreactive)
--- NOTE | 2020-12-29 14:04 | CON ---
Reason For Consultation: PEG removal. History Of Presenting Illness: The patient is a 65-year-old gentleman with history of CVA, hypertens ion, dyslipidemia, seizure disorder, gastroesophageal reflux disease, who had a PEG placed due to str tremayne and also related to dementia. He presented to the hospital with nausea, vomiting, diarrhea, weak ness, and acute renal failure which is improving. He also has history of prostate cancer. The patie nt has been eating for the last several months p.o. and Dr. Cannon had wanted him to remove his feedin g tube; however, he was not able to come to us in the clinic. Now, he is in the hospital and eating properly as well. I was requested to see the PEG tube can be removed while he is in the hospital. Allergies: NO KNOWN DRUG ALLERGIES. Home Medications: As in the chart. Past Medical History: As above. Past Surgical History: Femoral stent, PEG tube placement. Family History: Noncontributory. Social History: No known toxic habits. Review of Systems: General: As in HPI. GI: As in HPI. Otherwise, negative. Remainder of 10-point review of systems negative. Physical Examination: HEENT: He is afebrile, normotensive, not tachycardic, not tachypneic. Head: Atraumatic, normocephalic. Pupils equally reactive. Neck: Supple. Chest: Bilateral air entry. Abdomen: Soft, nontender, nondistended. Bowel sounds present. He has PEG tube seen in place with h ruben debris in the tubing, likely due to lack of use. Laboratory Data: Reviewed. Impression: A 65-year-old gentleman with history of dementia, history of stroke, who subsequently jaffe d a PEG placed; however, dysphagia resolved and was able to eat p.o. Dr. Cannon and the patient also would request a PEG removal, which I believe would be appropriate . Plan: We will proceed with PEG removal. The patient will only be n.p.o. and in a supine position wi th constant gentle traction, I was able to remove the feeding tube without any complications. I also placed a dressing at the site of the stoma, which we would close soon. We will keep n.p.o. for 6 ho urs, from then on clear liquid diet from today and regular diet from tomorrow. US/MODL Voice ID: [id number] Report ID: [id number]
== END 2020-11-29 17:03 | DRG 872 ==
LOC: ER 17:30 → ERHOLD 22:31 → 2ND 11-24 02:27
PROVIDERS: ADMIT Internal Medicine; ATTEND Internal Medicine
DX: A41.89 Other specified sepsis (principal); N17.9 Acute kidney failure, unspecified; E87.0 Hyperosmolality and hypernatremia; E87.2 Acidosis; E44.0 Moderate protein-calorie malnutrition; N30.00 Acute cystitis without hematuria; N12 Tubulo-interstitial nephritis, not specified as acute or chronic; N18.4 Chronic kidney disease, stage 4 (severe); N13.6 Pyonephrosis; I12.9 Hypertensive chronic kidney disease with stage 1 through stage 4 chronic kidney disease, or unspecified chronic kidney disease; E83.51 Hypocalcemia; F01.50 Vascular dementia, unspecified severity, without behavioral disturbance, psychotic disturbance, mood disturbance, and anxiety; E86.0 Dehydration; C61 Malignant neoplasm of prostate; K21.9 Gastro-esophageal reflux disease without esophagitis; B96.4 Proteus (mirabilis) (morganii) as the cause of diseases classified elsewhere; R33.9 Retention of urine, unspecified; Z79.82 Long term (current) use of aspirin; Z68.29 Body mass index [BMI] 29.0-29.9, adult; Z86.73 Personal history of transient ischemic attack (TIA), and cerebral infarction without residual deficits; Z79.899 Other long term (current) drug therapy; Z93.1 Gastrostomy status; Z20.822 Contact with and (suspected) exposure to COVID-19
CPT/HCPCS: 36415; 51702; 70450; 71045; 74176; 80048; 80076; 81001; 81015; 82947; 83605; 83690; 83735; 83880; 84100; 84145; 84484; 84550; 85025; 85610; 86317; 86704; 87040; 87077; 87086; 87088; 87186; 87205; 87340; 93005; 97116; 97161; 97530; 99285; J0692; J0696; J1650; J2405; J7030; J7040; J7799; U0003

== ENCOUNTER 2021-03-23 17:57 | Inpatient (IN) | payer OTHER ==
[~2021-03-23 17:57] MED LIST: LEVALBUTEROL 1.25 MG/3 ML NEB ONE; MAGNESIUM SULFATE 1 gm IVPB 1 GM/100 ML BAG IV ONE
--- NOTE | 2021-03-23 18:55 | RAD REPORT ---
EXAM DESCRIPTION: RAD - Chest Single View - 03/23/2021 6:49 pm CLINICAL HISTORY: COUGH Chest pain. COMPARISON: Chest Single View dated 11/23/2020; Chest Single View dated 01/07/2019; Chest Single View d ated 08/29/2018; Chest Single View dated 04/05/2017 FINDINGS: Portable technique limits examination quality. Mild to moderate bilateral pulmonary opacities are present, which probably represent pulmonary infect ion/viral infection. The heart is upper limit of normal in size. No displaced fractures.
[2021-03-23] MEDS ORDERED: NA CHLORIDE 0.9% 1,000 ML ONE ×2 (19:22→20:39)
[2021-03-23 19:39] LABS: Absolute Lymphocytes (CBC) 1.1 K/uL (0.7-4.9); Basophils % 0.1 % (0-1.3); Lymphocytes % 13.4 % (15.3-44.8); MPV 9.6 fL (7.6-11.3); RBC Red Blood Cell Count 4.92 M/uL (4.33-5.43)
--- NOTE | 2021-03-23 19:44 | ER ---
Nurse's Notes [facility] Name: Francheska Bolaños Jr Age: 65 yrs Sex: Male : 1955 Arrival Date: 03/23/2021 Time: 18:00 Bed 20 Private MD: Diagnosis: Severe sepsis with septic shock;Dehydration;Coronavirus infection, unspecified;Pneumonia due to SARS-associated coronavirus;Hypoxemia Presentation: 03/23 18:23 Chief complaint: EMS states: PT from nursing facility c/o sob per EMS. EMS states pt kh1 was DX with covid 5 days ago. Pt is non verbal resp even and labored. placed on O2 4L NC. Hernandez in place PROPERTY MANAGEMENT ACCOUNTANT. Dark cloudy urine with sediments noted in catheter. Coronavirus screen: difficulty breathing, fatigue. Ebola Screen: No symptoms or risks identified at this time. 18:23 Method Of Arrival: EMS: [place] [id number] 18:29 Initial Sepsis Screen: Does the patient meet any 2 criteria? RR > 20 per min. Systolic [facility] BP < 90 mmHg. Altered Mental Status. Yes. Risk Assessment: Do you want to hurt yourself or someone else? Unable to obtain. Onset of symptoms is unknown. 18:29 Acuity: MAGI 2 [facility] 18:34 Initial Sepsis Screen: Does the patient have a suspected source of infection?. [facility] Triage Assessment: 18:30 General: Appears distressed, uncomfortable, unkempt, Behavior is calm, drowsy, kh1 inappropriate for age. Pain: Denies pain. - Social history:: pt is non verbal. - Family history:: not pertinent. Screenin:32 Abuse screen: Denies threats or abuse. Nutritional screening: poor historian. [facility] Tuberculosis screening: No symptoms or risk factors identified. Fall Risk Secondary diagnosis (15 points) Alzheimer's, impaired mobility, IV access (20 points). Gait- Impaired (20 pts.). Mental Status- Overestimates/Forgets Limitations (15 pts.). Assessment: 18:32 Visitor restriction implemented due to in-person visitations may lead to the [facility] transmission of an infectious agent. Restricted visitation is valid for not more than 5 days unless renewed by the attending provider. Visitor restrictions were implemented on: March 23, 2021. 19:46 General: Appears. kc4 Vital Signs: 18:23 BP 80 / 66; Pulse 101; Resp 35; Temp 98.6(A); Pulse Ox 91% on 4 lpm NC; kh1 18:31 BP 91 / ???; Pulse 96; Resp 65; Pulse Ox 94% on 4 lpm NC; kh1 19:44 BP 98 / 67; Pulse 82; Resp 40; Temp 98.9(A); Pulse Ox 92% on 5 lpm NC; Pain 0/10; kh1 20:27 BP 94 / 64 LA (auto/); Pulse 84; Resp 26; Temp 98.9; Pulse Ox 90% on R/A; kc4 22:56 BP 92 / 64 Sitting (man/reg); Pulse 77; Resp 28; Temp 98.9; Pulse Ox 96% on 5 lpm NC; kc4 Pain 0/10; ED Course: 18:00 Patient arrived in ED. ss 18:03 Kane Floyd MD is Attending Physician. [facility] 18:23 Elsy Corrales is Primary Nurse. 1 18:30 Triage completed. 1 18:30 Arm band placed on right wrist. kh1 18:32 Patient has correct armband on for positive identification. Bed in low position. Call [facility] light in reach. Side rails up X 1. 18:32 No provider procedures requiring assistance completed. Inserted saline lock: 22 gauge kh1 in left hand, using aseptic technique. 18:49 XRAY Chest (1 view) In Process Unspecified. EDNV 19:43 Pablo Cooper DO is Hospitalizing Provider. [facility] 03/24 01:45 Blood Culture Adult (2) Sent. kc4 Administered Medications: 03/23 20:25 Discontinued: NS 0.9% 1000 ml IV at 125 ml/hr continuous la1 19:20 Drug: NS 0.9% 1000 ml Route: IV; Rate: 1 bolus; Site: right femoral; kc4 19:43 Drug: SOLU-Medrol (methylPrednisoLONE) 125 mg Route: IVP; Site: left hand; kh1 19:43 Drug: Pepcid (famotidine) 20 mg Route: IVP; Site: left hand; kh1 20:26 Follow up: Response: No adverse reaction kc4 19:44 Drug: Rocephin (cefTRIAXone) 1 grams Route: IV; Rate: per protocol; Site: left hand; kh1 20:21 Drug: NS 0.9% 1000 ml Route: IV; Rate: 1 bolus; Site: left hand; kc4 20:22 Drug: NS 0.9% 1000 ml Route: IV; Rate: 125 ml/hr; Site: left hand; kc4 20:49 Follow up: IV Status: Order to discontinue infusion kc4 20:26 Drug: Lovenox (enoxaparin) 40 mg Route: Sub-Q; Site: abdomen; kc4 21:04 Follow up: Response: No adverse reaction kc4 22:52 Follow up: Response: No adverse reaction kc4 20:46 Drug: D5W 1000 ml Route: IV; Rate: 75 ml/hr; Site: right femoral; kc4 22:52 Follow up: IV Status: Infusion continued kc4 22:45 CANCELLED (not avalible. cancelled by providerr): Aspirin Suppository 300 mg CA once kc4 Outcome: 19:44 Decision to Hospitalize by Provider. emerson 03/24 15:46 Patient left the ED. iw Signatures: Dispatcher [employer] EDNV Kane Floyd MD MD cha Williams, Irene, RN Tamiko Coleman RN RN ss Harris, Kecia kh Glory Cruz kc4 Corrections: (The following items were deleted from the chart) 03/23 18:30 18:30 PMHx: CVA; 1 kh1 18:30 18:30 PMHx: High Cholesterol; kh1 kh1 18:30 18:30 PMHx: Hypertension; kh1 kh1 18:30 18:30 PMHx: GERD; kh1 kh1 18:30 18:30 PMHx: Seizures; kh1 kh1
[2021-03-23] MEDS ORDERED: FAMOTIDINE 20 MG/2 ML VIAL IV ONE (19:45)
[2021-03-23] MEDS ORDERED: CEFTRIAXONE 1000 MG/VIAL ONE (19:45)
[2021-03-23] MEDS ORDERED: METHYLPREDNISOLONE 125 MG INJ ONE (19:45)
--- NOTE | 2021-03-23 19:45 | EDPHYS ---
Physician Documentation [facility] Name: Francheska Bolaños Jr Age: 65 yrs Sex: Male : 1955 Arrival Date: 03/23/2021 Time: 18:00 Bed 20 Private MD: ED Physician Kane Floyd HPI: 03/23 18:29 This 65 yrs old Black Male presents to ER via Unassigned with complaints of SOB, COVID emerson AND HYPOXIA. 18:29 The patient has shortness of breath at rest. Onset: The symptoms/episode began/occurred emerson 3 day(s) ago. Duration: The symptoms are continuous, and are steadily getting worse. The patient's shortness of breath is aggravated by coughing. The patient or guardian reports airway noise, cough, that is intermittent, difficulty breathing. Modifying factors: The symptoms are alleviated by nothing. the symptoms are aggravated by nothing. HYPOXIA, 5 DAYS SYMPTOMS. Associated signs and symptoms: Pertinent positives: non-productive cough, nausea. Severity of symptoms: At their worst the symptoms were mild moderate in the emergency department the symptoms are unchanged. Associated signs and symptoms: The patient has no apparent associated signs or symptoms. - Social history:: pt is non verbal. - Family history:: not pertinent. ROS: 18:29 Constitutional: Negative for fever, chills, and weight loss, Eyes: Negative for injury, emerson pain, redness, and discharge, ENT: Negative for injury, pain, and discharge, Neck: Negative for injury, pain, and swelling, Cardiovascular: Negative for chest pain, palpitations, and edema, Abdomen/GI: Negative for abdominal pain, nausea, vomiting, diarrhea, and constipation, Back: Negative for injury and pain, : Negative for injury, bleeding, discharge, and swelling, MS/Extremity: Negative for injury and deformity, Skin: Negative for injury, rash, and discoloration, Psych: Negative for depression, anxiety, suicide ideation, homicidal ideation, and hallucinations, Allergy/Immunology: Negative for hives, rash, and allergies, Endocrine: Negative for neck swelling, polydipsia, polyuria, polyphagia, and marked weight changes, Hematologic/Lymphatic: Negative for swollen nodes, abnormal bleeding, and unusual bruising. 18:29 Respiratory: Positive for cough, shortness of breath, at rest. 18:29 Neuro: Positive for weakness. Exam: 18:29 Constitutional: This is a well developed, well nourished patient who is awake, alert, emerson and in no acute distress. Head/Face: Normocephalic, atraumatic. Eyes: Pupils equal round and reactive to light, extra-ocular motions intact. Lids and lashes normal. Conjunctiva and sclera are non-icteric and not injected. Cornea within normal limits. Periorbital areas with no swelling, redness, or edema. ENT: Nares patent. No nasal discharge, no septal abnormalities noted. Tympanic membranes are normal and external auditory canals are clear. Oropharynx with no redness, swelling, or masses, exudates, or evidence of obstruction, uvula midline. Mucous membranes moist. Neck: Trachea midline, no thyromegaly or masses palpated, and no cervical lymphadenopathy. Supple, full range of motion without nuchal rigidity, or vertebral point tenderness. No Meningismus. Chest/axilla: Normal chest wall appearance and motion. Nontender with no deformity. No lesions are appreciated. Cardiovascular: Regular rate and rhythm with a normal S1 and S2. No gallops, murmurs, or rubs. Normal PMI, no JVD. No pulse deficits. Back: No spinal tenderness. No costovertebral tenderness. Full range of motion. Male : Normal genitalia with no discharge or lesions. Skin: Warm, dry with normal turgor. Normal color with no rashes, no lesions, and no evidence of cellulitis. 18:29 Respiratory: mild respiratory distress is noted, moderate respiratory distress is noted, Respirations: labored breathing, that is mild, intercostal retractions, that is mild, Breath sounds: bronchial sounds, that are mild, decreased breath sounds, that are mild, are scattered, rhonchi, that are mild, stridor, is not appreciated, + upper airway congestion. Respiratory rate: 40 Vital Signs: 18:23 BP 80 / 66; Pulse 101; Resp 35; Temp 98.6(A); Pulse Ox 91% on 4 lpm NC; kh1 18:31 BP 91 / ???; Pulse 96; Resp 65; Pulse Ox 94% on 4 lpm NC; kh1 19:44 BP 98 / 67; Pulse 82; Resp 40; Temp 98.9(A); Pulse Ox 92% on 5 lpm NC; Pain 0/10; kh1 20:27 BP 94 / 64 LA (auto/); Pulse 84; Resp 26; Temp 98.9; Pulse Ox 90% on R/A; kc4 22:56 BP 92 / 64 Sitting (man/reg); Pulse 77; Resp 28; Temp 98.9; Pulse Ox 96% on 5 lpm NC; kc4 Pain 0/10; Procedures: 19:39 Central Line: the site was prepped with Betadine, in sterile fashion, a triple lumen emerson catheter was inserted, in the right femoral vein, in 1 attempts. placement was verified, by blood return, the site was dressed with using sterile technique, the patient tolerated the procedure, well. MDM: 18:03 Patient medically screened. emerson 18:35 Differential diagnosis: Anemia asthma, Bronchitis CHF exacerbation, Chronic Obstructive emerson Pulmonary Disease bronchitis, flu, URI, pneumonia, pulmonary edema. Antibiotic administration: Rocephin and Zithromax given. Differential Diagnosis altered mental status, sepsis, flu. The patient's Wells Deep Vein Thrombosis Score was calculated as follows: Total Score: 0-2 Pts- Low Risk. The patient's pulmonary embolism risk score was calculated as follows: Total Score: 0-2 points. This patient was found to be at low risk for a pulmonary embolism by using the Well's assessment criteria. Immunization status: Pneumococcal vaccine: Influenza vaccine: Data reviewed: vital signs, nurses notes, lab test result(s), EKG, radiologic studies, plain films. Data interpreted: pharmacy delivery driver: rate is 96 beats/min, rhythm is regular, Pulse oximetry: on room air is 94 %. Test interpretation: by ED physician or midlevel provider: ECG, plain radiologic studies. Counseling: I had a detailed discussion with the patient and/or guardian regarding: the historical points, exam findings, and any diagnostic results supporting the discharge/admit diagnosis, lab results, radiology results, the need for further work-up and treatment in the hospital. 03/23 18:29 Order name: Basic Metabolic Panel [facility] 03/23 18:29 Order name: CBC with Diff; Complete Time: 19:46 [facility] 03/23 18:29 Order name: LFT's [facility] 03/23 18:29 Order name: Magnesium [facility] 03/23 18:29 Order name: NT PRO-BNP [facility] 03/23 18:29 Order name: PT-INR; Complete Time: 19:50 [facility] 03/23 18:29 Order name: Troponin (emerg Dept Use Only) [facility] 03/23 18:29 Order name: Blood Culture Adult (2) [facility] 03/23 18:29 Order name: CRP [facility] 03/23 18:29 Order name: Ferritin [facility] 03/23 18:29 Order name: Lactate; Complete Time: 21:38 [facility] 03/23 18:29 Order name: D-Dimer; Complete Time: 19:50 [facility] 03/23 19:21 Order name: Procalcitonin [facility] 03/23 18:29 Order name: XRAY Chest (1 view); Complete Time: 19:16 [facility] 03/23 21:21 Order name: Head Brain Wo Cont CT la 03/24 02:33 Order name: Urinalysis [facility] 03/24 03:18 Order name: Urine Microscopic Only [facility] 03/24 04:03 Order name: D-Dimer [facility] 03/24 04:04 Order name: CBC with Automated Diff [facility] 03/24 04:38 Order name: Comprehensive Metabolic Panel [facility] 03/24 04:38 Order name: C-Reactive Protein [facility] 03/24 04:38 Order name: T4 Free [facility] 03/24 04:38 Order name: Thyroid Stimulating Hormone [facility] 03/24 04:38 Order name: Ferritin [facility] 03/24 04:39 Order name: Uric Acid [facility] 03/24 04:39 Order name: Creatine Phosphokinase [facility] 03/24 04:39 Order name: Troponin I [facility] 03/24 09:39 Order name: Troponin I [facility] 03/24 10:06 Order name: CT [facility] 03/23 18:29 Order name: EKG; Complete Time: 18:29 [facility] 03/23 18:29 Order name: Cardiac monitoring; Complete Time: 18:34 [facility] 03/23 18:29 Order name: EKG - Nurse/Tech [facility] 03/23 18:29 Order name: IV Saline Lock [facility] 03/23 18:29 Order name: Labs collected and sent [facility] 03/23 18:29 Order name: O2 Per Protocol; Complete Time: 18:34 [facility] 03/23 18:29 Order name: O2 Sat Monitoring; Complete Time: 18:34 [facility] 03/23 18:29 Order name: Urine Dipstick-Ancillary (obtain specimen); Complete Time: 01:45 [facility] Administered Medications: 20:25 Discontinued: NS 0.9% 1000 ml IV at 125 ml/hr continuous la1 19:20 Drug: NS 0.9% 1000 ml Route: IV; Rate: 1 bolus; Site: right femoral; kc4 19:43 Drug: SOLU-Medrol (methylPrednisoLONE) 125 mg Route: IVP; Site: left hand; kh1 19:43 Drug: Pepcid (famotidine) 20 mg Route: IVP; Site: left hand; kh1 20:26 Follow up: Response: No adverse reaction kc4 19:44 Drug: Rocephin (cefTRIAXone) 1 grams Route: IV; Rate: per protocol; Site: left hand; kh1 20:21 Drug: NS 0.9% 1000 ml Route: IV; Rate: 1 bolus; Site: left hand; kc4 20:22 Drug: NS 0.9% 1000 ml Route: IV; Rate: 125 ml/hr; Site: left hand; kc4 20:49 Follow up: IV Status: Order to discontinue infusion kc4 20:26 Drug: Lovenox (enoxaparin) 40 mg Route: Sub-Q; Site: abdomen; kc4 21:04 Follow up: Response: No adverse reaction kc4 22:52 Follow up: Response: No adverse reaction kc4 20:46 Drug: D5W 1000 ml Route: IV; Rate: 75 ml/hr; Site: right femoral; kc4 22:52 Follow up: IV Status: Infusion continued kc4 22:45 CANCELLED (not avalible. cancelled by providerr): Aspirin Suppository 300 mg CO once kc4 Disposition Summary: 03/23/21 19:44 Hospitalization Ordered Hospitalization Status: Inpatient Admission emerson Provider: Pablo Cooper emerson Condition: Stable emerson Problem: new emerson Symptoms: have improved emerson Bed/Room Type: Standard emerson Location: Intensive Care Unit(03/24/21 12:45) mt Room Assignment: 6-(03/24/21 12:45) mt Diagnosis - Severe sepsis with septic shock emerson - Dehydration emerson - Coronavirus infection, unspecified emerson - Pneumonia due to SARS-associated coronavirus emerson - Hypoxemia emerson Forms: - Medication Reconciliation Form emerson - SBAR form emerson Signatures: Dispatcher [employer] Kane Santana MD MD cha Attema, Lee, CONVENTIONS ASSISTANT-C CONVENTIONS ASSISTANT-ClaAmanda Shaw, RN RN cg [facility] [place], Elsy [facility] Cruz kc4 Corrections: (The following items were deleted from the chart) 18:30 18:30 PMHx: CVA; 1 kh1 18:30 18:30 PMHx: High Cholesterol; kh1 kh1 18:30 18:30 PMHx: Hypertension; 1 kh1 18:30 18:30 PMHx: GERD; 1 kh1 18:30 18:30 PMHx: Seizures; [place] [id number] 20:46 19:44 Telemetry/MedSurg (Inpatient) [facility] 20:46 19:44 [facility] 22:45 19:50 Aspirin Suppository 300 mg CO once ordered. [place] [id number] 03/24 12:45 03/23 20:46 [facility] ER HOLD [facility] 03/24 12:45 03/23 20:46 ERHOLD- [facility]
[2021-03-23 19:47] LABS: Protime INR 1.17
[2021-03-23 20:19] LABS: Albumin 2.1 g/dL (3.4-5.0); Bilirubin Direct 0.4 mg/dL (0-0.2); Magnesium 3.1 mg/dL (1.8-2.4); Potassium 4.5 mmol/L (3.5-5.1); Protein, Total 6.7 g/dL (6.4-8.2); Troponin (Emerg Dept Use Only) 0.13 ng/mL (0.0-0.045)
[2021-03-23] MEDS ORDERED: ENOXAPARIN 40 MG/0.4 ML SQ ONE (20:49)
[2021-03-23] MEDS ORDERED: D5 0.9 NS 0 ML IV ONE (20:57)
[2021-03-23] MEDS ORDERED: D5W 1,000 ML IV ONE (21:02)
--- NOTE | 2021-03-23 22:32 | P.HP ---
Certification for Inpatient Patient admitted to: Inpatient With expected LOS: >2 Midnights Patient will require the following post-hospital care: None Practitioner: I am a practitioner with admitting privileges, knowledge of patient current condition, hospital course, and medical plan of care. Services: Services provided to patient in accordance with Admission requirements found in Title 42 Section 412.3 of the Code of Federal Regulations Patient History Date of Service: 03/23/21 Primary Care Provider: intermediate doctor Reason for admission: Respiratory failure, COVID-19 History of Present Illness: 65-year-old currently residing at [facility] was transported to the emergency department for respiratory distress. Patient tested positive for Covid on 03/13/2021, is not vaccinated. Upon arrival to the emergency department patient was hypoxic saturating in 80s and hypotensive with a blood pressure of 80/66, patient had difficult venous access and therefore central line was inserted. Further evaluation revealed labs significant for D-dimer 1026 sodium 147 chloride 118 creatinine 3.3 BUN 56 GFR 23 glucose 141 ferritin 1668 magnesium 3.1 AST 110 alk phos 33 troponin 0 0.13 C-reactive protein 154 BNP 1102 procalcitonin 0.65 chest x-ray demonstrates mild to moderate bilateral pulmonary opacities. Attempted to reach out to halfway, staff unavailable for questioning, spoke with sister who informed that patient usually communicates verbally and will feed himself, at this time patient not following any verbal commands or communicating verbally, CT head ordered and pending. Patient currently on nasal cannula at 6 to 7 L saturating the low 90s, ED provider wishes to admit for further evaluation and management. Allergies No Known Drug Allergies Allergy (Verified 01/07/17 02:30) Unknown Home Medications: Aspirin [Aspirin EC 81 MG] 81 mg PO DAILY 11/24/20 Atorvastatin Calcium [Lipitor*] 20 mg PO DAILY 11/24/20 Carvedilol [Coreg] 3.125 mg PO BID 11/24/20 Donepezil [Aricept*] 5 mg PO DAILY 11/24/20 Levetiracetam [Keppra] 1,000 mg PO BID 11/24/20 Losartan Potassium [Cozaar] 100 mg PO DAILY 11/24/20 Memantine HCl [Namenda*] 10 mg PO BID 11/24/20 - Past Medical/Surgical History Diabetic: No -: CVA -: HTN -: high Cholesterol -: Seizures -: GERD -: Femoral stent -: peg tube placement Psychosocial/ Personal History: Patient is currently halfway resident, disabled. - Family History Mother -: Stroke, Kidney disease Notes: On Dialysis - Social History Alcohol use: No CD- Drugs: No Caffeine use: No Place of Residence: Custodial Review of Systems is unable to be obtained Physical Examination - Physical Exam General: Demented HEENT: Other (Mucous membranes dry) Neck: Supple Respiratory: Diminished Cardiovascular: No edema, Normal S1 S2 Capillary refill: <2 Seconds Gastrointestinal: Normal bowel sounds, Soft and benign Musculoskeletal: No contractures, No erythema, No tenderness Integumentary: No tenderness/swelling, No erythema Neurological: Other (Patient currently alert but will not follow commands or communicate verbally.) - Studies Laboratory Data (last 24 hrs) 03/23/21 19:15: PT 13.5 H, INR 1.17 03/23/21 19:15: WBC 8.10, Hgb 15.6, Hct 47.0, Plt Count 151 L 03/23/21 19:15: Sodium 147 H, Potassium 4.5, BUN 56 H, Creatinine 3.30 H, Glucose 141 H, Magnesium 3.1 H D, Total Bilirubin 1.0, AST 110 H, ALT 45, Alkaline Phosphatase 33 L Assessment and Plan - Plan Assessment: Acute hypoxic respiratory failure secondary to COVID-19 pneumonia Hypotension Acute renal failure superimposed on CKD3 Elevated troponin History of CVA/dementia Hypernatremia Plan: Acute hypoxic respiratory failure secondary to COVID-19 pneumonia: Continue with IV steroids, IV supplements, patient n.p.o. at this time as he is not communicating verbally or following commands, speech therapy consult ordered for further evaluation. Supplemental oxygen as needed, daily room air saturations, respiratory therapy and pulmonology consult in place. Trend CRP, ferritin, D- dimer levels. Anticipate prolonged hospitalization Hypotension: Patient appears dry, in acute renal failure patient was given fluid boluses in the emergency department currently blood pressure around 90-100 systolic continue with IV fluids overnight. Acute renal failure superimposed on CKD3: Nephrology consulted, renal ultrasound ordered, baseline GFR appears to be around 60, CPK, uric acid levels ordered as well nephrology consult appreciated. Elevated troponin: Likely demand ischemia, trend troponins, monitor on telemetry. Consult cardiology as necessary. History of CVA/dementia: Obtain and continue medications when appropriate/tolerating p.o. Hypernatremia: Continue with D5W, recheck with morning labs. DVT PPX: Lovenox Code status: Full Discharge Plan: Custodial Plan to discharge in: Greater than 2 days - Advance Directives Does patient have a Living Will: No Does patient have a Durable POA for Healthcare: No - Code Status/Comfort Care Code Status Assessed: Yes (Full code) Critical Care: No Time Spent Managing Pts Care (In Minutes): 55
[2021-03-24] MEDS ORDERED: ONDANSETRON 4 MG/2 ML VIAL IV PRN (00:28)
[2021-03-24] MEDS ORDERED: ACETAMINOPHEN 650MG/RECT SUPP PR PRN (00:28)
[2021-03-24] MEDS ORDERED: D5W 1,000 ML IV SCH (00:28)
[2021-03-24 02:27] LABS: Urine Appearance CLOUDY (Clear); Urine Blood 3+ (Negative); Urine Color DK YELLOW (Yellow); Urine Glucose NEGATIVE (Negative); Urine Protein 1+ (Negative); Urine Specific Gravity 1.015 (1.005-1.030); Urine pH 5.5 (5.0-7.0)
[2021-03-24 02:33] LABS: Urine Bilirubin NEGATIVE (Negative); Urine Microscopic Reflex ORDER UMIC
[2021-03-24] MEDS: NOREPINEPHRINE 4 MG in D5W 250 ML IV PRN (02:50)
[2021-03-24] MEDS ORDERED: NOREPINEPHRINE 4 MG/4 ML VIAL ONE (02:56)
[2021-03-24] MEDS ORDERED: D5W 250 ML IV ONE (02:57)
[2021-03-24 03:17] LABS: Urine Bacteria >50 /HPF (NONE SEEN); Urine Coarse Granular Casts 0-5 /LPF (NONE SEEN); Urine Mucus 2+ /HPF (NONE SEEN)
[2021-03-24 03:54] LABS: Absolute Lymphocytes (CBC) 0.9 K/uL (0.7-4.9); Basophils % 0.3 % (0-1.3); Hematocrit 44.8 % (39.6-49.0); Lymphocytes % 13.8 % (15.3-44.8); MPV 9.6 fL (7.6-11.3); RBC Red Blood Cell Count 4.64 M/uL (4.33-5.43)
[2021-03-24 04:37] LABS: Albumin 1.9 g/dL (3.4-5.0); Bilirubin Total 0.6 mg/dL (0.2-1.0); Ferritin 1641.6 ng/mL (26-388); Potassium 4.3 mmol/L (3.5-5.1); Protein, Total 6.4 g/dL (6.4-8.2); Thyroid Stimulating Hormone 0.075 uIU/mL (0.360-3.740); Troponin I 0.1 ng/mL (0.0-0.045)
--- NOTE | 2021-03-24 06:29 | P.PN ---
Subjective Date of Service: 03/24/21 Primary Care Provider: half-way doctor Chief Complaint: Respiratory failure, COVID-19 Subjective: Other (Patient overall stable.) Physical Examination - Vital Signs Temperature: 98.8 F Blood Pressure: 108/80 Pulse: 60 Respirations: 26 Pulse Ox (%): 93 - Studies Laboratory Data (last 24 hrs) 03/23/21 19:15: PT 13.5 H, INR 1.17 03/23/21 19:15: WBC 8.10, Hgb 15.6, Hct 47.0, Plt Count 151 L 03/23/21 19:15: Sodium 147 H, Potassium 4.5, BUN 56 H, Creatinine 3.30 H, Glucose 141 H, Magnesium 3.1 H D, Total Bilirubin 1.0, AST 110 H, ALT 45, Alkaline Phosphatase 33 L Assessment & Plan Discharge Plan: Assisted Plan to discharge in: Greater than 2 days Physician Review Additional Text: COVID: Positive CXR: COMPARISON: Chest Single View dated 11/23/2020; Chest Single View dated 01/07/2019; Chest Single View dated 08/29/2018; Chest Single View dated 04/05/2017 FINDINGS: Portable technique limits examination quality. Mild to moderate bilateral pulmonary opacities are present, which probably represent pulmonary infection/viral infection. The heart is upper limit of normal in size. No displaced fractures. CT Head: COMPARISON: Report from 11/23/2020 TECHNIQUE: Axial CT of the head obtained from the skull apex to the skull base without contrast. This exam was performed according to our departmental dose- optimization program, which includes automated exposure control, adjustment of the mA and/or kV according to patient size and/or use of iterative reconstruction technique. FINDINGS: No acute intracranial hemorrhage identified. No mass, mass effect, shift of the midline, abnormal extra-axial fluid collection or CT evidence of acute ischemic change identified. The ventricular system and sulcal spaces are mildly enlarged compatible with mild cerebral atrophy. Scattered areas of hyp odensity throughout the supratentorial white matter are nonspecific and may be related to chronic small vessel ischemic change. Bifrontal and left temporoparietal encephalomalacia compatible with remote infarctions. Bilateral basal ganglia lacunar type infarctions. Mild mucosal thickening of the right maxillary sinus. Mastoid air cells are well aerated. No skull fracture identified. Visualized orbits and globes are unremarkable. Atherosclerotic calcification of the intracranial internal carotid arteries. IMPRESSION: 1. No acute intracranial abnormality by CT criteria. ECHO: MEASUREMENTS (cm) DIASTOLIC (NORMALS) SYSTOLIC (NORMALS) IVSd 1.1 (0.6-1.2) LA Diam 2.8 (1.9-4.0) LVEF 36% LVIDd 5.9 (3.5-5.7) LVIDs 4.8 (2.0-3.5) %FS 18% LVPWd 1.1 (0.6-1.2) Ao Diam 2.5 (2.0-3.7) DIMENSIONAL ASSESSMENT: RIGHT ATRIUM: NORMAL LEFT ATRIUM: NORMAL RIGHT VENTRICLE: NORMAL LEFT VENTRICLE: NORMAL TRICUSPID VALVE: NORMAL MITRAL VALVE: NORMAL PULMONIC VALVE: NORMAL AORTIC VALVE: NORMAL PERICARDIAL EFFUSION: NONE AORTIC ROOT: NORMAL LEFT VENTRICULAR WALL MOTION: MODERATE GLOBAL HYPOKINESIS. DOPPLER/COLOR FLOW: COMMENTS: MODERATE GLOBAL HYPOKINESIS. LEFT VENTRICULAR EJECTION FRACTION 40%. AORTIC SCLEROSIS WITH NO STENOSIS. NO EFFUSION. Physical Exam: General: Demented HEENT: Other (Mucous membranes dry) Neck: Supple Respiratory: Diminished Cardiovascular: No edema, Normal S1 S2 Capillary refill: <2 Seconds Gastrointestinal: Normal bowel sounds, Soft and benign Musculoskeletal: No contractures, No erythema, No tenderness Integumentary: No tenderness/swelling, No erythema Neurological: Other (Patient currently alert but will not follow commands or communicate verbally.) Impression: Acute hypoxic respiratory failure secondary to COVID-19 pneumonia complicated with UTI Hypotension Acute renal failure superimposed on CKD3 Elevated troponin likely ischemic demand History of CVA/dementia with CT scan showing Bifrontal and left temporoparietal encephalomalacia compatible with remote infarctions and Bilateral basal ganglia lacunar type infarctions Hypernatremia Plan: Acute hypoxic respiratory failure secondary to COVID-19 pneumonia complicated with UTI: Continue IV steroids, supplements. Patient remains n.p.o. Await speech evaluation. Continue physical therapy and Occupational Therapy. Continue with pulmonology recommendations. Continue monitor CRP and ferritin. Patient with UTI. Will start Rocephin. Await culture results. Patient with history of Proteus in the past. Continue IV fluids. Await further recommendations from nephrology. Wean off Levophed. Spoke with daughter at length. Daughter does not want patient to go back to [facility]. Will have social work help in transfer of patient to a different longterm at discharge. Hypotension: Continue IV fluids. Renal function improved. Continue with above plan of care. Acute renal failure superimposed on CKD3: Nephrology consulted, renal ultrasound ordered, baseline GFR appears to be around 60. Continue IV fluids. Continue with above plan of care Elevated troponin likely ischemic demand: Likely demand ischemia, trend troponins, monitor on telemetry. Echocardiogram shows global hypokinesis. Ejection fraction 40% History of CVA/dementia with CT scan showing Bifrontal and left temporoparietal encephalomalacia compatible with remote infarctions and Bilateral basal ganglia lacunar type infarctions: Patient with underlying dementia. Prior CVAs noted. Continue with above plan. Hypernatremia: Continue with IV fluids.. DVT PPX: Lovenox Code status: Full Discharge Plan: Daughter wants patient to go to a different longterm. Time Spent Managing Pts Care (In Minutes): 55
--- NOTE | 2021-03-24 07:43 | EKG ---
Test Date: 2021-03-23 Test Time: 18:57:43 Equipment Operating Engineer: ANDREA MEASUREMENT RESULTS: Intervals: Rate: 96 RI: 112 QRSD: 98 QT: 404 QTc: 510 [place]: P: 63 RI: 112 QRS: -41 T: 234 INTERPRETIVE STATEMENTS: Sinus rhythm with occasional premature ventricular complexes and premature atrial complexes Left axis deviation Inferior infarct, age undetermined ST & T wave abnormality, consider lateral ischemia Prolonged QT Abnormal ECG Compared to ECG 11/23/2020 20:19:37 Ventricular premature complex(es) now present ST (T wave) deviation now present Possible ischemia now present Sinus bradycardia no longer present T-wave abnormality no longer present Myocardial infarct finding still present Electronically Signed On 03-24-21 07:41:51 CDT by Ernesto Blue
[2021-03-24] MEDS: METHYLPREDNISOLONE 40 MG INJ IV SCH ×2 (09:00→20:49)
[2021-03-24] MEDS: THIAMINE 200 MG/2 ML INJ IVP SCH (09:00)
[2021-03-24] MEDS ORDERED: Enoxaparin 120 MG/0.8 ML SYR SQ SCH (09:00)
--- NOTE | 2021-03-24 10:06 | RAD REPORT ---
EXAM DESCRIPTION: CT of the head without contrast CLINICAL HISTORY: CONFUSED COMPARISON: Report from 11/23/2020 TECHNIQUE: Axial CT of the head obtained from the skull apex to the skull base without contrast. Thi s exam was performed according to our departmental dose-optimization program, which includes automate d exposure control, adjustment of the mA and/or kV according to patient size and/or use of iterative reconstruction technique. FINDINGS: No acute intracranial hemorrhage identified. No mass, mass effect, shift of the midline, a bnormal extra-axial fluid collection or CT evidence of acute ischemic change identified. The ventricu lar system and sulcal spaces are mildly enlarged compatible with mild cerebral atrophy. Scattered a reas of hypodensity throughout the supratentorial white matter are nonspecific and may be related to chronic small vessel ischemic change. Bifrontal and left temporoparietal encephalomalacia compatible with remote infarctions. Bilateral basal ganglia lacunar type infarctions. Mild mucosal thickening of the right maxillary sinus. Mastoid air cells are well aerated. No skull fracture identified. Visualized orbits and globes are unremarkable. Atherosclerotic calcification of the intracranial internal carotid arteries. IMPRESSION: 1. No acute intracranial abnormality by CT criteria. Electronically signed by: Aleksey Grajeda 03/23/2021 10:35 PM CDT Due to temporary technical issues with the PACS/Fluency reporting system, reports are being signed by the in house radiologist without review as a courtesy to ensure prompt reporting. The interpreting r adiologist is fully responsible for the content of the report.
[2021-03-24] MEDS ORDERED: METHYLPREDNISOLONE 40 MG INJ ONE (10:09)
[2021-03-24] MEDS ORDERED: ENOXAPARIN 60 MG/0.6 ML SQ ONE (10:09)
[2021-03-24] MEDS ORDERED: THIAMINE 200 MG/2 ML INJ ONE (10:09)
[2021-03-24] MEDS ORDERED: NA CHLORIDE 0.9% 1,000 ML ONE (11:05)
--- NOTE | 2021-03-24 11:31 | ECHO ---
HEIGHT: 6 ft 1 in WEIGHT: 235 lb 0 oz DATE OF STUDY: 03/24/[address]: Valentino Enriquez NP 2-DIMENSIONAL: YES M.MODE: YES DOPPLER: YES COLOR FLOW: YES TDS: NO PORTABLE: YES DEFINITY: NO BUBBLE STUDY: NO DIAGNOSIS: ELEVATED TROPONIN, COVID, HYPOTENSION CARDIAC HISTORY: CATHERIZATION: NO SURGERY: NO PROSTHETIC VALVE: NO PACEMAKER: NO MEASUREMENTS (cm) DIASTOLIC (NORMALS) SYSTOLIC (NORMALS) IVSd 1.1 (0.6-1.2) LA Diam 2.8 (1.9-4.0) LVEF 36% LVIDd 5.9 (3.5-5.7) LVIDs 4.8 (2.0-3.5) %FS 18% LVPWd 1.1 (0.6-1.2) Ao Diam 2.5 (2.0-3.7) 2 DIMENSIONAL ASSESSMENT: RIGHT ATRIUM: NORMAL LEFT ATRIUM: NORMAL RIGHT VENTRICLE: NORMAL LEFT VENTRICLE: NORMAL TRICUSPID VALVE: NORMAL MITRAL VALVE: NORMAL PULMONIC VALVE: NORMAL AORTIC VALVE: NORMAL PERICARDIAL EFFUSION: NONE AORTIC ROOT: NORMAL LEFT VENTRICULAR WALL MOTION: MODERATE GLOBAL HYPOKINESIS. DOPPLER/COLOR FLOW: COMMENTS: MODERATE GLOBAL HYPOKINESIS. LEFT VENTRICULAR EJECTION FRACTION 40%. AORTIC SCLEROSIS WITH NO STENOSIS. NO EFFUSION. TECHNOLOGIST: Jet BOBBY
[2021-03-24] MEDS ORDERED: ENOXAPARIN 40 MG/0.4 ML SQ ONE (13:33)
--- NOTE | 2021-03-24 13:33 | P.CNS ---
Date of Consult: 03/24/21 Primary Care Provider: [facility] doctor Chief Complaint: Respiratory failure, COVID-19 History of Present Illness: Patient is 65 years of age admitted with respiratory failure diagnosis of coronavirus pneumonia [facility] Valentino on nasal cannula oxygen Allergies No Known Drug Allergies Allergy (Verified 01/07/17 02:30) Unknown Home Medications: Aspirin [Aspirin EC 81 MG] 81 mg PO DAILY 11/24/20 Atorvastatin Calcium [Lipitor*] 20 mg PO DAILY 11/24/20 Carvedilol [Coreg] 3.125 mg PO BID 11/24/20 Donepezil [Aricept*] 5 mg PO DAILY 11/24/20 Levetiracetam [Keppra] 1,000 mg PO BID 11/24/20 Losartan Potassium [Cozaar] 100 mg PO DAILY 11/24/20 Memantine HCl [Namenda*] 10 mg PO BID 11/24/20 - Past Medical/Surgical History Diabetic: No -: CVA -: HTN -: high Cholesterol -: Seizures -: GERD -: Femoral stent -: peg tube placement Psychosocial/ Personal History: Patient is currently [facility] resident, disabled. - Family History Mother Medical History: Stroke, Kidney disease Notes: On Dialysis - Social History Smoking Status: Unknown if ever smoked Alcohol use: No CD- Drugs: No Caffeine use: No Place of Residence: [place] Review of Systems is unable to be obtained Physical Examination Temp Pulse Resp BP Pulse Ox 97.5 F 66 37 H 108/73 93 03/24/21 13:00 03/24/21 13:00 03/24/21 13:00 03/24/21 13:00 03/24/21 13:00 Laboratory Data (last 24 hrs) 03/23/21 19:15: PT 13.5 H, INR 1.17 03/23/21 19:15: WBC 8.10, Hgb 15.6, Hct 47.0, Plt Count 151 L 03/23/21 19:15: Sodium 147 H, Potassium 4.5, BUN 56 H, Creatinine 3.30 H, Glucose 141 H, Magnesium 3.1 H D, Total Bilirubin 1.0, AST 110 H, ALT 45, Alkaline Phosphatase 33 L - Problems (1) 2019 novel coronavirus-infected pneumonia (NCIP) Current Visit: Yes Status: Acute Plan: Patient is 65 years of age admitted with respiratory failure from coronavirus renal function is improving chest x-ray shows diffuse coronavirus pneumonia vital signs stable continue with steroids does not qualify for Barcitinib yet he is on 4 L of nasal cannula oxygen changed to Lovenox 40 mg subcu daily
[2021-03-24] MEDS: CEFTRIAXONE/SWI 1gm 1 GM/10 ML SYR IVP SCH (17:57)
[2021-03-24] MEDS: FOLIC ACID 1 MG in NA CHLORIDE 0.9% 50 ML IV SCH (17:57)
[2021-03-24] MEDS: NACHLORIDE 0.45% 1,000 ML IV SCH (17:58)
[2021-03-24] MEDS ORDERED: LORazepam 2 MG/ML VIAL IV PRN (18:09)
[2021-03-24] MEDS: levETIRAcetam 1,000 MG in NA CHLORIDE 0.9% 100 ML IV SCH (20:49)
--- NOTE | 2021-03-24 21:13 | P.CNS ---
Date of Consult: 03/24/21 Reason for Consult: VITALY/ CKD Requesting Physician: Pablo Cooper Primary Care Provider: prison doctor Chief Complaint: Respiratory failure, COVID-19 History of Present Illness: 65-year-old currently residing at [facility] was transported to the emergency department for respiratory distress. Patient tested positive for Covid on 03/13/2021, is not vaccinated. Upon arrival to the emergency department patient was hypoxic saturating in 80s and hypotensive with a blood pressure of 80/66, patient had difficult venous access and therefore central line was inserted. Further evaluation revealed labs significant for D-dimer 1026 sodium 147 chloride 118 creatinine 3.3 BUN 56 GFR 23 glucose 141 ferritin 1668 magnesium 3.1 AST 110 alk phos 33 troponin 0 0.13 C-reactive protein 154 BNP 1102 procalcitonin 0.65 chest x-ray demonstrates mild to moderate bilateral pulmonary opacities. Attempted to reach out to prison, staff unavailable for questioning, spoke with sister who informed that patient usually communicates verbally and will feed himself, at this time patient not following any verbal commands or communicating verbally, CT head ordered and pending. Patient currently on nasal cannula at 6 to 7 L saturating the low 90s, ED provider wishes to admit for further evaluation and management. 18:29 This 65 yrs old Black Male presents to ER via Unassigned with complaints of SOB, COVID emerson AND HYPOXIA. 18:29 The patient has shortness of breath at rest. Onset: The symptoms/episode began/occurred emerson 3 day(s) ago. Duration: The symptoms are continuous, and are steadily getting worse. The patient's shortness of breath is aggravated by coughing. The patient or guardian reports airway noise, cough, that is intermittent, difficulty breathing. Modifying factors: The symptoms are alleviated by nothing. the symptoms are aggravated by nothing. HYPOXIA, 5 DAYS SYMPTOMS. Associated signs and symptoms: Pertinent positives: non-productive cough, nausea. Severity of symptoms: At their worst the symptoms were mild moderate in the emergency department the symptoms are unchanged. Associated signs and symptoms: The patient has no apparent associated signs or symptoms. Allergies No Known Drug Allergies Allergy (Verified 01/07/17 02:30) Unknown Home medications list reviewed: Yes Home Medications: Aspirin [Aspirin EC 81 MG] 81 mg PO DAILY 11/24/20 Atorvastatin Calcium [Lipitor*] 20 mg PO DAILY 11/24/20 Carvedilol [Coreg] 3.125 mg PO BID 11/24/20 Donepezil [Aricept*] 5 mg PO DAILY 11/24/20 Levetiracetam [Keppra] 1,000 mg PO BID 11/24/20 Losartan Potassium [Cozaar] 100 mg PO DAILY 11/24/20 Memantine HCl [Namenda*] 10 mg PO BID 11/24/20 - Past Medical/Surgical History Diabetic: No -: CVA -: HTN -: high Cholesterol -: Seizures -: GERD -: Femoral stent -: peg tube placement Psychosocial/ Personal History: Patient is currently prison resident, disabled. - Family History Mother Medical History: Stroke, Kidney disease Notes: On Dialysis - Social History Smoking Status: Unknown if ever smoked Alcohol use: No CD- Drugs: No Caffeine use: No Place of Residence: [facility] Review of Systems is unable to be obtained Respiratory: SOB with Excertion Neurological: Weakness Physical Examination Temp Pulse Resp BP Pulse Ox 98.7 F 67 31 H 101/78 90 L 03/24/21 16:00 03/24/21 18:45 03/24/21 18:45 03/24/21 18:45 03/24/21 18:45 General: Cooperative, Mild distress, Confused HEENT: Atraumatic Neck: Supple Respiratory: Diminished Cardiovascular: No edema, Regular rate/rhythm Gastrointestinal: Soft and benign, Non-distended Musculoskeletal: No clubbing, No contractures Integumentary: No rashes, No cyanosis Neurological: Abnormal speech External genitalia: No edema Blood work reviewed in the chart. Imagings Data: EXAM DESCRIPTION: RAD - Chest Single View - 03/23/2021 6:49 pm CLINICAL HISTORY: COUGH Chest pain. COMPARISON: Chest Single View dated 11/23/2020; Chest Single View dated 01/07/2019; Chest Single View dated 08/29/2018; Chest Single View dated 04/05/2017 FINDINGS: Portable technique limits examination quality. Mild to moderate bilateral pulmonary opacities are present, which probably represent pulmonary infection/viral infection. The heart is upper limit of normal in size. No displaced fractures. EXAM DESCRIPTION: CT of the head without contrast CLINICAL HISTORY: CONFUSED COMPARISON: Report from 11/23/2020 TECHNIQUE: Axial CT of the head obtained from the skull apex to the skull base without contrast. This exam was performed according to our departmental dose- optimization program, which includes automated exposure control, adjustment of the mA and/or kV according to patient size and/or use of iterative reconstruction technique. FINDINGS: No acute intracranial hemorrhage identified. No mass, mass effect, shift of the midline, abnormal extra-axial fluid collection or CT evidence of acute ischemic change identified. The ventricular system and sulcal spaces are mildly enlarged compatible with mild cerebral atrophy. Scattered areas of hypodensity throughout the supratentorial white matter are nonspecific and may be related to chronic small vessel ischemic change. Bifrontal and left temporoparietal encephalomalacia compatible with remote infarctions. Bilateral basal ganglia lacunar type infarctions. Mild mucosal thickening of the right maxillary sinus. Mastoid air cells are well aerated. No skull fracture identified. Visualized orbits and globes are unremarkable. Atherosclerotic calcification of the intracranial internal carotid arteries. IMPRESSION: 1. No acute intracranial abnormality by CT criteria. LEFT VENTRICULAR WALL MOTION: MODERATE GLOBAL HYPOKINESIS. DOPPLER/COLOR FLOW: COMMENTS: MODERATE GLOBAL HYPOKINESIS. LEFT VENTRICULAR EJECTION FRACTION 40%. AORTIC SCLEROSIS WITH NO STENOSIS. NO EFFUSION. Conclusions/Impression: VITALY in the setting of sepsis/ hypotension CKD III with proteinuria -No NSAIDs -Continue IVF with 1/2NS Hypernatremia -IVF with 1/2NS Septic Shock/ Hypotension -Continue IVF -Continue Norepi to maintain perfusion Rhabdomyolysis -Continue IVF Systolic CHF, chronic -Low sodium diet -Daily weight Hyperglycemia secondary steroids -Consider RISS Severe malnutrition -Encourage nutrition -Recommend protein supplementation COVID-19 PNA -Continue Solumedrol -Continue Rocephin Thank you kindly for the consultation. Case reviewed with Dr. Cooper Critical Care: Yes (>30min)
[2021-03-25 05:07] LABS: Absolute Lymphocytes (CBC) 0.8 K/uL (0.7-4.9); Basophils % 0.2 % (0-1.3); Hematocrit 44.7 % (39.6-49.0); Lymphocytes % 6.8 % (15.3-44.8); MPV 9.6 fL (7.6-11.3)
--- NOTE | 2021-03-25 06:01 | P.PN ---
Subjective Date of Service: 03/25/21 Primary Care Provider: long term doctor Chief Complaint: Respiratory failure, COVID-19 Subjective: Other (Patient more alert today. Overall stable. Oxygen requirement now up to 15 L) Physical Examination - Vital Signs Temperature: 96.9 F Blood Pressure: 107/66 Pulse: 70 Respirations: 31 Pulse Ox (%): 97 Assessment & Plan Discharge Plan: [facility] Plan to discharge in: Greater than 2 days Physician Review Additional Text: COVID: Positive CXR: COMPARISON: Chest Single View dated 11/23/2020; Chest Single View dated 01/07/2019; Chest Single View dated 08/29/2018; Chest Single View dated 04/05/2017 FINDINGS: Portable technique limits examination quality. Mild to moderate bilateral pulmonary opacities are present, which probably represent pulmonary infection/viral infection. The heart is upper limit of normal in size. No displaced fractures. CT Head: COMPARISON: Report from 11/23/2020 TECHNIQUE: Axial CT of the head obtained from the skull apex to the skull base without contrast. This exam was performed according to our departmental dose- optimization program, which includes automated exposure control, adjustment of the mA and/or kV according to patient size and/or use of iterative reconstruction technique. FINDINGS: No acute intracranial hemorrhage identified. No mass, mass effect, shift of the midline, abnormal extra-axial fluid collection or CT evidence of acute ischemic change identified. The ventricular system and sulcal spaces are mildly enlarged compatible with mild cerebral atrophy. Scattered areas of hypodensity throughout the supratentorial white matter are nonspecific and may be related to chronic small vessel ischemic change. Bifrontal and left te mporoparietal encephalomalacia compatible with remote infarctions. Bilateral basal ganglia lacunar type infarctions. Mild mucosal thickening of the right maxillary sinus. Mastoid air cells are well aerated. No skull fracture identified. Visualized orbits and globes are unremarkable. Atherosclerotic calcification of the intracranial internal carotid arteries. IMPRESSION: 1. No acute intracranial abnormality by CT criteria. ECHO: MEASUREMENTS (cm) DIASTOLIC (NORMALS) SYSTOLIC (NORMALS) IVSd 1.1 (0.6-1.2) LA Diam 2.8 (1.9-4.0) LVEF 36% LVIDd 5.9 (3.5-5.7) LVIDs 4.8 (2.0-3.5) %FS 18% LVPWd 1.1 (0.6-1.2) Ao Diam 2.5 (2.0-3.7) DIMENSIONAL ASSESSMENT: RIGHT ATRIUM: NORMAL LEFT ATRIUM: NORMAL RIGHT VENTRICLE: NORMAL LEFT VENTRICLE: NORMAL TRICUSPID VALVE: NORMAL MITRAL VALVE: NORMAL PULMONIC VALVE: NORMAL AORTIC VALVE: NORMAL PERICARDIAL EFFUSION: NONE AORTIC ROOT: NORMAL LEFT VENTRICULAR WALL MOTION: MODERATE GLOBAL HYPOKINESIS. DOPPLER/COLOR FLOW: COMMENTS: MODERATE GLOBAL HYPOKINESIS. LEFT VENTRICULAR EJECTION FRACTION 40%. AORTIC SCLEROSIS WITH NO STENOSIS. NO EFFUSION. Follow up CXR: COMPARISON: March 23 FINDINGS: Mild improvement bilateral pulmonary opacities Heart remains enlarged IMPRESSION: Mild improvement in bilateral pulmonary opacities probably pneumoniae Physical Exam: General: Demented. Patient more alert HEENT: Neck supple Respiratory: Diminished. Currently on 15 L Cardiovascular: No edema, Normal S1 S2 Capillary refill: <2 Seconds Gastrointestinal: Normal bowel sounds, Soft and benign Musculoskeletal: No contractures, No erythema, No tenderness Integumentary: No tenderness/swelling, No erythema Neurological: Patient more alert. Dementia noted Impression: Acute hypoxic respiratory failure secondary to COVID-19 pneumonia complicated with UTI Hypotension Acute renal failure superimposed on CKD3 Elevated troponin likely ischemic demand History of CVA/dementia with CT scan showing Bifrontal and left temporoparietal encephalomalacia compatible with remote infarctions and Bilateral basal ganglia lacunar type infarctions Hypernatremia Seizure disorder Plan: Acute hypoxic respiratory failure secondary to COVID-19 pneumonia complicated with UTI: IV fluids adjusted by pulmonology. Continue with continue IV steroids, supplements. Patient remains n.p.o. Await speech evaluation. Continue physical therapy and Occupational Therapy. long term medications restarted. Patient off Levophed. Bolus IV fluid given. Await further recommendations from nephrology. Daughter wants patient to go to a different group home. Social work consulted to help with this. Hypotension: Continue IV fluids. Renal function improved. Continue with above plan of care. Acute renal failure superimposed on CKD3: Nephrology consulted, renal ultrasound ordered, baseline GFR appears to be around 60. Continue IV fluids. Continue with above plan of care Elevated troponin likely ischemic demand: Likely demand ischemia, trend troponins, monitor on telemetry. Echocardiogram shows global hypokinesis. Ejection fraction 40% History of CVA/dementia with CT scan showing Bifrontal and left temporoparietal encephalomalacia compatible with remote infarctions and Bilateral basal ganglia lacunar type infarctions: Patient with underlying dementia. Prior CVAs noted. Continue with above plan. Hypernatremia: Continue with IV fluids.. Seizure disorder: Continue with medication DVT PPX: Lovenox Code status: Full Discharge Plan: Daughter wants patient to go to a different group home. Time Spent Managing Pts Care (In Minutes): 55
[2021-03-25 06:17] LABS: Albumin 2.1 g/dL (3.4-5.0); Bilirubin Total 0.6 mg/dL (0.2-1.0); C-Reactive Protein 68.4 mg/L (<3.00); Ferritin 2015.7 ng/mL (26-388); Potassium 4.2 mmol/L (3.5-5.1); Protein, Total 6.6 g/dL (6.4-8.2)
[2021-03-25] MEDS: NACHLORIDE 0.45% 1,000 ML IV SCH (06:30)
--- NOTE | 2021-03-25 07:39 | RAD REPORT ---
EXAM DESCRIPTION: Shira Single View03/25/2021 7:11 am CLINICAL HISTORY: Shortness breath COMPARISON: March 23 FINDINGS: Mild improvement bilateral pulmonary opacities Heart remains enlarged IMPRESSION: Mild improvement in bilateral pulmonary opacities probably pneumoniae
[2021-03-25] MEDS: THIAMINE 200 MG/2 ML INJ IVP SCH (09:00)
[2021-03-25] MEDS ORDERED: FOLIC ACID 5 MG/ML VIAL IVP SCH (09:00)
[2021-03-25] MEDS: CEFTRIAXONE/SWI 1gm 1 GM/10 ML SYR IVP SCH (09:00)
[2021-03-25] MEDS: levETIRAcetam 1,000 MG in NA CHLORIDE 0.9% 100 ML IV SCH ×2 (09:00→20:27)
[2021-03-25] MEDS: METHYLPREDNISOLONE 40 MG INJ IV SCH ×2 (09:00→20:28)
[2021-03-25] MEDS: FOLIC ACID 1 MG in NA CHLORIDE 0.9% 50 ML IV SCH (09:00)
--- NOTE | 2021-03-25 12:12 | P.PN ---
Subjective Date of Service: 03/25/21 Primary Care Provider: skilled nursing doctor Chief Complaint: Respiratory failure, COVID-19 No significant change still very hypoxic Review of Systems is unable to be obtained Physical Examination - Vital Signs Temperature: 97.1 F Blood Pressure: 96/72 Pulse: 79 Respirations: 34 Pulse Ox (%): 89 - Physical Exam General: Unresponsive Assessment & Plan - Problems (Diagnosis) (1) 2018 novel coronavirus-infected pneumonia (NCIP) Current Visit: Yes Status: Acute Plan: Respiratory failure patient is hyponatremic patient is hypernatremic patient will qualify it now for Barcitinib I have changed his fluids to D5 half-normal saline prognosis poor renal function is improving Physician Review Additional Text: COVID: Positive CXR: COMPARISON: Chest Single View dated 11/23/2020; Chest Single View dated 12/20; Chest Single View dated 08/29/2018; Chest Single View dated 04/05/2017 FINDINGS: Portable technique limits examination quality. Mild to moderate bilateral pulmonary opacities are present, which probably represent pulmonary infection/viral infection. The heart is upper limit of normal in size. No displaced fractures. CT Head: COMPARISON: Report from 11/23/2020 TECHNIQUE: Axial CT of the head obtained from the skull apex to the skull base without contrast. This exam was performed according to our departmental dose- optimization program, which includes automated exposure control, adjustment of the mA and/or kV according to patient size and/or use of iterative reconstruction technique. FINDINGS: No acute intracranial hemorrhage identified. No mass, mass effect, shift of the midline, abnormal extra-axial fluid collection or CT evidence of acute ischemic change identified. The ventricular system and sulcal spaces are mildly enlarged compatible with mild cerebral atrophy. Scattered areas of hypodensity throughout the supratentorial white matter are nonspecific and may be related to chronic small vessel ischemic change. Bifrontal and left temporoparietal encephalomalacia compatible with remote infarctions. Bilateral basal ganglia lacunar type infarctions. Mild mucosal thickening of the right maxillary sinus. Mastoid air cells are well aerated. No skull fracture identified. Visualized orbits and globes are unremarkable. Atherosclerotic calcification of the intracranial internal carotid arteries. IMPRESSION: 1. No acute intracranial abnormality by CT criteria. ECHO: MEASUREMENTS (cm) DIASTOLIC (NORMALS) SYSTOLIC (NORMALS) IVSd 1.1 (0.6-1.2) LA Diam 2.8 (1.9-4.0) LVEF 36% LVIDd 5.9 (3.5-5.7) LVIDs 4.8 (2.0-3.5) %FS 18% LVPWd 1.1 (0.6-1.2) Ao Diam 2.5 (2.0-3.7) DIMENSIONAL ASSESSMENT: RIGHT ATRIUM: NORMAL LEFT ATRIUM: NORMAL RIGHT VENTRICLE: NORMAL LEFT VENTRICLE: NORMAL TRICUSPID VALVE: NORMAL MITRAL VALVE: NORMAL PULMONIC VALVE: NORMAL AORTIC VALVE: NORMAL PERICARDIAL EFFUSION: NONE AORTIC ROOT: NORMAL LEFT VENTRICULAR WALL MOTION: MODERATE GLOBAL HYPOKINESIS. DOPPLER/COLOR FLOW: COMMENTS: MODERATE GLOBAL HYPOKINESIS. LEFT VENTRICULAR EJECTION FRACTION 40%. AORTIC SCLEROSIS WITH NO STENOSIS. NO EFFUSION. Physical Exam: General: Demented HEENT: Other (Mucous membranes dry) Neck: Supple Respiratory: Diminished Cardiovascular: No edema, Normal S1 S2 Capillary refill: <2 Seconds Gastrointestinal: Normal bowel sounds, Soft and benign Musculoskeletal: No contractures, No erythema, No tenderness Integumentary: No tenderness/swelling, No erythema Neurological: Other (Patient currently alert but will not follow commands or communicate verbally.) Impression: Acute hypoxic respiratory failure secondary to COVID-19 pneumonia complicated with UTI Hypotension Acute renal failure superimposed on CKD3 Elevated troponin likely ischemic demand History of CVA/dementia with CT scan showing Bifrontal and left temporoparietal encephalomalacia compatible with remote infarctions and Bilateral basal ganglia lacunar type infarctions Hypernatremia Plan: Acute hypoxic respiratory failure secondary to COVID-19 pneumonia complicated with UTI: Continue IV steroids, supplements. Patient remains n.p.o. Await speech evaluation. Continue physical therapy and Occupational Therapy. Continue with pulmonology recommendations. Continue monitor CRP and ferritin. Patient with UTI. Will start Rocephin. Await culture results. Patient with history of Proteus in the past. Continue IV fluids. Await further recommendations from nephrology. Wean off Levophed. Spoke with daughter at length. Daughter does not want patient to go back to [facility]. Will have social work help in transfer of patient to a different senior care at discharge. Hypotension: Continue IV fluids. Renal function improved. Continue with above plan of care. Acute renal failure superimposed on CKD3: Nephrology consulted, renal ultrasound ordered, baseline GFR appears to be around 60. Continue IV fluids. Continue with above plan of care Elevated troponin likely ischemic demand: Likely demand ischemia, trend troponins, monitor on telemetry. Echocardiogram shows global hypokinesis. Ejection fraction 40% History of CVA/dementia with CT scan showing Bifrontal and left temporoparietal encephalomalacia compatible with remote infarctions and Bilateral basal ganglia lacunar type infarctions: Patient with underlying dementia. Prior CVAs noted. Continue with above plan. Hypernatremia: Continue with IV fluids.. DVT PPX: Lovenox Code status: Full Discharge Plan: Daughter wants patient to go to a different senior care.
[2021-03-25] MEDS: D5 0.45 NS 1,000 ML IV SCH (14:37)
--- NOTE | 2021-03-25 15:13 | PN ---
Date of Progress Note: 03/25/2021 Subjective: The patient was seen and examined in the ICU. He remains confused and he is mildly trem leena. Physical Examination: Vital Signs: Showing temperature of 96.9, pulse rate of 82, respiratory rate of 20 to 30, blood pres sure 96/78. He has half-normal saline going at 75 mL an hour. He is off all pressors. General: He is tremulous. HEENT: Atraumatic head. Lungs: Auscultation of lungs revealed bilateral crackles with diminished breath sounds overall. Extremities: Showed no evidence of edema. Abdomen: Soft and nontender. Neurologic: He is alert, but confused. Laboratory Data: At this time showing sodium of 149, potassium of 4.2, chloride of 118, bicarb of 22 , BUN of 49, and creatinine of 1.87. His ferritin is elevated to 2015. C-reactive protein has impro arley from 127 down to 68 and CBC showing stable hemoglobin, hematocrit, and platelet count. Current Medications: Have been reviewed in detail. Impression: 1.Acute renal failure secondary to acute tubular necrosis from ongoing COVID-19 pneumonia. The marilee ent's renal function is improving at this time. 2.Hypernatremia. The patient is on D5 half NS at 100 mL an hour. The nurse is planning to place a Dobhoff tube in him. I will plan to initiate free water at 200 mL every 4 hours and we will also get the tube feeds started at that time. 3.COVID-19 pneumonia, remains on antibiotics and also on Solu-Medrol for treatment. 4.Hypotension, currently stable. Off all pressors at this time. Plan: Overall the patient is doing okay at this time. Continue to monitor closely. Inflammatory ma rkers are improving. Hypernatremia will be corrected with free water through the Dobhoff tube as joshua erated. Continue management for COVID-19 pneumonia and follow up closely. VV/MODL Voice ID: [id number] Report ID: [id number]
--- NOTE | 2021-03-25 15:45 | RAD REPORT ---
EXAM DESCRIPTION: RAD - Abdomen 1 View (KUB) - 03/25/2021 3:30 pm CLINICAL HISTORY: Device placement nasogastric tube placement FINDINGS: Nasogastric tube is coiled within the esophagus. The tip is pointing cranially and lies w ithin the proximal esophagus
--- NOTE | 2021-03-25 16:16 | RAD REPORT ---
EXAM DESCRIPTION: RAD - Abdomen Single View - 03/25/2021 4:06 pm CLINICAL HISTORY: Device placement NG tube placement FINDINGS: A nasogastric tube is coiled within the stomach. The tip lies within the gastric fundus
[2021-03-25] MEDS: LORazepam 2 MG/ML VIAL IV PRN (18:09)
[2021-03-25] MEDS: BARICITINIB 2 MG TABLET PO SCH (18:09)
[2021-03-25] MEDS: NEPRO 1,000 ML BOT FT SCH (18:12)
[2021-03-25] MEDS: MEMANTINE HCL 10 MG TABLET PO SCH (20:27)
[2021-03-25] MEDS ORDERED: DONEPEZIL HCL 5 MG TAB PO SCH (21:00)
[2021-03-26] MEDS: D5 0.45 NS 1,000 ML IV SCH ×2 (00:13→10:46)
[2021-03-26] MEDS: LORazepam 2 MG/ML VIAL IV PRN ×2 (03:21→18:15)
--- NOTE | 2021-03-26 05:55 | P.PN ---
Subjective Date of Service: 03/26/21 Primary Care Provider: half-way doctor Chief Complaint: Respiratory failure, COVID-19 Subjective: Demented, Other (Overall stable on 15 liters and nonrebreather) Physical Examination - Vital Signs Temperature: 97 F Blood Pressure: 107/76 Pulse: 84 Respirations: 34 Pulse Ox (%): 94 Assessment & Plan Discharge Plan: Intermediate Plan to discharge in: Greater than 2 days Physician Review Additional Text: COVID: Positive CXR: COMPARISON: Chest Single View dated 11/23/2020; Chest Single View dated 01/07/2019; Chest Single View dated 08/29/2018; Chest Single View dated 04/05/2017 FINDINGS: Portable technique limits examination quality. Mild to moderate bilateral pulmonary opacities are present, which probably represent pulmonary infection/viral infection. The heart is upper limit of normal in size. No displaced fractures. CT Head: COMPARISON: Report from 11/23/2020 TECHNIQUE: Axial CT of the head obtained from the skull apex to the skull base without contrast. This exam was performed according to our departmental dose- optimization program, which includes automated exposure control, adjustment of the mA and/or kV according to patient size and/or use of iterative reconstruction technique. FINDINGS: No acute intracranial hemorrhage identified. No mass, mass effect, shift of the midline, abnormal extra-axial fluid collection or CT evidence of acute ischemic change identified. The ventricular system and sulcal spaces are mildly enlarged compatible with mild cerebral atrophy. Scattered areas of hypodensity throughout the supratentorial white matter are nonspecific and may be related to chronic small vessel ischemic change. Bifrontal and left temporoparietal encephalomalacia compatible with remote infarctions. Bilateral basal ganglia lacunar type infarctions. Mild mucosal thickening of the right maxillary sinus. Mastoid air cells are well aerated. No skull fracture identified. Visualized orbits and globes are unremarkable. Atherosclerotic calcification of the intracranial internal carotid arteries. IMPRESSION: 1. No acute intracranial abnormality by CT criteria. ECHO: MEASUREMENTS (cm) DIASTOLIC (NORMALS) SYSTOLIC (NORMALS) IVSd 1.1 (0.6-1.2) LA Diam 2.8 (1.9-4.0) LVEF 36% LVIDd 5.9 (3.5-5.7) LVIDs 4.8 (2.0-3.5) %FS 18% LVPWd 1.1 (0.6-1.2) Ao Diam 2.5 (2.0-3.7) DIMENSIONAL ASSESSMENT: RIGHT ATRIUM: NORMAL LEFT ATRIUM: NORMAL RIGHT VENTRICLE: NORMAL LEFT VENTRICLE: NORMAL TRICUSPID VALVE: NORMAL MITRAL VALVE: NORMAL PULMONIC VALVE: NORMAL AORTIC VALVE: NORMAL PERICARDIAL EFFUSION: NONE AORTIC ROOT: NORMAL LEFT VENTRICULAR WALL MOTION: MODERATE GLOBAL HYPOKINESIS. DOPPLER/COLOR FLOW: COMMENTS: MODERATE GLOBAL HYPOKINESIS. LEFT VENTRICULAR EJECTION FRACTION 40%. AORTIC SCLEROSIS WITH NO STENOSIS. NO EFFUSION. Follow up CXR: COMPARISON: March 23 FINDINGS: Mild improvement bilateral pulmonary opacities Heart remains enlarged IMPRESSION: Mild improvement in bilateral pulmonary opacities probably pneumoniae Physical Exam: General: Demented. Patient more alert HEENT: Neck supple Respiratory: Diminished. Currently on 15 L Cardiovascular: No edema, Normal S1 S2 Capillary refill: <2 Seconds Gastrointestinal: Normal bowel sounds, Soft and benign. Dobhoff in place Musculoskeletal: No contractures, No erythema, No tenderness Integumentary: No tenderness/swelling, No erythema Neurological: Patient more alert. Dementia noted Impression: Acute hypoxic respiratory failure secondary to COVID-19 pneumonia complicated with UTI Hypotension Acute renal failure superimposed on CKD3 Elevated troponin likely ischemic demand History of CVA/dementia with CT scan showing Bifrontal and left temporoparietal encephalomalacia compatible with remote infarctions and Bilateral basal ganglia lacunar type infarctions Hypernatremia Seizure disorder Plan: Acute hypoxic respiratory failure secondary to COVID-19 pneumonia complicated with UTI: Overall stable. Currently on 15 liters and nonrebreather. Continue with IV fluids. Continue with continue IV steroids, supplements. Patient remains n.p.o. Await speech evaluation. Continue physical therapy and Occupational T herapy. half-way medications restarted. Patient off Levophed. Continue with Dobhoff feeds. Daughter wants patient to go to a different alf. Social work consulted to help with this. I will turn the service over to the hospitalist team tomorrow. I will go over the plan of care with him. Hypotension: Continue IV fluids. Renal function improved. Continue with above plan of care. Acute renal failure superimposed on CKD3: Renal function improved. Nephrology consulted. Baseline GFR appears to be around 60. Continue IV fluids. Continue with above plan of care Elevated troponin likely ischemic demand: Likely demand ischemia, trend troponins, monitor on telemetry. Echocardiogram shows global hypokinesis. Eje ction fraction 40%. No cardiac intervention needed. History of CVA/dementia with CT scan showing Bifrontal and left temporoparietal encephalomalacia compatible with remote infarctions and Bilateral basal ganglia lacunar type infarctions: Patient with underlying dementia. Prior CVAs noted. Continue with above plan. Speech to assess. Continue with PT/OT. Continue with IV fluids and Dobhoff feeds. Hypernatremia: Improving. Continue with IV fluids.. Seizure disorder: Continue with medication DVT PPX: Lovenox Code status: Full Discharge Plan: Daughter wants patient to go to a different alf. Time Spent Managing Pts Care (In Minutes): 55
[2021-03-26 05:59] LABS: Absolute Lymphocytes (CBC) 0.4 K/uL (0.7-4.9); Basophils % 0.2 % (0-1.3); Hematocrit 43.2 % (39.6-49.0); Lymphocytes % 3.9 % (15.3-44.8); MPV 9.3 fL (7.6-11.3); RBC Red Blood Cell Count 4.51 M/uL (4.33-5.43)
[2021-03-26 06:30] LABS: Albumin 1.9 g/dL (3.4-5.0); Bilirubin Total 0.4 mg/dL (0.2-1.0); C-Reactive Protein 48.9 mg/L (<3.00); Ferritin 1528.2 ng/mL (26-388); Potassium 4.3 mmol/L (3.5-5.1); Protein, Total 6.2 g/dL (6.4-8.2)
[2021-03-26 08:24] LABS: Blood Morphology Comment NOT SEEN (NOT SEEN); Platelet Estimate ADEQ; White Blood Cell Scan OK (OK)
[2021-03-26] MEDS: BARICITINIB 2 MG TABLET PO SCH (08:51)
[2021-03-26] MEDS: METHYLPREDNISOLONE 40 MG INJ IV SCH ×2 (08:51→20:11)
[2021-03-26] MEDS: MEMANTINE HCL 10 MG TABLET PO SCH (08:51)
[2021-03-26] MEDS: ATORVASTATIN 20 MG TAB PO SCH (08:51)
[2021-03-26] MEDS: THIAMINE 200 MG/2 ML INJ IVP SCH (08:51)
[2021-03-26] MEDS: ASPIRIN EC 81 MG TAB PO SCH (08:51)
[2021-03-26] MEDS: levETIRAcetam 1,000 MG in NA CHLORIDE 0.9% 100 ML IV SCH ×2 (08:52→20:11)
[2021-03-26] MEDS: CEFTRIAXONE/SWI 1gm 1 GM/10 ML SYR IVP SCH (08:54)
[2021-03-26] MEDS ORDERED: DONEPEZIL HCL 5 MG TAB PO SCH (09:00)
[2021-03-26] MEDS: FOLIC ACID 1 MG in NA CHLORIDE 0.9% 50 ML IV SCH (10:26)
--- NOTE | 2021-03-26 19:02 | PN ---
Date of Progress Note: 03/26/2021 Subjective: The patient was seen and examined at bedside. Physical Examination: Vital Signs: Have been reviewed. Blood pressures are stable; however, he remains on high-flow oxyge n and on BiPAP. General: He appears cachectic and malnourished. HEENT: Atraumatic head. Lungs: Diminished breath sounds overall. Extremities: No evidence of edema. Laboratory Data: Showing a BUN of 44, creatinine of 1.47, and sodium persistently elevated to 149. CBC showing stable hemoglobin, hematocrit, and platelet count. Current Medications: Have been reviewed in detail. Impression: 1.Acute renal failure, secondary to acute tubular necrosis and dehydration, improving. 2.Hypernatremia. Remains on free water and also on half normal saline. 3.Respiratory failure, secondary to COVID-19 pneumonia. 4.Hypotension, stable. 5.History of cerebrovascular accident and dementia. Plan: The patient's renal function is slowly improving. I will go ahead and change the IV fluids fr om half NS to D5 water and monitor him closely. Continue free water through the NG tube as well and follow up closely. VV/MODL Voice ID: [id number] Report ID: [id number]
--- NOTE | 2021-03-26 19:13 | P.PN ---
Subjective Date of Service: 03/26/21 Primary Care Provider: skilled nursing doctor Chief Complaint: Respiratory failure, COVID-19 No significant change still very hypoxic/NC Review of Systems is unable to be obtained Physical Examination - Vital Signs Temperature: 96.9 F Blood Pressure: 102/13 Pulse: 89 Respirations: 34 Pulse Ox (%): 87 - Physical Exam General: Unresponsive Assessment & Plan - Problems (Diagnosis) (1) 2019 novel coronavirus-infected pneumonia (NCIP) Current Visit: Yes Status: Acute Plan: Resp failure hypernatremia./ on D5 W/ Renal functin improving/ prog poor/ on 15 l of o2/ Dementia /CXRy on 03/25 mild improvement
[2021-03-26] MEDS: D5W 1,000 ML IV SCH (20:12)
[2021-03-26] MEDS ORDERED: D5W 1,000 ML IV ONE (20:23)
[2021-03-27] MEDS: NEPRO 1,000 ML BOT FT SCH ×2 (00:30→21:04)
[2021-03-27] MEDS: LORazepam 2 MG/ML VIAL IV PRN ×2 (02:47→09:43)
[2021-03-27 05:32] LABS: Absolute Lymphocytes (CBC) 0.6 K/uL (0.7-4.9); Basophils % 0.2 % (0-1.3); Hematocrit 43.9 % (39.6-49.0); MPV 9.4 fL (7.6-11.3); RBC Red Blood Cell Count 4.59 M/uL (4.33-5.43)
[2021-03-27 05:55] LABS: Albumin 1.9 g/dL (3.4-5.0); Bilirubin Total 0.4 mg/dL (0.2-1.0); C-Reactive Protein 23.8 mg/L (<3.00); Ferritin 1241.4 ng/mL (26-388); Potassium 4.2 mmol/L (3.5-5.1); Protein, Total 6.3 g/dL (6.4-8.2)
[2021-03-27] MEDS: FOLIC ACID 1 MG in NA CHLORIDE 0.9% 50 ML IV SCH (09:14)
[2021-03-27] MEDS: levETIRAcetam 1,000 MG in NA CHLORIDE 0.9% 100 ML IV SCH ×2 (09:14→21:01)
[2021-03-27] MEDS: METHYLPREDNISOLONE 40 MG INJ IV SCH ×2 (09:15→21:00)
[2021-03-27] MEDS: ASPIRIN EC 81 MG TAB PO SCH (09:15)
[2021-03-27] MEDS: CEFTRIAXONE/SWI 1gm 1 GM/10 ML SYR IVP SCH (09:15)
[2021-03-27] MEDS: BARICITINIB 2 MG TABLET PO SCH (09:15)
[2021-03-27] MEDS: THIAMINE 200 MG/2 ML INJ IVP SCH (09:15)
[2021-03-27] MEDS: ATORVASTATIN 20 MG TAB PO SCH (09:16)
[2021-03-27] MEDS: D5W 1,000 ML IV SCH ×3 (09:41→20:39)
--- NOTE | 2021-03-27 11:03 | P.PN ---
Subjective Date of Service: 03/27/21 Primary Care Provider: half-way doctor Chief Complaint: Respiratory failure, COVID-19 Not doing well very hypoxic on maximum oxygen white count is elevated patient unresponsive Review of Systems is unable to be obtained Physical Examination - Vital Signs Temperature: 97.9 F Blood Pressure: 129/81 Pulse: 106 Respirations: 39 Pulse Ox (%): 91 - Physical Exam General: Unresponsive Assessment & Plan - Problems (Diagnosis) (1) 2018 novel coronavirus-infected pneumonia (NCIP) Current Visit: Yes Status: Acute Plan: Respiratory failure hyponatremia no change renal function is improving increase IV fluid 200 cc an hour blood cultures negative Physician Review Additional Text: COVID: Positive CXR: COMPARISON: Chest Single View dated 11/23/2020; Chest Single View dated 01/07/2019; Chest Single View dated 08/29/2018; Chest Single View dated 04/05/2017 FINDINGS: Portable technique limits examination quality. Mild to moderate bilateral pulmonary opacities are present, which probably represent pulmonary infection/viral infection. The heart is upper limit of normal in size. No displaced fractures. CT Head: COMPARISON: Report from 11/23/2020 TECHNIQUE: Axial CT of the head obtained from the skull apex to the skull base without contrast. This exam was performed according to our departmental dose- optimization program, which includes automated exposure control, adjustment of the mA and/or kV according to patient size and/or use of iterative reconstruction technique. FINDINGS: No acute intracranial hemorrhage identified. No mass, mass effect, shift of the midline, abnormal extra-axial fluid collection or CT evidence of acute ischemic change identified. The ventricular system and sulcal spaces are mildly enlarged compatible with mild cerebral atrophy. Scattered areas of hypodensity throughout the supratentorial white matter are nonspecific and may be related to chronic small vessel ischemic change. Bifrontal and left temporoparietal encephalomalacia compatible with remote infarctions. Bilateral basal ganglia lacunar type infarctions. Mild mucosal thickening of the right maxillary sinus. Mastoid air cells are well aerated. No skull fracture identified. Visualized orbits and globes are unremarkable. Atherosclerotic calcification of the intracranial internal carotid arteries. IMPRESSION: 1. No acute intracranial abnormality by CT criteria. ECHO: MEASUREMENTS (cm) DIASTOLIC (NORMALS) SYSTOLIC (NORMALS) IVSd 1.1 (0.6-1.2) LA Diam 2.8 (1.9-4.0) LVEF 36% LVIDd 5.9 (3.5-5.7) LVIDs 4.8 (2.0-3.5) %FS 18% LVPWd 1.1 (0.6-1.2) Ao Diam 2.5 (2.0-3.7) DIMENSIONAL ASSESSMENT: RIGHT ATRIUM: NORMAL LEFT ATRIUM: NORMAL RIGHT VENTRICLE: NORMAL LEFT VENTRICLE: NORMAL TRICUSPID VALVE: NORMAL MITRAL VALVE: NORMAL PULMONIC VALVE: NORMAL AORTIC VALVE: NORMAL PERICARDIAL EFFUSION: NONE AORTIC ROOT: NORMAL LEFT VENTRICULAR WALL MOTION: MODERATE GLOBAL HYPOKINESIS. DOPPLER/COLOR FLOW: COMMENTS: MODERATE GLOBAL HYPOKINESIS. LEFT VENTRICULAR EJECTION FRACTION 40%. AORTIC SCLEROSIS WITH NO STENOSIS. NO EFFUSION. Follow up CXR: COMPARISON: March 23 FINDINGS: Mild improvement bilateral pulmonary opacities Heart remains enlarged IMPRESSION: Mild improvement in bilateral pulmonary opacities probably pneumoniae Physical Exam: General: Demented. Patient more alert HEENT: Neck supple Respiratory: Diminished. Currently on 15 L Cardiovascular: No edema, Normal S1 S2 Capillary refill: <2 Seconds Gastrointestinal: Normal bowel sounds, Soft and benign. Dobhoff in place Musculoskeletal: No contractures, No erythema, No tenderness Integumentary: No tenderness/swelling, No erythema Neurological: Patient more alert. Dementia noted Impression: Acute hypoxic respiratory failure secondary to COVID-19 pneumonia complicated with UTI Hypotension Acute renal failure superimposed on CKD3 Elevated troponin likely ischemic demand History of CVA/dementia with CT scan showing Bifrontal and left temporoparietal encephalomalacia compatible with remote infarctions and Bilateral basal ganglia lacunar type infarctions Hypernatremia Seizure disorder Plan: Acute hypoxic respiratory failure secondary to COVID-19 pneumonia complicated with UTI: Overall stable. Currently on 15 liters and nonrebreather. Continue with IV fluids. Continue with continue IV steroids, supplements. Patient remains n.p.o. Await speech evaluation. Continue physical therapy and Occupational Therapy. half-way medications restarted. Patient off Levophed. Continue with Dobhoff feeds. Daughter wants patient to go to a different [facility]. Social work consulted to help with this. I will turn the service over to the hospitalist team tomorrow. I will go over the plan of care with him. Hypotension: Continue IV fluids. Renal function improved. Continue with above plan of care. Acute renal failure superimposed on CKD3: Renal function improved. Nephrology consulted. Baseline GFR appears to be around 60. Continue IV fluids. Continue with above plan of care Elevated troponin likely ischemic demand: Likely demand ischemia, trend troponins, monitor on telemetry. Echocardiogram shows global hypokinesis. Ejection fraction 40%. No cardiac intervention needed. History of CVA/dementia with CT scan showing Bifrontal and left temporoparietal encephalomalacia compatible with remote infarctions and Bilateral basal ganglia lacunar type infarctions: Patient with underlying dementia. Prior CVAs noted. Continue with above plan. Speech to assess. Continue with PT/OT. Continue with IV fluids and Dobhoff feeds. Hypernatremia: Improving. Continue with IV fluids.. Seizure disorder: Continue with medication DVT PPX: Lovenox Code status: Full Discharge Plan: Daughter wants patient to go to a different [facility].
[2021-03-27] MEDS ORDERED: GLUCAGON 1 MG/VIAL IM PRN (20:47)
[2021-03-27] MEDS: INSULIN -REGULAR HUMAN 50 UNIT/0.5 ML ML SQ SCH (23:51)
[2021-03-28] MEDS: LORazepam 2 MG/ML VIAL IV PRN (04:59)
[2021-03-28 05:39] LABS: Absolute Lymphocytes (CBC) 0.6 K/uL (0.7-4.9); Basophils % 0.1 % (0-1.3); Hematocrit 44.1 % (39.6-49.0); Lymphocytes % 3.6 % (15.3-44.8); MPV 9.9 fL (7.6-11.3); RBC Red Blood Cell Count 4.61 M/uL (4.33-5.43)
[2021-03-28 05:48] LABS: C-Reactive Protein 21.2 mg/L (<3.00); Ferritin 968.4 ng/mL (26-388); Potassium 4.3 mmol/L (3.5-5.1)
[2021-03-28] MEDS: INSULIN -REGULAR HUMAN 50 UNIT/0.5 ML ML SQ SCH ×3 (05:54→17:35)
[2021-03-28] MEDS: ASPIRIN EC 81 MG TAB PO SCH (08:03)
[2021-03-28] MEDS: THIAMINE 200 MG/2 ML INJ IVP SCH (08:04)
[2021-03-28] MEDS: METHYLPREDNISOLONE 40 MG INJ IV SCH ×2 (08:04→20:51)
[2021-03-28] MEDS: ATORVASTATIN 20 MG TAB PO SCH (08:04)
[2021-03-28] MEDS: CEFTRIAXONE/SWI 1gm 1 GM/10 ML SYR IVP SCH (08:04)
[2021-03-28] MEDS: D5W 1,000 ML IV SCH ×2 (08:05→16:54)
[2021-03-28] MEDS: BARICITINIB 2 MG TABLET PO SCH (08:06)
[2021-03-28] MEDS: FOLIC ACID 1 MG in NA CHLORIDE 0.9% 50 ML IV SCH (08:11)
[2021-03-28] MEDS: levETIRAcetam 1,000 MG in NA CHLORIDE 0.9% 100 ML IV SCH ×2 (08:12→20:51)
[2021-03-28] MEDS: MORPHINE 2 MG/ML SYR IV PRN ×2 (08:20→20:52)
--- NOTE | 2021-03-28 09:18 | P.PN ---
Subjective Date of Service: 03/27/21 Subjective: Demented, Other (confused and lethargic) Spoke to daughter who states that prior to patient going into the [facility]. Patient was ambulatory. Since being in the [facility] she is not really shore as she has not been able to visit. This has been since November. I have been try to get a hold of the [facility] but no one picked up at the facility. The number there is [phone]. Will continue trying a reach out to the [facility] to see what his new baseline is. He may need repeat CT scan of the brain. Patient does not really interact with me or nor does patient is a much. He does appear to be somewhat contracted in his upper extremity but not so much in his lower extremity. Long-term prognosis is poor. He probably would benefit from DNR status. If he does get intubated he most likely will not do well. Currently he is on 100% non-rebreather. Review of Systems is unable to be obtained Physical Examination - Vital Signs Temperature: 96.7 F Blood Pressure: 139/83 Pulse: 98 Respirations: 40 Pulse Ox (%): 93 - Physical Exam General: Disheveled, Mild distress, Confused Respiratory: Diminished, Expiratory wheezes Cardiovascular: Regular rate/rhythm, Normal S1 S2 Gastrointestinal: Normal bowel sounds, Soft and benign, Non-distended Musculoskeletal: No clubbing, No swelling Neurological: Cranial nerves 3-12 intact, Abnormal gait, Abnormal speech, Abnormal strength, Abnormal tone, Dementia Assessment & Plan - Problems (Diagnosis) (1) 2019 novel coronavirus-infected pneumonia (NCIP) Current Visit: Yes Status: Acute (2) VITALY (acute kidney injury) Onset Date: ~04/05/17 Current Visit: No Status: Acute (3) Dementia, vascular Current Visit: No Status: Acute (4) Transient ischemic attack Current Visit: No Status: Acute (5) CVA (cerebral vascular accident) Onset Date: Unknown Current Visit: No Status: Chronic Qualifiers: CVA mechanism: embolism Precerebral and cerebral artery: unspecified precerebral artery Qualified Code(s): I63.10 - Cerebral infarction due to embolism of unspecified precerebral artery (6) Hypertension Onset Date: Unknown Current Visit: No Status: Chronic Qualifiers: Hypertension type: essential hypertension (7) Seizure Onset Date: 01/07/17 Current Visit: No Status: Chronic - Plan 1. Continue with IV steroids 2. Monitor inflammatory markers 3. Repeat chest x-ray and may need repeat CT head imaging as well; have been tried a reach out to the [facility] at [phone], but I have been unsuccessful and talking to any body regarding patient's baseline status. His daughter tells me that he was ambulatory prior to going to the [facility]. However, he is not interacting with me & does not follow commands. Patient has some pressure sores and he is on likely to be ambulatory any longer. Once we get this addressed we can talk with the family regarding his code status. 4. O2 per protocol 5. Pulmonary consultation obtained 6. Continue with nebulizer treatments as needed along with antibiotics if necessary 7. Monitor LFTs 8. GI and DVT prophylaxis Discharge Plan: Care Home Plan to discharge in: Greater than 2 days - Advance Directives Does patient have a Living Will: No Does patient have a Durable POA for Healthcare: No - Code Status/Comfort Care Code Status Assessed: Yes Code Status: Full Code Critical Care: No Time Spent Managing PTS Care (In Minutes): 35
--- NOTE | 2021-03-28 09:27 | P.PN ---
Date of Service: 03/28/21 Subjective Spoke with patient's daughter who states that his normal activity required minimal assistance. She is not really aware what has been happening at [facility]. Will try to discuss with them regarding his current clinical status. Review of Systems is unable to be obtained Physical Examination - Vital Signs Reviewed - Physical Exam General: Disheveled, Mild distress, Confused Respiratory: Diminished, Expiratory wheezes Cardiovascular: Regular rate/rhythm, Normal S1 S2 Gastrointestinal: Normal bowel sounds, Soft and benign, Non-distended Musculoskeletal: No clubbing, No swelling Neurological: Patient with generalized weakness Assessment & Plan - Problems (Diagnosis) (1) 2019 novel coronavirus-infected pneumonia (NCIP) Current Visit: Yes Status: Acute (2) VITALY (acute kidney injury) Onset Date: ~04/05/17 Current Visit: No Status: Acute (3) Dementia, vascular Current Visit: No Status: Acute (4) Transient ischemic attack Current Visit: No Status: Acute (5) CVA (cerebral vascular accident) Onset Date: Unknown Current Visit: No Status: Chronic Qualifiers: CVA mechanism: embolism Precerebral and cerebral artery: unspecified precerebral artery Qualified Code(s): I63.10 - Cerebral infarction due to embolism of unspecified precerebral artery (6) Hypertension Onset Date: Unknown Current Visit: No Status: Chronic Qualifiers: Hypertension type: essential hypertension (7) Seizure Onset Date: 01/07/17 Current Visit: No Status: Chronic - Plan Continue with plan of care as mentioned below: 1. Continue with IV steroids 2. Monitor inflammatory markers 3. May need to repeat chest x-ray and may need repeat CT head imaging as well; have tried to reach out to the [facility] home at [phone], but I have been unsuccessful in talking to any body regarding patient's baseline status. His daughter tells me that he was ambulatory prior to going to the [facility]. However, he is not interacting with me & does not follow commands. Patient has some pressure sores and he is on likely to be ambulatory any longer. Once we get this addressed we can talk with the family regarding his code status. 4. O2 per protocol 5. Pulmonary consultation obtained 6. Continue with nebulizer treatments as needed along with antibiotics if necessary 7. Monitor LFTs 8. GI and DVT prophylaxis
--- NOTE | 2021-03-28 12:07 | P.PN ---
Subjective Date of Service: 03/28/21 Primary Care Provider: correction doctor Chief Complaint: Respiratory failure, COVID-19 Patient is not doing well patient is not doing well very hypoxic unresponsive Review of Systems is unable to be obtained Physical Examination - Vital Signs Temperature: 96.7 F Blood Pressure: 139/83 Pulse: 98 Respirations: 40 Pulse Ox (%): 93 - Physical Exam General: Unresponsive Assessment & Plan - Problems (Diagnosis) (1) 2019 novel coronavirus-infected pneumonia (NCIP) Current Visit: Yes Status: Acute Plan: Respiratory failure hyponatremia is improving on maximal therapy on maximal therapy prognosis poor
[2021-03-28 13:29] LABS: Blood Morphology Comment NOT SEEN (NOT SEEN); Platelet Estimate ADEQ
--- NOTE | 2021-03-28 21:03 | P.PN ---
Date of Service: 03/28/21 Vital Signs Temp Pulse Resp BP Pulse Ox 96.7 F L 94 H 48 H 125/97 H 90 L 03/28/21 20:00 03/28/21 20:00 03/28/21 20:00 03/28/21 20:00 03/28/21 20:00 Medications Acetaminophen (Acetaminophen 650mg/Rect Supp) 650 mg MT Q6HP PRN PRN Reason: TEMP > 100' F Aspirin (Aspirin Ec 81 Mg Tab) 81 mg PO DAILY [facility] Last Admin: 03/28/21 08:03 Dose: 81 mg Documented by: Atorvastatin Calcium (Atorvastatin 20 Mg Tab) 20 mg PO DAILY [facility] Last Admin: 03/28/21 08:04 Dose: 20 mg Documented by: Dextrose (D50w 25 Gm/50 Ml Syringe) 12.5 gm IV PRN PRN; Protocol PRN Reason: HYPOGLYCEMIA Enteral Nutritional Formula (Nepro 1,000 Ml Bot) 1,000 ml FT CONT [facility] Last Admin: 03/27/21 21:04 Dose: 1,000 ml Documented by: Glucagon (Glucagon 1 Mg/Vial) 1 mg IM 1X PRN; Protocol PRN Reason: HYPOGLYCEMIA Norepinephrine Bitartrate 4 mg (/ Dextrose) 254 mls @ 0 mls/hr IV PRN PRN; Protocol PRN Reason: Hemodynamic Parameters Last Admin: 03/24/21 02:50 Dose: 254 mls Documented by: Ceftriaxone Sodium/Sodium Chloride (Rocephin 1 Gm/10 Ml Swi Ivp) 1 gm in 10 mls @ 600 mls/hr IVP DAILY [facility]; Protocol Last Admin: 03/28/21 08:04 Dose: 10 mls Documented by: Levetiracetam 1,000 mg/ Sodium (Chloride) 110 mls @ 440 mls/hr IV BID [facility] Last Admin: 03/28/21 08:12 Dose: 110 mls Documented by: Folic Acid 1 mg/ Sodium (Chloride) 50.2 mls @ 200.8 mls/hr IV DAILY [facility] Last Admin: 03/28/21 08:11 Dose: 50.2 mls Documented by: Dextrose/Water (Dextrose In Water (1-Liter)) 1,000 mls @ 100 mls/hr IV .Q10H [facility] Last Admin: 03/28/21 16:54 Dose: 1,000 mls Documented by: Insulin Human Regular (Insulin -Regular Human 50 Unit/0.5 Ml Ml) 0 unit SQ Q6H [facility]; Protocol Last Admin: 03/28/21 17:35 Dose: Not Given Documented by: Lorazepam (Lorazepam 2 Mg/Ml Vial) 0.5 mg IV QIDP PRN PRN Reason: AGITATION Last Admin: 03/28/21 04:59 Dose: 0.5 mg Documented by: Methylprednisolone Sodium Succinate (Methylprednisolone 40 Mg Inj) 80 mg IV BID [facility] Last Admin: 03/28/21 08:04 Dose: 80 mg Documented by: Morphine Sulfate (Morphine 2 Mg/Ml Syr) 2 mg IV Q4H PRN PRN Reason: Pain scale 5-7 (Moderate) Last Admin: 03/28/21 08:20 Dose: 2 mg Documented by: Ondansetron HCl (Ondansetron 4 Mg/2 Ml Vial) 4 mg IV Q6HP PRN PRN Reason: NAUSEA / VOMITING Sodium Chloride (Flush Normal Saline 10 Ml) 10 ml IV BID [facility] Last Admin: 03/28/21 08:05 Dose: 10 ml Documented by: Thiamine HCl (Thiamine 200 Mg/2 Ml Inj) 100 mg IVP DAILY [facility] Last Admin: 03/28/21 08:04 Dose: 100 mg Documented by: Microbiology Results 03/23/21 19:15 Blood - Blood Aerobic Blood Culture - Final No growth in 5 days. 03/23/21 19:15 Blood - Blood Anaerobic Blood Culture - Final No growth in 5 days. 03/23/21 19:00 Blood - Blood Aerobic Blood Culture - Final No growth in 5 days. 03/23/21 19:00 Blood - Blood Anaerobic Blood Culture - Final No growth in 5 days. Assessment/ Plan: Nephrology Progress Note Limited IH/ ROS due to AMS. Currently on Bipap No acute events overnight Vitals, medications blood work and imaging reviewed in the chart General: Cooperative, Mild distress, Confused HEENT: Atraumatic Neck: Supple Respiratory: Diminished Cardiovascular: No edema, Regular rate/rhythm Gastrointestinal: Soft and benign, Non-distended Musculoskeletal: No clubbing, No contractures Integumentary: No rashes, No cyanosis Neurological: Abnormal speech External genitalia: No edema Greater than 30min patient care. Blood work reviewed in the chart. Imagings Data: EXAM DESCRIPTION: RAD - Chest Single View - 03/23/2021 6:49 pm CLINICAL HISTORY: COUGH Chest pain. COMPARISON: Chest Single View dated 11/23/2020; Chest Single View dated 01/07/2019; Chest Single View dated 08/29/2018; Chest Single View dated 04/05/2017 FINDINGS: Portable technique limits examination quality. Mild to moderate bilateral pulmonary opacities are present, which probably represent pulmonary infection/viral infection. The heart is upper limit of normal in size. No displaced fractures. EXAM DESCRIPTION: CT of the head without contrast CLINICAL HISTORY: CONFUSED COMPARISON: Report from 11/23/2020 TECHNIQUE: Axial CT of the head obtained from the skull apex to the skull base without contrast. This exam was performed according to our departmental dose- optimization program, which includes automated exposure control, adjustment of the mA and/or kV according to patient size and/or use of iterative reconstruction technique. FINDINGS: No acute intracranial hemorrhage identified. No mass, mass effect, shift of the midline, abnormal extra-axial fluid collection or CT evidence of acute ischemic change identified. The ventricular system and sulcal spaces are mildly enlarged compatible with mild cerebral atrophy. Scattered areas of hypodensity throughout the supratentorial white matter are nonspecific and may be related to chronic small vessel ischemic change. Bifrontal and left temporoparietal encephalomalacia compatible with remote infarctions. Bilateral basal ganglia lacunar type infarctions. Mild mucosal thickening of the right maxillary sinus. Mastoid air cells are well aerated. No skull fracture identified. Visualized orbits and globes are unremarkable. Atherosclerotic calcification of the intracranial internal carotid arteries. IMPRESSION: 1. No acute intracranial abnormality by CT criteria. LEFT VENTRICULAR WALL MOTION: MODERATE GLOBAL HYPOKINESIS. DOPPLER/COLOR FLOW: COMMENTS: MODERATE GLOBAL HYPOKINESIS. LEFT VENTRICULAR EJECTION FRACTION 40%. AORTIC SCLEROSIS WITH NO STENOSIS. NO EFFUSION. Conclusions/Impression: VITALY in the setting of sepsis/ hypotension CKD III with proteinuria -No NSAIDs -Continue IVF Hypernatremia -Continue IVF Hypocalcemia -Replete prn Septic Shock/ Hypotension -IVF bolus prn -Norepi prn Rhabdomyolysis -Continue IVF Systolic CHF, chronic -Low sodium diet -Daily weight Hyperglycemia secondary steroids -Consider RISS Severe malnutrition -Encourage nutrition -Recommend protein supplementation COVID-19 PNA -Continue Solumedrol -Continue Rocephin -Continue Baricitinib
[2021-03-29 04:46] LABS: Absolute Lymphocytes (CBC) 0.6 K/uL (0.7-4.9); Basophils % 0.4 % (0-1.3); Lymphocytes % 3.7 % (15.3-44.8); RBC Red Blood Cell Count 4.38 M/uL (4.33-5.43)
[2021-03-29] MEDS: D5W 1,000 ML IV SCH ×2 (04:56→10:15)
[2021-03-29 05:03] LABS: Potassium 4.5 mmol/L (3.5-5.1)
[2021-03-29] MEDS: INSULIN -REGULAR HUMAN 50 UNIT/0.5 ML ML SQ SCH ×4 (05:13→17:36)
--- NOTE | 2021-03-29 07:30 | RAD REPORT ---
EXAM DESCRIPTION: Shira Single View03/29/2021 6:14 am CLINICAL HISTORY: Respiratory failure COMPARISON: March 25, 2021 FINDINGS: Mild worsening in left and no significant change in right pulmonary opacities. Heart remains enlarged. Nasogastric tube with its tip the distal stomach IMPRESSION: Mild worsening in left and no significant change in the right pulmonary opacities
[2021-03-29] MEDS: METHYLPREDNISOLONE 40 MG INJ IV SCH (09:00)
[2021-03-29] MEDS: levETIRAcetam 1,000 MG in NA CHLORIDE 0.9% 100 ML IV SCH ×2 (10:02→21:58)
[2021-03-29] MEDS: BARICITINIB 2 MG TABLET PO SCH (10:02)
[2021-03-29] MEDS: CEFTRIAXONE/SWI 1gm 1 GM/10 ML SYR IVP SCH (10:02)
[2021-03-29] MEDS: FOLIC ACID 1 MG in NA CHLORIDE 0.9% 50 ML IV SCH (10:02)
[2021-03-29] MEDS: ASPIRIN EC 81 MG TAB PO SCH (10:02)
[2021-03-29] MEDS: METHYLPREDNISOLONE 125 MG INJ IV SCH (10:03)
[2021-03-29] MEDS: THIAMINE 200 MG/2 ML INJ IVP SCH (10:03)
[2021-03-29] MEDS: ATORVASTATIN 20 MG TAB PO SCH (10:03)
--- NOTE | 2021-03-29 19:52 | P.PN ---
Date of Service: 03/29/21 Vital Signs Temp Pulse Resp BP Pulse Ox 97.5 F 93 H 34 H 132/83 95 03/29/21 16:00 03/29/21 17:00 03/29/21 17:00 03/29/21 17:00 03/29/21 17:00 Medications Acetaminophen (Acetaminophen 650mg/Rect Supp) 650 mg TN Q6HP PRN PRN Reason: TEMP > 100' F Aspirin (Aspirin Ec 81 Mg Tab) 81 mg PO DAILY [facility] Last Admin: 03/29/21 10:02 Dose: 81 mg Documented by: Atorvastatin Calcium (Atorvastatin 20 Mg Tab) 20 mg PO DAILY [facility] Last Admin: 03/29/21 10:03 Dose: 20 mg Documented by: Dextrose (D50w 25 Gm/50 Ml Syringe) 12.5 gm IV PRN PRN; Protocol PRN Reason: HYPOGLYCEMIA Enteral Nutritional Formula (Nepro 1,000 Ml Bot) 1,000 ml FT CONT [facility] Last Admin: 03/27/21 21:04 Dose: 1,000 ml Documented by: Glucagon (Glucagon 1 Mg/Vial) 1 mg IM 1X PRN; Protocol PRN Reason: HYPOGLYCEMIA Norepinephrine Bitartrate 4 mg (/ Dextrose) 254 mls @ 0 mls/hr IV PRN PRN; Pr otocol PRN Reason: Hemodynamic Parameters Last Admin: 03/24/21 02:50 Dose: 254 mls Documented by: Ceftriaxone Sodium/Sodium Chloride (Rocephin 1 Gm/10 Ml Swi Ivp) 1 gm in 10 mls @ 600 mls/hr IVP DAILY [facility]; Protocol Last Admin: 03/29/21 10:02 Dose: 10 mls Documented by: Levetiracetam 1,000 mg/ Sodium (Chloride) 110 mls @ 440 mls/hr IV BID [facility] Last Admin: 03/29/21 10:02 Dose: 110 mls Documented by: Folic Acid 1 mg/ Sodium (Chloride) 50.2 mls @ 200.8 mls/hr IV DAILY [facility] Last Admin: 03/29/21 10:02 Dose: 50.2 mls Documented by: Dextrose/Water (Dextrose In Water (1-Liter)) 1,000 mls @ 100 mls/hr IV .Q10H [facility] Last Admin: 03/29/21 10:15 Dose: 1,000 mls Documented by: Insulin Human Regular (Insulin -Regular Human 50 Unit/0.5 Ml Ml) 0 unit SQ Q6H [facility]; Protocol Last Admin: 03/29/21 17:36 Dose: Not Given Documented by: Lorazepam (Lorazepam 2 Mg/Ml Vial) 0.5 mg IV QIDP PRN PRN Reason: AGITATION Last Admin: 03/28/21 04:59 Dose: 0.5 mg Documented by: Methylprednisolone Sodium Succinate (Methylprednisolone 125 Mg Inj) 80 mg IV BID [facility] Last Admin: 03/29/21 10:03 Dose: 80 mg Documented by: Morphine Sulfate (Morphine 2 Mg/Ml Syr) 2 mg IV Q4H PRN PRN Reason: Pain scale 5-7 (Moderate) Last Admin: 03/28/21 20:52 Dose: 2 mg Documented by: Ondansetron HCl (Ondansetron 4 Mg/2 Ml Vial) 4 mg IV Q6HP PRN PRN Reason: NAUSEA / VOMITING Sodium Chloride (Flush Normal Saline 10 Ml) 10 ml IV BID [facility] Last Admin: 03/29/21 10:02 Dose: 10 ml Documented by: Thiamine HCl (Thiamine 200 Mg/2 Ml Inj) 100 mg IVP DAILY [facility] Last Admin: 03/29/21 10:03 Dose: 100 mg Documented by: Microbiology Results 03/23/21 19:15 Blood - Blood Aerobic Blood Culture - Final No growth in 5 days. 03/23/21 19:15 Blood - Blood Anaerobic Blood Culture - Final No growth in 5 days. 03/23/21 19:00 Blood - Blood Aerobic Blood Culture - Final No growth in 5 days. 03/23/21 19:00 Blood - Blood Anaerobic Blood Culture - Final No growth in 5 days. Assessment/ Plan: Nephrology Progress Note Limited IH/ ROS due to AMS. Currently on Bipap No acute events overnight Vitals, medications blood work and imaging reviewed in the chart General: Cooperative, Mild distress, Confused HEENT: Atraumatic Neck: Supple Respiratory: Diminished Cardiovascular: No edema, Regular rate/rhythm Gastrointestinal: Soft and benign, Non-distended Musculoskeletal: No clubbing, No contractures Integumentary: No rashes, No cyanosis Neurological: Abnormal speech External genitalia: No edema Greater than 30min patient care. Blood work reviewed in the chart. Imagings Data: EXAM DESCRIPTION: RAD - Chest Single View - 03/23/2021 6:49 pm CLINICAL HISTORY: COUGH Chest pain. COMPARISON: Chest Single View dated 11/23/2020; Chest Single View dated ; Chest Single View dated 08/29/2018; Chest Single View dated 04/05/2017 FINDINGS: Portable technique limits examination quality. Mild to moderate bilateral pulmonary opacities are present, which probably represent pulmonary infection/viral infection. The heart is upper limit of normal in size. No displaced fractures. EXAM DESCRIPTION: CT of the head without contrast CLINICAL HISTORY: CONFUSED COMPARISON: Report from 11/23/2020 TECHNIQUE: Axial CT of the head obtained from the skull apex to the skull base without contrast. This exam was performed according to our departmental dose- optimization program, which includes automated exposure control, adjustment of the mA and/or kV according to patient size and/or use of iterative reconstruction technique. FINDINGS: No acute intracranial hemorrhage identified. No mass, mass effect, shift of the midline, abnormal extra-axial fluid collection or CT evidence of acute ischemic change identified. The ventricular system and sulcal spaces are mildly enlarged compatible with mild cerebral atrophy. Scattered areas of hypodensity throughout the supratentorial white matter are nonspecific and may be related to chronic small vessel ischemic change. Bifrontal and left temporoparietal encephalomalacia compatible with remote infarctions. Bilateral basal ganglia lacunar type infarctions. Mild mucosal thickening of the right maxillary sinus. Mastoid air cells are well aerated. No skull fracture identified. Visualized orbits and globes are unremarkable. Atherosclerotic calcification of the intracranial internal carotid arteries. IMPRESSION: 1. No acute intracranial abnormality by CT criteria. LEFT VENTRICULAR WALL MOTION: MODERATE GLOBAL HYPOKINESIS. DOPPLER/COLOR FLOW: COMMENTS: MODERATE GLOBAL HYPOKINESIS. LEFT VENTRICULAR EJECTION FRACTION 40%. AORTIC SCLEROSIS WITH NO STENOSIS. NO EFFUSION. Conclusions/Impression: VITALY in the setting of sepsis/ hypotension CKD III with proteinuria -No NSAIDs -Continue IVF Hypernatremia -Continue IVF Hypocalcemia -Replete prn Septic Shock/ Hypotension -IVF bolus prn -Norepi prn Rhabdomyolysis -Continue IVF Systolic CHF, chronic -Low sodium diet -Daily weight Hyperglycemia secondary steroids -Consider RISS Severe malnutrition -Encourage nutrition -Recommend protein supplementation COVID-19 PNA -Continue Solumedrol -Continue Rocephin -Continue Baricitinib
[2021-03-30] MEDS: MORPHINE 2 MG/ML SYR IV PRN ×2 (02:00→05:18)
[2021-03-30] MEDS: D5W 1,000 ML IV SCH ×2 (02:01→10:30)
[2021-03-30] MEDS: LORazepam 2 MG/ML VIAL IV PRN (03:43)
[2021-03-30] MEDS: INSULIN -REGULAR HUMAN 50 UNIT/0.5 ML ML SQ SCH ×4 (05:13→17:45)
[2021-03-30 05:51] LABS: C-Reactive Protein 65.8 mg/L (<3.00)
--- NOTE | 2021-03-30 08:41 | RAD REPORT ---
EXAM DESCRIPTION: RAD - Chest Single View - 03/30/2021 7:59 am CLINICAL HISTORY: Respiratory failure COMPARISON: March 29 TECHNIQUE: AP portable chest image was obtained 03/30/2021 7:59 am . FINDINGS: NG tube extends below the diaphragm, off the field of view. Loop recorder overlies the low er left chest. Lung volumes are low. Lower left lung field appears better aerated than on the March 29 study. No progression of any lung parenchymal process seen. Interstitial markings remain prominent. Heart and vasculature are normal. No measurable pleural effusion and no pneumothorax. No acute bony abnormality seen. No acute aortic findings suspected. IMPRESSION: Improved aeration of the lower left lung field since prior imaging.
--- NOTE | 2021-03-30 09:11 | P.PN ---
Date of Service: 03/29/21 Subjective Patient continues to decline. Now on BiPAP. Unable to get a hold of intermediate today. Spoke with sister who still wants everything performed. Prognosis remains poor. May be headed towards intubation if patient does not start improving Review of Systems is unable to be obtained Physical Examination - Vital Signs Reviewed - Physical Exam General: Disheveled, Mild distress, Confused Respiratory: Diminished, Expiratory wheezes Cardiovascular: Regular rate/rhythm, Normal S1 S2 Gastrointestinal: Normal bowel sounds, Soft and benign, Non-distended Musculoskeletal: No clubbing, No swelling Neurological: Cranial nerves 3-12 intact, Abnormal gait, Abnormal speech, Abnormal strength, Abnormal tone, Dementia Assessment & Plan - Problems (Diagnosis) (1) 2019 novel coronavirus-infected pneumonia (NCIP) Current Visit: Yes Status: Acute (2) VITALY (acute kidney injury) Onset Date: ~04/05/17 Current Visit: No Status: Acute (3) Dementia, vascular Current Visit: No Status: Acute (4) Transient ischemic attack Current Visit: No Status: Acute (5) CVA (cerebral vascular accident) Onset Date: Unknown Current Visit: No Status: Chronic Qualifiers: CVA mechanism: embolism Precerebral and cerebral artery: unspecified precerebral artery Qualified Code(s): I63.10 - Cerebral infarction due to embolism of unspecified precerebral artery (6) Hypertension Onset Date: Unknown Current Visit: No Status: Chronic Qualifiers: Hypertension type: essential hypertension (7) Seizure Onset Date: 01/07/17 Current Visit: No Status: Chronic - Plan Continue with plan of care as mentioned below: 1. Continue with IV steroids 2. Monitor inflammatory markers 3. Repeat chest x-ray and may need repeat CT head imaging as well; have been tried a reach out to the [facility] at [phone], but I have been unsuccessful and talking to any body regarding patient's baseline status. His daughter tells me that he was ambulatory prior to going to the intermediate. However, he is not interacting with me & does not follow commands. Patient has some pressure sores and he is on likely to be ambulatory any longer. Once we get this addressed we can talk with the family regarding his code status. 4. O2 per protocol 5. Pulmonary consultation obtained 6. Continue with nebulizer treatments as needed along with antibiotics if necessary 7. GI and DVT prophylaxis
--- NOTE | 2021-03-30 09:14 | P.PN ---
Date of Service: 03/30/21 Subjective Patient was not doing well on high-flow oxygen so we went ahead and placed on BiPAP support. I spoke with [facility] & they stated that patient with minimal assistance. Continue with current plan of care and will discuss with family regarding poor prognosis. Review of Systems is unable to be obtained Physical Examination - Vital Signs Reviewed - Physical Exam General: Disheveled, Mild distress, Confused Respiratory: Diminished, Expiratory wheezes Cardiovascular: Regular rate/rhythm, Normal S1 S2 Gastrointestinal: Normal bowel sounds, Soft and benign, Non-distended Musculoskeletal: No clubbing, No swelling Neurological: Patient with dementia and not really responding. Assessment & Plan - Problems (Diagnosis) (1) 2019 novel coronavirus-infected pneumonia (NCIP) Current Visit: Yes Status: Acute (2) VITALY (acute kidney injury) Onset Date: ~04/05/17 Current Visit: No Status: Acute (3) Dementia, vascular Current Visit: No Status: Acute (4) Transient ischemic attack Current Visit: No Status: Acute (5) CVA (cerebral vascular accident) Onset Date: Unknown Current Visit: No Status: Chronic Qualifiers: CVA mechanism: embolism Precerebral and cerebral artery: unspecified precerebral artery Qualified Code(s): I63.10 - Cerebral infarction due to embolism of unspecified precerebral artery (6) Hypertension Onset Date: Unknown Current Visit: No Status: Chronic Qualifiers: Hypertension type: essential hypertension (7) Seizure Onset Date: 01/07/17 Current Visit: No Status: Chronic - Plan Continue with plan of care as mentioned below: 1. Continue with IV steroids 2. Monitor labs are renal function closely 3. Continue monitoring chest x-ray findings. 4. O2 per protocol 5. Pulmonary consultation obtained 6. Continue with nebulizer treatments as needed along with antibiotics if necessary 7. GI and DVT prophylaxis
[2021-03-30] MEDS: CEFTRIAXONE/SWI 1gm 1 GM/10 ML SYR IVP SCH (09:42)
[2021-03-30] MEDS: BARICITINIB 2 MG TABLET PO SCH (09:42)
[2021-03-30] MEDS: levETIRAcetam 1,000 MG in NA CHLORIDE 0.9% 100 ML IV SCH ×2 (09:43→20:36)
[2021-03-30] MEDS: ASPIRIN EC 81 MG TAB PO SCH (09:43)
[2021-03-30] MEDS: FOLIC ACID 1 MG in NA CHLORIDE 0.9% 50 ML IV SCH (09:43)
[2021-03-30] MEDS: METHYLPREDNISOLONE 125 MG INJ IV SCH (09:43)
[2021-03-30] MEDS: THIAMINE 200 MG/2 ML INJ IVP SCH (09:43)
[2021-03-30] MEDS: ATORVASTATIN 20 MG TAB PO SCH (09:43)
[2021-03-30 11:57] LABS: Absolute Lymphocytes (CBC) 0.7 K/uL (0.7-4.9); Albumin 1.7 g/dL (3.4-5.0); Basophils % 0.1 % (0-1.3); Bilirubin Total 0.5 mg/dL (0.2-1.0); Hematocrit 41.6 % (39.6-49.0); Lymphocytes % 4.7 % (15.3-44.8); MPV 9.4 fL (7.6-11.3); Potassium 4.3 mmol/L (3.5-5.1)
--- NOTE | 2021-03-30 17:41 | P.PN ---
Subjective Date of Service: 03/30/21 Primary Care Provider: long-term doctor Chief Complaint: Respiratory failure, COVID-19 Pt not doing well/ Very hypoxic Review of Systems is unable to be obtained Physical Examination - Vital Signs Temperature: 97.1 F Blood Pressure: 108/81 Pulse: 92 Respirations: 32 Pulse Ox (%): 94 - Physical Exam General: Unresponsive Assessment & Plan - Problems (Diagnosis) (1) 2019 novel coronavirus-infected pneumonia (NCIP) Current Visit: Yes Status: Acute Plan: Prognosis poor MAx TXcxry improved aeration/DC IV fluids
[2021-03-30] MEDS: METHYLPREDNISOLONE 40 MG INJ IV SCH (20:36)
--- NOTE | 2021-03-30 21:12 | P.PN ---
Date of Service: 03/30/21 Vital Signs Temp Pulse Resp BP Pulse Ox 98.1 F 90 35 H 138/97 H 98 03/30/21 20:00 03/30/21 20:00 03/30/21 20:00 03/30/21 20:00 03/30/21 20:00 Medications Acetaminophen (Acetaminophen 650mg/Rect Supp) 650 mg PA Q6HP PRN PRN Reason: TEMP > 100' F Aspirin (Aspirin Ec 81 Mg Tab) 81 mg PO DAILY [facility] Last Admin: 03/30/21 09:43 Dose: 81 mg Documented by: Atorvastatin Calcium (Atorvastatin 20 Mg Tab) 20 mg PO DAILY [facility] Last Admin: 03/30/21 09:43 Dose: 20 mg Documented by: Dextrose (D50w 25 Gm/50 Ml Syringe) 12.5 gm IV PRN PRN; Protocol PRN Reason: HYPOGLYCEMIA Enteral Nutritional Formula (Nepro 1,000 Ml Bot) 1,000 ml FT CONT [facility] Last Admin: 03/27/21 21:04 Dose: 1,000 ml Documented by: Glucagon (Glucagon 1 Mg/Vial) 1 mg IM 1X PRN; Protocol PRN Reason: HYPOGLYCEMIA Norepinephrine Bitartrate 4 mg (/ Dextrose) 254 mls @ 0 mls/hr IV PRN PRN; Pr otocol PRN Reason: Hemodynamic Parameters Last Admin: 03/24/21 02:50 Dose: 254 mls Documented by: Levetiracetam 1,000 mg/ Sodium (Chloride) 110 mls @ 440 mls/hr IV BID [facility] Last Admin: 03/30/21 20:36 Dose: 110 mls Documented by: Folic Acid 1 mg/ Sodium (Chloride) 50.2 mls @ 200.8 mls/hr IV DAILY [facility] Last Admin: 03/30/21 09:43 Dose: 50.2 mls Documented by: Insulin Human Regular (Insulin -Regular Human 50 Unit/0.5 Ml Ml) 0 unit SQ Q6H [facility]; Protocol Last Admin: 03/30/21 17:45 Dose: Not Given Documented by: Lorazepam (Lorazepam 2 Mg/Ml Vial) 0.5 mg IV QIDP PRN PRN Reason: AGITATION Last Admin: 03/30/21 03:43 Dose: 0.5 mg Documented by: Methylprednisolone Sodium Succinate (Methylprednisolone 40 Mg Inj) 40 mg IV BID [facility] Last Admin: 03/30/21 20:36 Dose: 40 mg Documented by: Morphine Sulfate (Morphine 2 Mg/Ml Syr) 2 mg IV Q4H PRN PRN Reason: Pain scale 5-7 (Moderate) Last Admin: 03/30/21 05:18 Dose: 2 mg Documented by: Ondansetron HCl (Ondansetron 4 Mg/2 Ml Vial) 4 mg IV Q6HP PRN PRN Reason: NAUSEA / VOMITING Sodium Chloride (Flush Normal Saline 10 Ml) 10 ml IV BID [facility] Last Admin: 03/30/21 20:36 Dose: 10 ml Documented by: Thiamine HCl (Thiamine 200 Mg/2 Ml Inj) 100 mg IVP DAILY [facility] Last Admin: 03/30/21 09:43 Dose: 100 mg Documented by: Microbiology Results 03/23/21 19:15 Blood - Blood Aerobic Blood Culture - Final No growth in 5 days. 03/23/21 19:15 Blood - Blood Anaerobic Blood Culture - Final No growth in 5 days. 03/23/21 19:00 Blood - Blood Aerobic Blood Culture - Final No growth in 5 days. 03/23/21 19:00 Blood - Blood Anaerobic Blood Culture - Final No growth in 5 days. Assessment/ Plan: Nephrology Progress Note Limited IH/ ROS due to AMS. Currently on Bipap No acute events overnight Vitals, medications blood work and imaging reviewed in the chart General: Cooperative, Mild distress, Confused HEENT: Atraumatic Neck: Supple Respiratory: Diminished Cardiovascular: No edema, Regular rate/rhythm Gastrointestinal: Soft and benign, Non-distended Musculoskeletal: No clubbing, No contractures Integumentary: No rashes, No cyanosis Neurological: Abnormal speech External genitalia: No edema Greater than 30min patient care. Blood work reviewed in the chart. Imagings Data: EXAM DESCRIPTION: RAD - Chest Single View - 03/23/2021 6:49 pm CLINICAL HISTORY: COUGH Chest pain. COMPARISON: Chest Single View dated 11/23/2020; Chest Single View dated 01/07/2019; Chest Single View dated 08/29/2018; Chest Single View dated 04/05/2017 FINDINGS: Portable technique limits examination quality. Mild to moderate bilateral pulmonary opacities are present, which probably represent pulmonary infection/viral infection. The heart is upper limit of normal in size. No displaced fractures. EXAM DESCRIPTION: CT of the head without contrast CLINICAL HISTORY: CONFUSED COMPARISON: Report from 11/23/2020 TECHNIQUE: Axial CT of the head obtained from the skull apex to the skull base without contrast. This exam was performed according to our departmental dose- optimization program, which includes automated exposure control, adjustment of the mA and/or kV according to patient size and/or use of iterative reconstruction technique. FINDINGS: No acute intracranial hemorrhage identified. No mass, mass effect, shift of the midline, abnormal extra-axial fluid collection or CT evidence of acute ischemic change identified. The ventricular system and sulcal spaces are mildly enlarged compatible with mild cerebral atrophy. Scattered areas of hypodensity throughout the supratentorial white matter are nonspecific and may be related to chronic small vessel ischemic change. Bifrontal and left temporoparietal encephalomalacia compatible with remote infarctions. Bilateral basal ganglia lacunar type infarctions. Mild mucosal thickening of the right maxillary sinus. Mastoid air cells are well aerated. No skull fracture identified. Visualized orbits and globes are unremarkable. Atherosclerotic calcification of the intracranial internal carotid arteries. IMPRESSION: 1. No acute intracranial abnormality by CT criteria. LEFT VENTRICULAR WALL MOTION: MODERATE GLOBAL HYPOKINESIS. DOPPLER/COLOR FLOW: COMMENTS: MODERATE GLOBAL HYPOKINESIS. LEFT VENTRICULAR EJECTION FRACTION 40%. AORTIC SCLEROSIS WITH NO STENOSIS. NO EFFUSION. Conclusions/Impression: VITALY in the setting of sepsis/ hypotension CKD III with proteinuria -No NSAIDs Hypernatremia -Monitor Na Hypocalcemia -Replete prn Septic Shock/ Hypotension -IVF bolus prn -Norepi prn Rhabdomyolysis Systolic CHF, chronic -Low sodium diet -Daily weight Hyperglycemia secondary steroids -Consider RISS Severe malnutrition -Encourage nutrition -Recommend protein supplementation COVID-19 PNA -Continue Solumedrol -Continue Rocephin -Continue Baricitinib
[2021-03-31] MEDS: INSULIN -REGULAR HUMAN 50 UNIT/0.5 ML ML SQ SCH ×4 (06:00→18:00)
[2021-03-31 06:04] LABS: Absolute Lymphocytes (CBC) 0.4 K/uL (0.7-4.9); Basophils % 0.1 % (0-1.3); Hematocrit 39.2 % (39.6-49.0); Lymphocytes % 2.8 % (15.3-44.8); MPV 10.3 fL (7.6-11.3); RBC Red Blood Cell Count 4.14 M/uL (4.33-5.43)
[2021-03-31 06:24] LABS: Albumin 1.6 g/dL (3.4-5.0); Bilirubin Total 0.5 mg/dL (0.2-1.0); Ferritin 859.8 ng/mL (26-388); Magnesium 2.2 mg/dL (1.8-2.4); Phosphorus 3.6 mg/dL (2.5-4.9); Potassium 4.6 mmol/L (3.5-5.1); Protein, Total 5.8 g/dL (6.4-8.2)
--- NOTE | 2021-03-31 07:12 | RAD REPORT ---
EXAM DESCRIPTION: RAD - Chest Single View - 03/31/2021 6:05 am CLINICAL HISTORY: Respiratory failure COMPARISON: Chest Single View dated 03/30/2021; Chest Single View dated 03/29/2021; Abdomen 1 View (KUB) dated 03/25/2021; Chest Single View dated 03/25/2021 FINDINGS: Lines: NG-tube below the diaphragm. Lungs: Overall, similar appearance of widespread bilateral airspace disease, left greater than right. Though the left lung appears worsened on today's radiograph, it is similar to 03/29/2021. Pleural: No significant pleural effusions or pneumothorax. Cardiac: Cardiomegaly. Bones: No acute fractures. Other: Loop recorder overlying the heart IMPRESSION: Widespread bilateral airspace disease with apparent worsening in aeration of the left william ng compared with 03/30/2021 but similar to 03/29/2021.
[2021-03-31 08:59] LABS: Blood Morphology Comment NOT SEEN (NOT SEEN); Platelet Estimate ADEQ
[2021-03-31] MEDS: ASPIRIN EC 81 MG TAB PO SCH (09:11)
[2021-03-31] MEDS: THIAMINE 200 MG/2 ML INJ IVP SCH (09:12)
[2021-03-31] MEDS: FOLIC ACID 1 MG in NA CHLORIDE 0.9% 50 ML IV SCH (09:12)
[2021-03-31] MEDS: METHYLPREDNISOLONE 40 MG INJ IV SCH ×2 (09:12→21:07)
[2021-03-31] MEDS: levETIRAcetam 1,000 MG in NA CHLORIDE 0.9% 100 ML IV SCH ×2 (09:12→21:06)
[2021-03-31] MEDS: ATORVASTATIN 20 MG TAB PO SCH (09:12)
[2021-03-31] MEDS: BARICITINIB 2 MG TABLET PO SCH (09:13)
[2021-03-31] MEDS: MORPHINE 2 MG/ML SYR IV PRN (10:44)
[2021-03-31] MEDS: LORazepam 2 MG/ML VIAL IV PRN (11:02)
--- NOTE | 2021-03-31 12:08 | P.PN ---
Subjective Date of Service: 03/31/21 Primary Care Provider: intermediate doctor Chief Complaint: Respiratory failure, COVID-19 Not doing well hypoxic agitated Review of Systems is unable to be obtained Physical Examination - Vital Signs Temperature: 97.3 F Blood Pressure: 138/94 Pulse: 102 Respirations: 54 Pulse Ox (%): 110 - Physical Exam General: Unresponsive Assessment & Plan - Problems (Diagnosis) (1) 2018 novel coronavirus-infected pneumonia (NCIP) Current Visit: Yes Status: Acute Plan: Prognosis poor discussed with his daughter to go to make a family decision as to what to do next offered them DNR and comfort care in addition to putting him on mechanical ventilation patient is on maximum therapy right now will contact the daughter around 1230 Physician Review Additional Text: COVID: Positive CXR: COMPARISON: Chest Single View dated 11/23/2020; Chest Single View dated 01/07/2019; Chest Single View dated 08/29/2018; Chest Single View dated 04/05/2017 FINDINGS: Portable technique limits examination quality. Mild to moderate bilateral pulmonary opacities are present, which probably represent pulmonary infection/viral infection. The heart is upper limit of normal in size. No displaced fractures. CT Head: COMPARISON: Report from 11/23/2020 TECHNIQUE: Axial CT of the head obtained from the skull apex to the skull base without contrast. This exam was performed according to our departmental dose-o ptimization program, which includes automated exposure control, adjustment of the mA and/or kV according to patient size and/or use of iterative reconstruction technique. FINDINGS: No acute intracranial hemorrhage identified. No mass, mass effect, shift of the midline, abnormal extra-axial fluid collection or CT evidence of acute ischemic change identified. The ventricular system and sulcal spaces are mildly enlarged compatible with mild cerebral atrophy. Scattered areas of hypodensity throughout the supratentorial white matter are nonspecific and may be related to chronic small vessel ischemic change. Bifrontal and left temporoparietal encephalomalacia compatible with remote infarctions. Bilateral basal ganglia lacunar type infarctions. Mild mucosal thickening of the right maxillary sinus. Mastoid air cells are well aerated. No skull fracture identified. Visualized orbits and globes are unremarkable. Atherosclerotic calcification of the intracranial internal carotid arteries. IMPRESSION: 1. No acute intracranial abnormality by CT criteria. ECHO: MEASUREMENTS (cm) DIASTOLIC (NORMALS) SYSTOLIC (NORMALS) IVSd 1.1 (0.6-1.2) LA Diam 2.8 (1.9-4.0) LVEF 36% LVIDd 5.9 (3.5-5.7) LVIDs 4.8 (2.0-3.5) %FS 18% LVPWd 1.1 (0.6-1.2) Ao Diam 2.5 (2.0-3.7) DIMENSIONAL ASSESSMENT: RIGHT ATRIUM: NORMAL LEFT ATRIUM: NORMAL RIGHT VENTRICLE: NORMAL LEFT VENTRICLE: NORMAL TRICUSPID VALVE: NORMAL MITRAL VALVE: NORMAL PULMONIC VALVE: NORMAL AORTIC VALVE: NORMAL PERICARDIAL EFFUSION: NONE AORTIC ROOT: NORMAL LEFT VENTRICULAR WALL MOTION: MODERATE GLOBAL HYPOKINESIS. DOPPLER/COLOR FLOW: COMMENTS: MODERATE GLOBAL HYPOKINESIS. LEFT VENTRICULAR EJECTION FRACTION 40%. AORTIC SCLEROSIS WITH NO STENOSIS. NO EFFUSION. Follow up CXR: COMPARISON: March 23 FINDINGS: Mild improvement bilateral pulmonary opacities Heart remains enlarged IMPRESSION: Mild improvement in bilateral pulmonary opacities probably pneumoniae Physical Exam: General: Demented. Patient more alert HEENT: Neck supple Respiratory: Diminished. Currently on 15 L Cardiovascular: No edema, Normal S1 S2 Capillary refill: <2 Seconds Gastrointestinal: Normal bowel sounds, Soft and benign. Dobhoff in place Musculoskeletal: No contractures, No erythema, No tenderness Integumentary: No tenderness/swelling, No erythema Neurological: Patient more alert. Dementia noted Impression: Acute hypoxic respiratory failure secondary to COVID-19 pneumonia complicated with UTI Hypotension Acute renal failure superimposed on CKD3 Elevated troponin likely ischemic demand History of CVA/dementia with CT scan showing Bifrontal and left temporoparietal encephalomalacia compatible with remote infarctions and Bilateral basal ganglia lacunar type infarctions Hypernatremia Seizure disorder Plan: Acute hypoxic respiratory failure secondary to COVID-19 pneumonia complicated with UTI: Overall stable. Currently on 15 liters and nonrebreather. Continue with IV fluids. Continue with continue IV steroids, supplements. Patient remains n.p.o. Await speech evaluation. Continue physical therapy and Occupational Therapy. intermediate medications restarted. Patient off Levophed. Continue with Dobhoff feeds. Daughter wants patient to go to a different [facility]. Social work consulted to help with this. I will turn the service over to the hospitalist team tomorrow. I will go over the plan of care with him. Hypotension: Continue IV fluids. Renal function improved. Continue with above plan of care. Acute renal failure superimposed on CKD3: Renal function improved. Nephrology consulted. Baseline GFR appears to be around 60. Continue IV fluids. Continue with above plan of care Elevated troponin likely ischemic demand: Likely demand ischemia, trend troponins, monitor on telemetry. Echocardiogram shows global hypokinesis. Ejection fraction 40%. No cardiac intervention needed. History of CVA/dementia with CT scan showing Bifrontal and left temporoparietal encephalomalacia compatible with remote infarctions and Bilateral basal ganglia lacunar type infarctions: Patient with underlying dementia. Prior CVAs noted. Continue with above plan. Speech to assess. Continue with PT/OT. Continue with IV fluids and Dobhoff feeds. Hypernatremia: Improving. Continue with IV fluids.. Seizure disorder: Continue with medication DVT PPX: Lovenox Code status: Full Discharge Plan: Daughter wants patient to go to a different [facility].
[2021-03-31 14:05] LABS: Arterial Blood Carboxyhemoglob 0.9 % (0-1.5); Blood Gas Oxyhemoglobin 90.6 % (94-97); Blood O2 Saturation 92.2 % (92-98.5)
--- NOTE | 2021-03-31 16:36 | P.PN ---
Date of Service: 03/31/21 Vital Signs Temp Pulse Resp BP Pulse Ox 97.3 F 102 H 32 H 125/99 H 93 03/31/21 16:00 03/31/21 16:00 03/31/21 16:00 03/31/21 16:00 03/31/21 16:00 Medications Acetaminophen (Acetaminophen 650mg/Rect Supp) 650 mg NE Q6HP PRN PRN Reason: TEMP > 100' F Aspirin (Aspirin Ec 81 Mg Tab) 81 mg PO DAILY [facility] Last Admin: 03/31/21 09:11 Dose: 81 mg Documented by: Atorvastatin Calcium (Atorvastatin 20 Mg Tab) 20 mg PO DAILY [facility] Last Admin: 03/31/21 09:12 Dose: 20 mg Documented by: Dextrose (D50w 25 Gm/50 Ml Syringe) 12.5 gm IV PRN PRN; Protocol PRN Reason: HYPOGLYCEMIA Enteral Nutritional Formula (Nepro 1,000 Ml Bot) 1,000 ml FT CONT [facility] Last Admin: 03/27/21 21:04 Dose: 1,000 ml Documented by: Glucagon (Glucagon 1 Mg/Vial) 1 mg IM 1X PRN; Protocol PRN Reason: HYPOGLYCEMIA Norepinephrine Bitartrate 4 mg (/ Dextrose) 254 mls @ 0 mls/hr IV PRN PRN; Protocol PRN Reason: Hemodynamic Parameters Last Admin: 03/24/21 02:50 Dose: 254 mls Documented by: Levetiracetam 1,000 mg/ Sodium (Chloride) 110 mls @ 440 mls/hr IV BID [facility] Last Admin: 03/31/21 09:12 Dose: 110 mls Documented by: Folic Acid 1 mg/ Sodium (Chloride) 50.2 mls @ 200.8 mls/hr IV DAILY [facility] Last Admin: 03/31/21 09:12 Dose: 50.2 mls Documented by: Insulin Human Regular (Insulin -Regular Human 50 Unit/0.5 Ml Ml) 0 unit SQ Q6H [facility]; Protocol Last Admin: 03/31/21 11:37 Dose: Not Given Documented by: Methylprednisolone Sodium Succinate (Methylprednisolone 40 Mg Inj) 40 mg IV BID [facility] Last Admin: 03/31/21 09:12 Dose: 40 mg Documented by: Morphine Sulfate (Morphine 2 Mg/Ml Syr) 2 mg IV Q4H PRN PRN Reason: Pain scale 5-7 (Moderate) Last Admin: 03/31/21 10:44 Dose: 2 mg Documented by: Ondansetron HCl (Ondansetron 4 Mg/2 Ml Vial) 4 mg IV Q6HP PRN PRN Reason: NAUSEA / VOMITING Sodium Chloride (Flush Normal Saline 10 Ml) 10 ml IV BID [facility] Last Admin: 03/31/21 09:13 Dose: 10 ml Documented by: Thiamine HCl (Thiamine 200 Mg/2 Ml Inj) 100 mg IVP DAILY [facility] Last Admin: 03/31/21 09:12 Dose: 100 mg Documented by: Microbiology Results 03/23/21 19:15 Blood - Blood Aerobic Blood Culture - Final No growth in 5 days. 03/23/21 19:15 Blood - Blood Anaerobic Blood Culture - Final No growth in 5 days. 03/23/21 19:00 Blood - Blood Aerobic Blood Culture - Final No growth in 5 days. 03/23/21 19:00 Blood - Blood Anaerobic Blood Culture - Final No growth in 5 days. Assessment/ Plan: Nephrology Progress Note Limited IH/ ROS due to AMS. Currently on Bipap No acute events overnight Vitals, medications blood work and imaging reviewed in the chart General: Cooperative, Mild distress, Confused HEENT: Atraumatic Neck: Supple Respiratory: Diminished Cardiovascular: No edema, Regular rate/rhythm Gastrointestinal: Soft and benign, Non-distended Musculoskeletal: No clubbing, No contractures Integumentary: No rashes, No cyanosis Neurological: Abnormal speech External genitalia: No edema Greater than 30min patient care. Blood work reviewed in the chart. Imagings Data: EXAM DESCRIPTION: RAD - Chest Single View - 03/23/2021 6:49 pm CLINICAL HISTORY: COUGH Chest pain. COMPARISON: Chest Single View dated 11/23/2020; Chest Single View dated 01/07/2019; Chest Single View dated 08/29/2018; Chest Single View dated 04/05/2017 FINDINGS: Portable technique limits examination quality. Mild to moderate bilateral pulmonary opacities are present, which probably represent pulmonary infection/viral infection. The heart is upper limit of normal in size. No displaced fractures. EXAM DESCRIPTION: CT of the head without contrast CLINICAL HISTORY: CONFUSED COMPARISON: Report from 11/23/2020 TECHNIQUE: Axial CT of the head obtained from the skull apex to the skull base without contrast. This exam was performed according to our departmental dose- optimization program, which includes automated exposure control, adjustment of the mA and/or kV according to patient size and/or use of iterative reconstruction technique. FINDINGS: No acute intracranial hemorrhage identified. No mass, mass effect, shift of the midline, abnormal extra-axial fluid collection or CT evidence of acute ischemic change identified. The ventricular system and sulcal spaces are mildly enlarged compatible with mild cerebral atrophy. Scattered areas of hypodensity throughout the supratentorial white matter are nonspecific and may be related to chronic small vessel ischemic change. Bifrontal and left temp oroparietal encephalomalacia compatible with remote infarctions. Bilateral basal ganglia lacunar type infarctions. Mild mucosal thickening of the right maxillary sinus. Mastoid air cells are well aerated. No skull fracture identified. Visualized orbits and globes are unremarkable. Atherosclerotic calcification of the intracranial internal carotid arteries. IMPRESSION: 1. No acute intracranial abnormality by CT criteria. LEFT VENTRICULAR WALL MOTION: MODERATE GLOBAL HYPOKINESIS. DOPPLER/COLOR FLOW: COMMENTS: MODERATE GLOBAL HYPOKINESIS. LEFT VENTRICULAR EJECTION FRACTION 40%. AORTIC SCLEROSIS WITH NO STENOSIS. NO EFFUSION. Conclusions/Impression: VITALY in the setting of sepsis/ hypotension CKD III with proteinuria -No NSAIDs Hypernatremia -Monitor Na Hypocalcemia -Replete prn Septic Shock/ Hypotension -IVF bolus prn -Norepi prn -IV Albumin prn Rhabdomyolysis Systolic CHF, chronic -Low sodium diet -Daily weight Hyperglycemia secondary steroids -RISS Severe malnutrition -Encourage nutrition -Continue protein supplementation COVID-19 PNA -Continue Solumedrol -Continue Rocephin -Continue Baricitinib
[2021-04-01 05:43] LABS: Absolute Lymphocytes (CBC) 0.4 K/uL (0.7-4.9); Basophils % 0.1 % (0-1.3); Hematocrit 40.1 % (39.6-49.0); Lymphocytes % 2.4 % (15.3-44.8); MPV 10.5 fL (7.6-11.3); RBC Red Blood Cell Count 4.23 M/uL (4.33-5.43)
[2021-04-01] MEDS: INSULIN -REGULAR HUMAN 50 UNIT/0.5 ML ML SQ SCH ×4 (06:00→16:59)
[2021-04-01 06:22] LABS: Albumin 1.7 g/dL (3.4-5.0); Bilirubin Total 0.5 mg/dL (0.2-1.0); Ferritin 975.5 ng/mL (26-388); Magnesium 2.1 mg/dL (1.8-2.4); Potassium 4.9 mmol/L (3.5-5.1); Protein, Total 6.3 g/dL (6.4-8.2)
--- NOTE | 2021-04-01 08:26 | RAD REPORT ---
EXAM DESCRIPTION: RAD - Chest Single View - 04/01/2021 6:46 am CLINICAL HISTORY: pneumonia COMPARISON: Chest Single View dated 03/31/2021; Chest Single View dated 03/30/2021; Chest Single View d ated 03/29/2021; Abdomen 1 View (KUB) dated 03/25/2021 FINDINGS: Lines: NG tube below the diaphragm Lungs: Widespread bilateral airspace disease which is unchanged. Pleural: No significant pleural effusions or pneumothorax. Cardiac: Cardiomegaly Bones: No acute fractures. Other: IMPRESSION: Unchanged aeration lungs with widespread bilateral pulmonary opacities .
[2021-04-01] MEDS: ATORVASTATIN 20 MG TAB PO SCH (08:37)
[2021-04-01] MEDS: THIAMINE 200 MG/2 ML INJ IVP SCH (08:37)
[2021-04-01] MEDS: ASPIRIN EC 81 MG TAB PO SCH (08:37)
[2021-04-01] MEDS: BARICITINIB 2 MG TABLET PO SCH (08:39)
[2021-04-01] MEDS: METHYLPREDNISOLONE 40 MG INJ IV SCH ×2 (09:00→21:30)
[2021-04-01] MEDS: FOLIC ACID 1 MG in NA CHLORIDE 0.9% 50 ML IV SCH (09:23)
[2021-04-01] MEDS: levETIRAcetam 1,000 MG in NA CHLORIDE 0.9% 100 ML IV SCH ×2 (09:24→21:21)
[2021-04-01] MEDS ORDERED: BARICITINIB 2 MG TABLET PO SCH (12:00)
[2021-04-01] MEDS: MORPHINE 2 MG/ML SYR IV PRN (22:19)
[2021-04-02] MEDS: MORPHINE 2 MG/ML SYR IV PRN ×2 (03:43→07:17)
[2021-04-02 05:25] LABS: Absolute Lymphocytes (CBC) 0.5 K/uL (0.7-4.9); Basophils % 0.3 % (0-1.3); Hematocrit 49.4 % (39.6-49.0); Lymphocytes % 2.3 % (15.3-44.8); MPV 8.2 fL (7.6-11.3); RBC Red Blood Cell Count 5.31 M/uL (4.33-5.43)
[2021-04-02] MEDS ORDERED: LORazepam 2 MG/ML VIAL IV ONE (05:41)
[2021-04-02 05:47] LABS: Albumin 2.5 g/dL (3.4-5.0); Bilirubin Total 0.6 mg/dL (0.2-1.0); Ferritin 1341.5 ng/mL (26-388); Protein, Total 7.2 g/dL (6.4-8.2)
[2021-04-02 05:54] LABS: Magnesium 3.7 mg/dL (1.8-2.4)
[2021-04-02 05:55] LABS: Potassium 6.2 mmol/L (3.5-5.1)
[2021-04-02] MEDS: INSULIN -REGULAR HUMAN 50 UNIT/0.5 ML ML SQ SCH ×4 (06:00→18:00)
[2021-04-02] MEDS ORDERED: LORazepam 2 MG/ML VIAL ONE (06:00)
[2021-04-02 07:01] LABS: Potassium 4.6 mmol/L (3.5-5.1)
--- NOTE | 2021-04-02 07:08 | P.PN ---
Date of Service: 04/02/21 Subjective Patient is clinically not really improving. Patient's labs came back this morning abnormal-we will repeat. Will talk with patient's daughter regarding current clinical status. Patient's chest a x-ray with severe diffuse inflammatory changes. Patient apparently had gone to [facility] around November. He was treated in the hospital with a urinary tract infection. He was discharged to the facility. He normally was requiring minimal assistance prior to this. Afterwards, since being at the skilled nursing. He has remained fairly stable. He is still requiring minimal assistance according to the nursing staff at the facility. However, he was very obtunded when he was 1st evaluated Saturday. His mentation has improved throughout the hospitalization. He is opening eyes up and looks to be more alert. Patient is not really following commands. Continue with nutrition. Continue with Nepro. Patient has required PEG tube placement in the past. Review of Systems is unable to be obtained Physical Examination - Vital Signs Reviewed - Physical Exam General: Disheveled, Mild distress, Confused; patient is more alert Respiratory: Diminished, Expiratory wheezes Cardiovascular: Regular rate/rhythm, Normal S1 S2 Gastrointestinal: Normal bowel sounds, Soft and benign, Non-distended Musculoskeletal: No clubbing, No swelling Neurological: Cranial nerves 3-12 intact, Abnormal gait, Abnormal speech, Abnormal strength, Abnormal tone, Dementia Assessment & Plan - Problems (Diagnosis) (1) 2019 novel coronavirus-infected pneumonia (NCIP) Current Visit: Yes Status: Acute (2) VITALY (acute kidney injury) Onset Date: ~04/05/17 Current Visit: No Status: Acute (3) Dementia, vascular Current Visit: No Status: Acute (4) Transient ischemic attack Current Visit: No Status: Acute (5) CVA (cerebral vascular accident) Onset Date: Unknown Current Visit: No Status: Chronic Qualifiers: CVA mechanism: embolism Precerebral and cerebral artery: unspecified precerebral artery Qualified Code(s): I63.10 - Cerebral infarction due to embolism of unspecified precerebral artery (6) Hypertension Onset Date: Unknown Current Visit: No Status: Chronic Qualifiers: Hypertension type: essential hypertension (7) Seizure Onset Date: 01/07/17 Current Visit: No Status: Chronic - Plan Continue with plan of care as mentioned below: 1. Continue with IV steroids; tapering down dosing 2. Continue monitoring renal function. Repeat potassium level and BUN and creatinine; being followed by Nephrology 3. Patient remains a full code at this time. Will discuss with family regarding patient's current prognosis. 4. O2 per protocol; continue on BiPAP support 5. Appreciated pulmonary input at this time 6. Continue with nebulizer treatments as needed along with antibiotics if necessary 7. GI and DVT prophylaxis
[2021-04-02 07:10] LABS: Blood Morphology Comment NOT SEEN (NOT SEEN); Platelet Estimate ADEQ; Platelets, Giant PRESENT
--- NOTE | 2021-04-02 07:16 | P.PN ---
Date of Service: 04/01/21 Subjective Patient with no significant changes in respiratory status; patient's clinical status is not really improving. Review of Systems is unable to be obtained Physical Examination - Vital Signs Reviewed - Physical Exam General: Disheveled, Mild distress, Confused; patient is more alert Respiratory: Diminished, Expiratory wheezes Cardiovascular: Regular rate/rhythm, Normal S1 S2 Gastrointestinal: Normal bowel sounds, Soft and benign, Non-distended Musculoskeletal: No clubbing, No swelling Neurological: Cranial nerves 3-12 intact, Abnormal gait, Abnormal speech, Abnormal strength, Abnormal tone, Dementia Assessment & Plan - Problems (Diagnosis) (1) 2019 novel coronavirus-infected pneumonia (NCIP) Current Visit: Yes Status: Acute (2) VITALY (acute kidney injury) Onset Date: ~04/05/17 Current Visit: No Status: Acute (3) Dementia, vascular Current Visit: No Status: Acute (4) Transient ischemic attack Current Visit: No Status: Acute (5) CVA (cerebral vascular accident) Onset Date: Unknown Current Visit: No Status: Chronic Qualifiers: CVA mechanism: embolism Precerebral and cerebral artery: unspecified precerebral artery Qualified Code(s): I63.10 - Cerebral infarction due to embolism of unspecified precerebral artery (6) Hypertension Onset Date: Unknown Current Visit: No Status: Chronic Qualifiers: Hypertension type: essential hypertension (7) Seizure Onset Date: 01/07/17 Current Visit: No Status: Chronic - Plan Continue with plan of care as mentioned below: 1. Continue with IV steroids; 2. Continue monitoring renal function. Repeat potassium level and BUN and creatinine; being followed by Nephrology 3. Will discuss with daughter regarding long-term prognosis and plan of care 4. Remains on 85% oxygen. Hopefully we can continue to wean down. 5. Appreciated pulmonary input at this time 6. Monitor neurologic status closely. Continue anti epileptics 7. GI and DVT prophylaxis
--- NOTE | 2021-04-02 07:30 | P.PN ---
Date of Service: 03/31/21 Subjective Patient continues on BiPAP support. Patient's respiratory status has not really changed at this time. Review of Systems is unable to be obtained Physical Examination - Vital Signs Reviewed - Physical Exam General: Disheveled, Mild distress, Confused; patient is more alert Respiratory: Diminished breath sounds bilaterally Cardiovascular: Regular rate/rhythm, Normal S1 S2 Gastrointestinal: Normal bowel sounds, Soft and benign, Non-distended Musculoskeletal: No clubbing, No swelling Neurological: Mentation is altered. Patient is bilaterally weak with increased tonicity bilaterally Assessment & Plan - Problems (Diagnosis) (1) 2019 novel coronavirus-infected pneumonia (NCIP) Current Visit: Yes Status: Acute (2) VITALY (acute kidney injury) Onset Date: ~04/05/17 Current Visit: No Status: Acute (3) Dementia, vascular Current Visit: No Status: Acute (4) Transient ischemic attack Current Visit: No Status: Acute (5) CVA (cerebral vascular accident) Onset Date: Unknown Current Visit: No Status: Chronic Qualifiers: CVA mechanism: embolism Precerebral and cerebral artery: unspecified precerebral artery Qualified Code(s): I63.10 - Cerebral infarction due to embolism of unspecified precerebral artery (6) Hypertension Onset Date: Unknown Current Visit: No Status: Chronic Qualifiers: Hypertension type: essential hypertension (7) Seizure Onset Date: 01/07/17 Current Visit: No Status: Chronic - Plan Continue with plan of care as mentioned below: 1. Continue with IV steroids. Respiratory status has stabilized. However, patient really is not improving. Prognosis remains poor. 2. Monitor renal function closely 3. Will discuss with daughter regarding long-term prognosis and plan of care 4. Remains on BiPAP at an FiO2 of 90%. 5. Appreciated pulmonary input at this time 6. Monitor neurologic status closely. Continue anti epileptics 7. GI and DVT prophylaxis
[2021-04-02] MEDS ORDERED: RSI MEDICATION KIT IV ONE (08:02)
[2021-04-02] MEDS ORDERED: propofoL 500 MG/50 ML ML IV ONE (08:04)
[2021-04-02] MEDS ORDERED: NA CHLORIDE 0.9% 1,000 ML ONE (08:04)
--- NOTE | 2021-04-02 08:37 | RAD REPORT ---
EXAM DESCRIPTION: RAD - Chest Single View - 04/02/2021 8:21 am CLINICAL HISTORY: ET Tube placement Chest pain. COMPARISON: Chest Single View dated 04/01/2021; Chest Single View dated 03/31/2021; Chest Single View dated 03/30/2021; Chest Single View dated 03/29/2021 FINDINGS: Portable technique limits examination quality. Tip of the endotracheal tube is at the level of the mid aortic arch. Enteric tube descends in the sto mach. Extensive widespread bilateral pulmonary opacities are present, mildly worse relative to yester day's study.The heart is upper limit normal size. .
[2021-04-02] MEDS: LORazepam 2 MG/ML VIAL IV PRN (08:45)
[2021-04-02] MEDS: propofoL 500 MG/50 ML ML IV PRN ×6 (08:49→23:47)
[2021-04-02] MEDS: THIAMINE 200 MG/2 ML INJ IVP SCH (09:04)
[2021-04-02] MEDS: ATORVASTATIN 20 MG TAB PO SCH (09:04)
[2021-04-02] MEDS: ASPIRIN EC 81 MG TAB PO SCH (09:05)
[2021-04-02] MEDS: METHYLPREDNISOLONE 40 MG INJ IV SCH ×2 (09:05→20:54)
[2021-04-02] MEDS: FOLIC ACID 1 MG in NA CHLORIDE 0.9% 50 ML IV SCH (09:05)
[2021-04-02] MEDS: levETIRAcetam 1,000 MG in NA CHLORIDE 0.9% 100 ML IV SCH ×2 (09:05→20:52)
[2021-04-02] MEDS: BARICITINIB 2 MG TABLET PO SCH (09:06)
--- NOTE | 2021-04-02 09:22 | P.PN ---
Subjective Patient had to be intubated. Apparently developed respiratory distress and nurses spoke with Pulmonary. Mee hoffman was called. I went out to see the patient. Emergency room physician was there is well. Patient proceeded with getting intubated after being giving sedatives. Will notify family Review of Systems is unable to be obtained Physical Examination - Vital Signs Reviewed - Physical Exam General: ET tube in place; patient intubated Respiratory: Clear bilaterally Cardiovascular: Regular rate/rhythm, Normal S1 S2 Gastrointestinal: Normal bowel sounds, Soft and benign, Non-distended Musculoskeletal: No clubbing, No swelling Neurological: Patient with generalized weakness Assessment & Plan - Problems (Diagnosis) (1) 2019 novel coronavirus-infected pneumonia (NCIP) Current Visit: Yes Status: Acute (2) VITALY (acute kidney injury) Onset Date: ~04/05/17 Current Visit: No Status: Acute (3) Dementia, vascular Current Visit: No Status: Acute (4) Transient ischemic attack Current Visit: No Status: Acute (5) CVA (cerebral vascular accident) Onset Date: Unknown Current Visit: No Status: Chronic Qualifiers: CVA mechanism: embolism Precerebral and cerebral artery: unspecified precerebral artery Qualified Code(s): I63.10 - Cerebral infarction due to embolism of unspecified precerebral artery (6) Hypertension Onset Date: Unknown Current Visit: No Status: Chronic Qualifiers: Hypertension type: essential hypertension (7) Seizure Onset Date: 01/07/17 Current Visit: No Status: Chronic - Plan Continue with plan of care as mentioned below: 1. Continue with IV steroids 2. Continue with vent management 3. Continue monitoring renal function 4. Continue anti-platelet therapy 5. Pulmonary consultation obtained 6. Continue with neb treatments as needed along with antibiotics 7. GI and DVT prophylaxis
--- NOTE | 2021-04-02 11:16 | P.PN ---
Subjective Date of Service: 04/02/21 Primary Care Provider: intermediate doctor Chief Complaint: Respiratory failure patient on mechanical ventilation Patient's condition deteriorated had to be placed on mechanical ventilation Review of Systems is unable to be obtained Physical Examination - Vital Signs Temperature: 98.4 F Blood Pressure: 92/70 Pulse: 112 Respirations: 35 Pulse Ox (%): 96 - Physical Exam General: Unresponsive Assessment & Plan - Problems (Diagnosis) (1) 2019 novel coronavirus-infected pneumonia (NCIP) Current Visit: Yes Status: Acute Plan: Respiratory failure patient now on mechanical ventilation currently stable labs reviewed white count is mildly elevated patient has diffuse lung disease is cussed with relatives prognosis poor on Barcitinib
[2021-04-02] MEDS ORDERED: ETOMIDATE 20 MG/10 ML VIAL IV ONE (15:56)
[2021-04-02] MEDS ORDERED: SUCCINYLCHOLINE 20 MG/ML (10 ML) IV ONE (15:56)
[2021-04-03] MEDS: MORPHINE 2 MG/ML SYR IV PRN (02:46)
[2021-04-03] MEDS: LORazepam 2 MG/ML VIAL IV PRN ×3 (02:46→22:17)
[2021-04-03] MEDS: propofoL 500 MG/50 ML ML IV PRN ×5 (04:07→21:43)
[2021-04-03 05:53] LABS: Albumin 1.6 g/dL (3.4-5.0); Bilirubin Total 0.4 mg/dL (0.2-1.0); Ferritin 1154.1 ng/mL (26-388); Magnesium 2.4 mg/dL (1.8-2.4); Protein, Total 6.1 g/dL (6.4-8.2)
--- NOTE | 2021-04-03 05:54 | P.PN ---
Subjective Date of Service: 04/03/21 Primary Care Provider: snf doctor Chief Complaint: Respiratory failure patient on mechanical ventilation Subjective: Demented (Patient remains intubated. 75% FiO2) Physical Examination - Vital Signs Temperature: 97.2 F Blood Pressure: 104/80 Pulse: 87 Respirations: 25 Pulse Ox (%): 100 Assessment & Plan Discharge Plan: Skilled Nursing Plan to discharge in: Greater than 2 days Physician Review Additional Text: COVID: Positive CXR: COMPARISON: Chest Single View dated 11/23/2020; Chest Single View dated ; Chest Single View dated 08/29/2018; Chest Single View dated 04/05/2017 FINDINGS: Portable technique limits examination quality. Mild to moderate bilateral pulmonary opacities are present, which probably represent pulmonary infection/viral infection. The heart is upper limit of normal in size. No displaced fractures. CT Head: COMPARISON: Report from 11/23/2020 TECHNIQUE: Axial CT of the head obtained from the skull apex to the skull base without contrast. This exam was performed according to our departmental dose- optimization program, which includes automated exposure control, adjustment of the mA and/or kV according to patient size and/or use of iterative reconstruction technique. FINDINGS: No acute intracranial hemorrhage identified. No mass, mass effect, shift of the midline, abnormal extra-axial fluid collection or CT evidence of acute ischemic change identified. The ventricular system and sulcal spaces are mildly enlarged compatible with mild cerebral atrophy. Scattered areas of hypodensity throughout the supratentorial white matter are nonspecific and may be related to chronic small vessel ischemic change. Bifrontal and left temporoparietal encephalomalacia compatible with remote infarctions. Bilateral basal ganglia lacunar type infarctions. Mild mucosal thickening of the right maxillary sinus. Mastoid air cells are well aerated. No skull fracture identified. Visualized orbits and globes are unremarkable. Atherosclerotic calcification of the intracranial internal carotid arteries. IMPRESSION: 1. No acute intracranial abnormality by CT criteria. ECHO: MEASUREMENTS (cm) DIASTOLIC (NORMALS) SYSTOLIC (NORMALS) IVSd 1.1 (0.6-1.2) LA Diam 2.8 (1.9-4.0) LVEF 36% LVIDd 5.9 (3.5-5.7) LVIDs 4.8 (2.0-3.5) %FS 18% LVPWd 1.1 (0.6-1.2) Ao Diam 2.5 (2.0-3.7) DIMENSIONAL ASSESSMENT: RIGHT ATRIUM: NORMAL LEFT ATRIUM: NORMAL RIGHT VENTRICLE: NORMAL LEFT VENTRICLE: NORMAL TRICUSPID VALVE: NORMAL MITRAL VALVE: NORMAL PULMONIC VALVE: NORMAL AORTIC VALVE: NORMAL PERICARDIAL EFFUSION: NONE AORTIC ROOT: NORMAL LEFT VENTRICULAR WALL MOTION: MODERATE GLOBAL HYPOKINESIS. DOPPLER/COLOR FLOW: COMMENTS: MODERATE GLOBAL HYPOKINESIS. LEFT VENTRICULAR EJECTION FRACTION 40%. AORTIC SCLEROSIS WITH NO STENOSIS. NO EFFUSION. Follow up CXR 04.02.2021: COMPARISON: Chest Single View dated 04/01/2021; Chest Single View dated 03/31/2021; Chest Single View dated 03/30/2021; Chest Single View dated 03/29/2021 FINDINGS: Portable technique limits examination quality. Tip of the endotracheal tube is at the level of the mid aortic arch. Enteric tube descends in the stomach. Extensive widespread bilateral pulmonary opacities are present, mildly worse relative to yesterday's study.The heart is upper limit normal size. Physical Exam: General: Demented. Patient more alert HEENT: Neck supple Respiratory: Remains on the ventilator at 75% FiO2 Cardiovascular: No edema, Normal S1 S2 Capillary refill: <2 Seconds Gastrointestinal: Normal bowel sounds, Soft and benign. Dobhoff in place Musculoskeletal: No contractures, No erythema, No tenderness Integumentary: No tenderness/swelling, No erythema Neurological: Patient more alert. Dementia noted Impression: Acute hypoxic respiratory failure secondary to COVID-19 pneumonia complicated with UTI Hypotension Acute renal failure superimposed on CKD3 Elevated troponin likely ischemic demand History of CVA/dementia with CT scan showing Bifrontal and left temporoparietal encephalomalacia compatible with remote infarctions and Bilateral basal ganglia lacunar type infarctions Hypernatremia Seizure disorder Plan: Acute hypoxic respiratory failure secondary to COVID-19 pneumonia complicated with UTI: Patient remains on ventilator at 75% FiO2. White count improved. Continue IV steroids and supplements. Will discuss with pulmonology about plan of care. Hypotension: Improved overall. Renal function stable. No longer on IV fluids Acute renal failure superimposed on CKD3: Overall improved. Continue with nephrology recommendations Elevated troponin likely ischemic demand: Likely demand ischemia, trend troponins, monitor on telemetry. Echocardiogram shows global hypokinesis. Ejection fraction 40%. No cardiac intervention needed. History of CVA/dementia with CT scan showing Bifrontal and left temporoparietal encephalomalacia compatible with remote infarctions and Bilateral basal ganglia lacunar type infarctions: Patient with underlying dementia. Prior CVAs noted. Continue with above plan. Continue with Dobbhoff feeds. Hypernatremia: Overall improved. No longer on IV fluids Seizure disorder: Continue with medication DVT PPX: Lovenox Code status: Full Discharge Plan: Daughter wants patient to go to a different detention. Time Spent Managing Pts Care (In Minutes): 55
[2021-04-03] MEDS: INSULIN -REGULAR HUMAN 50 UNIT/0.5 ML ML SQ SCH ×5 (06:00→23:58)
[2021-04-03 06:03] LABS: Absolute Lymphocytes (CBC) 0.4 K/uL (0.7-4.9); Basophils % 0.1 % (0-1.3); Lymphocytes % 2.3 % (15.3-44.8); MPV 10.5 fL (7.6-11.3); RBC Red Blood Cell Count 4.18 M/uL (4.33-5.43)
[2021-04-03 07:34] LABS: Blood Morphology Comment NOT SEEN (NOT SEEN); Platelet Estimate ADEQ; Platelets, Giant PRESENT
[2021-04-03] MEDS: BARICITINIB 2 MG TABLET PO SCH (08:34)
[2021-04-03] MEDS: THIAMINE 200 MG/2 ML INJ IVP SCH (08:34)
[2021-04-03] MEDS: ASPIRIN EC 81 MG TAB PO SCH (08:34)
[2021-04-03] MEDS: ATORVASTATIN 20 MG TAB PO SCH (08:34)
[2021-04-03] MEDS: FOLIC ACID 1 MG in NA CHLORIDE 0.9% 50 ML IV SCH (08:35)
[2021-04-03] MEDS: METHYLPREDNISOLONE 40 MG INJ IV SCH ×2 (08:35→21:00)
[2021-04-03] MEDS: levETIRAcetam 1,000 MG in NA CHLORIDE 0.9% 100 ML IV SCH ×2 (08:35→20:03)
--- NOTE | 2021-04-03 15:47 | P.PN ---
Subjective Date of Service: 04/03/21 Primary Care Provider: custodial doctor Chief Complaint: Respiratory failure patient on mechanical ventilation NC unresponsive Review of Systems is unable to be obtained Physical Examination - Vital Signs Temperature: 97.5 F Blood Pressure: 114/89 Pulse: 103 Respirations: 29 Pulse Ox (%): 98 - Physical Exam General: Unresponsive Assessment & Plan - Problems (Diagnosis) (1) 2019 novel coronavirus-infected pneumonia (NCIP) Current Visit: Yes Status: Acute Plan: Resp failure / labs reviewed/XRy ordered/ Titrate sat to 90% Do ABG's/ on Max TX/CXRY severe COVID
[2021-04-03] MEDS: MIDAZOLAM HCL 2 MG/2 ML INJ IV PRN (22:17)
[2021-04-03] MEDS: FENTANYL CITR 100 MCG/2 ML IV PRN (23:50)
[2021-04-04] MEDS: propofoL 500 MG/50 ML ML IV PRN ×7 (02:11→23:16)
[2021-04-04] MEDS: LORazepam 2 MG/ML VIAL IV PRN (04:00)
[2021-04-04] MEDS: MIDAZOLAM HCL 2 MG/2 ML INJ IV PRN (04:04)
[2021-04-04] MEDS: HALOPERIDOL LACT 5 MG/ML INJ IV PRN (04:05)
[2021-04-04 05:10] LABS: Absolute Lymphocytes (CBC) 1.4 K/uL (0.7-4.9); Basophils % 0.2 % (0-1.3); Hematocrit 44.2 % (39.6-49.0); Lymphocytes % 7.2 % (15.3-44.8); MPV 10.4 fL (7.6-11.3); RBC Red Blood Cell Count 4.66 M/uL (4.33-5.43)
[2021-04-04 05:49] LABS: Albumin 1.7 g/dL (3.4-5.0); Bilirubin Total 0.5 mg/dL (0.2-1.0); Ferritin 1000.4 ng/mL (26-388); Magnesium 2.2 mg/dL (1.8-2.4); Potassium 4.9 mmol/L (3.5-5.1); Protein, Total 6.8 g/dL (6.4-8.2)
--- NOTE | 2021-04-04 05:56 | P.PN ---
Subjective Date of Service: 04/04/21 Primary Care Provider: custodial doctor Chief Complaint: Respiratory failure patient on mechanical ventilation Subjective: Other (Patient remains on ventilator.) Physical Examination - Vital Signs Temperature: 98.0 F Blood Pressure: 122/92 Pulse: 106 Respirations: 40 Pulse Ox (%): 97 Assessment & Plan Discharge Plan: Prison Plan to discharge in: Greater than 2 days Physician Review Additional Text: COVID: Positive CXR: COMPARISON: Chest Single View dated 11/23/2020; Chest Single View dated 01/07/2019; Chest Single View dated 08/29/2018; Chest Single View dated 04/05/2017 FINDINGS: Portable technique limits examination quality. Mild to moderate bilateral pulmonary opacities are present, which probably represent pulmonary infection/viral infection. The heart is upper limit of normal in size. No displaced fractures. CT Head: COMPARISON: Report from 11/23/2020 TECHNIQUE: Axial CT of the head obtained from the skull apex to the skull base without contrast. This exam was performed according to our departmental dose- optimization program, which includes automated exposure control, adjustment of the mA and/or kV according to patient size and/or use of iterative reconstruction technique. FINDINGS: No acute intracranial hemorrhage identified. No mass, mass effect, shift of the midline, abnormal extra-axial fluid collection or CT evidence of acute ischemic change identified. The ventricular system and sulcal spaces are mildly enlarged compatible with mild cerebral atrophy. Scattered areas of hypodensity throughout the supratentorial white matter are nonspecific and may be related to chronic small vessel ischemic change. Bifrontal and left temporoparietal encephalomalacia compatible with remote infarctions. Bilateral basal ganglia lacunar type infarctions. Mild mucosal thickening of the right maxillary sinus. Mastoid air cells are well aerated. No skull fracture identified. Visualized orbits and globes are unremarkable. Atherosclerotic calcification of the intracranial internal carotid arteries. IMPRESSION: 1. No acute intracranial abnormality by CT criteria. ECHO: MEASUREMENTS (cm) DIASTOLIC (NORMALS) SYSTOLIC (NORMALS) IVSd 1.1 (0.6-1.2) LA Diam 2.8 (1.9-4.0) LVEF 36% LVIDd 5.9 (3.5-5.7) LVIDs 4.8 (2.0-3.5) %FS 18% LVPWd 1.1 (0.6-1.2) Ao Diam 2.5 (2.0-3.7) DIMENSIONAL ASSESSMENT: RIGHT ATRIUM: NORMAL LEFT ATRIUM: NORMAL RIGHT VENTRICLE: NORMAL LEFT VENTRICLE: NORMAL TRICUSPID VALVE: NORMAL MITRAL VALVE: NORMAL PULMONIC VALVE: NORMAL AORTIC VALVE: NORMAL PERICARDIAL EFFUSION: NONE AORTIC ROOT: NORMAL LEFT VENTRICULAR WALL MOTION: MODERATE GLOBAL HYPOKINESIS. DOPPLER/COLOR FLOW: COMMENTS: MODERATE GLOBAL HYPOKINESIS. LEFT VENTRICULAR EJECTION FRACTION 40%. AORTIC SCLEROSIS WITH NO STENOSIS. NO EFFUSION. Follow up CXR 04.02.2021: COMPARISON: Chest Single View dated 04/01/2021; Chest Single View dated 03/31/2021; Chest Single View dated 03/30/2021; Chest Single View dated 03/29/2021 FINDINGS: Portable technique limits examination quality. Tip of the endotracheal tube is at the level of the mid aortic arch. Enteric tube descends in the stomach. Extensive widespread bilateral pulmonary opacities are present, mildly worse relative to yesterday's study.The heart is upper limit normal size. Physical Exam: General: Demented. Patient more alert HEENT: Neck supple Respiratory: Remains on the ventilator at 35% FiO2 Cardiovascular: No edema, Normal S1 S2 Capillary refill: <2 Seconds Gastrointestinal: Normal bowel sounds, Soft and benign. Dobhoff in place Musculoskeletal: No contractures, No erythema, No tenderness Integumentary: No tenderness/swelling, No erythema Neurological: Patient more alert. Dementia noted Impression: Acute hypoxic respiratory failure secondary to COVID-19 pneumonia complicated with UTI Hypotension Acute renal failure superimposed on CKD3 Elevated troponin likely ischemic demand History of CVA/dementia with CT scan showing Bifrontal and left temporoparietal encephalomalacia compatible with remote infarctions and Bilateral basal ganglia lacunar type infarctions Hypernatremia Seizure disorder Plan: Acute hypoxic respiratory failure secondary to COVID-19 pneumonia complicated with UTI: Patient remains on ventilator at 35 % FiO2. Continue IV steroids and supplements. Will discuss with pulmonology about plan of care. Will discuss plan of care with daughter. We discussed CODE STATUS. Hypotension: Improved overall. Renal function stable. No longer on IV fluids Acute renal failure superimposed on CKD3: Overall improved. Continue with nephrology recommendations Elevated troponin likely ischemic demand: Likely demand ischemia, trend tropo nins, monitor on telemetry. Echocardiogram shows global hypokinesis. Ejection fraction 40%. No cardiac intervention needed. History of CVA/dementia with CT scan showing Bifrontal and left temporoparietal encephalomalacia compatible with remote infarctions and Bilateral basal ganglia lacunar type infarctions: Patient with underlying dementia. Prior CVAs noted. Continue with above plan. Continue with Dobbhoff feeds. Hypernatremia: Overall improved. No longer on IV fluids Seizure disorder: Continue with medication DVT PPX: Lovenox Code status: Full Discharge Plan: Daughter wants patient to go to a different snf. Time Spent Managing Pts Care (In Minutes): 55
[2021-04-04] MEDS: INSULIN -REGULAR HUMAN 50 UNIT/0.5 ML ML SQ SCH ×3 (06:00→17:35)
--- NOTE | 2021-04-04 08:24 | RAD REPORT ---
EXAM DESCRIPTION: RAD - Chest Single View - 04/04/2021 6:03 am CLINICAL HISTORY: respfailure Chest pain. COMPARISON: Chest Single View dated 04/02/2021; Chest Single View dated 04/01/2021; Chest Single View dated 03/31/2021; Chest Single View dated 03/30/2021 FINDINGS: Portable technique limits examination quality. Tip of the endotracheal tube is at the level of the superior aortic arch. Enteric tube descends into the stomach. Bilateral pulmonary opacities have mildly improved since comparative study. The heart is upper limit normal in size. IMPRESSION: Mild improvement in lung aeration is noted since prior examination.
[2021-04-04] MEDS: levETIRAcetam 1,000 MG in NA CHLORIDE 0.9% 100 ML IV SCH ×2 (09:08→20:23)
[2021-04-04] MEDS: FOLIC ACID 1 MG in NA CHLORIDE 0.9% 50 ML IV SCH (09:09)
[2021-04-04] MEDS: THIAMINE 200 MG/2 ML INJ IVP SCH (09:38)
[2021-04-04] MEDS: ASPIRIN EC 81 MG TAB PO SCH (09:38)
[2021-04-04] MEDS: BARICITINIB 2 MG TABLET PO SCH (09:38)
[2021-04-04] MEDS: ATORVASTATIN 20 MG TAB PO SCH (09:38)
[2021-04-04] MEDS: METHYLPREDNISOLONE 40 MG INJ IV SCH ×2 (09:38→20:23)
--- NOTE | 2021-04-04 14:51 | P.PN ---
Subjective Date of Service: 04/04/21 Primary Care Provider: skilled nursing doctor Chief Complaint: Respiratory failure patient on mechanical ventilation Patient tachypneic on a ventilator nonresponsive Review of Systems is unable to be obtained Physical Examination - Vital Signs Temperature: 98.0 F Blood Pressure: 122/92 Pulse: 106 Respirations: 40 Pulse Ox (%): 97 - Physical Exam General: Unresponsive Assessment & Plan - Problems (Diagnosis) (1) 2019 novel coronavirus-infected pneumonia (NCIP) Current Visit: Yes Status: Acute Plan: Respiratory failure oxygen requirements have improved change ventilator to SIMV pressure support patient is very tachypneic FiO2 of 35% labs reviewed white count is minimally elevated improvement in the chest x-ray
[2021-04-05] MEDS: propofoL 500 MG/50 ML ML IV PRN ×5 (03:16→20:10)
[2021-04-05 05:37] LABS: Absolute Lymphocytes (CBC) 0.6 K/uL (0.7-4.9); Basophils % 0.2 % (0-1.3); Hematocrit 42.3 % (39.6-49.0); Lymphocytes % 3.1 % (15.3-44.8); MPV 10.1 fL (7.6-11.3); RBC Red Blood Cell Count 4.39 M/uL (4.33-5.43)
--- NOTE | 2021-04-05 05:56 | P.PN ---
Subjective Date of Service: 04/05/21 Primary Care Provider: skilled nursing doctor Chief Complaint: Respiratory failure patient on mechanical ventilation Subjective: Other (Overall stable. Less tachypneic today. Currently on ventilator at 50% FiO2) Physical Examination - Vital Signs Temperature: 97.6 F Blood Pressure: 115/85 Pulse: 84 Respirations: 36 Pulse Ox (%): 93 Assessment & Plan Discharge Plan: Half-Way Plan to discharge in: Greater than 2 days Physician Review Additional Text: COVID: Positive CXR: COMPARISON: Chest Single View dated 11/23/2020; Chest Single View dated 01/07/2019; Chest Single View dated 08/29/2018; Chest Single View dated 04/05/2017 FINDINGS: Portable technique limits examination quality. Mild to moderate bilateral pulmonary opacities are present, which probably represent pulmonary infection/viral infection. The heart is upper limit of normal in size. No displaced fractures. CT Head: COMPARISON: Report from 11/23/2020 TECHNIQUE: Axial CT of the head obtained from the skull apex to the skull base without contrast. This exam was performed according to our departmental dose- optimization program, which includes automated exposure control, adjustment of the mA and/or kV according to patient size and/or use of iterative reconstruction technique. FINDINGS: No acute intracranial hemorrhage identified. No mass, mass effect, shift of the midline, abnormal extra-axial fluid collection or CT evidence of acute ischemic change identified. The ventricular system and sulcal spaces are mildly enlarged compatible with mild cerebral atrophy. Scattered areas of hypodensity throughout the supratentorial white matter are nonspecific and may be related to chronic small vessel ischemic change. Bifrontal and left temporoparietal encephalomalacia compatible with remote infarctions. Bilateral basal ganglia lacunar type infarctions. Mild mucosal thickening of the right maxillary sinus. Mastoid air cells are well aerated. No skull fracture identified. Visualized orbits and globes are unremarkable. Atherosclerotic calcification of the intracranial internal carotid arteries. IMPRESSION: 1. No acute intracranial abnormality by CT criteria. ECHO: MEASUREMENTS (cm) DIASTOLIC (NORMALS) SYSTOLIC (NORMALS) IVSd 1.1 (0.6-1.2) LA Diam 2.8 (1.9-4.0) LVEF 36% LVIDd 5.9 (3.5-5.7) LVIDs 4.8 (2.0-3.5) %FS 18% LVPWd 1.1 (0.6-1.2) Ao Diam 2.5 (2.0-3.7) DIMENSIONAL ASSESSMENT: RIGHT ATRIUM: NORMAL LEFT ATRIUM: NORMAL RIGHT VENTRICLE: NORMAL LEFT VENTRICLE: NORMAL TRICUSPID VALVE: NORMAL MITRAL VALVE: NORMAL PULMONIC VALVE: NORMAL AORTIC VALVE: NORMAL PERICARDIAL EFFUSION: NONE AORTIC ROOT: NORMAL LEFT VENTRICULAR WALL MOTION: MODERATE GLOBAL HYPOKINESIS. DOPPLER/COLOR FLOW: COMMENTS: MODERATE GLOBAL HYPOKINESIS. LEFT VENTRICULAR EJECTION FRACTION 40%. AORTIC SCLEROSIS WITH NO STENOSIS. NO EFFUSION. Follow up CXR 04.05.2021: COMPARISON: Chest Single View dated 04/04/2021; Chest Single View dated 04/02/2021; Chest Single View dated 04/01/2021; Chest Single View dated 03/31/2021; Head Brain Wo Cont dated 11/23/2020; Chest Single View dated 03/25/2021 FINDINGS: Lines: Endotracheal tube at the aortic arch. Enteric tube below the diaphragm. Lungs: Similar mild to mild widespread bilateral airspace disease. Pleural: No significant pleural effusions or pneumothorax. Cardiac: Loop recorder noted. Heart size unchanged. Bones: No acute fractures. IMPRESSION: No appreciable change in aeration lungs with mild to moderate bilateral airspace disease. Support apparatus in satisfactory position. Physical Exam: General: Demented. Patient with increased sedation HEENT: Neck supple Respiratory: Remains on the ventilator at 50% FiO2 Cardiovascular: No edema, Normal S1 S2 Capillary refill: <2 Seconds Gastrointestinal: Normal bowel sounds, Soft and benign. Dobhoff in place Musculoskeletal: No contractures, No erythema, No tenderness Integumentary: No tenderness/swelling, No erythema Neurological: Patient more alert. Dementia noted Impression: Acute hypoxic respiratory failure secondary to COVID-19 pneumonia complicated with UTI Hypotension Acute renal failure superimposed on CKD3 Elevated troponin likely ischemic demand History of CVA/dementia with CT scan showing Bifrontal and left temporoparietal encephalomalacia compatible with remote infarctions and Bilateral basal ganglia lacunar type infarctions Hypernatremia Seizure disorder Plan: Acute hypoxic respiratory failure secondary to COVID-19 pneumonia complicated with UTI: Patient remains on ventilator at 50 % FiO2. Continue IV steroids, baricitinib and supplements. Continue with pulmonology's recommendations on plan of care. Continue with nutrition. We will monitor this closely. Case discussed with daughter. Patient remains full code. Hypotension: Improved overall. Renal function stable. Acute renal failure superimposed on CKD3: Overall improved. Continue with nephrology recommendations Elevated troponin likely ischemic demand: Likely demand ischemia, trend troponins, monitor on telemetry. Echocardiogram shows global hypokinesis. Ejection fraction 40%. No cardiac intervention needed. History of CVA/dementia with CT scan showing Bifrontal and left temporoparietal encephalomalacia compatible with remote infarctions and Bilateral basal ganglia lacunar type infarctions: Patient with underlying dementia. Prior CVAs noted. Continue with above plan. Continue with Dobbhoff feeds. Hypernatremia: Overall improved. Seizure disorder: Continue with medication DVT PPX: Lovenox Code status: Full Discharge Plan: Daughter wants patient to go to a different residential. Time Spent Managing Pts Care (In Minutes): 55
[2021-04-05] MEDS: INSULIN -REGULAR HUMAN 50 UNIT/0.5 ML ML SQ SCH ×4 (06:00→17:55)
[2021-04-05 06:04] LABS: Albumin 1.5 g/dL (3.4-5.0); Bilirubin Total 0.4 mg/dL (0.2-1.0); Magnesium 2.3 mg/dL (1.8-2.4); Potassium 4.8 mmol/L (3.5-5.1); Protein, Total 6.4 g/dL (6.4-8.2)
--- NOTE | 2021-04-05 07:05 | RAD REPORT ---
EXAM DESCRIPTION: RAD - Chest Single View - 04/05/2021 5:34 am CLINICAL HISTORY: respfailure COMPARISON: Chest Single View dated 04/04/2021; Chest Single View dated 04/02/2021; Chest Single View dated 04/01/2021; Chest Single View dated 03/31/2021; Head Brain Wo Cont dated 11/23/2020; Chest Single V iew dated 03/25/2021 FINDINGS: Lines: Endotracheal tube at the aortic arch. Enteric tube below the diaphragm. Lungs: Similar mild to mild widespread bilateral airspace disease. Pleural: No significant pleural effusions or pneumothorax. Cardiac: Loop recorder noted. Heart size unchanged. Bones: No acute fractures. Other: IMPRESSION: No appreciable change in aeration lungs with mild to moderate bilateral airspace disease . Support apparatus in satisfactory position.
[2021-04-05] MEDS: ASPIRIN EC 81 MG TAB PO SCH (08:37)
[2021-04-05] MEDS: BARICITINIB 2 MG TABLET PO SCH (08:37)
[2021-04-05] MEDS: METHYLPREDNISOLONE 40 MG INJ IV SCH ×2 (08:37→20:11)
[2021-04-05] MEDS: THIAMINE HCL 100 MG TABLET PO SCH ×2 (08:37→20:11)
[2021-04-05] MEDS: ATORVASTATIN 20 MG TAB PO SCH (08:37)
[2021-04-05] MEDS: levETIRAcetam 1,000 MG in NA CHLORIDE 0.9% 100 ML IV SCH ×2 (08:37→20:11)
[2021-04-05] MEDS: FOLIC ACID 1 MG in NA CHLORIDE 0.9% 50 ML IV SCH (08:37)
[2021-04-05 12:45] LABS: Arterial Blood Carboxyhemoglob 1.3 % (0-1.5); Blood Gas Oxyhemoglobin 86.6 % (94-97); Blood O2 Saturation 88.4 % (92-98.5)
[2021-04-05] MEDS: D5 0.45 NS 1,000 ML IV SCH (14:27)
--- NOTE | 2021-04-05 17:00 | P.PN ---
Subjective Date of Service: 04/05/21 Primary Care Provider: assisted doctor Chief Complaint: Respiratory failure patient on mechanical ventilation Tachpneaimprovd on vent trina on SIMV unresponsive Review of Systems is unable to be obtained Physical Examination - Vital Signs Temperature: 97.6 F Blood Pressure: 120/94 Pulse: 79 Respirations: 34 Pulse Ox (%): 90 - Physical Exam General: Unresponsive Assessment & Plan - Problems (Diagnosis) (1) 2019 novel coronavirus-infected pneumonia (NCIP) Current Visit: Yes Status: Acute Plan: REsp failure Fio50%/unresponsive/ on max therapy/laas reviewed prog poor
--- NOTE | 2021-04-05 20:43 | P.PN ---
Date of Service: 04/05/21 Vital Signs Temp Pulse Resp BP Pulse Ox 97.6 F 82 36 H 113/94 H 89 L 04/05/21 17:00 04/05/21 18:00 04/05/21 18:00 04/05/21 18:00 04/05/21 18:00 Medications Acetaminophen (Acetaminophen 650mg/Rect Supp) 650 mg CO Q6HP PRN PRN Reason: TEMP > 100' F Aspirin (Aspirin Ec 81 Mg Tab) 81 mg PO DAILY [facility] Last Admin: 04/05/21 08:37 Dose: 81 mg Documented by: Atorvastatin Calcium (Atorvastatin 20 Mg Tab) 20 mg PO DAILY [facility] Last Admin: 04/05/21 08:37 Dose: 20 mg Documented by: Dextrose (D50w 25 Gm/50 Ml Syringe) 12.5 gm IV PRN PRN; Protocol PRN Reason: HYPOGLYCEMIA Enteral Nutritional Formula (Nepro 1,000 Ml Bot) 1,000 ml FT CONT [facility] Last Admin: 03/27/21 21:04 Dose: 1,000 ml Documented by: Fentanyl Citrate (Fentanyl Citr 100 Mcg/2 Ml) 25 mcg IV Q4HP PRN PRN Reason: Pain scale 8-10 (Severe) Last Admin: 04/03/21 23:50 Dose: 25 mcg Documented by: Glucagon (Glucagon 1 Mg/Vial) 1 mg IM 1X PRN; Protocol PRN Reason: HYPOGLYCEMIA Haloperidol Lactate (Haloperidol Lact 5 Mg/Ml Inj) 2 mg IV Q4HP PRN PRN Reason: AGITATION Last Admin: 04/04/21 04:05 Dose: 2 mg Documented by: Norepinephrine Bitartrate 4 mg (/ Dextrose) 254 mls @ 0 mls/hr IV PRN PRN; Protocol PRN Reason: Hemodynamic Parameters Last Admin: 03/24/21 02:50 Dose: 254 mls Documented by: Levetiracetam 1,000 mg/ Sodium (Chloride) 110 mls @ 440 mls/hr IV BID [facility] Last Admin: 04/05/21 20:11 Dose: 110 mls Documented by: Folic Acid 1 mg/ Sodium (Chloride) 50.2 mls @ 200.8 mls/hr IV DAILY [facility] Last Admin: 04/05/21 08:37 Dose: 50.2 mls Documented by: Propofol (Diprivan) 500 mg in 50 mls @ 0 mls/hr IV PRN PRN; Protocol PRN Reason: SEDATION Last Admin: 04/05/21 20:10 Dose: 50 mls Documented by: Dextrose/Sodium Chloride (Dextrose 5% O.45% Saline) 1,000 mls @ 50 mls/hr IV .Q20H [facility] Last Admin: 04/05/21 14:27 Dose: 1,000 mls Documented by: Insulin Human Regular (Insulin -Regular Human 50 Unit/0.5 Ml Ml) 0 unit SQ Q6H [facility]; Protocol Last Admin: 04/05/21 17:55 Dose: Not Given Documented by: Lorazepam (Lorazepam 2 Mg/Ml Vial) 2 mg IV Q2HP PRN PRN Reason: SEDATION Last Admin: 04/04/21 04:00 Dose: 2 mg Documented by: Methylprednisolone Sodium Succinate (Methylprednisolone 40 Mg Inj) 40 mg IV BID [facility] Last Admin: 04/05/21 20:11 Dose: 40 mg Documented by: Midazolam HCl (Midazolam Hcl 2 Mg/2 Ml Inj) 2 mg IV Q2HP PRN PRN Reason: SEDATION Last Admin: 04/04/21 04:04 Dose: 2 mg Documented by: Ondansetron HCl (Ondansetron 4 Mg/2 Ml Vial) 4 mg IV Q6HP PRN PRN Reason: NAUSEA / VOMITING Sodium Chloride (Flush Normal Saline 10 Ml) 10 ml IV BID [facility] Last Admin: 04/05/21 20:11 Dose: 10 ml Documented by: Thiamine HCl (Thiamine Hcl 100 Mg Tablet) 200 mg PO BID [facility] Last Admin: 04/05/21 20:11 Dose: 200 mg Documented by: Microbiology Results 03/23/21 19:15 Blood - Blood Aerobic Blood Culture - Final No growth in 5 days. 03/23/21 19:15 Blood - Blood Anaerobic Blood Culture - Final No growth in 5 days. 03/23/21 19:00 Blood - Blood Aerobic Blood Culture - Final No growth in 5 days. 03/23/21 19:00 Blood - Blood Anaerobic Blood Culture - Final No growth in 5 days. Assessment/ Plan: Nephrology Progress Note Intubated several days ago. Limited IH/ ROS due to AMS. No acute events overnight Vitals, medications blood work and imaging reviewed in the chart General: No distress HEENT: Atraumatic Neck: Supple Respiratory: CTA/ Intubated Cardiovascular: No edema, Regular rate/rhythm Gastrointestinal: Soft and benign, Non-distended Musculoskeletal: No clubbing, No contractures Integumentary: No rashes, No cyanosis Neurological: No speech External genitalia: No edema Greater than 30min patient care. Blood work reviewed in the chart. Imagings Data: EXAM DESCRIPTION: RAD - Chest Single View - 03/23/2021 6:49 pm CLINICAL HISTORY: COUGH Chest pain. COMPARISON: Chest Single View dated 11/23/2020; Chest Single View dated 01/07/2019; Chest Single View dated 08/29/2018; Chest Single View dated 04/05/2017 FINDINGS: Portable technique limits examination quality. Mild to moderate bilateral pulmonary opacities are present, which probably represent pulmonary infection/viral infection. The heart is upper limit of normal in size. No displaced fractures. EXAM DESCRIPTION: CT of the head without contrast CLINICAL HISTORY: CONFUSED COMPARISON: Report from 11/23/2020 TECHNIQUE: Axial CT of the head obtained from the skull apex to the skull base without contrast. This exam was performed according to our departmental dose- optimization program, which includes automated exposure control, adjustment of the mA and/or kV according to patient size and/or use of iterative reconstruction technique. FINDINGS: No acute intracranial hemorrhage identified. No mass, mass effect, shift of the midline, abnormal extra-axial fluid collection or CT evidence of acute ischemic change identified. The ventricular system and sulcal spaces are mildly enlarged compatible with mild cerebral atrophy. Scattered areas of hypodensity throughout the supratentorial white matter are nonspecific and may be related to chronic small vessel ischemic change. Bifrontal and left temporoparietal encephalomalacia compatible with remote infarctions. Bilateral basal ganglia lacunar type infarctions. Mild mucosal thickening of the right maxillary sinus. Mastoid air cells are well aerated. No skull fracture identified. Visualized orbits and globes are unremarkable. Atherosclerotic calcification of the intracranial internal carotid arteries. IMPRESSION: 1. No acute intracranial abnormality by CT criteria. LEFT VENTRICULAR WALL MOTION: MODERATE GLOBAL HYPOKINESIS. DOPPLER/COLOR FLOW: COMMENTS: MODERATE GLOBAL HYPOKINESIS. LEFT VENTRICULAR EJECTION FRACTION 40%. AORTIC SCLEROSIS WITH NO STENOSIS. NO EFFUSION. Conclusions/Impression: VITALY in the setting of sepsis/ hypotension CKD III with proteinuria -No NSAIDs Hypernatremia -Gentle D5W Hypocalcemia -Replete prn Septic Shock/ Hypotension -Continue gentle IVF -Norepi prn -IV Albumin prn Rhabdomyolysis Systolic CHF, chronic -Low sodium diet -Daily weight Hyperglycemia secondary steroids -RISS Severe malnutrition -Encourage nutrition -Continue protein supplementation COVID-19 PNA Acute hypoxic respiratory failure -Ventilatory support as ordered -Continue Solumedrol -Continue Rocephin -Continue Baricitinib
[2021-04-06] MEDS: propofoL 500 MG/50 ML ML IV PRN ×7 (00:20→23:40)
[2021-04-06] MEDS: MIDAZOLAM HCL 2 MG/2 ML INJ IV PRN ×2 (00:21→23:40)
[2021-04-06 05:00] LABS: Basophils % 0.5 % (0-1.3); Hematocrit 44.1 % (39.6-49.0); Lymphocytes % 4.6 % (15.3-44.8); MPV 9.6 fL (7.6-11.3)
[2021-04-06 05:44] LABS: Bilirubin Total 0.4 mg/dL (0.2-1.0); Protein, Total 6.9 g/dL (6.4-8.2)
[2021-04-06 05:45] LABS: Albumin 1.7 g/dL (3.4-5.0); C-Reactive Protein 94.2 mg/L (<3.00); Ferritin 1095.5 ng/mL (26-388); Magnesium 2.3 mg/dL (1.8-2.4)
--- NOTE | 2021-04-06 05:47 | P.PN ---
Subjective Date of Service: 04/06/21 Primary Care Provider: [facility] doctor Chief Complaint: Respiratory failure patient on mechanical ventilation Subjective: Other (Unchanged. Currently on ventilator at 60%) Physical Examination - Vital Signs Temperature: 97.2 F Blood Pressure: 128/94 Pulse: 81 Respirations: 43 Pulse Ox (%): 93 Assessment & Plan Discharge Plan: Skilled Nursing Plan to discharge in: Greater than 2 days Physician Review Additional Text: COVID: Positive CXR: COMPARISON: Chest Single View dated 11/23/2020; Chest Single View dated 01/07/2019; Chest Single View dated 08/29/2018; Chest Single View dated 04/05/2017 FINDINGS: Portable technique limits examination quality. Mild to moderate bilateral pulmonary opacities are present, which probably represent pulmonary infection/viral infection. The heart is upper limit of normal in size. No displaced fractures. CT Head: COMPARISON: Report from 11/23/2020 TECHNIQUE: Axial CT of the head obtained from the skull apex to the skull base without contrast. This exam was performed according to our departmental dose- optimization program, which includes automated exposure control, adjustment of the mA and/or kV according to patient size and/or use of iterative reconstruction technique. FINDINGS: No acute intracranial hemorrhage identified. No mass, mass effect, shift of the midline, abnormal extra-axial fluid collection or CT evidence of acute ischemic change identified. The ventricular system and sulcal spaces are mildly enlarged compatible with mild cerebral atrophy. Scattered areas of hypodensity throughout the supratentorial white matter are nonspecific and may be related to chronic small vessel ischemic change. Bifrontal and left temporoparietal encephalomalacia compatible with remote infarctions. Bilateral basal ganglia lacunar type infarctions. Mild mucosal thickening of the right maxillary sinus. Mastoid air cells are well aerated. No skull fracture identified. Visualized orbits and globes are unremarkable. Atherosclerotic calcification of the intracranial internal carotid arteries. IMPRESSION: 1. No acute intracranial abnormality by CT criteria. ECHO: MEASUREMENTS (cm) DIASTOLIC (NORMALS) SYSTOLIC (NORMALS) IVSd 1.1 (0.6-1.2) LA Diam 2.8 (1.9-4.0) LVEF 36% LVIDd 5.9 (3.5-5.7) LVIDs 4.8 (2.0-3.5) %FS 18% LVPWd 1.1 (0.6-1.2) Ao Diam 2.5 (2.0-3.7) DIMENSIONAL ASSESSMENT: RIGHT ATRIUM: NORMAL LEFT ATRIUM: NORMAL RIGHT VENTRICLE: NORMAL LEFT VENTRICLE: NORMAL TRICUSPID VALVE: NORMAL MITRAL VALVE: NORMAL PULMONIC VALVE: NORMAL AORTIC VALVE: NORMAL PERICARDIAL EFFUSION: NONE AORTIC ROOT: NORMAL LEFT VENTRICULAR WALL MOTION: MODERATE GLOBAL HYPOKINESIS. DOPPLER/COLOR FLOW: COMMENTS: MODERATE GLOBAL HYPOKINESIS. LEFT VENTRICULAR EJECTION FRACTION 40%. AORTIC SCLEROSIS WITH NO STENOSIS. NO EFFUSION. Follow up CXR 04.06.2021: COMPARISON: April 05 TECHNIQUE: AP portable chest image was obtained 04/06/2021 5:35 am . FINDINGS: Patient remains significantly rotated. ET tube tip is mid aortic arch 4 cm above the jose l. NG tube tip is just below the diaphragm near the GE junction. Side hole of the tubing is in the distal esophagus. Positioning is stable. Interstitial and patchy airspace opacities are present similar to comparison. Findings are slightly worse in the left base. Cardiomediastinal silhouette is stable. No measurable pleural effusion and no pneumothorax. No acute bony abnormality seen. No acute aortic findings suspected. IMPRESSION: No new or progressive lung parenchymal finding. Tubes and lines are stable in positioning, as detailed. KUB: COMPARISON: Abdomen 1 View (KUB) dated 03/25/2021 FINDINGS: Tip of the NG tube is at the GE junction, not yet within the lumen of the stomach. Side port is in the distal esophagus. No acute bowel finding on limited evaluation. IMPRESSION: NG tube tip is at the GE junction, not yet within the lumen of the stomach. NG tube needs to be advanced at least 6 cm for adequate gastric intraluminal positioning. Physical Exam: General: Demented. Patient with increased sedation HEENT: Neck supple Respiratory: Remains on the ventilator at 60 % FiO2 Cardiovascular: No edema, Normal S1 S2 Capillary refill: <2 Seconds Gastrointestinal: Normal bowel sounds, Soft and benign. Dobhoff in place Musculoskeletal: No contractures, No erythema, No tenderness Integumentary: No tenderness/swelling, No erythema Neurological: Patient more alert. Dementia noted Impression: Acute hypoxic respiratory failure secondary to COVID-19 pneumonia complicated with UTI Hypotension Acute renal failure superimposed on CKD3 Elevated troponin likely ischemic demand History of CVA/dementia with CT scan showing Bifrontal and left temporoparietal encephalomalacia compatible with remote infarctions and Bilateral basal ganglia lacunar type infarctions Hypernatremia Seizure disorder Plan: Acute hypoxic respiratory failure secondary to COVID-19 pneumonia complicated with UTI: Patient remained stable on ventilator currently on 60%. NG tube needs to be adjusted. Will discuss with nurse and repeat KUB. Feedings were held yesterday due to some regurgitation. Continue with IV steroids and baricitinib. Continue to wean off to maintain sats above 90%. Patient remains full code. Patient remains on Diflucan and Rocephin.. Will monitor white count. Continue with plan of care. Hypotension: Improved overall. Renal function stable. Acute renal failure superimposed on CKD3: Overall improved. Continue with neph rology recommendations Elevated troponin likely ischemic demand: Likely demand ischemia, trend troponins, monitor on telemetry. Echocardiogram shows global hypokinesis. Ejecti on fraction 40%. No cardiac intervention needed. History of CVA/dementia with CT scan showing Bifrontal and left temporoparietal encephalomalacia compatible with remote infarctions and Bilateral basal ganglia lacunar type infarctions: Patient with underlying dementia. Prior CVAs noted. Continue with above plan. NG tube to be advanced at least another 6 cm for adequate positioning. Repeat KUB thereafter to maintain position. Once stable will restart feeds. Hypernatremia: Overall improved. Seizure disorder: Continue with medication DVT PPX: Lovenox Code status: Full Discharge Plan: Daughter wants patient to go to a different halfway. Time Spent Managing Pts Care (In Minutes): 55
[2021-04-06] MEDS: INSULIN -REGULAR HUMAN 50 UNIT/0.5 ML ML SQ SCH ×5 (06:00→23:51)
[2021-04-06] MEDS: D5 0.45 NS 1,000 ML IV SCH (06:16)
[2021-04-06 07:37] LABS: Blood Morphology Comment NOT SEEN (NOT SEEN)
[2021-04-06 07:38] LABS: Platelet Estimate ADEQ
--- NOTE | 2021-04-06 07:45 | RAD REPORT ---
EXAM DESCRIPTION: RAD - Chest Single View - 04/06/2021 5:35 am CLINICAL HISTORY: respfailure COMPARISON: April 05 TECHNIQUE: AP portable chest image was obtained 04/06/2021 5:35 am . FINDINGS: Patient remains significantly rotated. ET tube tip is mid aortic arch 4 cm above the isaías a. NG tube tip is just below the diaphragm near the GE junction. Side hole of the tubing is in the di stal esophagus. Positioning is stable. Interstitial and patchy airspace opacities are present similar to comparison. Findings are slightly w orse in the left base. Cardiomediastinal silhouette is stable. No measurable pleural effusion and no pneumothorax. No acute bony abnormality seen. No acute aortic findings suspected. IMPRESSION: No new or progressive lung parenchymal finding. Tubes and lines are stable in positioning, as detailed.
[2021-04-06] MEDS: METHYLPREDNISOLONE 40 MG INJ IV SCH ×2 (08:35→21:14)
[2021-04-06] MEDS: THIAMINE HCL 100 MG TABLET PO SCH ×2 (08:36→21:14)
[2021-04-06] MEDS: BARICITINIB 2 MG TABLET PO SCH (08:36)
[2021-04-06] MEDS: ASPIRIN EC 81 MG TAB PO SCH (08:36)
[2021-04-06] MEDS: ATORVASTATIN 20 MG TAB PO SCH (08:36)
[2021-04-06] MEDS: FLUCONAZOLE 100 MG TAB PO SCH (08:36)
--- NOTE | 2021-04-06 08:45 | RAD REPORT ---
EXAM DESCRIPTION: RAD - Abdomen 1 View (KUB) - 04/06/2021 8:39 am CLINICAL HISTORY: ngt placement COMPARISON: Abdomen 1 View (KUB) dated 03/25/2021 FINDINGS: Tip of the NG tube is at the GE junction, not yet within the lumen of the stomach. Side po rt is in the distal esophagus. No acute bowel finding on limited evaluation. IMPRESSION: NG tube tip is at the GE junction, not yet within the lumen of the stomach. NG tube needs to be advanced at least 6 cm for adequate gastric intraluminal positioning.
[2021-04-06] MEDS: levETIRAcetam 1,000 MG in NA CHLORIDE 0.9% 100 ML IV SCH ×2 (08:54→21:00)
[2021-04-06] MEDS: FOLIC ACID 1 MG in NA CHLORIDE 0.9% 50 ML IV SCH (08:54)
[2021-04-06] MEDS ORDERED: CEFTRIAXONE 1 GM/NS 50 ML 1 GM/50 ML BAG IV SCH (09:00)
[2021-04-06] MEDS: CEFTRIAXONE/SWI 1gm 1 GM/10 ML SYR IV SCH (09:37)
--- NOTE | 2021-04-06 13:10 | RAD REPORT ---
EXAM DESCRIPTION: RAD - Abdomen 1 View (KUB) - 04/06/2021 12:08 pm CLINICAL HISTORY: Dobhoff placement COMPARISON: Abdomen 1 View (KUB) dated 04/06/2021; Abdomen 1 View (KUB) dated 03/25/2021 FINDINGS: Dobhoff feeding tube has been placed. There is respiratory motion. The tube is curled in t he stomach. Tip is near the GE junction. No abnormal kink or bend in the tubing. Bowel gas pattern is nonspecific. No free air or pneumatosis. IMPRESSION: Dobhoff feeding tube is curled in the stomach. The tip is in proximity to the GE junctio n. Retracting the feeding tube approximately 10 cm should unable the tip to remain within the lumen of t he stomach and avoid proximity to the GE junction and possible reflux.
[2021-04-06] MEDS: LORazepam 2 MG/ML VIAL IV PRN (17:04)
[2021-04-06] MEDS: NEPRO 1,000 ML BOT FT SCH (18:02)
[2021-04-06] MEDS: D50W 25 GM/50 ML SYRINGE IV PRN ×2 (18:02→21:16)
--- NOTE | 2021-04-06 19:19 | P.PN ---
Date of Service: 04/06/21 Vital Signs Temp Pulse Resp BP Pulse Ox 97.4 F 88 29 H 135/95 H 93 04/06/21 16:00 04/06/21 18:00 04/06/21 18:00 04/06/21 18:00 04/06/21 10:30 Medications Acetaminophen (Acetaminophen 650mg/Rect Supp) 650 mg UT Q6HP PRN PRN Reason: TEMP > 100' F Aspirin (Aspirin Ec 81 Mg Tab) 81 mg PO DAILY [facility] Last Admin: 04/06/21 08:36 Dose: 81 mg Documented by: Atorvastatin Calcium (Atorvastatin 20 Mg Tab) 20 mg PO DAILY [facility] Last Admin: 04/06/21 08:36 Dose: 20 mg Documented by: Dextrose (D50w 25 Gm/50 Ml Syringe) 12.5 gm IV PRN PRN; Protocol PRN Reason: HYPOGLYCEMIA Last Admin: 04/06/21 18:02 Dose: 12.5 gm Documented by: Enteral Nutritional Formula (Nepro 1,000 Ml Bot) 1,000 ml FT CONT [facility] Last Admin: 04/06/21 18:02 Dose: 1,000 ml Documented by: Fentanyl Citrate (Fentanyl Citr 100 Mcg/2 Ml) 25 mcg IV Q4HP PRN PRN Reason: Pain scale 8-10 (Severe) Last Admin: 04/03/21 23:50 Dose: 25 mcg Documented by: Fluconazole (Fluconazole 100 Mg Tab) 200 mg PO DAILY [facility]; Protocol Last Admin: 04/06/21 08:36 Dose: 200 mg Documented by: Glucagon (Glucagon 1 Mg/Vial) 1 mg IM 1X PRN; Protocol PRN Reason: HYPOGLYCEMIA Haloperidol Lactate (Haloperidol Lact 5 Mg/Ml Inj) 2 mg IV Q4HP PRN PRN Reason: AGITATION Last Admin: 04/04/21 04:05 Dose: 2 mg Documented by: Norepinephrine Bitartrate 4 mg (/ Dextrose) 254 mls @ 0 mls/hr IV PRN PRN; Protocol PRN Reason: Hemodynamic Parameters Last Admin: 03/24/21 02:50 Dose: 254 mls Documented by: Levetiracetam 1,000 mg/ Sodium (Chloride) 110 mls @ 440 mls/hr IV BID [facility] Last Admin: 04/06/21 08:54 Dose: 110 mls Documented by: Folic Acid 1 mg/ Sodium (Chloride) 50.2 mls @ 200.8 mls/hr IV DAILY [facility] Last Admin: 04/06/21 08:54 Dose: 50.2 mls Documented by: Propofol (Diprivan) 500 mg in 50 mls @ 0 mls/hr IV PRN PRN; Protocol PRN Reason: SEDATION Last Admin: 04/06/21 17:04 Dose: 50 mls Documented by: Ceftriaxone Sodium/Sodium Chloride (Rocephin 1 Gm/10 Ml Swi Ivp) 1 gm in 10 mls @ 600 mls/min IV DAILY [facility] Last Admin: 04/06/21 09:37 Dose: 10 mls Documented by: Insulin Human Regular (Insulin -Regular Human 50 Unit/0.5 Ml Ml) 0 unit SQ Q6H [facility]; Protocol Last Admin: 04/06/21 17:52 Dose: Not Given Documented by: Lorazepam (Lorazepam 2 Mg/Ml Vial) 2 mg IV Q2HP PRN PRN Reason: SEDATION Last Admin: 04/06/21 17:04 Dose: 2 mg Documented by: Methylprednisolone Sodium Succinate (Methylprednisolone 40 Mg Inj) 40 mg IV BID [facility] Last Admin: 04/06/21 08:35 Dose: 40 mg Documented by: Midazolam HCl (Midazolam Hcl 2 Mg/2 Ml Inj) 2 mg IV Q2HP PRN PRN Reason: SEDATION Last Admin: 04/06/21 00:21 Dose: 2 mg Documented by: Ondansetron HCl (Ondansetron 4 Mg/2 Ml Vial) 4 mg IV Q6HP PRN PRN Reason: NAUSEA / VOMITING Sodium Chloride (Flush Normal Saline 10 Ml) 10 ml IV BID [facility] Last Admin: 04/06/21 08:36 Dose: 10 ml Documented by: Thiamine HCl (Thiamine Hcl 100 Mg Tablet) 200 mg PO BID [facility] Last Admin: 04/06/21 08:36 Dose: 200 mg Documented by: Microbiology Results 03/23/21 19:15 Blood - Blood Aerobic Blood Culture - Final No growth in 5 days. 03/23/21 19:15 Blood - Blood Anaerobic Blood Culture - Final No growth in 5 days. 03/23/21 19:00 Blood - Blood Aerobic Blood Culture - Final No growth in 5 days. 03/23/21 19:00 Blood - Blood Anaerobic Blood Culture - Final No growth in 5 days. Assessment/ Plan: Nephrology Progress Note Intubated several days ago. Limited IH/ ROS due to AMS. No acute events overnight Vitals, medications blood work and imaging reviewed in the chart General: No distress HEENT: Atraumatic Neck: Supple Respiratory: CTA/ Intubated Cardiovascular: No edema, Regular rate/rhythm Gastrointestinal: Soft and benign, Non-distended Musculoskeletal: No clubbing, No contractures Integumentary: No rashes, No cyanosis Neurological: No speech External genitalia: No edema Greater than 30min patient care. Blood work reviewed in the chart. Imagings Data: EXAM DESCRIPTION: RAD - Chest Single View - 03/23/2021 6:49 pm CLINICAL HISTORY: COUGH Chest pain. COMPARISON: Chest Single View dated 11/23/2020; Chest Single View dated 01/07/2019; Chest Single View dated 08/29/2018; Chest Single View dated 04/05/2017 FINDINGS: Portable technique limits examination quality. Mild to moderate bilateral pulmonary opacities are present, which probably represent pulmonary infection/viral infection. The heart is upper limit of normal in size. No displaced fractures. EXAM DESCRIPTION: CT of the head without contrast CLINICAL HISTORY: CONFUSED COMPARISON: Report from 11/23/2020 TECHNIQUE: Axial CT of the head obtained from the skull apex to the skull base without contrast. This exam was performed according to our departmental dose- optimization program, which includes automated exposure control, adjustment of the mA and/or kV according to patient size and/or use of iterative reconstruction technique. FINDINGS: No acute intracranial hemorrhage identified. No mass, mass effect, shift of the midline, abnormal extra-axial fluid collection or CT evidence of acute ischemic change identified. The ventricular system and sulcal spaces are mildly enlarged compatible with mild cerebral atrophy. Scattered areas of hypodensity throughout the supratentorial white matter are nonspecific and may be related to chronic small vessel ischemic change. Bifrontal and left temporoparietal encephalomalacia compatible with remote infarctions. Bilateral basal ganglia lacunar type infarctions. Mild mucosal thickening of the right maxillary sinus. Mastoid air cells are well aerated. No skull fracture identified. Visualized orbits and globes are unremarkable. Atherosclerotic calcification of the intracranial internal carotid arteries. IMPRESSION: 1. No acute intracranial abnormality by CT criteria. LEFT VENTRICULAR WALL MOTION: MODERATE GLOBAL HYPOKINESIS. DOPPLER/COLOR FLOW: COMMENTS: MODERATE GLOBAL HYPOKINESIS. LEFT VENTRICULAR EJECTION FRACTION 40%. AORTIC SCLEROSIS WITH NO STENOSIS. NO EFFUSION. Conclusions/Impression: VITALY in the setting of sepsis/ hypotension CKD III with proteinuria -No NSAIDs Hypernatremia -Monitor sodium Hypocalcemia -Replete prn Septic Shock/ Hypotension -Continue gentle IVF -Norepi prn -IV Albumin prn Rhabdomyolysis Systolic CHF, chronic -Low sodium diet -Daily weight Hyperglycemia secondary steroids -RISS Severe malnutrition -Encourage nutrition -Continue protein supplementation COVID-19 PNA Acute hypoxic respiratory failure -Ventilatory support as ordered -Continue Solumedrol -Continue Rocephin -Continue Baricitinib
[2021-04-06] MEDS ORDERED: D5 0.45 NS 1,000 ML IV SCH (21:00)
--- NOTE | 2021-04-07 05:56 | P.PN ---
Subjective Date of Service: 04/07/21 Primary Care Provider: long term doctor Chief Complaint: Respiratory failure patient on mechanical ventilation Subjective: Other (No changes noted. NG tube now in better position and tolerating feeds. Remains on ventilator at 70%) Physical Examination - Vital Signs Temperature: 97.2 F Blood Pressure: 104/81 Pulse: 88 Respirations: 31 Pulse Ox (%): 99 Assessment & Plan Discharge Plan: LTAC Plan to discharge in: Greater than 2 days Physician Review Additional Text: COVID: Positive CXR: COMPARISON: Chest Single View dated 11/23/2020; Chest Single View dated 01/07/2019; Chest Single View dated 08/29/2018; Chest Single View dated 04/05/2017 FINDINGS: Portable technique limits examination quality. Mild to moderate bilateral pulmonary opacities are present, which probably represent pulmonary infection/viral infection. The heart is upper limit of normal in size. No displaced fractures. CT Head: COMPARISON: Report from 11/23/2020 TECHNIQUE: Axial CT of the head obtained from the skull apex to the skull base without contrast. This exam was performed according to our departmental dose- optimization program, which includes automated exposure control, adjustment of the mA and/or kV according to patient size and/or use of iterative reconstruction technique. FINDINGS: No acute intracranial hemorrhage identified. No mass, mass effect, shift of the midline, abnormal extra-axial fluid collection or CT evidence of acute ischemic change identified. The ventricular system and sulcal spaces are mildly enlarged compatible with mild cerebral atrophy. Scattered areas of hypodensity throughout the supratentorial white matter are nonspecific and may be related to chronic small vessel ischemic change. Bifrontal and left temporoparietal encephalomalacia compatible with remote infarctions. Bilateral basal ganglia lacunar type infarctions. Mild mucosal thickening of the right maxillary sinus. Mastoid air cells are well aerated. No skull fracture identified. Visualized orbits and globes are unremarkable. Atherosclerotic calcification of the intracranial internal carotid arteries. IMPRESSION: 1. No acute intracranial abnormality by CT criteria. ECHO: MEASUREMENTS (cm) DIASTOLIC (NORMALS) SYSTOLIC (NORMALS) IVSd 1.1 (0.6-1.2) LA Diam 2.8 (1.9-4.0) LVEF 36% LVIDd 5.9 (3.5-5.7) LVIDs 4.8 (2.0-3.5) %FS 18% LVPWd 1.1 (0.6-1.2) Ao Diam 2.5 (2.0-3.7) DIMENSIONAL ASSESSMENT: RIGHT ATRIUM: NORMAL LEFT ATRIUM: NORMAL RIGHT VENTRICLE: NORMAL LEFT VENTRICLE: NORMAL TRICUSPID VALVE: NORMAL MITRAL VALVE: NORMAL PULMONIC VALVE: NORMAL AORTIC VALVE: NORMAL PERICARDIAL EFFUSION: NONE AORTIC ROOT: NORMAL LEFT VENTRICULAR WALL MOTION: MODERATE GLOBAL HYPOKINESIS. DOPPLER/COLOR FLOW: COMMENTS: MODERATE GLOBAL HYPOKINESIS. LEFT VENTRICULAR EJECTION FRACTION 40%. AORTIC SCLEROSIS WITH NO STENOSIS. NO EFFUSION. Follow up CXR 04.07.2021: COMPARISON: Portable April 06 TECHNIQUE: AP portable chest image was obtained 04/07/2021 5:33 am . FINDINGS: Endotracheal tube tip is mid aortic arch 4 cm above the jose l. This is adequate positioning and stable. Weighted feeding tube is coiled in the stomach. Interstitial and minimal alveolar opacity pattern has not changed. Cardiomediastinal silhouette is stable. No pneumothorax or enlarging pleural effusion. No acute bony abnormality seen. No acute aortic findings suspected. IMPRESSION: Stable portable chest examination as detailed. Physical Exam: General: Demented. Patient with increased sedation HEENT: Neck supple Respiratory: Remains on the ventilator at 70 % FiO2 Cardiovascular: No edema, Normal S1 S2 Capillary refill: <2 Seconds Gastrointestinal: Normal bowel sounds, Soft and benign. Dobhoff in place Musculoskeletal: No contractures, No erythema, No tenderness Integumentary: No tenderness/swelling, No erythema Neurological: Patient with history of dementia Impression: Acute hypoxic respiratory failure secondary to COVID-19 pneumonia complicated with leukocytosis Hypotension Acute renal failure superimposed on CKD3 Elevated troponin likely ischemic demand History of CVA/dementia with CT scan showing Bifrontal and left temporoparietal encephalomalacia compatible with remote infarctions and Bilateral basal ganglia lacunar type infarctions Hypernatremia Seizure disorder Hyperlipidemia Plan: Acute hypoxic respiratory failure secondary to COVID-19 pneumonia complicated with leukocytosis: Patient remains on ventilator at 70% FiO2. NG tube was replaced yesterday with improvement. Patient tolerating current feeds at this time. CRP and ferritin remain stable. White count improved. Patient remains on current IV steroids and baricitinib. Continue to wean off oxygen. Continue with pulmonology recommendations. Remains on Rocephin and Diflucan. Patient remains full code at this time. Patient vladimir on IV fluids and NG tube feeds. Will discuss with daughter about the possibility of long-term acute care facility placement. Hypotension: Improved overall. Renal function stable. Levophed as needed Acute renal failure superimposed on CKD3: Overall improved. Continue with nephrology recommendations Elevated troponin likely ischemic demand: Likely demand ischemia, trend troponins, monitor on telemetry. Echocardiogram shows global hypokinesis. Ejection fraction 40%. No cardiac intervention needed. History of CVA/dementia with CT scan showing Bifrontal and left temporoparietal encephalomalacia compatible with remote infarctions and Bilateral basal ganglia lacunar type infarctions: Patient with underlying dementia. Prior CVAs noted. Continue with above plan. NG tube to be advanced at least another 6 cm for a dequate positioning. Repeat KUB thereafter to maintain position. Once stable will restart feeds. Hypernatremia: Resolved. Currently on IV fluids. Nephrology continues to adjust. Seizure disorder: Continue with medicationKeppra Hyperlipidemia: Continue with Lipitor DVT PPX: Lovenox Code status: Full Discharge Plan: Spoke with daughter the other day. Patient remains full code. Need to discuss about the possibility of LTAC before patient can return to a different intermediate as requested. Left message with daughter. Marisela [phone] Time Spent Managing Pts Care (In Minutes): 55
[2021-04-07 06:00] LABS: Absolute Lymphocytes (CBC) 0.8 K/uL (0.7-4.9); Basophils % 0.2 % (0-1.3); Hematocrit 42.6 % (39.6-49.0); Lymphocytes % 4.9 % (15.3-44.8); MPV 9.4 fL (7.6-11.3); RBC Red Blood Cell Count 4.42 M/uL (4.33-5.43)
[2021-04-07] MEDS: INSULIN -REGULAR HUMAN 50 UNIT/0.5 ML ML SQ SCH ×3 (06:00→17:47)
[2021-04-07] MEDS: D50W 25 GM/50 ML SYRINGE IV PRN (06:05)
[2021-04-07 06:20] LABS: ALT/SGPT 43 U/L (12-78); AST/SGOT 32 U/L (15-37); Albumin 1.7 g/dL (3.4-5.0); Alkaline Phosphatase 53 U/L (45-117); BUN Blood Urea Nitrogen 38 mg/dL (7-18); Bicarbonate 25 mmol/L (21-32); Bilirubin Total 0.3 mg/dL (0.2-1.0); Ferritin 1191.7 ng/mL (26-388); Glucose Level 134 mg/dL (74-106); Magnesium 2.3 mg/dL (1.8-2.4); Potassium 4.9 mmol/L (3.5-5.1); Protein, Total 6.7 g/dL (6.4-8.2); Sodium Level 141 mmol/L (136-145)
[2021-04-07] MEDS: propofoL 500 MG/50 ML ML IV PRN ×7 (06:34→23:40)
--- NOTE | 2021-04-07 07:19 | RAD REPORT ---
EXAM DESCRIPTION: RAD - Chest Single View - 04/07/2021 5:33 am CLINICAL HISTORY: respfailure COMPARISON: Portable April 06 TECHNIQUE: AP portable chest image was obtained 04/07/2021 5:33 am . FINDINGS: Endotracheal tube tip is mid aortic arch 4 cm above the jose l. This is adequate positioni ng and stable. Weighted feeding tube is coiled in the stomach. Interstitial and minimal alveolar opacity pattern has not changed. Cardiomediastinal silhouette is st able. No pneumothorax or enlarging pleural effusion. No acute bony abnormality seen. No acute aortic findings suspected. IMPRESSION: Stable portable chest examination as detailed.
[2021-04-07] MEDS: METHYLPREDNISOLONE 40 MG INJ IV SCH ×2 (08:22→20:30)
[2021-04-07] MEDS: ATORVASTATIN 20 MG TAB PO SCH (08:22)
[2021-04-07] MEDS: THIAMINE HCL 100 MG TABLET PO SCH ×2 (08:22→20:32)
[2021-04-07] MEDS: FLUCONAZOLE 100 MG TAB PO SCH (08:22)
[2021-04-07] MEDS: levETIRAcetam 1,000 MG in NA CHLORIDE 0.9% 100 ML IV SCH ×2 (08:23→20:33)
[2021-04-07] MEDS: ASPIRIN EC 81 MG TAB PO SCH (08:23)
[2021-04-07] MEDS: FOLIC ACID 1 MG in NA CHLORIDE 0.9% 50 ML IV SCH (08:23)
[2021-04-07] MEDS: BARICITINIB 2 MG TABLET PO SCH (08:24)
[2021-04-07] MEDS: CEFTRIAXONE/SWI 1gm 1 GM/10 ML SYR IV SCH (09:00)
--- NOTE | 2021-04-07 11:38 | P.PN ---
Subjective Date of Service: 04/07/21 Primary Care Provider: group home doctor Chief Complaint: Respiratory failure patient on mechanical ventilation No change patient unresponsive Review of Systems is unable to be obtained Physical Examination - Vital Signs Temperature: 97.2 F Blood Pressure: 104/81 Pulse: 88 Respirations: 31 Pulse Ox (%): 99 - Physical Exam General: Unresponsive Assessment & Plan - Problems (Diagnosis) (1) 2019 novel coronavirus-infected pneumonia (NCIP) Current Visit: Yes Status: Acute Plan: Respiratory failure unresponsive saturations satisfactory plan to titrate sat to 90% check ABGs chest x-ray to be some improvement endotracheal tube is satisfactory white count declining evaluate for an LTAC
[2021-04-07] MEDS: LORazepam 2 MG/ML VIAL IV PRN (15:44)
[2021-04-07 16:03] LABS: Arterial Blood Carboxyhemoglob 1.2 % (0-1.5); Blood Gas Oxyhemoglobin 86.8 % (94-97); Blood O2 Saturation 88.5 % (92-98.5)
[2021-04-07] MEDS: FENTANYL CITR 100 MCG/2 ML IV PRN (20:30)
--- NOTE | 2021-04-07 20:47 | P.PN ---
Date of Service: 04/07/21 Vital Signs Temp Pulse Resp BP Pulse Ox 98.3 F 97 H 46 H 126/82 91 04/07/21 20:00 04/07/21 20:00 04/07/21 20:00 04/07/21 20:00 04/07/21 20:00 Medications Acetaminophen (Acetaminophen 650mg/Rect Supp) 650 mg [place] Q6HP PRN PRN Reason: TEMP > 100' F Aspirin (Aspirin Ec 81 Mg Tab) 81 mg PO DAILY [facility] Last Admin: 04/07/21 08:23 Dose: Not Given Documented by: Atorvastatin Calcium (Atorvastatin 20 Mg Tab) 20 mg PO DAILY [facility] Last Admin: 04/07/21 08:22 Dose: 20 mg Documented by: Dextrose (D50w 25 Gm/50 Ml Syringe) 12.5 gm IV PRN PRN; Protocol PRN Reason: HYPOGLYCEMIA Last Admin: 04/07/21 06:05 Dose: 12.5 gm Documented by: Enteral Nutritional Formula (Nepro 1,000 Ml Bot) 1,000 ml FT CONT [facility] Last Admin: 04/06/21 18:02 Dose: 1,000 ml Documented by: Fentanyl Citrate (Fentanyl Citr 100 Mcg/2 Ml) 25 mcg IV Q4HP PRN PRN Reason: Pain scale 8-10 (Severe) Last Admin: 04/07/21 20:30 Dose: 25 mcg Documented by: Fluconazole (Fluconazole 100 Mg Tab) 200 mg PO DAILY [facility]; Protocol Last Admin: 04/07/21 08:22 Dose: 200 mg Documented by: Glucagon (Glucagon 1 Mg/Vial) 1 mg IM 1X PRN; Protocol PRN Reason: HYPOGLYCEMIA Haloperidol Lactate (Haloperidol Lact 5 Mg/Ml Inj) 2 mg IV Q4HP PRN PRN Reason: AGITATION Last Admin: 04/04/21 04:05 Dose: 2 mg Documented by: Norepinephrine Bitartrate 4 mg (/ Dextrose) 254 mls @ 0 mls/hr IV PRN PRN; Protocol PRN Reason: Hemodynamic Parameters Last Admin: 03/24/21 02:50 Dose: 254 mls Documented by: Levetiracetam 1,000 mg/ Sodium (Chloride) 110 mls @ 440 mls/hr IV BID [facility] Last Admin: 04/07/21 20:33 Dose: 110 mls Documented by: Propofol (Diprivan) 500 mg in 50 mls @ 0 mls/hr IV PRN PRN; Protocol PRN Reason: SEDATION Last Admin: 04/07/21 20:40 Dose: 50 mls Documented by: Ceftriaxone Sodium/Sodium Chloride (Rocephin 1 Gm/10 Ml Swi Ivp) 1 gm in 10 mls @ 600 mls/min IV DAILY [facility] Last Admin: 04/07/21 09:00 Dose: 10 mls Documented by: Insulin Human Regular (Insulin -Regular Human 50 Unit/0.5 Ml Ml) 0 unit SQ Q6H [facility]; Protocol Last Admin: 04/07/21 17:47 Dose: Not Given Documented by: Lorazepam (Lorazepam 2 Mg/Ml Vial) 2 mg IV Q2HP PRN PRN Reason: SEDATION Last Admin: 04/07/21 15:44 Dose: 2 mg Documented by: Methylprednisolone Sodium Succinate (Methylprednisolone 40 Mg Inj) 40 mg IV BID [facility] Last Admin: 04/07/21 20:30 Dose: 40 mg Documented by: Midazolam HCl (Midazolam Hcl 2 Mg/2 Ml Inj) 2 mg IV Q2HP PRN PRN Reason: SEDATION Last Admin: 04/06/21 23:40 Dose: 2 mg Documented by: Ondansetron HCl (Ondansetron 4 Mg/2 Ml Vial) 4 mg IV Q6HP PRN PRN Reason: NAUSEA / VOMITING Sodium Chloride (Flush Normal Saline 10 Ml) 10 ml IV BID [facility] Last Admin: 04/07/21 20:32 Dose: 10 ml Documented by: Thiamine HCl (Thiamine Hcl 100 Mg Tablet) 200 mg PO BID [facility] Last Admin: 04/07/21 20:32 Dose: 200 mg Documented by: Microbiology Results 03/23/21 19:15 Blood - Blood Aerobic Blood Culture - Final No growth in 5 days. 03/23/21 19:15 Blood - Blood Anaerobic Blood Culture - Final No growth in 5 days. 03/23/21 19:00 Blood - Blood Aerobic Blood Culture - Final No growth in 5 days. 03/23/21 19:00 Blood - Blood Anaerobic Blood Culture - Final No growth in 5 days. Assessment/ Plan: Nephrology Progress Note Limited IH/ ROS due to AMS. Good urine output. Persistent hypoxia. No acute events overnight Vitals, medications blood work and imaging reviewed in the chart General: No distress HEENT: Atraumatic Neck: Supple Respiratory: CTA/ Intubated Cardiovascular: No edema, Regular rate/rhythm Gastrointestinal: Soft and benign, Non-distended Musculoskeletal: No clubbing, No contractures Integumentary: No rashes, No cyanosis Neurological: No speech External genitalia: No edema Greater than 30min patient care. Blood work reviewed in the chart. Imagings Data: EXAM DESCRIPTION: RAD - Chest Single View - 03/23/2021 6:49 pm CLINICAL HISTORY: COUGH Chest pain. COMPARISON: Chest Single View dated 11/23/2020; Chest Single View dated 01/07/2019; Chest Single View dated 08/29/2018; Chest Single View dated 04/05/2017 FINDINGS: Portable technique limits examination quality. Mild to moderate bilateral pulmonary opacities are present, which probably represent pulmonary infection/viral infection. The heart is upper limit of normal in size. No displaced fractures. EXAM DESCRIPTION: CT of the head without contrast CLINICAL HISTORY: CONFUSED COMPARISON: Report from 11/23/2020 TECHNIQUE: Axial CT of the head obtained from the skull apex to the skull base without contrast. This exam was performed according to our departmental dose- optimization program, which includes automated exposure control, adjustment of the mA and/or kV according to patient size and/or use of iterative reconstruction technique. FINDINGS: No acute intracranial hemorrhage identified. No mass, mass effect, shift of the midline, abnormal extra-axial fluid collection or CT evidence of acute ischemic change identified. The ventricular system and sulcal spaces are mildly enlarged compatible with mild cerebral atrophy. Scattered areas of hypodensity throughout the supratentorial white matter are nonspecific and may be related to chronic small vessel ischemic change. Bifrontal and left tempor oparietal encephalomalacia compatible with remote infarctions. Bilateral basal ganglia lacunar type infarctions. Mild mucosal thickening of the right maxillary sinus. Mastoid air cells are well aerated. No skull fracture identified. Visualized orbits and globes are unremarkable. Atherosclerotic calcification of the intracranial internal carotid arteries. IMPRESSION: 1. No acute intracranial abnormality by CT criteria. LEFT VENTRICULAR WALL MOTION: MODERATE GLOBAL HYPOKINESIS. DOPPLER/COLOR FLOW: COMMENTS: MODERATE GLOBAL HYPOKINESIS. LEFT VENTRICULAR EJECTION FRACTION 40%. AORTIC SCLEROSIS WITH NO STENOSIS. NO EFFUSION. Conclusions/Impression: VITALY in the setting of sepsis/ hypotension CKD III with proteinuria -No NSAIDs Hypernatremia -Monitor sodium Hypocalcemia -Replete prn Septic Shock/ Hypotension -Continue gentle IVF -Norepi prn -IV Albumin prn Rhabdomyolysis Systolic CHF, chronic -Low sodium diet -Daily weight Hyperglycemia secondary steroids -RISS Severe malnutrition -Encourage nutrition -Continue protein supplementation COVID-19 PNA Acute hypoxic respiratory failure -Ventilatory support as ordered -Continue Solumedrol -Continue Rocephin -Continue Baricitinib
[2021-04-07] MEDS: NEPRO 1,000 ML BOT FT SCH (22:00)
[2021-04-07] MEDS: MIDAZOLAM HCL 2 MG/2 ML INJ IV PRN (22:45)
[2021-04-08] MEDS: propofoL 500 MG/50 ML ML IV PRN ×12 (01:42→23:28)
[2021-04-08] MEDS: MIDAZOLAM HCL 2 MG/2 ML INJ IV PRN ×2 (03:44→09:25)
[2021-04-08] MEDS: CISATRACURIUM INJECTION 2 MG/ML (10 ML Vial) IV PRN ×2 (04:04→08:04)
[2021-04-08] MEDS ORDERED: CISATRACURIUM INJECTION 2 MG/ML (10 ML Vial) IV ONE (04:24)
[2021-04-08] MEDS: LORazepam 2 MG/ML VIAL IV PRN ×2 (05:00→21:09)
[2021-04-08 05:54] LABS: Absolute Lymphocytes (CBC) 0.7 K/uL (0.7-4.9); Basophils % 0.2 % (0-1.3); Hematocrit 41.2 % (39.6-49.0); Lymphocytes % 4.1 % (15.3-44.8); MPV 9.8 fL (7.6-11.3); RBC Red Blood Cell Count 4.26 M/uL (4.33-5.43)
[2021-04-08 05:55] LABS: Blood O2 Saturation 93.7 % (92-98.5)
[2021-04-08] MEDS: INSULIN -REGULAR HUMAN 50 UNIT/0.5 ML ML SQ SCH ×5 (06:00→23:43)
[2021-04-08 06:28] LABS: Albumin 1.7 g/dL (3.4-5.0); Bilirubin Total 0.3 mg/dL (0.2-1.0); C-Reactive Protein 66.8 mg/L (<3.00); Ferritin 1210.2 ng/mL (26-388); Magnesium 2.2 mg/dL (1.8-2.4); Potassium 5.4 mmol/L (3.5-5.1); Protein, Total 6.5 g/dL (6.4-8.2)
[2021-04-08] MEDS: THIAMINE HCL 100 MG TABLET PO SCH ×2 (08:04→20:00)
[2021-04-08] MEDS: FLUCONAZOLE 100 MG TAB PO SCH (08:04)
[2021-04-08] MEDS: ATORVASTATIN 20 MG TAB PO SCH (08:05)
[2021-04-08] MEDS: CEFTRIAXONE/SWI 1gm 1 GM/10 ML SYR IV SCH (08:05)
[2021-04-08] MEDS: METHYLPREDNISOLONE 40 MG INJ IV SCH ×2 (08:05→20:00)
[2021-04-08] MEDS: ASPIRIN EC 81 MG TAB PO SCH (08:06)
[2021-04-08] MEDS: levETIRAcetam 1,000 MG in NA CHLORIDE 0.9% 100 ML IV SCH ×2 (08:58→20:00)
[2021-04-08] MEDS ORDERED: SOD POLYSTYREN SUL 15 GM/60 ML UCUP PO ONE ×2 (09:35→22:09)
--- NOTE | 2021-04-08 10:49 | RAD REPORT ---
EXAM DESCRIPTION: RAD - Chest Single View - 04/08/2021 10:03 am CLINICAL HISTORY: ETT placement COMPARISON: March 29 0440 hour imaging TECHNIQUE: AP portable chest image was obtained 04/08/2021 10:03 am . FINDINGS: Portable chest film was obtained approximately 0440 hours after repositioning of the ET tu be. That examination has not yet been reported when there was possible manipulation or adjustment of the tube. Therefore, a repeat portable examination was obtained 0930 hours. ET tube tip is mid aortic arch level 3.5 cm above the jose l. This is good positioning. Feeding tube extends below the diaphragm. Tip is near the fundus and GE junction. Loop recorder overl ies the lower left chest. Lung parenchymal opacities are stable. Heart and vasculature are normal. No measurable pleural effusi on and no pneumothorax. IMPRESSION: ET tube is in good position mid aortic arch level, 3.5 cm above the jose l. Stable lung parenchymal opacities.
[2021-04-08] MEDS ORDERED: NA CHLORIDE 0.9% 1,000 ML IV ONE (11:57)
--- NOTE | 2021-04-08 15:40 | RAD REPORT ---
EXAM DESCRIPTION: RAD - Chest Single View - 04/08/2021 5:05 am COMPARISON: Chest radiograph April 07, 2021 report only CLINICAL HISTORY: [facility] MAIN vented , ETT verification FINDINGS: A single AP view of the chest demonstrates a normal cardiomediastinal silhouette. A loop r ecorder projects over left chest. The endotracheal tube tip is 5.0 cm from the jose l. The enteric tu be tip projects over the gastric body. No pneumothorax or pleural effusion. Left basilar opacities are present. Osseous structures are intact. IMPRESSION: Left basilar pneumonia or aspiration. Electronically signed by: Raghav Chaney MD 04/08/2021 5:37 AM CDT Due to temporary technical issues with the PACS/Fluency reporting system, reports are being signed by the in house radiologists without review as a courtesy to insure prompt reporting. The interpreting radiologist is fully responsible for the content of the report.
--- NOTE | 2021-04-08 15:48 | P.PN ---
Date of Service: 04/08/21 Subjective Primary Care Provider: jail doctor Chief Complaint: Respiratory failure patient on mechanical ventilation Subjective: sedated , not responsive on propofol (No changes noted. NG tube now in better position and tolerating feeds. Remains on ventilator at SIMV 100%) Physical Examination - Vital Signs Temperature: 97.2 F Blood Pressure: 104/81 Pulse: 88 Respirations: 31 Pulse Ox (%): 99 Physical Exam: General: Demented. sedated HEENT: Neck supple Respiratory: Remains on the ventilator at 100% Fio2 on SIMV Cardiovascular: No edema, Normal S1 S2 Capillary refill: <2 Seconds Gastrointestinal: Normal bowel sounds, Soft and benign. Dobhoff in place Musculoskeletal: No contractures, No erythema, No tenderness Integumentary: No tenderness/swelling, No erythema Neurological deferred Assessment & Plan Discharge Plan: LTAC Plan to discharge in: Greater than 2 days Physician Review Additional Text: COVID: Positive CXR: COMPARISON: Chest Single View dated 11/23/2020; Chest Single View dated 01/07/2019; Chest Single View dated 08/29/2018; Chest Single View dated 04/05/2017 FINDINGS: Portable technique limits examination quality. Mild to moderate bilateral pulmonary opacities are present, which probably represent pulmonary infection/viral infection. The heart is upper limit of normal in size. No displaced fractures. CT Head: COMPARISON: Report from 11/23/2020 TECHNIQUE: Axial CT of the head obtained from the skull apex to the skull base without contrast. This exam was performed according to our departmental dose- optimization program, which includes automated exposure control, adjustment of the mA and/or kV according to patient size and/or use of iterative reconstruction technique. FINDINGS: No acute intracranial hemorrhage identified. No mass, mass effect, shift of the midline, abnormal extra-axial fluid collection or CT evidence of acute ischemic change identified. The ventricular system and sulcal spaces are mildly enlarged compatible with mild cerebral atrophy. Scattered areas of hypodensity throughout the supratentorial white matter are nonspecific and may be related to chronic small vessel ischemic change. Bifrontal and left temporoparietal encephalomalacia compatible with remote infarctions. Bilateral basal ganglia lacunar type infarctions. Mild mucosal thickening of the right maxillary sinus. Mastoid air cells are well aerated. No skull fracture identified. Visualized orbits and globes are un remarkable. Atherosclerotic calcification of the intracranial internal carotid arteries. IMPRESSION: 1. No acute intracranial abnormality by CT criteria. ECHO: MEASUREMENTS (cm) DIASTOLIC (NORMALS) SYSTOLIC (NORMALS) IVSd 1.1 (0.6-1.2) LA Diam 2.8 (1.9-4.0) LVEF 36% LVIDd 5.9 (3.5-5.7) LVIDs 4.8 (2.0-3.5) %FS 18% LVPWd 1.1 (0.6-1.2) Ao Diam 2.5 (2.0-3.7) DIMENSIONAL ASSESSMENT: RIGHT ATRIUM: NORMAL LEFT ATRIUM: NORMAL RIGHT VENTRICLE: NORMAL LEFT VENTRICLE: NORMAL TRICUSPID VALVE: NORMAL MITRAL VALVE: NORMAL PULMONIC VALVE: NORMAL AORTIC VALVE: NORMAL PERICARDIAL EFFUSION: NONE AORTIC ROOT: NORMAL LEFT VENTRICULAR WALL MOTION: MODERATE GLOBAL HYPOKINESIS. DOPPLER/COLOR FLOW: COMMENTS: MODERATE GLOBAL HYPOKINESIS. LEFT VENTRICULAR EJECTION FRACTION 40%. AORTIC SCLEROSIS WITH NO STENOSIS. NO EFFUSION. Impression: Acute hypoxic respiratory failure secondary to COVID-19 pneumonia complicated with leukocytosis Hypotension Acute renal failure superimposed on CKD3 Elevated troponin likely ischemic demand History of CVA/dementia with CT scan showing Bifrontal and left temporoparietal encephalomalacia compatible with remote infarctions and Bilateral basal ganglia lacunar type infarctions Hypernatremia Seizure disorder Hyperlipidemia Plan: Acute hypoxic respiratory failure secondary to COVID-19 pneumonia complicated with leukocytosis: Patient remains on ventilator SIMV at 100% today . pt toleating TF through NG, CRP at 66 better, and ferritin 1210 stable Cont current IV steroids and baricitinib. Continue to wean off oxygen but not very succesful Continue with pulmonology recommendations. WBC up to 17 but no fever, Remains on Rocephin and Diflucan. and full code now Hypotension: resolved off levophed Acute renal failure superimposed on CKD3: resolved Cr 1.12 Elevated troponin likely ischemic demand: Likely demand ischemia, trend troponins, monitor on telemetry. Echocardiogram shows global hypokinesis. Ejection fraction 40%. No cardiac intervention needed. History of CVA/dementia with CT scan showing Bifrontal and left temporoparietal encephalomalacia compatible with remote infarctions and Bilateral basal ganglia lacunar type infarctions: Patient with underlying dementia. Prior CVAs noted. Hypernatremia: Resolved. Currently on IV fluids. Nephrology following Seizure disorder: Continue with medicationKeppra Hyperlipidemia: Continue with Lipitor DVT PPX: Lovenox Code status: Full Discharge Plan: Dr Sales Spoke with daughter she cont to want full code. she agreed to transfer to LTAC before patient can return to a different group home as requested. Marisela [phone]
[2021-04-09] MEDS: CISATRACURIUM INJECTION 2 MG/ML (10 ML Vial) IV PRN ×2 (01:25→04:33)
[2021-04-09] MEDS: propofoL 500 MG/50 ML ML IV PRN ×14 (01:25→23:13)
[2021-04-09] MEDS: FENTANYL CITR 100 MCG/2 ML IV PRN (03:28)
[2021-04-09] MEDS: LORazepam 2 MG/ML VIAL IV PRN (03:28)
[2021-04-09] MEDS: HALOPERIDOL LACT 5 MG/ML INJ IV PRN (05:08)
[2021-04-09] MEDS: INSULIN -REGULAR HUMAN 50 UNIT/0.5 ML ML SQ SCH ×4 (06:00→23:19)
[2021-04-09 06:26] LABS: Arterial Blood Carboxyhemoglob 0.9 % (0-1.5); Blood Gas Oxyhemoglobin 89.6 % (94-97); Blood O2 Saturation 91.3 % (92-98.5)
[2021-04-09 06:53] LABS: BUN Blood Urea Nitrogen 34 mg/dL (7-18); Bicarbonate 30 mmol/L (21-32); Ferritin 1365.4 ng/mL (26-388); Glucose Level 135 mg/dL (74-106); Magnesium 2.2 mg/dL (1.8-2.4); Potassium 4.9 mmol/L (3.5-5.1); Sodium Level 141 mmol/L (136-145)
--- NOTE | 2021-04-09 07:51 | RAD REPORT ---
EXAM DESCRIPTION: Shira Single View04/09/2021 6:24 am CLINICAL HISTORY: Shortness of breath COMPARISON: April 08, 2021 FINDINGS: Bilateral pulmonary opacities are unchanged. Heart is borderline enlarged. Endotracheal tube with its tip at the level of the aortic arch. Feeding tube is coiled within the stomach. The tip lies 4 centimeters from the GE junction IMPRESSION: No significant change since the prior exam
[2021-04-09] MEDS: CEFTRIAXONE/SWI 1gm 1 GM/10 ML SYR IV SCH (08:26)
[2021-04-09] MEDS: THIAMINE HCL 100 MG TABLET PO SCH ×2 (08:26→20:38)
[2021-04-09] MEDS: METHYLPREDNISOLONE 40 MG INJ IV SCH ×2 (08:26→20:39)
[2021-04-09] MEDS: ATORVASTATIN 20 MG TAB PO SCH (08:27)
[2021-04-09] MEDS: FLUCONAZOLE 100 MG TAB PO SCH (08:27)
[2021-04-09] MEDS: ASPIRIN 81 MG CHEWABLE TABLET PO SCH (08:30)
[2021-04-09] MEDS: levETIRAcetam 1,000 MG in NA CHLORIDE 0.9% 100 ML IV SCH ×2 (08:31→20:39)
--- NOTE | 2021-04-09 12:46 | P.PN ---
Subjective Primary Care Provider: [facility] doctor Chief Complaint: Respiratory failure patient on mechanical ventilation Subjective: sedated , not responsive on propofol (No changes noted. NG tube now in better position and tolerating feeds. Remains on ventilator at SIMV 100%) Physical Examination - Vital Signs Temperature: 97.2 F Blood Pressure: 104/81 Pulse: 88 Respirations: 31 Pulse Ox (%): 99 Physical Exam: General: Demented. calm since been on medication but very agitated when it wear off HEENT: Neck supple Respiratory: CTA Dar, Remains on the ventilator at 100% Fio2 CPAP Cardiovascular: No edema, Normal S1 S2 Capillary refill: <2 Seconds Gastrointestinal: Normal bowel sounds, Soft and benign. Dobhoff in place Musculoskeletal: No contractures, No erythema, No tenderness Integumentary: No tenderness/swelling, No erythema Neurological deferred Assessment & Plan Discharge Plan: LTAC Plan to discharge in: Greater than 2 days Physician Review Additional Text: COVID: Positive CXR: 04/09/2021 FINDINGS: Bilateral pulmonary opacities are unchanged. Heart is borderline enlarged. Endotracheal tube with its tip at the level of the aortic arch. Feeding tube is coiled within the stomach. The tip lies 4 centimeters from the GE junction IMPRESSION: No significant change since the prior exam CT Head: COMPARISON: Report from 11/23/2020 TECHNIQUE: Axial CT of the head obtained from the skull apex to the skull base without contrast. This exam was performed according to our departmental dose- optimization program, which includes automated exposure control, adjustment of the mA and/or kV according to patient size and/or use of iterative reconstruction technique. FINDINGS: No acute intracranial hemorrhage identified. No mass, mass effect, shift of the midline, abnormal extra-axial fluid collection or CT evidence of acute ischemic change identified. The ventricular system and sulcal spaces are mildly enlarged compatible with mild cerebral atrophy. Scattered areas of hypodensity throughout the supratentorial white matter are nonspecific and may be related to chronic small vessel ischemic change. Bifrontal and left temporoparietal encephalomalacia compatible with remote infarctions. Bilateral basal ganglia lacunar type infarctions. Mild mucosal thickening of the right maxillary sinus. Mastoid air cells are well aerated. No skull fracture identified. Visualized orbits and globes are unremarkable. Atherosclerotic calcification of the intracranial internal carotid arteries. IMPRESSION: 1. No acute intracranial abnormality by CT criteria. ECHO: MEASUREMENTS (cm) DIASTOLIC (NORMALS) SYSTOLIC (NORMALS) IVSd 1.1 (0.6-1.2) LA Diam 2.8 (1.9-4.0) LVEF 36% LVIDd 5.9 (3.5-5.7) LVIDs 4.8 (2.0-3.5) %FS 18% LVPWd 1.1 (0.6-1.2) Ao Diam 2.5 (2.0-3.7) DIMENSIONAL ASSESSMENT: RIGHT ATRIUM: NORMAL LEFT ATRIUM: NORMAL RIGHT VENTRICLE: NORMAL LEFT VENTRICLE: NORMAL TRICUSPID VALVE: NORMAL MITRAL VALVE: NORMAL PULMONIC VALVE: NORMAL AORTIC VALVE: NORMAL PERICARDIAL EFFUSION: NONE AORTIC ROOT: NORMAL LEFT VENTRICULAR WALL MOTION: MODERATE GLOBAL HYPOKINESIS. DOPPLER/COLOR FLOW: COMMENTS: MODERATE GLOBAL HYPOKINESIS. LEFT VENTRICULAR EJECTION FRACTION 40%. AORTIC SCLEROSIS WITH NO STENOSIS. NO EFFUSION. Impression: Acute hypoxic respiratory failure secondary to COVID-19 pneumonia complicated with leukocytosis Hypotension Acute renal failure superimposed on CKD3 Elevated troponin likely ischemic demand History of CVA/dementia with CT scan showing Bifrontal and left temporoparietal encephalomalacia compatible with remote infarctions and Bilateral basal ganglia lacunar type infarctions Hypernatremia Seizure disorder Hyperlipidemia Plan: Acute hypoxic respiratory failure secondary to COVID-19 pneumonia complicated with leukocytosis: Patient remains on CPAP at 100% . pt toleating TF through NG, CRP much worse to 230 , and ferritin upt o 1365 Cont current IV steroids and baricitinib. weaning still not successful Continue with pulmonology recommendations. WBC was high 17K yesterday but today no labs, no fever, Remains on Rocephin and Diflucan empiricaly. and full code still Hypotension: resolved off levophed Acute renal failure superimposed on CKD3: resolved Cr 1.12 Elevated troponin likely ischemic demand: Likely demand ischemia, trend troponins, monitor on telemetry. Echocardiogram shows global hypokinesis. Ejection fraction 40%. No cardiac intervention needed. History of CVA/dementia with CT scan showing Bifrontal and left temporoparietal encephalomalacia compatible with remote infarctions and Bilateral basal ganglia lacunar type infarctions: Patient with underlying vascular dementia. Prior CVAs noted. Hypernatremia: Resolved. Nephrology following HYPERKALEMIA, resolved today Seizure disorder: Continue with medicationKeppra Hyperlipidemia: Continue with Lipitor DVT PPX: Lovenox Code status: Full Discharge Plan: Dr Sales Spoke with daughter she cont to want full code. she agreed to transfer to LTAC before patient can return to a different jail as requested. Marisela [phone], DNR would be more appropriate since pt have dementia but family will not accept it
[2021-04-09] MEDS: NEPRO 1,000 ML BOT FT SCH (21:03)
[2021-04-10] MEDS: propofoL 500 MG/50 ML ML IV PRN ×8 (00:40→14:30)
[2021-04-10] MEDS: CISATRACURIUM INJECTION 2 MG/ML (10 ML Vial) IV PRN (03:06)
[2021-04-10] MEDS: MIDAZOLAM HCL 2 MG/2 ML INJ IV PRN (03:12)
[2021-04-10 04:48] VITALS: BMI 25.1
[2021-04-10 05:06] LABS: Absolute Lymphocytes (CBC) 0.2 K/uL (0.7-4.9); Basophils % 0.1 % (0-1.3); Hematocrit 36.2 % (39.6-49.0); Lymphocytes % 2.4 % (15.3-44.8); MPV 9.5 fL (7.6-11.3); RBC Red Blood Cell Count 3.71 M/uL (4.33-5.43)
[2021-04-10] MEDS: INSULIN -REGULAR HUMAN 50 UNIT/0.5 ML ML SQ SCH ×3 (05:08→17:20)
[2021-04-10 05:41] LABS: BUN Blood Urea Nitrogen 43 mg/dL (7-18); Bicarbonate 32 mmol/L (21-32); Glucose Level 176 mg/dL (74-106); Magnesium 2.5 mg/dL (1.8-2.4); Potassium 4.9 mmol/L (3.5-5.1); Sodium Level 141 mmol/L (136-145)
[2021-04-10 05:47] LABS: Blood Gas Oxyhemoglobin 96.4 % (94-97); Blood O2 Saturation 98.2 % (92-98.5)
[2021-04-10] MEDS ORDERED: HYDROMORPHONE HCL 2 MG/ML inj IV PRN ×2 (08:18)
[2021-04-10] MEDS: CEFTRIAXONE/SWI 1gm 1 GM/10 ML SYR IV SCH (08:25)
[2021-04-10] MEDS: ASPIRIN 81 MG CHEWABLE TABLET PO SCH (08:26)
[2021-04-10] MEDS: ATORVASTATIN 20 MG TAB PO SCH (08:26)
[2021-04-10] MEDS: THIAMINE HCL 100 MG TABLET PO SCH (08:26)
[2021-04-10] MEDS: FLUCONAZOLE 100 MG TAB PO SCH (08:26)
[2021-04-10] MEDS: LORazepam 2 MG/ML VIAL IV PRN (08:26)
[2021-04-10] MEDS: METHYLPREDNISOLONE 40 MG INJ IV SCH (08:26)
[2021-04-10] MEDS: levETIRAcetam 1,000 MG in NA CHLORIDE 0.9% 100 ML IV SCH (08:27)
--- NOTE | 2021-04-10 08:38 | P.PN ---
Subjective Date of Service: 04/10/21 Primary Care Provider: [facility] doctor Chief Complaint: Respiratory failure patient on mechanical ventilation No change unresponsive Review of Systems is unable to be obtained Physical Examination - Vital Signs Temperature: 97.8 F Blood Pressure: 91/70 Pulse: 85 Respirations: 25 Pulse Ox (%): 95 - Physical Exam General: Unresponsive Assessment & Plan - Problems (Diagnosis) (1) 2018 novel coronavirus-infected pneumonia (NCIP) Current Visit: Yes Status: Acute Plan: Respiratory failure oxygenation satisfactory will wean off the propofol titrate his O2 down labs reviewed renal function is normal prognosis poor patient has been unresponsive since admission recent blood gases show hypoxemia and hypercarbia Physician Review Additional Text: COVID: Positive CXR: COMPARISON: Chest Single View dated 11/23/2020; Chest Single View dated 01/07/2019; Chest Single View dated 08/29/2018; Chest Single View dated 04/05/2017 FINDINGS: Portable technique limits examination quality. Mild to moderate bilateral pulmonary opacities are present, which probably represent pulmonary infection/viral infection. The heart is upper limit of normal in size. No displaced fractures. CT Head: COMPARISON: Report from 11/23/2020 TECHNIQUE: Axial CT of the head obtained from the skull apex to the skull base without contrast. This exam was performed according to our departmental dose-optimization program, which includes automated exposure control, adjustment of the mA and/or kV according to patient size and/or use of iterative reconstruction technique. FINDINGS: No acute intracranial hemorrhage identified. No mass, mass effect, shift of the midline, abnormal extra-axial fluid collection or CT evidence of acute ischemic change identified. The ventricular system and sulcal spaces are m ildly enlarged compatible with mild cerebral atrophy. Scattered areas of hypodensity throughout the supratentorial white matter are nonspecific and may be related to chronic small vessel ischemic change. Bifrontal and left temporoparietal encephalomalacia compatible with remote infarctions. Bilateral basal ganglia lacunar type infarctions. Mild mucosal thickening of the right maxillary sinus. Mastoid air cells are well aerated. No skull fracture identified. Visualized orbits and globes are unremarkable. Atherosclerotic calcification of the intracranial internal carotid arteries. IMPRESSION: 1. No acute intracranial abnormality by CT criteria. ECHO: MEASUREMENTS (cm) DIASTOLIC (NORMALS) SYSTOLIC (NORMALS) IVSd 1.1 (0.6-1.2) LA Diam 2.8 (1.9-4.0) LVEF 36% LVIDd 5.9 (3.5-5.7) LVIDs 4.8 (2.0-3.5) %FS 18% LVPWd 1.1 (0.6-1.2) Ao Diam 2.5 (2.0-3.7) DIMENSIONAL ASSESSMENT: RIGHT ATRIUM: NORMAL LEFT ATRIUM: NORMAL RIGHT VENTRICLE: NORMAL LEFT VENTRICLE: NORMAL TRICUSPID VALVE: NORMAL MITRAL VALVE: NORMAL PULMONIC VALVE: NORMAL AORTIC VALVE: NORMAL PERICARDIAL EFFUSION: NONE AORTIC ROOT: NORMAL LEFT VENTRICULAR WALL MOTION: MODERATE GLOBAL HYPOKINESIS. DOPPLER/COLOR FLOW: COMMENTS: MODERATE GLOBAL HYPOKINESIS. LEFT VENTRICULAR EJECTION FRACTION 40%. AORTIC SCLEROSIS WITH NO STENOSIS. NO EFFUSION. Follow up CXR 04.07.2021: COMPARISON: Portable April 06 TECHNIQUE: AP portable chest image was obtained 04/07/2021 5:33 am . FINDINGS: Endotracheal tube tip is mid aortic arch 4 cm above the jose l. This is adequate positioning and stable. Weighted feeding tube is coiled in the stomach. Interstitial and minimal alveolar opacity pattern has not changed. Cardiomediastinal silhouette is stable. No pneumothorax or enlarging pleural effusion. No acute bony abnormality seen. No acute aortic findings suspected. IMPRESSION: Stable portable chest examination as detailed. Physical Exam: General: Demented. Patient with increased sedation HEENT: Neck supple Respiratory: Remains on the ventilator at 70 % FiO2 Cardiovascular: No edema, Normal S1 S2 Capillary refill: <2 Seconds Gastrointestinal: Normal bowel sounds, Soft and benign. Dobhoff in place Musculoskeletal: No contractures, No erythema, No tenderness Integumentary: No tenderness/swelling, No erythema Neurological: Patient with history of dementia Impression: Acute hypoxic respiratory failure secondary to COVID-19 pneumonia complicated with leukocytosis Hypotension Acute renal failure superimposed on CKD3 Elevated troponin likely ischemic demand History of CVA/dementia with CT scan showing Bifrontal and left temporoparietal encephalomalacia compatible with remote infarctions and Bilateral basal ganglia lacunar type infarctions Hypernatremia Seizure disorder Hyperlipidemia Plan: Acute hypoxic respiratory failure secondary to COVID-19 pneumonia complicated with leukocytosis: Patient remains on ventilator at 70% FiO2. NG tube was replaced yesterday with improvement. Patient tolerating current feeds at this time. CRP and ferritin remain stable. White count improved. Patient remains on current IV steroids and baricitinib. Continue to wean off oxygen. Continue with pulmonology recommendations. Remains on Rocephin and Diflucan. Patient remains full code at this time. Patient vladimir on IV fluids and NG tube feeds. Will discuss with daughter about the possibility of long-term acute care facility placement. Hypotension: Improved overall. Renal function stable. Levophed as needed Acute renal failure superimposed on CKD3: Overall improved. Continue with nephr ology recommendations Elevated troponin likely ischemic demand: Likely demand ischemia, trend troponins, monitor on telemetry. Echocardiogram shows global hypokinesis. Ejection fraction 40%. No cardiac intervention needed. History of CVA/dementia with CT scan showing Bifrontal and left temporoparietal encephalomalacia compatible with remote infarctions and Bilateral basal ganglia lacunar type infarctions: Patient with underlying dementia. Prior CVAs noted. Continue with above plan. NG tube to be advanced at least another 6 cm for adequate positioning. Repeat KUB thereafter to maintain position. Once stable will restart feeds. Hypernatremia: Resolved. Currently on IV fluids. Nephrology continues to adjust. Seizure disorder: Continue with medicationKeppra Hyperlipidemia: Continue with Lipitor DVT PPX: Lovenox Code status: Full Discharge Plan: Spoke with daughter the other day. Patient remains full code. Need to discuss about the possibility of LTAC before patient can return to a different shelter as requested. Left message with daughter. Marisela [phone]
--- NOTE | 2021-04-10 08:44 | RAD REPORT ---
EXAM DESCRIPTION: RAD - Chest Single View - 04/10/2021 5:31 am CLINICAL HISTORY: Intubated Chest pain. COMPARISON: Chest Single View dated 04/09/2021; Chest Single View dated 04/09/2021; Chest Single View dated 04/08/2021; Chest Single View dated 04/08/2021 FINDINGS: Portable technique limits examination quality. Tip of the endotracheal tube is at the superior aortic arch level. Right PICC line has tip in the SVC , unchanged. Enteric tube coils in the stomach. Mild bilateral pulmonary opacities are noted, essenti ally stable since prior study. The heart is upper limit normal in size. IMPRESSION: Stable chest since yesterday's examination
[2021-04-10 12:10] LABS: Blood Morphology Comment NOT SEEN (NOT SEEN); Platelet Estimate ADEQ
--- NOTE | 2021-04-10 13:51 | RAD REPORT ---
EXAM DESCRIPTION: Chest Single View 04/10/2021 12:07 AM CDT CLINICAL HISTORY: 65 years, Male, PICC placement COMPARISON: 04/09/2021 FINDINGS: Single view of the chest was obtained portable. Prior films were compared. The lung volume is decreased. Endotracheal tube and feeding tube in good position. There has been interval placement of a right upper activity PICC line tip of the catheter within the cavoatrial junction and good posi tion. The cardiomediastinal silhouette demonstrate to be unremarkable. The heart is not enlarged. T he thoracic aorta is unremarkable. Persistent increased interstitial airspace opacities. The rest of the soft tissue and bony structures demonstrate to be unremarkable. IMPRESSION: Right upper extremity PICC line in good position. Persistent increased interstitial airspace opacities. Electronically signed by: Patel Sams MD 04/10/2021 12:08 AM CDT Due to temporary technical issues with the PACS/Fluency reporting system, reports are being signed by the in house radiologists without review as a courtesy to insure prompt reporting. The interpreting radiologist is fully responsible for the content of the report.
[2021-04-10 14:18] LABS: Arterial Blood Carboxyhemoglob 1.2 % (0-1.5); Blood Gas Oxyhemoglobin 82.8 % (94-97); Blood O2 Saturation 84.5 % (92-98.5)
[2021-04-10] MEDS ORDERED: MIDAZOLAM HCL 100 MG in NA CHLORIDE 0.9% 80 ML IV PRN (15:18)
--- NOTE | 2021-04-10 16:21 | RAD REPORT ---
EXAM DESCRIPTION: RAD - Chest Single View - 04/10/2021 4:03 pm CLINICAL HISTORY: Hypoxia COMPARISON: Chest Single View dated 04/10/2021; Chest Single View dated 04/09/2021; Chest Single View dated 04/09/2021; Chest Single View dated 04/08/2021 FINDINGS: Lines: Endotracheal tube at the aortic arch. Weighted feeding tube overlying the stomach. Right subclavian approach PICC with tip overlying the SVC. Lungs: Widespread bilateral airspace disease without with mild increased airspace disease in the righ t lung compared with 10 hours prior Pleural: No significant pleural effusions or pneumothorax. Cardiac: The heart size is within normal limits. Bones: No acute fractures. Other: IMPRESSION: Minimally worsened aeration in the right lung compared with 10 hours prior. Support appa ratus in satisfactory position. Findings remain consistent with multifocal pneumonia.
[2021-04-10] MEDS: NOREPINEPHRINE 4 MG in D5W 250 ML IV PRN (16:32)
[2021-04-10 16:45] VITALS: O2SAT 89
[2021-04-10] MEDS ORDERED: NOREPINEPHRINE 8 MG in Dextrose 5%-Water 500 ML IV PRN (17:00)
[2021-04-10] MEDS: NEPRO 1,000 ML BOT FT SCH (17:21)
[2021-04-10 18:19] VITALS: TEMP 98.7
[2021-04-10 18:22] VITALS: BP 82/69
--- NOTE | 2021-04-10 20:14 | P.PN ---
Date of Service: 04/10/21 Vital Signs Temp Pulse Resp BP Pulse Ox 98.7 F 99 H 25 H 82/69 L 57 L 04/10/21 16:00 04/10/21 18:05 04/10/21 18:05 04/10/21 18:05 04/10/21 18:05 Medications Acetaminophen (Acetaminophen 650mg/Rect Supp) 650 mg NM Q6HP PRN PRN Reason: TEMP > 100' F Aspirin (Aspirin 81 Mg Chewable Tablet) 81 mg PO DAILY [facility] Last Admin: 04/10/21 08:26 Dose: 81 mg Documented by: Atorvastatin Calcium (Atorvastatin 20 Mg Tab) 20 mg PO DAILY [facility] Last Admin: 04/10/21 08:26 Dose: 20 mg Documented by: Cisatracurium Besylate (Cisatracurium Injection 2 Mg/Ml (10 Ml Vial)) 4 mg IV Q2H PRN PRN Reason: AGITATION Last Admin: 04/10/21 03:06 Dose: 4 mg Documented by: Dextrose (D50w 25 Gm/50 Ml Syringe) 12.5 gm IV PRN PRN; Protocol PRN Reason: HYPOGLYCEMIA Last Admin: 04/07/21 06:05 Dose: 12.5 gm Documented by: Enteral Nutritional Formula (Nepro 1,000 Ml Bot) 1,000 ml FT CONT [facility] Last Admin: 04/10/21 17:21 Dose: 1,000 ml Documented by: Fluconazole (Fluconazole 100 Mg Tab) 200 mg PO DAILY [facility]; Protocol Last Admin: 04/10/21 08:26 Dose: 200 mg Documented by: Glucagon (Glucagon 1 Mg/Vial) 1 mg IM 1X PRN; Protocol PRN Reason: HYPOGLYCEMIA Haloperidol Lactate (Haloperidol Lact 5 Mg/Ml Inj) 2 mg IV Q4HP PRN PRN Reason: AGITATION Last Admin: 04/09/21 05:08 Dose: 2 mg Documented by: Hydromorphone HCl (Hydromorphone Hcl 2 Mg/Ml Inj) 2 mg IV Q2H PRN PRN Reason: Pain scale 5-7 (Moderate) Last Admin: 04/10/21 10:37 Dose: 2 mg Documented by: Hydromorphone HCl (Hydromorphone Hcl 2 Mg/Ml Inj) 4 mg IV Q2H PRN PRN Reason: Pain scale 8-10 (Severe) Last Admin: 04/10/21 12:40 Dose: 4 mg Documented by: Levetiracetam 1,000 mg/ Sodium (Chloride) 110 mls @ 440 mls/hr IV BID [facility] Last Admin: 04/10/21 08:27 Dose: 110 mls Documented by: Ceftriaxone Sodium/Sodium Chloride (Rocephin 1 Gm/10 Ml Swi Ivp) 1 gm in 10 mls @ 600 mls/min IV DAILY [facility] Last Admin: 04/10/21 08:25 Dose: 10 mls Documented by: Midazolam HCl 100 mg/ Sodium (Chloride) 100 mls @ 0 mls/hr IV PRN PRN; Protocol PRN Reason: SEDATION Last Admin: 04/10/21 15:53 Dose: 100 mls Documented by: Norepinephrine Bitartrate 8 mg (/ Dextrose) 508 mls @ 0 mls/hr IV PRN PRN; Protocol PRN Reason: Hemodynamic Parameters Insulin Human Regular (Insulin -Regular Human 50 Unit/0.5 Ml Ml) 0 unit SQ Q6H [facility]; Protocol Last Admin: 04/10/21 17:20 Dose: Not Given Documented by: Lorazepam (Lorazepam 2 Mg/Ml Vial) 2 mg IV Q2HP PRN PRN Reason: SEDATION Last Admin: 04/10/21 08:26 Dose: 2 mg Documented by: Methylprednisolone Sodium Succinate (Methylprednisolone 40 Mg Inj) 40 mg IV BID [facility] Last Admin: 04/10/21 08:26 Dose: 40 mg Documented by: Midazolam HCl (Midazolam Hcl 2 Mg/2 Ml Inj) 2 mg IV Q2HP PRN PRN Reason: SEDATION Last Admin: 04/10/21 03:12 Dose: 2 mg Documented by: Ondansetron HCl (Ondansetron 4 Mg/2 Ml Vial) 4 mg IV Q6HP PRN PRN Reason: NAUSEA / VOMITING Sodium Chloride (Flush Normal Saline 10 Ml) 10 ml IV BID [facility] Last Admin: 04/10/21 08:26 Dose: 10 ml Documented by: Thiamine HCl (Thiamine Hcl 100 Mg Tablet) 200 mg PO BID [facility] Last Admin: 04/10/21 08:26 Dose: 200 mg Documented by: Microbiology Results 03/23/21 19:15 Blood - Blood Aerobic Blood Culture - Final No growth in 5 days. 03/23/21 19:15 Blood - Blood Anaerobic Blood Culture - Final No growth in 5 days. 03/23/21 19:00 Blood - Blood Aerobic Blood Culture - Final No growth in 5 days. 03/23/21 19:00 Blood - Blood Anaerobic Blood Culture - Final No growth in 5 days. Assessment/ Plan: Nephrology Progress Note Limited IH/ ROS due to AMS. Good urine output. Persistent hypoxia. Condition seems to be worsening; repeat ABG ordered No acute events overnight Vitals, medications blood work and imaging reviewed in the chart General: No distress HEENT: Atraumatic Neck: Supple Respiratory: CTA/ Intubated Cardiovascular: No edema, Regular rate/rhythm Gastrointestinal: Soft and benign, Non-distended Musculoskeletal: No clubbing, No contractures Integumentary: No rashes, No cyanosis Neurological: No speech External genitalia: No edema Greater than 30min patient care. Blood work reviewed in the chart. Imagings Data: EXAM DESCRIPTION: RAD - Chest Single View - 03/23/2021 6:49 pm CLINICAL HISTORY: COUGH Chest pain. COMPARISON: Chest Single View dated 11/23/2020; Chest Single View dated 01/07/2019; Chest Single View dated 08/29/2018; Chest Single View dated 04/05/2017 FINDINGS: Portable technique limits examination quality. Mild to moderate bilateral pulmonary opacities are present, which probably represent pulmonary infection/viral infection. The heart is upper limit of normal in size. No displaced fractures. EXAM DESCRIPTION: CT of the head without contrast CLINICAL HISTORY: CONFUSED COMPARISON: Report from 11/23/2020 TECHNIQUE: Axial CT of the head obtained from the skull apex to the skull base without contrast. This exam was performed according to our departmental dose- optimization program, which includes automated exposure control, adjustment of the mA and/or kV according to patient size and/or use of iterative reconstruction technique. FINDINGS: No acute intracranial hemorrhage identified. No mass, mass effect, shift of the midline, abnormal extra-axial fluid collection or CT evidence of acute ischemic change identified. The ventricular system and sulcal spaces are mildly enlarged compatible with mild cerebral atrophy. Scattered areas of hypodensity throughout the supratentorial white matter are nonspecific and may be related to chronic small vessel ischemic change. Bifrontal and left temporoparietal encephalomalacia compatible with remote infarctions. Bilateral basal ganglia lacunar type infarctions. Mild mucosal thickening of the right maxillary sinus. Mastoid air cells are well aerated. No skull fracture identified. Visualized orbits and globes are unremarkable. Atherosclerotic calcification of the intracranial internal carotid arteries. IMPRESSION: 1. No acute intracranial abnormality by CT criteria. LEFT VENTRICULAR WALL MOTION: MODERATE GLOBAL HYPOKINESIS. DOPPLER/COLOR FLOW: COMMENTS: MODERATE GLOBAL HYPOKINESIS. LEFT VENTRICULAR EJECTION FRACTION 40%. AORTIC SCLEROSIS WITH NO STENOSIS. NO EFFUSION. Conclusions/Impression: [place] in the setting of sepsis/ hypotension CKD III with proteinuria -No NSAIDs Hypernatremia -Monitor sodium Hypocalcemia -Replete prn Septic Shock/ Hypotension -Continue gentle IVF -Norepi prn -IV Albumin prn Rhabdomyolysis Systolic CHF, chronic -Low sodium diet -Daily weight Hyperglycemia secondary steroids -RISS Severe malnutrition -Encourage nutrition -Continue protein supplementation COVID-19 PNA Acute hypoxic respiratory failure -Ventilatory support as ordered; repeat ABG stat -Continue Solumedrol -Continue Rocephin -Continue Baricitinib
[2021-04-10] MEDS ORDERED: EPINEPHrine 1 MG/10 ML SYR IV ONE (20:59)
[2021-04-10] MEDS ORDERED: NA CHLORIDE 0.9% 1,000 ML IV ONE (20:59)
--- NOTE | 2021-04-17 10:16 | P.DS ---
Discharge Date: 04/10/21 Primary Care Provider: assisted doctor Disposition: Discharge Condition: Reason for Admission: Respiratory failure patient on mechanical ventilation - Problems (1) 2019 novel coronavirus-infected pneumonia (NCIP) Status: Acute (2) VITALY (acute kidney injury) Onset Date: ~04/05/17 Status: Acute (3) Dementia, vascular Status: Acute (4) Transient ischemic attack Status: Acute (5) CVA (cerebral vascular accident) Onset Date: Unknown Status: Chronic Qualifiers: CVA mechanism: embolism Precerebral and cerebral artery: unspecified precerebral artery Qualified Code(s): I63.10 - Cerebral infarction due to embolism of unspecified precerebral artery (6) Hypertension Onset Date: Unknown Status: Chronic Qualifiers: Hypertension type: essential hypertension (7) Seizure Onset Date: 01/07/17 Status: Chronic Brief History of Present Illness: Patient is a 65-year-old currently residing at [facility] was transported to the emergency department for respiratory distress. Patient tested positive for Covid on 03/13/2021, is not vaccinated. Upon arrival to the emergency department patient was hypoxic saturating in 80s and hypotensive with a blood pressure of 80/66, patient had difficult venous access and therefore central line was inserted. Further evaluation revealed labs significant for D- dimer 1026 sodium 147 chloride 118 creatinine 3.3 BUN 56 GFR 23 glucose 141 ferritin 1668 magnesium 3.1 AST 110 alk phos 33 troponin 0 0.13 C-reactive protein 154 BNP 1102 procalcitonin 0.65 chest x-ray demonstrates mild to moderate bilateral pulmonary opacities. [facility]ed [facility] out to prison, staff unavailable for questioning, spoke with sister who informed that patient usually communicates verbally and will feed himself, at this time patient not following any verbal commands or communicating verbally, CT head ordered and pending. Patient currently on nasal cannula at 6 to 7 L saturating the low 90s, ED provider wishes to admit for further evaluation and management. Hospital Course: Patient had a prolonged hospitalization. Patient had to be intubated. Patient continued to decline. Patient's clinical symptoms were not improving. Patient ended up having a cardiac arrest. Unfortunately, patient at 1815. Home Medications: Aspirin [Aspirin EC 81 MG] 81 mg PO DAILY 11/24/20 Atorvastatin Calcium [Lipitor*] 20 mg PO DAILY 11/24/20 Carvedilol [Coreg] 3.125 mg PO BID 11/24/20 Donepezil [Aricept*] 5 mg PO DAILY 11/24/20 Levetiracetam [Keppra] 1,000 mg PO BID 11/24/20 Losartan Potassium [Cozaar] 100 mg PO DAILY 11/24/20 Memantine HCl [Namenda*] 10 mg PO BID 11/24/20 Physician Discharge Instructions: Patient & body discharged to a home. Followup: NONE,NONE [Primary Care Provider] - Time spent managing pt's care (in minutes): 35
== END 2021-04-10 21:00 | disposition expired | DRG 870 ==
LOC: ER 17:57 → ERHOLD 21:44 → 3RD-ICU 03-24 15:19
PROVIDERS: ADMIT Family Medicine; ATTEND Hospitalist
PROC: 0JHN3WZ Insertion of Totally Implantable Vascular Access Device into Right Lower Leg Subcutaneous Tissue and Fascia, Percutaneous Approach (ICD-10-PCS; 2021-03-23)
PROC: 06HM33Z Insertion of Infusion Device into Right Femoral Vein, Percutaneous Approach (ICD-10-PCS; 2021-03-23)
PROC: 5A09357 Assistance with Respiratory Ventilation, Less than 24 Consecutive Hours, Continuous Positive Airway Pressure (ICD-10-PCS; 2021-03-25)
PROC: 5A1955Z Respiratory Ventilation, Greater than 96 Consecutive Hours (ICD-10-PCS; principal; 2021-04-02)
PROC: 02HV33Z Insertion of Infusion Device into Superior Vena Cava, Percutaneous Approach (ICD-10-PCS; 2021-04-09)
DX: A41.9 Sepsis, unspecified organism (principal); U07.1 COVID-19; J12.82 Pneumonia due to coronavirus disease 2019; J96.01 Acute respiratory failure with hypoxia; R65.21 Severe sepsis with septic shock; E43 Unspecified severe protein-calorie malnutrition; N17.0 Acute kidney failure with tubular necrosis; E87.0 Hyperosmolality and hypernatremia; N39.0 Urinary tract infection, site not specified; I24.8 Other forms of acute ischemic heart disease; I13.0 Hypertensive heart and chronic kidney disease with heart failure and stage 1 through stage 4 chronic kidney disease, or unspecified chronic kidney disease; I50.22 Chronic systolic (congestive) heart failure; M62.82 Rhabdomyolysis; N18.30 Chronic kidney disease, stage 3 unspecified; E78.00 Pure hypercholesterolemia, unspecified; R73.9 Hyperglycemia, unspecified; F01.50 Vascular dementia, unspecified severity, without behavioral disturbance, psychotic disturbance, mood disturbance, and anxiety; E83.51 Hypocalcemia; G40.909 Epilepsy, unspecified, not intractable, without status epilepticus; K21.9 Gastro-esophageal reflux disease without esophagitis; T38.0X5A Adverse effect of glucocorticoids and synthetic analogues, initial encounter; Z68.25 Body mass index [BMI] 25.0-25.9, adult; Z86.73 Personal history of transient ischemic attack (TIA), and cerebral infarction without residual deficits
CPT/HCPCS: 36415; 36569; 70450; 71045; 74018; 80048; 80053; 80076; 81003; 81015; 82550; 82728; 82805; 82947; 83605; 83735; 83880; 84100; 84132; 84145; 84439; 84443; 84484; 84550; 85025; 85379; 85610; 86140; 87040; 87070; 87086; 87088; 93005; 93306; 94002; 94003; 94660; 94760; 96361; 96372; 96374; 96375; 97110; 97162; 99284; J0171; J0330; J0696; J1170; J1630; J1650; J1953; J2250; J2270; J2920; J2930; J3010; J3411; J3475; J7030; J7042; J7060; J7799; U0003